=== PATIENT | male | born 1945 | race American Indian/Alaskan Native ===

== ENCOUNTER 2017-01-30 07:16 | Day surgery (SDC) | payer MEDICARE ==
[2017-01-05 12:37] VITALS: BMI 21.7
[2017-01-30] MEDS ORDERED: Propofol 10 mg/ml Inj (20 ML) ONE ×2 (10:37)
[2017-01-30] MEDS ORDERED: Midazolam 2 MG/2 ML VIAL ONE (10:50)
[2017-01-30] MEDS ORDERED: Lidocaine Hydrochloride 5 ML INJ ONE (10:51)
[2017-01-30] MEDS ORDERED: Lactated Ringer's 1,000 ML IV SCH (11:30)
[2017-01-30 11:40] VITALS: TEMP 96.9; O2SAT 100
[2017-01-30 13:02] VITALS: BP 138/68; PULSE 60; RESP 15
== END 2017-01-30 12:50 | disposition home or self-care (01) ==
LOC: C.ENDO 07:16
PROVIDERS: ATTEND Internal Medicine Gastroenterology
DX: K21.0 Gastro-esophageal reflux disease with esophagitis (principal); D50.9 Iron deficiency anemia, unspecified; K44.9 Diaphragmatic hernia without obstruction or gangrene; K29.70 Gastritis, unspecified, without bleeding; K25.9 Gastric ulcer, unspecified as acute or chronic, without hemorrhage or perforation; K29.80 Duodenitis without bleeding; K20.9 Esophagitis, unspecified; K29.50 Unspecified chronic gastritis without bleeding
CPT/HCPCS: 43239; 45378; 82948; 88305; 88312; 88313; 88342; J2250; J2704; J3010; J7120

== ENCOUNTER 2017-07-03 06:34 | Day surgery (SDC) | payer MEDICARE ==
[2017-04-03 07:24] VITALS: BMI 20.9
[2017-07-03 07:44] VITALS: O2SAT 100
[2017-07-03] MEDS ORDERED: Dextrose 50% VIAL Inj (50 ml) IV ONE (09:50)
--- NOTE | 2017-07-03 09:58 | CP.SDSHP ---
Same Day Surgery H & P - History Proposed Procedure: colonoscopy Pre-Op Diagnosis: iron deficiency anemia - Previous Medical/Surgical History Cardiac: Hx of CHF Endocrine/Metabolic: Diabetes - Allergies Allergies: Allergies No Known Allergies Allergy (Verified 07/03/17 07:21) - Physical Exam General Appearance: NAD Vital Signs: Vital Signs 07/03/17 07/03/17 07:10 07:20 Temperature 97 F L Pulse Rate 76 76 Respiratory 19 Rate Blood Pressure 148/80 O2 Sat by Pulse 100 Oximetry Mental Status: Alert & Oriented x3 Neuro: WNL Heart: WNL Lungs: WNL GI: WNL - {Optional Preform as Required} Abdomen: WNL - Impression Pt. Evaluated Today:Candidate for Anesthesia & Procedure: Yes - Date & Time Date: 07/03/17 Time: 09:58 Short Stay Discharge - Short Stay Discharge Admitting Diagnosis/Reason for Visit: ANEMIA Disposition: HOME/ ROUTINE
[2017-07-03] MEDS ORDERED: Propofol 10 mg/ml Inj (20 ML) ONE (10:03)
[2017-07-03 14:42] VITALS: TEMP 96.8
[2017-07-03 14:55] VITALS: BP 140/81; PULSE 62; RESP 13
== END 2017-07-03 12:20 | disposition home or self-care (01) ==
LOC: C.ENDO 06:34
PROVIDERS: ATTEND Internal Medicine Gastroenterology
DX: D50.9 Iron deficiency anemia, unspecified (principal); Z53.09 Procedure and treatment not carried out because of other contraindication; E11.9 Type 2 diabetes mellitus without complications
CPT/HCPCS: 45378; 82948; J2704; J7070

== ENCOUNTER 2017-09-25 00:56 | Inpatient (IN) | payer MEDICARE ==
[2017-09-25 00:56] VITALS: BMI 21.2
[2017-09-25 01:44] LABS: URINE BILIRUBIN NEGATIVE (NEGATIVE); URINE CLARITY Clear (Clear); URINE COLOR Yellow (YELLOW); URINE GLUCOSE (UA) 1+ mg/dL (Normal); URINE LEUKOCYTE ESTERASE NEG Leu/uL (Negative); URINE PROTEIN 2+ mg/dL (NEGATIVE); URINE UROBILINOGEN NORMAL mg/dL (0.2-1.0)
[2017-09-25 02:02] LABS: URINE BLOOD TRACE (NEGATIVE)
[2017-09-25 02:26] LABS: BASO % 0.3 % (0.0-2.0); EOS # 0.1 K/uL (0.0-0.7); EOS % 0.8 % (0.0-4.0); HEMOGLOBIN 11.3 g/dL (12.0-18.0); LYMPH # 0.7 K/uL (1.0-4.3); LYMPH % 5.5 % (20.0-40.0); MEAN CELL VOLUME 82.9 fL (80.0-94.0); MEAN CORPUSCULAR HEMOGLOBIN 26.9 pg (27.0-31.0); MEAN CORPUSCULAR HGB CONC 32.5 g/dL (33.0-37.0); MEAN PLATELET VOLUME 8.8 fL (7.2-11.7); MONO # 0.4 K/uL (0.0-0.8); MONO % 2.9 % (0.0-10.0); NEUT # 11.1 K/uL (1.8-7.0); NEUT % 90.5 % (50.0-75.0); NRBC % 0.1 % (0.0-2.0); PLATELET COUNT 305 K/uL (130-400); RBC 4.18 Mil/uL (4.40-5.90); WHITE BLOOD COUNT 12.2 K/uL (4.8-10.8)
[2017-09-25 02:51] LABS: ALB/GLOB RATIO 0.9 (1.0-2.1); ALBUMIN 4.3 g/dL (3.5-5.0); CALCIUM 9.6 mg/dl (8.6-10.4)
[2017-09-25 03:15] LABS: LYMPHOCYTE 7 % (20-40); MONOCYTE 5 % (0-10); NEUTROPHIL 88 % (50-75); PLATELET CLUMPS PRESENT; PLATELET ESTIMATE NORMAL (NORMAL); TOTAL CELLS COUNTED 100
[2017-09-25 03:16] LABS: ANISOCYTOSIS SLIGHT
[2017-09-25] MEDS ORDERED: Dextrose 50% SYRINGE Inj (50 ml) IV STA (03:36)
[2017-09-25] MEDS ORDERED: Dextrose 50% SYRINGE Inj (50 ml) ONE (03:39)
--- NOTE | 2017-09-25 05:03 | C.PDOC ---
History Of Present Illness 72yo male, history of diabetes, hypertension, pancreatitis, BPH, CHF and CKD, brought to ER by EMS after he was found altered at home with a glucose level of 23; patient was given dextrose by EMS en route to ER with improvement of symptoms. Prior records reviewed, and patient was seen at [facility] on 09/20 with hypolgcemia and right sided facial droop, was evaluated and had a MRI/MRA, CT Head, which were both unremarkable for a stroke. Patient was admitted overnight for observation and discharged home on 09/21/17. He currently has no other medical complaints. Time Seen by Provider: 09/25/17 01:06 Chief Complaint (Nursing): Medical Clearance History Per: EMS, Family History/Exam Limitations: no limitations Onset/Duration Of Symptoms: Hrs Current Symptoms Are (Timing): Better Past Medical History Reviewed: Historical Data, Nursing Documentation, Vital Signs Vital Signs: Last Vital Signs Temp 97.2 F L 09/25/17 01:02 Pulse 67 09/25/17 01:02 Resp 20 09/25/17 01:02 BP 175/87 H 09/25/17 01:02 Pulse Ox 97 09/25/17 05:08 - Medical History PMH: Anemia, Arthritis, CHF, Diabetes, Gastrointestinal Ulcer, HTN, Hypercholesterolemia, Pancreatitis (CHRONIC), Peripheral Edema, Chronic Kidney Disease Comment Only: Seizures (pt denies) Surgical History: Endoscopy Denies: Pacemaker - [facility] Procedures FLORESITA ING HRN REP-GRFT NOS (05/04/14) INSERTION OF INFUSION DEV INTO R FEMOR VEIN, PERC APPROACH (09/15/17) INTRODUCE OF OTH THERAP SUBST INTO RESP TRACT, VIA OPENING (08/22/17) Family History: States: No Known Family Hx - Social History Hx Tobacco Use: No Hx Alcohol Use: Yes (H/O ETOH ABUSE) Hx Substance Use: No - Immunization History Hx Tetanus Toxoid Vaccination: No Hx Influenza Vaccination: Yes Hx Pneumococcal Vaccination: No Review Of Systems Except As Marked, All Systems Reviewed And Found Negative. Constitutional: Positive for: Weakness, Malaise. Negative for: Fever, Chills Eyes: Negative for: Pain, Vision Change, Eyelid Inflammation, Redness ENT: Negative for: Ear Pain, Ear Discharge, Nose Congestion, Throat Swelling Cardiovascular: Negative for: Chest Pain, Palpitations, Orthopnea Respiratory: Negative for: Cough, Shortness of Breath, Hemoptysis, SOB with Excertion, Pleuritic Pain Gastrointestinal: Negative for: Nausea, Vomiting, Constipation, Melena Genitourinary: Negative for: Dysuria, Hematuria Musculoskeletal: Negative for: Neck Pain, Back Pain Skin: Negative for: Rash Neurological: Positive for: Weakness, Confusion. Negative for: Altered Mental Status Psych: Negative for: Anxiety Physical Exam - Physical Exam Appears: Non-toxic, Other (frail, weak appearing) Skin: Normal Color, Warm, Dry Head: Atraumatic, Normacephalic Eye(s): bilateral: Normal Inspection, PERRL Oral Mucosa: Moist Neck: Normal ROM, Supple Chest: Symmetrical Cardiovascular: Rhythm Regular Respiratory: Normal Breath Sounds, No Wheezing Gastrointestinal/Abdominal: Normal Exam, Soft, No Tenderness Back: Normal Inspection, No CVA Tenderness Extremity: Normal ROM, No Deformity Neurological/Psych: Oriented x3 Gait: Steady ED Course And Treatment - Laboratory Results Result Diagrams: 09/25/17 02:23 09/25/17 02:23 O2 Sat by Pulse Oximetry: 97 (RA) Pulse Ox Interpretation: Normal Critical Care Time - Critical Care Note Total Time (in mins): 30 Documented critical care: time excludes all time spent performing seperately billable procedures. Medical Decision Making Medical Decision Making: Impression: Hypoglycemic episode Plan: -- EKG -- Labs -- CXR -- Dextrose 50ml IVPB Provider called to bedside immediately as glucose dropped to 23, 2nd amp of dextrose given in ER and repeat sugar was 117. CXR reviewed and shows no changes from prior. Time: [address] Beard, and patient to be admitted under his service. Per Dr. beard's request, Dr. Price for endocrine consult. Disposition - Disposition Disposition Time: 06:35 Condition: GOOD - Clinical Impression Clinical Impression: Hypoglycemia, Acute on chronic renal insufficiency, Altered mental status - Scribe Statement The provider has reviewed the documentation as recorded by the Scribe (Kathy Ling) Provider Attestation: All medical record entries made by the Scribe were at my direction and personally dictated by me. I have reviewed the chart and agree that the record accurately reflects my personal performance of the history, physical exam, medical decision making, and the department course for this patient. I have also personally directed, reviewed, and agree with the discharge instructions and disposition.
[2017-09-25] MEDS ORDERED: Docusate-Senna 50 mg-8.6 mg Tab PO PRN (05:36)
--- NOTE | 2017-09-25 07:01 | CT ---
EXAM: CT Abdomen and Pelvis Without Intravenous Contrast CLINICAL HISTORY: 72 years old, male; Pain; Abdominal pain; Patient HX: 09-16-17 images sent; Additional info: Low bs TECHNIQUE: Axial computed tomography images of the abdomen and pelvis without intravenous contrast. All CT scans at this facility use one or more dose reduction techniques, viz.: automated exposure control; ma/kV adjustment per patient size (including targeted exams where dose is matched to indication; i.e. head); or iterative reconstruction technique. 633 images are submitted. Coronal and sagittal reformatted images were created and reviewed. COMPARISON: No relevant prior studies available. FINDINGS: Artifacts: Overlying clothing artifacts. Lung bases: There is moderate perihilar interstitial prominence consistent with viral bronchitis versus reactive airway disease versus chronic changes versus early failure.Bibasilar nonspecific infiltrates are present, consistent with atelectasis or pneumonia. Heart: Cardiomegaly. ABDOMEN:Limitations: Absence of IV contrast decreases sensitivity for detecting vascular and visceral injury and abnormality. Liver: Unremarkable. Gallbladder and bile ducts: Gallbladder distention with mild gallbladder wall prominence. Pancreas: Chronic calcific pancreatitis. No ductal dilation. Spleen: Unremarkable. No splenomegaly. Adrenals: Unremarkable. No mass. Kidneys and ureters: Tiny nonobstructive hyperdensity in the right kidney. Stomach and bowel: Large hiatal hernia with herniation of gastric fundus into the chest. There is delayed emptying versus stasis versus gastroesophageal reflux. There are nonspecific fluid filled stomach, small bowel loops. These findings can represent ileus versus gastroenteritis/enteritis versus slow transit versus peristalsis. Large amount of stool in the colon. Nonspecific colonic wall thickening. Correlation with patient's clinical history of constipation versus stool related colitis is recommended. PELVIS: Appendix: The appendix not identified with complete certainty due to unopacified cecum and distal small bowel. There is lack of intra-abdominal fat. If clinical concern remains, a repeat study with thin sections after an appropriate time interval may allow oral contrast to opacify the cecum. Bladder: Bladder distention. Correlation with patient's voiding status is recommended. Reproductive: Unremarkable. ABDOMEN and PELVIS: Intraperitoneal space: Unremarkable. No free air. No significant fluid collection. Bones/joints: Right hip prosthesis. No acute fracture. No dislocation. Soft tissues: There is ossific densities involving the lateral soft tissues of the right thigh. Vasculature: The aorta demonstrates calcified plaque and is mildly ectatic but normal in caliber. No abdominal aortic aneurysm. Lymph nodes: Unremarkable. No enlarged lymph nodes. IMPRESSION: 1.There is moderate perihilar interstitial prominence consistent with viral bronchitis versus reactive airway disease versus chronic changes versus early failure.Bibasilar nonspecific infiltrates are present, consistent with atelectasis or pneumonia. 2.Large amount of stool in the colon. Nonspecific colonic wall thickening. Correlation with patient's clinical history of constipation versus stool related colitis is recommended.
--- NOTE | 2017-09-25 08:15 | RAD ---
PROCEDURE: CHEST RADIOGRAPH, 1 VIEW HISTORY: abd pain COMPARISON: 03/18/2017 FINDINGS: LUNGS: Clear. PLEURA: No pneumothorax or pleural fluid seen. CARDIOVASCULAR: Normal. OSSEOUS STRUCTURES: No significant abnormalities. VISUALIZED UPPER ABDOMEN: Normal. OTHER FINDINGS: None. IMPRESSION: No active disease.
[2017-09-25 09:48] LABS: HEMOGLOBIN 9.6 g/dL (12.0-18.0); MEAN CORPUSCULAR HEMOGLOBIN 26.9 pg (27.0-31.0); MEAN CORPUSCULAR HGB CONC 33.2 g/dL (33.0-37.0); MEAN PLATELET VOLUME 7.5 fL (7.2-11.7); RBC 3.59 Mil/uL (4.40-5.90); RED CELL DISTRIBUTION WIDTH 16.4 % (11.5-14.5)
[2017-09-25 10:31] LABS: ALB/GLOB RATIO 0.9 (1.0-2.1); ALBUMIN 3.4 g/dL (3.5-5.0); ALT/SGPT 30 U/L (21-72); AST/SGOT 36 U/L (17-59); BLOOD UREA NITROGEN 24 mg/dL (9-20); CALCIUM 8.7 mg/dl (8.6-10.4); GFR AFRICAN-AMERICAN 52; GFR NON-AFRICAN AMERICAN 43; LIPASE < 10 U/L (23-300)
--- NOTE | 2017-09-25 11:42 | HP ---
HISTORY OF PRESENT ILLNESS: This is the patient's third admission to hospital, two at [facility] and now at [facility] over the past 3 weeks for a low blood sugar and confusion. He is a 72-year-old -[place] man, who has now been off diabetes medications for about a week and is now having 20s and 30s at home on blood sugars, even though he is off the diabetes medication. He has a history of diabetes, hypertension, pancreatitis, BPH, CHF, and CKD. He has altered mental status at home, glucose was 23. He was given dextrose in the field. He is doing better now in the ER. We are not sure why his hypoglycemia persists. He did have right facial droop at one time, it is improved. He was ruled out for stroke recently when he came in the last time in [facility]. He was just discharged, 09/21/2017. He has anemia, arthritis, CHF, diabetes, gastrointestinal ulcer, hypertension, high cholesterol, pancreatitis which is chronic, peripheral edema, chronic kidney disease. He had seizures in the past, and endoscopy and pacemaker, bilateral inguinal hernia repairs, insertion of infusion right femoral vein. SOCIAL HISTORY: No smoking. He does drink alcohol. No substance abuse. FAMILY HISTORY: There was diabetes and hypertension in the family. REVIEW OF SYSTEMS: He was found with altered status again. He is weak. He is now in the emergency room after getting dextrose, alert and comfortable, asking to go home again. I told him he is not going home until we try and figure this out. We ordered a CAT scan of the abdomen and pelvis to look for insulinoma, also consult endocrinology to put him on dextrose IV. PHYSICAL EXAMINATION: VITAL SIGNS: He has 97.2 temperature, 67 pulse, 20 respiratory rate, 175/87 blood pressure, and 97%O2 sat. GENERAL: He is alert and oriented x3. He is comfortable, well appearing. He is not adamant anymore. SKIN: Warm and dry. HEENT: Head atraumatic and normocephalic. Extraocular muscles are intact. Pupils equal and reactive to light. Throat is moist. NECK: Supple. HEART: Regular rate. LUNGS: Decreased breath sounds, but clear to auscultation. No wheezes. No rhonchi. No rales. ABDOMEN: Soft and nontender. Positive bowel sounds. No guarding. No rebound. No CVA tenderness. EXTREMITIES: No edema. NEUROLOGIC: He can move all four extremities equally. He is smiling. He can stick out his tongue in midline. Cranial nerves II through XII grossly intact. GCS is 15 at this time. He is oriented x3. THYROID: Midline. No palpable appreciable lymphadenopathy. LABORATORY DATA: On blood test, he has 142 sodium, potassium 4.8, BUN is 27, creatinine is 2, had been on dextrose IV. GFR is 33. Blood sugars were less than 20 after dextrose then went to 69. Calcium is 9.6, total shaq is 0.6, AST is 41, ALT is 36, alk phos 158, total protein is 8.9. White count is high at 12.2, could be stress related. It will check it tomorrow. Hemoglobin is 11.3, hematocrit is 34.7, platelets 305. Urine is clean. Chest x-ray is pending. PLAN: We will blood sugar again. We will consult endocrinology, get a CAT scan, get labs. We will continue with aggressive treatment and care. with hypoglycemia, change in mental status. Zohaib Morgan DO MTDGeoffrey
--- NOTE | 2017-09-25 14:41 | CP.PCM.CON ---
History of Present Illness - History of Present Illness History of Present Illness: Nephrology Consultation Note: Assessment: stable Acute Kidney Injury (N17.9) improved constipation Uncontrolled diabetes mellitus with hypoglycemia Diabetic chronic Kidney Disease (E11.22) Hypertensive Chronic Kidney Disease (I12.9) Chronic Kidney Disease (N18.3) Stage 3 with 580 mg proteinuria (R80.9) likely due to DM Anemia (D64.9), Vit D def with Secondary Hyperparathyroidism (E21.1), HTN (I12.9 ) BPH, diabetic neuropathy, chronic pancreatitis on opiates gastric ulcer, hx of etoh and smoking in past Plan No acute need for renal replacement therapy at this time. Hypertension control with meds as ordered. Patient not on ACEI/ARB due to KHALIDA Tendency and hyperkalemia. resume hydralazine, and norvasc. as per outpt list, pt not on coreg. considering his hypoglycemic episodes, will try to avoid Beta- blockers Monitor Input/Output, daily weights and renal function with basic metabolic panel Patient supposed to be on [place] at home every day, continue at d/c resume lyrica for diabetic neuropathy At home pt on sodium bicarbonate 650 mg 2 times a day, iron 325 mg 3 times a day , multivitamin once a day, Flomax 0.4 mg once a day, calcitriol 0.25 g once a day: resume continue with PPI as pt with hx of gastric ulcer endocrine requested Dose meds/antibiotics for reduced GFR. Avoid fleets enema/magnesium based laxatives. Avoid nephrotoxins/NSAIDs/ iodinated contrast (unless needed emergently) Glycemic control Further work up/management as per primary team Thanks for allowing me to participate in care of your patient. Will follow patient with you. Please call if any Qs. d/w team Dr Juan Diego Light Office: [phone] CC; low sugar reason for consult: KHALIDA, CKD HPI:Pt is a 71 M with hx of uncontrolled diabetes Mellitus ( 30 years) [ endocrine Dr Matson as outpt] with retinopathy, hypertension (15-20 years), CKD 3 (baseline cr 2.0 range), s/p Right total hip replacement, gout, chronic pancreatitis on chronic opiates as morphine, gastric ulcer (EGD jan 2017) with hiatal hernia Presented to the hospital With AMS and hypoglycemia. Renal consult for kidney disease management pt has uncontrolled DM with sugars ranging from 20 to 500+ he had recent hospitalizations for DKA/hyperglycemia and hypoglycemia ROS: feels better now. denies CP/SOB. reports nausea and upper abdomen pain. rest all other negative except as mentioned in HPI Physical Examination: General Appearance: in no acute respiratory distress, co-operative . better appearing Vitals reviewed and noted as below Head; Atraumatic, normocephalic ENT: no ulcers no thrush. Tongue is midline. Oropharynx: no rash or ulcers. EYES: Pupils are equal, round and reactive to light accommodation. Eye muscles and extraocular movement intact. Sclera is anicteric. Neck; supple no lymphadenopathy, no thyromegaly or bruit Lungs: Normal respiratory rate/effort. Breath sounds bilateral equal and clear Heart: Normal rate. s1s2 normal. No rub or gallop. Extremities: 2+ edema. No varicose veins Neurological: Patient is AO x 3 no focal deficit Skin: Warm and dry. Normal turgor. No rash. Palpitation: Normal elasticity for age Abdomen: Abdomen is soft. Bowel sounds +. There is no abdominal tenderness, no guarding/rigidity no organomegaly Psych: normal affect/mood and good insight MSK: no joint tenderness or swelling. Digits and nails normal, no deformity : kidney or bladder not palpable Labs/imaging reviewed. Past medical history, past surgical history, family history, social history, allergy reviewed and noted as below Family hx: no hx of CKD. Rest non-contributory Work up: jan 2017: a1c 8.5 urine proc/cr 724 Ua 30 pr no blood 04/04/2017: Na 140 K 6 Bicarb 17 BUN/Cr 35/2.2 (GFR 38%) PTH 881 Vit D <13 Hb 11.3 06/11/2017: SPEP neg [place]/lambda ratio normal although faint free lambda in JANI albumin 4.2 TSH 2.3 A1c 9.6% LDL 41 Hb 12.1 9% Ferritin 28 folate >20 B12 >1000 PTH 902 Phos 4.7 Vit D <13 Na 135 K 5.5 Bicarb 19 Ca 9.2 BUN/Cr 40/2.0 (GFR 42) UA 30 protein 500 glucose no blood pr/cr ratio 587 mg/gr creat as outpt leg art doppler/JENNYFER: WNL, renal sono 7 mm cyst and aortic sono: no aneursym Past Patient History - Infectious Disease Hx of Infectious Diseases: None - Tetanus Immunizations Tetanus Immunization: Unknown - Past Medical History & Family History Past Medical History?: Yes - Past Social History Smoking Status: Former Smoker - CARDIAC Hx Congestive Heart Failure: Yes Hx Hypercholesterolemia: Yes Hx Hypertension: Yes Hx Pacemaker: No Hx Peripheral Edema: Yes - PULMONARY Hx Respiratory Disorders: Yes (USED TO SMOKE 3 PPD X 35 YRS.QUIT 1989) - NEUROLOGICAL Hx Seizures: (pt denies) - HEENT Hx HEENT Problems: Yes Hx Cataracts: Yes (BILATERAL) - RENAL Hx Chronic Kidney Disease: Yes - ENDOCRINE/METABOLIC Hx Diabetes Mellitus Type 2: Yes - HEMATOLOGICAL/ONCOLOGICAL Hx Anemia: Yes - INTEGUMENTARY Hx Dermatological Problems: No - MUSCULOSKELETAL/RHEUMATOLOGICAL Hx Arthritis: Yes - GASTROINTESTINAL Hx Pancreatitis: Yes (CHRONIC) - GENITOURINARY/GYNECOLOGICAL Hx Genitourinary Disorders: Yes Hx Prostate Problems: Yes (R TURP for BPH) - PSYCHIATRIC Hx Substance Use: No - SURGICAL HISTORY Hx Arthroscopy: Yes (LEFT SHOULDER) Hx Cataract Extraction: Yes (LEFT EYE) Hx Joint Replacement: Yes (RIGHT HIP ) Hx Musculoskeletal Surgery: Yes Hx Orthopedic Surgery: Yes Other/Comment: hernia repair, left shoulder torn ligament - ANESTHESIA Hx Anesthesia: Yes Hx Anesthesia Reactions: No Hx Malignant Hyperthermia: No Meds Allergies/Adverse Reactions: Allergies Allergy/AdvReac Type Severity Reaction Status Date / Time No Known Allergies Allergy Verified 09/20/17 12:37 - Medications Medications: Current Medications Amlodipine Besylate (Norvasc) 10 mg PO DAILY [facility] Last Admin: 09/25/17 09:32 Dose: 10 mg Aspirin (Ecotrin) 81 mg PO DAILY [facility] Last Admin: 09/25/17 09:31 Dose: 81 mg Calcitriol (Rocaltrol) 0.25 mcg PO DAILY [facility] Furosemide (Lasix) 40 mg PO BID [facility] Hydralazine HCl (Apresoline) 100 mg PO TID [facility] Pantoprazole Sodium (Protonix Ec Tab) 40 mg PO DAILY [facility] Pregabalin (Lyrica) 75 mg PO BID [facility] Rosuvastatin Calcium (Crestor) 5 mg PO HS [facility] Senna/Docusate Sodium (Senokot S 50 Mg-8.6 Mg) 1 tab PO BID PRN PRN Reason: Constipation Last Admin: 09/25/17 09:31 Dose: 1 tab Sodium Bicarbonate (Sodium Bicarbonate Tab) 650 mg PO BID [facility] Last Admin: 09/25/17 09:32 Dose: 650 mg Tamsulosin HCl (Flomax) 0.4 mg PO DAILY [facility] Last Admin: 09/25/17 09:31 Dose: 0.4 mg Results - Vital Signs Recent Vital Signs: Last Vital Signs Temp 98 F 09/25/17 09:36 Pulse 78 09/25/17 09:36 Resp 18 09/25/17 09:36 BP 140/86 09/25/17 09:36 Pulse Ox 98 09/25/17 09:36 - Labs Result Diagrams: 09/25/17 09:38 09/25/17 09:38 Labs: Laboratory Results - last 24 hr 09/25/17 09/25/17 09/25/17 01:03 01:38 02:23 WBC 12.2 H D RBC 4.18 L Hgb 11.3 L Hct 34.7 L MCV 82.9 D MCH 26.9 L MCHC 32.5 L RDW 17.0 H Plt Count 305 MPV 8.8 Neut % (Auto) 90.5 H Lymph % (Auto) 5.5 L [place] % (Auto) 2.9 Eos % (Auto) 0.8 Baso % (Auto) 0.3 Neut # (Auto) 11.1 H Lymph # (Auto) 0.7 L [place] # (Auto) 0.4 Eos # (Auto) 0.1 Baso # (Auto) 0.0 Neutrophils % (Manual) 88 H Lymphocytes % (Manual) 7 L Monocytes % (Manual) 5 Platelet Estimate Normal Plt Clumps, EDTA Present Anisocytosis (manual) Slight Sodium Potassium Chloride Carbon Dioxide Anion Gap BUN Creatinine Est GFR ( Amer) Est GFR (Non-Af Amer) POC Glucose (mg/dL) 117 H Random Glucose Hemoglobin A1c Calcium Total Bilirubin AST ALT Alkaline Phosphatase Total Protein Albumin Globulin Albumin/Globulin Ratio Lipase Urine Color Yellow Urine Clarity Clear Urine pH 5.0 Ur Specific [place] 1.017 Urine Protein 2+ H Urine Glucose (UA) 1+ H Urine Ketones Negative Urine Blood Trace H Urine Nitrate Negative Urine Bilirubin Negative Urine Urobilinogen Normal Ur Leukocyte Esterase Neg Urine WBC (Auto) < 1 Urine RBC (Auto) 1 09/25/17 09/25/17 09/25/17 02:23 03:35 04:35 WBC RBC Hgb Hct MCV MCH MCHC RDW Plt Count MPV Neut % (Auto) Lymph % (Auto) [place] % (Auto) Eos % (Auto) Baso % (Auto) Neut # (Auto) Lymph # (Auto) [place] # (Auto) Eos # (Auto) Baso # (Auto) Neutrophils % (Manual) Lymphocytes % (Manual) Monocytes % (Manual) Platelet Estimate Plt Clumps, EDTA Anisocytosis (manual) Sodium 142 Potassium 4.8 Chloride 107 Carbon Dioxide 21 L Anion Gap 20 BUN 27 H Creatinine 2.0 H Est GFR ( Amer) 40 Est GFR (Non-Af Amer) 33 POC Glucose (mg/dL) < 20 L* 69 Random Glucose 58 L Hemoglobin A1c Calcium 9.6 Total Bilirubin 0.6 AST 41 ALT 36 Alkaline Phosphatase 158 H D Total Protein 8.9 H Albumin 4.3 Globulin 4.6 H Albumin/Globulin Ratio 0.9 L Lipase Urine Color Urine Clarity Urine pH Ur Specific [place] Urine Protein Urine Glucose (UA) Urine Ketones Urine Blood Urine Nitrate Urine Bilirubin Urine Urobilinogen Ur Leukocyte Esterase Urine WBC (Auto) Urine RBC (Auto) 09/25/17 09/25/17 09/25/17 09:38 09:38 09:38 WBC 6.0 D RBC 3.59 L Hgb 9.6 L Hct 29.1 L MCV 81.0 MCH 26.9 L MCHC 33.2 RDW 16.4 H Plt Count 392 MPV 7.5 Neut % (Auto) Lymph % (Auto) [place] % (Auto) Eos % (Auto) Baso % (Auto) Neut # (Auto) Lymph # (Auto) [place] # (Auto) Eos # (Auto) Baso # (Auto) Neutrophils % (Manual) Lymphocytes % (Manual) Monocytes % (Manual) Platelet Estimate Plt Clumps, EDTA Anisocytosis (manual) Sodium 139 Potassium 4.9 Chloride 108 H Carbon Dioxide 19 L Anion Gap 17 BUN 24 H Creatinine 1.6 H Est GFR ( Amer) 52 Est GFR (Non-Af Amer) 43 POC Glucose (mg/dL) Random Glucose 88 Hemoglobin A1c 11.8 H Calcium 8.7 Total Bilirubin 0.4 AST 36 ALT 30 Alkaline Phosphatase 115 Total Protein 7.2 Albumin 3.4 L D Globulin 3.8 Albumin/Globulin Ratio 0.9 L Lipase < 10 L Urine Color Urine Clarity Urine pH Ur Specific [place] Urine Protein Urine Glucose (UA) Urine Ketones Urine Blood Urine Nitrate Urine Bilirubin Urine Urobilinogen Ur Leukocyte Esterase Urine WBC (Auto) Urine RBC (Auto) 09/25/17 11:27 WBC RBC Hgb Hct MCV MCH MCHC RDW Plt Count MPV Neut % (Auto) Lymph % (Auto) [place] % (Auto) Eos % (Auto) Baso % (Auto) Neut # (Auto) Lymph # (Auto) [place] # (Auto) Eos # (Auto) Baso # (Auto) Neutrophils % (Manual) Lymphocytes % (Manual) Monocytes % (Manual) Platelet Estimate Plt Clumps, EDTA Anisocytosis (manual) Sodium Potassium Chloride Carbon Dioxide Anion Gap BUN Creatinine Est GFR ( Amer) Est GFR (Non-Af Amer) POC Glucose (mg/dL) 196 H Random Glucose Hemoglobin A1c Calcium Total Bilirubin AST ALT Alkaline Phosphatase Total Protein Albumin Globulin Albumin/Globulin Ratio Lipase Urine Color Urine Clarity Urine pH Ur Specific [place] Urine Protein Urine Glucose (UA) Urine Ketones Urine Blood Urine Nitrate Urine Bilirubin Urine Urobilinogen Ur Leukocyte Esterase Urine WBC (Auto) Urine RBC (Auto)
[2017-09-25 17:07] VITALS: RESP 20
[2017-09-25] MEDS: (Novolog) Insulin Aspart, Recombinant 100 u/ml 10 ml vial SC SCH (21:51)
[2017-09-26] MEDS: (Novolog) Insulin Aspart, Recombinant 100 u/ml 10 ml vial SC SCH ×4 (07:46→21:38)
[2017-09-26] MEDS: Dextrose 5%/0.9% NS 1,000 ML IV SCH (07:52)
--- NOTE | 2017-09-26 08:11 | CP.PCM.CON ---
<Janell Sandy - Last Filed: 09/26/17 12:04> History of Present Illness - History of Present Illness History of Present Illness: PGY4 GI Initial consult Ferny Davidson is a 72M w/ hx of recurrent pancreatitis, HTN, uncontrolled insulin dependent DM who presented with AMS due to hypoglycemia. He was found to have a glucose level of 26~. A CT revealed large amounts of stool in the colon. Since admission, he notes 2 large BM. He denies any blood, melena, or change in caliber of stool. He states that he has chronic constipation and often does not feel like his had a complete evacuation. Denies any diarrhea, blood, or change in stool color. Pt also denies any fever, chills, and diaphoresis. His last colonoscopy was 06/2017 and due to poor prep was told to repeat colonoscopy in 3 months. He does take chronic opiates for pain daily and states that he takes OTC stool softners intermittently. Last episode of pancreatitis was 2-3 years prior and [facility] [place]. He admits to being a former drinker and describes a considerable amount. ROS: 12 point ROS conducted, neg other than what was stated above. PMH: uncontrolled DM, HTN, recurrent episodes of pacreatitis, BPH, OA PSH: Right LEONIE, Left shoulder scope, B/L inguinal hernia repair (2013) ALL: NKDA SocialHx: Former smoker (quit in 1990) 3-4ppd x 35y, former heavy drinker (quit in the ) Endoscopy hx: Colonscopy 06/2017 poor prep, EGD 03/2017 healing gastic ulcer, EGD & colonosccopy 02/2017 poor prep, class three gastric ulcer Past Patient History - Infectious Disease Hx of Infectious Diseases: None - Tetanus Immunizations Tetanus Immunization: Unknown - Past Medical History & Family History Past Medical History?: Yes - Past Social History Smoking Status: Former Smoker - CARDIAC Hx Congestive Heart Failure: Yes Hx Hypercholesterolemia: Yes Hx Hypertension: Yes - PULMONARY Hx Respiratory Disorders: Yes (USED TO SMOKE 3 PPD X 35 YRS.QUIT 1989) - NEUROLOGICAL Hx Seizures: (pt denies) - HEENT Hx HEENT Problems: Yes Hx Cataracts: Yes (BILATERAL) - RENAL Hx Chronic Kidney Disease: Yes - ENDOCRINE/METABOLIC Hx Diabetes Mellitus Type 2: Yes - HEMATOLOGICAL/ONCOLOGICAL Hx Anemia: Yes - INTEGUMENTARY Hx Dermatological Problems: No - MUSCULOSKELETAL/RHEUMATOLOGICAL Hx Falls: No - GASTROINTESTINAL Hx Pancreatitis: Yes (CHRONIC) - GENITOURINARY/GYNECOLOGICAL Hx Genitourinary Disorders: Yes Hx Prostate Problems: Yes (R TURP for BPH) - PSYCHIATRIC Hx Substance Use: No - SURGICAL HISTORY Hx Arthroscopy: Yes (LEFT SHOULDER) Hx Cataract Extraction: Yes (LEFT EYE) Hx Joint Replacement: Yes (RIGHT HIP ) Hx Musculoskeletal Surgery: Yes Hx Orthopedic Surgery: Yes Other/Comment: hernia repair, left shoulder torn ligament - ANESTHESIA Hx Anesthesia: Yes Hx Anesthesia Reactions: No Hx Malignant Hyperthermia: No Meds Allergies/Adverse Reactions: Allergies Allergy/AdvReac Type Severity Reaction Status Date / Time No Known Allergies Allergy Verified 09/20/17 12:37 - Medications Medications: Current Medications Amlodipine Besylate (Norvasc) 10 mg PO DAILY [facility] Last Admin: 09/25/17 09:32 Dose: 10 mg Aspirin (Ecotrin) 81 mg PO DAILY [facility] Last Admin: 09/25/17 09:31 Dose: 81 mg Calcitriol (Rocaltrol) 0.25 mcg PO DAILY [facility] Furosemide (Lasix) 40 mg PO BID [facility] Last Admin: 09/25/17 18:13 Dose: 40 mg Hydralazine HCl (Apresoline) 100 mg PO TID [facility] Last Admin: 09/25/17 18:12 Dose: 100 mg Dextrose/Sodium Chloride (Dextrose 5%/0.9% Ns 1000 Ml) 1,000 mls @ 40 mls/hr IV .Q24H [facility] Last Admin: 09/26/17 07:52 Dose: 40 mls/hr Insulin Aspart (Novolog) 0 unit SC ACHS [facility] Last Admin: 09/26/17 07:46 Dose: Not Given Lactulose (Enulose) 20 gm PO BID PRN PRN Reason: Constipation Pantoprazole Sodium (Protonix Ec Tab) 40 mg PO DAILY [facility] Pregabalin (Lyrica) 75 mg PO BID [facility] Last Admin: 09/25/17 18:11 Dose: 75 mg Rosuvastatin Calcium (Crestor) 5 mg PO HS [facility] Last Admin: 09/25/17 21:50 Dose: 5 mg Senna/Docusate Sodium (Senokot S 50 Mg-8.6 Mg) 1 tab PO BID PRN PRN Reason: Constipation Last Admin: 09/25/17 09:31 Dose: 1 tab Sodium Bicarbonate (Sodium Bicarbonate Tab) 650 mg PO BID [facility] Last Admin: 09/25/17 18:11 Dose: 650 mg Tamsulosin HCl (Flomax) 0.4 mg PO DAILY [facility] Last Admin: 09/25/17 09:31 Dose: 0.4 mg Physical Exam - Constitutional Appears: Well, No Acute Distress - Head Exam Head Exam: ATRAUMATIC, NORMOCEPHALIC - Eye Exam Eye Exam: Normal appearance - ENT Exam ENT Exam: Mucous Membranes Moist, Normal Exam - Neck Exam Neck exam: Positive for: Normal Inspection - Respiratory Exam Respiratory Exam: Clear to Auscultation Bilateral, NORMAL BREATHING PATTERN. absent: Rales, Rhonchi, Wheezes, Respiratory Distress - Cardiovascular Exam Cardiovascular Exam: REGULAR RHYTHM, +S1, +S2 - GI/Abdominal Exam GI & Abdominal Exam: Normal Bowel Sounds, Soft. absent: Diminished Bowel Sounds , Distended, Firm, Guarding, Organomegaly, Rebound, Rigid, Tenderness - Extremities Exam Extremities exam: Negative for: joint swelling, pedal edema - Neurological Exam Neurological exam: Alert, Oriented x3 - Psychiatric Exam Psychiatric exam: Normal Affect, Normal Mood - Skin Skin Exam: Dry, Intact, Normal Color, Warm Results - Vital Signs Recent Vital Signs: Last Vital Signs Temp 98.4 F 09/26/17 00:00 Pulse 59 L 09/26/17 00:00 Resp 20 09/26/17 00:00 BP 123/70 09/26/17 00:00 Pulse Ox 98 09/26/17 00:00 - Labs Result Diagrams: 09/26/17 07:59 09/26/17 07:59 Labs: Laboratory Results - last 24 hr 09/25/17 09/25/17 09/25/17 09:38 09:38 09:38 WBC 6.0 D RBC 3.59 L Hgb 9.6 L Hct 29.1 L MCV 81.0 MCH 26.9 L MCHC 33.2 RDW 16.4 H Plt Count 392 MPV 7.5 Sodium 139 Potassium 4.9 Chloride 108 H Carbon Dioxide 19 L Anion Gap 17 BUN 24 H Creatinine 1.6 H Est GFR ( Amer) 52 Est GFR (Non-Af Amer) 43 POC Glucose (mg/dL) Random Glucose 88 Hemoglobin A1c 11.8 H Calcium 8.7 Total Bilirubin 0.4 AST 36 ALT 30 Alkaline Phosphatase 115 Total Protein 7.2 Albumin 3.4 L D Globulin 3.8 Albumin/Globulin Ratio 0.9 L Lipase < 10 L 09/25/17 09/25/17 09/25/17 11:27 16:55 21:04 WBC RBC Hgb Hct MCV MCH MCHC RDW Plt Count MPV Sodium Potassium Chloride Carbon Dioxide Anion Gap BUN Creatinine Est GFR ( Amer) Est GFR (Non-Af Amer) POC Glucose (mg/dL) 196 H 131 H 193 H Random Glucose Hemoglobin A1c Calcium Total Bilirubin AST ALT Alkaline Phosphatase Total Protein Albumin Globulin Albumin/Globulin Ratio Lipase 09/26/17 09/26/17 09/26/17 02:18 06:06 06:09 WBC RBC Hgb Hct MCV MCH MCHC RDW Plt Count MPV Sodium Potassium Chloride Carbon Dioxide Anion Gap BUN Creatinine Est GFR ( Amer) Est GFR (Non-Af Amer) POC Glucose (mg/dL) 90 40 L 40 L Random Glucose Hemoglobin A1c Calcium Total Bilirubin AST ALT Alkaline Phosphatase Total Protein Albumin Globulin Albumin/Globulin Ratio Lipase 09/26/17 09/26/17 06:27 07:31 WBC RBC Hgb Hct MCV MCH MCHC RDW Plt Count MPV Sodium Potassium Chloride Carbon Dioxide Anion Gap BUN Creatinine Est GFR ( Amer) Est GFR (Non-Af Amer) POC Glucose (mg/dL) 55 L 182 H Random Glucose Hemoglobin A1c Calcium Total Bilirubin AST ALT Alkaline Phosphatase Total Protein Albumin Globulin Albumin/Globulin Ratio Lipase Assessment & Plan - Assessment and Plan (Free Text) Assessment: Ferny Davidson is a 72M w/ hx of recurrent pancreatitis, HTN, uncontrolled insulin dependent DM who presented with AMS due to hypoglycemia. He was found to have a glucose level of 26~, CT revealed moderate to severe stool burden in the colon Acute on chronic constipation Hx of pancreatitis hx of opiod use hx of DM Hypoglycemia Plan: -advance diet as tolerated -continue miralax BID -lactulose daily -recommend reducing opiod use -will need a colonoscopy as an oupt with Dr. Rdz -recommend Miralax BID as an oupt as well -will sign off D/W Dr. Rodriguze <Zeeshan Rodriguez - Last Filed: 09/26/17 12:36> Meds - Medications Medications: Current Medications Amlodipine Besylate (Norvasc) 10 mg PO DAILY [facility] Last Admin: 09/26/17 10:07 Dose: 10 mg Aspirin (Ecotrin) 81 mg PO DAILY [facility] Last Admin: 09/26/17 10:07 Dose: 81 mg Calcitriol (Rocaltrol) 0.25 mcg PO DAILY [facility] Last Admin: 09/26/17 10:07 Dose: 0.25 mcg Furosemide (Lasix) 40 mg PO BID [facility] Last Admin: 09/26/17 10:07 Dose: 40 mg Heparin Sodium (Porcine) (Heparin) 5,000 units SC Q12 [facility] Last Admin: 09/26/17 10:15 Dose: 5,000 units Hydralazine HCl (Apresoline) 100 mg PO TID [facility] Last Admin: 09/26/17 10:06 Dose: 100 mg Dextrose/Sodium Chloride (Dextrose 5%/0.9% Ns 1000 Ml) 1,000 mls @ 40 mls/hr IV .Q24H [facility] Last Admin: 09/26/17 07:52 Dose: 40 mls/hr Insulin Aspart (Novolog) 0 unit SC ACHS [facility] Last Admin: 09/26/17 07:46 Dose: Not Given Lactulose (Enulose) 20 gm PO BID PRN PRN Reason: Constipation Lactulose (Enulose) 20 gm PO [facility] Pantoprazole Sodium (Protonix Ec Tab) 40 mg PO DAILY [facility] Last Admin: 09/26/17 10:07 Dose: 40 mg Polyethylene Glycol (Miralax) 17 gm PO BID [facility] Pregabalin (Lyrica) 75 mg PO BID [facility] Last Admin: 09/26/17 10:07 Dose: 75 mg Rosuvastatin Calcium (Crestor) 5 mg PO [facility] Last Admin: 09/25/17 21:50 Dose: 5 mg Senna/Docusate Sodium (Senokot S 50 Mg-8.6 Mg) 1 tab PO BID PRN PRN Reason: Constipation Last Admin: 09/25/17 09:31 Dose: 1 tab Sodium Bicarbonate (Sodium Bicarbonate Tab) 650 mg PO BID [facility] Last Admin: 09/26/17 10:07 Dose: 650 mg Tamsulosin HCl (Flomax) 0.4 mg PO DAILY [facility] Last Admin: 09/26/17 10:07 Dose: 0.4 mg Results - Vital Signs Recent Vital Signs: Last Vital Signs Temp 98.7 F 09/26/17 08:12 Pulse 71 09/26/17 08:12 Resp 20 09/26/17 08:12 BP 127/67 05/04/18 10:07 Pulse Ox 99 09/26/17 08:12 - Labs Result Diagrams: 09/26/17 07:59 09/26/17 07:59 Labs: Laboratory Results - last 24 hr 09/25/17 09/25/17 09/26/17 16:55 21:04 02:18 WBC RBC Hgb Hct MCV MCH MCHC RDW Plt Count MPV Sodium Potassium Chloride Carbon Dioxide Anion Gap BUN Creatinine Est GFR ( Amer) Est GFR (Non-Af Amer) POC Glucose (mg/dL) 131 H 193 H 90 Random Glucose Calcium Total Bilirubin AST ALT Alkaline Phosphatase Total Protein Albumin Globulin Albumin/Globulin Ratio 09/26/17 09/26/17 09/26/17 06:06 06:06 06:09 WBC RBC Hgb Hct MCV MCH MCHC RDW Plt Count MPV Sodium Potassium Chloride Carbon Dioxide Anion Gap BUN Creatinine Est GFR ( Amer) Est GFR (Non-Af Amer) POC Glucose (mg/dL) 40 L 40 L 40 L Random Glucose Calcium Total Bilirubin AST ALT Alkaline Phosphatase Total Protein Albumin Globulin Albumin/Globulin Ratio 09/26/17 09/26/17 09/26/17 06:09 06:27 06:27 WBC RBC Hgb Hct MCV MCH MCHC RDW Plt Count MPV Sodium Potassium Chloride Carbon Dioxide Anion Gap BUN Creatinine Est GFR ( Amer) Est GFR (Non-Af Amer) POC Glucose (mg/dL) 40 L 55 L 55 L Random Glucose Calcium Total Bilirubin AST ALT Alkaline Phosphatase Total Protein Albumin Globulin Albumin/Globulin Ratio 09/26/17 09/26/17 09/26/17 07:31 07:59 07:59 WBC 4.5 L RBC 3.32 L Hgb 9.1 L Hct 27.3 L MCV 82.2 MCH 27.3 MCHC 33.2 RDW 16.7 H Plt Count 368 MPV 7.7 Sodium 136 Potassium 5.7 H Chloride 105 Carbon Dioxide 21 L Anion Gap 17 BUN 25 H Creatinine 1.7 H Est GFR ( Amer) 48 Est GFR (Non-Af Amer) 40 POC Glucose (mg/dL) 182 H Random Glucose 196 H Calcium 8.2 L Total Bilirubin 0.4 AST 25 ALT 24 Alkaline Phosphatase 109 Total Protein 6.0 L Albumin 2.8 L Globulin 3.2 Albumin/Globulin Ratio 0.9 L 09/26/17 11:12 WBC RBC Hgb Hct MCV MCH MCHC RDW Plt Count MPV Sodium Potassium Chloride Carbon Dioxide Anion Gap BUN Creatinine Est GFR ( Amer) Est GFR (Non-Af Amer) POC Glucose (mg/dL) 235 H Random Glucose Calcium Total Bilirubin AST ALT Alkaline Phosphatase Total Protein Albumin Globulin Albumin/Globulin Ratio Attending/Attestation - Attestation I have personally seen and examined this patient.: Yes I have fully participated in the care of the patient.: Yes I have reviewed all pertinent clinical information: Yes Notes (Text): 09/26/17 12:35 72 year old male admitted with hypoglcemia, also with severe constipation. Improved. Bowel regimen as above. Will sign off. Outpatient follow up for colonoscopy.
[2017-09-26 08:19] LABS: HEMOGLOBIN 9.1 g/dL (12.0-18.0); MEAN CELL VOLUME 82.2 fL (80.0-94.0); MEAN CORPUSCULAR HEMOGLOBIN 27.3 pg (27.0-31.0); MEAN CORPUSCULAR HGB CONC 33.2 g/dL (33.0-37.0); MEAN PLATELET VOLUME 7.7 fL (7.2-11.7); RBC 3.32 Mil/uL (4.40-5.90); RED CELL DISTRIBUTION WIDTH 16.7 % (11.5-14.5); WHITE BLOOD COUNT 4.5 K/uL (4.8-10.8)
[2017-09-26 08:34] LABS: ALB/GLOB RATIO 0.9 (1.0-2.1); ALBUMIN 2.8 g/dL (3.5-5.0); CALCIUM 8.2 mg/dl (8.6-10.4)
--- NOTE | 2017-09-26 09:42 | PN ---
DATE: SUBJECTIVE: I saw the patient resting comfortably in bed this morning. I am not sure why the dextrose IV is off. I will put him back on that. His blood sugar is low at 55, it was 20. He is a diabetic. He is not on any diabetic medication for the past 48 hours and his blood sugars are still low. He is eating. PHYSICAL EXAMINATION VITAL SIGNS: He has a 98.4 temp, 59 pulse, 123/70 blood pressure, 20 respiratory rate, 98% O2 sat on room air. HEENT: His head is atraumatic, normocephalic. Throat is moist. NECK: Supple. HEART: Regular rate. LUNGS: Decreased breath sounds, but clear. ABDOMEN: Soft, decreased bowel sounds were present. EXTREMITIES: No edema. He is currently on Apresoline, Crestor, dextrose again, Ecotrin, Enulose, Flomax, Lasix 40 twice a day, Lyrica, Norvasc, NovoLog, Protonix, Rocaltrol, Senokot, sodium bicarb. LABORATORY DATA: He has a 6 white count, when he came in it was 12, it is down to 6. Hemoglobin 9.6, 29.1 hematocrit with 392 platelets. He has a 139 sodium, potassium of 4.9, BUN is 24, creatinine 1.6, much better than when he came in, is improving. His GFR is up to 43. His blood sugars were 20, then were 69 and 196, down to 55 this morning. Hemoglobin A1c is 11.8, but overall his blood sugars are mostly being low. Calcium is 8.7, total bili is 0.4, AST 36, ALT is 30, alk phos 115. Urine negative for ketones, trace blood, 2+ protein and 1+ glucose. He did have a CAT scan of the abdomen and pelvis. I was looking for an insulinoma or some kind of tumor. It showed possible bronchitis, reactive airway disease and large amounts of stool in the colon, possibility of ileus or colitis. ASSESSMENT AND PLAN: I called in GI, Renal, and Endocrinology to help him. He is currently on no medicines for diabetes. He is on dextrose to keep his sugar up, we will see what we can do. Continue with aggressive treatment and care on his hypoglycemia in a diabetic and renal insufficiency which improved, questionable ileus, change in mentation and hypertension. Zohaib Morgan DO [facility] # [id number] [facility] SYSTEMGeoffrey
[2017-09-26] MEDS: Pantoprazole 40 mg EC Tab PO SCH (10:07)
[2017-09-26] MEDS ORDERED: Sod Polystyrene Sulf 15 gm/60 ml Susp PO ONE (10:35)
[2017-09-26] MEDS: POLYETHYLENE GLYCOL 3350 17 GM/Dose PACKET PO SCH ×2 (12:54→17:43)
--- NOTE | 2017-09-26 15:49 | CP.PCM.PN ---
Subjective - Date & Time of Evaluation Date of Evaluation: 09/26/17 Time of Evaluation: 15:48 - Subjective Subjective: Nephrology Consultation Note: Assessment: stable Acute Kidney Injury (N17.9) improved constipation Uncontrolled diabetes mellitus with hypoglycemia Diabetic chronic Kidney Disease (E11.22) Hypertensive Chronic Kidney Disease (I12.9) Chronic Kidney Disease (N18.3) Stage 3 with 580 mg proteinuria (R80.9) likely due to DM Anemia (D64.9), Vit D def with Secondary Hyperparathyroidism (E21.1), HTN (I12.9 ) BPH, diabetic neuropathy, chronic pancreatitis on opiates gastric ulcer, hx of etoh and smoking in past Plan No acute need for renal replacement therapy at this time. Hypertension control with meds as ordered. Patient not on ACEI/ARB due to KHALIDA Tendency and hyperkalemia. resume hydralazine, and norvasc. as per outpt list, pt not on coreg. considering his hypoglycemic episodes, will try to avoid Beta- blockers dose of kayexylate today Monitor Input/Output, daily weights and renal function with basic metabolic panel Patient supposed to be on [place] at home every day, continue at d/c resume lyrica for diabetic neuropathy At home pt on sodium bicarbonate 650 mg 2 times a day, iron 325 mg 3 times a day , multivitamin once a day, Flomax 0.4 mg once a day, calcitriol 0.25 g once a day: resume continue with PPI as pt with hx of gastric ulcer endocrine eval requested Dose meds/antibiotics for reduced GFR. Avoid fleets enema/magnesium based laxatives. Avoid nephrotoxins/NSAIDs/ iodinated contrast (unless needed emergently) Glycemic control Further work up/management as per primary team Thanks for allowing me to participate in care of your patient. Will follow patient with you. Please call if any Qs. had d/w team Dr Juan Diego Light Office: [phone] CC; low sugar at night reason for consult: KHALIDA, CKD HPI:Pt is a 71 M with hx of uncontrolled diabetes Mellitus ( 30 years) [ endocrine Dr Matson as outpt] with retinopathy, hypertension (15-20 years), CKD 3 (baseline cr 2.0 range), s/p Right total hip replacement, gout, chronic pancreatitis on chronic opiates as morphine, gastric ulcer (EGD jan 2017) with hiatal hernia Presented to the hospital With AMS and hypoglycemia. Renal consult for kidney disease management pt has uncontrolled DM with sugars ranging from 20 to 500+ he had recent hospitalizations for DKA/hyperglycemia and hypoglycemia ROS: feels better now. denies CP/SOB. resolved nausea and upper abdomen pain. rest all other negative except as mentioned in HPI Physical Examination: General Appearance: in no acute respiratory distress, co-operative . better appearing Vitals reviewed and noted as below Head; Atraumatic, normocephalic ENT: no ulcers no thrush. Tongue is midline. Oropharynx: no rash or ulcers. EYES: Pupils are equal, round and reactive to light accommodation. Eye muscles and extraocular movement intact. Sclera is anicteric. Neck; supple no lymphadenopathy, no thyromegaly or bruit Lungs: Normal respiratory rate/effort. Breath sounds bilateral equal and clear Heart: Normal rate. s1s2 normal. No rub or gallop. Extremities: 1+ edema. No varicose veins Neurological: Patient is AO x 3 no focal deficit Skin: Warm and dry. Normal turgor. No rash. Palpitation: Normal elasticity for age Abdomen: Abdomen is soft. Bowel sounds +. There is no abdominal tenderness, no guarding/rigidity no organomegaly Psych: normal affect/mood and good insight MSK: no joint tenderness or swelling. Digits and nails normal, no deformity : kidney or bladder not palpable Labs/imaging reviewed. Past medical history, past surgical history, family history, social history, allergy reviewed and noted as below Family hx: no hx of CKD. Rest non-contributory Work up: jan 2017: a1c 8.5 urine proc/cr 724 Ua 30 pr no blood 04/04/2017: Na 140 K 6 Bicarb 17 BUN/Cr 35/2.2 (GFR 38%) PTH 881 Vit D <13 Hb 11.3 06/11/2017: SPEP neg Hawkins/lambda ratio normal although faint free lambda in JANI albumin 4.2 TSH 2.3 A1c 9.6% LDL 41 Hb 12.1 9% Ferritin 28 folate >20 B12 >1000 PTH 902 Phos 4.7 Vit D <13 Na 135 K 5.5 Bicarb 19 Ca 9.2 BUN/Cr 40/2.0 (GFR 42) UA 30 protein 500 glucose no blood pr/cr ratio 587 mg/gr creat as outpt leg art doppler/JENNYFER: WNL, renal sono 7 mm cyst and aortic sono: no aneursym Objective - Vital Signs/Intake and Output Vital Signs (last 24 hours): Temp Pulse Resp BP Pulse Ox 98.7 F 71 20 127/67 99 09/26/17 08:12 09/26/17 08:12 09/26/17 08:12 09/26/17 10:07 09/26/17 08:12 Intake and Output: 09/26/17 09/26/17 06:59 18:59 Intake Total 300 200 Balance 300 200 - Medications Medications: Current Medications Amlodipine Besylate (Norvasc) 10 mg PO DAILY [facility] Last Admin: 09/26/17 10:07 Dose: 10 mg Aspirin (Ecotrin) 81 mg PO DAILY [facility] Last Admin: 09/26/17 10:07 Dose: 81 mg Calcitriol (Rocaltrol) 0.25 mcg PO DAILY [facility] Last Admin: 09/26/17 10:07 Dose: 0.25 mcg Furosemide (Lasix) 40 mg PO BID [facility] Last Admin: 09/26/17 10:07 Dose: 40 mg Heparin Sodium (Porcine) (Heparin) 5,000 units SC Q12 [facility] Last Admin: 09/26/17 10:15 Dose: 5,000 units Hydralazine HCl (Apresoline) 100 mg PO TID [facility] Last Admin: 09/26/17 14:13 Dose: 100 mg Dextrose/Sodium Chloride (Dextrose 5%/0.9% Ns 1000 Ml) 1,000 mls @ 40 mls/hr IV .Q24H [facility] Last Admin: 09/26/17 07:52 Dose: 40 mls/hr Insulin Aspart (Novolog) 0 unit SC ACHS [facility] Last Admin: 09/26/17 12:55 Dose: 4 unit Lactulose (Enulose) 20 gm PO BID PRN PRN Reason: Constipation Lactulose (Enulose) 20 gm PO HS [facility] Pantoprazole Sodium (Protonix Ec Tab) 40 mg PO DAILY [facility] Last Admin: 09/26/17 10:07 Dose: 40 mg Polyethylene Glycol (Miralax) 17 gm PO BID [facility] Last Admin: 09/26/17 12:54 Dose: 17 gm Pregabalin (Lyrica) 75 mg PO BID [facility] Last Admin: 09/26/17 10:07 Dose: 75 mg Rosuvastatin Calcium (Crestor) 5 mg PO HS [facility] Last Admin: 09/25/17 21:50 Dose: 5 mg Senna/Docusate Sodium (Senokot S 50 Mg-8.6 Mg) 1 tab PO BID PRN PRN Reason: Constipation Last Admin: 09/25/17 09:31 Dose: 1 tab Sodium Bicarbonate (Sodium Bicarbonate Tab) 650 mg PO BID [facility] Last Admin: 09/26/17 10:07 Dose: 650 mg Tamsulosin HCl (Flomax) 0.4 mg PO DAILY [facility] Last Admin: 09/26/17 10:07 Dose: 0.4 mg - Labs Labs: 09/26/17 07:59 09/26/17 07:59
--- NOTE | 2017-09-26 23:06 | CARD ---
APPROVED REPORT EKG Measurement Heart [id number] <Conclusion> Normal sinus rhythm Minimal voltage criteria for LVH, may be normal variant Borderline ECG
[2017-09-27] MEDS: Dextrose 5%/0.9% NS 1,000 ML IV SCH ×2 (07:11→08:04)
[2017-09-27] MEDS: (Novolog) Insulin Aspart, Recombinant 100 u/ml 10 ml vial SC SCH ×4 (08:03→22:00)
[2017-09-27] MEDS: Sodium Chloride 0.45% 1,000 ML IV SCH (10:00)
[2017-09-27 11:28] LABS: HEMOGLOBIN 9.9 g/dL (12.0-18.0); MEAN CELL VOLUME 81.7 fL (80.0-94.0); MEAN CORPUSCULAR HEMOGLOBIN 27.1 pg (27.0-31.0); MEAN CORPUSCULAR HGB CONC 33.2 g/dL (33.0-37.0); MEAN PLATELET VOLUME 7.7 fL (7.2-11.7); RBC 3.64 Mil/uL (4.40-5.90); RED CELL DISTRIBUTION WIDTH 17.8 % (11.5-14.5); WHITE BLOOD COUNT 4.4 K/uL (4.8-10.8)
[2017-09-27] MEDS: Pantoprazole 40 mg EC Tab PO SCH (11:28)
[2017-09-27] MEDS: POLYETHYLENE GLYCOL 3350 17 GM/Dose PACKET PO SCH ×2 (11:29→17:11)
[2017-09-27 11:49] LABS: ALB/GLOB RATIO 0.8 (1.0-2.1); ALBUMIN 2.8 g/dL (3.5-5.0); CALCIUM 8.4 mg/dl (8.6-10.4)
[2017-09-27] MEDS ORDERED: Sod Polystyrene Sulf 15 gm/60 ml Susp PO ONE (12:50)
--- NOTE | 2017-09-27 13:34 | PN ---
DATE: SUBJECTIVE: I saw him comfortably in bed. He is sleeping well. He is eating a little bit. MEDICATIONS: He is on hydralazine, Crestor, Ecotrin, Enulose, Flomax, heparin, Kayexalate, Lasix, Lyrica, MiraLAX, Norvasc, NovoLog coverage, Protonix, Glucotrol, Senokot, sodium bicarb, and Tylenol. He was on dextrose IV, I stopped it. LABORATORY DATA: I saw his blood sugars over the past, I guess 10 hours of 261, 257, 206, and 235. Sodium 136, potassium 5.7. He might need some Kayexalate. I am waiting for this morning's labs to come back. BUN 25, creatinine 1.7, hopefully that will continue to improve, sugars 196, calcium is 8.2. White count is 4.5, hemoglobin is 9.1, and platelets of 368. I am checking labs today and tomorrow. I stopped dextrose and we put him on one-half normal saline to help the kidney function. Get him out of bed to chair. PLAN: I will continue with treatment and care as per Endocrinology. Here for low blood sugars, acute kidney injury, renal insufficiency, ileus, constipation, and hypertension. Zhoaib Morgan DO
--- NOTE | 2017-09-27 16:18 | CP.PCM.PN ---
Subjective - Date & Time of Evaluation Date of Evaluation: 09/27/17 Time of Evaluation: 16:17 - Subjective Subjective: Nephrology Consultation Note: Assessment: stable Acute Kidney Injury (N17.9) improved constipation Uncontrolled diabetes mellitus with hypoglycemia Diabetic chronic Kidney Disease (E11.22) Hypertensive Chronic Kidney Disease (I12.9) Chronic Kidney Disease (N18.3) Stage 3 with 580 mg proteinuria (R80.9) likely due to DM Anemia (D64.9), Vit D def with Secondary Hyperparathyroidism (E21.1), HTN (I12.9 ) BPH, diabetic neuropathy, chronic pancreatitis on opiates gastric ulcer, hx of etoh and smoking in past Plan No acute need for renal replacement therapy at this time. Hypertension control with meds as ordered. Patient not on ACEI/ARB due to KHALIDA Tendency and hyperkalemia. resume hydralazine, and norvasc. as per outpt list, pt not on coreg. considering his hypoglycemic episodes, will try to avoid Beta- blockers agree with dose of kayexylate today Monitor Input/Output, daily weights and renal function with basic metabolic panel Patient supposed to be on [place] at home every day, continue at d/c resume lyrica for diabetic neuropathy At home pt on sodium bicarbonate 650 mg 2 times a day, iron 325 mg 3 times a day , multivitamin once a day, Flomax 0.4 mg once a day, calcitriol 0.25 g once a day: resume continue with PPI as pt with hx of gastric ulcer endocrine eval requested Dose meds/antibiotics for reduced GFR. Avoid fleets enema/magnesium based laxatives. Avoid nephrotoxins/NSAIDs/ iodinated contrast (unless needed emergently) Glycemic control Further work up/management as per primary team Thanks for allowing me to participate in care of your patient. Will follow patient with you. Please call if any Qs. had d/w team Dr Juan Diego Light Office: [phone] reason for consult: KHALIDA, CKD HPI:Pt is a 71 M with hx of uncontrolled diabetes Mellitus ( 30 years) [ endocrine Dr Matson as outpt] with retinopathy, hypertension (15-20 years), CKD 3 (baseline cr 2.0 range), s/p Right total hip replacement, gout, chronic pancreatitis on chronic opiates as morphine, gastric ulcer (EGD jan 2017) with hiatal hernia Presented to the hospital With AMS and hypoglycemia. Renal consult for kidney disease management pt has uncontrolled DM with sugars ranging from 20 to 500+ he had recent hospitalizations for DKA/hyperglycemia and hypoglycemia ROS: feels better now. denies CP/SOB. resolved nausea and upper abdomen pain. rest all other negative except as mentioned in HPI Physical Examination: General Appearance: in no acute respiratory distress, co-operative . better appearing Vitals reviewed and noted as below Head; Atraumatic, normocephalic ENT: no ulcers no thrush. Tongue is midline. Oropharynx: no rash or ulcers. EYES: Pupils are equal, round and reactive to light accommodation. Eye muscles and extraocular movement intact. Sclera is anicteric. Neck; supple no lymphadenopathy, no thyromegaly or bruit Lungs: Normal respiratory rate/effort. Breath sounds bilateral equal and clear Heart: Normal rate. s1s2 normal. No rub or gallop. Extremities: 1+ edema. No varicose veins Neurological: Patient is AO x 3 no focal deficit Skin: Warm and dry. Normal turgor. No rash. Palpitation: Normal elasticity for age Abdomen: Abdomen is soft. Bowel sounds +. There is no abdominal tenderness, no guarding/rigidity no organomegaly Psych: normal affect/mood and good insight MSK: no joint tenderness or swelling. Digits and nails normal, no deformity : kidney or bladder not palpable Labs/imaging reviewed. Past medical history, past surgical history, family history, social history, allergy reviewed and noted as below Family hx: no hx of CKD. Rest non-contributory Work up: jan 2017: a1c 8.5 urine proc/cr 724 Ua 30 pr no blood 04/04/2017: Na 140 K 6 Bicarb 17 BUN/Cr 35/2.2 (GFR 38%) PTH 881 Vit D <13 Hb 11.3 06/11/2017: SPEP neg [place]/lambda ratio normal although faint free lambda in JANI albumin 4.2 TSH 2.3 A1c 9.6% LDL 41 Hb 12.1 9% Ferritin 28 folate >20 B12 >1000 PTH 902 Phos 4.7 Vit D <13 Na 135 K 5.5 Bicarb 19 Ca 9.2 BUN/Cr 40/2.0 (GFR 42) UA 30 protein 500 glucose no blood pr/cr ratio 587 mg/gr creat as outpt leg art doppler/JENNYFER: WNL, renal sono 7 mm cyst and aortic sono: no aneursym Objective - Vital Signs/Intake and Output Vital Signs (last 24 hours): Temp Pulse Resp BP Pulse Ox 98.1 F 76 20 152/81 H 100 09/27/17 09:00 09/27/17 09:00 09/27/17 09:00 09/27/17 11:28 09/27/17 09:00 Intake and Output: 09/27/17 09/27/17 06:59 18:59 Intake Total 350 Balance 350 - Medications Medications: Current Medications Amlodipine Besylate (Norvasc) 10 mg PO DAILY [facility] Last Admin: 09/27/17 11:28 Dose: 10 mg Aspirin (Ecotrin) 81 mg PO DAILY [facility] Last Admin: 09/27/17 11:27 Dose: 81 mg Calcitriol (Rocaltrol) 0.25 mcg PO DAILY [facility] Last Admin: 09/27/17 10:00 Dose: 0.25 mcg Furosemide (Lasix) 40 mg PO BID [facility] Last Admin: 09/27/17 11:28 Dose: 40 mg Glipizide (Glucotrol) 5 mg PO BIDAC [facility] Heparin Sodium (Porcine) (Heparin) 5,000 units SC Q12 [facility] Last Admin: 09/27/17 11:28 Dose: 5,000 units Hydralazine HCl (Apresoline) 100 mg PO TID [facility] Last Admin: 09/27/17 14:49 Dose: 100 mg Sodium Chloride (Sodium Chloride 0.45%) 1,000 mls @ 40 mls/hr IV .Q24H [facility] Last Admin: 09/27/17 10:00 Dose: Not Given Insulin Aspart (Novolog) 0 unit SC ACHS [facility] Last Admin: 09/27/17 12:28 Dose: 6 unit Lactulose (Enulose) 20 gm PO BID PRN PRN Reason: Constipation Lactulose (Enulose) 20 gm PO HS [facility] Last Admin: 09/26/17 21:38 Dose: 20 gm Pantoprazole Sodium (Protonix Ec Tab) 40 mg PO DAILY [facility] Last Admin: 09/27/17 11:28 Dose: 40 mg Polyethylene Glycol (Miralax) 17 gm PO BID [facility] Last Admin: 09/27/17 11:29 Dose: Not Given Pregabalin (Lyrica) 75 mg PO BID [facility] Last Admin: 09/27/17 11:28 Dose: 75 mg Rosuvastatin Calcium (Crestor) 5 mg PO HS [facility] Last Admin: 09/26/17 21:38 Dose: 5 mg Senna/Docusate Sodium (Senokot S 50 Mg-8.6 Mg) 1 tab PO BID PRN PRN Reason: Constipation Last Admin: 09/25/17 09:31 Dose: 1 tab Sodium Bicarbonate (Sodium Bicarbonate Tab) 650 mg PO BID [facility] Last Admin: 09/27/17 11:27 Dose: 650 mg Tamsulosin HCl (Flomax) 0.4 mg PO DAILY [facility] Last Admin: 09/27/17 11:28 Dose: 0.4 mg - Labs Labs: 09/27/17 11:19 09/27/17 11:19
[2017-09-27 17:29] VITALS: PULSE 83
[2017-09-28 01:55] VITALS: BP 154/79; TEMP 98.6; O2SAT 100
[2017-09-28] MEDS ORDERED: (Novolog) Insulin Aspart, Recombinant 100 u/ml 10 ml vial SC ONE (03:28)
[2017-09-28 07:58] LABS: HEMOGLOBIN 9.9 g/dL (12.0-18.0); MEAN CELL VOLUME 80.7 fL (80.0-94.0); MEAN CORPUSCULAR HEMOGLOBIN 27.1 pg (27.0-31.0); MEAN CORPUSCULAR HGB CONC 33.6 g/dL (33.0-37.0); MEAN PLATELET VOLUME 7.6 fL (7.2-11.7); RBC 3.66 Mil/uL (4.40-5.90); RED CELL DISTRIBUTION WIDTH 16.9 % (11.5-14.5); WHITE BLOOD COUNT 6.1 K/uL (4.8-10.8)
[2017-09-28 08:18] LABS: ALBUMIN 3.1 g/dL (3.5-5.0); CALCIUM 8.8 mg/dl (8.6-10.4)
[2017-09-28] MEDS: (Novolog) Insulin Aspart, Recombinant 100 u/ml 10 ml vial SC SCH ×2 (08:19→11:30)
[2017-09-28] MEDS: Sodium Chloride 0.45% 1,000 ML IV SCH (09:00)
[2017-09-28] MEDS: Pantoprazole 40 mg EC Tab PO SCH (10:47)
[2017-09-28] MEDS: POLYETHYLENE GLYCOL 3350 17 GM/Dose PACKET PO SCH (11:44)
[2017-09-28] MEDS ORDERED: Pneumococcal 23-Valent Vaccine IM ONE (13:09)
--- NOTE | 2017-09-28 13:37 | DS ---
HISTORY OF PRESENT ILLNESS: He is doing quite well. He is doing better. He is feeling well. No chest pain, no shortness of breath or lightheadedness. No abdominal pain. He is eating well. PHYSICAL EXAMINATION: VITAL SIGNS: Temperature 98.6, 83 pulse, 154/79 blood pressure, 20 respiratory rate, 100% O2 sat on room air. HEAD: Head is atraumatic, normocephalic. HEART: Regular rate. LUNGS: Clear to auscultation. ABDOMEN: Soft, nontender. Positive bowel sounds. EXTREMITIES: No edema. He is currently on Apresoline, Crestor, Ecotrin, Enulose, Flomax, Lasix, Lyrica, MiraLax, Norvasc, NovoLog, Protonix, Rocaltrol, Senokot and IV fluids. Except for the IV fluids, basic medicines for him. The search optimization analyst placed him on glyburide 5 mg twice a day. I will put him on that. He used to be on insulin and other medications. I am not giving him anything else. LABORATORY DATA: His last labs, he has a 6.1 white count, 9.9 hemoglobin, 29.6 hematocrit, with 401 platelets. He has 138 sodium, potassium 4.1. His last blood sugars were 251 and 256. The numbers are 250s or less, so he will be discharged after lunch today. glyburide. He will be followed up in the office and he should follow up with the search optimization analyst. I do not see any notes from the search optimization analyst in the chart. He should follow up with the search optimization analyst Dr. Denise and also Dr. Morgan in two weeks with this numbers. I will write a prescription for Glyburide 5 mg twice a day. No other diabetic medication, plus his other medications which he already has at home and follow up. Edenilson Morgan DO MTDD
== END 2017-09-28 14:35 | disposition home or self-care (01) | DRG 638 ==
LOC: C.ER 00:56 → C.9E 04:08 → C.3T 15:33
PROVIDERS: ADMIT Family Medicine; ATTEND Family Medicine
DX: E11.649 Type 2 diabetes mellitus with hypoglycemia without coma (principal); I13.0 Hypertensive heart and chronic kidney disease with heart failure and stage 1 through stage 4 chronic kidney disease, or unspecified chronic kidney disease; K86.1 Other chronic pancreatitis; K56.7 Ileus, unspecified; E11.22 Type 2 diabetes mellitus with diabetic chronic kidney disease; E11.40 Type 2 diabetes mellitus with diabetic neuropathy, unspecified; E78.00 Pure hypercholesterolemia, unspecified; I50.9 Heart failure, unspecified; N17.9 Acute kidney failure, unspecified; N18.3 Chronic kidney disease, stage 3 (moderate); N25.81 Secondary hyperparathyroidism of renal origin; K59.09 Other constipation; Z95.0 Presence of cardiac pacemaker; R41.82 Altered mental status, unspecified; E11.65 Type 2 diabetes mellitus with hyperglycemia; E55.9 Vitamin D deficiency, unspecified; M10.9 Gout, unspecified; Z87.891 Personal history of nicotine dependence; E87.5 Hyperkalemia

== ENCOUNTER 2017-10-05 22:55 | Inpatient (IN) | payer MEDICARE ==
[2017-10-05 22:56] VITALS: BMI 21.2
[2017-10-05 23:34] LABS: EOS # 0.1 K/uL (0.0-0.7); EOS % 3.3 % (0.0-4.0); HEMOGLOBIN 9.6 g/dL (12.0-18.0); LYMPH # 0.4 K/uL (1.0-4.3); MONO # 0.3 K/uL (0.0-0.8); NEUT # 3.5 K/uL (1.8-7.0); NEUT % 78.8 % (50.0-75.0); RBC 3.63 Mil/uL (4.40-5.90); WHITE BLOOD COUNT 4.4 K/uL (4.8-10.8)
[2017-10-05 23:38] LABS: BASO % 0.7 % (0.0-2.0); LYMPH % 9.9 % (20.0-40.0); MEAN CELL VOLUME 85.9 fL (80.0-94.0); MEAN CORPUSCULAR HEMOGLOBIN 26.4 pg (27.0-31.0); MEAN CORPUSCULAR HGB CONC 30.7 g/dL (33.0-37.0); MONO % 7.3 % (0.0-10.0); PLATELET COUNT 200 K/uL (130-400); RED CELL DISTRIBUTION WIDTH 17.8 % (11.5-14.5)
[2017-10-05 23:41] LABS: INR 1.2; PROTHROMBIN TIME 12.7 SECONDS (9.7-12.2)
--- NOTE | 2017-10-05 23:44 | C.PDOC ---
History Of Present Illness 72 y/o male with known Hx of IDDM was released 1 week ago after admission for poor controlled diabetes. Patient now presents with complaints of tremors associated with poor balance. Patient reports getting spasms in his muscles that effect his ability to walk. Patient states spasms occur randomly and effects both his arms and legs. Denies headache, focal weakness, or difficulty speaking. He states spasms interfere with his ability to walk and he fell today then decided to seek medical attention. Patient has no other significant PMHx. Chief Complaint (Nursing): Medical Clearance History Per: Patient History/Exam Limitations: no limitations Onset/Duration Of Symptoms: Hrs Current Symptoms Are (Timing): Still Present Recent travel outside of the [place]: No Past Medical History Reviewed: Historical Data, Nursing Documentation, Vital Signs Vital Signs: Last Vital Signs Temp 98.2 F 10/06/17 03:35 Pulse 105 H 10/06/17 03:35 Resp 20 10/06/17 03:35 BP 102/66 10/06/17 03:35 Pulse Ox 100 10/06/17 03:35 - Medical History PMH: Anemia, Arthritis, CHF, Diabetes, Gastrointestinal Ulcer, HTN, Hypercholesterolemia, Pancreatitis (CHRONIC), Peripheral Edema, Chronic Kidney Disease Comment Only: Seizures (pt denies) Surgical History: Endoscopy - [facility] Procedures FLORESITA ING HRN REP-GRFT NOS (05/04/14) INSERTION OF INFUSION DEV INTO R FEMOR VEIN, PERC APPROACH (09/15/17) INSERTION OF INFUSION DEVICE INTO UPPER VEIN, PERC APPROACH (09/25/17) INTRODUCE OF OTH THERAP SUBST INTO RESP TRACT, VIA OPENING (08/22/17) Family History: States: No Known Family Hx - Social History Hx Tobacco Use: No Hx Alcohol Use: Yes Hx Substance Use: No - Immunization History Hx Tetanus Toxoid Vaccination: No Hx Influenza Vaccination: Yes Hx Pneumococcal Vaccination: No Review Of Systems Constitutional: Positive for: Other (Denies Hx of alcohol use, drug use or seizure disorder). Negative for: Fever, Chills Cardiovascular: Negative for: Chest Pain Respiratory: Negative for: Cough, Shortness of Breath Gastrointestinal: Negative for: Nausea, Vomiting, Abdominal Pain, Diarrhea, Constipation Musculoskeletal: Positive for: Other (Muscle spasms ) Skin: Negative for: Rash Neurological: Negative for: Weakness, Numbness Physical Exam - Physical Exam Appears: Well, Non-toxic, No Acute Distress, Other (Comfortable ) Skin: Warm, Dry Head: Atraumatic, Normacephalic Eye(s): bilateral: Normal Inspection, PERRL, EOMI Ear(s): Bilateral: Normal Nose: Normal, No Epistaxis, No Deformity Oral Mucosa: Moist Throat: Normal, No Erythema, No Exudate, No Drooling Neck: Supple Chest: Symmetrical, No Tenderness Cardiovascular: Rhythm Regular Respiratory: Normal Breath Sounds, No Decreased Breath Sounds, No Rales, No Rhonchi, No Wheezing Gastrointestinal/Abdominal: Soft, No Tenderness, No Distention Extremity: Normal ROM, No Tenderness, No Pedal Edema, No Deformity, Other ( fasciculations of both hands; random spasms of muscles in both upper arms and legs ) Extremity: Bilateral: Normal Color And Temperature, Normal ROM Pulses: Left Dorsalis Pedis: Normal, Right Dorsalis Pedis: Normal Neurological/Psych: Oriented x3, Normal Speech, Normal Cognition, Normal Cranial Nerves, Normal Motor, Normal Sensation, Other (No focal deficits ) Gait: Steady ED Course And Treatment - Laboratory Results Result Diagrams: 10/05/17 23:28 10/05/17 23:28 O2 Sat by Pulse Oximetry: 99 (RA) Pulse Ox Interpretation: Normal - CT Scan/US CT Head Other Rad Studies (CT/US): Read By Radiologist, Radiology Report Reviewed CT/US Interpretation: EXAM: CT Head Without Intravenous Contrast. CLINICAL HISTORY: 72 years old, male; Pain; Headache and other: Tremors; Patient HX: 4-18 images sent. TECHNIQUE: Axial computed tomography images of the head/ brain without intravenous contrast. All CT scans at. this facility use one or more dose reduction techniques, viz.: automated exposure control; ma/kV. adjustment per patient size (including targeted exams where dose is matched to indication; i.e. head);. or iterative reconstruction technique. 364 images are submitted. Axial images are submitted in brain. and bone windows. Coronal and sagittal reformatted images were created and reviewed. Axial reformatted images were created and reviewed. COMPARISON: No relevant prior studies available. FINDINGS: Brain: Cerebral and cerebellar volume loss. Patchy hypodensity is seen in the periventricular and. subcortical white matter. No hemorrhage. Ventricles: Ventriculomegaly. Bones/joints: Unremarkable. No acute fracture. Soft tissues: Nonspecific facial frontal and left parietal scalp calcifications. Vasculature: Vascular calcifications. Sinuses: Near complete opacification of right frontal sinus. Mastoid air cells: Unremarkable. No mastoid effusion. IMPRESSION: No evidence of an acute intracranial hemorrhage, midline shift or mass effect is identified. Medical Decision Making Medical Decision Making: Impression: - New onset muscle spasms - Electrolyte abnormalities Ordered Head CT and blood work - Will check electrolytes - Reassess 01:07AM: - Spoke with assembler installer general chief fishery division Anita Bursn He will be down to evaluate patient. - Contacted Dr. Zohaib Morgan 3 times with no call back. - Patient admitted to [facility] Disposition - Disposition Disposition: HOSPITALIZED Disposition Time: 04:15 Condition: CRITICAL - Clinical Impression Clinical Impression: Hyperkalemia, Acute on chronic renal insufficiency, Hyperosmolar non-ketotic state in patient with type 2 diabetes mellitus - Scribe Statement The provider has reviewed the documentation as recorded by the La Nenaibmegan Polacno All medical record entries made by the Scribmegan were at my direction and personally dictated by me. I have reviewed the chart and agree that the record accurately reflects my personal performance of the history, physical exam, medical decision making, and the department course for this patient. I have also personally directed, reviewed, and agree with the discharge instructions and disposition.
--- NOTE | 2017-10-05 23:46 | C.PDOC ---
Chief Complaint (Nursing): Medical Clearance Past Medical History Vital Signs: Last Vital Signs Temp 98.2 F 10/05/17 23:08 Pulse 93 H 10/05/17 23:08 Resp 14 10/05/17 23:08 BP 167/83 H 10/05/17 23:08 Pulse Ox 99 10/05/17 23:08 - Medical History PMH: Anemia, Arthritis, CHF, Diabetes, Gastrointestinal Ulcer, HTN, Hypercholesterolemia, Pancreatitis (CHRONIC), Peripheral Edema, Chronic Kidney Disease Comment Only: Seizures (pt denies) Surgical History: Endoscopy Denies: Pacemaker - [facility] Procedures FLORESITA ING HRN REP-GRFT NOS (05/04/14) INSERTION OF INFUSION DEV INTO R FEMOR VEIN, PERC APPROACH (09/15/17) INSERTION OF INFUSION DEVICE INTO UPPER VEIN, PERC APPROACH (09/25/17) INTRODUCE OF OTH THERAP SUBST INTO RESP TRACT, VIA OPENING (08/22/17) - Social History Hx Tobacco Use: No Hx Alcohol Use: Yes Hx Substance Use: No - Immunization History Hx Tetanus Toxoid Vaccination: No Hx Influenza Vaccination: Yes Hx Pneumococcal Vaccination: No ED Course And Treatment - Laboratory Results Result Diagrams: 10/05/17 23:28 O2 Sat by Pulse Oximetry: 99 Disposition - Disposition
[2017-10-05 23:59] LABS: EOSINOPHIL 6 % (0-4); LYMPHOCYTE 14 % (20-40); MONOCYTE 4 % (0-10); NEUTROPHIL 74 % (50-75); PLATELET ESTIMATE NORMAL (NORMAL); REACTIVE LYMPHOCYTES 2 % (0-0); TOTAL CELLS COUNTED 100
[2017-10-06 00:02] LABS: ALBUMIN 3.5 g/dL (3.5-5.0); CALCIUM 8.7 mg/dl (8.6-10.4)
[2017-10-06] MEDS ORDERED: Sodium Chloride 0.9% 1,000 ML IV ONE (00:29)
[2017-10-06] MEDS ORDERED: Sodium Bicarbonate (8.4%) 50 Meq Syringe IVP ONE (00:30)
[2017-10-06] MEDS ORDERED: (Novolin R) Insulin Human Regular 100 units/ml vial IV STA (00:30)
[2017-10-06] MEDS ORDERED: Calcium Chloride 1000 mg/10 ml Syringe IV ONE (00:31)
[2017-10-06] MEDS ORDERED: (Novolin R) Insulin Human Regular 100 units/ml vial ONE ×2 (00:38→02:08)
[2017-10-06] MEDS ORDERED: Sodium Bicarbonate (8.4%) 50 Meq Syringe ONE (00:38)
[2017-10-06] MEDS ORDERED: Insulin Human Regular 100 UNIT in Sodium Chloride 0.9% 99 ML IV SCH (00:45)
[2017-10-06 00:58] LABS: ABG ALLEN TEST POS; ARTERIAL BLOOD GAS HCO3 19.4 mmol/L (21-28); ARTERIAL BLOOD GAS HEMOGLOBIN 8.9 g/dL (11.7-17.4); ARTERIAL BLOOD GAS O2 SAT 95.2 % (95-98); ARTERIAL BLOOD GAS PCO2 38 mm/Hg (35-45); ARTERIAL BLOOD GAS PO2 74 mm/Hg (80-100); ARTERIAL BLOOD GAS TCO2 19.9 mmol/L (22-28)
--- NOTE | 2017-10-06 01:34 | CT ---
EXAM: CT Head Without Intravenous Contrast CLINICAL HISTORY: 72 years old, male; Pain; Headache and other: Tremors; Patient HX: 428-18 images sent TECHNIQUE: Axial computed tomography images of the head/brain without intravenous contrast. All CT scans at this facility use one or more dose reduction techniques, viz.: automated exposure control; ma/kV adjustment per patient size (including targeted exams where dose is matched to indication; i.e. head); or iterative reconstruction technique. 364 images are submitted. Axial images are submitted in brain and bone windows. Coronal and sagittal reformatted images were created and reviewed. Axial reformatted images were created and reviewed. COMPARISON: No relevant prior studies available. FINDINGS: Brain: Cerebral and cerebellar volume loss. Patchy hypodensity is seen in the periventricular and subcortical white matter. No hemorrhage. Ventricles: Ventriculomegaly. Bones/joints: Unremarkable. No acute fracture. Soft tissues: Nonspecific facial frontal and left parietal scalp calcifications. Vasculature: Vascular calcifications. Sinuses: Near complete opacification of right frontal sinus. Mastoid air cells: Unremarkable. No mastoid effusion. IMPRESSION: No evidence of an acute intracranial hemorrhage, midline shift or mass effect is identified.
[2017-10-06] MEDS ORDERED: (Lantus) Insulin Glargine, Recombinant SC ONE (02:00)
[2017-10-06] MEDS: (Novolog) Insulin Aspart, Recombinant 100 u/ml 10 ml vial SC SCH ×4 (02:12→21:32)
--- NOTE | 2017-10-06 02:20 | CP.PCM.CON ---
<Carlita Orozco - Last Filed: 10/06/17 05:08> Meds Allergies/Adverse Reactions: Allergies Allergy/AdvReac Type Severity Reaction Status Date / Time No Known Allergies Allergy Verified 10/05/17 23:14 - Medications Medications: Current Medications Calcitriol (Rocaltrol) 0.5 mcg PO DAILY [facility] Insulin Human Regular 100 unit (/ Sodium Chloride) 100 mls @ 2 mls/hr IV .Q24H [facility] Insulin Aspart (Novolog) 0 unit SC Q4H [facility]ELINA PRN Reason: Protocol Last Admin: 10/06/17 02:12 Dose: 10 unit Sodium Bicarbonate (Sodium Bicarbonate Tab) 1,300 mg PO Q6 [facility] Results - Vital Signs Recent Vital Signs: Last Vital Signs Temp 97.2 F L 10/06/17 04:37 Pulse 74 10/06/17 04:37 Resp 20 10/06/17 04:37 BP 110/63 10/06/17 04:37 Pulse Ox 100 10/06/17 04:37 - Labs Result Diagrams: 10/05/17 23:28 10/05/17 23:28 Labs: Laboratory Results - last 24 hr 10/05/17 10/05/17 10/05/17 23:28 23:28 23:28 WBC 4.4 L RBC 3.63 L Hgb 9.6 L Hct 31.2 L MCV 85.9 D MCH 26.4 L MCHC 30.7 L RDW 17.8 H Plt Count 200 D MPV 9.0 Neut % (Auto) 78.8 H Lymph % (Auto) 9.9 L [place] % (Auto) 7.3 Eos % (Auto) 3.3 Baso % (Auto) 0.7 Neut # (Auto) 3.5 Lymph # (Auto) 0.4 L [place] # (Auto) 0.3 Eos # (Auto) 0.1 Baso # (Auto) 0.0 Neutrophils % (Manual) 74 Lymphocytes % (Manual) 14 L Reactive Lymphs % 2 H Monocytes % (Manual) 4 Eosinophils % (Manual) 6 H Platelet Estimate Normal PT 12.7 H INR 1.2 APTT 33 Puncture Site pCO2 pO2 HCO3 ABG pH ABG Total CO2 ABG O2 Saturation ABG Base Excess ABG Hemoglobin ABG Carboxyhemoglobin POC ABG HHb (Measured) ABG Methemoglobin Americo Test A-a O2 Difference Respiratory Index Hgb O2 Saturation Liter Flow FiO2 Sodium 133 Potassium 6.2 H* D Chloride 99 Carbon Dioxide 14 L Anion Gap 26 H BUN 39 H Creatinine 2.5 H Est GFR ( Amer) 31 Est GFR (Non-Af Amer) 26 POC Glucose (mg/dL) Random Glucose 884 H* D Calcium 8.7 Phosphorus Magnesium 1.6 Total Bilirubin 0.6 AST 13 L D ALT 19 L D Alkaline Phosphatase 199 H D Total Protein 6.9 Albumin 3.5 Globulin 3.5 Albumin/Globulin Ratio 1.0 Urine Color Urine Clarity Urine pH Ur Specific [place] Urine Protein Urine Glucose (UA) Urine Ketones Urine Blood Urine Nitrate Urine Bilirubin Urine Urobilinogen Ur Leukocyte Esterase Urine WBC (Auto) Urine RBC (Auto) Ur Squamous Epith Cells Urine Bacteria Urine Yeast (Budding) Urine Opiates Screen Urine Methadone Screen Ur Barbiturates Screen Ur Phencyclidine Scrn Ur Amphetamines Screen U Benzodiazepines Scrn U Oth Cocaine Metabols U Cannabinoids Screen B-Hydroxybutyrate 10/06/17 10/06/17 10/06/17 00:30 01:46 01:49 WBC RBC Hgb Hct MCV MCH MCHC RDW Plt Count MPV Neut % (Auto) Lymph % (Auto) [place] % (Auto) Eos % (Auto) Baso % (Auto) Neut # (Auto) Lymph # (Auto) [place] # (Auto) Eos # (Auto) Baso # (Auto) Neutrophils % (Manual) Lymphocytes % (Manual) Reactive Lymphs % Monocytes % (Manual) Eosinophils % (Manual) Platelet Estimate PT INR APTT Puncture Site R rad pCO2 38 pO2 74 L HCO3 19.4 L ABG pH 7.30 L ABG Total CO2 19.9 L ABG O2 Saturation 95.2 ABG Base Excess -7.1 L ABG Hemoglobin 8.9 L ABG Carboxyhemoglobin 0.4 L POC ABG HHb (Measured) 4.8 ABG Methemoglobin 0.3 Americo Test Pos A-a O2 Difference 28.0 Respiratory Index 0.4 Hgb O2 Saturation 94.6 L Liter Flow 0 FiO2 21.0 Sodium Potassium Chloride Carbon Dioxide Anion Gap BUN Creatinine Est GFR ( Amer) Est GFR (Non-Af Amer) POC Glucose (mg/dL) 461 H* Random Glucose Calcium Phosphorus Magnesium Total Bilirubin AST ALT Alkaline Phosphatase Total Protein Albumin Globulin Albumin/Globulin Ratio Urine Color Urine Clarity Urine pH Ur Specific [place] Urine Protein Urine Glucose (UA) Urine Ketones Urine Blood Urine Nitrate Urine Bilirubin Urine Urobilinogen Ur Leukocyte Esterase Urine WBC (Auto) Urine RBC (Auto) Ur Squamous Epith Cells Urine Bacteria Urine Yeast (Budding) Urine Opiates Screen Urine Methadone Screen Ur Barbiturates Screen Ur Phencyclidine Scrn Ur Amphetamines Screen U Benzodiazepines Scrn U Oth Cocaine Metabols U Cannabinoids Screen B-Hydroxybutyrate 2.83 H 10/06/17 10/06/17 10/06/17 02:18 03:08 03:09 WBC RBC Hgb Hct MCV MCH MCHC RDW Plt Count MPV Neut % (Auto) Lymph % (Auto) [place] % (Auto) Eos % (Auto) Baso % (Auto) Neut # (Auto) Lymph # (Auto) [place] # (Auto) Eos # (Auto) Baso # (Auto) Neutrophils % (Manual) Lymphocytes % (Manual) Reactive Lymphs % Monocytes % (Manual) Eosinophils % (Manual) Platelet Estimate PT INR APTT Puncture Site pCO2 pO2 HCO3 ABG pH ABG Total CO2 ABG O2 Saturation ABG Base Excess ABG Hemoglobin ABG Carboxyhemoglobin POC ABG HHb (Measured) ABG Methemoglobin Americo Test A-a O2 Difference Respiratory Index Hgb O2 Saturation Liter Flow FiO2 Sodium Potassium Chloride Carbon Dioxide Anion Gap BUN Creatinine Est GFR ( Amer) Est GFR (Non-Af Amer) POC Glucose (mg/dL) Random Glucose Calcium Phosphorus 5.7 H Magnesium Total Bilirubin AST ALT Alkaline Phosphatase Total Protein Albumin Globulin Albumin/Globulin Ratio Urine Color Yellow Urine Clarity Hazy Urine pH 5.0 Ur Specific [place] 1.017 Urine Protein 2+ H Urine Glucose (UA) 3+ H Urine Ketones Negative Urine Blood 2+ H Urine Nitrate Negative Urine Bilirubin Negative Urine Urobilinogen Normal Ur Leukocyte Esterase Neg Urine WBC (Auto) 6 H Urine RBC (Auto) 14 H Ur Squamous Epith Cells < 1 Urine Bacteria Rare Urine Yeast (Budding) Occ H Urine Opiates Screen Positive H Urine Methadone Screen Negative Ur Barbiturates Screen Negative Ur Phencyclidine Scrn Negative Ur Amphetamines Screen Negative U Benzodiazepines Scrn Negative U Oth Cocaine Metabols Negative U Cannabinoids Screen Negative B-Hydroxybutyrate - EKG Data EKG comments: - Normal sinus rhythm at 93bpm - No ectopy - No interval abnormalities - ST segment, mild peaking of P-Waves V3-V6 <Sandy,[place] M - Last Filed: 10/06/17 06:41> History of Present Illness - History of Present Illness History of Present Illness: 72 y/o male well known to [facility] with multiple previous admissions for hyperglycemia/DKA and hypoglycemia with hyperpotassemia. Patient presents today with c/o muscle twitching and weakness. Patient denies any chest pain, denies any headaches, -Admits to not taking his medication -lantus -denies any fevers, denies any abdominal pain Review of Systems - Review of Systems Review of Systems: as per HPI Past Patient History - Infectious Disease Hx of Infectious Diseases: None - Tetanus Immunizations Tetanus Immunization: Unknown - Past Medical History & Family History Past Medical History?: Yes - Past Social History Smoking Status: Former Smoker - CARDIAC Hx Congestive Heart Failure: Yes Hx Hypercholesterolemia: Yes Hx Hypertension: Yes Hx Peripheral Edema: Yes - PULMONARY Hx Respiratory Disorders: Yes (USED TO SMOKE 3 PPD X 35 YRS.QUIT 1989) - NEUROLOGICAL Hx Seizures: (pt denies) - HEENT Hx HEENT Problems: Yes Hx Cataracts: Yes (BILATERAL) - RENAL Hx Chronic Kidney Disease: Yes - ENDOCRINE/METABOLIC Hx Diabetes Mellitus Type 2: Yes - HEMATOLOGICAL/ONCOLOGICAL Hx Anemia: Yes - INTEGUMENTARY Hx Dermatological Problems: No - MUSCULOSKELETAL/RHEUMATOLOGICAL Hx Arthritis: Yes - GASTROINTESTINAL Hx Pancreatitis: Yes (CHRONIC) - GENITOURINARY/GYNECOLOGICAL Hx Genitourinary Disorders: Yes Hx Prostate Problems: Yes (R TURP for BPH) - PSYCHIATRIC Hx Substance Use: No - SURGICAL HISTORY Hx Arthroscopy: Yes (LEFT SHOULDER) Hx Cataract Extraction: Yes (LEFT EYE) Hx Joint Replacement: Yes (RIGHT HIP ) Hx Musculoskeletal Surgery: Yes Hx Orthopedic Surgery: Yes Other/Comment: hernia repair, left shoulder torn ligament - ANESTHESIA Hx Anesthesia: Yes Hx Anesthesia Reactions: No Hx Malignant Hyperthermia: No Meds - Medications Medications: Current Medications Calcitriol (Rocaltrol) 0.5 mcg PO DAILY [facility] Insulin Human Regular 100 unit (/ Sodium Chloride) 100 mls @ 2 mls/hr IV .Q24H [facility] Insulin Aspart (Novolog) 0 unit SC Q4H [facility] PRN Reason: Protocol Last Admin: 10/06/17 02:12 Dose: 10 unit Sodium Bicarbonate (Sodium Bicarbonate Tab) 1,300 mg PO Q6 [facility] Physical Exam - Head Exam Head Exam: ATRAUMATIC, NORMAL INSPECTION, NORMOCEPHALIC - Eye Exam Eye Exam: EOMI, PERRL Pupil Exam: PERRL - ENT Exam ENT Exam: Mucous Membranes Moist - Neck Exam Neck exam: Positive for: Normal Inspection - Respiratory Exam Respiratory Exam: Clear to Auscultation Bilateral, NORMAL BREATHING PATTERN - Cardiovascular Exam Cardiovascular Exam: REGULAR RHYTHM, +S1, +S2, Systolic Murmur - GI/Abdominal Exam GI & Abdominal Exam: Normal Bowel Sounds, Soft. absent: Rebound, Rigid - Extremities Exam Extremities exam: Positive for: pedal edema Results - Vital Signs Recent Vital Signs: Last Vital Signs Temp 98.8 F 10/06/17 00:05 Pulse 90 10/06/17 00:05 Resp 20 10/06/17 00:05 BP 143/68 10/06/17 00:05 Pulse Ox 99 10/06/17 02:14 - Labs Result Diagrams: 10/05/17 23:28 10/06/17 05:15 Labs: Laboratory Results - last 24 hr 10/05/17 10/05/17 10/05/17 23:28 23:28 23:28 WBC 4.4 L RBC 3.63 L Hgb 9.6 L Hct 31.2 L MCV 85.9 D MCH 26.4 L MCHC 30.7 L RDW 17.8 H Plt Count 200 D MPV 9.0 Neut % (Auto) 78.8 H Lymph % (Auto) 9.9 L [place] % (Auto) 7.3 Eos % (Auto) 3.3 Baso % (Auto) 0.7 Neut # (Auto) 3.5 Lymph # (Auto) 0.4 L [place] # (Auto) 0.3 Eos # (Auto) 0.1 Baso # (Auto) 0.0 Neutrophils % (Manual) 74 Lymphocytes % (Manual) 14 L Reactive Lymphs % 2 H Monocytes % (Manual) 4 Eosinophils % (Manual) 6 H Platelet Estimate Normal PT 12.7 H INR 1.2 APTT 33 Puncture Site pCO2 pO2 HCO3 ABG pH ABG Total CO2 ABG O2 Saturation ABG Base Excess ABG Hemoglobin ABG Carboxyhemoglobin POC ABG HHb (Measured) ABG Methemoglobin Americo Test A-a O2 Difference Respiratory Index Hgb O2 Saturation Liter Flow FiO2 Sodium 133 Potassium 6.2 H* D Chloride 99 Carbon Dioxide 14 L Anion Gap 26 H BUN 39 H Creatinine 2.5 H Est GFR ( Amer) 31 Est GFR (Non-Af Amer) 26 POC Glucose (mg/dL) Random Glucose 884 H* D Calcium 8.7 Magnesium 1.6 Total Bilirubin 0.6 AST 13 L D ALT 19 L D Alkaline Phosphatase 199 H D Total Protein 6.9 Albumin 3.5 Globulin 3.5 Albumin/Globulin Ratio 1.0 10/06/17 10/06/17 00:30 01:46 WBC RBC Hgb Hct MCV MCH MCHC RDW Plt Count MPV Neut % (Auto) Lymph % (Auto) [place] % (Auto) Eos % (Auto) Baso % (Auto) Neut # (Auto) Lymph # (Auto) [place] # (Auto) Eos # (Auto) Baso # (Auto) Neutrophils % (Manual) Lymphocytes % (Manual) Reactive Lymphs % Monocytes % (Manual) Eosinophils % (Manual) Platelet Estimate PT INR APTT Puncture Site R rad pCO2 38 pO2 74 L HCO3 19.4 L ABG pH 7.30 L ABG Total CO2 19.9 L ABG O2 Saturation 95.2 ABG Base Excess -7.1 L ABG Hemoglobin 8.9 L ABG Carboxyhemoglobin 0.4 L POC ABG HHb (Measured) 4.8 ABG Methemoglobin 0.3 [place] Test Pos A-a O2 Difference 28.0 Respiratory Index 0.4 Hgb O2 Saturation 94.6 L Liter Flow 0 FiO2 21.0 Sodium Potassium Chloride Carbon Dioxide Anion Gap BUN Creatinine Est GFR ( Amer) Est GFR (Non-Af Amer) POC Glucose (mg/dL) 461 H* Random Glucose Calcium Magnesium Total Bilirubin AST ALT Alkaline Phosphatase Total Protein Albumin Globulin Albumin/Globulin Ratio Assessment & Plan - Assessment and Plan (Free Text) Assessment: Hyperglycemia/uncontrolled DM: check UA, ketone, BHB, restart home medication of lantus and ISS sliding scale, repeat cmp/mag/phos at 6AM -diastolic heart failure: previous documentatoin reveals patient atrisk of hyperpotassemia when place don acei, restart ccb and hydralazine and AV moi janene -hyperpotassemia: EKG reveals no peaked T waves -KHALIDA/CKD: bladder Us reveals retention, placed bledsoe, chek UA/urine lytes, nephrology follow up US kidneys -NPO -anion gap metabolic acidosis: restart home medications: bicarb/calcitriol, check ionized calcium -muscle fasciculations: possible 2nd acidosis, check ionized calcium -at risk of CAD: will benefit from DAPT, AV no josh blockers (not beta janene 2nd episode of hypoglycemia) -dvt ppx heparin SQ -PUD ppx protonix Patient remains hemodynamically stable. ICU bed/nurse not available, will attempt to improve electrolye imbalance in ER. -d/w Er physicain repeat Labs at 6AM -Addendum: AM labs reveal beta hydroxybutyrate normalized, anion gap closed -restart oral diet and ISS and lantus 20 units - - Date & Time Date: 10/06/17 Time: 02:25
[2017-10-06 02:38] LABS: BARBITURATES, UR NEGATIVE (NEGATIVE); BENZODIAZEPINES, UR NEGATIVE (NEGATIVE); PHENCYCLIDINE, UR NEGATIVE (NEGATIVE)
[2017-10-06 02:43] LABS: OPIATES, UR POSITIVE (NEGATIVE)
[2017-10-06 03:15] LABS: SQUAMOUS EPITHIAL < 1 /hpf (0-5); URINE BACTERIA RARE (<OCC); URINE BILIRUBIN NEGATIVE (NEGATIVE); URINE BLOOD 2+ (NEGATIVE); URINE CLARITY Hazy (Clear); URINE COLOR Yellow (YELLOW); URINE GLUCOSE (UA) 3+ mg/dL (Normal); URINE LEUKOCYTE ESTERASE NEG Leu/uL (Negative); URINE PROTEIN 2+ mg/dL (NEGATIVE); URINE UROBILINOGEN NORMAL mg/dL (0.2-1.0)
--- NOTE | 2017-10-06 03:17 | CP.PCM.HP ---
<Jewell Olivares - Last Filed: 10/06/17 03:12> History of Present Illness - History of Present Illness History of Present Illness: H&P: 72 year old male with past medical history of uncontrolled DM, HTN, recurrent pancreatitits, BPH, OA presented to hospital for LE weakness that began earlier yesterday. Patient states that he was at home laying in bed when he felt very weak and was unable to life both of his lower legs. Patient's called EMS and pt was brought in. Pt had CT of head done in ED which was negative for acute changes. Patient was noted to be hyperglycemic at 884. He was given his home insulin dose of Lantus 20 uints and Novolin 10 units which brought his blood glucose down to 461. Pt admits to taking his home emdications as prescribed. Currently, pt is resting comfortably. Denies having any upper and lower extremity weakness, numbness or tingling. He denies having any CP, abd pain, N/V/D/C, SOB, F/C, dysuria or increased urinary frequency. PMHx: hypertension, BPH, diabetes, renal failure, chronic pancreatitis, and arthritis PSurgHx: Right LEONIE, Left shoulder scope, B/L inguinal hernia repair (2013) Family Hx: denied Social Hx: Former smoker (quit in 1990) 3-4ppd x 35y, former drinker (quit in the ) Meds: patient unsure Allergies: NKDA Present on Admission - Present on Admission Any Indicators Present on Admission: No Review of Systems - Constitutional Constitutional: absent: Chills, Fever - EENT Eyes: absent: Blurred Vision, Change in Vision, Diplopia Nose/Mouth/Throat: absent: Nasal Congestion, Nasal Discharge, Sore Throat - Cardiovascular Cardiovascular: absent: Chest Pain, Dyspnea, Edema, Leg Edema, Lightheadedness - Respiratory Respiratory: absent: Cough, Dyspnea, Wheezing - Gastrointestinal Gastrointestinal: absent: Abdominal Pain, Bloating, Constipation, Diarrhea, Nausea, Vomiting - Genitourinary Genitourinary: absent: Dysuria, Urinary Frequency - Musculoskeletal Musculoskeletal: absent: Back Pain, Numbness - Integumentary Integumentary: absent: Acne, Lesions, Wounds - Neurological Neurological: Weakness. absent: Confusion, Disequilibrium, Frequent Falls, Headaches, Loss of Vision, Sensory Deficit, Syncope, Tingling - Psychiatric Psychiatric: absent: Anxiety, Depression Past Patient History - Infectious Disease Hx of Infectious Diseases: None - Tetanus Immunizations Tetanus Immunization: Unknown - Past Medical History & Family History Past Medical History?: Yes - Past Social History Smoking Status: Former Smoker Chewing Tobacco Use: No Cigar Use: No Alcohol: None Drugs: Denies Home Situation {Lives}: With Family - CARDIAC Hx Congestive Heart Failure: Yes Hx Hypercholesterolemia: Yes Hx Hypertension: Yes Hx Peripheral Edema: Yes - PULMONARY Hx Respiratory Disorders: Yes (USED TO SMOKE 3 PPD X 35 YRS.QUIT 1989) - NEUROLOGICAL Hx Seizures: (pt denies) - HEENT Hx HEENT Problems: Yes Hx Cataracts: Yes (BILATERAL) - RENAL Hx Chronic Kidney Disease: Yes - ENDOCRINE/METABOLIC Hx Diabetes Mellitus Type 2: Yes - HEMATOLOGICAL/ONCOLOGICAL Hx Anemia: Yes - INTEGUMENTARY Hx Dermatological Problems: No - MUSCULOSKELETAL/RHEUMATOLOGICAL Hx Arthritis: Yes - GASTROINTESTINAL Hx Pancreatitis: Yes (CHRONIC) - GENITOURINARY/GYNECOLOGICAL Hx Genitourinary Disorders: Yes Hx Prostate Problems: Yes (R TURP for BPH) - PSYCHIATRIC Hx Substance Use: No - SURGICAL HISTORY Hx Arthroscopy: Yes (LEFT SHOULDER) Hx Cataract Extraction: Yes (LEFT EYE) Hx Joint Replacement: Yes (RIGHT HIP ) Hx Musculoskeletal Surgery: Yes Hx Orthopedic Surgery: Yes Other/Comment: hernia repair, left shoulder torn ligament - ANESTHESIA Hx Anesthesia: Yes Hx Anesthesia Reactions: No Hx Malignant Hyperthermia: No Meds Allergies/Adverse Reactions: Allergies Allergy/AdvReac Type Severity Reaction Status Date / Time No Known Allergies Allergy Verified 10/05/17 23:14 Physical Exam - Constitutional Appears: Non-toxic, No Acute Distress - Head Exam Head Exam: ATRAUMATIC - ENT Exam ENT Exam: Mucous Membranes Moist - Respiratory Exam Respiratory Exam: Clear to Auscultation Bilateral. absent: Accessory Muscle Use , Rales, Rhonchi, Wheezes, Respiratory Distress - Cardiovascular Exam Cardiovascular Exam: REGULAR RHYTHM, +S1, +S2, Systolic Murmur. absent: Gallop , Irregular Rhythm, Rubs - GI/Abdominal Exam GI & Abdominal Exam: Normal Bowel Sounds, Soft. absent: Distended, Firm, Guarding, Rigid, Tenderness - Extremities Exam Extremities exam: Negative for: pedal edema, tenderness - Neurological Exam Neurological exam: Alert, CN II-XII Intact, Oriented x3 - Psychiatric Exam Psychiatric exam: Normal Affect, Normal Mood - Skin Skin Exam: Dry, Intact, Normal Color, Warm Results - Vital Signs Recent Vital Signs: Last Vital Signs Temp 98.3 F 10/06/17 02:27 Pulse 97 H 10/06/17 02:27 Resp 20 10/06/17 02:27 BP 156/77 H 10/06/17 02:27 Pulse Ox 100 10/06/17 02:27 - Labs Result Diagrams: 10/05/17 23:28 10/05/17 23:28 Labs: Laboratory Results - last 24 hr 10/05/17 10/05/17 10/05/17 23:28 23:28 23:28 WBC 4.4 L RBC 3.63 L Hgb 9.6 L Hct 31.2 L MCV 85.9 D MCH 26.4 L MCHC 30.7 L RDW 17.8 H Plt Count 200 D MPV 9.0 Neut % (Auto) 78.8 H Lymph % (Auto) 9.9 L [place] % (Auto) 7.3 Eos % (Auto) 3.3 Baso % (Auto) 0.7 Neut # (Auto) 3.5 Lymph # (Auto) 0.4 L [place] # (Auto) 0.3 Eos # (Auto) 0.1 Baso # (Auto) 0.0 Neutrophils % (Manual) 74 Lymphocytes % (Manual) 14 L Reactive Lymphs % 2 H Monocytes % (Manual) 4 Eosinophils % (Manual) 6 H Platelet Estimate Normal PT 12.7 H INR 1.2 APTT 33 Puncture Site pCO2 pO2 HCO3 ABG pH ABG Total CO2 ABG O2 Saturation ABG Base Excess ABG Hemoglobin ABG Carboxyhemoglobin POC ABG HHb (Measured) ABG Methemoglobin Americo Test A-a O2 Difference Respiratory Index Hgb O2 Saturation Liter Flow FiO2 Sodium 133 Potassium 6.2 H* D Chloride 99 Carbon Dioxide 14 L Anion Gap 26 H BUN 39 H Creatinine 2.5 H Est GFR ( Amer) 31 Est GFR (Non-Af Amer) 26 POC Glucose (mg/dL) Random Glucose 884 H* D Calcium 8.7 Magnesium 1.6 Total Bilirubin 0.6 AST 13 L D ALT 19 L D Alkaline Phosphatase 199 H D Total Protein 6.9 Albumin 3.5 Globulin 3.5 Albumin/Globulin Ratio 1.0 Urine Opiates Screen Urine Methadone Screen Ur Barbiturates Screen Ur Phencyclidine Scrn Ur Amphetamines Screen U Benzodiazepines Scrn U Oth Cocaine Metabols U Cannabinoids Screen B-Hydroxybutyrate 10/06/17 10/06/17 10/06/17 00:30 01:46 01:49 WBC RBC Hgb Hct MCV MCH MCHC RDW Plt Count MPV Neut % (Auto) Lymph % (Auto) [place] % (Auto) Eos % (Auto) Baso % (Auto) Neut # (Auto) Lymph # (Auto) [place] # (Auto) Eos # (Auto) Baso # (Auto) Neutrophils % (Manual) Lymphocytes % (Manual) Reactive Lymphs % Monocytes % (Manual) Eosinophils % (Manual) Platelet Estimate PT INR APTT Puncture Site R rad pCO2 38 pO2 74 L HCO3 19.4 L ABG pH 7.30 L ABG Total CO2 19.9 L ABG O2 Saturation 95.2 ABG Base Excess -7.1 L ABG Hemoglobin 8.9 L ABG Carboxyhemoglobin 0.4 L POC ABG HHb (Measured) 4.8 ABG Methemoglobin 0.3 Americo Test Pos A-a O2 Difference 28.0 Respiratory Index 0.4 Hgb O2 Saturation 94.6 L Liter Flow 0 FiO2 21.0 Sodium Potassium Chloride Carbon Dioxide Anion Gap BUN Creatinine Est GFR ( Amer) Est GFR (Non-Af Amer) POC Glucose (mg/dL) 461 H* Random Glucose Calcium Magnesium Total Bilirubin AST ALT Alkaline Phosphatase Total Protein Albumin Globulin Albumin/Globulin Ratio Urine Opiates Screen Urine Methadone Screen Ur Barbiturates Screen Ur Phencyclidine Scrn Ur Amphetamines Screen U Benzodiazepines Scrn U Oth Cocaine Metabols U Cannabinoids Screen B-Hydroxybutyrate 2.83 H 10/06/17 02:18 WBC RBC Hgb Hct MCV MCH MCHC RDW Plt Count MPV Neut % (Auto) Lymph % (Auto) [place] % (Auto) Eos % (Auto) Baso % (Auto) Neut # (Auto) Lymph # (Auto) [place] # (Auto) Eos # (Auto) Baso # (Auto) Neutrophils % (Manual) Lymphocytes % (Manual) Reactive Lymphs % Monocytes % (Manual) Eosinophils % (Manual) Platelet Estimate PT INR APTT Puncture Site pCO2 pO2 HCO3 ABG pH ABG Total CO2 ABG O2 Saturation ABG Base Excess ABG Hemoglobin ABG Carboxyhemoglobin POC ABG HHb (Measured) ABG Methemoglobin Americo Test A-a O2 Difference Respiratory Index Hgb O2 Saturation Liter Flow FiO2 Sodium Potassium Chloride Carbon Dioxide Anion Gap BUN Creatinine Est GFR ( Amer) Est GFR (Non-Af Amer) POC Glucose (mg/dL) Random Glucose Calcium Magnesium Total Bilirubin AST ALT Alkaline Phosphatase Total Protein Albumin Globulin Albumin/Globulin Ratio Urine Opiates Screen Positive H Urine Methadone Screen Negative Ur Barbiturates Screen Negative Ur Phencyclidine Scrn Negative Ur Amphetamines Screen Negative U Benzodiazepines Scrn Negative U Oth Cocaine Metabols Negative U Cannabinoids Screen Negative B-Hydroxybutyrate Assessment & Plan - Assessment and Plan (Free Text) Assessment: 72 year ols male with past medical history of hypertension, BPH, uncontrolled diabetes, renal failure, chronic pancreatitis, and arthritis is admitted for hyperglycemia. On initial blood work, blood glucose was 884 with positive ketones in blood. Anion gap was 26 and potassium was 6.2. ABG showed metabolic acidosis with no respiratory compensation. Hyperglycemia - ICU, Dr. Chitra Sandy was consulted and accepted pt into ICU - Pt received Lantus 20 units and Novolin 10 units which brought BS to 461 - Pt also given sodium bicarb - Will recheck electrolytes in 3 hours - Accucheck ACHS - Management per ICU HTN - Currently stable. Wll continue to monitor CKD - BUND/Cr is 39/2.5. Baseline Cr is 1.7 - will continue to monitor. Consider placing on NS Case discussed with attending, Dr. Polanco - Date & Time Date: 10/06/17 Time: 03:20 <Ran Polanco - Last Filed: 10/06/17 06:25> Results - Vital Signs Recent Vital Signs: Last Vital Signs Temp 98.2 F 10/06/17 05:45 Pulse 57 L 10/06/17 05:45 Resp 20 10/06/17 05:45 BP 111/66 10/06/17 05:45 Pulse Ox 100 10/06/17 05:45 - Labs Result Diagrams: 10/05/17 23:28 10/06/17 05:15 Labs: Laboratory Results - last 24 hr 10/05/17 10/05/17 10/05/17 23:28 23:28 23:28 WBC 4.4 L RBC 3.63 L Hgb 9.6 L Hct 31.2 L MCV 85.9 D MCH 26.4 L MCHC 30.7 L RDW 17.8 H Plt Count 200 D MPV 9.0 Neut % (Auto) 78.8 H Lymph % (Auto) 9.9 L [place] % (Auto) 7.3 Eos % (Auto) 3.3 Baso % (Auto) 0.7 Neut # (Auto) 3.5 Lymph # (Auto) 0.4 L [place] # (Auto) 0.3 Eos # (Auto) 0.1 Baso # (Auto) 0.0 Neutrophils % (Manual) 74 Lymphocytes % (Manual) 14 L Reactive Lymphs % 2 H Monocytes % (Manual) 4 Eosinophils % (Manual) 6 H Platelet Estimate Normal PT 12.7 H INR 1.2 APTT 33 Puncture Site pCO2 pO2 HCO3 ABG pH ABG Total CO2 ABG O2 Saturation ABG Base Excess ABG Hemoglobin ABG Carboxyhemoglobin POC ABG HHb (Measured) ABG Methemoglobin Americo Test A-a O2 Difference Respiratory Index Hgb O2 Saturation Liter Flow FiO2 Sodium 133 Potassium 6.2 H* D Chloride 99 Carbon Dioxide 14 L Anion Gap 26 H BUN 39 H Creatinine 2.5 H Est GFR ( Amer) 31 Est GFR (Non-Af Amer) 26 POC Glucose (mg/dL) Random Glucose 884 H* D Calcium 8.7 Phosphorus Magnesium 1.6 Total Bilirubin 0.6 AST 13 L D ALT 19 L D Alkaline Phosphatase 199 H D Total Protein 6.9 Albumin 3.5 Globulin 3.5 Albumin/Globulin Ratio 1.0 Urine Color Urine Clarity Urine pH Ur Specific Gladys Urine Protein Urine Glucose (UA) Urine Ketones Urine Blood Urine Nitrate Urine Bilirubin Urine Urobilinogen Ur Leukocyte Esterase Urine WBC (Auto) Urine RBC (Auto) Ur Squamous Epith Cells Urine Bacteria Urine Yeast (Budding) Urine Opiates Screen Urine Methadone Screen Ur Barbiturates Screen Ur Phencyclidine Scrn Ur Amphetamines Screen U Benzodiazepines Scrn U Oth Cocaine Metabols U Cannabinoids Screen B-Hydroxybutyrate 10/06/17 10/06/17 10/06/17 00:30 01:46 01:49 WBC RBC Hgb Hct MCV MCH MCHC RDW Plt Count MPV Neut % (Auto) Lymph % (Auto) [place] % (Auto) Eos % (Auto) Baso % (Auto) Neut # (Auto) Lymph # (Auto) [place] # (Auto) Eos # (Auto) Baso # (Auto) Neutrophils % (Manual) Lymphocytes % (Manual) Reactive Lymphs % Monocytes % (Manual) Eosinophils % (Manual) Platelet Estimate PT INR APTT Puncture Site R rad pCO2 38 pO2 74 L HCO3 19.4 L ABG pH 7.30 L ABG Total CO2 19.9 L ABG O2 Saturation 95.2 ABG Base Excess -7.1 L ABG Hemoglobin 8.9 L ABG Carboxyhemoglobin 0.4 L POC ABG HHb (Measured) 4.8 ABG Methemoglobin 0.3 Americo Test Pos A-a O2 Difference 28.0 Respiratory Index 0.4 Hgb O2 Saturation 94.6 L Liter Flow 0 FiO2 21.0 Sodium Potassium Chloride Carbon Dioxide Anion Gap BUN Creatinine Est GFR ( Amer) Est GFR (Non-Af Amer) POC Glucose (mg/dL) 461 H* Random Glucose Calcium Phosphorus Magnesium Total Bilirubin AST ALT Alkaline Phosphatase Total Protein Albumin Globulin Albumin/Globulin Ratio Urine Color Urine Clarity Urine pH Ur Specific Gladys Urine Protein Urine Glucose (UA) Urine Ketones Urine Blood Urine Nitrate Urine Bilirubin Urine Urobilinogen Ur Leukocyte Esterase Urine WBC (Auto) Urine RBC (Auto) Ur Squamous Epith Cells Urine Bacteria Urine Yeast (Budding) Urine Opiates Screen Urine Methadone Screen Ur Barbiturates Screen Ur Phencyclidine Scrn Ur Amphetamines Screen U Benzodiazepines Scrn U Oth Cocaine Metabols U Cannabinoids Screen B-Hydroxybutyrate 2.83 H 10/06/17 10/06/17 10/06/17 02:18 03:08 03:09 WBC RBC Hgb Hct MCV MCH MCHC RDW Plt Count MPV Neut % (Auto) Lymph % (Auto) [place] % (Auto) Eos % (Auto) Baso % (Auto) Neut # (Auto) Lymph # (Auto) [place] # (Auto) Eos # (Auto) Baso # (Auto) Neutrophils % (Manual) Lymphocytes % (Manual) Reactive Lymphs % Monocytes % (Manual) Eosinophils % (Manual) Platelet Estimate PT INR APTT Puncture Site pCO2 pO2 HCO3 ABG pH ABG Total CO2 ABG O2 Saturation ABG Base Excess ABG Hemoglobin ABG Carboxyhemoglobin POC ABG HHb (Measured) ABG Methemoglobin Americo Test A-a O2 Difference Respiratory Index Hgb O2 Saturation Liter Flow FiO2 Sodium Potassium Chloride Carbon Dioxide Anion Gap BUN Creatinine Est GFR ( Amer) Est GFR (Non-Af Amer) POC Glucose (mg/dL) Random Glucose Calcium Phosphorus 5.7 H Magnesium Total Bilirubin AST ALT Alkaline Phosphatase Total Protein Albumin Globulin Albumin/Globulin Ratio Urine Color Yellow Urine Clarity Hazy Urine pH 5.0 Ur Specific Gladys 1.017 Urine Protein 2+ H Urine Glucose (UA) 3+ H Urine Ketones Negative Urine Blood 2+ H Urine Nitrate Negative Urine Bilirubin Negative Urine Urobilinogen Normal Ur Leukocyte Esterase Neg Urine WBC (Auto) 6 H Urine RBC (Auto) 14 H Ur Squamous Epith Cells < 1 Urine Bacteria Rare Urine Yeast (Budding) Occ H Urine Opiates Screen Positive H Urine Methadone Screen Negative Ur Barbiturates Screen Negative Ur Phencyclidine Scrn Negative Ur Amphetamines Screen Negative U Benzodiazepines Scrn Negative U Oth Cocaine Metabols Negative U Cannabinoids Screen Negative B-Hydroxybutyrate 10/06/17 10/06/17 10/06/17 05:15 05:57 06:00 WBC RBC Hgb Hct MCV MCH MCHC RDW Plt Count MPV Neut % (Auto) Lymph % (Auto) [place] % (Auto) Eos % (Auto) Baso % (Auto) Neut # (Auto) Lymph # (Auto) [place] # (Auto) Eos # (Auto) Baso # (Auto) Neutrophils % (Manual) Lymphocytes % (Manual) Reactive Lymphs % Monocytes % (Manual) Eosinophils % (Manual) Platelet Estimate PT INR APTT Puncture Site pCO2 pO2 HCO3 ABG pH ABG Total CO2 ABG O2 Saturation ABG Base Excess ABG Hemoglobin ABG Carboxyhemoglobin POC ABG HHb (Measured) ABG Methemoglobin Americo Test A-a O2 Difference Respiratory Index Hgb O2 Saturation Liter Flow FiO2 Sodium 147 Potassium 4.4 Chloride 111 H Carbon Dioxide 21 L Anion Gap 20 BUN 36 H Creatinine 2.3 H Est GFR ( Amer) 34 Est GFR (Non-Af Amer) 28 POC Glucose (mg/dL) 59 L 64 L Random Glucose 83 Calcium 9.8 Phosphorus 3.7 Magnesium 1.7 Total Bilirubin 0.5 AST 14 L ALT 22 Alkaline Phosphatase 179 H Total Protein 6.8 Albumin 3.3 L Globulin 3.5 Albumin/Globulin Ratio 0.9 L Urine Color Urine Clarity Urine pH Ur Specific Gladys Urine Protein Urine Glucose (UA) Urine Ketones Urine Blood Urine Nitrate Urine Bilirubin Urine Urobilinogen Ur Leukocyte Esterase Urine WBC (Auto) Urine RBC (Auto) Ur Squamous Epith Cells Urine Bacteria Urine Yeast (Budding) Urine Opiates Screen Urine Methadone Screen Ur Barbiturates Screen Ur Phencyclidine Scrn Ur Amphetamines Screen U Benzodiazepines Scrn U Oth Cocaine Metabols U Cannabinoids Screen B-Hydroxybutyrate 0.15 Assessment & Plan - Date & Time Date: 10/06/17 (I have seen and examined the patient. I agree with the findings and plan of care as documented by Dr. Olivares. Patient with uncontrolled diabetes. Hyperglycemia and hyperosmolar. Admit to ICU. Received insulin bolus in ED and IVF. Further management as per ICU. Also with ESRD on dialysis. Consult nephro to continue dialysis schedule. Monitor for acute changes.) Time: 06:24 Attending/Attestation - Attestation I have personally seen and examined this patient.: Yes I have fully participated in the care of the patient.: Yes I have reviewed all pertinent clinical information: Yes
[2017-10-06 05:58] LABS: ALB/GLOB RATIO 0.9 (1.0-2.1); ALBUMIN 3.3 g/dL (3.5-5.0); CALCIUM 9.8 mg/dl (8.6-10.4)
[2017-10-06] MEDS ORDERED: Dextrose 50% SYRINGE Inj (50 ml) ONE (06:08)
[2017-10-06] MEDS ORDERED: Dextrose 50% SYRINGE Inj (50 ml) IV STA (06:17)
[2017-10-06] MEDS ORDERED: Lactated Ringer's 1,000 ML IV SCH (06:30)
[2017-10-06] MEDS ORDERED: Sodium Chloride 0.9% 1,000 ML ONE (06:34)
[2017-10-06] MEDS ORDERED: Dextrose 50% SYRINGE Inj (50 ml) IV ONE (06:45)
[2017-10-06] MEDS ORDERED: Docusate-Senna 50 mg-8.6 mg Tab PO PRN (06:55)
[2017-10-06] MEDS ORDERED: Sodium Chloride 0.45% 1,000 ML IV SCH ×2 (07:00→16:03)
[2017-10-06] MEDS ORDERED: (Novolog) Insulin Aspart, Recombinant 100 u/ml 10 ml vial SC SCH ×2 (07:30→16:30)
[2017-10-06] MEDS: (Novolin R) Insulin Human Regular 100 units/ml vial SC SCH ×2 (08:22→11:26)
[2017-10-06 08:32] VITALS: RESP 20
--- NOTE | 2017-10-06 08:39 | RAD ---
HISTORY: Sepsis Patient COMPARISON: 09/25/2017 FINDINGS: LUNGS: No active pulmonary disease. PLEURA: No significant pleural effusion identified, no pneumothorax apparent. CARDIOVASCULAR: Normal. OSSEOUS STRUCTURES: No significant abnormalities. VISUALIZED UPPER ABDOMEN: Normal. OTHER FINDINGS: None. IMPRESSION: No active disease.
--- NOTE | 2017-10-06 09:19 | US ---
Abdominal ultrasound History: Evaluate liver and kidneys. Comparison: CT dated 09/25/2017 Technique: Real-time sonography was performed through the abdomen. Findings: Liver: 15.7 centimeters in length. Increased echogenicity of the hepatic parenchymal cortex. Gallbladder: No calculi or sludge. Normal wall thickness of 2.7 millimeters. Negative sonographic Zamorano's sign. Common bile duct is prominent measuring up to 1.1 centimeters. Pancreas not visualized. Spleen measures 9.3 centimeters in length, within normal limits. Visualized aorta and IVC are preserved. Mid and distal aorta not well visualized. Right kidney: 10.2 x 4.9 x 6.8 centimeters. No calculi or hydronephrosis. Midpole punctate hypoechoic cyst measuring 4 x 3 x 4 millimeters. Left Kidney: 10.1 x 4.8 x 5.0 centimeters. No calculi or hydronephrosis. Impression: 1. Increased echogenicity of the hepatic parenchymal cortex suggestive for fatty infiltration versus hepatic parenchymal disease. Clinical correlation. 2. Prominent common bile duct measuring up to 1.1 centimeters. Clinical correlation. 3. 4 millimeter hypoechoic midpole right renal cyst. 4. Pancreas not visualized.
[2017-10-06] MEDS ORDERED: Multiple Vitamins Tab PO SCH (10:00)
[2017-10-06 10:34] LABS: HEMOGLOBIN 9.2 g/dL (12.0-18.0); MEAN CORPUSCULAR HEMOGLOBIN 26.4 pg (27.0-31.0); MEAN CORPUSCULAR HGB CONC 32.9 g/dL (33.0-37.0); MEAN PLATELET VOLUME 9.1 fL (7.2-11.7); RBC 3.47 Mil/uL (4.40-5.90); RED CELL DISTRIBUTION WIDTH 17.4 % (11.5-14.5); WHITE BLOOD COUNT 4.5 K/uL (4.8-10.8)
[2017-10-06 10:45] LABS: MEAN CELL VOLUME 80.4 fL (80.0-94.0)
--- NOTE | 2017-10-06 10:59 | HP ---
HISTORY OF PRESENT ILLNESS: I know Ferny from multiple admissions over the past month in [facility] and [facility]. He has not shown up in the office in a while in between visits. He is a 72-year-old -[place] man who has got a very poor control of his diabetes, the last 3 times he was in the hospital all for blood sugars in the 20s and 30s. This time, he comes in with extremely high blood sugars greater than 800. He is having muscle spasms and inability to walk. He complains of arms and legs in spasm and in pain. At this present time, he is doing better, but at times like I had to give him with IV fluids and insulin. He had difficulty speaking when he first came in but now he is better. He was going to go to the unit, but the blood sugars have improved and he is not in DKA. PAST MEDICAL HISTORY: Elevated blood sugars, low blood sugars, diabetes, anemia, arthritis, gastrointestinal ulcers, hypertension, high cholesterol, pancreatitis, chronic peripheral edema, chronic kidney disease. No seizures. He has had endoscopy, he has had hernia repair, femoral vein upper vein, he had intubation. FAMILY HISTORY: Diabetes in his family, hypertension in his family. SOCIAL HISTORY: No smoking. Occasional alcohol. No substance abuse. MEDICATIONS: He is taking multiple medications. He is supposed to be on hydralazine, Coreg, Norvasc, atorvastatin, calcitriol, multivitamin, iron, tamsulosin, aspirin, vitamin B, gabapentin, ranitidine, Senokot and sodium bicarb. He was sent home on glyburide, I wrote a prescription 5 mg twice a day and is not on his list of medications nor is any other medications for diabetes like insulin is on his list, not sure why. REVIEW OF SYSTEMS: He is presently comfortable in bed in the emergency room. He was out of bed this morning, now, he is alert and taking. No chest pain or shortness of breath. No vision or hearing changes at this time. No palpitations. No cough. No abdominal pain. No nausea, vomiting, constipation or diarrhea. He did have muscle spasms already that had left him, no more, extremities. No rashes. He is weak. No skin issues that he is aware of. PHYSICAL EXAMINATION: VITAL SIGNS: He has 98.5 temp, 56 pulse, 118/70 blood pressure, 20 respiratory rate, 100% O2 saturation on room at this time. I am not going to put him on his blood pressure pill at this time due to his blood pressure being low. GENERAL: He is comfortable lying in the gurney in the ER, nontoxic, no acute distress at this time, talking comfortably. SKIN: Warm and dry. HEENT: Head is atraumatic, normocephalic. Extraocular muscles are intact. Pupils are reactive to light and accommodation. Throat is moist. NECK: Supple. HEART: Regular rate. Normal S1, S2. LUNGS: Decreased breath sounds bilaterally but clear to auscultation. ABDOMEN: Soft and nontender. Positive bowel sounds. No guarding. No rebound. No CVA tenderness. EXTREMITIES: He can move all 4 extremities with no edema. Skin for the most part is intact that I could tell. NEUROLOGIC: He is alert and oriented x3. Cranial nerves II through XII are grossly intact at this time. THYROID: Midline. No palpable lymphadenopathy appreciated. LABORATORY DATA: He has a 147 sodium, potassium 4.4, it was as high as 6.2, he was given medication to get that down, BUN is 36, creatinine 2.3, coming down, it was as high as 39 and 2.5 with acute kidney injury. Blood sugars were 884, 461, now it is down to 64 with a little bit of insulin. Calcium is 9.8, phosphorus 3.7, magnesium 1.7, total bilirubin is 0.5, AST is 14, ALT is 22, alk phos is 139, total protein 6.8. White count is 4.4, hemoglobin 9.6, hematocrit 31.2, platelet of 200. INR is 1.2. Blood gas, pCO2 of 38, pO2 is 74, pH 7.3. Urine, 3+ glucose, 2+ protein. Toxicology, positive for opiates. ASSESSMENT AND PLAN: We will have consult with Endocrinology and Renal. He will be on IV fluids. I will put him back on his regular medications but not his blood pressure pills until his blood pressure starts to go up. Also, I will put him on insulin coverage. Await for Endocrinology and Renal. We will check his labs tomorrow, order physical therapy. extremely high blood sugars possibly noncompliant at home. Zohaib Morgan DO [facility] # [id number] DAISY
--- NOTE | 2017-10-06 16:05 | CP.PCM.CON ---
History of Present Illness - History of Present Illness History of Present Illness: Nephrology Consultation Note: Assessment: stable Acute Kidney Injury (N17.9) likely hdemodynamic Uncontrolled diabetes mellitus with hypoglycemia and hyperosmolar hyperglycemic state Diabetic chronic Kidney Disease (E11.22) Hypertensive Chronic Kidney Disease (I12.9) Chronic Kidney Disease (N18.3) Stage 3 with 580 mg proteinuria (R80.9) likely due to DM Anemia (D64.9), Vit D def with Secondary Hyperparathyroidism (E21.1), HTN (I12.9 ) BPH, diabetic neuropathy, chronic pancreatitis on opiates gastric ulcer, hx of etoh and smoking in past Plan No acute need for renal replacement therapy at this time. Hypertension control with meds as ordered. Patient not on ACEI/ARB due to KHALIDA Tendency and hyperkalemia. resume hydralazine, and norvasc. considering his hypoglycemic episodes, will try to avoid Beta-blockers Monitor Input/Output, daily weights and renal function with basic metabolic panel Patient supposed to be on [place] at home every day, continue at d/c resume lyrica for diabetic neuropathy. d/c neurontin At home pt on sodium bicarbonate 650 mg 2 times a day, iron 325 mg 3 times a day , multivitamin once a day, Flomax 0.4 mg once a day, calcitriol 0.25 g once a day: resume continue with PPI as pt with hx of gastric ulcer endocrine kenny d/c ladi. also d/c IVF soon as pt with edema Dose meds/antibiotics for reduced GFR. Avoid fleets enema/magnesium based laxatives. Avoid nephrotoxins/NSAIDs/ iodinated contrast (unless needed emergently) Glycemic control Further work up/management as per primary team Thanks for allowing me to participate in care of your patient. Will follow patient with you. Please call if any Qs. had d/w team Dr Juan Diego Light Office: [phone] reason for consult: KHALIDA, CKD HPI:Pt is a 71 M with hx of uncontrolled diabetes Mellitus ( 30 years) [ endocrine Dr Matson as outpt] with retinopathy, hypertension (15-20 years), CKD 3 (baseline cr 2.0 range), s/p Right total hip replacement, gout, chronic pancreatitis on chronic opiates as morphine, gastric ulcer (EGD jan 2017) with hiatal hernia Presented to the hospital With Hyperglycemia Renal consult for kidney disease management pt has uncontrolled DM with sugars ranging from 20 to 500+ he had recent Multiple hospitalizations for DKA/hyperglycemia and hypoglycemia ROS: feels better now. denies CP/SOB. denies nausea and upper abdomen pain. rest all other negative except as mentioned in HPI Physical Examination: General Appearance: in no acute respiratory distress, co-operative Vitals reviewed and noted as below Head; Atraumatic, normocephalic ENT: no ulcers no thrush. Tongue is midline. Oropharynx: no rash or ulcers. EYES: Pupils are equal, round and reactive to light accommodation. Eye muscles and extraocular movement intact. Sclera is anicteric. Neck; supple no lymphadenopathy, no thyromegaly or bruit Lungs: Normal respiratory rate/effort. Breath sounds bilateral equal and clear Heart: Normal rate. s1s2 normal. No rub or gallop. Extremities: 1+ edema. No varicose veins Neurological: Patient is AO x 3 no focal deficit Skin: Warm and dry. Normal turgor. No rash. Palpitation: Normal elasticity for age Abdomen: Abdomen is soft. Bowel sounds +. There is no abdominal tenderness, no guarding/rigidity no organomegaly Psych: normal affect/mood and good insight MSK: no joint tenderness or swelling. Digits and nails normal, no deformity : kidney or bladder not palpable Labs/imaging reviewed. Past medical history, past surgical history, family history, social history, allergy reviewed and noted as below Family hx: no hx of CKD. Rest non-contributory Work up: jan 2017: a1c 8.5 urine proc/cr 724 Ua 30 pr no blood 04/04/2017: Na 140 K 6 Bicarb 17 BUN/Cr 35/2.2 (GFR 38%) PTH 881 Vit D <13 Hb 11.3 06/11/2017: SPEP neg [place]/lambda ratio normal although faint free lambda in JANI albumin 4.2 TSH 2.3 A1c 9.6% LDL 41 Hb 12.1 9% Ferritin 28 folate >20 B12 >1000 PTH 902 Phos 4.7 Vit D <13 Na 135 K 5.5 Bicarb 19 Ca 9.2 BUN/Cr 40/2.0 (GFR 42) UA 30 protein 500 glucose no blood pr/cr ratio 587 mg/gr creat as outpt leg art doppler/JENNYFER: WNL, renal sono 7 mm cyst and aortic sono: no aneursym Past Patient History - Infectious Disease Hx of Infectious Diseases: None - Tetanus Immunizations Tetanus Immunization: Unknown - Past Medical History & Family History Past Medical History?: Yes - Past Social History Smoking Status: Never Smoked - CARDIAC Hx Congestive Heart Failure: Yes Hx Hypercholesterolemia: Yes Hx Hypertension: Yes - PULMONARY Hx Respiratory Disorders: Yes (USED TO SMOKE 3 PPD X 35 YRS.QUIT 1989) - NEUROLOGICAL Hx Seizures: (pt denies) - HEENT Hx HEENT Problems: Yes Hx Cataracts: Yes (BILATERAL) - RENAL Hx Chronic Kidney Disease: Yes - ENDOCRINE/METABOLIC Hx Diabetes Mellitus Type 2: Yes - HEMATOLOGICAL/ONCOLOGICAL Hx Anemia: Yes - INTEGUMENTARY Hx Dermatological Problems: No - MUSCULOSKELETAL/RHEUMATOLOGICAL Hx Arthritis: Yes - GASTROINTESTINAL Hx Pancreatitis: Yes (CHRONIC) - GENITOURINARY/GYNECOLOGICAL Hx Genitourinary Disorders: Yes Hx Prostate Problems: Yes (R TURP for BPH) - PSYCHIATRIC Hx Substance Use: No - SURGICAL HISTORY Hx Arthroscopy: Yes (LEFT SHOULDER) Hx Cataract Extraction: Yes (LEFT EYE) Hx Joint Replacement: Yes (RIGHT HIP ) Hx Musculoskeletal Surgery: Yes Hx Orthopedic Surgery: Yes Other/Comment: hernia repair, left shoulder torn ligament - ANESTHESIA Hx Anesthesia: Yes Hx Anesthesia Reactions: No Hx Malignant Hyperthermia: No Meds Allergies/Adverse Reactions: Allergies Allergy/AdvReac Type Severity Reaction Status Date / Time No Known Allergies Allergy Verified 10/05/17 23:14 - Medications Medications: Current Medications Acetaminophen (Tylenol 325mg Tab) 650 mg PO Q6 PRN PRN Reason: Pain, moderate (4-7) Last Admin: 10/06/17 14:38 Dose: 650 mg Amlodipine Besylate (Norvasc) 10 mg PO DAILY [facility] Last Admin: 10/06/17 11:02 Dose: 10 mg Aspirin (Ecotrin) 81 mg PO DAILY [facility] Last Admin: 10/06/17 10:41 Dose: 81 mg Calcitriol (Rocaltrol) 0.5 mcg PO DAILY [facility] Last Admin: 10/06/17 11:01 Dose: 0.5 mcg Famotidine (Pepcid) 20 mg PO BID [facility] Last Admin: 10/06/17 10:41 Dose: 20 mg Ferrous Sulfate (Feosol) 325 mg PO BID [facility] Last Admin: 10/06/17 10:41 Dose: 325 mg Gabapentin (Neurontin) 100 mg PO TID [facility] Last Admin: 10/06/17 13:47 Dose: 100 mg Sodium Chloride (Sodium Chloride 0.45%) 1,000 mls @ 75 mls/hr IV .[id number] [facility] Last Admin: 10/06/17 07:04 Dose: 75 mls/hr Insulin Human Regular (Novolin R) 0 unit SC ACHS [facility] Last Admin: 10/06/17 11:26 Dose: Not Given Rosuvastatin Calcium (Crestor) 5 mg PO HS [facility] Senna/Docusate Sodium (Senokot S 50 Mg-8.6 Mg) 1 tab PO BID PRN PRN Reason: Constipation Sodium Bicarbonate (Sodium Bicarbonate Tab) 1,300 mg PO Q6 [facility] Last Admin: 10/06/17 12:46 Dose: 1,300 mg Tamsulosin HCl (Flomax) 0.4 mg PO DAILY [facility] Last Admin: 10/06/17 10:41 Dose: 0.4 mg Vitamin B Complex/Vit C/Folic Acid (Nephro-Lis) 1 tab PO 0800 [facility] Results - Vital Signs Recent Vital Signs: Last Vital Signs Temp 97.5 F L 10/06/17 10:19 Pulse 107 H 10/06/17 12:36 Resp 20 10/06/17 10:19 BP 165/78 H 10/06/17 10:45 Pulse Ox 92 L 10/06/17 12:36 - Labs Result Diagrams: 10/06/17 10:22 10/06/17 05:15 Labs: Laboratory Results - last 24 hr 10/05/17 10/05/17 10/05/17 23:28 23:28 23:28 WBC 4.4 L RBC 3.63 L Hgb 9.6 L Hct 31.2 L MCV 85.9 D MCH 26.4 L MCHC 30.7 L RDW 17.8 H Plt Count 200 D MPV 9.0 Neut % (Auto) 78.8 H Lymph % (Auto) 9.9 L Day % (Auto) 7.3 Eos % (Auto) 3.3 Baso % (Auto) 0.7 Neut # (Auto) 3.5 Lymph # (Auto) 0.4 L Day # (Auto) 0.3 Eos # (Auto) 0.1 Baso # (Auto) 0.0 Neutrophils % (Manual) 74 Lymphocytes % (Manual) 14 L Reactive Lymphs % 2 H Monocytes % (Manual) 4 Eosinophils % (Manual) 6 H Platelet Estimate Normal PT 12.7 H INR 1.2 APTT 33 Puncture Site pCO2 pO2 HCO3 ABG pH ABG Total CO2 ABG O2 Saturation ABG Base Excess ABG Hemoglobin ABG Carboxyhemoglobin POC ABG HHb (Measured) ABG Methemoglobin Americo Test A-a O2 Difference Respiratory Index Hgb O2 Saturation Liter Flow FiO2 Sodium 133 Potassium 6.2 H* D Chloride 99 Carbon Dioxide 14 L Anion Gap 26 H BUN 39 H Creatinine 2.5 H Est GFR ( Amer) 31 Est GFR (Non-Af Amer) 26 POC Glucose (mg/dL) Random Glucose 884 H* D Calcium 8.7 Phosphorus Magnesium 1.6 Total Bilirubin 0.6 AST 13 L D ALT 19 L D Alkaline Phosphatase 199 H D Total Protein 6.9 Albumin 3.5 Globulin 3.5 Albumin/Globulin Ratio 1.0 Urine Color Urine Clarity Urine pH Ur Specific [place] Urine Protein Urine Glucose (UA) Urine Ketones Urine Blood Urine Nitrate Urine Bilirubin Urine Urobilinogen Ur Leukocyte Esterase Urine WBC (Auto) Urine RBC (Auto) Ur Squamous Epith Cells Urine Bacteria Urine Yeast (Budding) Urine Opiates Screen Urine Methadone Screen Ur Barbiturates Screen Ur Phencyclidine Scrn Ur Amphetamines Screen U Benzodiazepines Scrn U Oth Cocaine Metabols U Cannabinoids Screen B-Hydroxybutyrate 10/06/17 10/06/17 10/06/17 00:30 01:46 01:49 WBC RBC Hgb Hct MCV MCH MCHC RDW Plt Count MPV Neut % (Auto) Lymph % (Auto) Day % (Auto) Eos % (Auto) Baso % (Auto) Neut # (Auto) Lymph # (Auto) Day # (Auto) Eos # (Auto) Baso # (Auto) Neutrophils % (Manual) Lymphocytes % (Manual) Reactive Lymphs % Monocytes % (Manual) Eosinophils % (Manual) Platelet Estimate PT INR APTT Puncture Site R rad pCO2 38 pO2 74 L HCO3 19.4 L ABG pH 7.30 L ABG Total CO2 19.9 L ABG O2 Saturation 95.2 ABG Base Excess -7.1 L ABG Hemoglobin 8.9 L ABG Carboxyhemoglobin 0.4 L POC ABG HHb (Measured) 4.8 ABG Methemoglobin 0.3 Americo Test Pos A-a O2 Difference 28.0 Respiratory Index 0.4 Hgb O2 Saturation 94.6 L Liter Flow 0 FiO2 21.0 Sodium Potassium Chloride Carbon Dioxide Anion Gap BUN Creatinine Est GFR ( Amer) Est GFR (Non-Af Amer) POC Glucose (mg/dL) 461 H* Random Glucose Calcium Phosphorus Magnesium Total Bilirubin AST ALT Alkaline Phosphatase Total Protein Albumin Globulin Albumin/Globulin Ratio Urine Color Urine Clarity Urine pH Ur Specific [place] Urine Protein Urine Glucose (UA) Urine Ketones Urine Blood Urine Nitrate Urine Bilirubin Urine Urobilinogen Ur Leukocyte Esterase Urine WBC (Auto) Urine RBC (Auto) Ur Squamous Epith Cells Urine Bacteria Urine Yeast (Budding) Urine Opiates Screen Urine Methadone Screen Ur Barbiturates Screen Ur Phencyclidine Scrn Ur Amphetamines Screen U Benzodiazepines Scrn U Oth Cocaine Metabols U Cannabinoids Screen B-Hydroxybutyrate 2.83 H 10/06/17 10/06/17 10/06/17 02:18 03:08 03:09 WBC RBC Hgb Hct MCV MCH MCHC RDW Plt Count MPV Neut % (Auto) Lymph % (Auto) Day % (Auto) Eos % (Auto) Baso % (Auto) Neut # (Auto) Lymph # (Auto) Day # (Auto) Eos # (Auto) Baso # (Auto) Neutrophils % (Manual) Lymphocytes % (Manual) Reactive Lymphs % Monocytes % (Manual) Eosinophils % (Manual) Platelet Estimate PT INR APTT Puncture Site pCO2 pO2 HCO3 ABG pH ABG Total CO2 ABG O2 Saturation ABG Base Excess ABG Hemoglobin ABG Carboxyhemoglobin POC ABG HHb (Measured) ABG Methemoglobin Americo Test A-a O2 Difference Respiratory Index Hgb O2 Saturation Liter Flow FiO2 Sodium Potassium Chloride Carbon Dioxide Anion Gap BUN Creatinine Est GFR ( Amer) Est GFR (Non-Af Amer) POC Glucose (mg/dL) Random Glucose Calcium Phosphorus 5.7 H Magnesium Total Bilirubin AST ALT Alkaline Phosphatase Total Protein Albumin Globulin Albumin/Globulin Ratio Urine Color Yellow Urine Clarity Hazy Urine pH 5.0 Ur Specific [place] 1.017 Urine Protein 2+ H Urine Glucose (UA) 3+ H Urine Ketones Negative Urine Blood 2+ H Urine Nitrate Negative Urine Bilirubin Negative Urine Urobilinogen Normal Ur Leukocyte Esterase Neg Urine WBC (Auto) 6 H Urine RBC (Auto) 14 H Ur Squamous Epith Cells < 1 Urine Bacteria Rare Urine Yeast (Budding) Occ H Urine Opiates Screen Positive H Urine Methadone Screen Negative Ur Barbiturates Screen Negative Ur Phencyclidine Scrn Negative Ur Amphetamines Screen Negative U Benzodiazepines Scrn Negative U Oth Cocaine Metabols Negative U Cannabinoids Screen Negative B-Hydroxybutyrate 10/06/17 10/06/17 10/06/17 05:15 05:57 06:00 WBC RBC Hgb Hct MCV MCH MCHC RDW Plt Count MPV Neut % (Auto) Lymph % (Auto) Day % (Auto) Eos % (Auto) Baso % (Auto) Neut # (Auto) Lymph # (Auto) Day # (Auto) Eos # (Auto) Baso # (Auto) Neutrophils % (Manual) Lymphocytes % (Manual) Reactive Lymphs % Monocytes % (Manual) Eosinophils % (Manual) Platelet Estimate PT INR APTT Puncture Site pCO2 pO2 HCO3 ABG pH ABG Total CO2 ABG O2 Saturation ABG Base Excess ABG Hemoglobin ABG Carboxyhemoglobin POC ABG HHb (Measured) ABG Methemoglobin Americo Test A-a O2 Difference Respiratory Index Hgb O2 Saturation Liter Flow FiO2 Sodium 147 Potassium 4.4 Chloride 111 H Carbon Dioxide 21 L Anion Gap 20 BUN 36 H Creatinine 2.3 H Est GFR ( Amer) 34 Est GFR (Non-Af Amer) 28 POC Glucose (mg/dL) 59 L 64 L Random Glucose 83 Calcium 9.8 Phosphorus 3.7 Magnesium 1.7 Total Bilirubin 0.5 AST 14 L ALT 22 Alkaline Phosphatase 179 H Total Protein 6.8 Albumin 3.3 L Globulin 3.5 Albumin/Globulin Ratio 0.9 L Urine Color Urine Clarity Urine pH Ur Specific [place] Urine Protein Urine Glucose (UA) Urine Ketones Urine Blood Urine Nitrate Urine Bilirubin Urine Urobilinogen Ur Leukocyte Esterase Urine WBC (Auto) Urine RBC (Auto) Ur Squamous Epith Cells Urine Bacteria Urine Yeast (Budding) Urine Opiates Screen Urine Methadone Screen Ur Barbiturates Screen Ur Phencyclidine Scrn Ur Amphetamines Screen U Benzodiazepines Scrn U Oth Cocaine Metabols U Cannabinoids Screen B-Hydroxybutyrate 0.15 10/06/17 10/06/17 10/06/17 06:32 08:01 10:22 WBC 4.5 L RBC 3.47 L Hgb 9.2 L Hct 27.9 L MCV 80.4 D MCH 26.4 L MCHC 32.9 L RDW 17.4 H Plt Count 218 MPV 9.1 Neut % (Auto) Lymph % (Auto) Day % (Auto) Eos % (Auto) Baso % (Auto) Neut # (Auto) Lymph # (Auto) Day # (Auto) Eos # (Auto) Baso # (Auto) Neutrophils % (Manual) Lymphocytes % (Manual) Reactive Lymphs % Monocytes % (Manual) Eosinophils % (Manual) Platelet Estimate PT INR APTT Puncture Site pCO2 pO2 HCO3 ABG pH ABG Total CO2 ABG O2 Saturation ABG Base Excess ABG Hemoglobin ABG Carboxyhemoglobin POC ABG HHb (Measured) ABG Methemoglobin Americo Test A-a O2 Difference Respiratory Index Hgb O2 Saturation Liter Flow FiO2 Sodium Potassium Chloride Carbon Dioxide Anion Gap BUN Creatinine Est GFR ( Amer) Est GFR (Non-Af Amer) POC Glucose (mg/dL) 178 H 108 Random Glucose Calcium Phosphorus Magnesium Total Bilirubin AST ALT Alkaline Phosphatase Total Protein Albumin Globulin Albumin/Globulin Ratio Urine Color Urine Clarity Urine pH Ur Specific [place] Urine Protein Urine Glucose (UA) Urine Ketones Urine Blood Urine Nitrate Urine Bilirubin Urine Urobilinogen Ur Leukocyte Esterase Urine WBC (Auto) Urine RBC (Auto) Ur Squamous Epith Cells Urine Bacteria Urine Yeast (Budding) Urine Opiates Screen Urine Methadone Screen Ur Barbiturates Screen Ur Phencyclidine Scrn Ur Amphetamines Screen U Benzodiazepines Scrn U Oth Cocaine Metabols U Cannabinoids Screen B-Hydroxybutyrate 10/06/17 11:10 WBC RBC Hgb Hct MCV MCH MCHC RDW Plt Count MPV Neut % (Auto) Lymph % (Auto) Day % (Auto) Eos % (Auto) Baso % (Auto) Neut # (Auto) Lymph # (Auto) Day # (Auto) Eos # (Auto) Baso # (Auto) Neutrophils % (Manual) Lymphocytes % (Manual) Reactive Lymphs % Monocytes % (Manual) Eosinophils % (Manual) Platelet Estimate PT INR APTT Puncture Site pCO2 pO2 HCO3 ABG pH ABG Total CO2 ABG O2 Saturation ABG Base Excess ABG Hemoglobin ABG Carboxyhemoglobin POC ABG HHb (Measured) ABG Methemoglobin Americo Test A-a O2 Difference Respiratory Index Hgb O2 Saturation Liter Flow FiO2 Sodium Potassium Chloride Carbon Dioxide Anion Gap BUN Creatinine Est GFR ( Amer) Est GFR (Non-Af Amer) POC Glucose (mg/dL) 104 Random Glucose Calcium Phosphorus Magnesium Total Bilirubin AST ALT Alkaline Phosphatase Total Protein Albumin Globulin Albumin/Globulin Ratio Urine Color Urine Clarity Urine pH Ur Specific [place] Urine Protein Urine Glucose (UA) Urine Ketones Urine Blood Urine Nitrate Urine Bilirubin Urine Urobilinogen Ur Leukocyte Esterase Urine WBC (Auto) Urine RBC (Auto) Ur Squamous Epith Cells Urine Bacteria Urine Yeast (Budding) Urine Opiates Screen Urine Methadone Screen Ur Barbiturates Screen Ur Phencyclidine Scrn Ur Amphetamines Screen U Benzodiazepines Scrn U Oth Cocaine Metabols U Cannabinoids Screen B-Hydroxybutyrate
--- NOTE | 2017-10-06 16:46 | CARD ---
APPROVED REPORT EKG Measurement Heart [id number] <Conclusion> Sinus bradycardia Septal infarct, age undetermined Abnormal ECG
--- NOTE | 2017-10-06 16:47 | CARD ---
APPROVED REPORT EKG Measurement Heart [id number] <Conclusion> Normal sinus rhythm Septal infarct, age undetermined Abnormal ECG
[2017-10-06] MEDS ORDERED: (Lantus) Insulin Glargine, Recombinant SC SCH (22:00)
--- NOTE | 2017-10-07 04:51 | CON ---
DATE: ENDOCRINOLOGY CONSULT LOCATION: Room 557. HISTORY OF PRESENT ILLNESS: This is a 72-year-old male with known history of type 2 insulin-requiring diabetes, presenting here with marked hyperglycemic accelerations and glucose levels over 800 mg/dL with supervening overnight development of marked hypoglycemia after being given by the medical staff long-acting and short-acting insulin therapy as noted. PAST MEDICAL HISTORY: As mentioned above, history of type 2 insulin-requiring diabetes, on a combination of Lantus and NovoLog given as ordered. History of hypertension, cardiovascular disease and dyslipidemia. History of diabetic retinopathy, polyneuropathy and nephropathy with progressive renal insufficiency. History of coronary artery disease with underlying peripheral arterial disease and vasculopathy. History of chronic recurrent pancreatitis. He also has significant osteoarthritis with a prior right hip replacement procedure and a left shoulder arthroscopy undertaken. He also has lumbar disk disease and lumbosacral osteoarthritis. He had a prior right inguinal hernia repair some years ago. History of benign prostatic hypertrophy, on medical therapy as noted. FAMILY HISTORY: Positive for hypertension and heart disease. SOCIAL HISTORY: The patient is a former smoker and quit many years ago where he actually smoked 3 to 4 packs a day for 35 years as noted. He also admits to chronic alcoholism but quit when he developed pancreatitis. He has a supportive family, otherwise. REVIEW OF SYSTEMS: As mentioned above. Admits to generalized body weakness with sudden onset of lower extremity weakness on the day of admission with increasing hypersomnolence and lethargy. Also admits to visual blurring and bifrontal headaches with increasing bouts of easy fatigability and tiredness with suboptimal energy level. No chest pain, palpitations, or PND but admits occasional bouts of shortness of breath, especially on exertion. His oral intake has been variable with nausea, dyspepsia, and vague upper abdominal pain. Also admits to habitual constipation, moreover admits to recent bouts of marked polyuria, nocturia, polydipsia, and polyphagia as noted. Also admits to lower extremity painful paresthesias, especially nocturnally. PHYSICAL EXAMINATION: GENERAL: This is an average-built male, in no apparent distress. VITAL SIGNS: Blood pressure 150/90, pulse of 100 beats per minute and regular, temperature 98, respirations 20. Height is 5 feet 11 inches. Weight is 160 pounds. HEENT: Head is normocephalic. Eyes are anicteric with pink conjunctivae. Funduscopy is not possible at this time. Ears, nose, and throat otherwise normal. NECK: Supple. Thyroid gland is normal size. No carotid bruits or cervical adenopathy. CARDIOPULMONARY: Some adynamic precordium. S1 and S2, rapid and regular. LUNGS: Clear to auscultation. ABDOMEN: Flat, soft with positive bowel sounds. EXTREMITIES: No peripheral edema. Pulses are +2 bilaterally. LABORATORY DATA: His initial chemistries showed a BUN of 39, sodium 133, potassium 6.2, chloride 99, CO2 is 14, glucose is 884, and creatinine is 2.5. His subsequent glucose levels dropped to 59 mg/dL early this morning at 5 o'clock, and the latest glucose now is 182 mg/dL. ASSESSMENT: This is a 72-year-old male with uncontrolled and decompensated type 2 insulin-requiring diabetes with extremes of glycemic fluctuations from marked hyperglycemic acceleration, presenting here with hyperosmolar hyperglycemic state and mild ketosis with supervening marked hypoglycemic episodes with associated neuroglycopenic and hyperadrenergic manifestations in the same day. He also has diabetic microvascular complications of retinopathy, polyneuropathy and nephropathy with progressive renal insufficiency and advanced azotemia. Moreover, he has diabetic macrovascular complications of coronary artery disease and peripheral arterial disease and vasculopathy. PLAN OF MANAGEMENT: As discussed with the patient and the staff, we will modify his current insulin regimen and switch him over to a much lower sliding scale coverage using NovoLog insulin with coverage only above 300 mg/dL. We will start him on a very low dose of a prandial insulin with NovoLog given as 4 units only subcu t.i.d. before meals and will titrate incrementally as indicated to optimize metabolic control. We will also add basal insulin overnight with Lantus to be given as 10 units to start tonight as ordered. We will obtain serial chemistries and supplement accordingly as needed. Hemoglobin A1c will be done to confirm his prior glycemic control, and baseline thyroid function studies will be ordered. We will also obtain a lipid panel and a lipase level as ordered. We will obtain a parathyroid hormone intact level to screen for underlying secondary hyperparathyroidism. We will follow and advise accordingly. Myrna Sheffield MD
[2017-10-07] MEDS: (Novolog) Insulin Aspart, Recombinant 100 u/ml 10 ml vial SC SCH ×6 (07:28→21:59)
[2017-10-07] MEDS: Multivitamin Vitamin B Complex (Nephro-Vite) Tab PO SCH (08:13)
--- NOTE | 2017-10-07 10:38 | PN ---
DATE: 10/07/2017 SUBJECTIVE: I saw him resting comfortably in bed this morning. He is feeling much better. No chest pain or shortness of breath. No abdominal pain. His legs are okay, he is able to walk to the bathroom. He tells me he is comfortable. No lightheadedness. PHYSICAL EXAMINATION: VITAL SIGNS: He has 98 temperature, 62 pulse, 126/71 blood pressure, 20 respiratory rate, 100% O2 sat on room air. HEAD: His head is atraumatic, normocephalic. GENERAL: He is alert and talking comfortable. HEENT: Throat is moist. NECK: Supple. HEART: Regular rate. LUNGS: Decreased breath sounds, but clear. ABDOMEN: Soft, nontender. Positive bowel sounds. EXTREMITIES: No edema. MEDICATIONS: He is currently on Apresoline, Crestor, Ecotrin, Feosol, Flomax, Nephro-Lis, Norvasc, NovoLog, Pepcid, Rocaltrol, Senokot, sodium bicarbonate, Tylenol, he is off the dextrose. LABORATORY DATA: He has a white count of 4.5, hemoglobin 9.2, hematocrit 27.9, platelets 218. He has a 147 sodium, potassium 4.4, BUN is 36, creatinine 2.3 a little bit better than when he came in. GFR is up at 28, sugar is 83, 59, 64, and down to 36. Magnesium is 1.7, total bili is 0.5, AST is 40, ALT is 22, alk phos 179, total protein is 6.8. Urine has some tox positive for opiates. PLAN: We will continue with Endocrinology and Renal eval, checking his labs, physical therapy. Continue with the present treatment and care on a very fragile diabetic. Zohaib Morgan DO MTDGeoffrey
[2017-10-07] MEDS ORDERED: Epoetin Alfa 4000 UNIT/ML Inj SC SCH (10:45)
[2017-10-07 11:42] LABS: HEMOGLOBIN 9.4 g/dL (12.0-18.0); MEAN CELL VOLUME 81.2 fL (80.0-94.0); MEAN CORPUSCULAR HEMOGLOBIN 26.4 pg (27.0-31.0); MEAN CORPUSCULAR HGB CONC 32.5 g/dL (33.0-37.0); MEAN PLATELET VOLUME 9.2 fL (7.2-11.7); RBC 3.56 Mil/uL (4.40-5.90); RED CELL DISTRIBUTION WIDTH 17.7 % (11.5-14.5); WHITE BLOOD COUNT 4.6 K/uL (4.8-10.8)
[2017-10-07 11:53] LABS: HDL CHOLESTEROL 43 mg/dL (30-70)
[2017-10-07 11:58] LABS: ALB/GLOB RATIO 0.9 (1.0-2.1); ALBUMIN 2.8 g/dL (3.5-5.0); CALCIUM 7.9 mg/dl (8.6-10.4); LIPASE < 10 U/L (23-300)
[2017-10-07 12:04] LABS: LDL CHOLESTEROL 37 mg/dL (0-129)
--- NOTE | 2017-10-07 12:38 | CP.PCM.PN ---
Subjective - Date & Time of Evaluation Date of Evaluation: 10/07/17 Time of Evaluation: 12:38 - Subjective Subjective: Nephrology Consultation Note: Assessment: stable Acute Kidney Injury (N17.9) likely hemodynamic: improved Uncontrolled diabetes mellitus with hypoglycemia and hyperosmolar hyperglycemic state Diabetic chronic Kidney Disease (E11.22) Hypertensive Chronic Kidney Disease (I12.9) Chronic Kidney Disease (N18.3) Stage 3 with 580 mg proteinuria (R80.9) likely due to DM Anemia (D64.9), Vit D def with Secondary Hyperparathyroidism (E21.1), HTN (I12.9 ) BPH, diabetic neuropathy, chronic pancreatitis on opiates gastric ulcer, hx of etoh and smoking in past Plan No acute need for renal replacement therapy at this time. Hypertension control with meds as ordered. Patient not on ACEI/ARB due to KHALIDA Tendency and hyperkalemia. resume hydralazine, and norvasc. considering his hypoglycemic episodes, will try to avoid Beta-blockers Monitor Input/Output, daily weights and renal function with basic metabolic panel Patient supposed to be on [place] at home every day, continue at d/c resume lyrica for diabetic neuropathy. d/c neurontin At home pt on sodium bicarbonate 650 mg 2 times a day, iron 325 mg 3 times a day , multivitamin once a day, Flomax 0.4 mg once a day, calcitriol 0.25 g once a day: resume consider PPI as pt with hx of gastric ulcer endocrine eval added epogen for anemia Dose meds/antibiotics for reduced GFR. Avoid fleets enema/magnesium based laxatives. Avoid nephrotoxins/NSAIDs/ iodinated contrast (unless needed emergently) Glycemic control Further work up/management as per primary team Thanks for allowing me to participate in care of your patient. Will follow patient with you. Please call if any Qs. had d/w team Dr Juan Diego Light Office: [phone] reason for consult: KHALIDA, CKD HPI:Pt is a 71 M with hx of uncontrolled diabetes Mellitus ( 30 years) [ endocrine Dr Matson as outpt] with retinopathy, hypertension (15-20 years), CKD 3 (baseline cr 2.0 range), s/p Right total hip replacement, gout, chronic pancreatitis on chronic opiates as morphine, gastric ulcer (EGD jan 2017) with hiatal hernia Presented to the hospital With Hyperglycemia Renal consult for kidney disease management pt has uncontrolled DM with sugars ranging from 20 to 500+ he had recent Multiple hospitalizations for DKA/hyperglycemia and hypoglycemia ROS: feels better now. denies CP/SOB. denies nausea and upper abdomen pain. rest all other negative except as mentioned in HPI Physical Examination: General Appearance: in no acute respiratory distress, co-operative Vitals reviewed and noted as below Head; Atraumatic, normocephalic ENT: no ulcers no thrush. Tongue is midline. Oropharynx: no rash or ulcers. EYES: Pupils are equal, round and reactive to light accommodation. Eye muscles and extraocular movement intact. Sclera is anicteric. Neck; supple no lymphadenopathy, no thyromegaly or bruit Lungs: Normal respiratory rate/effort. Breath sounds bilateral equal and clear Heart: Normal rate. s1s2 normal. No rub or gallop. Extremities: trace edema. No varicose veins Neurological: Patient is AO x 3 no focal deficit Skin: Warm and dry. Normal turgor. No rash. Palpitation: Normal elasticity for age Abdomen: Abdomen is soft. Bowel sounds +. There is no abdominal tenderness, no guarding/rigidity no organomegaly Psych: normal affect/mood and good insight MSK: no joint tenderness or swelling. Digits and nails normal, no deformity : kidney or bladder not palpable Labs/imaging reviewed. Past medical history, past surgical history, family history, social history, allergy reviewed and noted as below Family hx: no hx of CKD. Rest non-contributory Work up: jan 2017: a1c 8.5 urine proc/cr 724 Ua 30 pr no blood 04/04/2017: Na 140 K 6 Bicarb 17 BUN/Cr 35/2.2 (GFR 38%) PTH 881 Vit D <13 Hb 11.3 06/11/2017: SPEP neg [place]/lambda ratio normal although faint free lambda in JANI albumin 4.2 TSH 2.3 A1c 9.6% LDL 41 Hb 12.1 9% Ferritin 28 folate >20 B12 >1000 PTH 902 Phos 4.7 Vit D <13 Na 135 K 5.5 Bicarb 19 Ca 9.2 BUN/Cr 40/2.0 (GFR 42) UA 30 protein 500 glucose no blood pr/cr ratio 587 mg/gr creat as outpt leg art doppler/JENNYFER: WNL, renal sono 7 mm cyst and aortic sono: no aneursym Objective - Vital Signs/Intake and Output Vital Signs (last 24 hours): Temp Pulse Resp BP Pulse Ox 98.4 F 63 20 136/71 100 10/07/17 07:50 10/07/17 07:50 10/07/17 07:50 10/07/17 07:50 10/07/17 07:50 Intake and Output: 10/07/17 10/07/17 06:59 18:59 Intake Total 360 Output Total 1920 Balance -1560 - Medications Medications: Current Medications Acetaminophen (Tylenol 325mg Tab) 650 mg PO Q6 PRN PRN Reason: Pain, moderate (4-7) Last Admin: 10/07/17 11:48 Dose: 650 mg Amlodipine Besylate (Norvasc) 10 mg PO DAILY [facility] Last Admin: 10/07/17 09:14 Dose: 10 mg Aspirin (Ecotrin) 81 mg PO DAILY [facility] Last Admin: 10/07/17 09:14 Dose: 81 mg Calcitriol (Rocaltrol) 0.25 mcg PO DAILY [facility] Last Admin: 10/07/17 09:14 Dose: 0.25 mcg Epoetin Killian (Procrit) 8,000 unit SC TTS [facility] Last Admin: 10/07/17 11:48 Dose: 8,000 unit Famotidine (Pepcid) 20 mg PO DAILY [facility] Ferrous Sulfate (Feosol) 325 mg PO BID [facility] Last Admin: 10/07/17 09:13 Dose: 325 mg Heparin Sodium (Porcine) (Heparin) 5,000 units SC Q12 [facility] Last Admin: 10/07/17 09:14 Dose: 5,000 units Hydralazine HCl (Apresoline) 100 mg PO Q8 [facility] Last Admin: 10/07/17 05:10 Dose: 100 mg Insulin Aspart (Novolog) 0 unit SC ACHS [facility] Last Admin: 10/07/17 11:48 Dose: 5 unit Insulin Aspart (Novolog) 8 unit SC AC [facility] Last Admin: 10/07/17 12:11 Dose: 8 unit Insulin Glargine (Lantus) 12 unit SC HS [facility] Pregabalin (Lyrica) 75 mg PO BID [facility] Last Admin: 10/07/17 09:13 Dose: 75 mg Rosuvastatin Calcium (Crestor) 5 mg PO HS [facility] Last Admin: 10/06/17 21:34 Dose: 5 mg Senna/Docusate Sodium (Senokot S 50 Mg-8.6 Mg) 1 tab PO BID PRN PRN Reason: Constipation Sodium Bicarbonate (Sodium Bicarbonate Tab) 650 mg PO BID [facility] Last Admin: 10/07/17 09:13 Dose: 650 mg Tamsulosin HCl (Flomax) 0.4 mg PO DAILY [facility] Last Admin: 10/07/17 09:14 Dose: 0.4 mg Vitamin B Complex/Vit C/Folic Acid (Nephro-Lis) 1 tab PO 0800 [facility] Last Admin: 10/07/17 08:13 Dose: 1 tab - Labs Labs: 10/07/17 11:28 10/07/17 11:28 PT 12.7 SECONDS (9.7-12.2) H 10/05/17 23:28 INR 1.2 10/05/17 23:28 APTT 33 SECONDS (21-34) 10/05/17 23:28
[2017-10-07] MEDS ORDERED: (Lantus) Insulin Glargine, Recombinant SC SCH (22:00)
[2017-10-08 07:51] LABS: HEMOGLOBIN 10.8 g/dL (12.0-18.0); MEAN CELL VOLUME 80.8 fL (80.0-94.0); MEAN CORPUSCULAR HEMOGLOBIN 26.3 pg (27.0-31.0); MEAN CORPUSCULAR HGB CONC 32.6 g/dL (33.0-37.0); RBC 4.12 Mil/uL (4.40-5.90); RED CELL DISTRIBUTION WIDTH 17.8 % (11.5-14.5)
[2017-10-08 08:04] LABS: ALB/GLOB RATIO 0.9 (1.0-2.1); CALCIUM 8.9 mg/dl (8.6-10.4)
--- NOTE | 2017-10-08 08:12 | PN ---
DATE: 10/07/2017 LOCATION: Room 557. SUBJECTIVE: This is 72-year-old male with recent uncontrolled type 2 insulin requiring diabetes, presenting here with extremes of glycemic fluctuations and initially with hyperosmolar hyperglycemic state and dehydration and is now being followed closely for metabolic management. With the variability of his oral intake, he has developed episodic bouts of symptomatic hypoglycemia as noted there of. However, today hyperglycemic accelerations have supervened and the glucose values have ranged from 418 to 447 mg/dL. His latest bedtime glucose now is 281 mg/dL. His hemoglobin A1c is 12.7% as noted. This is indicative of extremely suboptimal outpatient metabolic control of his diabetic condition despite these insulin therapy as given. LABORATORY DATA: His latest chemistries showed BUN of 25, sodium 135, potassium 4.7, chloride 105, CO2 of 20, glucose 360 and creatinine 1.8. TSH is 2.75. ASSESSMENT: This is 72-year-old male with uncontrolled and decompensated type 2 insulin requiring diabetes with extremes of glycemic fluctuations presenting here with hyperosmolar hyperglycemic state with dehydration and supervening symptomatic hypoglycemia with associated neuroglycopenic and hyperadrenergic manifestations related to a suboptimal oral intake with variable meal portions as noted. Moreover, he also is very poor insulin regimen, given on outpatient with supervening hyperglycemic accelerations as noted there of and a concomitant markedly elevated A1c levels as mentioned. Also diabetic microvascular complications of retinopathy, polyneuropathy and nephropathy with diabetic macrovascular complications of coronary artery disease and peripheral atrial disease and vasculopathy. PLAN: Plan of management as discussed with the patient and the staff, will modify once again his basal and bolus insulin regimen and restart and increase the NovoLog to 12 units subcu t.i.d. before meals as ordered. We will also increase the Lantus to 20 units subcu at bedtime daily to start tomorrow night as given. He will be given only Lantus 12 units at bedtime tonight as noted. We will obtain serial chemistries and supplement according as needed. We also continue the low dose correction scale using Novolin insulin as ordered. We will obtain serial chemistries and continue the IV hydration as given. We will follow. Myrna Sheffield MD [facility] # [id number]
[2017-10-08] MEDS: (Novolog) Insulin Aspart, Recombinant 100 u/ml 10 ml vial SC SCH ×7 (08:25→21:33)
[2017-10-08] MEDS: Multivitamin Vitamin B Complex (Nephro-Vite) Tab PO SCH (08:51)
--- NOTE | 2017-10-08 11:24 | PN ---
DATE: 10/08/2017 SUBJECTIVE: I saw him resting comfortably in bed this morning. He slept well last night. It is one of the better days I have seen him. He is doing better. His blood sugars are down to 281, 319, and 353; much better than the 800 and the 400s he has been with. Endocrinology has been addressing his insulin. PHYSICAL EXAMINATION: VITAL SIGNS: He has 98.3 temperature, 83 pulse, 157/75 blood pressure, 20 respiratory rate, 97% up to 100% O2 sat on room air. HEAD: His head is atraumatic, normocephalic. HEART: Regular rate. LUNGS: Decreased breath sounds, but clear. ABDOMEN: Soft. EXTREMITIES: No edema. GENERAL: He is alert, comfortable, walks to the bathroom, in good spirits. MEDICATIONS: He is currently on Apresoline, Crestor, Ecotrin, Feosol, Flomax, heparin, Lantus 20 units subcutaneous at night, Lyrica, Nephro-Lis, Norvasc, Novolin 8 units subcutaneous before meals scheduled, Pepcid, Procrit, Rocaltrol, Senokot, sodium bicarbonate, Tylenol. LABORATORY DATA: He has a 135 sodium, potassium 4.7, BUN is down to 25, creatinine is down to 1.8, GFR is 37. His blood sugar was 353. Alk phos 143. He has got a white count of 4.6, hemoglobin 9.4, hematocrit 29, platelets 202. ASSESSMENT AND PLAN: There is a very possibility he might be able to be discharged even later today or tomorrow. His hemoglobin A1c is 12.7. He is definitely noncompliant diabetic when he is home. He always comes into the hospital saying he has no medication for diabetes and now he is on medications with the right prescriptions. I just do not think he takes them. I will discuss with Dr. Sheffield, desizing machine operator head end. His blood tests are good this morning, his blood sugars are improving. We will try and get him up today versus tomorrow unless there is more adjustment of the insulin. He has had 4 admissions in about 3 weeks with the blood sugars out of control. Zohaib Morgan DO
[2017-10-08] MEDS ORDERED: Sodium Chloride 0.45% 1,000 ML IV SCH (14:30)
--- NOTE | 2017-10-08 16:46 | CP.PCM.PN ---
Subjective - Date & Time of Evaluation Date of Evaluation: 10/08/17 Time of Evaluation: 16:45 - Subjective Subjective: Nephrology Consultation Note: Assessment: stable Acute Kidney Injury (N17.9) likely hemodynamic: improved Uncontrolled diabetes mellitus with hypoglycemia and hyperosmolar hyperglycemic state Diabetic chronic Kidney Disease (E11.22) Hypertensive Chronic Kidney Disease (I12.9) Chronic Kidney Disease (N18.3) Stage 3 with 580 mg proteinuria (R80.9) likely due to DM Anemia (D64.9), Vit D def with Secondary Hyperparathyroidism (E21.1), HTN (I12.9 ) BPH, diabetic neuropathy, chronic pancreatitis on opiates gastric ulcer, hx of etoh and smoking in past Plan No acute need for renal replacement therapy at this time. Hypertension control with meds as ordered. Patient not on ACEI/ARB due to KHALIDA Tendency and hyperkalemia. resume hydralazine, and norvasc. considering his hypoglycemic episodes, will try to avoid Beta-blockers Monitor Input/Output, daily weights and renal function with basic metabolic panel Patient supposed to be on [place] at home every day, continue at d/c resume lyrica for diabetic neuropathy. d/c neurontin At home pt on sodium bicarbonate 650 mg 2 times a day, iron 325 mg 3 times a day , multivitamin once a day, Flomax 0.4 mg once a day, calcitriol 0.25 g once a day: resume consider PPI as pt with hx of gastric ulcer endocrine eval added epogen for anemia Dose meds/antibiotics for reduced GFR. Avoid fleets enema/magnesium based laxatives. Avoid nephrotoxins/NSAIDs/ iodinated contrast (unless needed emergently) Glycemic control Further work up/management as per primary team pt stable for d/c from renal perspective Thanks for allowing me to participate in care of your patient. Will follow patient with you. Please call if any Qs. had d/w team Dr Juan Diego Light Office: [phone] reason for consult: KHALIDA, CKD HPI:Pt is a 71 M with hx of uncontrolled diabetes Mellitus ( 30 years) [ endocrine Dr Matson as outpt] with retinopathy, hypertension (15-20 years), CKD 3 (baseline cr 2.0 range), s/p Right total hip replacement, gout, chronic pancreatitis on chronic opiates as morphine, gastric ulcer (EGD jan 2017) with hiatal hernia Presented to the hospital With Hyperglycemia Renal consult for kidney disease management pt has uncontrolled DM with sugars ranging from 20 to 500+ he had recent Multiple hospitalizations for DKA/hyperglycemia and hypoglycemia ROS: feels better now. denies CP/SOB. denies nausea and upper abdomen pain. rest all other negative except as mentioned in HPI he says I need to leave tomorrow Physical Examination: General Appearance: in no acute respiratory distress, co-operative Vitals reviewed and noted as below Head; Atraumatic, normocephalic ENT: no ulcers no thrush. Tongue is midline. Oropharynx: no rash or ulcers. EYES: Pupils are equal, round and reactive to light accommodation. Eye muscles and extraocular movement intact. Sclera is anicteric. Neck; supple no lymphadenopathy, no thyromegaly or bruit Lungs: Normal respiratory rate/effort. Breath sounds bilateral equal and clear Heart: Normal rate. s1s2 normal. No rub or gallop. Extremities: trace edema. No varicose veins Neurological: Patient is AO x 3 no focal deficit Skin: Warm and dry. Normal turgor. No rash. Palpitation: Normal elasticity for age Abdomen: Abdomen is soft. Bowel sounds +. There is no abdominal tenderness, no guarding/rigidity no organomegaly Psych: normal affect/mood and good insight MSK: no joint tenderness or swelling. Digits and nails normal, no deformity : kidney or bladder not palpable Labs/imaging reviewed. Past medical history, past surgical history, family history, social history, allergy reviewed and noted as below Family hx: no hx of CKD. Rest non-contributory Work up: jan 2017: a1c 8.5 urine proc/cr 724 Ua 30 pr no blood 04/04/2017: Na 140 K 6 Bicarb 17 BUN/Cr 35/2.2 (GFR 38%) PTH 881 Vit D <13 Hb 11.3 06/11/2017: SPEP neg [place]/lambda ratio normal although faint free lambda in JANI albumin 4.2 TSH 2.3 A1c 9.6% LDL 41 Hb 12.1 9% Ferritin 28 folate >20 B12 >1000 PTH 902 Phos 4.7 Vit D <13 Na 135 K 5.5 Bicarb 19 Ca 9.2 BUN/Cr 40/2.0 (GFR 42) UA 30 protein 500 glucose no blood pr/cr ratio 587 mg/gr creat as outpt leg art doppler/JENNYFER: WNL, renal sono 7 mm cyst and aortic sono: no aneursym Objective Objective - Vital Signs/Intake and Output Vital Signs (last 24 hours): Temp Pulse Resp BP Pulse Ox 98.6 F 101 H 20 132/72 98 10/08/17 15:40 10/08/17 15:40 10/08/17 15:40 10/08/17 15:40 10/08/17 15:40 Intake and Output: 10/08/17 10/08/17 06:59 18:59 Intake Total 340 Output Total 250 Balance 90 - Medications Medications: Current Medications Acetaminophen (Tylenol 325mg Tab) 650 mg PO Q6 PRN PRN Reason: Pain, moderate (4-7) Last Admin: 10/08/17 00:11 Dose: 650 mg Amlodipine Besylate (Norvasc) 10 mg PO DAILY [facility] Last Admin: 10/08/17 09:52 Dose: 10 mg Aspirin (Ecotrin) 81 mg PO DAILY [facility] Last Admin: 10/08/17 12:07 Dose: 81 mg Calcitriol (Rocaltrol) 0.25 mcg PO DAILY [facility] Last Admin: 10/08/17 09:52 Dose: 0.25 mcg Epoetin Killian (Procrit) 8,000 unit SC TTS [facility] Last Admin: 10/07/17 11:48 Dose: 8,000 unit Famotidine (Pepcid) 20 mg PO DAILY [facility] Last Admin: 10/08/17 09:52 Dose: 20 mg Ferrous Sulfate (Feosol) 325 mg PO BID [facility] Last Admin: 10/08/17 09:52 Dose: 325 mg Heparin Sodium (Porcine) (Heparin) 5,000 units SC Q12 [facility] Last Admin: 10/08/17 09:54 Dose: 5,000 units Hydralazine HCl (Apresoline) 100 mg PO Q8 [facility] Last Admin: 10/08/17 13:24 Dose: 100 mg Sodium Chloride (Sodium Chloride 0.45%) 1,000 mls @ 100 mls/hr IV .Q10H [facility] Insulin Aspart (Novolog) 0 unit SC ACHS [facility] Last Admin: 10/08/17 12:20 Dose: 3 unit Insulin Aspart (Novolog) 14 unit SC AC [facility] Insulin Glargine (Lantus) 24 unit SC [facility] Pregabalin (Lyrica) 75 mg PO BID [facility] Last Admin: 10/08/17 09:52 Dose: 75 mg Rosuvastatin Calcium (Crestor) 5 mg PO HS [facility] Last Admin: 10/07/17 21:33 Dose: 5 mg Senna/Docusate Sodium (Senokot S 50 Mg-8.6 Mg) 1 tab PO BID PRN PRN Reason: Constipation Sodium Bicarbonate (Sodium Bicarbonate Tab) 650 mg PO BID [facility] Last Admin: 10/08/17 09:55 Dose: 650 mg Tamsulosin HCl (Flomax) 0.4 mg PO DAILY [facility] Last Admin: 10/08/17 09:55 Dose: 0.4 mg Vitamin B Complex/Vit C/Folic Acid (Nephro-Lis) 1 tab PO 0800 [facility] Last Admin: 10/08/17 08:51 Dose: 1 tab - Labs Labs: 10/08/17 07:41 10/08/17 07:41 PT 12.7 SECONDS (9.7-12.2) H 10/05/17 23:28 INR 1.2 10/05/17 23:28 APTT 33 SECONDS (21-34) 10/05/17 23:28
[2017-10-08] MEDS ORDERED: (Novolog) Insulin Aspart, Recombinant 100 u/ml 10 ml vial SC ONE (18:00)
[2017-10-08] MEDS ORDERED: (Lantus) Insulin Glargine, Recombinant SC SCH ×2 (22:00)
--- NOTE | 2017-10-08 22:23 | PN ---
DATE: 10/08/2017 LOCATION: Room 557. SUBJECTIVE: This is a 72-year-old male with recent uncontrolled type 2 insulin requiring diabetes with extreme subglycemic fluctuation with variability of his oral intake as noted there of. His glucose levels today were extremely elevated this morning ranging from 319 to 353 and 331 mg/dL; however, the glucose at dinner time was 77 mg/dL. LABORATORY DATA: The latest chemistry showed a BUN of 25, sodium 135, potassium 4.6, chloride 106, CO2 18, glucose 323 and creatinine 1.7. ASSESSMENT AND PLAN: So at that time, we will modify once again his basal and bolus insulin regimen and increase the Novolog to 14 units subcu t.i.d. before meals to start today as ordered. We will also titrate his Lantus to 24 units subcu at bedtime daily to start tonight. We would obtain serial chemistries and supplement accordingly as needed. We will also continue the low dose correction scale using NovoLog insulin as given to obviate hypoglycemia. We will obtain serial chemistries and supplement accordingly as needed. We will follow with you. Myrna Sheffield MD
[2017-10-09 07:58] VITALS: BP 139/75; PULSE 79; TEMP 98.4; O2SAT 100
[2017-10-09] MEDS: Multivitamin Vitamin B Complex (Nephro-Vite) Tab PO SCH (08:10)
[2017-10-09] MEDS: (Novolog) Insulin Aspart, Recombinant 100 u/ml 10 ml vial SC SCH ×3 (08:28→11:30)
[2017-10-09 08:53] LABS: HEMOGLOBIN 10.6 g/dL (12.0-18.0); MEAN CELL VOLUME 80.3 fL (80.0-94.0); MEAN CORPUSCULAR HEMOGLOBIN 26.5 pg (27.0-31.0); MEAN PLATELET VOLUME 8.3 fL (7.2-11.7); RBC 4.01 Mil/uL (4.40-5.90); RED CELL DISTRIBUTION WIDTH 17.4 % (11.5-14.5); WHITE BLOOD COUNT 4.6 K/uL (4.8-10.8)
[2017-10-09 09:09] LABS: ALB/GLOB RATIO 0.9 (1.0-2.1); ALBUMIN 3.1 g/dL (3.5-5.0); ALT/SGPT 22 U/L (21-72); AST/SGOT 34 U/L (17-59); BLOOD UREA NITROGEN 16 mg/dL (9-20); CALCIUM 8.9 mg/dl (8.6-10.4); GFR AFRICAN-AMERICAN > 60; GFR NON-AFRICAN AMERICAN 50
[2017-10-09] MEDS ORDERED: (Novolog) Insulin Aspart, Recombinant 100 u/ml 10 ml vial SC SCH (11:26)
[2017-10-09] MEDS ORDERED: (Novolog) Insulin Aspart, Recombinant 100 u/ml 10 ml vial SC ONE (12:15)
--- NOTE | 2017-10-09 12:44 | CP.PCM.PN ---
Subjective - Date & Time of Evaluation Date of Evaluation: 10/09/17 Time of Evaluation: 12:43 - Subjective Subjective: Nephrology Consultation Note: Assessment: stable Acute Kidney Injury (N17.9) likely hemodynamic: improved Uncontrolled diabetes mellitus with hypoglycemia and hyperosmolar hyperglycemic state Diabetic chronic Kidney Disease (E11.22) Hypertensive Chronic Kidney Disease (I12.9) Chronic Kidney Disease (N18.3) Stage 3 with 580 mg proteinuria (R80.9) likely due to DM Anemia (D64.9), Vit D def with Secondary Hyperparathyroidism (E21.1), HTN (I12.9 ) BPH, diabetic neuropathy, chronic pancreatitis on opiates gastric ulcer, hx of etoh and smoking in past Plan No acute need for renal replacement therapy at this time. Hypertension control with meds as ordered. Patient not on ACEI/ARB due to KHALIDA Tendency and hyperkalemia. resume hydralazine, and norvasc. considering his hypoglycemic episodes, will try to avoid Beta-blockers Monitor Input/Output, daily weights and renal function with basic metabolic panel Patient supposed to be on [place] at home every day, continue at d/c resume lyrica for diabetic neuropathy. d/c neurontin At home pt on sodium bicarbonate 650 mg 2 times a day, iron 325 mg 3 times a day , multivitamin once a day, Flomax 0.4 mg once a day, calcitriol 0.25 g once a day: resume consider PPI as pt with hx of gastric ulcer endocrine eval appreciated d/c epogen as Hb 10.6 Dose meds/antibiotics for reduced GFR. Avoid fleets enema/magnesium based laxatives. Avoid nephrotoxins/NSAIDs/ iodinated contrast (unless needed emergently) Glycemic control Further work up/management as per primary team pt stable for d/c from renal perspective Thanks for allowing me to participate in care of your patient. Will follow patient with you. Please call if any Qs. had d/w team Dr Juan Diego Light Office: [phone] reason for consult: KHALIDA, CKD HPI:Pt is a 71 M with hx of uncontrolled diabetes Mellitus ( 30 years) [ endocrine Dr Matson as outpt] with retinopathy, hypertension (15-20 years), CKD 3 (baseline cr 2.0 range), s/p Right total hip replacement, gout, chronic pancreatitis on chronic opiates as morphine, gastric ulcer (EGD jan 2017) with hiatal hernia Presented to the hospital With Hyperglycemia Renal consult for kidney disease management pt has uncontrolled DM with sugars ranging from 20 to 500+ he had recent Multiple hospitalizations for DKA/hyperglycemia and hypoglycemia ROS: feels better now. denies CP/SOB. denies nausea and upper abdomen pain. rest all other negative except as mentioned in HPI Physical Examination: General Appearance: in no acute respiratory distress, co-operative Vitals reviewed and noted as below Head; Atraumatic, normocephalic ENT: no ulcers no thrush. Tongue is midline. Oropharynx: no rash or ulcers. EYES: Pupils are equal, round and reactive to light accommodation. Eye muscles and extraocular movement intact. Sclera is anicteric. Neck; supple no lymphadenopathy, no thyromegaly or bruit Lungs: Normal respiratory rate/effort. Breath sounds bilateral equal and clear Heart: Normal rate. s1s2 normal. No rub or gallop. Extremities: no edema. No varicose veins Neurological: Patient is AO x 3 no focal deficit Skin: Warm and dry. Normal turgor. No rash. Palpitation: Normal elasticity for age Abdomen: Abdomen is soft. Bowel sounds +. There is no abdominal tenderness, no guarding/rigidity no organomegaly Psych: normal affect/mood and good insight MSK: no joint tenderness or swelling. Digits and nails normal, no deformity : kidney or bladder not palpable Labs/imaging reviewed. Past medical history, past surgical history, family history, social history, allergy reviewed and noted as below Family hx: no hx of CKD. Rest non-contributory Work up: jan 2017: a1c 8.5 urine proc/cr 724 Ua 30 pr no blood 04/04/2017: Na 140 K 6 Bicarb 17 BUN/Cr 35/2.2 (GFR 38%) PTH 881 Vit D <13 Hb 11.3 06/11/2017: SPEP neg [place]/lambda ratio normal although faint free lambda in JANI albumin 4.2 TSH 2.3 A1c 9.6% LDL 41 Hb 12.1 9% Ferritin 28 folate >20 B12 >1000 PTH 902 Phos 4.7 Vit D <13 Na 135 K 5.5 Bicarb 19 Ca 9.2 BUN/Cr 40/2.0 (GFR 42) UA 30 protein 500 glucose no blood pr/cr ratio 587 mg/gr creat as outpt leg art doppler/JENNYFER: WNL, renal sono 7 mm cyst and aortic sono: no aneursym Objective - Vital Signs/Intake and Output Vital Signs (last 24 hours): Temp Pulse Resp BP Pulse Ox 98.4 F 79 20 139/75 100 10/09/17 07:56 10/09/17 07:56 10/09/17 07:56 10/09/17 07:56 10/09/17 07:56 Intake and Output: 10/09/17 10/09/17 06:59 18:59 Intake Total 1880 Balance 1880 - Medications Medications: Current Medications Acetaminophen (Tylenol 325mg Tab) 650 mg PO Q6 PRN PRN Reason: Pain, moderate (4-7) Last Admin: 10/08/17 00:11 Dose: 650 mg Amlodipine Besylate (Norvasc) 10 mg PO DAILY [facility] Last Admin: 10/09/17 10:11 Dose: 10 mg Aspirin (Ecotrin) 81 mg PO DAILY [facility] Last Admin: 10/09/17 10:11 Dose: 81 mg Calcitriol (Rocaltrol) 0.25 mcg PO DAILY [facility] Last Admin: 10/09/17 10:11 Dose: 0.25 mcg Famotidine (Pepcid) 20 mg PO DAILY [facility] Last Admin: 10/09/17 10:12 Dose: 20 mg Ferrous Sulfate (Feosol) 325 mg PO BID [facility] Last Admin: 10/09/17 10:11 Dose: 325 mg Heparin Sodium (Porcine) (Heparin) 5,000 units SC Q12 [facility] Last Admin: 10/09/17 10:12 Dose: 5,000 units Hydralazine HCl (Apresoline) 100 mg PO Q8 [facility] Last Admin: 10/09/17 05:19 Dose: 100 mg Insulin Aspart (Novolog) 0 unit SC ACHS [facility] Last Admin: 10/09/17 08:28 Dose: Not Given Insulin Aspart (Novolog) 6 unit SC AC [facility] Insulin Glargine (Lantus) 12 unit SC HS [facility] Pregabalin (Lyrica) 75 mg PO BID [facility] Last Admin: 10/09/17 10:11 Dose: 75 mg Rosuvastatin Calcium (Crestor) 5 mg PO HS [facility] Last Admin: 10/08/17 21:32 Dose: 5 mg Senna/Docusate Sodium (Senokot S 50 Mg-8.6 Mg) 1 tab PO BID PRN PRN Reason: Constipation Sodium Bicarbonate (Sodium Bicarbonate Tab) 650 mg PO BID [facility] Last Admin: 10/09/17 10:11 Dose: 650 mg Tamsulosin HCl (Flomax) 0.4 mg PO DAILY [facility] Last Admin: 10/09/17 10:11 Dose: 0.4 mg Vitamin B Complex/Vit C/Folic Acid (Nephro-Lis) 1 tab PO 0800 [facility] Last Admin: 10/09/17 08:10 Dose: 1 tab - Labs Labs: 10/09/17 08:43 10/09/17 08:43 PT 12.7 SECONDS (9.7-12.2) H 10/05/17 23:28 INR 1.2 10/05/17 23:28 APTT 33 SECONDS (21-34) 10/05/17 23:28
--- NOTE | 2017-10-09 20:19 | PN ---
DATE: 10/09/2017 LOCATION: Room 557. SUBJECTIVE: This is a 72-year-old male with extremes of glycemic fluctuation and clearly has uncontrolled type 2 insulin requiring diabetes as noted thereof. He also has marked variability with his oral intake as per the nursing staff with supervening hypoglycemic episodes last night as noted. His glucose levels went down to 67 mg at 2 a.m. and it was 99 at bedtime and 81 at 6 o' clock this morning. LABORATORY DATA: Latest chemistry shows a BUN of 16, sodium 134, potassium 3.8, chloride 111, CO2 19, glucose 63 and creatinine 1.4. ASSESSMENT AND PLAN: So, at this time we will recommend once again a modified and much lower insulin dose regimen for eventual discharge today as noted and given. We recommend NovoLog given as 8 units t.i.d. before meals to start today. His glucose actually went as high as 300 by lunch time today as noted. We will also lower the basal insulin with Lantus to be given as 14 units subcu at bedtime daily . Call my office next week for insulin dosage regimen and be the same otherwise. Myrna Sheffield MD
[2017-10-09] MEDS ORDERED: (Lantus) Insulin Glargine, Recombinant SC SCH (22:00)
--- NOTE | 2017-10-10 03:20 | DS ---
I saw him resting comfortably in bed. He slept well. No complaints. He is comfortable, no chest pain or shortness o breath. No abdominal pain. MEDICATIONS: He is on Apresoline, Benadryl, Crestor, Ecotrin, Feosol, Flomax, Lantus, Lyrica, Nephro-Lis, Norvasc, Novolin insulin, Pepcid, Procrit, Rocaltrol, Senokot, sodium bicarbonate, Tylenol. PHYSICAL EXAMINATION: VITAL SIGNS: He has 98.3 temp, 74 pulse, 151/70 blood pressure, 20 respiratory rate, 99% O2 sat in room air. HEENT: Head is atraumatic, normocephalic. HEART: Regular rate. LUNGS: Clear to auscultation. ABDOMEN: Soft, nontender. Positive bowel sounds. EXTREMITIES: No edema. LABORATORY DATA: He has a 4 white count, 10.8 hemoglobin, 32.3 hematocrit with 206 platelets. He has 135 sodium, potassium 4.6, BUN 25, creatinine 1.7, GFR is 40, sugar is 323, then it was 73, 8.9 calcium, total bili is 0.8, AST is 27, ALT is 32, alk phos is 151. He is being seen by Endocrinology and Renal. He has definitely improved. Hopefully, he will follow the directions when he is at home, take the medications and order medicines there is a direct pharmacy for him. I will see him in the office in a week, too high or too low blood pressure. He will call me if anything changes. Noncompliant and blood sugar out of control. chronic heart failure Zohaib Morgan DO MTDGeoffrey
== END 2017-10-09 13:19 | disposition home or self-care (01) | DRG 638 ==
LOC: C.ER 22:55 → C.9E 10-06 02:09 → C.9I 10-06 07:07 → C.9E 10-06 07:14 → C.5S 10-06 08:22
PROVIDERS: ADMIT Family Medicine; ATTEND Family Medicine
DX: E11.00 Type 2 diabetes mellitus with hyperosmolarity without nonketotic hyperglycemic-hyperosmolar coma (NKHHC) (principal); E87.2 Acidosis; I50.30 Unspecified diastolic (congestive) heart failure; K86.1 Other chronic pancreatitis; N17.9 Acute kidney failure, unspecified; N25.81 Secondary hyperparathyroidism of renal origin; I13.0 Hypertensive heart and chronic kidney disease with heart failure and stage 1 through stage 4 chronic kidney disease, or unspecified chronic kidney disease; E11.21 Type 2 diabetes mellitus with diabetic nephropathy; E11.22 Type 2 diabetes mellitus with diabetic chronic kidney disease; E11.319 Type 2 diabetes mellitus with unspecified diabetic retinopathy without macular edema; E11.42 Type 2 diabetes mellitus with diabetic polyneuropathy; E11.51 Type 2 diabetes mellitus with diabetic peripheral angiopathy without gangrene; E11.649 Type 2 diabetes mellitus with hypoglycemia without coma; E78.00 Pure hypercholesterolemia, unspecified; E86.0 Dehydration; E87.5 Hyperkalemia; F10.21 Alcohol dependence, in remission; I25.10 Atherosclerotic heart disease of native coronary artery without angina pectoris; N18.3 Chronic kidney disease, stage 3 (moderate); N40.0 Benign prostatic hyperplasia without lower urinary tract symptoms; W19.XXXA Unspecified fall, initial encounter; Z79.4 Long term (current) use of insulin; Z79.891 Long term (current) use of opiate analgesic; Z87.891 Personal history of nicotine dependence; Z99.2 Dependence on renal dialysis

== ENCOUNTER 2017-10-25 13:56 | Emergency (ER) | payer MEDICARE ==
[2017-10-25 13:56] VITALS: BMI 21.2
[2017-10-25 14:02] VITALS: TEMP 98.6
[2017-10-25 14:36] LABS: SQUAMOUS EPITHIAL 1 /hpf (0-5); URINE BILIRUBIN NEGATIVE (NEGATIVE); URINE BLOOD NEGATIVE (NEGATIVE); URINE CLARITY Clear (Clear); URINE COLOR Yellow (YELLOW); URINE GLUCOSE (UA) 1+ mg/dL (Normal); URINE LEUKOCYTE ESTERASE NEG Leu/uL (Negative); URINE PROTEIN 2+ mg/dL (NEGATIVE); URINE UROBILINOGEN NORMAL mg/dL (0.2-1.0)
--- NOTE | 2017-10-25 15:23 | US ---
Testicular ultrasound History: Scrotal swelling. Comparison: None available. Technique: Real-time sonography was performed through the scrotum. Findings: Prominent diffuse bilateral scrotal skin thickening and edema. Bilateral small scrotal hydroceles. Right testes: 4.0 x 2.4 x 3.2 centimeters. Normal echotexture and flow. Enlarged right epididymis measuring 2.5 x 1.4 x 3.1 centimeters containing a mixed heterogeneous echotexture. Normal flow. Left testes: 4.3 x 2.2 x 3.0 centimeters. Normal flow. Enlarged left epididymis measuring 2.2 x 2.1 x 4.7 centimeters containing a mixed heterogeneous it echotexture. Normal flow. Impression: Prominently enlarged bilateral epididymi as described above with a mixed heterogeneous echotexture. This is of uncertain clinical etiology. Developing epididymitis cannot be excluded. Additionalally epididymal lesions cannot be excluded. Additional etiologies not excluded. Clinical correlation. Small bilateral scrotal hydroceles. Prominent thickening bilaterally of the scrotal skin with associated edema.
[2017-10-25] MEDS ORDERED: cefTRIAXone (Rocephin) 250 mg Inj IM STA (15:35)
--- NOTE | 2017-10-25 16:22 | C.PDOC ---
History Of Present Illness Pt c/o scrotal swelling. He was started on antibiotics by he PMD (Doxycycline and Amoxicillin). Time Seen by Provider: 10/25/17 14:02 Chief Complaint (Nursing): Male Genitourinary History Per: Patient Onset/Duration Of Symptoms: Days (6) Current Symptoms Are (Timing): Still Present Severity: Moderate Quality Of Discomfort: Other (Swelling) Alleviating Factors: None Additional History Per: Prior Records Past Medical History Reviewed: Historical Data, Nursing Documentation, Vital Signs Vital Signs: Last Vital Signs Temp 98.6 F 10/25/17 14:00 Pulse 93 H 10/25/17 14:00 Resp 20 10/25/17 14:00 BP 161/82 H 10/25/17 14:00 Pulse Ox 96 10/25/17 14:00 - Medical History PMH: Anemia, Arthritis, CHF, Diabetes, Gastrointestinal Ulcer, HTN, Hypercholesterolemia, Pancreatitis (CHRONIC), Peripheral Edema, Chronic Kidney Disease Comment Only: Seizures (pt denies) Surgical History: Endoscopy - [facility] Procedures FLORESITA ING HRN REP-GRFT NOS (05/04/14) INSERTION OF INFUSION DEV INTO R FEMOR VEIN, PERC APPROACH (09/15/17) INSERTION OF INFUSION DEVICE INTO UPPER VEIN, PERC APPROACH (09/25/17) INTRODUCE OF OTH THERAP SUBST INTO RESP TRACT, VIA OPENING (08/22/17) Family History: States: Unknown Family Hx - Social History Hx Tobacco Use: No Hx Alcohol Use: No Hx Substance Use: No - Immunization History Hx Tetanus Toxoid Vaccination: No Hx Influenza Vaccination: Yes Hx Pneumococcal Vaccination: No Review Of Systems Except As Marked, All Systems Reviewed And Found Negative. Constitutional: Negative for: Fever, Weakness Cardiovascular: Negative for: Chest Pain Respiratory: Negative for: Shortness of Breath, SOB with Excertion Gastrointestinal: Negative for: Vomiting, Abdominal Pain Genitourinary: Negative for: Dysuria, Penile Discharge Musculoskeletal: Negative for: Neck Pain, Back Pain Skin: Negative for: Rash Neurological: Negative for: Weakness, Numbness Physical Exam - Physical Exam Appears: Non-toxic, No Acute Distress Skin: Normal Color, Warm, Dry Head: Atraumatic, Normacephalic Eye(s): bilateral: Normal Inspection, PERRL, EOMI Neck: Normal ROM, Supple Cardiovascular: Rhythm Regular Respiratory: Normal Breath Sounds, No Accessory Muscle Use Gastrointestinal/Abdominal: Soft, No Tenderness Back: No CVA Tenderness Male Genital: No Testicular Tenderness, Scrotal Swelling Extremity: Normal ROM, Pedal Edema Neurological/Psych: Oriented x3, Normal Motor, Normal Sensation ED Course And Treatment O2 Sat by Pulse Oximetry: 96 Pulse Ox Interpretation: Normal - CT Scan/US Scrotal US Other Rad Studies (CT/US): Read By Radiologist, Radiology Report Reviewed CT/US Interpretation: Impression: Prominently enlarged bilateral epididymi as described above with a mixed heterogeneous echotexture. This is of uncertain clinical etiology. Developing epididymitis cannot be excluded. Additionalally epididymal lesions cannot be excluded. Additional etiologies not excluded. Clinical correlation. Small bilateral scrotal hydroceles. Prominent thickening bilaterally of the scrotal skin with associated edema. Progress Note: Pt was given Rocephin 250mg IM. Disposition Counseled Patient/Family Regarding: Diagnosis, Need For Followup - Disposition Referrals: Jossie Wu MD [Staff Provider] - Disposition: HOME/ ROUTINE Disposition Time: 16:24 Condition: STABLE Additional Instructions: Continue the Doxycycline. Stop taking the Amoxicillin. Follow up with your doctor and with a Urologist for further evaluation and treatment. Return to the ER if you develop fever, abdominal pain, shortness of breath, trouble urinating , worsening of symptoms or if you have any other concerns. Instructions: Epididymitis (DC) Forms: [facility] (Ukrainian), General Discharge Instructions - Clinical Impression Clinical Impression: Edema of scrotum, Epididymal thickening
[2017-10-25 16:32] VITALS: BP 151/85; PULSE 84; RESP 16; O2SAT 98
== END 2017-10-25 16:31 | disposition home or self-care (01) ==
LOC: C.ER 13:56
DX: N50.89 Other specified disorders of the male genital organs (principal)
CPT/HCPCS: 76870; 81001; 87086; 87491; 87591; 96372; 99284; J0696

== ENCOUNTER 2018-01-29 00:43 | Inpatient (IN) | payer MEDICARE ==
[2018-01-29 00:43] VITALS: BMI 18.8
[2018-01-29 01:19] LABS: VENOUS BLOOD GAS BASE EXCESS -21.7 mmol/L (0.0-2.0); VENOUS BLOOD GAS PCO2 49 mmHg (40-60); VENOUS BLOOD GAS PO2 41 mm/Hg (30-55); VENOUS BLOOD PH 6.94 (7.32-7.43)
--- NOTE | 2018-01-29 01:28 | C.PDOC ---
History Of Present Illness 72 year old male with PMHx of diabetes is brought in to the ED by his for evaluation. Patient's states he ran out of his insulin medications and his blood sugar is elevated. On arrival to the ED patient's blood sugar level was greater than 500. Patient denies fever, chills, dizziness, headache, CP, SOB, palpitations. Time Seen by Provider: 01/29/18 00:52 Chief Complaint (Nursing): Abdominal Pain History Per: Patient, Family History/Exam Limitations: no limitations Onset/Duration Of Symptoms: Hrs Current Symptoms Are (Timing): Still Present Context: Other Severity: Severe Pain Scale Rating Of: 7 Radiation Of Pain To:: None Quality Of Discomfort: Aching Associated Symptoms: denies: Fever, Chills, Nausea, Vomiting Exacerbating Factors: None Alleviating Factors: None Recent travel outside of the [place]: No Additional History Per: Patient, Family Past Medical History Reviewed: Historical Data, Nursing Documentation, Vital Signs Vital Signs: Last Vital Signs Temp 98 F 01/29/18 00:44 Pulse 95 H 01/29/18 00:44 Resp 20 01/29/18 00:44 BP 173/97 H 01/29/18 00:44 Pulse Ox 97 01/29/18 02:20 - Medical History PMH: Anemia, Arthritis, CHF, Diabetes, Gastrointestinal Ulcer, HTN, Hypercholesterolemia, Pancreatitis, Peripheral Edema, Chronic Kidney Disease Denies: Deep Vein Thrombosis Comment Only: Seizures (pt denies) Surgical History: Endoscopy Denies: Pacemaker - [facility] Procedures FLORESITA ING HRN REP-GRFT NOS (05/04/14) INSERTION OF INFUSION DEV INTO R FEMOR VEIN, PERC APPROACH (09/15/17) INSERTION OF INFUSION DEV INTO SUP VENA CAVA, PERC APPROACH (12/16/17) INSERTION OF INFUSION DEVICE INTO UPPER VEIN, PERC APPROACH (09/25/17) INTRODUCE OF OTH THERAP SUBST INTO RESP TRACT, VIA OPENING (08/22/17) ULTRASONOGRAPHY OF SUPERIOR VENA CAVA, GUIDANCE (12/16/17) Family History: States: Unknown Family Hx - Social History Hx Tobacco Use: No Hx Alcohol Use: No Hx Substance Use: No - Immunization History Hx Tetanus Toxoid Vaccination: Yes Hx Influenza Vaccination: Yes Hx Pneumococcal Vaccination: Yes Review Of Systems Constitutional: Negative for: Fever, Chills Eyes: Negative for: Vision Change ENT: Negative for: Throat Pain Cardiovascular: Negative for: Chest Pain Respiratory: Negative for: Shortness of Breath Gastrointestinal: Negative for: Nausea, Vomiting Genitourinary: Negative for: Dysuria Musculoskeletal: Negative for: Back Pain Skin: Negative for: Rash Neurological: Negative for: Weakness, Numbness, Headache, Dizziness Psych: Negative for: Anxiety Physical Exam - Physical Exam Appears: Non-toxic Skin: Warm, Dry Head: Normacephalic Eye(s): bilateral: Normal Inspection Oral Mucosa: Dry Throat: No Erythema Neck: Trachea Midline, Supple Chest: Symmetrical Cardiovascular: Rhythm Regular Respiratory: No Rales, No Rhonchi, No Wheezing Gastrointestinal/Abdominal: Soft, No Tenderness, No Guarding, No Rebound Back: Normal Inspection Extremity: No Tenderness, No Swelling Extremity: Bilateral: Atraumatic, Normal Color And Temperature, Normal ROM Pulses: Left Dorsalis Pedis: Normal, Right Dorsalis Pedis: Normal Neurological/Psych: Oriented x3, Normal Speech Gait: Unable To Assess ED Course And Treatment - Laboratory Results Result Diagrams: 01/29/18 01:10 01/29/18 01:10 ECG: Interpreted By Me, Viewed By Me ECG Rhythm: Sinus Rhythm (92), Nonspecific Changes O2 Sat by Pulse Oximetry: 97 (ON RA) Pulse Ox Interpretation: Normal - Radiology CXR: Interpreted by Me, Viewed By Me CXR Interpretation: Yes: Other (unchanged from 10/10). No: Infiltrates, Fracture , Pnemothorax Progress Note: Plan: - VBG. - EKG. - Labs. - Insulin 20 units IVP. - IV fluids. - UA. 2:13AM spoke with dr martinez-burr bench hand - will come and see the pt in the ed Critical Care Time - Critical Care Note Total Time (in mins): 50 Documented critical care: time excludes all time spent performing seperately billable procedures. Disposition Discussed With : Zohaib Morgan Comment: accepted the pt onhis service and took over the care at 2:26AM Doctor Will See Patient In The: ED Counseled Patient/Family Regarding: Studies Performed, Diagnosis - Disposition Disposition: HOSPITALIZED Disposition Time: 00:45 Condition: CRITICAL Forms: [facility] (Persian) - POA Present On Arrival: Poor Glycemic Control - Clinical Impression Clinical Impression: DKA (diabetic ketoacidoses) - Scribe Statement The provider has reviewed the documentation as recorded by the Scribe Provider Attestation: Declan Macario All medical record entries made by the Vivek were at my direction and personally dictated by me. I have reviewed the chart and agree that the record accurately reflects my personal performance of the history, physical exam, medical decision making, and the department course for this patient. I have also personally directed, reviewed, and agree with the discharge instructions and disposition. Decision To Admit - Pt Status Changed To: Hospital Disposition Of: Inpatient - Admit Certification Admit to Inpatient:: After my assessment, the patient will require hospitalization for at least two midnights. This is because of the severity of symptoms shown, intensity of services needed, and/or the medical risk in this patient being treated as an outpatient. - InPatient: Physician Admission Certification:: After my assessment, the patient will require hospitalization for at least two midnights. This is because of the severity of symptoms shown, intensity of services needed, and/or the medical risk in this patient being treated as an outpatient. - . Bed Request Type: ICU Patient Diagnosis: DKA (diabetic ketoacidoses)
[2018-01-29] MEDS ORDERED: Sodium Chloride 0.9% 1,000 ML IV ONE (01:34)
[2018-01-29] MEDS ORDERED: (Novolin R) Insulin Human Regular 100 units/ml vial IV ONE (01:35)
[2018-01-29] MEDS ORDERED: (Novolin R) Insulin Human Regular 100 units/ml vial ONE ×2 (01:50→05:31)
[2018-01-29] MEDS ORDERED: Sodium Chloride 0.9% 1,000 ML ONE (01:50)
[2018-01-29 01:59] LABS: BASO % 0.5 % (0.0-2.0); EOS % 0.2 % (0.0-4.0); HEMOGLOBIN 12.9 g/dL (12.0-18.0); LYMPH # 0.6 K/uL (1.0-4.3); LYMPH % 11.6 % (20.0-40.0); MEAN CELL VOLUME 86.6 fL (80.0-94.0); MEAN CORPUSCULAR HEMOGLOBIN 25.4 pg (27.0-31.0); MEAN CORPUSCULAR HGB CONC 29.4 g/dL (33.0-37.0); MEAN PLATELET VOLUME 9.2 fL (7.2-11.7); MONO # 0.3 K/uL (0.0-0.8); MONO % 5.6 % (0.0-10.0); NEUT # 4.1 K/uL (1.8-7.0); NEUT % 82.1 % (50.0-75.0); NRBC % 0.2 % (0.0-2.0); RBC 5.08 Mil/uL (4.40-5.90)
[2018-01-29 02:12] LABS: ALB/GLOB RATIO 1.2 (1.0-2.1); ALBUMIN 3.8 g/dL (3.5-5.0); CALCIUM 8.9 mg/dl (8.6-10.4)
[2018-01-29 02:14] LABS: SQUAMOUS EPITHIAL < 1 /hpf (0-5); URINE BILIRUBIN NEGATIVE (NEGATIVE); URINE BLOOD NEGATIVE (NEGATIVE); URINE CLARITY Clear (Clear); URINE COLOR Straw (YELLOW); URINE GLUCOSE (UA) 3+ mg/dL (Normal); URINE LEUKOCYTE ESTERASE NEG Leu/uL (Negative); URINE PROTEIN NEGATIVE (NEGATIVE); URINE UROBILINOGEN NORMAL mg/dL (0.2-1.0)
[2018-01-29] MEDS ORDERED: Insulin Human Regular 100 UNIT in Sodium Chloride 0.9% 99 ML IV SCH ×2 (02:30→03:03)
[2018-01-29] MEDS: Sodium Chloride 0.9% 1,000 ML IV ONE ×2 (02:55→04:20)
--- NOTE | 2018-01-29 02:58 | CP.PCM.CON ---
History of Present Illness - History of Present Illness History of Present Illness: Attending: Dr Morgan Reason for Consult: Critical care management Chief complaint: Abdominal pain The Patient was seen and examined in the ED with his present HPI: The hx was obtained from the patient, his and after review of the medical records. This is a 72 years old male came to the ED with 3 days of non- radiating right lower abdominal, associated with diarrhea and nausea both of which have ceased. He refers headache, dizziness but no fever, chills SOB nor dysuria. He has a chronic sacral Ulcer. PMH: Anemia, Arthritis, CHF, DM II; Gastrointestinal Ulcer, HTN, HLD Pancreatitis, Peripheral Edema, Chronic Kidney Disease. Sacral confed[place]; PSH: Right eye cataract surgery; Right Hip Replacement; Hemorrhoidectomy; SH: Former smoker and drinker of Alcohol; No illegal drug use , Live with family FH: Significant for HTN and DM Allergies: NKDA Medication: Reviewed Review of Systems - Constitutional Constitutional: Headache, Weight Loss, Weakness. absent: Anorexia, Chills, Fever - EENT Eyes: Requires Corrective Lenses. absent: Itchy Eyes, Loss of Peripheral Vision , Photophobia Ears: Dizziness. absent: Decreased Hearing, Tinnitus, Abnormal Hearing Nose/Mouth/Throat: absent: Epistaxis, Nasal Congestion, Nasal Discharge, Sinus Pain, Sinus Pressure - Cardiovascular Cardiovascular: absent: Chest Pain, Claudication, Dyspnea - Respiratory Respiratory: Dyspnea. absent: Wheezing, Stridor - Gastrointestinal Gastrointestinal: Abdominal Pain, Nausea - Genitourinary Genitourinary: Dysuria, Flank Pain, Urinary Frequency - Musculoskeletal Musculoskeletal: Arthralgias. absent: Limited Range of Motion, Myalgias - Integumentary Integumentary: Rash. absent: Skin Ulcer, Sores, Striae, Swelling, Wounds - Neurological Neurological: Dizziness, Tingling, Weakness. absent: Sensory Deficit, Syncope - Psychiatric Psychiatric: absent: Anxiety, Depression, Panic Attacks - Endocrine Endocrine: absent: Palpitations, Polydipsia, Polyphagia, Polyuria - Hematologic/Lymphatic Hematologic: absent: Easy Bleeding, Easy Bruising Past Patient History - Infectious Disease Hx of Infectious Diseases: None - Tetanus Immunizations Tetanus Immunization: Unknown - Past Medical History & Family History Past Medical History?: Yes - Past Social History Smoking Status: Former Smoker Chewing Tobacco Use: No Cigar Use: No Alcohol: Other Drugs: Denies Home Situation {Lives}: With Family - CARDIAC Hx Congestive Heart Failure: Yes Hx Hypercholesterolemia: Yes Hx Hypertension: Yes Hx Pacemaker: No Hx Peripheral Edema: Yes - PULMONARY Hx Respiratory Disorders: Yes - NEUROLOGICAL Hx Dizziness: No Hx Seizures: (pt denies) - HEENT Hx HEENT Problems: Yes Hx Cataracts: Yes (BILATERAL) - RENAL Hx Chronic Kidney Disease: Yes - ENDOCRINE/METABOLIC Hx Diabetes Mellitus Type 2: Yes - HEMATOLOGICAL/ONCOLOGICAL Hx Anemia: Yes - INTEGUMENTARY Hx Dermatological Problems: Yes - MUSCULOSKELETAL/RHEUMATOLOGICAL Hx Arthritis: Yes - GASTROINTESTINAL Hx Pancreatitis: Yes - GENITOURINARY/GYNECOLOGICAL Hx Genitourinary Disorders: Yes Hx Prostate Problems: Yes (R TURP for BPH) - PSYCHIATRIC Hx Substance Use: No - SURGICAL HISTORY Hx Mastectomy: No Other/Comment: right hip replacement - ANESTHESIA Hx Anesthesia: Yes Hx Anesthesia Reactions: No Hx Malignant Hyperthermia: No Meds Allergies/Adverse Reactions: Allergies Allergy/AdvReac Type Severity Reaction Status Date / Time No Known Allergies Allergy Verified 01/29/18 00:55 - Medications Medications: Current Medications Insulin Human Regular 100 unit (/ Sodium Chloride) 100 mls @ 4 mls/hr IV .Q24H AVELINA Sodium Chloride (Sodium Chloride 0.9%) 1,000 mls @ 1,000 mls/hr IV .Q1H ONE Stop: 01/29/18 03:24 Physical Exam - Constitutional Appears: No Acute Distress - Head Exam Head Exam: ATRAUMATIC, NORMAL INSPECTION, NORMOCEPHALIC - Eye Exam Eye Exam: EOMI, Normal appearance Pupil Exam: NORMAL ACCOMODATION, PERRL - ENT Exam ENT Exam: Mucous Membranes Moist, Normal Exam - Respiratory Exam Respiratory Exam: Clear to Auscultation Bilateral. absent: Rales, Rhonchi, Wheezes - Cardiovascular Exam Cardiovascular Exam: REGULAR RHYTHM, RRR, +S1, +S2 - GI/Abdominal Exam Additional comments: Flat, Soft mild tenderness at the RLLQ radiatingto the yesy umbilical region, no guarding, no rebound tenderness - Rectal Exam Rectal Exam: Deferred - Extremities Exam Extremities exam: Positive for: calf tenderness - Back Exam Back exam: NORMAL INSPECTION. absent: CVA tenderness (L), CVA tenderness (R) - Neurological Exam Neurological exam: Alert, CN II-XII Intact, Oriented x3, Reflexes Normal - Psychiatric Exam Psychiatric exam: Normal Affect, Normal Mood - Skin Skin Exam: Dry, Intact, Normal Color, Warm Results - Vital Signs Recent Vital Signs: Last Vital Signs Temp 98 F 01/29/18 00:44 Pulse 95 H 01/29/18 00:44 Resp 20 01/29/18 00:44 BP 173/97 H 01/29/18 00:44 Pulse Ox 97 01/29/18 02:27 - Labs Result Diagrams: 01/29/18 01:10 01/29/18 01:10 Labs: Laboratory Results - last 24 hr 01/29/18 01/29/18 01/29/18 00:51 01:10 01:10 WBC 5.0 RBC 5.08 Hgb 12.9 D Hct 44.0 MCV 86.6 D MCH 25.4 L MCHC 29.4 L RDW 20.0 H Plt Count 291 MPV 9.2 Neut % (Auto) 82.1 H Lymph % (Auto) 11.6 L [place] % (Auto) 5.6 Eos % (Auto) 0.2 Baso % (Auto) 0.5 Neut # (Auto) 4.1 Lymph # (Auto) 0.6 L [place] # (Auto) 0.3 Eos # (Auto) 0.0 Baso # (Auto) 0.0 pO2 VBG pH VBG pCO2 VBG HCO3 VBG Total CO2 VBG O2 Sat (Calc) VBG Base Excess Sodium 129 L Chloride 92 L Glucose Lactate Crit Value Called To Crit Value Called By Crit Value Read Back Blood Gas Notified Time Potassium 5.8 H Carbon Dioxide 13 L Anion Gap 30 H BUN 34 H Creatinine 1.9 H Est GFR ( Amer) 43 Est GFR (Non-Af Amer) 35 POC Glucose (mg/dL) > 500 H* Random Glucose 834 H* D Calcium 8.9 Total Bilirubin 0.6 AST 50 ALT 57 Alkaline Phosphatase 424 H D Total Protein 7.1 Albumin 3.8 Globulin 3.2 Albumin/Globulin Ratio 1.2 Urine Color Urine Clarity Urine pH Ur Specific Johnson Urine Protein Urine Glucose (UA) Urine Ketones Urine Blood Urine Nitrate Urine Bilirubin Urine Urobilinogen Ur Leukocyte Esterase Urine WBC (Auto) Urine RBC (Auto) Ur Squamous Epith Cells B-Hydroxybutyrate > 6.00 H 01/29/18 01/29/18 01:10 02:09 WBC RBC Hgb Hct MCV MCH MCHC RDW Plt Count MPV Neut % (Auto) Lymph % (Auto) [place] % (Auto) Eos % (Auto) Baso % (Auto) Neut # (Auto) Lymph # (Auto) [place] # (Auto) Eos # (Auto) Baso # (Auto) pO2 41 VBG pH 6.94 L* VBG pCO2 49 VBG HCO3 6.5 VBG Total CO2 12.0 L VBG O2 Sat (Calc) 58.8 VBG Base Excess -21.7 L Sodium 112.0 L* Chloride 87.0 L Glucose > 750 H* D Lactate 2.0 Crit Value Called To Rena lozano/rn Crit Value Called By Ajay galvan/rt Crit Value Read Back Y Blood Gas Notified Time 120 Potassium Carbon Dioxide Anion Gap BUN Creatinine Est GFR ( Amer) Est GFR (Non-Af Amer) POC Glucose (mg/dL) Random Glucose Calcium Total Bilirubin AST ALT Alkaline Phosphatase Total Protein Albumin Globulin Albumin/Globulin Ratio Urine Color Straw Urine Clarity Clear Urine pH 5.0 Ur Specific Johnson 1.018 Urine Protein Negative Urine Glucose (UA) 3+ H Urine Ketones 1+ H Urine Blood Negative Urine Nitrate Negative Urine Bilirubin Negative Urine Urobilinogen Normal Ur Leukocyte Esterase Neg Urine WBC (Auto) < 1 Urine RBC (Auto) < 1 Ur Squamous Epith Cells < 1 B-Hydroxybutyrate - Imaging and Cardiology Chest x-ray Status: Image reviewed by me Additional comment: No infiltrate Assessment & Plan - Assessment and Plan (Free Text) Assessment: #. DM II with DKA #. Hyperkalemia #. HTN #. Diabetic neuropathy #. Sacral Ulcer Plan: 72 years old male came to the ED with 3 days of non-radiating right lower abdominal, associated with diarrhea and nausea both of which have ceased. He refers headache, dizziness but no fever, chills SOB nor dysuria. He has a chronic sacral Ulcer. #. DM II with DKA - Consult Dr Sheffield Endocrinology - 2 liters of NS Given in the ED - Continue IV fluids, NS at 250/hr. Change to D5/NS when Blood Glucose falls below 250mg/d/ - Regular Insulin IV as per DKA protocol - Accucheck Q1H and BMP Q 4H #. Hyperkalemia because of the hyperglycemia. - Treat Hyperglycemia - Follow Electrolytes #. HTN - Apresoline - Amlodipine #. Diabetic neuropathy - Neurontin #. Sacral Ulcer - Consult Wound Care Nurse #. DVT Prophylaxis with Lovenox #. Code Status: Ful - Date & Time Date: 01/29/18 Time: 02:58
[2018-01-29 05:07] LABS: ABG ALLEN TEST POS; ARTERIAL BLOOD GAS HCO3 18.7 mmol/L (21-28); ARTERIAL BLOOD GAS HEMOGLOBIN 11.2 g/dL (11.7-17.4); ARTERIAL BLOOD GAS O2 SAT 98.1 % (95-98); ARTERIAL BLOOD GAS PCO2 29 mm/Hg (35-45); ARTERIAL BLOOD GAS PH 7.36 (7.35-7.45); ARTERIAL BLOOD GAS PO2 103 mm/Hg (80-100); ARTERIAL BLOOD GAS TCO2 17.3 mmol/L (22-28)
[2018-01-29 06:13] LABS: CALCIUM 8.7 mg/dl (8.6-10.4)
[2018-01-29] MEDS: (Novolin R) Insulin Human Regular 100 units/ml vial SC SCH ×8 (08:06→16:10)
[2018-01-29] MEDS: Multiple Vitamins Tab PO SCH (09:21)
[2018-01-29] MEDS: Pantoprazole 40 mg EC Tab PO SCH (09:21)
[2018-01-29] MEDS: Enoxaparin 30 mg Syringe SC SCH (09:22)
--- NOTE | 2018-01-29 10:20 | RAD ---
Chest x-ray single frontal view History: Diabetic. Comparison: 10/06/2017 Findings: Mild venous congestion. Tortuous ectatic aorta. Top normal heart size. Degenerative changes in the spine and shoulders. Deformity of the left proximal humerus with associated loose osteochondral bodies. Impression: Mild venous congestion. Tortuous ectatic aorta. Top normal heart size. Degenerative changes in the spine and shoulders. Deformity of the left proximal humerus with associated loose osteochondral bodies.
--- NOTE | 2018-01-29 11:49 | RAD ---
Date of service: 01/29/2018 HISTORY: PICC Insertion COMPARISON: January 29, 2018. Time of the most recent examination: 01:12. FINDINGS: LUNGS: No active pulmonary disease. PLEURA: No significant pleural effusion identified, no pneumothorax apparent. CARDIOVASCULAR: No radiographic findings to suggest acute or significant cardiovascular disease. OSSEOUS STRUCTURES: No significant abnormalities. VISUALIZED UPPER ABDOMEN: Normal. OTHER FINDINGS: PICC line in satisfactory position the tip is 5.3 cm from the cavoatrial junction. IMPRESSION: Satisfactory position of recently placed PICC line. No pneumothorax or other adverse findings identified.
[2018-01-29] MEDS ORDERED: Insulin Detemir 100 units/ml Vial (Levemir) SC ONE (12:30)
[2018-01-29] MEDS: Sodium Chloride 0.45% 1,000 ML IV SCH ×2 (13:16→20:51)
--- NOTE | 2018-01-29 13:48 | CP.CCUPN ---
<Pj Guardado - Last Filed: 01/29/18 14:21> CCU Subjective - Physician Review Subjective (Free Text): Critical care progress note: Patient seen and examined at bedside. No acute events overnight. Patient still complains of mild abdominal pain but no n/v. No other complaints. 12 Point ROS performed and neg other than stated above. CCU Objective - Vital Signs / Intake & Output Intake and Output (Last 8hrs): Intake & Output 01/28/18 01/29/18 01/29/18 22:59 06:59 14:59 Weight 1125 lb 115 lb 1.301 oz Other: Voiding Method Urinal - Physical Exam Head: Positive for: Atraumatic, Normocephalic Pupils: Positive for: PERRL Extroacular Muscles: Positive for: EOMI Mouth: Positive for: Moist Mucous Membranes Neck: Positive for: Normal Range of Motion Respiratory/Chest: Positive for: Clear to Auscultation, Good Air Exchange. Negative for: Respiratory Distress, Accessory Muscle Use, Wheezes, Rales Cardiovascular: Positive for: Regular Rate and Rhythm, Normal S1, S2. Negative for: Murmurs Abdomen: Positive for: Normal Bowel Sounds. Negative for: Tenderness, Distention Upper Extremity: Positive for: Normal Inspection. Negative for: Cyanosis, Edema Lower Extremity: Negative for: Edema, CALF TENDERNESS Neurological: Positive for: GCS=15, CN II-XII Intact, Speech Normal Skin: Positive for: Warm, Dry Psychiatric: Positive for: Alert, Oriented x 3 - Medications Active Medications: Active Medications Generic Name Dose Route Start Last Admin Trade Name Freq PRN Reason Stop Dose Admin Amlodipine Besylate 10 mg 01/29/18 10:00 01/29/18 09:24 Norvasc PO 10 mg DAILY AVELINA Administration Aspirin 81 mg 01/29/18 10:01/29/18 09:21 Ecotrin PO 81 mg DAILY AVELINA Administration Enoxaparin Sodium 30 mg 01/29/18 10:00 01/29/18 09:22 Lovenox SC 30 mg DAILY AVELINA Administration Ferrous Sulfate 325 mg 01/29/18 10:00 01/29/18 09:21 Feosol PO 325 mg BID AVELINA Administration Gabapentin 100 mg 01/29/18 10:00 01/29/18 09:21 Neurontin PO 100 mg TID AVELINA Administration Hydralazine HCl 50 mg 01/29/18 10:00 01/29/18 09:21 Apresoline PO 50 mg BID AVELINA Administration Insulin Human Regular 100 unit 100 mls @ 4 mls/hr 01/29/18 03:03 / Sodium Chloride IV .Q24H AVELINA Protocol Sodium Chloride 1,000 mls @ 125 mls/hr 01/29/18 12:30 01/29/18 13:16 Sodium Chloride 0.45% IV 125 mls/hr .Q8H AVELINA Administration Insulin Aspart 6 unit 01/29/18 16:30 Novolog SC AC AVELINA Insulin Human Regular 0 unit 01/29/18 08:00 01/29/18 13:14 Novolin R SC 4 units Q1 AVELINA Administration Protocol Multivitamins 1 tab 01/29/18 10:00 01/29/18 09:21 Hexavitamin PO 1 tab DAILY AVELINA Administration Pantoprazole Sodium 40 mg 01/29/18 10:00 01/29/18 09:21 Protonix Ec Tab PO 40 mg DAILY AVELINA Administration Pregabalin 75 mg 01/29/18 10:00 01/29/18 09:22 Lyrica PO 75 mg BID AVELINA Administration Rosuvastatin Calcium 5 mg 01/29/18 22:00 Crestor PO HS AVELINA Tamsulosin HCl 0.4 mg 01/29/18 10:00 01/29/18 09:21 Flomax PO 0.4 mg DAILY AVELINA Administration - Patient Studies Lab Studies: Lab Studies 01/29/18 01/29/18 01/29/18 Range/Units 13:06 11:59 11:15 WBC (4.8-10.8) K/uL RBC (4.40-5.90) Mil/uL Hgb (12.0-18.0) g/dL Hct (35.0-51.0) % MCV (80.0-94.0) fL MCH (27.0-31.0) pg MCHC (33.0-37.0) g/dL RDW (11.5-14.5) % Plt Count (130-400) K/uL MPV (7.2-11.7) fL Neut % (Auto) (50.0-75.0) % Lymph % (Auto) (20.0-40.0) % [place] % (Auto) (0.0-10.0) % Eos % (Auto) (0.0-4.0) % Baso % (Auto) (0.0-2.0) % Neut # (Auto) (1.8-7.0) K/uL Lymph # (Auto) (1.0-4.3) K/uL [place] # (Auto) (0.0-0.8) K/uL Eos # (Auto) (0.0-0.7) K/uL Baso # (Auto) (0.0-0.2) K/uL Puncture Site pCO2 (35-45) mm/Hg pO2 (30-55) mm/Hg HCO3 (21-28) mmol/L ABG pH (7.35-7.45) ABG Total CO2 (22-28) mmol/L ABG O2 Saturation (95-98) % ABG Base Excess (-2.0-3.0) mmol/L ABG Hemoglobin (11.7-17.4) g/dL ABG Carboxyhemoglobin (0.5-1.5) % POC ABG HHb (Measured) (0.0-5.0) % ABG Methemoglobin (0.0-3.0) % [place] Test VBG pH (7.32-7.43) VBG pCO2 (40-60) mmHg VBG HCO3 mmol/L VBG Total CO2 (22-28) mmol/L VBG O2 Sat (Calc) (40-65) % VBG Base Excess (0.0-2.0) mmol/L A-a O2 Difference mm/Hg Respiratory Index Hgb O2 Saturation (95.0-98.0) % Sodium (132-148) mmol/l Chloride (98-107) mmol/L Glucose (75-110) mg/dl Lactate (0.7-2.1) mmol/L Vent Mode FiO2 % Crit Value Called To Crit Value Called By Crit Value Read Back Blood Gas Notified Time Potassium (3.6-5.2) mmol/L Carbon Dioxide (22-30) mmol/L Anion Gap (10-20) BUN (9-20) mg/dL Creatinine (0.8-1.5) mg/dL Est GFR ( Amer) Est GFR (Non-Af Amer) POC Glucose (mg/dL) 301 H 233 H 223 H (65-110) mg/dL Random Glucose (75-110) mg/dL Calcium (8.6-10.4) mg/dl Phosphorus (2.5-4.5) mg/dL Magnesium (1.6-2.3) mg/dL Total Bilirubin (0.2-1.3) mg/dL AST (17-59) U/L ALT (21-72) U/L Alkaline Phosphatase (38-126) U/L Total Protein (6.3-8.3) g/dL Albumin (3.5-5.0) g/dL Globulin (2.2-3.9) gm/dL Albumin/Globulin Ratio (1.0-2.1) Urine Color (YELLOW) Urine Clarity (Clear) Urine pH (5.0-8.0) Ur Specific [place] (1.003-1.030) Urine Protein (NEGATIVE) mg/dL Urine Glucose (UA) (Normal) mg/dL Urine Ketones (NEGATIVE) mg/dL Urine Blood (NEGATIVE) Urine Nitrate (NEGATIVE) Urine Bilirubin (NEGATIVE) Urine Urobilinogen (0.2-1.0) mg/dL Ur Leukocyte Esterase (Negative) Anant/uL Urine WBC (Auto) (0-5) /hpf Urine RBC (Auto) (0-3) /hpf Ur Squamous Epith Cells (0-5) /hpf B-Hydroxybutyrate (0.02-0.27) mM 01/29/18 01/29/18 01/29/18 Range/Units 10:06 09:05 08:01 WBC (4.8-10.8) K/uL RBC (4.40-5.90) Mil/uL Hgb (12.0-18.0) g/dL Hct (35.0-51.0) % MCV (80.0-94.0) fL MCH (27.0-31.0) pg MCHC (33.0-37.0) g/dL RDW (11.5-14.5) % Plt Count (130-400) K/uL MPV (7.2-11.7) fL Neut % (Auto) (50.0-75.0) % Lymph % (Auto) (20.0-40.0) % [place] % (Auto) (0.0-10.0) % Eos % (Auto) (0.0-4.0) % Baso % (Auto) (0.0-2.0) % Neut # (Auto) (1.8-7.0) K/uL Lymph # (Auto) (1.0-4.3) K/uL [place] # (Auto) (0.0-0.8) K/uL Eos # (Auto) (0.0-0.7) K/uL Baso # (Auto) (0.0-0.2) K/uL Puncture Site pCO2 (35-45) mm/Hg pO2 (30-55) mm/Hg HCO3 (21-28) mmol/L ABG pH (7.35-7.45) ABG Total CO2 (22-28) mmol/L ABG O2 Saturation (95-98) % ABG Base Excess (-2.0-3.0) mmol/L ABG Hemoglobin (11.7-17.4) g/dL ABG Carboxyhemoglobin (0.5-1.5) % POC ABG HHb (Measured) (0.0-5.0) % ABG Methemoglobin (0.0-3.0) % [place] Test VBG pH (7.32-7.43) VBG pCO2 (40-60) mmHg VBG HCO3 mmol/L VBG Total CO2 (22-28) mmol/L VBG O2 Sat (Calc) (40-65) % VBG Base Excess (0.0-2.0) mmol/L A-a O2 Difference mm/Hg Respiratory Index Hgb O2 Saturation (95.0-98.0) % Sodium (132-148) mmol/l Chloride (98-107) mmol/L Glucose (75-110) mg/dl Lactate (0.7-2.1) mmol/L Vent Mode FiO2 % Crit Value Called To Crit Value Called By Crit Value Read Back Blood Gas Notified Time Potassium (3.6-5.2) mmol/L Carbon Dioxide (22-30) mmol/L Anion Gap (10-20) BUN (9-20) mg/dL Creatinine (0.8-1.5) mg/dL Est GFR ( Amer) Est GFR (Non-Af Amer) POC Glucose (mg/dL) 188 H 235 H 285 H (65-110) mg/dL Random Glucose (75-110) mg/dL Calcium (8.6-10.4) mg/dl Phosphorus (2.5-4.5) mg/dL Magnesium (1.6-2.3) mg/dL Total Bilirubin (0.2-1.3) mg/dL AST (17-59) U/L ALT (21-72) U/L Alkaline Phosphatase (38-126) U/L Total Protein (6.3-8.3) g/dL Albumin (3.5-5.0) g/dL Globulin (2.2-3.9) gm/dL Albumin/Globulin Ratio (1.0-2.1) Urine Color (YELLOW) Urine Clarity (Clear) Urine pH (5.0-8.0) Ur Specific [place] (1.003-1.030) Urine Protein (NEGATIVE) mg/dL Urine Glucose (UA) (Normal) mg/dL Urine Ketones (NEGATIVE) mg/dL Urine Blood (NEGATIVE) Urine Nitrate (NEGATIVE) Urine Bilirubin (NEGATIVE) Urine Urobilinogen (0.2-1.0) mg/dL Ur Leukocyte Esterase (Negative) Anant/uL Urine WBC (Auto) (0-5) /hpf Urine RBC (Auto) (0-3) /hpf Ur Squamous Epith Cells (0-5) /hpf B-Hydroxybutyrate (0.02-0.27) mM 01/29/18 01/29/18 01/29/18 Range/Units 07:38 06:20 05:18 WBC (4.8-10.8) K/uL RBC (4.40-5.90) Mil/uL Hgb (12.0-18.0) g/dL Hct (35.0-51.0) % MCV (80.0-94.0) fL MCH (27.0-31.0) pg MCHC (33.0-37.0) g/dL RDW (11.5-14.5) % Plt Count (130-400) K/uL MPV (7.2-11.7) fL Neut % (Auto) (50.0-75.0) % Lymph % (Auto) (20.0-40.0) % [place] % (Auto) (0.0-10.0) % Eos % (Auto) (0.0-4.0) % Baso % (Auto) (0.0-2.0) % Neut # (Auto) (1.8-7.0) K/uL Lymph # (Auto) (1.0-4.3) K/uL [place] # (Auto) (0.0-0.8) K/uL Eos # (Auto) (0.0-0.7) K/uL Baso # (Auto) (0.0-0.2) K/uL Puncture Site pCO2 (35-45) mm/Hg pO2 (30-55) mm/Hg HCO3 (21-28) mmol/L ABG pH (7.35-7.45) ABG Total CO2 (22-28) mmol/L ABG O2 Saturation (95-98) % ABG Base Excess (-2.0-3.0) mmol/L ABG Hemoglobin (11.7-17.4) g/dL ABG Carboxyhemoglobin (0.5-1.5) % POC ABG HHb (Measured) (0.0-5.0) % ABG Methemoglobin (0.0-3.0) % [place] Test VBG pH (7.32-7.43) VBG pCO2 (40-60) mmHg VBG HCO3 mmol/L VBG Total CO2 (22-28) mmol/L VBG O2 Sat (Calc) (40-65) % VBG Base Excess (0.0-2.0) mmol/L A-a O2 Difference mm/Hg Respiratory Index Hgb O2 Saturation (95.0-98.0) % Sodium 132 (132-148) mmol/l Chloride 98 (98-107) mmol/L Glucose (75-110) mg/dl Lactate (0.7-2.1) mmol/L Vent Mode FiO2 % Crit Value Called To Crit Value Called By Crit Value Read Back Blood Gas Notified Time Potassium 4.7 (3.6-5.2) mmol/L Carbon Dioxide 18 L (22-30) mmol/L Anion Gap 21 H (10-20) BUN 34 H (9-20) mg/dL Creatinine 1.7 H (0.8-1.5) mg/dL Est GFR ( Amer) 48 Est GFR (Non-Af Amer) 40 POC Glucose (mg/dL) 364 H 432 H* (65-110) mg/dL Random Glucose 537 H* D (75-110) mg/dL Calcium 8.7 (8.6-10.4) mg/dl Phosphorus 3.6 (2.5-4.5) mg/dL Magnesium 1.4 L (1.6-2.3) mg/dL Total Bilirubin (0.2-1.3) mg/dL AST (17-59) U/L ALT (21-72) U/L Alkaline Phosphatase (38-126) U/L Total Protein (6.3-8.3) g/dL Albumin (3.5-5.0) g/dL Globulin (2.2-3.9) gm/dL Albumin/Globulin Ratio (1.0-2.1) Urine Color (YELLOW) Urine Clarity (Clear) Urine pH (5.0-8.0) Ur Specific [place] (1.003-1.030) Urine Protein (NEGATIVE) mg/dL Urine Glucose (UA) (Normal) mg/dL Urine Ketones (NEGATIVE) mg/dL Urine Blood (NEGATIVE) Urine Nitrate (NEGATIVE) Urine Bilirubin (NEGATIVE) Urine Urobilinogen (0.2-1.0) mg/dL Ur Leukocyte Esterase (Negative) Anant/uL Urine WBC (Auto) (0-5) /hpf Urine RBC (Auto) (0-3) /hpf Ur Squamous Epith Cells (0-5) /hpf B-Hydroxybutyrate (0.02-0.27) mM 01/29/18 01/29/18 01/29/18 Range/Units 05:00 03:58 02:09 WBC (4.8-10.8) K/uL RBC (4.40-5.90) Mil/uL Hgb (12.0-18.0) g/dL Hct (35.0-51.0) % MCV (80.0-94.0) fL MCH (27.0-31.0) pg MCHC (33.0-37.0) g/dL RDW (11.5-14.5) % Plt Count (130-400) K/uL MPV (7.2-11.7) fL Neut % (Auto) (50.0-75.0) % Lymph % (Auto) (20.0-40.0) % [place] % (Auto) (0.0-10.0) % Eos % (Auto) (0.0-4.0) % Baso % (Auto) (0.0-2.0) % Neut # (Auto) (1.8-7.0) K/uL Lymph # (Auto) (1.0-4.3) K/uL [place] # (Auto) (0.0-0.8) K/uL Eos # (Auto) (0.0-0.7) K/uL Baso # (Auto) (0.0-0.2) K/uL Puncture Site Rr pCO2 29 L (35-45) mm/Hg pO2 103 H (30-55) mm/Hg HCO3 18.7 L (21-28) mmol/L ABG pH 7.36 (7.35-7.45) ABG Total CO2 17.3 L (22-28) mmol/L ABG O2 Saturation 98.1 H (95-98) % ABG Base Excess -7.9 L (-2.0-3.0) mmol/L ABG Hemoglobin 11.2 L (11.7-17.4) g/dL ABG Carboxyhemoglobin 2.4 H (0.5-1.5) % POC ABG HHb (Measured) 1.8 (0.0-5.0) % ABG Methemoglobin 0.9 (0.0-3.0) % [place] Test Pos VBG pH (7.32-7.43) VBG pCO2 (40-60) mmHg VBG HCO3 mmol/L VBG Total CO2 (22-28) mmol/L VBG O2 Sat (Calc) (40-65) % VBG Base Excess (0.0-2.0) mmol/L A-a O2 Difference 10.0 mm/Hg Respiratory Index 0.1 Hgb O2 Saturation 94.9 L (95.0-98.0) % Sodium (132-148) mmol/l Chloride (98-107) mmol/L Glucose (75-110) mg/dl Lactate (0.7-2.1) mmol/L Vent Mode Room air FiO2 21.0 % Crit Value Called To Crit Value Called By Crit Value Read Back Blood Gas Notified Time Potassium (3.6-5.2) mmol/L Carbon Dioxide (22-30) mmol/L Anion Gap (10-20) BUN (9-20) mg/dL Creatinine (0.8-1.5) mg/dL Est GFR ( Amer) Est GFR (Non-Af Amer) POC Glucose (mg/dL) > 500 H* (65-110) mg/dL Random Glucose (75-110) mg/dL Calcium (8.6-10.4) mg/dl Phosphorus (2.5-4.5) mg/dL Magnesium (1.6-2.3) mg/dL Total Bilirubin (0.2-1.3) mg/dL AST (17-59) U/L ALT (21-72) U/L Alkaline Phosphatase (38-126) U/L Total Protein (6.3-8.3) g/dL Albumin (3.5-5.0) g/dL Globulin (2.2-3.9) gm/dL Albumin/Globulin Ratio (1.0-2.1) Urine Color Straw (YELLOW) Urine Clarity Clear (Clear) Urine pH 5.0 (5.0-8.0) Ur Specific [place] 1.018 (1.003-1.030) Urine Protein Negative (NEGATIVE) mg/dL Urine Glucose (UA) 3+ H (Normal) mg/dL Urine Ketones 1+ H (NEGATIVE) mg/dL Urine Blood Negative (NEGATIVE) Urine Nitrate Negative (NEGATIVE) Urine Bilirubin Negative (NEGATIVE) Urine Urobilinogen Normal (0.2-1.0) mg/dL Ur Leukocyte Esterase Neg (Negative) Anant/uL Urine WBC (Auto) < 1 (0-5) /hpf Urine RBC (Auto) < 1 (0-3) /hpf Ur Squamous Epith Cells < 1 (0-5) /hpf B-Hydroxybutyrate (0.02-0.27) mM 01/29/18 01/29/18 01/29/18 Range/Units 01:10 01:10 01:10 WBC 5.0 (4.8-10.8) K/uL RBC 5.08 (4.40-5.90) Mil/uL Hgb 12.9 D (12.0-18.0) g/dL Hct 44.0 (35.0-51.0) % MCV 86.6 D (80.0-94.0) fL MCH 25.4 L (27.0-31.0) pg MCHC 29.4 L (33.0-37.0) g/dL RDW 20.0 H (11.5-14.5) % Plt Count 291 (130-400) K/uL MPV 9.2 (7.2-11.7) fL Neut % (Auto) 82.1 H (50.0-75.0) % Lymph % (Auto) 11.6 L (20.0-40.0) % [place] % (Auto) 5.6 (0.0-10.0) % Eos % (Auto) 0.2 (0.0-4.0) % Baso % (Auto) 0.5 (0.0-2.0) % Neut # (Auto) 4.1 (1.8-7.0) K/uL Lymph # (Auto) 0.6 L (1.0-4.3) K/uL [place] # (Auto) 0.3 (0.0-0.8) K/uL Eos # (Auto) 0.0 (0.0-0.7) K/uL Baso # (Auto) 0.0 (0.0-0.2) K/uL Puncture Site pCO2 (35-45) mm/Hg pO2 41 (30-55) mm/Hg HCO3 (21-28) mmol/L ABG pH (7.35-7.45) ABG Total CO2 (22-28) mmol/L ABG O2 Saturation (95-98) % ABG Base Excess (-2.0-3.0) mmol/L ABG Hemoglobin (11.7-17.4) g/dL ABG Carboxyhemoglobin (0.5-1.5) % POC ABG HHb (Measured) (0.0-5.0) % ABG Methemoglobin (0.0-3.0) % [place] Test VBG pH 6.94 L* (7.32-7.43) VBG pCO2 49 (40-60) mmHg VBG HCO3 6.5 mmol/L VBG Total CO2 12.0 L (22-28) mmol/L VBG O2 Sat (Calc) 58.8 (40-65) % VBG Base Excess -21.7 L (0.0-2.0) mmol/L A-a O2 Difference mm/Hg Respiratory Index Hgb O2 Saturation (95.0-98.0) % Sodium 112.0 L* 129 L (132-148) mmol/l Chloride 87.0 L 92 L (98-107) mmol/L Glucose > 750 H* D (75-110) mg/dl Lactate 2.0 (0.7-2.1) mmol/L Vent Mode FiO2 % Crit Value Called To Rena lozano/rn Crit Value Called By Ajay galvan/rt Crit Value Read Back Y Blood Gas Notified Time 120 Potassium 5.8 H (3.6-5.2) mmol/L Carbon Dioxide 13 L (22-30) mmol/L Anion Gap 30 H (10-20) BUN 34 H (9-20) mg/dL Creatinine 1.9 H (0.8-1.5) mg/dL Est GFR ( Amer) 43 Est GFR (Non-Af Amer) 35 POC Glucose (mg/dL) (65-110) mg/dL Random Glucose 834 H* D (75-110) mg/dL Calcium 8.9 (8.6-10.4) mg/dl Phosphorus (2.5-4.5) mg/dL Magnesium (1.6-2.3) mg/dL Total Bilirubin 0.6 (0.2-1.3) mg/dL AST 50 (17-59) U/L ALT 57 (21-72) U/L Alkaline Phosphatase 424 H D (38-126) U/L Total Protein 7.1 (6.3-8.3) g/dL Albumin 3.8 (3.5-5.0) g/dL Globulin 3.2 (2.2-3.9) gm/dL Albumin/Globulin Ratio 1.2 (1.0-2.1) Urine Color (YELLOW) Urine Clarity (Clear) Urine pH (5.0-8.0) Ur Specific [place] (1.003-1.030) Urine Protein (NEGATIVE) mg/dL Urine Glucose (UA) (Normal) mg/dL Urine Ketones (NEGATIVE) mg/dL Urine Blood (NEGATIVE) Urine Nitrate (NEGATIVE) Urine Bilirubin (NEGATIVE) Urine Urobilinogen (0.2-1.0) mg/dL Ur Leukocyte Esterase (Negative) Anant/uL Urine WBC (Auto) (0-5) /hpf Urine RBC (Auto) (0-3) /hpf Ur Squamous Epith Cells (0-5) /hpf B-Hydroxybutyrate 6.96 H (0.02-0.27) mM 01/29/18 Range/Units 00:51 WBC (4.8-10.8) K/uL RBC (4.40-5.90) Mil/uL Hgb (12.0-18.0) g/dL Hct (35.0-51.0) % MCV (80.0-94.0) fL MCH (27.0-31.0) pg MCHC (33.0-37.0) g/dL RDW (11.5-14.5) % Plt Count (130-400) K/uL MPV (7.2-11.7) fL Neut % (Auto) (50.0-75.0) % Lymph % (Auto) (20.0-40.0) % [place] % (Auto) (0.0-10.0) % Eos % (Auto) (0.0-4.0) % Baso % (Auto) (0.0-2.0) % Neut # (Auto) (1.8-7.0) K/uL Lymph # (Auto) (1.0-4.3) K/uL [place] # (Auto) (0.0-0.8) K/uL Eos # (Auto) (0.0-0.7) K/uL Baso # (Auto) (0.0-0.2) K/uL Puncture Site pCO2 (35-45) mm/Hg pO2 (30-55) mm/Hg HCO3 (21-28) mmol/L ABG pH (7.35-7.45) ABG Total CO2 (22-28) mmol/L ABG O2 Saturation (95-98) % ABG Base Excess (-2.0-3.0) mmol/L ABG Hemoglobin (11.7-17.4) g/dL ABG Carboxyhemoglobin (0.5-1.5) % POC ABG HHb (Measured) (0.0-5.0) % ABG Methemoglobin (0.0-3.0) % [place] Test VBG pH (7.32-7.43) VBG pCO2 (40-60) mmHg VBG HCO3 mmol/L VBG Total CO2 (22-28) mmol/L VBG O2 Sat (Calc) (40-65) % VBG Base Excess (0.0-2.0) mmol/L A-a O2 Difference mm/Hg Respiratory Index Hgb O2 Saturation (95.0-98.0) % Sodium (132-148) mmol/l Chloride (98-107) mmol/L Glucose (75-110) mg/dl Lactate (0.7-2.1) mmol/L Vent Mode FiO2 % Crit Value Called To Crit Value Called By Crit Value Read Back Blood Gas Notified Time Potassium (3.6-5.2) mmol/L Carbon Dioxide (22-30) mmol/L Anion Gap (10-20) BUN (9-20) mg/dL Creatinine (0.8-1.5) mg/dL Est GFR ( Amer) Est GFR (Non-Af Amer) POC Glucose (mg/dL) > 500 H* (65-110) mg/dL Random Glucose (75-110) mg/dL Calcium (8.6-10.4) mg/dl Phosphorus (2.5-4.5) mg/dL Magnesium (1.6-2.3) mg/dL Total Bilirubin (0.2-1.3) mg/dL AST (17-59) U/L ALT (21-72) U/L Alkaline Phosphatase (38-126) U/L Total Protein (6.3-8.3) g/dL Albumin (3.5-5.0) g/dL Globulin (2.2-3.9) gm/dL Albumin/Globulin Ratio (1.0-2.1) Urine Color (YELLOW) Urine Clarity (Clear) Urine pH (5.0-8.0) Ur Specific [place] (1.003-1.030) Urine Protein (NEGATIVE) mg/dL Urine Glucose (UA) (Normal) mg/dL Urine Ketones (NEGATIVE) mg/dL Urine Blood (NEGATIVE) Urine Nitrate (NEGATIVE) Urine Bilirubin (NEGATIVE) Urine Urobilinogen (0.2-1.0) mg/dL Ur Leukocyte Esterase (Negative) Anant/uL Urine WBC (Auto) (0-5) /hpf Urine RBC (Auto) (0-3) /hpf Ur Squamous Epith Cells (0-5) /hpf B-Hydroxybutyrate (0.02-0.27) mM Laboratory Results - last 24 hr 01/29/18 01/29/18 01/29/18 00:51 01:10 01:10 WBC 5.0 RBC 5.08 Hgb 12.9 D Hct 44.0 MCV 86.6 D MCH 25.4 L MCHC 29.4 L RDW 20.0 H Plt Count 291 MPV 9.2 Neut % (Auto) 82.1 H Lymph % (Auto) 11.6 L [place] % (Auto) 5.6 Eos % (Auto) 0.2 Baso % (Auto) 0.5 Neut # (Auto) 4.1 Lymph # (Auto) 0.6 L [place] # (Auto) 0.3 Eos # (Auto) 0.0 Baso # (Auto) 0.0 Puncture Site pCO2 pO2 HCO3 ABG pH ABG Total CO2 ABG O2 Saturation ABG Base Excess ABG Hemoglobin ABG Carboxyhemoglobin POC ABG HHb (Measured) ABG Methemoglobin [place] Test VBG pH VBG pCO2 VBG HCO3 VBG Total CO2 VBG O2 Sat (Calc) VBG Base Excess A-a O2 Difference Respiratory Index Hgb O2 Saturation Sodium 129 L Chloride 92 L Glucose Lactate Vent Mode FiO2 Crit Value Called To Crit Value Called By Crit Value Read Back Blood Gas Notified Time Potassium 5.8 H Carbon Dioxide 13 L Anion Gap 30 H BUN 34 H Creatinine 1.9 H Est GFR ( Amer) 43 Est GFR (Non-Af Amer) 35 POC Glucose (mg/dL) > 500 H* Random Glucose 834 H* D Calcium 8.9 Phosphorus Magnesium Total Bilirubin 0.6 AST 50 ALT 57 Alkaline Phosphatase 424 H D Total Protein 7.1 Albumin 3.8 Globulin 3.2 Albumin/Globulin Ratio 1.2 Urine Color Urine Clarity Urine pH Ur Specific [place] Urine Protein Urine Glucose (UA) Urine Ketones Urine Blood Urine Nitrate Urine Bilirubin Urine Urobilinogen Ur Leukocyte Esterase Urine WBC (Auto) Urine RBC (Auto) Ur Squamous Epith Cells B-Hydroxybutyrate 6.96 H 01/29/18 01/29/18 01/29/18 01:10 02:09 03:58 WBC RBC Hgb Hct MCV MCH MCHC RDW Plt Count MPV Neut % (Auto) Lymph % (Auto) [place] % (Auto) Eos % (Auto) Baso % (Auto) Neut # (Auto) Lymph # (Auto) [place] # (Auto) Eos # (Auto) Baso # (Auto) Puncture Site pCO2 pO2 41 HCO3 ABG pH ABG Total CO2 ABG O2 Saturation ABG Base Excess ABG Hemoglobin ABG Carboxyhemoglobin POC ABG HHb (Measured) ABG Methemoglobin [place] Test VBG pH 6.94 L* VBG pCO2 49 VBG HCO3 6.5 VBG Total CO2 12.0 L VBG O2 Sat (Calc) 58.8 VBG Base Excess -21.7 L A-a O2 Difference Respiratory Index Hgb O2 Saturation Sodium 112.0 L* Chloride 87.0 L Glucose > 750 H* D Lactate 2.0 Vent Mode FiO2 Crit Value Called To Rena lozano/rn Crit Value Called By Ajay galvan/rt Crit Value Read Back Y Blood Gas Notified Time 120 Potassium Carbon Dioxide Anion Gap BUN Creatinine Est GFR ( Amer) Est GFR (Non-Af Amer) POC Glucose (mg/dL) > 500 H* Random Glucose Calcium Phosphorus Magnesium Total Bilirubin AST ALT Alkaline Phosphatase Total Protein Albumin Globulin Albumin/Globulin Ratio Urine Color Straw Urine Clarity Clear Urine pH 5.0 Ur Specific [place] 1.018 Urine Protein Negative Urine Glucose (UA) 3+ H Urine Ketones 1+ H Urine Blood Negative Urine Nitrate Negative Urine Bilirubin Negative Urine Urobilinogen Normal Ur Leukocyte Esterase Neg Urine WBC (Auto) < 1 Urine RBC (Auto) < 1 Ur Squamous Epith Cells < 1 B-Hydroxybutyrate 01/29/18 01/29/18 01/29/18 05:00 05:18 06:20 WBC RBC Hgb Hct MCV MCH MCHC RDW Plt Count MPV Neut % (Auto) Lymph % (Auto) [place] % (Auto) Eos % (Auto) Baso % (Auto) Neut # (Auto) Lymph # (Auto) [place] # (Auto) Eos # (Auto) Baso # (Auto) Puncture Site Rr pCO2 29 L pO2 103 H HCO3 18.7 L ABG pH 7.36 ABG Total CO2 17.3 L ABG O2 Saturation 98.1 H ABG Base Excess -7.9 L ABG Hemoglobin 11.2 L ABG Carboxyhemoglobin 2.4 H POC ABG HHb (Measured) 1.8 ABG Methemoglobin 0.9 [place] Test Pos VBG pH VBG pCO2 VBG HCO3 VBG Total CO2 VBG O2 Sat (Calc) VBG Base Excess A-a O2 Difference 10.0 Respiratory Index 0.1 Hgb O2 Saturation 94.9 L Sodium 132 Chloride 98 Glucose Lactate Vent Mode Room air FiO2 21.0 Crit Value Called To Crit Value Called By Crit Value Read Back Blood Gas Notified Time Potassium 4.7 Carbon Dioxide 18 L Anion Gap 21 H BUN 34 H Creatinine 1.7 H Est GFR ( Amer) 48 Est GFR (Non-Af Amer) 40 POC Glucose (mg/dL) 432 H* Random Glucose 537 H* D Calcium 8.7 Phosphorus 3.6 Magnesium 1.4 L Total Bilirubin AST ALT Alkaline Phosphatase Total Protein Albumin Globulin Albumin/Globulin Ratio Urine Color Urine Clarity Urine pH Ur Specific [place] Urine Protein Urine Glucose (UA) Urine Ketones Urine Blood Urine Nitrate Urine Bilirubin Urine Urobilinogen Ur Leukocyte Esterase Urine WBC (Auto) Urine RBC (Auto) Ur Squamous Epith Cells B-Hydroxybutyrate 01/29/18 01/29/18 01/29/18 07:38 08:01 09:05 WBC RBC Hgb Hct MCV MCH MCHC RDW Plt Count MPV Neut % (Auto) Lymph % (Auto) [place] % (Auto) Eos % (Auto) Baso % (Auto) Neut # (Auto) Lymph # (Auto) [place] # (Auto) Eos # (Auto) Baso # (Auto) Puncture Site pCO2 pO2 HCO3 ABG pH ABG Total CO2 ABG O2 Saturation ABG Base Excess ABG Hemoglobin ABG Carboxyhemoglobin POC ABG HHb (Measured) ABG Methemoglobin [place] Test VBG pH VBG pCO2 VBG HCO3 VBG Total CO2 VBG O2 Sat (Calc) VBG Base Excess A-a O2 Difference Respiratory Index Hgb O2 Saturation Sodium Chloride Glucose Lactate Vent Mode FiO2 Crit Value Called To Crit Value Called By Crit Value Read Back Blood Gas Notified Time Potassium Carbon Dioxide Anion Gap BUN Creatinine Est GFR ( Amer) Est GFR (Non-Af Amer) POC Glucose (mg/dL) 364 H 285 H 235 H Random Glucose Calcium Phosphorus Magnesium Total Bilirubin AST ALT Alkaline Phosphatase Total Protein Albumin Globulin Albumin/Globulin Ratio Urine Color Urine Clarity Urine pH Ur Specific [place] Urine Protein Urine Glucose (UA) Urine Ketones Urine Blood Urine Nitrate Urine Bilirubin Urine Urobilinogen Ur Leukocyte Esterase Urine WBC (Auto) Urine RBC (Auto) Ur Squamous Epith Cells B-Hydroxybutyrate 01/29/18 01/29/18 01/29/18 10:06 11:15 11:59 WBC RBC Hgb Hct MCV MCH MCHC RDW Plt Count MPV Neut % (Auto) Lymph % (Auto) [place] % (Auto) Eos % (Auto) Baso % (Auto) Neut # (Auto) Lymph # (Auto) [place] # (Auto) Eos # (Auto) Baso # (Auto) Puncture Site pCO2 pO2 HCO3 ABG pH ABG Total CO2 ABG O2 Saturation ABG Base Excess ABG Hemoglobin ABG Carboxyhemoglobin POC ABG HHb (Measured) ABG Methemoglobin [place] Test VBG pH VBG pCO2 VBG HCO3 VBG Total CO2 VBG O2 Sat (Calc) VBG Base Excess A-a O2 Difference Respiratory Index Hgb O2 Saturation Sodium Chloride Glucose Lactate Vent Mode FiO2 Crit Value Called To Crit Value Called By Crit Value Read Back Blood Gas Notified Time Potassium Carbon Dioxide Anion Gap BUN Creatinine Est GFR ( Amer) Est GFR (Non-Af Amer) POC Glucose (mg/dL) 188 H 223 H 233 H Random Glucose Calcium Phosphorus Magnesium Total Bilirubin AST ALT Alkaline Phosphatase Total Protein Albumin Globulin Albumin/Globulin Ratio Urine Color Urine Clarity Urine pH Ur Specific [place] Urine Protein Urine Glucose (UA) Urine Ketones Urine Blood Urine Nitrate Urine Bilirubin Urine Urobilinogen Ur Leukocyte Esterase Urine WBC (Auto) Urine RBC (Auto) Ur Squamous Epith Cells B-Hydroxybutyrate 01/29/18 13:06 WBC RBC Hgb Hct MCV MCH MCHC RDW Plt Count MPV Neut % (Auto) Lymph % (Auto) [place] % (Auto) Eos % (Auto) Baso % (Auto) Neut # (Auto) Lymph # (Auto) [place] # (Auto) Eos # (Auto) Baso # (Auto) Puncture Site pCO2 pO2 HCO3 ABG pH ABG Total CO2 ABG O2 Saturation ABG Base Excess ABG Hemoglobin ABG Carboxyhemoglobin POC ABG HHb (Measured) ABG Methemoglobin [place] Test VBG pH VBG pCO2 VBG HCO3 VBG Total CO2 VBG O2 Sat (Calc) VBG Base Excess A-a O2 Difference Respiratory Index Hgb O2 Saturation Sodium Chloride Glucose Lactate Vent Mode FiO2 Crit Value Called To Crit Value Called By Crit Value Read Back Blood Gas Notified Time Potassium Carbon Dioxide Anion Gap BUN Creatinine Est GFR ( Amer) Est GFR (Non-Af Amer) POC Glucose (mg/dL) 301 H Random Glucose Calcium Phosphorus Magnesium Total Bilirubin AST ALT Alkaline Phosphatase Total Protein Albumin Globulin Albumin/Globulin Ratio Urine Color Urine Clarity Urine pH Ur Specific [place] Urine Protein Urine Glucose (UA) Urine Ketones Urine Blood Urine Nitrate Urine Bilirubin Urine Urobilinogen Ur Leukocyte Esterase Urine WBC (Auto) Urine RBC (Auto) Ur Squamous Epith Cells B-Hydroxybutyrate EKG/Cardiology Studies: Cardiology / EKG Studies 01/29/18 00:53 ELECTROCARDIOGRAM Stat Comment: Mode Of Transportation: BED Reason For Exam: Diabetic Fingerstick Blood Sugar Results: 301 Review of Systems - Review of Systems All systems: reviewed and no additional remarkable complaints except (HPI) Critical Care Progress Note - Nutrition Nutrition: Nutrition Category Date Time Status Heart Healthy Diet [DIET] Diets 01/29/18 Breakfast Active Assessment/Plan - Assessment and Plan (Free Text) Assessment: 72 M with pmh of Anemia, Arthritis, CHF, DM II; Gastrointestinal Ulcer, HTN, HLD Pancreatitis, Peripheral Edema, Chronic Kidney Disease presents with abdominal pain found to have DKA. Gap currently closed. Neuro: - Currently stable - AAO 3 - Cont Neurontin and lyrica Pulm: - Stable - Maintain SPO2 greater than 92% - Nasal cannula as needed CV: - Currently hemodynamically stable - Maintain MAP > 65 - Cont Aspirin, Hydralazine, Crestor GI: - Heart healthy diet - Cont GI ppx Renal: -Monitor I and O -replete electrolytes as needed - Cont Flomax Heme: - Monitor H/H - Currently stable - Cont home Feosol Endo: - Currently off of the insulin ggt as anion gap closed currently - Started on levemir 12 BID and novolog 6 before meals - Accuchecks Q4H - Dr Sehffield consulted for recs - Cont 1/2 NS @ 125 - Cont to monitor GI/DVT ppx Case and plan was reviewed and discussed with Dr Santizo. <Joaquin Santizo - Last Filed: 01/29/18 17:57> CCU Objective - Vital Signs / Intake & Output Vital Signs (Last 4 hours): Vital Signs Temp Pulse Resp BP Pulse Ox 01/29/18 17:00 89 22 01/29/18 16:59 89 24 124/83 01/29/18 16:00 98.2 F 94 H 22 98 01/29/18 15:59 92 H 25 H 118/77 01/29/18 15:00 94 H 22 01/29/18 14:59 93 H 21 126/83 01/29/18 14:00 94 H 23 01/29/18 13:59 96 H 22 119/75 Intake and Output (Last 8hrs): Intake & Output 01/29/18 01/29/18 01/29/18 06:59 14:59 22:59 Intake Total 790 615 Output Total 625 200 Balance 165 415 Weight 1125 lb 115 lb 1.301 oz Intake: Intake, IV Amount 250 375 Right PICC 250 375 Oral 540 240 Output: Urine 625 200 Urine, Voided 625 200 Other: Voiding Method Urinal # Voids Urine, Voided 1 1 # Bowel Movements 1 - Medications Active Medications: Active Medications Generic Name Dose Route Start Last Admin Trade Name Freq PRN Reason Stop Dose Admin Amlodipine Besylate 10 mg 01/29/18 10:00 01/29/18 09:24 Norvasc PO 10 mg DAILY AVELINA Administration Aspirin 81 mg 01/29/18 10:00 01/29/18 09:21 Ecotrin PO 81 mg DAILY AVELINA Administration Enoxaparin Sodium 30 mg 01/29/18 10:00 01/29/18 09:22 Lovenox SC 30 mg DAILY AVELINA Administration Ferrous Sulfate 325 mg 01/29/18 10:00 01/29/18 09:21 Feosol PO 325 mg BID AVELINA Administration Gabapentin 100 mg 01/29/18 10:00 01/29/18 14:20 Neurontin PO 100 mg TID AVELINA Administration Hydralazine HCl 50 mg 01/29/18 10:00 01/29/18 09:21 Apresoline PO 50 mg BID AVELINA Administration Sodium Chloride 1,000 mls @ 125 mls/hr 01/29/18 12:30 01/29/18 13:16 Sodium Chloride 0.45% IV 125 mls/hr .Q8H AVELINA Administration Insulin Aspart 6 unit 01/29/18 16:30 01/29/18 16:47 Novolog SC 6 units AC AVELINA Administration Insulin Aspart 0 unit 01/29/18 16:30 01/29/18 16:09 Novolog SC Not Given ACHS AVELINA Insulin Detemir 16 unit 01/29/18 22:00 Levemir SC HS AVELINA Multivitamins 1 tab 01/29/18 10:00 01/29/18 09:21 Hexavitamin PO 1 tab DAILY AVELINA Administration Pantoprazole Sodium 40 mg 01/29/18 10:00 01/29/18 09:21 Protonix Ec Tab PO 40 mg DAILY AVELINA Administration Pregabalin 75 mg 01/29/18 10:00 01/29/18 09:22 Lyrica PO 75 mg BID AVELINA Administration Rosuvastatin Calcium 5 mg 01/29/18 22:00 Crestor PO HS AVELINA Tamsulosin HCl 0.4 mg 01/29/18 10:00 01/29/18 09:21 Flomax PO 0.4 mg DAILY AVELINA Administration - Patient Studies Lab Studies: Lab Studies 01/29/18 01/29/18 01/29/18 Range/Units 17:01 14:03 13:06 WBC (4.8-10.8) K/uL RBC (4.40-5.90) Mil/uL Hgb (12.0-18.0) g/dL Hct (35.0-51.0) % MCV (80.0-94.0) fL MCH (27.0-31.0) pg MCHC (33.0-37.0) g/dL RDW (11.5-14.5) % Plt Count (130-400) K/uL MPV (7.2-11.7) fL Neut % (Auto) (50.0-75.0) % Lymph % (Auto) (20.0-40.0) % [place] % (Auto) (0.0-10.0) % Eos % (Auto) (0.0-4.0) % Baso % (Auto) (0.0-2.0) % Neut # (Auto) (1.8-7.0) K/uL Lymph # (Auto) (1.0-4.3) K/uL [place] # (Auto) (0.0-0.8) K/uL Eos # (Auto) (0.0-0.7) K/uL Baso # (Auto) (0.0-0.2) K/uL Puncture Site pCO2 (35-45) mm/Hg pO2 (30-55) mm/Hg HCO3 (21-28) mmol/L ABG pH (7.35-7.45) ABG Total CO2 (22-28) mmol/L ABG O2 Saturation (95-98) % ABG Base Excess (-2.0-3.0) mmol/L ABG Hemoglobin (11.7-17.4) g/dL ABG Carboxyhemoglobin (0.5-1.5) % POC ABG HHb (Measured) (0.0-5.0) % ABG Methemoglobin (0.0-3.0) % [place] Test VBG pH (7.32-7.43) VBG pCO2 (40-60) mmHg VBG HCO3 mmol/L VBG Total CO2 (22-28) mmol/L VBG O2 Sat (Calc) (40-65) % VBG Base Excess (0.0-2.0) mmol/L A-a O2 Difference mm/Hg Respiratory Index Hgb O2 Saturation (95.0-98.0) % Sodium 132 (132-148) mmol/l Chloride 102 (98-107) mmol/L Glucose (75-110) mg/dl Lactate (0.7-2.1) mmol/L Vent Mode FiO2 % Crit Value Called To Crit Value Called By Crit Value Read Back Blood Gas Notified Time Potassium 4.5 (3.6-5.2) mmol/L Carbon Dioxide 19 L (22-30) mmol/L Anion Gap 16 (10-20) BUN 32 H (9-20) mg/dL Creatinine 1.4 (0.8-1.5) mg/dL Est GFR ( Amer) > 60 Est GFR (Non-Af Amer) 50 POC Glucose (mg/dL) 297 H 301 H (65-110) mg/dL Random Glucose 159 H (75-110) mg/dL Calcium 8.1 L (8.6-10.4) mg/dl Phosphorus (2.5-4.5) mg/dL Magnesium (1.6-2.3) mg/dL Total Bilirubin (0.2-1.3) mg/dL AST (17-59) U/L ALT (21-72) U/L Alkaline Phosphatase (38-126) U/L Total Protein (6.3-8.3) g/dL Albumin (3.5-5.0) g/dL Globulin (2.2-3.9) gm/dL Albumin/Globulin Ratio (1.0-2.1) Urine Color (YELLOW) Urine Clarity (Clear) Urine pH (5.0-8.0) Ur Specific [place] (1.003-1.030) Urine Protein (NEGATIVE) mg/dL Urine Glucose (UA) (Normal) mg/dL Urine Ketones (NEGATIVE) mg/dL Urine Blood (NEGATIVE) Urine Nitrate (NEGATIVE) Urine Bilirubin (NEGATIVE) Urine Urobilinogen (0.2-1.0) mg/dL Ur Leukocyte Esterase (Negative) Anant/uL Urine WBC (Auto) (0-5) /hpf Urine RBC (Auto) (0-3) /hpf Ur Squamous Epith Cells (0-5) /hpf B-Hydroxybutyrate (0.02-0.27) mM 01/29/18 01/29/18 01/29/18 Range/Units 11:59 11:15 10:06 WBC (4.8-10.8) K/uL RBC (4.40-5.90) Mil/uL Hgb (12.0-18.0) g/dL Hct (35.0-51.0) % MCV (80.0-94.0) fL MCH (27.0-31.0) pg MCHC (33.0-37.0) g/dL RDW (11.5-14.5) % Plt Count (130-400) K/uL MPV (7.2-11.7) fL Neut % (Auto) (50.0-75.0) % Lymph % (Auto) (20.0-40.0) % [place] % (Auto) (0.0-10.0) % Eos % (Auto) (0.0-4.0) % Baso % (Auto) (0.0-2.0) % Neut # (Auto) (1.8-7.0) K/uL Lymph # (Auto) (1.0-4.3) K/uL [place] # (Auto) (0.0-0.8) K/uL Eos # (Auto) (0.0-0.7) K/uL Baso # (Auto) (0.0-0.2) K/uL Puncture Site pCO2 (35-45) mm/Hg pO2 (30-55) mm/Hg HCO3 (21-28) mmol/L ABG pH (7.35-7.45) ABG Total CO2 (22-28) mmol/L ABG O2 Saturation (95-98) % ABG Base Excess (-2.0-3.0) mmol/L ABG Hemoglobin (11.7-17.4) g/dL ABG Carboxyhemoglobin (0.5-1.5) % POC ABG HHb (Measured) (0.0-5.0) % ABG Methemoglobin (0.0-3.0) % [place] Test VBG pH (7.32-7.43) VBG pCO2 (40-60) mmHg VBG HCO3 mmol/L VBG Total CO2 (22-28) mmol/L VBG O2 Sat (Calc) (40-65) % VBG Base Excess (0.0-2.0) mmol/L A-a O2 Difference mm/Hg Respiratory Index Hgb O2 Saturation (95.0-98.0) % Sodium (132-148) mmol/l Chloride (98-107) mmol/L Glucose (75-110) mg/dl Lactate (0.7-2.1) mmol/L Vent Mode FiO2 % Crit Value Called To Crit Value Called By Crit Value Read Back Blood Gas Notified Time Potassium (3.6-5.2) mmol/L Carbon Dioxide (22-30) mmol/L Anion Gap (10-20) BUN (9-20) mg/dL Creatinine (0.8-1.5) mg/dL Est GFR ( Amer) Est GFR (Non-Af Amer) POC Glucose (mg/dL) 233 H 223 H 188 H (65-110) mg/dL Random Glucose (75-110) mg/dL Calcium (8.6-10.4) mg/dl Phosphorus (2.5-4.5) mg/dL Magnesium (1.6-2.3) mg/dL Total Bilirubin (0.2-1.3) mg/dL AST (17-59) U/L ALT (21-72) U/L Alkaline Phosphatase (38-126) U/L Total Protein (6.3-8.3) g/dL Albumin (3.5-5.0) g/dL Globulin (2.2-3.9) gm/dL Albumin/Globulin Ratio (1.0-2.1) Urine Color (YELLOW) Urine Clarity (Clear) Urine pH (5.0-8.0) Ur Specific [place] (1.003-1.030) Urine Protein (NEGATIVE) mg/dL Urine Glucose (UA) (Normal) mg/dL Urine Ketones (NEGATIVE) mg/dL Urine Blood (NEGATIVE) Urine Nitrate (NEGATIVE) Urine Bilirubin (NEGATIVE) Urine Urobilinogen (0.2-1.0) mg/dL Ur Leukocyte Esterase (Negative) Anant/uL Urine WBC (Auto) (0-5) /hpf Urine RBC (Auto) (0-3) /hpf Ur Squamous Epith Cells (0-5) /hpf B-Hydroxybutyrate (0.02-0.27) mM 01/29/18 01/29/18 01/29/18 Range/Units 09:05 08:01 07:38 WBC (4.8-10.8) K/uL RBC (4.40-5.90) Mil/uL Hgb (12.0-18.0) g/dL Hct (35.0-51.0) % MCV (80.0-94.0) fL MCH (27.0-31.0) pg MCHC (33.0-37.0) g/dL RDW (11.5-14.5) % Plt Count (130-400) K/uL MPV (7.2-11.7) fL Neut % (Auto) (50.0-75.0) % Lymph % (Auto) (20.0-40.0) % [place] % (Auto) (0.0-10.0) % Eos % (Auto) (0.0-4.0) % Baso % (Auto) (0.0-2.0) % Neut # (Auto) (1.8-7.0) K/uL Lymph # (Auto) (1.0-4.3) K/uL [place] # (Auto) (0.0-0.8) K/uL Eos # (Auto) (0.0-0.7) K/uL Baso # (Auto) (0.0-0.2) K/uL Puncture Site pCO2 (35-45) mm/Hg pO2 (30-55) mm/Hg HCO3 (21-28) mmol/L ABG pH (7.35-7.45) ABG Total CO2 (22-28) mmol/L ABG O2 Saturation (95-98) % ABG Base Excess (-2.0-3.0) mmol/L ABG Hemoglobin (11.7-17.4) g/dL ABG Carboxyhemoglobin (0.5-1.5) % POC ABG HHb (Measured) (0.0-5.0) % ABG Methemoglobin (0.0-3.0) % [place] Test VBG pH (7.32-7.43) VBG pCO2 (40-60) mmHg VBG HCO3 mmol/L VBG Total CO2 (22-28) mmol/L VBG O2 Sat (Calc) (40-65) % VBG Base Excess (0.0-2.0) mmol/L A-a O2 Difference mm/Hg Respiratory Index Hgb O2 Saturation (95.0-98.0) % Sodium (132-148) mmol/l Chloride (98-107) mmol/L Glucose (75-110) mg/dl Lactate (0.7-2.1) mmol/L Vent Mode FiO2 % Crit Value Called To Crit Value Called By Crit Value Read Back Blood Gas Notified Time Potassium (3.6-5.2) mmol/L Carbon Dioxide (22-30) mmol/L Anion Gap (10-20) BUN (9-20) mg/dL Creatinine (0.8-1.5) mg/dL Est GFR ( Amer) Est GFR (Non-Af Amer) POC Glucose (mg/dL) 235 H 285 H 364 H (65-110) mg/dL Random Glucose (75-110) mg/dL Calcium (8.6-10.4) mg/dl Phosphorus (2.5-4.5) mg/dL Magnesium (1.6-2.3) mg/dL Total Bilirubin (0.2-1.3) mg/dL AST (17-59) U/L ALT (21-72) U/L Alkaline Phosphatase (38-126) U/L Total Protein (6.3-8.3) g/dL Albumin (3.5-5.0) g/dL Globulin (2.2-3.9) gm/dL Albumin/Globulin Ratio (1.0-2.1) Urine Color (YELLOW) Urine Clarity (Clear) Urine pH (5.0-8.0) Ur Specific [place] (1.003-1.030) Urine Protein (NEGATIVE) mg/dL Urine Glucose (UA) (Normal) mg/dL Urine Ketones (NEGATIVE) mg/dL Urine Blood (NEGATIVE) Urine Nitrate (NEGATIVE) Urine Bilirubin (NEGATIVE) Urine Urobilinogen (0.2-1.0) mg/dL Ur Leukocyte Esterase (Negative) Anant/uL Urine WBC (Auto) (0-5) /hpf Urine RBC (Auto) (0-3) /hpf Ur Squamous Epith Cells (0-5) /hpf B-Hydroxybutyrate (0.02-0.27) mM 01/29/18 01/29/18 01/29/18 Range/Units 06:20 05:18 05:00 WBC (4.8-10.8) K/uL RBC (4.40-5.90) Mil/uL Hgb (12.0-18.0) g/dL Hct (35.0-51.0) % MCV (80.0-94.0) fL MCH (27.0-31.0) pg MCHC (33.0-37.0) g/dL RDW (11.5-14.5) % Plt Count (130-400) K/uL MPV (7.2-11.7) fL Neut % (Auto) (50.0-75.0) % Lymph % (Auto) (20.0-40.0) % [place] % (Auto) (0.0-10.0) % Eos % (Auto) (0.0-4.0) % Baso % (Auto) (0.0-2.0) % Neut # (Auto) (1.8-7.0) K/uL Lymph # (Auto) (1.0-4.3) K/uL [place] # (Auto) (0.0-0.8) K/uL Eos # (Auto) (0.0-0.7) K/uL Baso # (Auto) (0.0-0.2) K/uL Puncture Site Rr pCO2 29 L (35-45) mm/Hg pO2 103 H (30-55) mm/Hg HCO3 18.7 L (21-28) mmol/L ABG pH 7.36 (7.35-7.45) ABG Total CO2 17.3 L (22-28) mmol/L ABG O2 Saturation 98.1 H (95-98) % ABG Base Excess -7.9 L (-2.0-3.0) mmol/L ABG Hemoglobin 11.2 L (11.7-17.4) g/dL ABG Carboxyhemoglobin 2.4 H (0.5-1.5) % POC ABG HHb (Measured) 1.8 (0.0-5.0) % ABG Methemoglobin 0.9 (0.0-3.0) % [place] Test Pos VBG pH (7.32-7.43) VBG pCO2 (40-60) mmHg VBG HCO3 mmol/L VBG Total CO2 (22-28) mmol/L VBG O2 Sat (Calc) (40-65) % VBG Base Excess (0.0-2.0) mmol/L A-a O2 Difference 10.0 mm/Hg Respiratory Index 0.1 Hgb O2 Saturation 94.9 L (95.0-98.0) % Sodium 132 (132-148) mmol/l Chloride 98 (98-107) mmol/L Glucose (75-110) mg/dl Lactate (0.7-2.1) mmol/L Vent Mode Room air FiO2 21.0 % Crit Value Called To Crit Value Called By Crit Value Read Back Blood Gas Notified Time Potassium 4.7 (3.6-5.2) mmol/L Carbon Dioxide 18 L (22-30) mmol/L Anion Gap 21 H (10-20) BUN 34 H (9-20) mg/dL Creatinine 1.7 H (0.8-1.5) mg/dL Est GFR ( Amer) 48 Est GFR (Non-Af Amer) 40 POC Glucose (mg/dL) 432 H* (65-110) mg/dL Random Glucose 537 H* D (75-110) mg/dL Calcium 8.7 (8.6-10.4) mg/dl Phosphorus 3.6 (2.5-4.5) mg/dL Magnesium 1.4 L (1.6-2.3) mg/dL Total Bilirubin (0.2-1.3) mg/dL AST (17-59) U/L ALT (21-72) U/L Alkaline Phosphatase (38-126) U/L Total Protein (6.3-8.3) g/dL Albumin (3.5-5.0) g/dL Globulin (2.2-3.9) gm/dL Albumin/Globulin Ratio (1.0-2.1) Urine Color (YELLOW) Urine Clarity (Clear) Urine pH (5.0-8.0) Ur Specific [place] (1.003-1.030) Urine Protein (NEGATIVE) mg/dL Urine Glucose (UA) (Normal) mg/dL Urine Ketones (NEGATIVE) mg/dL Urine Blood (NEGATIVE) Urine Nitrate (NEGATIVE) Urine Bilirubin (NEGATIVE) Urine Urobilinogen (0.2-1.0) mg/dL Ur Leukocyte Esterase (Negative) Anant/uL Urine WBC (Auto) (0-5) /hpf Urine RBC (Auto) (0-3) /hpf Ur Squamous Epith Cells (0-5) /hpf B-Hydroxybutyrate (0.02-0.27) mM 01/29/18 01/29/18 01/29/18 Range/Units 03:58 02:09 01:10 WBC (4.8-10.8) K/uL RBC (4.40-5.90) Mil/uL Hgb (12.0-18.0) g/dL Hct (35.0-51.0) % MCV (80.0-94.0) fL MCH (27.0-31.0) pg MCHC (33.0-37.0) g/dL RDW (11.5-14.5) % Plt Count (130-400) K/uL MPV (7.2-11.7) fL Neut % (Auto) (50.0-75.0) % Lymph % (Auto) (20.0-40.0) % [place] % (Auto) (0.0-10.0) % Eos % (Auto) (0.0-4.0) % Baso % (Auto) (0.0-2.0) % Neut # (Auto) (1.8-7.0) K/uL Lymph # (Auto) (1.0-4.3) K/uL [place] # (Auto) (0.0-0.8) K/uL Eos # (Auto) (0.0-0.7) K/uL Baso # (Auto) (0.0-0.2) K/uL Puncture Site pCO2 (35-45) mm/Hg pO2 41 (30-55) mm/Hg HCO3 (21-28) mmol/L ABG pH (7.35-7.45) ABG Total CO2 (22-28) mmol/L ABG O2 Saturation (95-98) % ABG Base Excess (-2.0-3.0) mmol/L ABG Hemoglobin (11.7-17.4) g/dL ABG Carboxyhemoglobin (0.5-1.5) % POC ABG HHb (Measured) (0.0-5.0) % ABG Methemoglobin (0.0-3.0) % [place] Test VBG pH 6.94 L* (7.32-7.43) VBG pCO2 49 (40-60) mmHg VBG HCO3 6.5 mmol/L VBG Total CO2 12.0 L (22-28) mmol/L VBG O2 Sat (Calc) 58.8 (40-65) % VBG Base Excess -21.7 L (0.0-2.0) mmol/L A-a O2 Difference mm/Hg Respiratory Index Hgb O2 Saturation (95.0-98.0) % Sodium 112.0 L* (132-148) mmol/l Chloride 87.0 L (98-107) mmol/L Glucose > 750 H* D (75-110) mg/dl Lactate 2.0 (0.7-2.1) mmol/L Vent Mode FiO2 % Crit Value Called To Rena lozano/rn Crit Value Called By Ajay galvan/rt Crit Value Read Back Y Blood Gas Notified Time 120 Potassium (3.6-5.2) mmol/L Carbon Dioxide (22-30) mmol/L Anion Gap (10-20) BUN (9-20) mg/dL Creatinine (0.8-1.5) mg/dL Est GFR ( Amer) Est GFR (Non-Af Amer) POC Glucose (mg/dL) > 500 H* (65-110) mg/dL Random Glucose (75-110) mg/dL Calcium (8.6-10.4) mg/dl Phosphorus (2.5-4.5) mg/dL Magnesium (1.6-2.3) mg/dL Total Bilirubin (0.2-1.3) mg/dL AST (17-59) U/L ALT (21-72) U/L Alkaline Phosphatase (38-126) U/L Total Protein (6.3-8.3) g/dL Albumin (3.5-5.0) g/dL Globulin (2.2-3.9) gm/dL Albumin/Globulin Ratio (1.0-2.1) Urine Color Straw (YELLOW) Urine Clarity Clear (Clear) Urine pH 5.0 (5.0-8.0) Ur Specific [place] 1.018 (1.003-1.030) Urine Protein Negative (NEGATIVE) mg/dL Urine Glucose (UA) 3+ H (Normal) mg/dL Urine Ketones 1+ H (NEGATIVE) mg/dL Urine Blood Negative (NEGATIVE) Urine Nitrate Negative (NEGATIVE) Urine Bilirubin Negative (NEGATIVE) Urine Urobilinogen Normal (0.2-1.0) mg/dL Ur Leukocyte Esterase Neg (Negative) Anant/uL Urine WBC (Auto) < 1 (0-5) /hpf Urine RBC (Auto) < 1 (0-3) /hpf Ur Squamous Epith Cells < 1 (0-5) /hpf B-Hydroxybutyrate (0.02-0.27) mM 01/29/18 01/29/18 01/29/18 Range/Units 01:10 01:10 00:51 WBC 5.0 (4.8-10.8) K/uL RBC 5.08 (4.40-5.90) Mil/uL Hgb 12.9 D (12.0-18.0) g/dL Hct 44.0 (35.0-51.0) % MCV 86.6 D (80.0-94.0) fL MCH 25.4 L (27.0-31.0) pg MCHC 29.4 L (33.0-37.0) g/dL RDW 20.0 H (11.5-14.5) % Plt Count 291 (130-400) K/uL MPV 9.2 (7.2-11.7) fL Neut % (Auto) 82.1 H (50.0-75.0) % Lymph % (Auto) 11.6 L (20.0-40.0) % [place] % (Auto) 5.6 (0.0-10.0) % Eos % (Auto) 0.2 (0.0-4.0) % Baso % (Auto) 0.5 (0.0-2.0) % Neut # (Auto) 4.1 (1.8-7.0) K/uL Lymph # (Auto) 0.6 L (1.0-4.3) K/uL [place] # (Auto) 0.3 (0.0-0.8) K/uL Eos # (Auto) 0.0 (0.0-0.7) K/uL Baso # (Auto) 0.0 (0.0-0.2) K/uL Puncture Site pCO2 (35-45) mm/Hg pO2 (30-55) mm/Hg HCO3 (21-28) mmol/L ABG pH (7.35-7.45) ABG Total CO2 (22-28) mmol/L ABG O2 Saturation (95-98) % ABG Base Excess (-2.0-3.0) mmol/L ABG Hemoglobin (11.7-17.4) g/dL ABG Carboxyhemoglobin (0.5-1.5) % POC ABG HHb (Measured) (0.0-5.0) % ABG Methemoglobin (0.0-3.0) % [place] Test VBG pH (7.32-7.43) VBG pCO2 (40-60) mmHg VBG HCO3 mmol/L VBG Total CO2 (22-28) mmol/L VBG O2 Sat (Calc) (40-65) % VBG Base Excess (0.0-2.0) mmol/L A-a O2 Difference mm/Hg Respiratory Index Hgb O2 Saturation (95.0-98.0) % Sodium 129 L (132-148) mmol/l Chloride 92 L (98-107) mmol/L Glucose (75-110) mg/dl Lactate (0.7-2.1) mmol/L Vent Mode FiO2 % Crit Value Called To Crit Value Called By Crit Value Read Back Blood Gas Notified Time Potassium 5.8 H (3.6-5.2) mmol/L Carbon Dioxide 13 L (22-30) mmol/L Anion Gap 30 H (10-20) BUN 34 H (9-20) mg/dL Creatinine 1.9 H (0.8-1.5) mg/dL Est GFR ( Amer) 43 Est GFR (Non-Af Amer) 35 POC Glucose (mg/dL) > 500 H* (65-110) mg/dL Random Glucose 834 H* D (75-110) mg/dL Calcium 8.9 (8.6-10.4) mg/dl Phosphorus (2.5-4.5) mg/dL Magnesium (1.6-2.3) mg/dL Total Bilirubin 0.6 (0.2-1.3) mg/dL AST 50 (17-59) U/L ALT 57 (21-72) U/L Alkaline Phosphatase 424 H D (38-126) U/L Total Protein 7.1 (6.3-8.3) g/dL Albumin 3.8 (3.5-5.0) g/dL Globulin 3.2 (2.2-3.9) gm/dL Albumin/Globulin Ratio 1.2 (1.0-2.1) Urine Color (YELLOW) Urine Clarity (Clear) Urine pH (5.0-8.0) Ur Specific [place] (1.003-1.030) Urine Protein (NEGATIVE) mg/dL Urine Glucose (UA) (Normal) mg/dL Urine Ketones (NEGATIVE) mg/dL Urine Blood (NEGATIVE) Urine Nitrate (NEGATIVE) Urine Bilirubin (NEGATIVE) Urine Urobilinogen (0.2-1.0) mg/dL Ur Leukocyte Esterase (Negative) Anant/uL Urine WBC (Auto) (0-5) /hpf Urine RBC (Auto) (0-3) /hpf Ur Squamous Epith Cells (0-5) /hpf B-Hydroxybutyrate 6.96 H (0.02-0.27) mM Laboratory Results - last 24 hr 01/29/18 01/29/18 01/29/18 00:51 01:10 01:10 WBC 5.0 RBC 5.08 Hgb 12.9 D Hct 44.0 MCV 86.6 D MCH 25.4 L MCHC 29.4 L RDW 20.0 H Plt Count 291 MPV 9.2 Neut % (Auto) 82.1 H Lymph % (Auto) 11.6 L [place] % (Auto) 5.6 Eos % (Auto) 0.2 Baso % (Auto) 0.5 Neut # (Auto) 4.1 Lymph # (Auto) 0.6 L [place] # (Auto) 0.3 Eos # (Auto) 0.0 Baso # (Auto) 0.0 Puncture Site pCO2 pO2 HCO3 ABG pH ABG Total CO2 ABG O2 Saturation ABG Base Excess ABG Hemoglobin ABG Carboxyhemoglobin POC ABG HHb (Measured) ABG Methemoglobin [place] Test VBG pH VBG pCO2 VBG HCO3 VBG Total CO2 VBG O2 Sat (Calc) VBG Base Excess A-a O2 Difference Respiratory Index Hgb O2 Saturation Sodium 129 L Chloride 92 L Glucose Lactate Vent Mode FiO2 Crit Value Called To Crit Value Called By Crit Value Read Back Blood Gas Notified Time Potassium 5.8 H Carbon Dioxide 13 L Anion Gap 30 H BUN 34 H Creatinine 1.9 H Est GFR ( Amer) 43 Est GFR (Non-Af Amer) 35 POC Glucose (mg/dL) > 500 H* Random Glucose 834 H* D Calcium 8.9 Phosphorus Magnesium Total Bilirubin 0.6 AST 50 ALT 57 Alkaline Phosphatase 424 H D Total Protein 7.1 Albumin 3.8 Globulin 3.2 Albumin/Globulin Ratio 1.2 Urine Color Urine Clarity Urine pH Ur Specific [place] Urine Protein Urine Glucose (UA) Urine Ketones Urine Blood Urine Nitrate Urine Bilirubin Urine Urobilinogen Ur Leukocyte Esterase Urine WBC (Auto) Urine RBC (Auto) Ur Squamous Epith Cells B-Hydroxybutyrate 6.96 H 01/29/18 01/29/18 01/29/18 01:10 02:09 03:58 WBC RBC Hgb Hct MCV MCH MCHC RDW Plt Count MPV Neut % (Auto) Lymph % (Auto) [place] % (Auto) Eos % (Auto) Baso % (Auto) Neut # (Auto) Lymph # (Auto) [place] # (Auto) Eos # (Auto) Baso # (Auto) Puncture Site pCO2 pO2 41 HCO3 ABG pH ABG Total CO2 ABG O2 Saturation ABG Base Excess ABG Hemoglobin ABG Carboxyhemoglobin POC ABG HHb (Measured) ABG Methemoglobin [place] Test VBG pH 6.94 L* VBG pCO2 49 VBG HCO3 6.5 VBG Total CO2 12.0 L VBG O2 Sat (Calc) 58.8 VBG Base Excess -21.7 L A-a O2 Difference Respiratory Index Hgb O2 Saturation Sodium 112.0 L* Chloride 87.0 L Glucose > 750 H* D Lactate 2.0 Vent Mode FiO2 Crit Value Called To Rena lozano/rn Crit Value Called By Ajay galvan/rt Crit Value Read Back Y Blood Gas Notified Time 120 Potassium Carbon Dioxide Anion Gap BUN Creatinine Est GFR ( Amer) Est GFR (Non-Af Amer) POC Glucose (mg/dL) > 500 H* Random Glucose Calcium Phosphorus Magnesium Total Bilirubin AST ALT Alkaline Phosphatase Total Protein Albumin Globulin Albumin/Globulin Ratio Urine Color Straw Urine Clarity Clear Urine pH 5.0 Ur Specific [place] 1.018 Urine Protein Negative Urine Glucose (UA) 3+ H Urine Ketones 1+ H Urine Blood Negative Urine Nitrate Negative Urine Bilirubin Negative Urine Urobilinogen Normal Ur Leukocyte Esterase Neg Urine WBC (Auto) < 1 Urine RBC (Auto) < 1 Ur Squamous Epith Cells < 1 B-Hydroxybutyrate 01/29/18 01/29/18 01/29/18 05:00 05:18 06:20 WBC RBC Hgb Hct MCV MCH MCHC RDW Plt Count MPV Neut % (Auto) Lymph % (Auto) [place] % (Auto) Eos % (Auto) Baso % (Auto) Neut # (Auto) Lymph # (Auto) [place] # (Auto) Eos # (Auto) Baso # (Auto) Puncture Site Rr pCO2 29 L pO2 103 H HCO3 18.7 L ABG pH 7.36 ABG Total CO2 17.3 L ABG O2 Saturation 98.1 H ABG Base Excess -7.9 L ABG Hemoglobin 11.2 L ABG Carboxyhemoglobin 2.4 H POC ABG HHb (Measured) 1.8 ABG Methemoglobin 0.9 [place] Test Pos VBG pH VBG pCO2 VBG HCO3 VBG Total CO2 VBG O2 Sat (Calc) VBG Base Excess A-a O2 Difference 10.0 Respiratory Index 0.1 Hgb O2 Saturation 94.9 L Sodium 132 Chloride 98 Glucose Lactate Vent Mode Room air FiO2 21.0 Crit Value Called To Crit Value Called By Crit Value Read Back Blood Gas Notified Time Potassium 4.7 Carbon Dioxide 18 L Anion Gap 21 H BUN 34 H Creatinine 1.7 H Est GFR ( Amer) 48 Est GFR (Non-Af Amer) 40 POC Glucose (mg/dL) 432 H* Random Glucose 537 H* D Calcium 8.7 Phosphorus 3.6 Magnesium 1.4 L Total Bilirubin AST ALT Alkaline Phosphatase Total Protein Albumin Globulin Albumin/Globulin Ratio Urine Color Urine Clarity Urine pH Ur Specific [place] Urine Protein Urine Glucose (UA) Urine Ketones Urine Blood Urine Nitrate Urine Bilirubin Urine Urobilinogen Ur Leukocyte Esterase Urine WBC (Auto) Urine RBC (Auto) Ur Squamous Epith Cells B-Hydroxybutyrate 01/29/18 01/29/18 01/29/18 07:38 08:01 09:05 WBC RBC Hgb Hct MCV MCH MCHC RDW Plt Count MPV Neut % (Auto) Lymph % (Auto) [place] % (Auto) Eos % (Auto) Baso % (Auto) Neut # (Auto) Lymph # (Auto) [place] # (Auto) Eos # (Auto) Baso # (Auto) Puncture Site pCO2 pO2 HCO3 ABG pH ABG Total CO2 ABG O2 Saturation ABG Base Excess ABG Hemoglobin ABG Carboxyhemoglobin POC ABG HHb (Measured) ABG Methemoglobin [place] Test VBG pH VBG pCO2 VBG HCO3 VBG Total CO2 VBG O2 Sat (Calc) VBG Base Excess A-a O2 Difference Respiratory Index Hgb O2 Saturation Sodium Chloride Glucose Lactate Vent Mode FiO2 Crit Value Called To Crit Value Called By Crit Value Read Back Blood Gas Notified Time Potassium Carbon Dioxide Anion Gap BUN Creatinine Est GFR ( Amer) Est GFR (Non-Af Amer) POC Glucose (mg/dL) 364 H 285 H 235 H Random Glucose Calcium Phosphorus Magnesium Total Bilirubin AST ALT Alkaline Phosphatase Total Protein Albumin Globulin Albumin/Globulin Ratio Urine Color Urine Clarity Urine pH Ur Specific [place] Urine Protein Urine Glucose (UA) Urine Ketones Urine Blood Urine Nitrate Urine Bilirubin Urine Urobilinogen Ur Leukocyte Esterase Urine WBC (Auto) Urine RBC (Auto) Ur Squamous Epith Cells B-Hydroxybutyrate 01/29/18 01/29/18 01/29/18 10:06 11:15 11:59 WBC RBC Hgb Hct MCV MCH MCHC RDW Plt Count MPV Neut % (Auto) Lymph % (Auto) [place] % (Auto) Eos % (Auto) Baso % (Auto) Neut # (Auto) Lymph # (Auto) [place] # (Auto) Eos # (Auto) Baso # (Auto) Puncture Site pCO2 pO2 HCO3 ABG pH ABG Total CO2 ABG O2 Saturation ABG Base Excess ABG Hemoglobin ABG Carboxyhemoglobin POC ABG HHb (Measured) ABG Methemoglobin [place] Test VBG pH VBG pCO2 VBG HCO3 VBG Total CO2 VBG O2 Sat (Calc) VBG Base Excess A-a O2 Difference Respiratory Index Hgb O2 Saturation Sodium Chloride Glucose Lactate Vent Mode FiO2 Crit Value Called To Crit Value Called By Crit Value Read Back Blood Gas Notified Time Potassium Carbon Dioxide Anion Gap BUN Creatinine Est GFR ( Amer) Est GFR (Non-Af Amer) POC Glucose (mg/dL) 188 H 223 H 233 H Random Glucose Calcium Phosphorus Magnesium Total Bilirubin AST ALT Alkaline Phosphatase Total Protein Albumin Globulin Albumin/Globulin Ratio Urine Color Urine Clarity Urine pH Ur Specific [place] Urine Protein Urine Glucose (UA) Urine Ketones Urine Blood Urine Nitrate Urine Bilirubin Urine Urobilinogen Ur Leukocyte Esterase Urine WBC (Auto) Urine RBC (Auto) Ur Squamous Epith Cells B-Hydroxybutyrate 01/29/18 01/29/18 01/29/18 13:06 14:03 17:01 WBC RBC Hgb Hct MCV MCH MCHC RDW Plt Count MPV Neut % (Auto) Lymph % (Auto) [place] % (Auto) Eos % (Auto) Baso % (Auto) Neut # (Auto) Lymph # (Auto) [place] # (Auto) Eos # (Auto) Baso # (Auto) Puncture Site pCO2 pO2 HCO3 ABG pH ABG Total CO2 ABG O2 Saturation ABG Base Excess ABG Hemoglobin ABG Carboxyhemoglobin POC ABG HHb (Measured) ABG Methemoglobin [place] Test VBG pH VBG pCO2 VBG HCO3 VBG Total CO2 VBG O2 Sat (Calc) VBG Base Excess A-a O2 Difference Respiratory Index Hgb O2 Saturation Sodium 132 Chloride 102 Glucose Lactate Vent Mode FiO2 Crit Value Called To Crit Value Called By Crit Value Read Back Blood Gas Notified Time Potassium 4.5 Carbon Dioxide 19 L Anion Gap 16 BUN 32 H Creatinine 1.4 Est GFR ( Amer) > 60 Est GFR (Non-Af Amer) 50 POC Glucose (mg/dL) 301 H 297 H Random Glucose 159 H Calcium 8.1 L Phosphorus Magnesium Total Bilirubin AST ALT Alkaline Phosphatase Total Protein Albumin Globulin Albumin/Globulin Ratio Urine Color Urine Clarity Urine pH Ur Specific [place] Urine Protein Urine Glucose (UA) Urine Ketones Urine Blood Urine Nitrate Urine Bilirubin Urine Urobilinogen Ur Leukocyte Esterase Urine WBC (Auto) Urine RBC (Auto) Ur Squamous Epith Cells B-Hydroxybutyrate EKG/Cardiology Studies: Cardiology / EKG Studies 01/29/18 00:53 ELECTROCARDIOGRAM Stat Comment: Mode Of Transportation: BED Reason For Exam: Diabetic Critical Care Progress Note - Nutrition Nutrition: Nutrition Category Date Time Status Heart Healthy Diet [DIET] Diets 01/29/18 Breakfast Active Attending/Attestation - Attestation I have personally seen and examined this patient.: Yes I have fully participated in the care of the patient.: Yes I have reviewed all pertinent clinical information: Yes Notes (Text): 01/29/18 17:56 Today: January The Patient was seen and examined at the bedside, Medical records reviewed, and management issues were discussed and formulated with the house staff. I have reviewed all the relevant clinical, laboratory, hemodynamic, radiographic data and medications Events reviewed Pain issues, skin care, head of the bed elevation, glycemic control were addressed. Agree with above resident's assessment and treatment plans of care as transcribed in Dr. Guardado's note.
[2018-01-29] MEDS: (Novolog) Insulin Aspart, Recombinant 100 u/ml 10 ml vial SC SCH ×2 (16:09→21:09)
[2018-01-29] MEDS ORDERED: (Novolog) Insulin Aspart, Recombinant 100 u/ml 10 ml vial SC SCH (16:30)
[2018-01-29 17:28] LABS: BLOOD UREA NITROGEN 32 mg/dL (9-20); CALCIUM 8.1 mg/dl (8.6-10.4); GFR NON-AFRICAN AMERICAN 50
[2018-01-29] MEDS: Sodium Chloride 0.9% 1,000 ML IV SCH (19:17)
--- NOTE | 2018-01-29 19:20 | CARD ---
APPROVED REPORT Date of service: 01/29/2018 EKG Measurement Heart [id number] <Conclusion> Normal sinus rhythm Septal infarct, age undetermined Abnormal ECG
[2018-01-29] MEDS ORDERED: Dextrose 50% SYRINGE Inj (50 ml) IV STA (20:47)
[2018-01-29] MEDS ORDERED: Insulin Detemir 100 units/ml Vial (Levemir) SC SCH (22:00)
--- NOTE | 2018-01-29 23:48 | HP ---
HISTORY OF PRESENT ILLNESS: I saw him in the Emergency Room at [facility] (Former[facility] He ran out of his medications again. He is on insulin for his blood sugars. He came in and not feeling well with elevated blood pressures at home, greater than 500. He has done this numerous times in the past when he ran out of medication, I had told them numerous times. I gave him multiple refills. If they run out, they should possibly get it a week beforehand, but always will call my office and I will always renew it for him. They have yet to have done that. Now, he is not feeling well and is in the emergency room, blood sugars are over 500. He has severe illness right now. He is aching all over. His is with him. PAST MEDICAL HISTORY: He has had a past medical history of anemia, arthritis, CHF, diabetes, DKA with multiple times, gastrointestinal ulcer, hypertension, high cholesterol, pancreatitis, peripheral edema, chronic kidney disease, deep vein thrombosis. He had seizures in the past. He has had bilateral inguinal hernia repairs, insertion of femoral veins for vena cava, PICC line, midline. He has had a lot of things done. He has had endoscopies. REVIEW OF SYSTEMS: No acute vision or hearing changes. No fever or chills. No chest pain or shortness of breath. No nausea or vomiting. No problems urinating. No back pain. No rashes. Little bit weak. No numbness or headache. Anxious. Very uncomfortable. Gross body pain overall. PHYSICAL EXAMINATION: VITAL SIGNS: Temperature 98, pulse 95, respiratory rate 20, blood pressure 173/97, and 97% O2 sat. GENERAL: He is comfortable in bed at this time. He wants a PICC line, let us get him a PICC line. HEENT: Extraocular muscles intact. Pupils are equal, reactive to light. Throat is moist. NECK: Supple. HEART: Regular rate. LUNGS: Decrease breath sounds with clear to auscultation. ABDOMEN: Soft, nontender. Positive bowel sounds. No guarding or rebound. No CVA tenderness. EXTREMITIES: With no edema. Fair range of motion. SKIN: For the most part is intact that we can tell. NEUROLOGIC: Alert and oriented x3, very uncomfortable. LABORATORY DATA: midline. He had multiple tests. His beta hydroxybutyrate is 6.96, high. He has 3+ glucose in his urine. He has 132 sodium. Potassium was 5.8, now down to 4.7. BUN 30 and creatinine 1.9 and now 34 and 1.7 with better GFR was up to 40. Blood sugars, he had 834 and 537 and is now down to 364. Calcium is 8.7. Phosphorus 3.6, magnesium 1.4. Total bili is 0.6, AST is 50, ALT 57, alk phos 424, total protein 7.1. His lactate was 2. Sodium is 112. White count 5, hemoglobin 12.9, hematocrit 44, and platelets 291. ASSESSMENT AND PLAN: He has a consultation with the office rep and also is going to the intensive care unit. He is going to have Apresoline, Crestor, Ecotrin, Feosol, Flomax, insulin drip, Lovenox, Lyrica, Neurontin, Norvasc, Novolin, Protonix, and intravenous fluids. We are going to check his labs tomorrow and hopefully will improve. It is very possible that we might need to have . If it does not improve with physical therapy, we will see what physical therapy suggests. Discussed with the and him at length. He is being admitted with very high blood sugars greater than 800 with diabetic ketoacidosis. Zohaib Morgan DO MTDD
--- NOTE | 2018-01-30 01:03 | CON ---
DATE: 01/29/2018 ENDOCRINOLOGY CONSULTATION LOCATION: ICU Room 16. HISTORY OF PRESENT ILLNESS: This is a 72-year-old male with known history of type 2 insulin-requiring diabetes who apparently ran out of his insulin for the last three to four days and presented here with generalized body weakness and marked hyperglycemic accelerations and is now being referred for diabetic evaluation and management. PAST MEDICAL HISTORY: As mentioned above, the patient has had multiple hospital admissions for extremes of glycemic fluctuations from symptomatic hypoglycemia to diabetic ketoacidosis and hyperosmolar state. His last insulin regimen was a combination of Levemir given as 10 unit subcu at bedtime daily with Humalog given as 6 units t.i.d. before meals with glipizide at 5 mg b.i.d. History of hypertensive cardiovascular disease and dyslipidemia. FAMILY HISTORY: Positive for diabetes and hypertension. SOCIAL HISTORY: The patient has a supportive family and his is extremely attentive and supportive of his needs. He is a former smoker, but quit a few years ago. REVIEW OF SYSTEMS: As per the , he was noted to have increasing lethargy and hypersomnolence over the last day or so prior to admission with generalized body weakness and progressive bouts of dizziness and lightheadedness, worse on the day of admission. No chest pain, palpitations, or PNDs. His oral intake has been variable with nausea, dyspepsia, and episodic vomiting episodes with vague upper abdominal pain. LABORATORY DATA: His initial chemistries show a BUN of 34, sodium 129, potassium 5.8, chloride is 92, CO2 is 13, glucose is 834, and creatinine is 1.9. His anion gap is 30. ASSESSMENT: This is a 72-year-old male with uncontrolled and decompensated type 2 insulin-requiring diabetes, presenting here with diabetic ketoacidosis and dehydration related to recent drug omission of his insulin regimen. He also has diabetic microvascular complications of retinopathy, polyneuropathy, and nephropathy with diabetic macrovascular complications of coronary artery disease and peripheral arterial disease and vasculopathy. PLAN OF MANAGEMENT: As discussed with patient and staff, we will continue the insulin drip infusion and once the CO2 is at least above 18 with the near closure of the anion gap, then we can switch him over to a more physiologic basal and bolus insulin drug combination as indicated. We will obtain serial chemistries and supplement accordingly as needed. We will continue the vigorous IV hydration with half normal saline running at 125 mL per hour to at least resolve his metabolic acidosis and optimize and replenish his fluids and electrolytes from the increased osmotic diuresis thereof. We will obtain serial chemistries and supplement accordingly as needed. We will follow. Myrna Sheffield MD
[2018-01-30] MEDS: Sodium Chloride 0.45% 1,000 ML IV SCH ×3 (04:45→22:05)
[2018-01-30 06:38] LABS: BASO % 0.4 % (0.0-2.0); EOS # 0.1 K/uL (0.0-0.7); EOS % 1.6 % (0.0-4.0); HEMOGLOBIN 10.9 g/dL (12.0-18.0); LYMPH # 1.1 K/uL (1.0-4.3); LYMPH % 24.2 % (20.0-40.0); MEAN CELL VOLUME 79.4 fL (80.0-94.0); MEAN CORPUSCULAR HEMOGLOBIN 25.9 pg (27.0-31.0); MEAN CORPUSCULAR HGB CONC 32.6 g/dL (33.0-37.0); MEAN PLATELET VOLUME 8.3 fL (7.2-11.7); MONO # 0.6 K/uL (0.0-0.8); MONO % 12.1 % (0.0-10.0); NEUT # 2.9 K/uL (1.8-7.0); NEUT % 61.7 % (50.0-75.0); RBC 4.2 Mil/uL (4.40-5.90); WHITE BLOOD COUNT 4.7 K/uL (4.8-10.8)
[2018-01-30 07:16] LABS: ALB/GLOB RATIO 0.8 (1.0-2.1); ALBUMIN 2.4 g/dL (3.5-5.0); ALT/SGPT 41 U/L (21-72); AST/SGOT 20 U/L (17-59); BLOOD UREA NITROGEN 28 mg/dL (9-20); CALCIUM 8.1 mg/dl (8.6-10.4); GFR NON-AFRICAN AMERICAN 55; HDL CHOLESTEROL 35 mg/dL (30-70); LDL CHOLESTEROL < 30 mg/dL (0-129)
[2018-01-30] MEDS: (Novolog) Insulin Aspart, Recombinant 100 u/ml 10 ml vial SC SCH ×7 (07:29→22:02)
[2018-01-30] MEDS ORDERED: Dextrose 50% SYRINGE Inj (50 ml) IV ONE (07:45)
[2018-01-30] MEDS: Pantoprazole 40 mg EC Tab PO SCH (09:21)
[2018-01-30] MEDS: Enoxaparin 30 mg Syringe SC SCH (09:21)
[2018-01-30] MEDS: Multiple Vitamins Tab PO SCH (09:21)
--- NOTE | 2018-01-30 18:40 | PN ---
DATE: 01/30/2018 ENDO FOLLOWUP NOTE LOCATION: In ICU, room 16. SUBJECTIVE: This is a 72-year-old male with recent uncontrolled type 2 insulin-requiring diabetes, presenting here with diabetic ketoacidosis and dehydration and has since then improved clinically and metabolically as noted overnight. However, early this morning he developed fasting hypoglycemia with glucose levels down to 54 mg/dL. The chemistry glucose was reported as 38 mg/dL. His hemoglobin A1c; however, is extremely elevated at 13.9 indicative of the poor metabolic control of his diabetic condition even prior to this admission. LABORATORY DATA: His chemistries today showed a BUN of 28, sodium 133, potassium 4.2, chloride 107, CO2 of 20, glucose 38, and creatinine 1.3. His latest glucose by midday this morning have ranged from 223 to over 400 mg/dL. ASSESSMENT: This is a 72-year-old male with extremes of glycemic fluctuation, related to the variability of his oral intake with underlying autonomic neuropathy contributing to the aforementioned and clearly is uncontrolled type 2 insulin-requiring diabetes as noted. He has some previous multiple hospital readmissions to [facility] for extremes of symptomatic hypoglycemia and glucose levels below 20 to marked hyper or smaller hyperglycemic state to his diabetic ketoacidosis almost on a [id number] basis in the last year or so as noted. There is a very strong factor of poor adherence to his insulin regimen at home as per the as noted. He also has diabetic microvascular complications of retinopathy, polyneuropathy and nephropathy with diabetic macrovascular complications of coronary artery disease and peripheral arterial disease and vasculopathy. PLAN OF MANAGEMENT: We will modify once again his basal and bolus insulin regimen and lower the NovoLog to 4 units subcu t.i.d. before meals to start today. We will also increase his Levemir to 10 units subcu at bedtime daily to start tonight. We will titrate incrementally as indicated to optimize metabolic control. We will continue the modified low dose correction scale using NovoLog insulin as given. We will obtain serial chemistries and supplement accordingly as needed. We will also continue the IV hydration as given and obtain serial chemistries accordingly. We will follow. Myrna Sheffield MD
[2018-01-30] MEDS ORDERED: Insulin Detemir 100 units/ml Vial (Levemir) SC SCH ×2 (22:00)
[2018-01-31] MEDS: Sodium Chloride 0.45% 1,000 ML IV SCH ×2 (04:30→06:30)
[2018-01-31 04:57] VITALS: BP 119/74; PULSE 62; RESP 16; O2SAT 100
[2018-01-31 06:39] LABS: MEAN CELL VOLUME 79.5 fL (80.0-94.0); MEAN CORPUSCULAR HEMOGLOBIN 25.9 pg (27.0-31.0); MEAN CORPUSCULAR HGB CONC 32.5 g/dL (33.0-37.0); MEAN PLATELET VOLUME 8.3 fL (7.2-11.7); RBC 3.85 Mil/uL (4.40-5.90); RED CELL DISTRIBUTION WIDTH 19.2 % (11.5-14.5); WHITE BLOOD COUNT 4.2 K/uL (4.8-10.8)
[2018-01-31 06:44] LABS: ALB/GLOB RATIO 0.8 (1.0-2.1); ALBUMIN 2.3 g/dL (3.5-5.0); ALT/SGPT 47 U/L (21-72); AST/SGOT 47 U/L (17-59); BLOOD UREA NITROGEN 24 mg/dL (9-20); CALCIUM 7.9 mg/dl (8.6-10.4); GFR NON-AFRICAN AMERICAN > 60
--- NOTE | 2018-01-31 06:51 | DS ---
HISTORY OF PRESENT ILLNESS: I saw him in the intensive care unit. He came into the hospital with DKA with a very elevated blood sugar of over 800. Once again, he ran out of medication, did not call me before that happened. This has been explained to him over and over and over again to him and his to please call me before he runs out of medications, again. He came to the emergency room with DKA. He is very noncompliant. He has been on IV fluids, Apresoline, Crestor, dextrose as needed, Ecotrin, Feosol, Flomax, hexavitamin, Levemir, Lovenox, Lyrica, Motrin, Neurontin, Norvasc, Novolin, NovoLog, and Protonix. He is resting in bed. He is comfortable. No chest pain. No shortness of breath. No abdominal pain. He goes back to normal right now. He is eating. He is walking in the room. PHYSICAL EXAMINATION: VITAL SIGNS: He has 97.6 temp, 64 pulse, 113/77 blood pressure, 17 respiratory rate, and 100% O2 sat on room air. HEENT: Head is atraumatic and normocephalic. GENERAL: Alert and oriented x3. HEART: Regular rate. LUNGS: Clear to auscultation. ABDOMEN: Soft. EXTREMITIES: No edema. He does have a small dime-sized sacral ulcer. He sits too much. He is trying to get up and move. He has no reason for him to have an ulcer. He understands that. He is going to work on that staying bottom. LABORATORY DATA: He has 4.7 white count, 10.9 hemoglobin, 33.4 hematocrit with a 250 platelets. He has 132 sodium, potassium 4.5, BUN 32, creatinine 1.4, last blood sugar was 136. He is going to be seen by Dr. Sheffield, the manager quality systems. I would like him to do have a sit-down with him and his with Dr. Sheffield, and go over the insulin and the treatment plan, because he is very noncompliant and he has been back and forth to the hospital numerous times this year alone, and I would like to make sure she goes over with him one more time to see if we can keep him out of the hospital or the emergency room. I am hoping to discharge Ferny later today if it is okay with Dr. Sheffield. He is here for DKA, but improved very quickly. I will see him in the office in a week. i am hoping for a discharge if ok w/ endo Zohaib Morgan DO MTDGeoffrey
[2018-01-31] MEDS: (Novolog) Insulin Aspart, Recombinant 100 u/ml 10 ml vial SC SCH ×4 (08:35→12:10)
[2018-01-31] MEDS: Pantoprazole 40 mg EC Tab PO SCH (09:35)
[2018-01-31] MEDS: Enoxaparin 30 mg Syringe SC SCH (09:35)
[2018-01-31] MEDS: Multiple Vitamins Tab PO SCH (09:35)
--- NOTE | 2018-01-31 10:50 | PN ---
DATE: 01/31/2018 SUBJECTIVE: , resting comfortably, in no acute distress. His blood sugars have been up and down. Getting adjustments of his insulin by the insecticide mixer. He is currently on Apresoline, Crestor, Ecotrin, Feosol, Flomax, hexavitamin, Levemir, Lovenox, Lyrica, Neurontin, Norvasc, insulin, Novolog, Protonix. PHYSICAL EXAMINATION: VITAL SIGNS: 97.9 temperature, 62 pulse, 119/74 blood pressure, 16 respiratory rate, 100% O2 saturation on room air. GENERAL: He is alert and oriented x3, resting comfortably. He is eating. No complaints. No chest pain, shortness of breath, or abdominal pain. HEENT: Head is atraumatic, normocephalic. HEART: Regular rate. LUNGS: Clear to auscultation. ABDOMEN: Soft. EXTREMITIES: No edema. LABORATORY DATA: He has a 4.7 white count, 10.9 hemoglobin, 250 platelets. He has chemistries of 133 sodium, potassium 4.2, BUN 20, creatinine 1.3, GFR is 55. Sugars have been 53, then 39, then 136, then 38. Hemoglobin A1c is 13.9. He is definitely a noncompliant patient. Calcium is 8.1, phosphorus 1.9, magnesium 1.6, total bili is 0.4, AST is 20, ALT is 41, alk phos 238, total protein 5.1. ASSESSMENT AND PLAN: As per Endocrinology and economics teacher, we will continue rest of the treatment and care and when we can discharge him, he will let me know. I will check his labs. Thank you very much. Zohaib Morgan DO MTDD
[2018-01-31 12:30] VITALS: TEMP 97.8
--- NOTE | 2018-01-31 19:27 | PN ---
DATE: 01/31/2018 ENDO FOLLOW-UP NOTE LOCATION: ICU, room 16. SUBJECTIVE: This is a 72-year-old male with recent uncontrolled type 2 insulin-requiring diabetes, presenting here with marked hyperglycemic accelerations and concomitant diabetic ketoacidosis and dehydration and has since then improved clinically and metabolically as noted overnight. However, he has had extremes of glycemic fluctuations even here in the ICU as noted. His oral intake has been quite variable but improved as per the nursing staff. His glucose levels have ranged from 91 this morning to 396 at bedtime last night. It was 400 at lunchtime and in the diabetes clinical manager yesterday had marked hypoglycemic episodes as noted and mentioned in the previous note. LABORATORY DATA: His current chemistry done today showed a BUN of 24, sodium 129, potassium 4.4, chloride 104, CO2 of 19, glucose 194, and creatinine 1.1. ASSESSMENT AND PLAN: At this time, we will modify once again his basal and bolus insulin regimen and lower the Levemir to 12 units subcutaneously at bedtime daily to start tonight. We will also continue the NovoLog given as 8 units t.i.d before meals as ordered. The patient again has quite variable oral intake and so he has been advised to go up and down on his insulin dosing by 2 units as his oral intake changes day to day. The imperative need for adherence to his insulin regimen was reinforced once again to the patient at bedside. We will discontinue the IV hydration at this time, and the patient can be cleared for eventual discharge. Prescriptions for the insulin regimen has been given at this time for the patient's use. Myrna Sheffield MD
[2018-01-31] MEDS ORDERED: Insulin Detemir 100 units/ml Vial (Levemir) SC SCH ×2 (22:00)
== END 2018-01-31 12:50 | disposition home or self-care (01) | DRG 638 ==
LOC: C.ER 00:43 → C.9E 02:20 → C.9I 06:11
PROVIDERS: ADMIT Family Medicine; ATTEND Family Medicine
DX: E11.10 Type 2 diabetes mellitus with ketoacidosis without coma (principal); I13.0 Hypertensive heart and chronic kidney disease with heart failure and stage 1 through stage 4 chronic kidney disease, or unspecified chronic kidney disease; E11.22 Type 2 diabetes mellitus with diabetic chronic kidney disease; E11.21 Type 2 diabetes mellitus with diabetic nephropathy; E11.42 Type 2 diabetes mellitus with diabetic polyneuropathy; E87.5 Hyperkalemia; E11.319 Type 2 diabetes mellitus with unspecified diabetic retinopathy without macular edema; I25.10 Atherosclerotic heart disease of native coronary artery without angina pectoris; E11.51 Type 2 diabetes mellitus with diabetic peripheral angiopathy without gangrene; E86.0 Dehydration; E78.00 Pure hypercholesterolemia, unspecified; N18.9 Chronic kidney disease, unspecified; I50.9 Heart failure, unspecified; Z96.641 Presence of right artificial hip joint; L89.159 Pressure ulcer of sacral region, unspecified stage; Z79.4 Long term (current) use of insulin; Z87.891 Personal history of nicotine dependence; Z91.19 Patient's noncompliance with other medical treatment and regimen

== ENCOUNTER 2018-03-08 17:04 | Inpatient (IN) | payer MEDICARE ==
[2018-03-08 17:05] VITALS: BMI 21.6
--- NOTE | 2018-03-08 18:45 | C.PDOC ---
History Of Present Illness 72 year old male presents to ED for hypoglycemia. Patient states he last took insulin this morning and ate right after. Patient visited [facility] for similar complaint and was diagnosed with pneumonia but left AMA. He denies any fever, coughing, nausea, or vomiting. Time Seen by Provider: 03/08/18 18:12 Chief Complaint (Nursing): Altered Mental Status History Per: Patient History/Exam Limitations: None Onset/Duration Of Symptoms: Hrs Current Symptoms Are (Timing): Still Present Past Medical History Reviewed: Historical Data, Nursing Documentation, Vital Signs Vital Signs: Last Vital Signs Temp 92.7 F L 03/08/18 18:03 Pulse 61 03/08/18 18:03 Resp 19 03/08/18 18:03 BP 133/75 03/08/18 18:03 Pulse Ox 95 03/08/18 18:03 - Medical History PMH: Anemia, Arthritis, CHF, Diabetes, Gastrointestinal Ulcer, HTN, Hypercholesterolemia, Pancreatitis, Peripheral Edema, Pneumonia, Chronic Kidney Disease Denies: Deep Vein Thrombosis Comment Only: Seizures (pt denies) Surgical History: Endoscopy Denies: Pacemaker - [facility] Procedures FLORESITA ING HRN REP-GRFT NOS (05/04/14) INSERTION OF INFUSION DEV INTO R FEMOR VEIN, PERC APPROACH (09/15/17) INSERTION OF INFUSION DEV INTO SUP VENA CAVA, PERC APPROACH (01/29/18) INSERTION OF INFUSION DEVICE INTO UPPER VEIN, PERC APPROACH (09/25/17) INTRODUCE OF OTH THERAP SUBST INTO RESP TRACT, VIA OPENING (08/22/17) ULTRASONOGRAPHY OF SUPERIOR VENA CAVA, GUIDANCE (12/16/17) Family History: States: No Known Family Hx - Social History Hx Tobacco Use: No Hx Alcohol Use: No Hx Substance Use: No - Immunization History Hx Tetanus Toxoid Vaccination: Yes Hx Influenza Vaccination: Yes Hx Pneumococcal Vaccination: Yes Review Of Systems Except As Marked, All Systems Reviewed And Found Negative. Constitutional: Negative for: Fever, Chills Respiratory: Negative for: Cough Gastrointestinal: Negative for: Nausea, Vomiting Physical Exam - Physical Exam Additional Physical Exam Comments: Constitutional: No acute distress. Head: Normocephalic. Atraumatic. Eyes: PERRL. ENT: Moist mucous membranes. Neck: Supple. Cardiovascular: Regular rate. Radial pulse 2+ bilaterally. Chest: No tenderness. Respiratory: Clear to auscultation bilaterally. GI: Soft. Nontender. Nondistended. Back: No CVA tenderness. Musculoskeletal: No tenderness or swelling of extremities. Skin: No rash. Neurologic: Alert, no focal deficit. ED Course And Treatment - Laboratory Results Result Diagrams: 03/08/18 18:50 03/08/18 18:50 O2 Sat by Pulse Oximetry: 95 (RA) Pulse Ox Interpretation: Normal Medical Decision Making Medical Decision Making: Impression: Hypoglycemia Plan: --EKG --Labs --Chest X-Ray --Urinaylsis CXR shows bilateral infiltrates. Dr. Morgan accepts patient to his service for continued treatment. Dr. Sheffield and Dr. García consults placed. Disposition - Disposition Disposition: HOSPITALIZED Disposition Time: 19:52 Condition: GUARDED Forms: [employer] (Upper Sor[place]) - POA Core Measure Indicators: Pneumonia - Clinical Impression Clinical Impression: Pneumonia, Hypoglycemia - Scribe Statement The provider has reviewed the documentation as recorded by the La Nenaibmegan King Provider Attestation: All medical record entries made by the La Nenaibe were at my direction and personally dictated by me. I have reviewed the chart and agree that the record accurately reflects my personal performance of the history, physical exam, medical decision making, and the department course for this patient. I have also personally directed, reviewed, and agree with the discharge instructions and di sposition.
[2018-03-08 18:56] LABS: BASO % 0.6 % (0.0-2.0); HEMOGLOBIN 12.8 g/dL (12.0-18.0); LYMPH # 0.8 K/uL (1.0-4.3); LYMPH % 18.8 % (20.0-40.0); MEAN CELL VOLUME 83.6 fL (80.0-94.0); MEAN CORPUSCULAR HEMOGLOBIN 26.2 pg (27.0-31.0); MEAN CORPUSCULAR HGB CONC 31.3 g/dL (33.0-37.0); MEAN PLATELET VOLUME 8.3 fL (7.2-11.7); MONO # 0.1 K/uL (0.0-0.8); MONO % 3.1 % (0.0-10.0); NEUT # 3.1 K/uL (1.8-7.0); NEUT % 76.5 % (50.0-75.0); NRBC % 0.1 % (0.0-2.0); RBC 4.89 Mil/uL (4.40-5.90); RED CELL DISTRIBUTION WIDTH 19.7 % (11.5-14.5)
[2018-03-08 19:06] LABS: ALB/GLOB RATIO 0.9 (1.0-2.1); ALBUMIN 3.4 g/dL (3.5-5.0); ALT/SGPT 14 U/L (21-72); AST/SGOT 28 U/L (17-59); BLOOD UREA NITROGEN 35 mg/dL (9-20); CALCIUM 8.7 mg/dl (8.6-10.4); GFR NON-AFRICAN AMERICAN 43; LIPASE < 10 U/L (23-300)
[2018-03-08 19:18] LABS: CK-MB 1.88 ng/mL (0.0-3.38)
[2018-03-08] MEDS ORDERED: Cefepime 2 GM in Sodium Chloride 0.9% 50 ML IVPB ONE (20:47)
[2018-03-08] MEDS ORDERED: (Novolin R) Insulin Human Regular 100 units/ml vial SC SCH (22:00)
[2018-03-08] MEDS ORDERED: Insulin Detemir 100 units/ml Vial (Levemir) SC SCH (22:00)
[2018-03-08] MEDS: Cefepime IV 2 gm in Dextrose 2 GM/100 ML BAG IVPB SCH (22:09)
[2018-03-08 22:34] LABS: GRANULAR CAST 59 /lpf (0-1); SQUAMOUS EPITHIAL 1 /hpf (0-5); URINE BILIRUBIN NEGATIVE (NEGATIVE); URINE BLOOD 1+ (NEGATIVE); URINE CLARITY Clear (Clear); URINE COLOR Yellow (YELLOW); URINE GLUCOSE (UA) 1+ mg/dL (Normal); URINE LEUKOCYTE ESTERASE NEG Leu/uL (Negative); URINE PROTEIN 2+ mg/dL (NEGATIVE); URINE UROBILINOGEN NORMAL mg/dL (0.2-1.0)
--- NOTE | 2018-03-09 04:14 | HP ---
CHIEF COMPLAINT: He left AMA from [facility] about two days ago. He was there for sepsis and labile blood sugars and now is back in [facility] and shows low temperature of 92, most probably septic and with blood sugar issues. HISTORY OF PRESENT ILLNESS: This is a 72-year-old man with his who is very upset with him. She has no control over him, he does what ever he wants, takes his medicines, does not take his medications and now AMA from [facility] when he was septic. He has had pneumonia, questionable altered mental status, but presently he is comfortable. PAST MEDICAL HISTORY: Anemia, arthritis, CHF, diabetes, up and down gastrointestinal ulcers, hypertension, high cholesterol, pancreatitis, peripheral edema, pneumonia, chronic kidney disease, deep vein thrombosis, seizures, he has had endoscopies, no pacemaker, bilateral inguinal hernia repair. PAST SURGICAL HISTORY: He has had multiple procedures. SOCIAL HISTORY: He does not smoke, does not drink. Does not do drugs. FAMILY HISTORY: Unknown family history, but believe is diabetes. REVIEW OF SYSTEMS: He is having chills. He is little bit off. Temperature in the ER was 92. No chest pain or palpitations. No vision or hearing changes. No sore throat. No neck pain. No coughing. No mucus or congestion. He has just had pneumonia a week ago. No nausea, vomiting, constipation, or diarrhea. He is pleasant, eating dinner right now. PHYSICAL EXAMINATION: VITAL SIGNS: Has 92.7 temperature, 61 pulse, 19 respiratory rate, and 133/75 blood pressure, and 95% O2 sat. GENERAL: The patient is looking at me. He is comfortable. No acute distress. HEENT: Head is atraumatic and normocephalic. Extraocular muscles are intact. Pupils are reactive to light. Throat is moist. NECK: Supple. HEART: Regular rate. Normal S1 and S2. LUNGS: Decreased breath sounds bilaterally. Poor inspiration but clear to auscultation. ABDOMEN: Soft, nontender. Positive bowel sounds. No guarding. No rebound. No CVA tenderness. EXTREMITIES: No edema. SKIN: For the most part, I can tell no rashes or ulcers. NEUROLOGIC: He is alert and comfortable, making demands right now. Thyroid midline. No palpable appreciable lymphadenopathy. LABORATORY DATA: Multiple tests in the ER. Chest x-ray is pending. He has 4 white counts, 12.8 hemoglobin, 40.9 hematocrit with 340 platelets. Has 137 sodium, potassium 3.9, BUN 35, creatinine 1.6, GFR is 43, last blood sugar is 179. AST is 20, ALT is 14, alkaline phosphatase 161, total creatinine kinase is 34. Troponin I is less than 0.012. Total protein is 7, albumin is 3.4, and lipase is less than 10. ASSESSMENT AND PLAN: We will have a consult with Infectious Disease and Endocrinology. He had a dose of cefepime 2 g in the emergency room. He will be on his regular medications. Insulin coverage. We will watch him closely, hopefully his temperature will come up. He is on a Jonh hugger blanket. Most probably septic. Zohaib Morgan DO
[2018-03-09 04:26] LABS: MEAN CORPUSCULAR HEMOGLOBIN 25.8 pg (27.0-31.0); MEAN CORPUSCULAR HGB CONC 30.6 g/dL (33.0-37.0); MEAN PLATELET VOLUME 8.3 fL (7.2-11.7); RBC 3.92 Mil/uL (4.40-5.90); WHITE BLOOD COUNT 9.2 K/uL (4.8-10.8)
[2018-03-09 04:29] LABS: HEMOGLOBIN 10.1 g/dL (12.0-18.0)
[2018-03-09 04:33] LABS: INR 1.1; PROTHROMBIN TIME 11.7 SECONDS (9.7-12.2)
[2018-03-09 04:38] LABS: HDL CHOLESTEROL 67 mg/dL (30-70)
[2018-03-09] MEDS: Cefepime IV 2 gm in Dextrose 2 GM/100 ML BAG IVPB SCH ×3 (04:40→20:27)
[2018-03-09 04:47] LABS: ALB/GLOB RATIO 0.9 (1.0-2.1); ALBUMIN 3.1 g/dL (3.5-5.0); CALCIUM 8.4 mg/dl (8.6-10.4)
[2018-03-09 04:51] LABS: LDL CHOLESTEROL < 30 mg/dL (0-129)
[2018-03-09] MEDS ORDERED: Sod Polystyrene Sulf 15 gm/60 ml Susp PO ONE (05:56)
--- NOTE | 2018-03-09 06:15 | CON ---
DATE: 03/08/2018 ENDOCRINOLOGY CONSULTATION LOCATION: In ER Holding and will be going to ICU. HISTORY OF PRESENT ILLNESS: This is a 72-year-old male, with known history of type 2 insulin requiring diabetes with extremes of glycemic fluctuations and now was found to have altered mental status at home with supervening hypoglycemia and is now being admitted for further workup and management. He also has concomitant pneumonia as noted thereof. PAST MEDICAL HISTORY: As mentioned above, history of type 2 insulin-requiring diabetes and was just discharged from [facility] on a combination of Levemir given as 12 units at bedtime with Humalog given as 6 units 3 times daily before meals. History of hypertension and dyslipidemia. History of coronary artery disease, peripheral arterial disease, and vasculopathy. History of diabetic retinopathy, polyneuropathy, and nephropathy with underlying chronic kidney disease. FAMILY HISTORY: Positive for diabetes and hypertension. SOCIAL HISTORY: The patient is a former smoker and has a very supportive and family. REVIEW OF SYSTEMS: As mentioned above, was found by his to be extremely lethargic and hypersomnolence with altered mental status just before admission and was also found to have generalized body weakness with progressive bouts of dizziness and lightheadedness. No chest pains or palpitations, but admits to pleuritic chest pain with episodic shortness of breath, especially on exertion. His oral intake is variable with extremely suboptimal meal portions. As per the , has occasional dyspepsia and habitual constipation. No alterations of bowel and/or urinary pattern. Also admits to lower extremity paresthesias. PHYSICAL EXAMINATION: GENERAL: This is an average built male, in no apparent distress. VITAL SIGNS: Blood pressure of 140/80, regular, temperature 98, respirations 20. Height is 6 feet 1 inch. Weight is 130 pounds. HEENT: Head normocephalic. Eyes anicteric with pink conjunctivae. Funduscopy is not possible at this time. Ears, nose, and throat, otherwise, normal. NECK: Supple. Thyroid gland is normal in size. No carotid bruits or cervical adenopathy. CARDIOPULMONARY: Some adynamic precordium. S1 and S2 rapid and regular. LUNGS: Clear to auscultation. ABDOMEN: Flat, soft with positive bowel sounds. EXTREMITIES: No peripheral edema. Pulses are +2 bilaterally. LABORATORY DATA: Chemistry showed a BUN of 35, sodium 137, potassium 3.9, chloride 93, CO2 of 30, glucose 108, and creatinine 1.6. His chest x-ray shows bilateral pulmonary infiltrates as noted. ASSESSMENT: This is a 72-year-old male with acute pneumonitis, presenting here also with symptomatic hypoglycemia and associated neuroglycopenic and hyperadrenergic manifestations of the same. He has extreme metabolic lability with glucose fluctuations ranging from hypoglycemia to marked hyperglycemic accelerations as noted from the previous multiple hospital readmission. He has diabetic microvascular complications of retinopathy, polyneuropathy, and nephropathy with underlying chronic kidney disease. He also has diabetic macrovascular complications of coronary artery disease, peripheral arterial disease, and vasculopathy. PLAN OF MANAGEMENT: We will modify his current insulin coverage to a very low-dose algorithm and observe his glycemic fluctuations overnight as noted. If his oral intake improves, then we will advance him to a more physiologic basal and bolus insulin drug combination of very small doses accordingly. We will obtain a hemoglobin A1c to confirm his prior glycemic control and baseline thyroid function studies will be ordered. We will obtain serial chemistries and supplement accordingly as needed. We will also continue the IV hydration as given. We will follow. Myrna Sheffield MD
[2018-03-09] MEDS ORDERED: (Novolog) Insulin Aspart, Recombinant 100 u/ml 10 ml vial SC SCH (07:30)
[2018-03-09] MEDS: (Novolog) Insulin Aspart, Recombinant 100 u/ml 10 ml vial SC SCH ×6 (07:59→21:38)
--- NOTE | 2018-03-09 08:52 | RAD ---
Date of service: 03/08/2018 HISTORY: hypoglycemia COMPARISON: 01/29/2018. FINDINGS: LUNGS: There are low lung volumes there is multifocal airspace disease in right upper lobe right lower lobe and lower lobe. PLEURA: No significant pleural effusion identified, no pneumothorax apparent. CARDIOVASCULAR: Normal. OSSEOUS STRUCTURES: No significant abnormalities. VISUALIZED UPPER ABDOMEN: Normal. OTHER FINDINGS: None. IMPRESSION: Suspect multifocal pneumonia. Follow-up is advised.
--- NOTE | 2018-03-09 08:58 | PN ---
DATE: 03/09/2018 SUBJECTIVE: He is in the intensive care unit, bed 11. I believe they are looking for telemetry beds. He is lying in bed. He is in pain. He has been on , Cefepime, Crestor, Ecotrin, Feosol, Flomax, vitamins, Levemir, Maxipime, morphine now, Neurontin, Norvasc, Novolin, Pepcid, and Protonix. PHYSICAL EXAMINATION: VITAL SIGNS: Temperature 97.9, better than 92 when he came in; 95 pulse rate; 147/85 blood pressure; 19 respiratory rate; and 95% O2 sat. GENERAL: He is alert. He is comfortable. He is in pain. HEENT: Head is atraumatic and normocephalic. HEART: Regular rate. LUNGS: Decreased breath sounds, but clear. ABDOMEN: Soft and nontender. Positive bowel sounds. EXTREMITIES: No edema. Interosseous IV was taken out. He has been needing to have a midline or PICC line put in today for IV access. He has a 9.2 white count, 10.1 hemoglobin, 32 hematocrit with 282 platelets. Sodium 133; potassium is 5.7, we will give him some Kayexalate; BUN 35; creatinine 1.8, supposed to be on IV fluids; 37 GFR; blood sugar was 276; calcium 8.4. Total bilirubin is 0.8, AST is 44, ALT is 59, alk phos 178, total protein 6.6. TSH is 3. Urine is normal. ASSESSMENT AND PLAN: He came in with 92 temperature with chills. He has a consult with Infectious Disease and Endocrinology. He needs intravenous access. He needs Kayexalate. We are checking his laboratories. He is against medical advice from [facility] few days ago when he was septic. Zohaib Morgan DO MTDD
[2018-03-09] MEDS: Multiple Vitamins Tab PO SCH (09:49)
--- NOTE | 2018-03-09 12:26 | CP.PCM.CON ---
History of Present Illness - History of Present Illness History of Present Illness: 72M with PMH of uncontrolled diabetes with multiple admissions for DKA was recently admitted for gastritis/ esophagitis and pneumonia but signed out AMA Admitted to ICU for pneumonia right lung ID consulted for antibiotic management PMH: HTN, DM, HLD, CHF, CVA, anemia, chronic pancreatitis PSH: Turp, right hip replacement ALL: NKDA Social: former smoker quit in 1989, no ETOH or drugs - Medical History PMH: Anemia, Arthritis, CHF, Diabetes, Gastrointestinal Ulcer, HTN, Hypercholesterolemia, Pancreatitis, Peripheral Edema, Pneumonia, Chronic Kidney Disease Denies: Deep Vein Thrombosis Comment Only: Seizures (pt denies) Surgical History: Endoscopy Denies: Pacemaker - [facility] Procedures FLORESITA ING HRN REP-GRFT NOS (05/04/14) INSERTION OF INFUSION DEV INTO R FEMOR VEIN, PERC APPROACH (09/15/17) INSERTION OF INFUSION DEV INTO SUP VENA CAVA, PERC APPROACH (01/29/18) INSERTION OF INFUSION DEVICE INTO UPPER VEIN, PERC APPROACH (09/25/17) INTRODUCE OF OTH THERAP SUBST INTO RESP TRACT, VIA OPENING (08/22/17) ULTRASONOGRAPHY OF SUPERIOR VENA CAVA, GUIDANCE (12/16/17) Review of Systems - Constitutional Constitutional: Anorexia, Malaise. absent: Chills, Fever - EENT Eyes: absent: As Per HPI, Blind Spots, Blurred Vision, Change in Vision, Decreased Night Vision, Diplopia, Discharge, Dry Eye, Exophthalmos, Floaters, I rritation, Itchy Eyes, Loss of Peripheral Vision, Pain, Photophobia, Requires Corrective Lenses, Sees Flashes, Spots in Vision, Tunnel Vision, Other Visual Disturbances, Loss of Vision, Other Ears: absent: As Per HPI, Decreased Hearing, Ear Discharge, Ear Pain, Tinnitus, Abnormal Hearing, Disequilibrium, Dizziness, Other Nose/Mouth/Throat: absent: As Per HPI, Epistaxis, Nasal Congestion, Nasal Discharge, Nasal Obstruction, Nasal Trauma, Nose Pain, Post Nasal Drip, Sinus Pain, Sinus Pressure, Bleeding Gums, Change in Voice, Dental Pain, Dry Mouth, Dysphagia, Halitosis, Hoarsness, Lip Swelling, Mouth Lesions, Mouth Pain, Odynophagia, Sore Throat, Throat Swelling, Tongue Swelling, Facial Pain, Neck Pain, Neck Mass, Other - Cardiovascular Cardiovascular: absent: As Per HPI, Acrocyanosis, Chest Pain, Chest Pain at Rest, Chest Pain with Activity, Claudication, Diaphoresis, Dyspnea, Dyspnea on Exertion, Edema, Irregular Heart Rhythm, Pain Radiating to Arm/Neck/Jaw, Leg Edema, Leg Ulcers, Lightheadedness, Orthopnea, Palpitations, Paroxysmal Nocturnal Dyspnea, Pedal Edema, Radiating Pain, Rapid Heart Rate, Slow Heart Rate, Syncope, Other - Respiratory Respiratory: As Per HPI. absent: Hemoptysis - Gastrointestinal Gastrointestinal: As Per HPI - Genitourinary Genitourinary: absent: As Per HPI, Change in Urinary Stream, Difficulty Urinating, Dysuria, Flank Pain, Hematuria, Pyuria, Nocturia, Urinary Incontinence, Urinary Frequency, Urinary Hesitance, Urinary Urgency, Voiding Freq/Small Amts, Freq UTI, Hx Renal/Bladder Calculi, Hx /Renal Surgery, Bladder Distension, Other - Musculoskeletal Musculoskeletal: absent: As Per HPI, Abnormal Gait, Arthralgias, Atrophy, Back Pain, Deformity, Joint Swelling, Limited Range of Motion, Loss of Height, Muscle Cramps, Muscle Weakness, Myalgias, Neck Pain, Numbness, Radiating Pain into Limb, Stiffness, Tingling, Other - Integumentary Integumentary: absent: As Per HPI, Acne, Alopecia, Bleeding Lesions, Change in Hair, Change in Nails, Change in Pigmentation, Changing Lesions, Dry Skin, Erythema, Furuncle, Hirsutism, Lesions, New Lesions, Non-Healing Lesions, Photosensitivity, Pruritus, Rash, Skin Pain, Skin Ulcer, Sores, Striae, Swelling, Unusual Bruising, Wounds, Jaundice, Other - Neurological Neurological: absent: As Per HPI, Abnormal Gait, Abnormal Hearing, Abnormal Movements, Abnormal Speech, Behavioral Changes, Burning Sensations, Confusion, Convulsions, Disequilibrium, Dizziness, Numbness, Focal Weakness, Frequent Falls, Headaches, Lack of Coordination, Loss of Vision, Memory Loss, Paresthesias, Radicular Pain, Restless Legs, Sensory Deficit, Syncope, Tingling, Tremor, Vertigo, Weakness, Other Visual Disturbances, Other - Psychiatric Psychiatric: absent: As Per HPI, Abnormal Sleep Pattern, Anhedonia, Anxiety, Auditory Hallucinations, Behavioral Changes, Change in Appetite, Change in Libido, Confusion, Depression, Difficulty Concentrating, Hallucinations, H omicidal Ideation, Hopelessness, Irritability, Memory Loss, Mood Swings, Panic Attacks, Paranoia, Suicidal Ideation, Visual Hallucinations, Tactile Hallucinations, Other - Endocrine Endocrine: absent: As Per HPI, Change in Body Appearance, Change in Libido, Cold Intolorance, Deepening of Voice, Excessive Sweating, Fatigue, Flushing, Heat Intolorance, Increase in Ring/Shoe/Hat Size, Palpitations, Polydipsia, Polyphagia, Polyuria, Other - Hematologic/Lymphatic Hematologic: absent: As Per HPI, Easy Bleeding, Easy Bruising, Lymphadenopathy, Other Past Patient History - Infectious Disease Hx of Infectious Diseases: None - Tetanus Immunizations Tetanus Immunization: Unknown - Past Medical History & Family History Past Medical History?: Yes - Past Social History Smoking Status: Former Smoker - CARDIAC Hx Congestive Heart Failure: Yes Hx Hypercholesterolemia: Yes Hx Hypertension: Yes Hx Pacemaker: No Hx Peripheral Edema: Yes - PULMONARY Hx Pneumonia: Yes - NEUROLOGICAL Hx Seizures: Yes (pt denies) - HEENT Hx HEENT Problems: Yes (LEFT EYE BLIND) Hx Cataracts: Yes (BILATERAL) Other/Comment: rt eye cataract sx - RENAL Hx Chronic Kidney Disease: Yes - ENDOCRINE/METABOLIC Hx Endocrine Disorders: Yes Hx Diabetes Mellitus Type 2: Yes - HEMATOLOGICAL/ONCOLOGICAL Hx Anemia: Yes - INTEGUMENTARY Hx Dermatological Problems: Yes Other/Comment: 03-03-18 HEALING SACRAL PRESSURE ULCER.SCARRED AREA MORE TO LEFT. - MUSCULOSKELETAL/RHEUMATOLOGICAL Hx Arthritis: Yes Hx Falls: Yes Other/Comment: right hip replacement - GASTROINTESTINAL Hx Hemorrhoids: Yes Hx Pancreatitis: Yes - GENITOURINARY/GYNECOLOGICAL Hx Genitourinary Disorders: Yes Hx Prostate Problems: Yes (R TURP for BPH) - PSYCHIATRIC Hx Substance Use: No - SURGICAL HISTORY Hx Surgeries: Yes Hx Cataract Extraction: Yes Hx Vascular Access Device: Yes Other/Comment: hemorrhoidectomy - ANESTHESIA Hx Anesthesia: Yes Hx Anesthesia Reactions: No Hx Malignant Hyperthermia: No Meds Allergies/Adverse Reactions: Allergies Allergy/AdvReac Type Severity Reaction Status Date / Time No Known Allergies Allergy Verified 03/08/18 17:18 - Medications Medications: Current Medications Amlodipine Besylate (Norvasc) 10 mg PO DAILY [facility] Last Admin: 03/09/18 09:49 Dose: 10 mg Aspirin (Ecotrin) 81 mg PO DAILY [facility] Last Admin: 03/09/18 09:49 Dose: 81 mg Famotidine (Pepcid) 20 mg PO BID [facility] Ferrous Sulfate (Feosol) 325 mg PO BID [facility] Last Admin: 03/09/18 09:48 Dose: 325 mg Gabapentin (Neurontin) 100 mg PO TID [facility] Last Admin: 03/09/18 09:49 Dose: 100 mg Heparin Sodium (Porcine) (Heparin) 5,000 units SC Q12 [facility] Cefepime HCl (Maxipime Iv 2 Gm Premix) 2 gm in 100 mls @ 200 mls/hr IVPB Q8H [facility]; Protocol Stop: 03/13/18 21:01 Last Admin: 03/09/18 04:40 Dose: 200 mls/hr Influenza Virus Vaccine (Fluzone Quad [id number]) 60 mcg IM .ONCE ONE Stop: 03/11/18 10:01 Insulin Aspart (Novolog) 0 unit SC ACHS [facility] Last Admin: 03/09/18 07:59 Dose: 3 units Insulin Aspart (Novolog) 3 unit SC AC [facility] Insulin Detemir (Levemir) 6 unit SC HS [facility] Morphine Sulfate (Morphine) 2 mg IVP Q3H PRN PRN Reason: Pain, moderate (4-7) Last Admin: 03/09/18 09:28 Dose: 2 mg Multivitamins (Hexavitamin) 1 tab PO DAILY [facility] Last Admin: 03/09/18 09:49 Dose: 1 tab Pantoprazole Sodium (Protonix Inj) 40 mg IVP DAILY [facility] Last Admin: 03/09/18 09:49 Dose: 40 mg Rosuvastatin Calcium (Crestor) 5 mg PO HS [facility] Tamsulosin HCl (Flomax) 0.4 mg PO DAILY [facility] Last Admin: 03/09/18 09:49 Dose: 0.4 mg Physical Exam - Constitutional Appears: Non-toxic, No Acute Distress, Cachectic, Chronically Ill - Head Exam Head Exam: ATRAUMATIC, NORMOCEPHALIC - Eye Exam Eye Exam: PERRL. absent: Scleral icterus - ENT Exam ENT Exam: Mucous Membranes Dry, Normal External Ear Exam - Neck Exam Neck exam: Negative for: Lymphadenopathy - Respiratory Exam Respiratory Exam: Decreased Breath Sounds, Rhonchi - Cardiovascular Exam Cardiovascular Exam: REGULAR RHYTHM, +S1, +S2 - GI/Abdominal Exam GI & Abdominal Exam: Diminished Bowel Sounds, Distended, Guarding, Soft, Tenderness. absent: Rebound Additional comments: firm abd exam - Rectal Exam Rectal Exam: Deferred - Exam Exam: NORMAL INSPECTION - Extremities Exam Extremities exam: Negative for: pedal edema - Back Exam Back exam: absent: CVA tenderness (L), CVA tenderness (R) - Neurological Exam Neurological exam: Alert, CN II-XII Intact, Oriented x3, Reflexes Normal - Psychiatric Exam Psychiatric exam: Depressed - Skin Skin Exam: Dry Results - Vital Signs Recent Vital Signs: Last Vital Signs Temp 98.0 F 03/09/18 08:00 Pulse 81 03/09/18 10:15 Resp 15 03/09/18 10:15 BP 119/74 03/09/18 10:15 Pulse Ox 99 03/09/18 08:00 - Labs Result Diagrams: 03/09/18 04:21 03/09/18 04:21 Labs: Laboratory Results - last 24 hr 03/08/18 03/08/18 03/08/18 17:12 18:03 18:50 WBC 4.0 L RBC 4.89 Hgb 12.8 D Hct 40.9 MCV 83.6 D MCH 26.2 L MCHC 31.3 L RDW 19.7 H Plt Count 340 D MPV 8.3 Neut % (Auto) 76.5 H Lymph % (Auto) 18.8 L [place] % (Auto) 3.1 Eos % (Auto) 1.0 Baso % (Auto) 0.6 Neut # (Auto) 3.1 Lymph # (Auto) 0.8 L [place] # (Auto) 0.1 Eos # (Auto) 0.0 Baso # (Auto) 0.0 PT INR APTT Sodium Potassium Chloride Carbon Dioxide Anion Gap BUN Creatinine Est GFR ( Amer) Est GFR (Non-Af Amer) POC Glucose (mg/dL) 130 H 179 H Random Glucose Hemoglobin A1c Calcium Total Bilirubin AST ALT Alkaline Phosphatase Total Creatine Kinase CK-MB (Mass) Troponin I Total Protein Albumin Globulin Albumin/Globulin Ratio Triglycerides Cholesterol LDL Cholesterol Direct HDL Cholesterol Lipase TSH 3rd Generation Urine Color Urine Clarity Urine pH Ur Specific Coila Urine Protein Urine Glucose (UA) Urine Ketones Urine Blood Urine Nitrate Urine Bilirubin Urine Urobilinogen Ur Leukocyte Esterase Urine WBC (Auto) Urine RBC (Auto) Ur Squamous Epith Cells Granular Casts (Auto) 03/08/18 03/08/18 03/08/18 18:50 22:26 22:28 WBC RBC Hgb Hct MCV MCH MCHC RDW Plt Count MPV Neut % (Auto) Lymph % (Auto) [place] % (Auto) Eos % (Auto) Baso % (Auto) Neut # (Auto) Lymph # (Auto) [place] # (Auto) Eos # (Auto) Baso # (Auto) PT INR APTT Sodium 137 Potassium 3.9 Chloride 93 L Carbon Dioxide 30 Anion Gap 18 BUN 35 H Creatinine 1.6 H Est GFR ( Amer) 52 Est GFR (Non-Af Amer) 43 POC Glucose (mg/dL) 282 H Random Glucose 108 Hemoglobin A1c Calcium 8.7 Total Bilirubin 0.7 AST 28 ALT 14 L D Alkaline Phosphatase 161 H Total Creatine Kinase 34 L CK-MB (Mass) 1.88 Troponin I < 0.0120 Total Protein 7.0 Albumin 3.4 L D Globulin 3.6 Albumin/Globulin Ratio 0.9 L Triglycerides Cholesterol LDL Cholesterol Direct HDL Cholesterol Lipase < 10 L TSH 3rd Generation Urine Color Yellow Urine Clarity Clear Urine pH 5.0 Ur Specific [place] 1.020 Urine Protein 2+ H Urine Glucose (UA) 1+ H Urine Ketones Negative Urine Blood 1+ H Urine Nitrate Negative Urine Bilirubin Negative Urine Urobilinogen Normal Ur Leukocyte Esterase Neg Urine WBC (Auto) 3 Urine RBC (Auto) < 1 Ur Squamous Epith Cells 1 Granular Casts (Auto) 59 03/09/18 03/09/18 03/09/18 04:21 04:21 04:21 WBC 9.2 D RBC 3.92 L Hgb 10.1 L D Hct 33.0 L MCV 84.0 MCH 25.8 L MCHC 30.6 L RDW 20.0 H Plt Count 282 MPV 8.3 Neut % (Auto) Lymph % (Auto) [place] % (Auto) Eos % (Auto) Baso % (Auto) Neut # (Auto) Lymph # (Auto) [place] # (Auto) Eos # (Auto) Baso # (Auto) PT 11.7 INR 1.1 APTT 28 Sodium 133 Potassium 5.7 H Chloride 92 L Carbon Dioxide 26 Anion Gap 19 BUN 35 H Creatinine 1.8 H Est GFR ( Amer) 45 Est GFR (Non-Af Amer) 37 POC Glucose (mg/dL) Random Glucose 276 H Hemoglobin A1c Calcium 8.4 L Total Bilirubin 0.8 AST 44 ALT 15 L Alkaline Phosphatase 178 H Total Creatine Kinase CK-MB (Mass) Troponin I Total Protein 6.6 Albumin 3.1 L Globulin 3.5 Albumin/Globulin Ratio 0.9 L Triglycerides Cholesterol LDL Cholesterol Direct HDL Cholesterol Lipase TSH 3rd Generation Urine Color Urine Clarity Urine pH Ur Specific [place] Urine Protein Urine Glucose (UA) Urine Ketones Urine Blood Urine Nitrate Urine Bilirubin Urine Urobilinogen Ur Leukocyte Esterase Urine WBC (Auto) Urine RBC (Auto) Ur Squamous Epith Cells Granular Casts (Auto) 03/09/18 03/09/18 03/09/18 04:21 04:21 07:21 WBC RBC Hgb Hct MCV MCH MCHC RDW Plt Count MPV Neut % (Auto) Lymph % (Auto) [place] % (Auto) Eos % (Auto) Baso % (Auto) Neut # (Auto) Lymph # (Auto) [place] # (Auto) Eos # (Auto) Baso # (Auto) PT INR APTT Sodium Potassium Chloride Carbon Dioxide Anion Gap BUN Creatinine Est GFR ( Amer) Est GFR (Non-Af Amer) POC Glucose (mg/dL) 327 H Random Glucose Hemoglobin A1c 10.0 H Calcium Total Bilirubin AST ALT Alkaline Phosphatase Total Creatine Kinase CK-MB (Mass) Troponin I Total Protein Albumin Globulin Albumin/Globulin Ratio Triglycerides 75 D Cholesterol 106 LDL Cholesterol Direct < 30 HDL Cholesterol 67 Lipase TSH 3rd Generation 3.00 Urine Color Urine Clarity Urine pH Ur Specific [place] Urine Protein Urine Glucose (UA) Urine Ketones Urine Blood Urine Nitrate Urine Bilirubin Urine Urobilinogen Ur Leukocyte Esterase Urine WBC (Auto) Urine RBC (Auto) Ur Squamous Epith Cells Granular Casts (Auto) 03/09/18 11:13 WBC RBC Hgb Hct MCV MCH MCHC RDW Plt Count MPV Neut % (Auto) Lymph % (Auto) [place] % (Auto) Eos % (Auto) Baso % (Auto) Neut # (Auto) Lymph # (Auto) [place] # (Auto) Eos # (Auto) Baso # (Auto) PT INR APTT Sodium Potassium Chloride Carbon Dioxide Anion Gap BUN Creatinine Est GFR ( Amer) Est GFR (Non-Af Amer) POC Glucose (mg/dL) 205 H Random Glucose Hemoglobin A1c Calcium Total Bilirubin AST ALT Alkaline Phosphatase Total Creatine Kinase CK-MB (Mass) Troponin I Total Protein Albumin Globulin Albumin/Globulin Ratio Triglycerides Cholesterol LDL Cholesterol Direct HDL Cholesterol Lipase TSH 3rd Generation Urine Color Urine Clarity Urine pH Ur Specific [place] Urine Protein Urine Glucose (UA) Urine Ketones Urine Blood Urine Nitrate Urine Bilirubin Urine Urobilinogen Ur Leukocyte Esterase Urine WBC (Auto) Urine RBC (Auto) Ur Squamous Epith Cells Granular Casts (Auto) Assessment & Plan (1) Hypoglycemia Status: Acute (2) Pneumonia Status: Acute (3) Abdominal pain Status: Acute (4) Acidosis Status: Acute (5) Acute on chronic renal insufficiency Status: Acute - Assessment and Plan (Free Text) Assessment: cont iv antibiotics check cultures blood urine sputum , consider CT chest abd pelvis, hydration GI re-eval
--- NOTE | 2018-03-09 14:32 | PN ---
DATE: 03/09/2018 ENDOCRINOLOGY FOLLOWUP NOTE LOCATION: In ICU room 11. SUBJECTIVE: This is a 72-year-old male with recent uncontrolled type 2 insulin-requiring diabetes, presenting here with an acute pneumonitis, currently receiving IV antibiotics and is also being followed closely for metabolic management because of extreme glycemic fluctuations of very well known from the prior multiple hospital readmission in both [facility] and [facility]. His latest glucose levels overnight are fluctuating with hyperglycemic accelerations as noted once again. His glucose values have ranged from 282 to 327 mg/dL. His A1c is 10%, which is quite elevated and indicative of suboptimal metabolic control with diabetic condition as noted from the extremes of metabolic liability. LABORATORY DATA: His chemistry showed a BUN of 35, sodium 133, potassium 5.7, chloride 92, CO2 of 26, glucose 276, and creatinine 1.8. ASSESSMENT: This is a 72-year-old male with uncontrolled and decompensated type 2 insulin-requiring diabetes, presenting here with an acute pneumonitis and currently also being followed closely for metabolic management because of extremes of glycemic fluctuations as noted. He also has diabetic microvascular complications of retinopathy, polyneuropathy and nephropathy with underlying chronic kidney disease. Moreover he also has known history of diabetic macrovascular complications with coronary artery disease and peripheral arterial disease and vasculopathy. PLAN OF MANAGEMENT: We will once again prudently start him on a very low dose of basal and bolus insulin regimen as ordered starting today. We will add NovoLog given as 3 units subcu t.i.d. before meals to start today. We will continue the very low dose correction scale using NovoLog insulin for glucose levels only above 300 and detailed orders have been given. We will add basal insulin with Levemir to be given as 6 units subcu at bedtime daily to start tonight. We will titrate incrementally as indicated to optimize metabolic control. We will obtain serial chemistries and supplement accordingly as needed. We will follow. Myrna Sheffield MD
[2018-03-09] MEDS: Moxifloxacin IV 400mg/250ml NS 400 MG/250 ML BAG IVPB SCH (14:54)
[2018-03-09 19:04] LABS: SQUAMOUS EPITHIAL < 1 /hpf (0-5); URINE BACTERIA RARE (<OCC); URINE BILIRUBIN NEGATIVE (NEGATIVE); URINE CLARITY Clear (Clear); URINE COLOR Yellow (YELLOW); URINE GLUCOSE (UA) 1+ mg/dL (Normal); URINE LEUKOCYTE ESTERASE NEG Leu/uL (Negative); URINE PROTEIN 2+ mg/dL (NEGATIVE); URINE UROBILINOGEN NORMAL mg/dL (0.2-1.0)
[2018-03-09 19:05] LABS: URINE BLOOD TRACE (NEGATIVE)
[2018-03-09] MEDS: Insulin Detemir 100 units/ml Vial (Levemir) SC SCH (21:37)
--- NOTE | 2018-03-09 22:53 | CARD ---
APPROVED REPORT Date of service: 03/08/2018 EKG Measurement Heart [id number] <Conclusion> Normal sinus rhythm Normal ECG
[2018-03-10] MEDS: Cefepime IV 2 gm in Dextrose 2 GM/100 ML BAG IVPB SCH ×2 (04:49→13:42)
[2018-03-10 06:14] LABS: HEMOGLOBIN 9.6 g/dL (12.0-18.0); MEAN CELL VOLUME 83.8 fL (80.0-94.0); MEAN CORPUSCULAR HEMOGLOBIN 26.6 pg (27.0-31.0); MEAN CORPUSCULAR HGB CONC 31.7 g/dL (33.0-37.0); MEAN PLATELET VOLUME 7.8 fL (7.2-11.7); RBC 3.62 Mil/uL (4.40-5.90); RED CELL DISTRIBUTION WIDTH 18.8 % (11.5-14.5); WHITE BLOOD COUNT 6.3 K/uL (4.8-10.8)
[2018-03-10 07:03] LABS: HEPATITIS B SURFACE AG Negative (NEGATIVE)
[2018-03-10 07:09] LABS: HEPATITIS A IGM NEGATIVE (NEGATIVE); HEPATITIS B CORE AB NEGATIVE (NEGATIVE)
[2018-03-10 07:10] LABS: ALB/GLOB RATIO 0.9 (1.0-2.1); ALBUMIN 2.8 g/dL (3.5-5.0)
[2018-03-10] MEDS: (Novolog) Insulin Aspart, Recombinant 100 u/ml 10 ml vial SC SCH ×7 (07:58→21:53)
[2018-03-10 08:45] LABS: HEPATITIS C ANTIBODY REACTIVE (NEGATIVE)
[2018-03-10] MEDS: Multiple Vitamins Tab PO SCH (10:26)
--- NOTE | 2018-03-10 11:31 | PN ---
DATE: 03/10/2018 SUBJECTIVE: I saw him in the intensive care unit this morning. He is resting comfortably. He is ICU team for the PICC line and the peripheral line, so far it is working. He is also telling me he wants to leave the hospice and going to sign out again, I asked him not to. PHYSICAL EXAMINATION: GENERAL: He is atraumatic, normocephalic. VITAL SIGNS: He has 98.4 temperature, 66 pulse, 16 respiratory rate. He is on 2 liters nasal cannula. HEART: Regular rate. LUNGS: Decreased breath sounds, but clear bilaterally. ABDOMEN: Soft. EXTREMITIES: No edema. MEDICATIONS: He is currently on Avelox IV, Crestor, Ecotrin, Feosol, Flomax, heparin, multivitamins, Levemir, cefepime IV, morphine for pain, Neurontin, Norvasc, NovoLog, Protonix. LABORATORY DATA: He has a white count of 9.2, hemoglobin 10.1, hematocrit 32, platelets 282. Sodium 133, potassium 5.7, Kayexalate was given. BUN 35, creatinine 1.8. GFR is 37. Sugar was 276, hemoglobin A1c was 10. Total bili is 0.8, AST is 44, ALT is 50, alkaline phosphatase 178, total protein 6.6, triglyceride 75, total cholesterol is 106. TSH was 3. ASSESSMENT AND PLAN: He is being seen by Endocrinology and Infectious Disease, on intravenous antibiotics. We will check his labs tomorrow, out of bed to chair. Physical therapy is ordered. I am hoping he will not against medical advice and we can finish his treatment for his multifocal pneumonia. Zohaib Morgan DO MTDGeoffrey
--- NOTE | 2018-03-10 12:24 | CP.PCM.PN ---
Subjective - Date & Time of Evaluation Date of Evaluation: 03/10/18 Time of Evaluation: 08:00 - Subjective Subjective: Admitted to ICU for pneumonia right lung ID consulted for antibiotic management Hep C reactive Objective - Vital Signs/Intake and Output Vital Signs (last 24 hours): Temp Pulse Resp BP Pulse Ox 98.2 F 98 H 19 133/91 H 100 03/10/18 08:00 03/10/18 08:00 03/10/18 08:00 03/10/18 08:00 03/10/18 08:00 Intake and Output: 03/10/18 03/10/18 06:59 18:59 Intake Total 650 Output Total 600 Balance 50 - Medications Medications: Current Medications Amlodipine Besylate (Norvasc) 10 mg PO DAILY [facility] Last Admin: 03/10/18 10:27 Dose: 10 mg Aspirin (Ecotrin) 81 mg PO DAILY [facility] Last Admin: 03/10/18 10:25 Dose: 81 mg Ferrous Sulfate (Feosol) 325 mg PO BID [facility] Last Admin: 03/10/18 10:25 Dose: 325 mg Gabapentin (Neurontin) 100 mg PO TID [facility] Last Admin: 03/10/18 10:26 Dose: 100 mg Heparin Sodium (Porcine) (Heparin) 5,000 units SC Q12 [facility] Last Admin: 03/10/18 10:26 Dose: 5,000 units Cefepime HCl (Maxipime Iv 2 Gm Premix) 2 gm in 100 mls @ 200 mls/hr IVPB Q8H [facility]; Protocol Stop: 03/13/18 21:01 Last Admin: 03/10/18 04:49 Dose: 200 mls/hr Moxifloxacin HCl (Avelox Iv 400mg/250ml Ns) 400 mg in 250 mls @ 167 mls/hr IVPB Q24H [facility]; Protocol Last Admin: 03/09/18 14:54 Dose: 167 mls/hr Influenza Virus Vaccine (Fluzone Quad [id number]) 60 mcg IM .ONCE ONE Stop: 03/11/18 10:01 Insulin Aspart (Novolog) 0 unit SC ACHS [facility] Last Admin: 03/10/18 07:58 Dose: Not Given Insulin Aspart (Novolog) 3 unit SC AC [facility] Last Admin: 03/10/18 08:05 Dose: 3 units Insulin Detemir (Levemir) 6 unit SC HS [facility] Last Admin: 03/09/18 21:37 Dose: Not Given Morphine Sulfate (Morphine) 2 mg IVP Q3H PRN PRN Reason: Pain, moderate (4-7) Last Admin: 03/10/18 08:05 Dose: 2 mg Multivitamins (Hexavitamin) 1 tab PO DAILY [facility] Last Admin: 03/10/18 10:26 Dose: 1 tab Pantoprazole Sodium (Protonix Inj) 40 mg IVP DAILY [facility] Last Admin: 03/10/18 10:26 Dose: 40 mg Rosuvastatin Calcium (Crestor) 5 mg PO [facility] Last Admin: 03/09/18 21:36 Dose: 5 mg Tamsulosin HCl (Flomax) 0.4 mg PO DAILY [facility] Last Admin: 03/10/18 10:25 Dose: 0.4 mg - Labs Labs: 03/10/18 06:02 03/10/18 06:02 PT 11.7 SECONDS (9.7-12.2) 03/09/18 04:21 INR 1.1 03/09/18 04:21 APTT 28 SECONDS (21-34) 03/09/18 04:21 - Constitutional Appears: Cachectic, Chronically Ill - Head Exam Head Exam: NORMOCEPHALIC - Eye Exam Eye Exam: absent: Scleral icterus - ENT Exam ENT Exam: Mucous Membranes Dry - Neck Exam Neck Exam: absent: Lymphadenopathy - Respiratory Exam Respiratory Exam: Decreased Breath Sounds - Cardiovascular Exam Cardiovascular Exam: REGULAR RHYTHM - GI/Abdominal Exam GI & Abdominal Exam: Distended - Rectal Exam Rectal Exam: Deferred Assessment and Plan (1) Hypoglycemia Status: Acute (2) Pneumonia Status: Acute (3) Abdominal pain Status: Acute (4) Acidosis Status: Acute (5) Acute on chronic renal insufficiency Status: Acute
[2018-03-10] MEDS: Moxifloxacin IV 400mg/250ml NS 400 MG/250 ML BAG IVPB SCH (16:05)
--- NOTE | 2018-03-10 20:09 | PN ---
DATE: 03/10/2018 ENDOCRINOLOGY FOLLOWUP NOTE LOCATION: In ICU room 11. SUBJECTIVE: This is a 72-year-old male with recent uncontrolled type 2 insulin-requiring diabetes, now being followed closely for metabolic management. He is also receiving IV antibiotic management for bilateral pneumonitis as noted. His oral intake remains quite variable as per the nursing staff and glycemic fluctuations have been noted overnight with glucose values ranging from 106 to 276 and 322 mg/dL today. LABORATORY DATA: His chemistries showed a BUN of 34, sodium 129, potassium 5.4, chloride 93, CO2 of 24, glucose 237, and creatinine 1.6. ASSESSMENT AND PLAN: So at this time, we will continue the same basal and bolus insulin regimen to allow for dose equilibration and also because of the variability of his oral intake as noted. We will keep the Levemir at 6 units subcutaneously at bedtime daily as given with Novolog given as 3 units subcutaneously thrice a day before meals as ordered. We will obtain serial chemistries and supplement accordingly as needed. We will follow up. Myrna Sheffield MD
[2018-03-10] MEDS: Insulin Detemir 100 units/ml Vial (Levemir) SC SCH (21:53)
[2018-03-11] MEDS: Cefepime IV 2 gm in Dextrose 2 GM/100 ML BAG IVPB SCH ×2 (01:11→14:39)
[2018-03-11] MEDS ORDERED: Insulin Detemir 100 units/ml Vial (Levemir) SC SCH (05:37)
[2018-03-11 06:02] LABS: HEMOGLOBIN 8.4 g/dL (12.0-18.0); MEAN CELL VOLUME 82.9 fL (80.0-94.0); MEAN CORPUSCULAR HEMOGLOBIN 26.1 pg (27.0-31.0); MEAN CORPUSCULAR HGB CONC 31.5 g/dL (33.0-37.0); RBC 3.22 Mil/uL (4.40-5.90); RED CELL DISTRIBUTION WIDTH 19.1 % (11.5-14.5)
[2018-03-11 06:25] LABS: ALB/GLOB RATIO 0.9 (1.0-2.1); ALBUMIN 2.5 g/dL (3.5-5.0); CALCIUM 8.1 mg/dl (8.6-10.4)
[2018-03-11] MEDS: (Novolog) Insulin Aspart, Recombinant 100 u/ml 10 ml vial SC SCH ×7 (08:13→22:32)
--- NOTE | 2018-03-11 09:09 | CP.PCM.CON ---
<Alex Cooper - Last Filed: 03/11/18 11:46> History of Present Illness - History of Present Illness History of Present Illness: PGY6 GI Fellow Consult Note Patient is a 72yo male with PMHx significant for uncontroleld DM with multiple episodes of DKA, recently [place] [facility] [place], CAD, CHF, HTN, HLD, PUD who was admitted for altered mental status related to hypoglycemia. He was recently admitted but [place] [facility] [place] Our service has been consulted for evaluation of HCV Ab positive on screening. The patient does have a history of heavy EtOH abuse but has been sober 30 years. He denies any illicit drug use currently or previously and denies any sexual promiscuity. Admits to being told he was HCV+ in the 1970s but never received any formal treatment and never followed up for this issue. 12 point ROS negative other than stated above PMHx: See HPI PSHx: left shoulder torn ligament, right hip replacement, TURP, B/L inguinal hernia repair 04/2014 FHx: denies colon cancer Social: prior [id number] years(quit 30 years), heavy alcohol abuse for 20 years, endorsed sobriety for 30 years, denies illicit drug use Endo: Colon 07/13 - poor prep EGD 04/11 - fundic ulcer, LA B esophagitis Past Patient History - Infectious Disease Hx of Infectious Diseases: None - Tetanus Immunizations Tetanus Immunization: Unknown - Past Medical History & Family History Past Medical History?: Yes - Past Social History Smoking Status: Former Smoker - CARDIAC Hx Congestive Heart Failure: Yes Hx Hypercholesterolemia: Yes Hx Hypertension: Yes - PULMONARY Hx Pneumonia: Yes - NEUROLOGICAL Hx Seizures: Yes (pt denies) - HEENT Hx HEENT Problems: Yes (LEFT EYE BLIND) Hx Cataracts: Yes (BILATERAL) Other/Comment: rt eye cataract sx - RENAL Hx Chronic Kidney Disease: Yes - ENDOCRINE/METABOLIC Hx Diabetes Mellitus Type 2: Yes - HEMATOLOGICAL/ONCOLOGICAL Hx Anemia: Yes - INTEGUMENTARY Hx Dermatological Problems: Yes Other/Comment: 03-03-18 HEALING SACRAL PRESSURE ULCER.SCARRED AREA MORE TO LEFT. - MUSCULOSKELETAL/RHEUMATOLOGICAL Hx Arthritis: Yes - GASTROINTESTINAL Hx Hemorrhoids: Yes Hx Pancreatitis: Yes - GENITOURINARY/GYNECOLOGICAL Hx Genitourinary Disorders: Yes Hx Prostate Problems: Yes (R TURP for BPH) - PSYCHIATRIC Hx Substance Use: No - SURGICAL HISTORY Hx Surgeries: Yes Hx Cataract Extraction: Yes Hx Vascular Access Device: Yes Other/Comment: hemorrhoidectomy - ANESTHESIA Hx Anesthesia: Yes Hx Anesthesia Reactions: No Hx Malignant Hyperthermia: No Meds Allergies/Adverse Reactions: Allergies Allergy/AdvReac Type Severity Reaction Status Date / Time No Known Allergies Allergy Verified 03/08/18 17:18 - Medications Medications: Current Medications Amlodipine Besylate (Norvasc) 10 mg PO DAILY [facility] Last Admin: 03/10/18 10:27 Dose: 10 mg Aspirin (Ecotrin) 81 mg PO DAILY [facility] Last Admin: 03/10/18 10:25 Dose: 81 mg Ferrous Sulfate (Feosol) 325 mg PO BID [facility] Last Admin: 03/10/18 18:17 Dose: 325 mg Gabapentin (Neurontin) 100 mg PO TID [facility] Last Admin: 03/10/18 18:17 Dose: 100 mg Heparin Sodium (Porcine) (Heparin) 5,000 units SC Q12 [facility] Last Admin: 03/10/18 21:54 Dose: 5,000 units Moxifloxacin HCl (Avelox Iv 400mg/250ml Ns) 400 mg in 250 mls @ 167 mls/hr IVPB Q24H [facility]; Protocol Last Admin: 03/10/18 16:05 Dose: 167 mls/hr Cefepime HCl (Maxipime Iv 2 Gm Premix) 2 gm in 100 mls @ 200 mls/hr IVPB Q12H [facility]; Protocol Stop: 03/13/18 01:44 Last Admin: 03/11/18 01:11 Dose: 200 mls/hr Influenza Virus Vaccine (Fluzone Quad [id number]) 60 mcg IM .ONCE ONE Stop: 03/11/18 10:01 Insulin Aspart (Novolog) 0 unit SC ACHS [facility] Last Admin: 03/11/18 08:13 Dose: Not Given Insulin Aspart (Novolog) 3 unit SC AC [facility] Last Admin: 03/11/18 08:22 Dose: 3 units Insulin Detemir (Levemir) 8 unit SC HS [facility] Morphine Sulfate (Morphine) 2 mg IVP Q3H PRN PRN Reason: Pain, moderate (4-7) Last Admin: 03/11/18 08:22 Dose: 2 mg Multivitamins (Hexavitamin) 1 tab PO DAILY [facility] Last Admin: 03/10/18 10:26 Dose: 1 tab Pantoprazole Sodium (Protonix Inj) 40 mg IVP DAILY [facility] Last Admin: 03/10/18 10:26 Dose: 40 mg Rosuvastatin Calcium (Crestor) 5 mg PO HS [facility] Last Admin: 03/10/18 21:54 Dose: 5 mg Tamsulosin HCl (Flomax) 0.4 mg PO DAILY [facility] Last Admin: 03/10/18 10:25 Dose: 0.4 mg Physical Exam - Constitutional Appears: Non-toxic, No Acute Distress - Eye Exam Eye Exam: EOMI, PERRL - ENT Exam ENT Exam: Mucous Membranes Moist - Respiratory Exam Respiratory Exam: Rales, Rhonchi. absent: Clear to Auscultation Bilateral, Wheezes - Cardiovascular Exam Cardiovascular Exam: RRR, +S1, +S2 - GI/Abdominal Exam GI & Abdominal Exam: Normal Bowel Sounds, Soft. absent: Distended, Firm, Guarding, Rigid, Tenderness - Extremities Exam Extremities exam: Positive for: normal inspection. Negative for: pedal edema - Neurological Exam Neurological exam: Alert, Oriented x3 - Psychiatric Exam Psychiatric exam: Normal Affect, Normal Mood - Skin Skin Exam: Dry, Warm Results - Vital Signs Recent Vital Signs: Last Vital Signs Temp 97.7 F 03/11/18 08:00 Pulse 106 H 03/11/18 08:00 Resp 18 03/11/18 08:00 BP 130/88 03/11/18 08:00 Pulse Ox 95 03/11/18 08:00 - Labs Result Diagrams: 03/11/18 05:54 03/11/18 05:54 Labs: Laboratory Results - last 24 hr 03/10/18 03/10/18 03/10/18 07:26 11:18 16:27 WBC RBC Hgb Hct MCV MCH MCHC RDW Plt Count MPV Sodium Potassium Chloride Carbon Dioxide Anion Gap BUN Creatinine Est GFR ( Amer) Est GFR (Non-Af Amer) POC Glucose (mg/dL) 276 H 322 H 245 H Random Glucose Calcium Total Bilirubin AST ALT Alkaline Phosphatase Ammonia Total Protein Albumin Globulin Albumin/Globulin Ratio Alpha Fetoprotein Cortisol AM Sample 03/10/18 03/11/18 03/11/18 21:23 05:54 05:54 WBC 6.0 RBC 3.22 L Hgb 8.4 L Hct 26.7 L MCV 82.9 MCH 26.1 L MCHC 31.5 L RDW 19.1 H Plt Count 199 MPV 8.0 Sodium 130 L Potassium 4.6 Chloride 96 L Carbon Dioxide 27 Anion Gap 12 BUN 36 H Creatinine 1.7 H Est GFR ( Amer) 48 Est GFR (Non-Af Amer) 40 POC Glucose (mg/dL) 75 Random Glucose 158 H Calcium 8.1 L Total Bilirubin 0.7 AST 21 ALT 22 Alkaline Phosphatase 135 H Ammonia Total Protein 5.3 L Albumin 2.5 L Globulin 2.9 Albumin/Globulin Ratio 0.9 L Alpha Fetoprotein Cortisol AM Sample 03/11/18 03/11/18 03/11/18 05:54 05:54 05:54 WBC RBC Hgb Hct MCV MCH MCHC RDW Plt Count MPV Sodium Potassium Chloride Carbon Dioxide Anion Gap BUN Creatinine Est GFR ( Amer) Est GFR (Non-Af Amer) POC Glucose (mg/dL) Random Glucose Calcium Total Bilirubin AST ALT Alkaline Phosphatase Ammonia < 9 L Total Protein Albumin Globulin Albumin/Globulin Ratio Alpha Fetoprotein 1.8 Cortisol AM Sample 21.5 Assessment & Plan - Assessment and Plan (Free Text) Assessment: Patient is a 72yo male with PMHx significant for uncontroleld DM with multiple episodes of DKA, recently [place] [facility] [place], CAD, CHF, HTN, HLD, PUD who was admitted for altered mental status related to hypoglycemia. He was recently admitted but [place] [facility] [place]. -Multifocal pneumonia -Altered mental status, resolved -HCV Ab positive Plan: -Regarding the patient's finding of HCV Ab+, a confirmatory test was sent by ID (HCV RNA Qualitative) -CT from 03/04/18 and prior U/S from November reviewed - no evidence for mass lesions or liver abnormalities -LFTs WNL -No evidence of cirrhosis -Recommend outpatient follow up for evaluation and treatment of HCV - will ultimately require HCV RNA VL and Genotype if confirmed positive -Diet as tolerated - Date & Time Date: 03/11/18 Time: 06:30 <Rubén Rdz - Last Filed: 03/11/18 19:10> Meds - Medications Medications: Current Medications Amlodipine Besylate (Norvasc) 10 mg PO DAILY [facility] Last Admin: 03/11/18 09:57 Dose: 10 mg Aspirin (Ecotrin) 81 mg PO DAILY [facility] Last Admin: 03/11/18 09:53 Dose: 81 mg Ferrous Sulfate (Feosol) 325 mg PO BID [facility] Last Admin: 03/11/18 17:43 Dose: 325 mg Gabapentin (Neurontin) 100 mg PO TID [facility] Last Admin: 03/11/18 17:43 Dose: 100 mg Heparin Sodium (Porcine) (Heparin) 5,000 units SC Q12 [facility] Last Admin: 03/11/18 09:53 Dose: 5,000 units Hydroxyzine HCl (Atarax) 25 mg PO Q6 PRN PRN Reason: Agitation Moxifloxacin HCl (Avelox Iv 400mg/250ml Ns) 400 mg in 250 mls @ 167 mls/hr IVPB Q24H [facility]; Protocol Last Admin: 03/11/18 14:39 Dose: 167 mls/hr Cefepime HCl (Maxipime Iv 2 Gm Premix) 2 gm in 100 mls @ 200 mls/hr IVPB Q12H [facility]; Protocol Stop: 03/13/18 01:44 Last Admin: 03/11/18 14:39 Dose: 200 mls/hr Insulin Aspart (Novolog) 0 unit SC ACHS [facility] Last Admin: 03/11/18 17:46 Dose: 3 units Insulin Aspart (Novolog) 3 unit SC AC [facility] Last Admin: 03/11/18 17:46 Dose: 3 units Insulin Detemir (Levemir) 6 unit SC HS [facility] Lorazepam (Ativan) 1 mg PO Q6 PRN PRN Reason: Agitation Mirtazapine (Remeron) 15 mg PO HS [facility] Morphine Sulfate (Morphine) 2 mg IVP Q3H PRN PRN Reason: Pain, moderate (4-7) Last Admin: 03/11/18 08:22 Dose: 2 mg Multivitamins (Hexavitamin) 1 tab PO DAILY [facility] Last Admin: 03/11/18 09:53 Dose: 1 tab Pantoprazole Sodium (Protonix Inj) 40 mg IVP DAILY [facility] Last Admin: 03/11/18 09:53 Dose: 40 mg Rosuvastatin Calcium (Crestor) 5 mg PO HS [facility] Last Admin: 03/10/18 21:54 Dose: 5 mg Tamsulosin HCl (Flomax) 0.4 mg PO DAILY [facility] Last Admin: 03/11/18 09:53 Dose: 0.4 mg Trazodone HCl (Desyrel) 50 mg PO HS [facility] Results - Vital Signs Recent Vital Signs: Last Vital Signs Temp 98.0 F 03/11/18 16:00 Pulse 80 03/11/18 18:00 Resp 16 03/11/18 16:00 BP 122/67 03/11/18 12:00 Pulse Ox 98 03/11/18 16:00 - Labs Result Diagrams: 03/11/18 05:54 03/11/18 05:54 Labs: Laboratory Results - last 24 hr 03/10/18 03/11/18 03/11/18 21:23 05:54 05:54 WBC 6.0 RBC 3.22 L Hgb 8.4 L Hct 26.7 L MCV 82.9 MCH 26.1 L MCHC 31.5 L RDW 19.1 H Plt Count 199 MPV 8.0 Sodium 130 L Potassium 4.6 Chloride 96 L Carbon Dioxide 27 Anion Gap 12 BUN 36 H Creatinine 1.7 H Est GFR ( Amer) 48 Est GFR (Non-Af Amer) 40 POC Glucose (mg/dL) 75 Random Glucose 158 H Calcium 8.1 L Total Bilirubin 0.7 AST 21 ALT 22 Alkaline Phosphatase 135 H Ammonia Total Protein 5.3 L Albumin 2.5 L Globulin 2.9 Albumin/Globulin Ratio 0.9 L Alpha Fetoprotein Cortisol AM Sample 03/11/18 03/11/18 03/11/18 05:54 05:54 05:54 WBC RBC Hgb Hct MCV MCH MCHC RDW Plt Count MPV Sodium Potassium Chloride Carbon Dioxide Anion Gap BUN Creatinine Est GFR ( Amer) Est GFR (Non-Af Amer) POC Glucose (mg/dL) Random Glucose Calcium Total Bilirubin AST ALT Alkaline Phosphatase Ammonia < 9 L Total Protein Albumin Globulin Albumin/Globulin Ratio Alpha Fetoprotein 1.8 Cortisol AM Sample 21.5 Attending/Attestation - Attestation I have personally seen and examined this patient.: Yes I have fully participated in the care of the patient.: Yes I have reviewed all pertinent clinical information: Yes Notes (Text): 03/11/18 19:05 I have seen and examined patient with GI fellow. Agree with above documentation with the following additions. In brief, this is a 72 year old male with history of DM (uncontrolled, labile), CKD, CAD, CHF, who was admitted to hospital for altered mental status related to hypoglycemia. During hospital course was also found to have pneumonia and currently undergoing treatment. GI called for evaluation of positive HCV antibody noted on examination. He admits to being diagnosed in 1970s, treatment naive. He denies abdominal pain, nausea, vomiting, weight loss, rectal bleeding, or change in bowel habits. He denies illicit drug use or sexual promiscuity, mode of transmission unclear. Additional physical examination: Abdomen: no palpable hepato/splenomegaly DM - uncontrolled Pneumonia CKD CAD CHF HCV Abdominal US and recent CT imaging reviewed by me showing non-cirrhotic liver without presence of mass lesions - Diet as tolerated - Continue with antibiotic therapy as per medical team - Follow up endocrinology recommendations regarding uncontrolled DM - Obtain HCV viral load - Patient will require additional outpatient follow up with consideration of potential treatment with all oral therapy if willing to establish outpatient care. No further planned GI intervention, will sign off case. Please reconsult as necessary, thank you.
[2018-03-11] MEDS: Multiple Vitamins Tab PO SCH (09:53)
[2018-03-11] MEDS ORDERED: Influenza Vaccine 60 MCG/0.5 ML SYR (3 yr & up) IM ONE (10:00)
--- NOTE | 2018-03-11 10:14 | PCM.PSYCH ---
Initial Psychiatric Evaluation - Initial Psychiatric Evaluation Type of Admission: Voluntary Legal Status: Capacity Chief Complaint (in patient's own words): "I am alright" History of Present Illness and Precipitating Events: Patient is a 72-year-old male, with 4 adult children. 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 Patient is currently in ICU due to DKA and diabetes complications. He left [facility] on 03/06/19 where he went for sepsis and labile blood glucose level. He came to the [facility] two days later with low temperature (92 F) and DM problems. He again wants to leave the hospital AM. Psych is consulted to evaluate patient for altered mental status and capacity to make medical decisions. Patient is calm and cooperative at the time of the interview. He understands and answers the questions appropriately. He has a good eye contact and normal speech. He is orientated to the person, time, and place. He is able to provide his personal information correctly. He is alert and focused. His attention is within normal limits. He denies having any visual or auditory hallucinations. He also denies any suicidal or homicidal thoughts. Patient states that he wants to leave the hospital as he has been here for a long time. He is slightly agitated with the questioning but easy to communicate. He states that he understands why he is in the hospital and understands the risks if he leaves [facility]. He does not complain about pain or any other physical symptom at the time of the interview. Current Medications: Active Medications Generic Name Dose Route Start Last Admin Trade Name Edgardo PRN Reason Stop Dose Admin Amlodipine Besylate 10 mg 03/09/18 10:00 03/11/18 09:57 Norvasc PO 10 mg DAILY [facility] Administration Aspirin 81 mg 03/09/18 10:00 03/11/18 09:53 Ecotrin PO 81 mg DAILY [facility] Administration Ferrous Sulfate 325 mg 03/09/18 10:00 03/11/18 09:53 Feosol PO 325 mg BID [facility] Administration Gabapentin 100 mg 03/09/18 10:00 03/11/18 09:53 Neurontin PO 100 mg TID [facility] Administration Heparin Sodium (Porcine) 5,000 units 03/09/18 10:30 03/11/18 09:53 Heparin SC 5,000 units Q12 [facility] Administration Moxifloxacin HCl 400 mg in 250 mls @ 167 mls/hr 03/09/18 14:00 03/10/18 16:05 Avelox Iv 400mg/250ml Ns IVPB 167 mls/hr Q24H [facility] Administration Protocol Cefepime HCl 2 gm in 100 mls @ 200 mls/hr 03/11/18 01:43 03/11/18 01:11 Maxipime Iv 2 Gm Premix IVPB 03/13/18 01:44 200 mls/hr Q12H [facility] Administration Protocol Insulin Aspart 0 unit 03/09/18 07:30 03/11/18 08:13 Novolog SC Not Given ACHS [facility] Insulin Aspart 3 unit 03/09/18 11:30 03/11/18 08:22 Novolog SC 3 units AC [facility] Administration Insulin Detemir 8 unit 03/11/18 05:37 Levemir SC HS [facility] Morphine Sulfate 2 mg 03/09/18 05:52 03/11/18 08:22 Morphine IVP 2 mg Q3H PRN Administration Pain, moderate (4-7) Multivitamins 1 tab 03/09/18 10:00 03/11/18 09:53 Hexavitamin PO 1 tab DAILY [facility] Administration Pantoprazole Sodium 40 mg 03/09/18 10:00 03/11/18 09:53 Protonix Inj IVP 40 mg DAILY [facility] Administration Rosuvastatin Calcium 5 mg 03/09/18 22:00 03/10/18 21:54 Crestor PO 5 mg HS [facility] Administration Tamsulosin HCl 0.4 mg 03/09/18 10:00 03/11/18 09:53 Flomax PO 0.4 mg DAILY [facility] Administration Past Psychiatric History - Past Psychiatric History Previous Treatment History: None Pertinent Medical Hx (Current Medical&Sleep Prob, Allergies): Allergies Allergy/AdvReac Type Severity Reaction Status Date / Time No Known Allergies Allergy Verified 03/08/18 17:18 Tamsulosin [Flomax] 0.4 mg PO DAILY 03/09/14 Ranitidine HCl 150 mg PO BID 04/03/17 Aspirin [Lo-Dose Aspirin EC] 81 mg PO DAILY 07/03/17 Atorvastatin Calcium 10 mg PO DAILY 07/03/17 Ferrous Sulfate [Feosol] 325 mg PO BID 07/03/17 Gabapentin [Neurontin] 100 mg PO TID 07/03/17 Multivitamin [Daily Lis] 1 tab DAILY 07/03/17 amLODIPine [Norvasc] 10 mg PO DAILY 07/03/17 Vitamin B Complex/Vit C/Folic [Nephro-Lis] 1 tab PO 0800 tab 09/18/17 Insulin Detemir [Levemir] 14 unit SC HS #0 unit 02/14/18 Insulin Lispro [humALOG] 8 units SC AC #0 02/14/18 Review of Systems - Review of Systems All systems: reviewed and no additional remarkable complaints except - Psychiatric Psychiatric: Anxiety, Irritability, Mood Swings, Paranoia. absent: Suicidal Ideation Mental Status Examination - Personal Presentation Personal Presentation: Looks stated age - Affect Affect: Constricted - Motor Activity Motor Activity: Psychomotor Agitation - Reliability in Providing Information Reliability in Providing Information: Poor, due to altered mood - Speech Speech: Organized - Mood Mood: Anxious - Formal Thought Process Formal Thought Process: Paranoia - Obsessions/Compulsions Obsessions: No Compulsions: No - Cognitive Functions Orientation: Person, Place Sensorium: Lethargic Attention/Concentration: Easily distracted Estimate of Intelligence: Below average Judgement: Imparied, as evidence by: Poor judgement, Imparied, as evidence by: Lack of insight into illness - Risk Risk: Diminished functioning - Strength & Assets Inventory Strength & Assets Inventory: Family support DSM 5 DX - DSM 5 DSM 5 Diagnosis: Delirium R/o Alzheimer's disease with behavioral disturbance - Recommended/Plan of Treatment Treatment Recommendations and Plan of Treatment: Pt doesn't ave any capacity to make any decision.
[2018-03-11] MEDS: Moxifloxacin IV 400mg/250ml NS 400 MG/250 ML BAG IVPB SCH (14:39)
--- NOTE | 2018-03-11 16:52 | PN ---
DATE: 03/11/2018 ENDO FOLLOWUP NOTE. LOCATION: ICU room #11. SUBJECTIVE: This is a 72-year-old male with recent uncontrolled type 2 insulin-requiring diabetes, now being followed for metabolic management. He is also undergoing IV antibiotic management for a recent acute pneumonitis as noted. His glucose values again have been fluctuating and ranging from 75 to 245 mg/dL overnight as noted. LABORATORY DATA: His chemistries showed a BUN of 36, sodium 130, potassium 4.6, chloride 96, CO2 of 27, glucose 158, and creatinine 1.7. ASSESSMENT AND PLAN: So, at this time, because of the extremes of metabolic fluctuations that the patient typically always have, then we will once again lower basal insulin to be given as 6 units subcu at bedtime daily as ordered. We will continue the Humalog given as 3 units three times a day before meals as ordered. We will obtain serial chemistries and supplement accordingly as needed. We will follow with you. Myrna Sheffield MD
--- NOTE | 2018-03-11 17:12 | CP.PCM.PN ---
Subjective - Date & Time of Evaluation Date of Evaluation: 03/11/18 Time of Evaluation: 07:00 - Subjective Subjective: awake alert OOB to chair still somewhat confused Objective - Vital Signs/Intake and Output Vital Signs (last 24 hours): Temp Pulse Resp BP Pulse Ox 97.8 F 77 16 122/67 98 03/11/18 12:00 03/11/18 12:00 03/11/18 12:00 03/11/18 12:00 03/11/18 12:00 Intake and Output: 03/11/18 03/11/18 06:59 18:59 Intake Total 400 400 Output Total 1100 200 Balance -700 200 - Medications Medications: Current Medications Amlodipine Besylate (Norvasc) 10 mg PO DAILY [facility] Last Admin: 03/11/18 09:57 Dose: 10 mg Aspirin (Ecotrin) 81 mg PO DAILY [facility] Last Admin: 03/11/18 09:53 Dose: 81 mg Ferrous Sulfate (Feosol) 325 mg PO BID [facility] Last Admin: 03/11/18 09:53 Dose: 325 mg Gabapentin (Neurontin) 100 mg PO TID [facility] Last Admin: 03/11/18 14:39 Dose: 100 mg Heparin Sodium (Porcine) (Heparin) 5,000 units SC Q12 [facility] Last Admin: 03/11/18 09:53 Dose: 5,000 units Hydroxyzine HCl (Atarax) 25 mg PO Q6 PRN PRN Reason: Agitation Moxifloxacin HCl (Avelox Iv 400mg/250ml Ns) 400 mg in 250 mls @ 167 mls/hr IVPB Q24H [facility]; Protocol Last Admin: 03/11/18 14:39 Dose: 167 mls/hr Cefepime HCl (Maxipime Iv 2 Gm Premix) 2 gm in 100 mls @ 200 mls/hr IVPB Q12H [facility]; Protocol Stop: 03/13/18 01:44 Last Admin: 03/11/18 14:39 Dose: 200 mls/hr Insulin Aspart (Novolog) 0 unit SC ACHS [facility] Last Admin: 03/11/18 12:42 Dose: 3 units Insulin Aspart (Novolog) 3 unit SC AC [facility] Last Admin: 03/11/18 12:42 Dose: 3 units Insulin Detemir (Levemir) 6 unit SC HS [facility] Lorazepam (Ativan) 1 mg PO Q6 PRN PRN Reason: Agitation Mirtazapine (Remeron) 15 mg PO HS [facility] Morphine Sulfate (Morphine) 2 mg IVP Q3H PRN PRN Reason: Pain, moderate (4-7) Last Admin: 03/11/18 08:22 Dose: 2 mg Multivitamins (Hexavitamin) 1 tab PO DAILY [facility] Last Admin: 03/11/18 09:53 Dose: 1 tab Pantoprazole Sodium (Protonix Inj) 40 mg IVP DAILY [facility] Last Admin: 03/11/18 09:53 Dose: 40 mg Rosuvastatin Calcium (Crestor) 5 mg PO HS [facility] Last Admin: 03/10/18 21:54 Dose: 5 mg Tamsulosin HCl (Flomax) 0.4 mg PO DAILY [facility] Last Admin: 03/11/18 09:53 Dose: 0.4 mg Trazodone HCl (Desyrel) 50 mg PO HS [facility] - Labs Labs: 03/11/18 05:54 03/11/18 05:54 PT 11.7 SECONDS (9.7-12.2) 03/09/18 04:21 INR 1.1 03/09/18 04:21 APTT 28 SECONDS (21-34) 03/09/18 04:21 - Constitutional Appears: Non-toxic, Chronically Ill - Head Exam Head Exam: NORMOCEPHALIC - Eye Exam Eye Exam: PERRL - ENT Exam ENT Exam: Mucous Membranes Dry - Neck Exam Neck Exam: absent: Lymphadenopathy - Respiratory Exam Respiratory Exam: Decreased Breath Sounds - Cardiovascular Exam Cardiovascular Exam: REGULAR RHYTHM - GI/Abdominal Exam GI & Abdominal Exam: Distended, Soft - Rectal Exam Rectal Exam: Deferred - Exam Exam: NORMAL INSPECTION - Extremities Exam Extremities Exam: absent: Pedal Edema - Back Exam Back Exam: absent: CVA tenderness (L), CVA tenderness (R) Assessment and Plan (1) Hypoglycemia Status: Acute (2) Pneumonia Status: Acute (3) Abdominal pain Status: Acute (4) Acidosis Status: Acute (5) Acute on chronic renal insufficiency Status: Acute - Assessment and Plan (Free Text) Assessment: iv rx reordered cont rx min 7 days followup CXR
[2018-03-11] MEDS: Insulin Detemir 100 units/ml Vial (Levemir) SC SCH (22:37)
[2018-03-12] MEDS: Cefpodoxime (Vantin) 200 mg Tab PO SCH ×2 (01:21→14:00)
[2018-03-12 06:15] LABS: HEMOGLOBIN 9.1 g/dL (12.0-18.0); MEAN CELL VOLUME 83.1 fL (80.0-94.0); MEAN CORPUSCULAR HEMOGLOBIN 26.5 pg (27.0-31.0); MEAN CORPUSCULAR HGB CONC 31.9 g/dL (33.0-37.0); MEAN PLATELET VOLUME 8.3 fL (7.2-11.7); RBC 3.44 Mil/uL (4.40-5.90); WHITE BLOOD COUNT 6.7 K/uL (4.8-10.8)
--- NOTE | 2018-03-12 06:30 | PN ---
DATE: 03/11/2018 SUBJECTIVE: I saw Ferny in the intensive care unit. He is resting comfortably in bed. He has actually had a good night. He has no chest pain or shortness of breath. AMA. PHYSICAL EXAMINATION: VITAL SIGNS: Temperature 98, respiratory rate, 100% O2 sat on room air, 127/70 blood pressure. HEENT: Head is atraumatic and normocephalic. GENERAL: He is alert and comfortable, and calm. HEART: Regular rate. LUNGS: Decreased breath sounds, but clear. ABDOMEN: Soft. Nontender. Positive bowel sounds. EXTREMITIES: No edema. MEDICATIONS: He is currently on Avelox IV, Crestor, Ecotrin, Feosol, Flomax, heparin, vitamins, Levemir, Maxipime, morphine, Neurontin, Norvasc, NovoLog, and Protonix. Hepatitis B antibody reactive. He has 129 sodium, potassium 5.4. We will give him some Kayexalate. BUN 34, creatinine 1.6, which is getting better. Last blood sugar was 245, we will increase the insulin. Calcium is . AST is 40, ALT is 24, alk phos 153, total protein is 5.9. TSH 1.34, normal. White count 6.3, hemoglobin 9.6, hematocrit 32.3, platelet count He is in the intensive care unit for longstanding right-sided pneumonia, and now is hepatitis B reactive. He is also diabetic, noncompliant. We will check his labs, BUN, creatinine, and antibiotics. Adjust his insulin. Await Gastroenterology and Psychiatry. Zohaib [facility] DO MTDD
[2018-03-12 06:52] LABS: ALB/GLOB RATIO 0.9 (1.0-2.1); ALBUMIN 2.9 g/dL (3.5-5.0); CALCIUM 8.7 mg/dl (8.6-10.4)
[2018-03-12] MEDS ORDERED: Glucagon Recombinant 1 mg Inj IM PRN (07:01)
[2018-03-12] MEDS ORDERED: Dextrose 50% SYRINGE Inj (50 ml) IV PRN (07:01)
[2018-03-12] MEDS: (Novolog) Insulin Aspart, Recombinant 100 u/ml 10 ml vial SC SCH ×6 (07:30→16:51)
--- NOTE | 2018-03-12 07:47 | RAD ---
Date of service: 03/11/2018 HISTORY: pneumonia COMPARISON: Portable chest 03/08/2018. FINDINGS: LUNGS: Diminished airspace disease seen at the bilateral bases as well as medial right upper lobe. PLEURA: No significant pleural effusion identified, no pneumothorax apparent. CARDIOVASCULAR: No atherosclerotic calcification present Stable cardiac silhouette. No pulmonary vascular congestion. OSSEOUS STRUCTURES: No significant abnormalities. VISUALIZED UPPER ABDOMEN: Normal. OTHER FINDINGS: None. IMPRESSION: Diminishing bilateral basilar and medial right upper lobe airspace disease.
[2018-03-12] MEDS: Multiple Vitamins Tab PO SCH (09:22)
[2018-03-12 10:04] LABS: SQUAMOUS EPITHIAL < 1 /hpf (0-5); URINE BILIRUBIN NEGATIVE (NEGATIVE); URINE BLOOD 1+ (NEGATIVE); URINE CLARITY Clear (Clear); URINE COLOR Straw (YELLOW); URINE GLUCOSE (UA) 2+ mg/dL (Normal); URINE LEUKOCYTE ESTERASE NEG Leu/uL (Negative); URINE PROTEIN 1+ mg/dL (NEGATIVE); URINE UROBILINOGEN NORMAL mg/dL (0.2-1.0)
[2018-03-12] MEDS: oxyCODONE 5 mg Immediate Release Tab PO PRN (10:41)
[2018-03-12 10:58] LABS: INR 1.1; PROTHROMBIN TIME 11.5 SECONDS (9.7-12.2)
[2018-03-12] MEDS: Moxifloxacin IV 400mg/250ml NS 400 MG/250 ML BAG IVPB SCH (14:40)
--- NOTE | 2018-03-12 16:00 | CP.PCM.PN ---
<Vijaya Waite - Last Filed: 03/12/18 17:04> Subjective - Date & Time of Evaluation Date of Evaluation: 03/12/18 Time of Evaluation: 07:35 - Subjective Subjective: Patient examined at bedside. No acute events overnight. During morning, patient's sugar dropped to 25 on CMP and finger stick read 43. Patient reports he was asymptomatic preceding event. He was then given juice with sugar and get and had several episodes of emesis. Patient's sugars finally normalized, however then climbed to >500. Pt denies headache, chest pain, dizziness, abd pain, nausea, diarrhea. Pt keeps threatening to sign out AMA. Objective - Vital Signs/Intake and Output Vital Signs (last 24 hours): Temp Pulse Resp BP Pulse Ox 98.1 F 90 20 109/83 98 03/12/18 12:00 03/12/18 12:00 03/12/18 12:00 03/12/18 08:00 03/12/18 12:00 Intake and Output: 03/12/18 03/12/18 06:59 18:59 Intake Total 240 250 Output Total 500 500 Balance -260 -250 - Medications Medications: Current Medications Amlodipine Besylate (Norvasc) 10 mg PO DAILY [facility] Last Admin: 03/12/18 09:22 Dose: 10 mg Aspirin (Ecotrin) 81 mg PO DAILY [facility] Last Admin: 03/12/18 09:22 Dose: 81 mg Cefpodoxime Proxetil (Vantin) 200 mg PO Q12H [facility]; Protocol Last Admin: 03/12/18 14:00 Dose: 200 mg Dextrose (Dextrose 50% Inj) 0 ml IV STAT PRN; Protocol PRN Reason: Hypoglycemia Protocol Dextrose (Glutose 15) 0 gm PO ONCE PRN; Protocol PRN Reason: Hypoglycemia Protocol Last Admin: 03/12/18 07:26 Dose: 15 gm Ferrous Sulfate (Feosol) 325 mg PO BID [facility] Last Admin: 03/12/18 09:22 Dose: 325 mg Gabapentin (Neurontin) 100 mg PO TID [facility] Last Admin: 03/12/18 14:52 Dose: 100 mg Glucagon (Glucagen Diagnostic Kit) 0 mg IM STAT PRN; Protocol PRN Reason: Hypoglycemia Protocol Heparin Sodium (Porcine) (Heparin) 5,000 units SC Q12 [facility] Last Admin: 03/12/18 09:22 Dose: 5,000 units Hydroxyzine HCl (Atarax) 25 mg PO Q6 PRN PRN Reason: Agitation Last Admin: 03/11/18 18:20 Dose: 25 mg Moxifloxacin HCl (Avelox Iv 400mg/250ml Ns) 400 mg in 250 mls @ 167 mls/hr IVPB Q24H [facility]; Protocol Last Admin: 03/11/18 14:39 Dose: 167 mls/hr Dextrose (Dextrose 5% In Water 1000 Ml) 1,000 mls @ 0 mls/hr IV .Q0M PRN; Protocol PRN Reason: Hypoglycemia Protocol Insulin Aspart (Novolog) 0 unit SC ACHS [facility] Last Admin: 03/12/18 11:52 Dose: 5 units Insulin Aspart (Novolog) 3 unit SC AC [facility] Last Admin: 03/12/18 11:53 Dose: 3 units Insulin Detemir (Levemir) 6 unit SC HS [facility] Last Admin: 03/11/18 22:37 Dose: 6 u Lorazepam (Ativan) 1 mg PO Q6 PRN PRN Reason: Agitation Last Admin: 03/12/18 14:52 Dose: 1 mg Mirtazapine (Remeron) 15 mg PO HS [facility] Last Admin: 03/11/18 22:37 Dose: 15 mg Multivitamins (Hexavitamin) 1 tab PO DAILY [facility] Last Admin: 03/12/18 09:22 Dose: 1 tab Oxycodone HCl (Oxycodone Immediate Release Tab) 5 mg PO Q8H PRN PRN Reason: Pain, moderate (4-7) Last Admin: 03/12/18 10:41 Dose: 5 mg Pantoprazole Sodium (Protonix Ec Tab) 40 mg PO DAILY [facility] Rosuvastatin Calcium (Crestor) 5 mg PO HS [facility] Last Admin: 03/11/18 22:37 Dose: 5 mg Tamsulosin HCl (Flomax) 0.4 mg PO DAILY [facility] Last Admin: 03/12/18 09:22 Dose: 0.4 mg Trazodone HCl (Desyrel) 50 mg PO HS [facility] Last Admin: 03/11/18 23:04 Dose: 50 mg - Labs Labs: 03/12/18 06:11 03/12/18 06:11 PT 11.5 SECONDS (9.7-12.2) 03/12/18 10:38 INR 1.1 03/12/18 10:38 APTT 35 SECONDS (21-34) H 03/12/18 10:38 - Constitutional Appears: No Acute Distress - Head Exam Head Exam: ATRAUMATIC, NORMAL INSPECTION, NORMOCEPHALIC - Eye Exam Eye Exam: EOMI, Normal appearance - ENT Exam ENT Exam: Mucous Membranes Moist, Normal Exam - Neck Exam Neck Exam: Normal Inspection - Respiratory Exam Respiratory Exam: Clear to Ausculation Bilateral, NORMAL BREATHING PATTERN - Cardiovascular Exam Cardiovascular Exam: Tachycardia, REGULAR RHYTHM, +S1, +S2 - GI/Abdominal Exam GI & Abdominal Exam: Soft, Normal Bowel Sounds. absent: Distended, Tenderness - Extremities Exam Extremities Exam: Normal Inspection. absent: Calf Tenderness, Pedal Edema - Neurological Exam Neurological Exam: Alert, Awake - Psychiatric Exam Psychiatric exam: Anxious - Skin Skin Exam: Dry, Intact, Normal Color, Warm Assessment and Plan - Assessment and Plan (Free Text) Assessment: Pt is a 72 year old male w/ PMHx of uncontrolled DM2, admitted in DKA and PNA DM2, uncontrolled, labile -hgb a1c: 10.0 -recs per Dr. Sheffield are to give 3U Humalog ACHS and 6U Levemir HS -Endo, Dr. Sheffield PNA -CXR: multifocal PNA on admission(03/08) -CXR: diminished airspace disease -blood/nares/urine cxs all negative to date -WBC 6.7, afebrile, tachy @ 90-110 overnight -Vantin 200mg q12 -Dr. García, ID Anemia -hgb 9.1, down from 12.8 on admission -UA negative for hematuria -f/u fecal occult -type and screen HTN -norvasc 10mg po Psych -deemed competent -Dr. Salguero, Psych Hep C+ -f/u viral load <Daniel Vazquez H - Last Filed: 03/12/18 17:21> Objective - Vital Signs/Intake and Output Vital Signs (last 24 hours): Temp Pulse Resp BP Pulse Ox 98.1 F 90 20 109/83 98 03/12/18 12:00 03/12/18 12:00 03/12/18 12:00 03/12/18 08:00 03/12/18 12:00 Intake and Output: 03/12/18 03/12/18 06:59 18:59 Intake Total 240 250 Output Total 500 500 Balance -260 -250 - Medications Medications: Current Medications Amlodipine Besylate (Norvasc) 10 mg PO DAILY [facility] Last Admin: 03/12/18 09:22 Dose: 10 mg Aspirin (Ecotrin) 81 mg PO DAILY [facility] Last Admin: 03/12/18 09:22 Dose: 81 mg Cefpodoxime Proxetil (Vantin) 200 mg PO Q12H [facility]; Protocol Last Admin: 03/12/18 14:00 Dose: 200 mg Dextrose (Dextrose 50% Inj) 0 ml IV STAT PRN; Protocol PRN Reason: Hypoglycemia Protocol Dextrose (Glutose 15) 0 gm PO ONCE PRN; Protocol PRN Reason: Hypoglycemia Protocol Last Admin: 03/12/18 07:26 Dose: 15 gm Ferrous Sulfate (Feosol) 325 mg PO BID [facility] Last Admin: 03/12/18 17:00 Dose: 325 mg Gabapentin (Neurontin) 100 mg PO TID [facility] Last Admin: 03/12/18 17:00 Dose: 100 mg Glucagon (Glucagen Diagnostic Kit) 0 mg IM STAT PRN; Protocol PRN Reason: Hypoglycemia Protocol Heparin Sodium (Porcine) (Heparin) 5,000 units SC Q12 [facility] Last Admin: 03/12/18 09:22 Dose: 5,000 units Hydroxyzine HCl (Atarax) 25 mg PO Q6 PRN PRN Reason: Agitation Last Admin: 03/11/18 18:20 Dose: 25 mg Moxifloxacin HCl (Avelox Iv 400mg/250ml Ns) 400 mg in 250 mls @ 167 mls/hr IVPB Q24H [facility]; Protocol Last Admin: 03/11/18 14:39 Dose: 167 mls/hr Dextrose (Dextrose 5% In Water 1000 Ml) 1,000 mls @ 0 mls/hr IV .Q0M PRN; Protocol PRN Reason: Hypoglycemia Protocol Insulin Aspart (Novolog) 0 unit SC ACHS [facility] Last Admin: 03/12/18 16:30 Dose: Not Given Insulin Aspart (Novolog) 3 unit SC AC [facility] Last Admin: 03/12/18 16:51 Dose: 3 units Insulin Detemir (Levemir) 6 unit SC HS [facility] Last Admin: 03/11/18 22:37 Dose: 6 u Lorazepam (Ativan) 1 mg PO Q6 PRN PRN Reason: Agitation Last Admin: 03/12/18 14:52 Dose: 1 mg Mirtazapine (Remeron) 15 mg PO HS [facility] Last Admin: 03/11/18 22:37 Dose: 15 mg Multivitamins (Hexavitamin) 1 tab PO DAILY [facility] Last Admin: 03/12/18 09:22 Dose: 1 tab Oxycodone HCl (Oxycodone Immediate Release Tab) 5 mg PO Q8H PRN PRN Reason: Pain, moderate (4-7) Last Admin: 03/12/18 10:41 Dose: 5 mg Pantoprazole Sodium (Protonix Ec Tab) 40 mg PO DAILY [facility] Rosuvastatin Calcium (Crestor) 5 mg PO HS [facility] Last Admin: 03/11/18 22:37 Dose: 5 mg Tamsulosin HCl (Flomax) 0.4 mg PO DAILY [facility] Last Admin: 03/12/18 09:22 Dose: 0.4 mg Trazodone HCl (Desyrel) 50 mg PO HS [facility] Last Admin: 03/11/18 23:04 Dose: 50 mg - Labs Labs: 03/12/18 06:11 03/12/18 06:11 PT 11.5 SECONDS (9.7-12.2) 03/12/18 10:38 INR 1.1 03/12/18 10:38 APTT 35 SECONDS (21-34) H 03/12/18 10:38 Attending/Attestation - Attestation I have personally seen and examined this patient.: Yes I have fully participated in the care of the patient.: Yes I have reviewed all pertinent clinical information, including history, physical exam and plan: Yes Notes (Text): 03/12/18 17:17 Medical attending: Today we are covering the patient's primary physician. I saw and examined the patient with the medical records library professor The patient was not entirely interested in discussing his situation with us and was wanting to sign out AMA however later in the day I understand he decided to stay. Very concerning this morning were the extremely low blood sugars. After discussing with the staff and nursing we would rather he have high elevated numbers for the time being as oppose to such low numbers we saw. Review of previous hospitalizations shows many admissions for DKA, and recently was hospitalized with pneumonia and then signed out AMA. He currently is on abx at this time. He may try to sign out again later today. However when we met and spoke with the patient we explained to him that such low blood sugars seen earlier in the morning were dangerous. Daniel Vazquez
--- NOTE | 2018-03-12 17:16 | CP.PCM.PN ---
Subjective - Date & Time of Evaluation Date of Evaluation: 03/12/18 Time of Evaluation: 09:00 - Subjective Subjective: no fever events noted Objective - Vital Signs/Intake and Output Vital Signs (last 24 hours): Temp Pulse Resp BP Pulse Ox 98.1 F 90 20 109/83 98 03/12/18 12:00 03/12/18 12:00 03/12/18 12:00 03/12/18 08:00 03/12/18 12:00 Intake and Output: 03/12/18 03/12/18 06:59 18:59 Intake Total 240 250 Output Total 500 500 Balance -260 -250 - Medications Medications: Current Medications Amlodipine Besylate (Norvasc) 10 mg PO DAILY [facility] Last Admin: 03/12/18 09:22 Dose: 10 mg Aspirin (Ecotrin) 81 mg PO DAILY [facility] Last Admin: 03/12/18 09:22 Dose: 81 mg Cefpodoxime Proxetil (Vantin) 200 mg PO Q12H [facility]; Protocol Last Admin: 03/12/18 14:00 Dose: 200 mg Dextrose (Dextrose 50% Inj) 0 ml IV STAT PRN; Protocol PRN Reason: Hypoglycemia Protocol Dextrose (Glutose 15) 0 gm PO ONCE PRN; Protocol PRN Reason: Hypoglycemia Protocol Last Admin: 03/12/18 07:26 Dose: 15 gm Ferrous Sulfate (Feosol) 325 mg PO BID [facility] Last Admin: 03/12/18 17:00 Dose: 325 mg Gabapentin (Neurontin) 100 mg PO TID [facility] Last Admin: 03/12/18 17:00 Dose: 100 mg Glucagon (Glucagen Diagnostic Kit) 0 mg IM STAT PRN; Protocol PRN Reason: Hypoglycemia Protocol Heparin Sodium (Porcine) (Heparin) 5,000 units SC Q12 [facility] Last Admin: 03/12/18 09:22 Dose: 5,000 units Hydroxyzine HCl (Atarax) 25 mg PO Q6 PRN PRN Reason: Agitation Last Admin: 03/11/18 18:20 Dose: 25 mg Moxifloxacin HCl (Avelox Iv 400mg/250ml Ns) 400 mg in 250 mls @ 167 mls/hr IVPB Q24H [facility]; Protocol Last Admin: 03/11/18 14:39 Dose: 167 mls/hr Dextrose (Dextrose 5% In Water 1000 Ml) 1,000 mls @ 0 mls/hr IV .Q0M PRN; Protocol PRN Reason: Hypoglycemia Protocol Insulin Aspart (Novolog) 0 unit SC ACHS [facility] Last Admin: 03/12/18 16:30 Dose: Not Given Insulin Aspart (Novolog) 3 unit SC AC [facility] Last Admin: 03/12/18 16:51 Dose: 3 units Insulin Detemir (Levemir) 6 unit SC HS [facility] Last Admin: 03/11/18 22:37 Dose: 6 u Lorazepam (Ativan) 1 mg PO Q6 PRN PRN Reason: Agitation Last Admin: 03/12/18 14:52 Dose: 1 mg Mirtazapine (Remeron) 15 mg PO HS [facility] Last Admin: 03/11/18 22:37 Dose: 15 mg Multivitamins (Hexavitamin) 1 tab PO DAILY [facility] Last Admin: 03/12/18 09:22 Dose: 1 tab Oxycodone HCl (Oxycodone Immediate Release Tab) 5 mg PO Q8H PRN PRN Reason: Pain, moderate (4-7) Last Admin: 03/12/18 10:41 Dose: 5 mg Pantoprazole Sodium (Protonix Ec Tab) 40 mg PO DAILY [facility] Rosuvastatin Calcium (Crestor) 5 mg PO HS [facility] Last Admin: 03/11/18 22:37 Dose: 5 mg Tamsulosin HCl (Flomax) 0.4 mg PO DAILY [facility] Last Admin: 03/12/18 09:22 Dose: 0.4 mg Trazodone HCl (Desyrel) 50 mg PO HS [facility] Last Admin: 03/11/18 23:04 Dose: 50 mg - Labs Labs: 03/12/18 06:11 03/12/18 06:11 PT 11.5 SECONDS (9.7-12.2) 03/12/18 10:38 INR 1.1 03/12/18 10:38 APTT 35 SECONDS (21-34) H 03/12/18 10:38 - Constitutional Appears: Non-toxic, Cachectic, Chronically Ill - Head Exam Head Exam: NORMOCEPHALIC - Eye Exam Eye Exam: PERRL - ENT Exam ENT Exam: Mucous Membranes Dry - Neck Exam Neck Exam: absent: Lymphadenopathy - Respiratory Exam Respiratory Exam: Decreased Breath Sounds - Cardiovascular Exam Cardiovascular Exam: REGULAR RHYTHM - GI/Abdominal Exam GI & Abdominal Exam: Distended Assessment and Plan (1) Hypoglycemia Status: Acute (2) Pneumonia Status: Acute (3) Abdominal pain Status: Acute (4) Acidosis Status: Acute (5) Acute on chronic renal insufficiency Status: Acute - Assessment and Plan (Free Text) Assessment: follow up CXR consider endoctrine eval, cortisol level r/o adrenal insuff
--- NOTE | 2018-03-12 19:16 | PN ---
DATE: 03/12/2018 LOCATION: ICU room #11. SUBJECTIVE: This is a 72-year-old male with known history of uncontrolled type 2 insulin-requiring diabetes with extremes of glycemic fluctuations ranging from symptomatic hypoglycemia to marked hyperglycemic accelerations as noted thereof. His glycemic levels are fluctuating, but improved and his oral intake also remains quite variable as per the nursing staff. LABORATORY DATA: His chemistries showed the BUN of 36, sodium 130, potassium 4.6, chloride 96, CO2 of 27, glucose 158 and creatinine 1.7. ASSESSMENT AND PLAN: So, at this time, we will continue the same basal and bolus insulin regimen as modified last night with Levemir given as 6 units subcutaneously at bedtime daily to start tonight. We will also continue the NovoLog given as 3 units t.i.d before meals to allow for full dose equilibration as his oral intake is quite variable at this time. We will obtain serial chemistries and supplement accordingly as needed. We will follow. Myrna Sheffield MD
[2018-03-12] MEDS: Insulin Detemir 100 units/ml Vial (Levemir) SC SCH (21:18)
[2018-03-13] MEDS: oxyCODONE 5 mg Immediate Release Tab PO PRN ×2 (00:48→10:08)
[2018-03-13] MEDS: Cefpodoxime (Vantin) 200 mg Tab PO SCH ×4 (02:35→21:51)
[2018-03-13] MEDS: (Novolog) Insulin Aspart, Recombinant 100 u/ml 10 ml vial SC SCH ×8 (08:31→22:06)
--- NOTE | 2018-03-13 09:25 | CP.PCM.PN ---
<Vijaya Waite - Last Filed: 03/13/18 13:14> Subjective - Date & Time of Evaluation Date of Evaluation: 03/13/18 Time of Evaluation: 07:00 - Subjective Subjective: Patient examined at bedside with aid in room. Per reports, patient was altered overnight, wandering hallways and appeared confused; conflicting report of pt drinking his own urine. Pt reports he just had difficulty sleeping and felt nauseous, which is normal for him, even at home. Pt's symptoms resolved following haldol, however pt was placed on 1:1, and did not sleep at all. Pt reports he feels well but has some urinary complaints, stating "I feel like my prostate is acting up". When questioned further he reports he feels as though he has to urinate, but is both voluntarily and involuntarily withholding. Denies chest pain, SOB, nausea, vomiting. Pt reports decreased appetite. Objective - Vital Signs/Intake and Output Vital Signs (last 24 hours): Temp Pulse Resp BP Pulse Ox 97.4 F L 110 H 20 102/70 99 03/13/18 07:00 03/13/18 07:00 03/13/18 07:00 03/13/18 07:00 03/13/18 07:00 - Medications Medications: Current Medications Amlodipine Besylate (Norvasc) 10 mg PO DAILY [facility] Last Admin: 03/12/18 09:22 Dose: 10 mg Aspirin (Ecotrin) 81 mg PO DAILY [facility] Last Admin: 03/12/18 09:22 Dose: 81 mg Cefpodoxime Proxetil (Vantin) 200 mg PO Q12 [facility]; Protocol Dextrose (Dextrose 50% Inj) 0 ml IV STAT PRN; Protocol PRN Reason: Hypoglycemia Protocol Dextrose (Glutose 15) 0 gm PO ONCE PRN; Protocol PRN Reason: Hypoglycemia Protocol Last Admin: 03/12/18 07:26 Dose: 15 gm Ferrous Sulfate (Feosol) 325 mg PO BID [facility] Last Admin: 03/12/18 17:00 Dose: 325 mg Gabapentin (Neurontin) 100 mg PO TID [facility] Last Admin: 03/12/18 17:00 Dose: 100 mg Glucagon (Glucagen Diagnostic Kit) 0 mg IM STAT PRN; Protocol PRN Reason: Hypoglycemia Protocol Heparin Sodium (Porcine) (Heparin) 5,000 units SC Q12 [facility] Last Admin: 03/12/18 21:17 Dose: 5,000 units Hydroxyzine HCl (Atarax) 25 mg PO Q6 PRN PRN Reason: Agitation Last Admin: 03/11/18 18:20 Dose: 25 mg Moxifloxacin HCl (Avelox Iv 400mg/250ml Ns) 400 mg in 250 mls @ 167 mls/hr IVPB Q24H [facility]; Protocol Last Admin: 03/12/18 14:40 Dose: 167 mls/hr Dextrose (Dextrose 5% In Water 1000 Ml) 1,000 mls @ 0 mls/hr IV .Q0M PRN; Protocol PRN Reason: Hypoglycemia Protocol Insulin Aspart (Novolog) 0 unit SC ACHS [facility] Last Admin: 03/12/18 16:30 Dose: Not Given Insulin Aspart (Novolog) 3 unit SC AC [facility] Last Admin: 03/13/18 08:31 Dose: 3 units Insulin Detemir (Levemir) 6 unit SC HS [facility] Last Admin: 03/12/18 21:18 Dose: 6 u Lorazepam (Ativan) 1 mg PO Q6 PRN PRN Reason: Agitation Last Admin: 03/13/18 00:02 Dose: 1 mg Mirtazapine (Remeron) 15 mg PO HS [facility] Last Admin: 03/12/18 21:17 Dose: 15 mg Multivitamins (Hexavitamin) 1 tab PO DAILY [facility] Last Admin: 03/12/18 09:22 Dose: 1 tab Oxycodone HCl (Oxycodone Immediate Release Tab) 5 mg PO Q8H PRN PRN Reason: Pain, moderate (4-7) Last Admin: 03/13/18 00:48 Dose: 5 mg Pantoprazole Sodium (Protonix Ec Tab) 40 mg PO DAILY [facility] Rosuvastatin Calcium (Crestor) 5 mg PO HS [facility] Last Admin: 03/12/18 21:17 Dose: 5 mg Tamsulosin HCl (Flomax) 0.4 mg PO DAILY [facility] Last Admin: 03/12/18 09:22 Dose: 0.4 mg Trazodone HCl (Desyrel) 50 mg PO HS [facility] Last Admin: 03/12/18 21:18 Dose: 50 mg - Labs Labs: 03/12/18 06:11 03/12/18 06:11 PT 11.5 SECONDS (9.7-12.2) 03/12/18 10:38 INR 1.1 03/12/18 10:38 APTT 35 SECONDS (21-34) H 03/12/18 10:38 - Constitutional Appears: No Acute Distress - Head Exam Head Exam: ATRAUMATIC, NORMAL INSPECTION, NORMOCEPHALIC - Eye Exam Eye Exam: EOMI, Normal appearance - ENT Exam ENT Exam: Mucous Membranes Dry, Normal Exam - Neck Exam Neck Exam: Normal Inspection - Respiratory Exam Respiratory Exam: Clear to Ausculation Bilateral, NORMAL BREATHING PATTERN - Cardiovascular Exam Cardiovascular Exam: Tachycardia, REGULAR RHYTHM, +S1, +S2 - GI/Abdominal Exam GI & Abdominal Exam: Soft, Normal Bowel Sounds. absent: Tenderness - Neurological Exam Neurological Exam: Alert, Awake - Psychiatric Exam Psychiatric exam: Normal Affect, Normal Mood - Skin Skin Exam: Dry, Intact, Normal Color, Warm Assessment and Plan - Assessment and Plan (Free Text) Assessment: Assessment: Pt is a 72 year old male w/ PMHx of uncontrolled DM2, admitted in DKA and PNA Pt refusing labs and meds this morning DM2, uncontrolled, labile -hgb a1c: 10.0 -stable overnight, 171-390 -recs per Dr. Sheffield are to give 3U Humalog ACHS and 6U Levemir HS -accuchecks q4h -Dr. Yohannes Saunders PNA -CXR: multifocal PNA on admission(03/08) -CXR: diminished airspace disease -blood/nares/urine cxs all negative to date -WBC 6.7, afebrile, tachy @ 90-110 overnight -Vantin 200mg q12 -Dr. García, ID Anemia -hgb 9.1, down from 12.8 on admission -UA negative for hematuria -f/u fecal occult -type and screen HTN -norvasc 10mg po Psych -deemed w/out capacity by Dr. Salguero after re-evaluation(03/13) based on last night's events and continued alteration of mental status -Dr. Salguero, Psych Hep C+ -f/u viral load <Vazquez,Peter H - Last Filed: 03/13/18 14:28> Objective - Vital Signs/Intake and Output Vital Signs (last 24 hours): Temp Pulse Resp BP Pulse Ox 97.4 F L 110 H 20 102/70 99 03/13/18 07:00 03/13/18 07:00 03/13/18 07:00 03/13/18 07:00 03/13/18 07:00 - Medications Medications: Current Medications Amlodipine Besylate (Norvasc) 10 mg PO DAILY [facility] Last Admin: 03/13/18 10:06 Dose: 10 mg Aspirin (Ecotrin) 81 mg PO DAILY [facility] Last Admin: 03/13/18 09:37 Dose: Not Given Cefpodoxime Proxetil (Vantin) 200 mg PO Q12 [facility]; Protocol Last Admin: 03/13/18 10:07 Dose: 200 mg Dextrose (Dextrose 50% Inj) 0 ml IV STAT PRN; Protocol PRN Reason: Hypoglycemia Protocol Dextrose (Glutose 15) 0 gm PO ONCE PRN; Protocol PRN Reason: Hypoglycemia Protocol Last Admin: 03/12/18 07:26 Dose: 15 gm Ferrous Sulfate (Feosol) 325 mg PO BID [facility] Last Admin: 03/13/18 10:06 Dose: 325 mg Gabapentin (Neurontin) 100 mg PO TID [facility] Last Admin: 03/13/18 10:07 Dose: 100 mg Glucagon (Glucagen Diagnostic Kit) 0 mg IM STAT PRN; Protocol PRN Reason: Hypoglycemia Protocol Haloperidol (Haldol) 1 mg PO BID [facility] Haloperidol (Haldol) 2 mg PO Q6 PRN PRN Reason: Agitation Heparin Sodium (Porcine) (Heparin) 5,000 units SC Q12 [facility] Last Admin: 03/13/18 09:37 Dose: Not Given Hydroxyzine HCl (Atarax) 25 mg PO Q6 PRN PRN Reason: Agitation Last Admin: 03/11/18 18:20 Dose: 25 mg Moxifloxacin HCl (Avelox Iv 400mg/250ml Ns) 400 mg in 250 mls @ 167 mls/hr IVPB Q24H [facility]; Protocol Last Admin: 03/12/18 14:40 Dose: 167 mls/hr Dextrose (Dextrose 5% In Water 1000 Ml) 1,000 mls @ 0 mls/hr IV .Q0M PRN; Protocol PRN Reason: Hypoglycemia Protocol Insulin Aspart (Novolog) 0 unit SC ACHS [facility] Last Admin: 03/13/18 09:38 Dose: Not Given Insulin Aspart (Novolog) 4 unit SC AC [facility] Insulin Detemir (Levemir) 8 unit SC HS [facility] Mirtazapine (Remeron) 15 mg PO HS [facility] Last Admin: 03/12/18 21:17 Dose: 15 mg Multivitamins (Hexavitamin) 1 tab PO DAILY [facility] Last Admin: 03/13/18 10:07 Dose: 1 tab Oxycodone HCl (Oxycodone Immediate Release Tab) 5 mg PO Q8H PRN PRN Reason: Pain, moderate (4-7) Last Admin: 03/13/18 10:08 Dose: 5 mg Pantoprazole Sodium (Protonix Ec Tab) 40 mg PO DAILY [facility] Last Admin: 03/13/18 10:06 Dose: 40 mg Rosuvastatin Calcium (Crestor) 5 mg PO HS [facility] Last Admin: 03/12/18 21:17 Dose: 5 mg Tamsulosin HCl (Flomax) 0.4 mg PO DAILY [facility] Last Admin: 03/13/18 10:07 Dose: 0.4 mg Trazodone HCl (Desyrel) 50 mg PO [facility] Last Admin: 03/12/18 21:18 Dose: 50 mg - Labs Labs: 03/12/18 06:11 03/12/18 06:11 PT 11.5 SECONDS (9.7-12.2) 03/12/18 10:38 INR 1.1 03/12/18 10:38 APTT 35 SECONDS (21-34) H 03/12/18 10:38 Attending/Attestation - Attestation I have personally seen and examined this patient.: Yes I have fully participated in the care of the patient.: Yes I have reviewed all pertinent clinical information, including history, physical exam and plan: Yes Notes (Text): 03/13/18 14:24 Medical attending: Patient was seen and examined by me, agrees the above note by the medical observer. The patient was actively walking with a rolling walker in the hallway. I was informed by the medical staff as well as nursing that is very agitated last night would not sleep whatsoever. He was hard to redirect last night was up and down the hallways. When I came and spoke with him he appeared to be pleasant demented. He knew that he was at [facility], he got the date wrong. He is currently on one-to-one observation. He initially refused all lab work this morning and he also refused his me dication when we spoke to him about it he then slowly agree to have lab work as well as take his medication. He does not seem to remember the events from the previous night. Furthermore he no longer want to leave AMA. He has not had any episodes of hypoglycemia overnight and into this morning Thank you very much Daniel Vazquez
[2018-03-13] MEDS: Multiple Vitamins Tab PO SCH ×2 (09:37→10:07)
[2018-03-13] MEDS: Pantoprazole 40 mg EC Tab PO SCH ×2 (09:38→10:06)
--- NOTE | 2018-03-13 11:37 | PCM.PYCHPN ---
Psychiatric Progress Note - Psychiatric Progress Note Patient seen today, length of contact: 17 min Patient Chief Complaint: "I am alright" Medication Change: Yes Medical Record Reviewed: Yes Mental Status Examination - Cognitive Function Orientation: Person Memory: Impaired Attention: Poor Concentration: Poor Association: Loose Fund of Knowledge: Poor - Mood Mood: Anxious - Affect Affect: Constricted - Speech Speech: Appropriate - Formal Thought Process Formal Thought Process: Delusions, Paranoia, Loosening of associations - Suicidal Ideation Suicidal Ideation: No - Homicidal Ideation Homicidal Ideation: No Goal/Treatment Plan - Goal/Treatment Plan Need for Continued Stay: Discharge may exacerbated symptoms, Severe functional impairment Progress Toward Problem(s) and Goals/Treatment Plan: Delirium R/o Alzheimer's disease with behavioral disturbance Pt doesnt has any capacity to make any decision.
[2018-03-13] MEDS: Moxifloxacin IV 400mg/250ml NS 400 MG/250 ML BAG IVPB SCH (14:35)
--- NOTE | 2018-03-13 17:24 | CP.PCM.PN ---
Subjective - Date & Time of Evaluation Date of Evaluation: 03/13/18 Time of Evaluation: 09:00 - Subjective Subjective: confused at times in NAD rx for pneumonia in progress Objective - Vital Signs/Intake and Output Vital Signs (last 24 hours): Temp Pulse Resp BP Pulse Ox 97.4 F L 110 H 20 102/70 99 03/13/18 07:00 03/13/18 07:00 03/13/18 07:00 03/13/18 07:00 03/13/18 07:00 - Medications Medications: Current Medications Amlodipine Besylate (Norvasc) 10 mg PO DAILY [facility] Last Admin: 03/13/18 10:06 Dose: 10 mg Aspirin (Ecotrin) 81 mg PO DAILY [facility] Last Admin: 03/13/18 09:37 Dose: Not Given Cefpodoxime Proxetil (Vantin) 200 mg PO Q12 [facility]; Protocol Last Admin: 03/13/18 10:07 Dose: 200 mg Dextrose (Dextrose 50% Inj) 0 ml IV STAT PRN; Protocol PRN Reason: Hypoglycemia Protocol Dextrose (Glutose 15) 0 gm PO ONCE PRN; Protocol PRN Reason: Hypoglycemia Protocol Last Admin: 03/12/18 07:26 Dose: 15 gm Ferrous Sulfate (Feosol) 325 mg PO BID [facility] Last Admin: 03/13/18 10:06 Dose: 325 mg Gabapentin (Neurontin) 100 mg PO TID [facility] Last Admin: 03/13/18 14:36 Dose: 100 mg Glucagon (Glucagen Diagnostic Kit) 0 mg IM STAT PRN; Protocol PRN Reason: Hypoglycemia Protocol Haloperidol (Haldol) 1 mg PO BID [facility] Haloperidol (Haldol) 2 mg PO Q6 PRN PRN Reason: Agitation Last Admin: 03/13/18 15:25 Dose: 2 mg Heparin Sodium (Porcine) (Heparin) 5,000 units SC Q12 [facility] Last Admin: 03/13/18 09:37 Dose: Not Given Hydroxyzine HCl (Atarax) 25 mg PO Q6 PRN PRN Reason: Agitation Last Admin: 03/11/18 18:20 Dose: 25 mg Moxifloxacin HCl (Avelox Iv 400mg/250ml Ns) 400 mg in 250 mls @ 167 mls/hr IVPB Q24H [facility]; Protocol Last Admin: 03/13/18 14:35 Dose: 167 mls/hr Dextrose (Dextrose 5% In Water 1000 Ml) 1,000 mls @ 0 mls/hr IV .Q0M PRN; Protocol PRN Reason: Hypoglycemia Protocol Insulin Aspart (Novolog) 0 unit SC ACHS [facility] Last Admin: 03/13/18 14:36 Dose: Not Given Insulin Aspart (Novolog) 4 unit SC AC [facility] Last Admin: 03/13/18 14:38 Dose: 4 u Insulin Detemir (Levemir) 8 unit SC HS [facility] Mirtazapine (Remeron) 15 mg PO HS [facility] Last Admin: 03/12/18 21:17 Dose: 15 mg Multivitamins (Hexavitamin) 1 tab PO DAILY [facility] Last Admin: 03/13/18 10:07 Dose: 1 tab Oxycodone HCl (Oxycodone Immediate Release Tab) 5 mg PO Q8H PRN PRN Reason: Pain, moderate (4-7) Last Admin: 03/13/18 10:08 Dose: 5 mg Pantoprazole Sodium (Protonix Ec Tab) 40 mg PO DAILY [facility] Last Admin: 03/13/18 10:06 Dose: 40 mg Rosuvastatin Calcium (Crestor) 5 mg PO [facility] Last Admin: 03/12/18 21:17 Dose: 5 mg Tamsulosin HCl (Flomax) 0.4 mg PO DAILY [facility] Last Admin: 03/13/18 10:07 Dose: 0.4 mg Trazodone HCl (Desyrel) 50 mg PO [facility] Last Admin: 03/12/18 21:18 Dose: 50 mg - Labs Labs: 03/12/18 06:11 03/12/18 06:11 PT 11.5 SECONDS (9.7-12.2) 03/12/18 10:38 INR 1.1 03/12/18 10:38 APTT 35 SECONDS (21-34) H 03/12/18 10:38 - Constitutional Appears: Non-toxic, Chronically Ill - Head Exam Head Exam: NORMOCEPHALIC - Eye Exam Eye Exam: absent: Scleral icterus - ENT Exam ENT Exam: Mucous Membranes Dry - Neck Exam Neck Exam: absent: Lymphadenopathy - Respiratory Exam Respiratory Exam: Decreased Breath Sounds - Cardiovascular Exam Cardiovascular Exam: REGULAR RHYTHM - GI/Abdominal Exam GI & Abdominal Exam: Distended - Rectal Exam Rectal Exam: Deferred - Exam Exam: NORMAL INSPECTION Assessment and Plan (1) Hypoglycemia Status: Acute (2) Pneumonia Status: Acute (3) Abdominal pain Status: Acute (4) Acidosis Status: Acute (5) Acute on chronic renal insufficiency Status: Acute - Assessment and Plan (Free Text) Assessment: IV rx renewed
[2018-03-13] MEDS: Insulin Detemir 100 units/ml Vial (Levemir) SC SCH (21:49)
--- NOTE | 2018-03-14 05:05 | PN ---
DATE: 03/13/2018 ENDOCRINOLOGY FOLLOWUP NOTE LOCATION: Room 564. SUBJECTIVE: This is a 72-year-old male with extremes of glycemic fluctuations, currently being followed closely for metabolic management. He is undergoing IV antibiotic management for recent acute bilateral pneumonitis as noted. His oral intake remains variable as per the nursing staff, and so his glycemic fluctuations persist accordingly. LABORATORY DATA: His glucose values today have ranged from 171 to 203 and 393 mg/dL. His chemistry showed a BUN of 36, sodium 130, potassium 4.6, chloride 96, CO2 of 27, glucose 158, and creatinine 1.7. ASSESSMENT AND PLAN: So at this time, we will modify once again his basal and bolus insulin regimens and increase the Levemir to 10 units subcutaneously at bedtime daily to start tonight. We will also increase the NovoLog to 5 units three times a day before meals as ordered. We will obtain serial chemistries and supplement accordingly as needed. We will follow. Myrna Sheffield MD
[2018-03-14] MEDS ORDERED: Dextrose 50% VIAL Inj (50 ml) IV ONE (06:40)
[2018-03-14 07:52] LABS: BASO # 0.1 K/uL (0.0-0.2); LYMPH # 0.7 K/uL (1.0-4.3); MONO # 0.4 K/uL (0.0-0.8); WHITE BLOOD COUNT 6.6 K/uL (4.8-10.8)
[2018-03-14] MEDS: (Novolog) Insulin Aspart, Recombinant 100 u/ml 10 ml vial SC SCH ×7 (07:57→21:22)
[2018-03-14 08:12] LABS: BASO % 0.9 % (0.0-2.0); EOS % 0.5 % (0.0-4.0); LYMPH % 11.3 % (20.0-40.0); MEAN CELL VOLUME 83.3 fL (80.0-94.0); MEAN CORPUSCULAR HEMOGLOBIN 26.1 pg (27.0-31.0); MEAN CORPUSCULAR HGB CONC 31.3 g/dL (33.0-37.0); MEAN PLATELET VOLUME 8.6 fL (7.2-11.7); MONO % 6.4 % (0.0-10.0); NEUT # 5.3 K/uL (1.8-7.0); NEUT % 80.9 % (50.0-75.0); RBC 2.28 Mil/uL (4.40-5.90); RED CELL DISTRIBUTION WIDTH 19.3 % (11.5-14.5)
[2018-03-14 08:22] LABS: ALB/GLOB RATIO 0.9 (1.0-2.1); ALBUMIN 2.3 g/dL (3.5-5.0); CALCIUM 8.3 mg/dl (8.6-10.4)
[2018-03-14] MEDS: Pantoprazole 40 mg EC Tab PO SCH (09:44)
[2018-03-14] MEDS: Multiple Vitamins Tab PO SCH (09:44)
[2018-03-14] MEDS: Cefpodoxime (Vantin) 200 mg Tab PO SCH ×2 (09:45→21:34)
--- NOTE | 2018-03-14 11:03 | CP.PCM.PN ---
Subjective - Date & Time of Evaluation Date of Evaluation: 03/14/18 Time of Evaluation: 10:30 - Subjective Subjective: PER ERON SAHU, DR BARTHOLOMEW ORDERED 2 UNITS OF PRBC THIS MORNING FOR HGB DROP OF 6.0. (SEE OFFICIAL LAB RESULTS). CONSENT FOR BLOOD TRANSFUSION DISCUSSED AT LENGTH WITH THE PT. HE VERBALIZES UNDERSTANDING OF THE BENEFITS FOR THE TRANSFUSION. HE ALSO VERBALIZES UNDERSTANDING OF REACTION S/S. CONSENT SIGNED WITH PT AND ADELINA LITTLEJOHN. ALSO PER ADELINA LITTLEJOHN, PT'S PENDING STOOL OB TO R/O GI BLEED. PT STILL HAS ASA AND HEPARIN ON MED REC/LIST. I HAVE HELD THESE FOR NOW UNTIL GI BLEED IS R/O. ASA AND HEPARIN MAY BE RESUMED BY PRIMARY TEAM AT THE APPROPRIATE TIME. NO FURTHER ORDERS. Objective - Vital Signs/Intake and Output Vital Signs (last 24 hours): Temp Pulse Resp BP Pulse Ox 98.0 F 105 H 20 127/66 95 03/14/18 07:00 03/14/18 07:41 03/14/18 07:00 03/14/18 07:00 03/14/18 07:00 - Medications Medications: Current Medications Amlodipine Besylate (Norvasc) 10 mg PO DAILY [facility] Last Admin: 03/14/18 09:44 Dose: 10 mg Aspirin (Ecotrin) 81 mg PO DAILY [facility] Last Admin: 03/13/18 09:37 Dose: Not Given Cefpodoxime Proxetil (Vantin) 200 mg PO Q12 [facility]; Protocol Last Admin: 03/14/18 09:45 Dose: 200 mg Dextrose (Dextrose 50% Inj) 0 ml IV STAT PRN; Protocol PRN Reason: Hypoglycemia Protocol Last Admin: 03/14/18 06:37 Dose: 50 ml Dextrose (Glutose 15) 0 gm PO ONCE PRN; Protocol PRN Reason: Hypoglycemia Protocol Last Admin: 03/12/18 07:26 Dose: 15 gm Ferrous Sulfate (Feosol) 325 mg PO BID [facility] Last Admin: 03/14/18 09:45 Dose: 325 mg Gabapentin (Neurontin) 100 mg PO TID [facility] Last Admin: 03/14/18 09:45 Dose: 100 mg Glucagon (Glucagen Diagnostic Kit) 0 mg IM STAT PRN; Protocol PRN Reason: Hypoglycemia Protocol Haloperidol (Haldol) 1 mg PO BID [facility] Last Admin: 03/14/18 09:45 Dose: 1 mg Haloperidol (Haldol) 2 mg PO Q6 PRN PRN Reason: Agitation Last Admin: 03/13/18 15:25 Dose: 2 mg Heparin Sodium (Porcine) (Heparin) 5,000 units SC Q12 [facility] Last Admin: 03/13/18 21:50 Dose: 5,000 units Hydroxyzine HCl (Atarax) 25 mg PO Q6 PRN PRN Reason: Agitation Last Admin: 03/11/18 18:20 Dose: 25 mg Moxifloxacin HCl (Avelox Iv 400mg/250ml Ns) 400 mg in 250 mls @ 167 mls/hr IVPB Q24H [facility]; Protocol Last Admin: 03/13/18 14:35 Dose: 167 mls/hr Dextrose (Dextrose 5% In Water 1000 Ml) 1,000 mls @ 0 mls/hr IV .Q0M PRN; Protocol PRN Reason: Hypoglycemia Protocol Insulin Aspart (Novolog) 0 unit SC ACHS [facility] Last Admin: 03/14/18 07:57 Dose: Not Given Insulin Aspart (Novolog) 4 unit SC AC [facility] Last Admin: 03/14/18 07:57 Dose: Not Given Insulin Detemir (Levemir) 8 unit SC HS [facility] Last Admin: 03/13/18 21:49 Dose: 8 unit Mirtazapine (Remeron) 15 mg PO HS [facility] Last Admin: 03/13/18 21:51 Dose: 15 mg Multivitamins (Hexavitamin) 1 tab PO DAILY [facility] Last Admin: 03/14/18 09:44 Dose: 1 tab Oxycodone HCl (Oxycodone Immediate Release Tab) 5 mg PO Q8H PRN PRN Reason: Pain, moderate (4-7) Last Admin: 03/13/18 10:08 Dose: 5 mg Pantoprazole Sodium (Protonix Ec Tab) 40 mg PO DAILY [facility] Last Admin: 03/14/18 09:44 Dose: 40 mg Rosuvastatin Calcium (Crestor) 5 mg PO [facility] Last Admin: 03/13/18 21:51 Dose: 5 mg Tamsulosin HCl (Flomax) 0.4 mg PO DAILY [facility] Last Admin: 03/14/18 09:45 Dose: 0.4 mg Trazodone HCl (Desyrel) 50 mg PO [facility] Last Admin: 03/13/18 21:51 Dose: 50 mg - Labs Labs: 10/20/18 07:42 03/14/18 07:42 PT 11.5 SECONDS (9.7-12.2) 03/12/18 10:38 INR 1.1 03/12/18 10:38 APTT 35 SECONDS (21-34) H 03/12/18 10:38
[2018-03-14] MEDS: oxyCODONE 5 mg Immediate Release Tab PO PRN ×2 (12:03→22:29)
--- NOTE | 2018-03-14 12:38 | PN ---
DATE: 03/14/2018 SUBJECTIVE: I saw him in bed on the fifth floor. He is alert, little bit confused, but he knows he is in the hospital. He is on one-to-one. Psych saw him and feels he has loosening of associations, paranoia and delusions besides his medical issues of pneumonia, renal insufficiency, high and low blood sugars. Insulins are being adjusted. He is eating better. Last chest x-ray on 03/11/2018 showed diminishing bilateral basilar medial right upper lobe airspace disease, is improving. MEDICATIONS: He is currently on Atarax, Avelox, Crestor, Desyrel, dextrose, Ecotrin, Feosol, Flomax, glucagon, , Haldol, heparin, Levemir, Neurontin, Norvasc, NovoLog, oxycodone, Protonix, Remeron, and Vantin. LABORATORY DATA: He has 6.7 white count, 9.1 hemoglobin, 28.6 hematocrit with 228 platelets. Last blood sugar was 180. Last chemistry was on 03/12/2018; 137 sodium, potassium 3.8, BUN 35, creatinine 1.5. PLAN: When I get the okay from Psychiatry, we will get him off the one-to-one and if possible, he might need to have subacute rehab. Physical Therapy states home with services. For now subacute rehab, we just have to get him mentally better. Avelox for the pneumonia. Adjust the insulin for his blood sugars. I will ask to get him off the one-to-one if the psychiatry service is okay. Zohaib Morgan DO MTDD
--- NOTE | 2018-03-14 14:05 | PN ---
DATE: 03/14/2018 LOCATION: Room 564. SUBJECTIVE: This is a 72-year-old male with recent uncontrolled type 2 insulin-requiring diabetes, now being followed closely for metabolic management. Once again, his glucose values are extremely fluctuating with hypoglycemic episodes and hyperglycemic accelerations at bedtime as noted. His glucose level was 393 at bedtime and 28 early childhood assistant today as noted. LABORATORY DATA: The latest chemistries showed the BUN of 56, sodium 139, potassium 3.9, chloride 107, CO2 of 24, glucose 151 and creatinine 1.5. PLAN: So at this time we will continue the modified basal and bolus insulin regimen as given with Levemir given as 8 units subcu at bedtime daily and NovoLog given as 4 units t.i.d. before meals as ordered. We will obtain serial chemistries and supplement accordingly as needed. We will follow with you. Myrna Sheffield MD
[2018-03-14] MEDS: Insulin Detemir 100 units/ml Vial (Levemir) SC SCH (21:36)
[2018-03-15] MEDS: (Novolog) Insulin Aspart, Recombinant 100 u/ml 10 ml vial SC SCH ×9 (06:17→21:24)
--- NOTE | 2018-03-15 07:17 | CP.PCM.PN ---
<Humble Franks - Last Filed: 03/15/18 08:30> Subjective - Date & Time of Evaluation Date of Evaluation: 03/15/18 Time of Evaluation: 07:12 - Subjective Subjective: 72M here for pneumonia treatment, and we were previously seeing this admission for HCV management now with Hb of 6.0. We were asked to see for possible GI chelsi rce. He has history of gastric ulcer, esophagitis, HCV, chronic pancreatitis, T2DM. Regarding his Hb, it was ~12 one week ago and 9 a few days ago and repeat testing yesterday was 6.0. Etiology is unclear as he is completely asymptomatic, and no signs of obvious bleeding anywhere. A FOBT was done yesterday and NEGATIVE. Patient was seen this AM walking around nurses station with PT, completely comfortable requesting to go home. He stated he had a BM this AM that was brown, denies vomiting or blood in urine. He is tolerating a diet, requesting food. Denies abdominal pain. Objective - Vital Signs/Intake and Output Vital Signs (last 24 hours): Temp Pulse Resp BP Pulse Ox 97.7 F 91 H 18 112/67 100 03/14/18 19:30 03/14/18 23:15 03/14/18 19:30 03/14/18 19:30 03/14/18 15:00 Intake and Output: 03/15/18 03/15/18 06:59 18:59 Intake Total 650 Balance 650 - Medications Medications: Current Medications Amlodipine Besylate (Norvasc) 10 mg PO DAILY [facility] Last Admin: 03/14/18 09:44 Dose: 10 mg Aspirin (Ecotrin) 81 mg PO DAILY [facility] Last Admin: 03/14/18 11:06 Dose: Not Given Cefpodoxime Proxetil (Vantin) 200 mg PO Q12 [facility]; Protocol Last Admin: 03/14/18 21:34 Dose: 200 mg Dextrose (Dextrose 50% Inj) 0 ml IV STAT PRN; Protocol PRN Reason: Hypoglycemia Protocol Last Admin: 03/14/18 06:37 Dose: 50 ml Dextrose (Glutose 15) 0 gm PO ONCE PRN; Protocol PRN Reason: Hypoglycemia Protocol Last Admin: 03/12/18 07:26 Dose: 15 gm Ferrous Sulfate (Feosol) 325 mg PO BID [facility] Last Admin: 10/20/18 17:29 Dose: 325 mg Gabapentin (Neurontin) 100 mg PO TID [facility] Last Admin: 03/14/18 17:29 Dose: 100 mg Glucagon (Glucagen Diagnostic Kit) 0 mg IM STAT PRN; Protocol PRN Reason: Hypoglycemia Protocol Haloperidol (Haldol) 1 mg PO BID [facility] Last Admin: 03/14/18 17:29 Dose: 1 mg Haloperidol (Haldol) 2 mg PO Q6 PRN PRN Reason: Agitation Last Admin: 03/13/18 15:25 Dose: 2 mg Heparin Sodium (Porcine) (Heparin) 5,000 units SC Q12 [facility] Last Admin: 03/14/18 11:07 Dose: Not Given Hydroxyzine HCl (Atarax) 25 mg PO Q6 PRN PRN Reason: Agitation Last Admin: 03/11/18 18:20 Dose: 25 mg Dextrose (Dextrose 5% In Water 1000 Ml) 1,000 mls @ 0 mls/hr IV .Q0M PRN; Protocol PRN Reason: Hypoglycemia Protocol Moxifloxacin HCl (Avelox Iv 400mg/250ml Ns) 400 mg in 250 mls @ 167 mls/hr IVPB Q24H [facility]; Protocol Insulin Aspart (Novolog) 4 unit SC AC [facility] Last Admin: 03/15/18 06:17 Dose: 4 units Insulin Aspart (Novolog) 0 unit SC ACHS [facility] Last Admin: 03/15/18 06:19 Dose: 4 units Insulin Detemir (Levemir) 8 unit SC HS [facility] Last Admin: 03/14/18 21:36 Dose: Not Given Mirtazapine (Remeron) 15 mg PO HS [facility] Last Admin: 03/14/18 21:34 Dose: 15 mg Multivitamins (Hexavitamin) 1 tab PO DAILY [facility] Last Admin: 03/14/18 09:44 Dose: 1 tab Oxycodone HCl (Oxycodone Immediate Release Tab) 5 mg PO Q8H PRN PRN Reason: Pain, moderate (4-7) Last Admin: 03/14/18 22:29 Dose: 5 mg Pantoprazole Sodium (Protonix Ec Tab) 40 mg PO DAILY [facility] Last Admin: 03/14/18 09:44 Dose: 40 mg Rosuvastatin Calcium (Crestor) 5 mg PO HS [facility] Last Admin: 03/14/18 21:34 Dose: 5 mg Tamsulosin HCl (Flomax) 0.4 mg PO DAILY [facility] Last Admin: 03/14/18 09:45 Dose: 0.4 mg Trazodone HCl (Desyrel) 50 mg PO HS [facility] Last Admin: 03/14/18 21:34 Dose: 50 mg - Labs Labs: 03/14/18 07:42 03/14/18 07:42 PT 11.5 SECONDS (9.7-12.2) 03/12/18 10:38 INR 1.1 03/12/18 10:38 APTT 35 SECONDS (21-34) H 03/12/18 10:38 - Constitutional Appears: Well, Non-toxic, No Acute Distress - Head Exam Head Exam: NORMAL INSPECTION - Eye Exam Eye Exam: Normal appearance - ENT Exam ENT Exam: Mucous Membranes Moist - Respiratory Exam Respiratory Exam: Clear to Ausculation Bilateral, NORMAL BREATHING PATTERN - Cardiovascular Exam Cardiovascular Exam: REGULAR RHYTHM, +S1, +S2 - GI/Abdominal Exam GI & Abdominal Exam: Soft, Normal Bowel Sounds. absent: Tenderness - Extremities Exam Extremities Exam: Normal Inspection - Neurological Exam Neurological Exam: Alert, Awake, Normal Gait, Oriented x3 - Psychiatric Exam Psychiatric exam: Normal Affect, Normal Mood - Skin Skin Exam: Dry, Normal Color. absent: Pallor Assessment and Plan - Assessment and Plan (Free Text) Assessment: Acute on chronic anemia - unclear etiology, does not appear to be GI bleed. DM - uncontrolled Pneumonia CKD CAD CHF HCV Abdominal US and recent CT imaging reviewed by me showing non-cirrhotic liver without presence of mass lesions - s/p 2 units pRBCs Hb from 6.0 to 9.1. - Possible lab error vs other bleeding. no signs of GI bleeding. Patient is asymptomatic which is inconsistent given the dramatic change in Hb. FOBT negative. - Diet as tolerated per PMD. - Possible EGD tomorrow or as outpatient as this is not emergent. Will discuss w ith PMD. - Continue PPI. - May consider CT abd/pelv, defer to PMD. - Continue with antibiotic therapy as per medical team - Patient will require additional outpatient follow up with consideration of potential treatment with all oral therapy if willing to establish outpatient care. <Rubén Rdz Y - Last Filed: 03/15/18 08:39> Objective - Vital Signs/Intake and Output Vital Signs (last 24 hours): Temp Pulse Resp BP Pulse Ox 97.8 F 71 20 129/81 95 03/15/18 07:11 03/15/18 07:11 03/15/18 07:11 03/15/18 07:11 03/15/18 07:11 Intake and Output: 03/15/18 03/15/18 06:59 18:59 Intake Total 650 Balance 650 - Medications Medications: Current Medications Amlodipine Besylate (Norvasc) 10 mg PO DAILY [facility] Last Admin: 03/14/18 09:44 Dose: 10 mg Aspirin (Ecotrin) 81 mg PO DAILY [facility] Last Admin: 03/14/18 11:06 Dose: Not Given Cefpodoxime Proxetil (Vantin) 200 mg PO Q12 [facility]; Protocol Last Admin: 03/14/18 21:34 Dose: 200 mg Dextrose (Dextrose 50% Inj) 0 ml IV STAT PRN; Protocol PRN Reason: Hypoglycemia Protocol Last Admin: 03/14/18 06:37 Dose: 50 ml Dextrose (Glutose 15) 0 gm PO ONCE PRN; Protocol PRN Reason: Hypoglycemia Protocol Last Admin: 03/12/18 07:26 Dose: 15 gm Ferrous Sulfate (Feosol) 325 mg PO BID [facility] Last Admin: 03/14/18 17:29 Dose: 325 mg Gabapentin (Neurontin) 100 mg PO TID [facility] Last Admin: 03/14/18 17:29 Dose: 100 mg Glucagon (Glucagen Diagnostic Kit) 0 mg IM STAT PRN; Protocol PRN Reason: Hypoglycemia Protocol Haloperidol (Haldol) 1 mg PO BID [facility] Last Admin: 03/14/18 17:29 Dose: 1 mg Haloperidol (Haldol) 2 mg PO Q6 PRN PRN Reason: Agitation Last Admin: 03/13/18 15:25 Dose: 2 mg Heparin Sodium (Porcine) (Heparin) 5,000 units SC Q12 [facility] Last Admin: 03/14/18 11:07 Dose: Not Given Hydroxyzine HCl (Atarax) 25 mg PO Q6 PRN PRN Reason: Agitation Last Admin: 03/11/18 18:20 Dose: 25 mg Moxifloxacin HCl (Avelox Iv 400mg/250ml Ns) 400 mg in 250 mls @ 167 mls/hr IVPB Q24H [facility]; Protocol Insulin Aspart (Novolog) 4 unit SC [facility] Last Admin: 03/15/18 07:32 Dose: Not Given Insulin Aspart (Novolog) 0 unit SC ACHS [facility] Last Admin: 03/15/18 07:32 Dose: Not Given Insulin Detemir (Levemir) 8 unit SC HS [facility] Last Admin: 03/14/18 21:36 Dose: Not Given Mirtazapine (Remeron) 15 mg PO HS [facility] Last Admin: 03/14/18 21:34 Dose: 15 mg Multivitamins (Hexavitamin) 1 tab PO DAILY [facility] Last Admin: 03/14/18 09:44 Dose: 1 tab Oxycodone HCl (Oxycodone Immediate Release Tab) 5 mg PO Q8H PRN PRN Reason: Pain, moderate (4-7) Last Admin: 03/14/18 22:29 Dose: 5 mg Pantoprazole Sodium (Protonix Ec Tab) 40 mg PO DAILY [facility] Last Admin: 03/14/18 09:44 Dose: 40 mg Rosuvastatin Calcium (Crestor) 5 mg PO HS [facility] Last Admin: 03/14/18 21:34 Dose: 5 mg Tamsulosin HCl (Flomax) 0.4 mg PO DAILY [facility] Last Admin: 03/14/18 09:45 Dose: 0.4 mg Trazodone HCl (Desyrel) 50 mg PO [facility] Last Admin: 03/14/18 21:34 Dose: 50 mg - Labs Labs: 03/15/18 06:45 03/14/18 07:42 PT 11.5 SECONDS (9.7-12.2) 03/12/18 10:38 INR 1.1 03/12/18 10:38 APTT 35 SECONDS (21-34) H 03/12/18 10:38 Attending/Attestation - Attestation I have personally seen and examined this patient.: Yes I have fully participated in the care of the patient.: Yes I have reviewed all pertinent clinical information, including history, physical exam and plan: Yes Notes (Text): 03/15/18 08:36 I have seen and examined patient with GI fellow. No acute events overnight, he is seen ambulating in room without any complaints. He had a normal formed bowel movement this morning without presence of blood. He denies abdominal pain, nausea, vomiting. Tolerating PO liquids without difficulty. DM - labile Pneumonia HCV Anemia CKD CAD - Advance diet as tolerated - H/H stable, s/p PRBC transfusion, no evidence of overt bleeding noted - Continue with PPI therapy - Currently no indication for endoscopic intervention, will continue to monitor clinical course. He will require outpatient follow up for chronic HCV if he is able to establish care.
[2018-03-15 07:22] LABS: BASO # 0.1 K/uL (0.0-0.2); BASO % 0.9 % (0.0-2.0); EOS # 0.1 K/uL (0.0-0.7); LYMPH # 0.6 K/uL (1.0-4.3); LYMPH % 9.7 % (20.0-40.0); MEAN CELL VOLUME 84.5 fL (80.0-94.0); MEAN CORPUSCULAR HGB CONC 33.2 g/dL (33.0-37.0); MEAN PLATELET VOLUME 8.6 fL (7.2-11.7); MONO # 0.5 K/uL (0.0-0.8); MONO % 7.7 % (0.0-10.0); NEUT # 5.2 K/uL (1.8-7.0); NEUT % 80.7 % (50.0-75.0); PLATELET COUNT 243 K/uL (130-400); RBC 3.25 Mil/uL (4.40-5.90); RED CELL DISTRIBUTION WIDTH 17.6 % (11.5-14.5); WHITE BLOOD COUNT 6.4 K/uL (4.8-10.8)
[2018-03-15 07:36] LABS: HEMOGLOBIN 9.1 g/dL (12.0-18.0)
[2018-03-15 08:38] LABS: BLOOD UREA NITROGEN 42 mg/dL (9-20); GFR NON-AFRICAN AMERICAN 50
[2018-03-15 08:39] LABS: ALB/GLOB RATIO 0.9 (1.0-2.1); ALBUMIN 2.5 g/dL (3.5-5.0); ALT/SGPT 54 U/L (21-72); AST/SGOT 80 U/L (17-59); CALCIUM 8.1 mg/dl (8.6-10.4)
[2018-03-15 08:52] LABS: BASOPHIL 1 % (0-2); EOSINOPHIL 1 % (0-4); LYMPHOCYTE 10 % (20-40); MONOCYTE 8 % (0-10); NEUTROPHIL 80 % (50-75); PLATELET ESTIMATE NORMAL (NORMAL); TOTAL CELLS COUNTED 100
[2018-03-15 08:53] LABS: ANISOCYTOSIS MODERATE; HYPOCHROMIC SLIGHT; POIKILOCYTOSIS SLIGHT; POLYCHROMIC SLIGHT; TOXIC GRANULATION PRESENT
[2018-03-15 08:54] LABS: TARGET CELLS SLIGHT
[2018-03-15 08:55] LABS: LARGE PLATELETS PRESENT
[2018-03-15] MEDS: Multiple Vitamins Tab PO SCH (09:11)
[2018-03-15] MEDS: Pantoprazole 40 mg EC Tab PO SCH (09:11)
[2018-03-15] MEDS: Cefpodoxime (Vantin) 200 mg Tab PO SCH ×2 (09:12→22:03)
[2018-03-15] MEDS: Moxifloxacin IV 400mg/250ml NS 400 MG/250 ML BAG IVPB SCH (13:42)
--- NOTE | 2018-03-15 15:01 | PN ---
DATE: 03/15/2018 SUBJECTIVE: He is sitting out of bed to chair this morning. He is asking to be sent home, here he has got a one-to-one and he is telling me that that lady is God. He is little bit confused this morning. Psychiatry wrote in their note yesterday that he has severe functional impairment, so I need Psychiatry to get him better mentally. Physically, he is doing better. He was transfused two units of packed red blood cells when his hemoglobin dropped down to 6, it is now up to 9.1. GI said that he is GI stable and on their point of view can be discharged. Endocrinology said that they are adjusting his insulin. Medically, he could be discharged but psychologically, he cannot at this time. PHYSICAL EXAMINATION: VITAL SIGNS: He has 97.8 temperature, 71 pulse, 129/81 blood pressure, 20 respiratory rate, 95% on O2 sat on 2 liters nasal cannula. HEENT: Head is atraumatic, normocephalic. HEART: Regular rate. LUNGS: Decreased breath sounds, but clear. ABDOMEN: Soft. EXTREMITIES: No edema. NEUROLOGIC: He is alert, talking a little bit off. MEDICATIONS: I went over his medication list and I stopped some medications that possibly could be causing him some mental changes. I stopped his oxycodone and his hydroxyzine, hoping maybe that might help him a little bit mentally. I do not recall him ever being on those two medications in the past. LABORATORY DATA: He has a white count of 6.4, hemoglobin 9.1 after two units, 27.4 hematocrit with 243 platelets. He has 136 sodium, potassium is 5, BUN is 42, creatinine 1.4, GFR is up to 50. Sugars have been 277 and 380. Calcium is 8.1, total bilirubin is 0.9. AST is 80, ALT is 54, alk phos is 205, all elevated a little bit. Total protein is 5.4. ASSESSMENT AND PLAN: I am hoping in the next 24 hours, he can be mentally improved. We will see what Psychiatry has to say. I am hoping maybe they will take him to the psych floor to finish his treatment. We will see what they suggest. We will continue with aggressive treatment and care. He had very bad blood sugars, high and low, over 500, less than 40, being adjusted by the cinnamon grinder. He has had low hemoglobins and then transfused. Now, he is mentally off and is being adjusted with psychiatry medications, his Haldol and Remeron. Continue aggressive treatment and care and his home antibiotic, Avelox and Dilantin by Infectious Disease. Once we can get him off one-to-one, we can start thinking about discharge planning or maybe discharge him to Psych. Zohaib Morgan DO MTDGeoffrey
--- NOTE | 2018-03-15 15:23 | CP.PCM.PN ---
Subjective - Date & Time of Evaluation Date of Evaluation: 03/15/18 Time of Evaluation: 09:00 - Subjective Subjective: seen by GI for severe anemia for out pt work up awake alert NAD denies chest pain or cough Objective - Vital Signs/Intake and Output Vital Signs (last 24 hours): Temp Pulse Resp BP Pulse Ox 97.8 F 71 20 129/81 95 03/15/18 07:11 03/15/18 07:11 03/15/18 07:11 03/15/18 07:11 03/15/18 07:11 Intake and Output: 03/15/18 03/15/18 06:59 18:59 Intake Total 650 Balance 650 - Medications Medications: Current Medications Acetaminophen (Tylenol 325mg Tab) 650 mg PO Q6 PRN PRN Reason: Pain, Mild (1-3) Amlodipine Besylate (Norvasc) 10 mg PO DAILY [facility] Last Admin: 03/15/18 09:11 Dose: 10 mg Aspirin (Ecotrin) 81 mg PO DAILY [facility] Last Admin: 03/14/18 11:06 Dose: Not Given Cefpodoxime Proxetil (Vantin) 200 mg PO Q12 [facility]; Protocol Last Admin: 03/15/18 09:12 Dose: 200 mg Dextrose (Dextrose 50% Inj) 0 ml IV STAT PRN; Protocol PRN Reason: Hypoglycemia Protocol Last Admin: 03/14/18 06:37 Dose: 50 ml Dextrose (Glutose 15) 0 gm PO ONCE PRN; Protocol PRN Reason: Hypoglycemia Protocol Last Admin: 03/12/18 07:26 Dose: 15 gm Ferrous Sulfate (Feosol) 325 mg PO BID [facility] Last Admin: 03/15/18 09:11 Dose: 325 mg Gabapentin (Neurontin) 100 mg PO TID [facility] Last Admin: 03/15/18 13:02 Dose: 100 mg Glucagon (Glucagen Diagnostic Kit) 0 mg IM STAT PRN; Protocol PRN Reason: Hypoglycemia Protocol Haloperidol (Haldol) 1 mg PO BID [facility] Last Admin: 03/15/18 09:12 Dose: 1 mg Haloperidol (Haldol) 2 mg PO Q6 PRN PRN Reason: Agitation Last Admin: 03/13/18 15:25 Dose: 2 mg Heparin Sodium (Porcine) (Heparin) 5,000 units SC Q12 [facility] Last Admin: 03/14/18 11:07 Dose: Not Given Moxifloxacin HCl (Avelox Iv 400mg/250ml Ns) 400 mg in 250 mls @ 167 mls/hr IVPB Q24H [facility]; Protocol Last Admin: 03/15/18 13:42 Dose: 167 mls/hr Insulin Aspart (Novolog) 4 unit SC AC [facility] Last Admin: 03/15/18 12:47 Dose: 4 units Insulin Aspart (Novolog) 0 unit SC ACHS [facility] Last Admin: 03/15/18 12:17 Dose: Not Given Insulin Detemir (Levemir) 8 unit SC HS [facility] Last Admin: 03/14/18 21:36 Dose: Not Given Mirtazapine (Remeron) 15 mg PO HS [facility] Last Admin: 03/14/18 21:34 Dose: 15 mg Multivitamins (Hexavitamin) 1 tab PO DAILY [facility] Last Admin: 03/15/18 09:11 Dose: 1 tab Pantoprazole Sodium (Protonix Ec Tab) 40 mg PO DAILY [facility] Last Admin: 03/15/18 09:11 Dose: 40 mg Rosuvastatin Calcium (Crestor) 5 mg PO [facility] Last Admin: 03/14/18 21:34 Dose: 5 mg Tamsulosin HCl (Flomax) 0.4 mg PO DAILY [facility] Last Admin: 03/15/18 09:11 Dose: 0.4 mg Trazodone HCl (Desyrel) 50 mg PO [facility] Last Admin: 03/14/18 21:34 Dose: 50 mg - Labs Labs: 03/15/18 06:45 03/15/18 06:45 PT 11.5 SECONDS (9.7-12.2) 03/12/18 10:38 INR 1.1 03/12/18 10:38 APTT 35 SECONDS (21-34) H 03/12/18 10:38 - Constitutional Appears: Non-toxic, Chronically Ill - Head Exam Head Exam: NORMOCEPHALIC - Eye Exam Eye Exam: PERRL - ENT Exam ENT Exam: Mucous Membranes Dry - Neck Exam Neck Exam: absent: Lymphadenopathy - Respiratory Exam Respiratory Exam: Decreased Breath Sounds - Cardiovascular Exam Cardiovascular Exam: REGULAR RHYTHM - GI/Abdominal Exam GI & Abdominal Exam: Distended, Soft - Rectal Exam Rectal Exam: Deferred - Exam Exam: NORMAL INSPECTION Assessment and Plan (1) Hypoglycemia Status: Acute (2) Pneumonia Status: Acute (3) Abdominal pain Status: Acute (4) Acidosis Status: Acute (5) Acute on chronic renal insufficiency Status: Acute - Assessment and Plan (Free Text) Assessment: follow up cxr ordered iv rx renewed
--- NOTE | 2018-03-15 16:32 | RAD ---
Date of service: 03/15/2018 HISTORY: pneumonia COMPARISON: 01/29/2018 and 03/11/2018. TECHNIQUE: Chest PA and lateral FINDINGS: LUNGS: Continued improvement in bilateral multifocal infiltrates. This is particularly evident in the right upper lobe. PLEURA: No significant pleural effusion identified. No pneumothorax apparent. CARDIOVASCULAR: No atherosclerotic calcification present No radiographic findings to suggest acute or significant cardiovascular disease. OSSEOUS STRUCTURES: No significant abnormalities. VISUALIZED UPPER ABDOMEN: Normal. OTHER FINDINGS: Stable hiatal hernia. IMPRESSION: Continued improvement in multifocal infiltrates.
--- NOTE | 2018-03-15 20:13 | PN ---
DATE: 03/15/2018 LOCATION: In room 564. SUBJECTIVE: This is a 72-year-old male with recent uncontrolled type 2 insulin-requiring diabetes, now being followed closely for metabolic management. His glycemic levels are still fluctuating as noted thereof and the glucose values overnight have ranged from 277 to 367 mg/dL. LABORATORY DATA: His chemistries showed the BUN of 42, sodium 136, potassium 5, chloride 106, CO2 of 22, glucose 380 and creatinine 1.4. ASSESSMENT AND PLAN: However, he is still on a liquid diet at this time with very minimal and variable meal portions, so, we will hold off further dose adjustment till his diet is advanced to solid food as noted. We will continue the low dose basal and bolus insulin regimen as given with NovoLog given as 4 units subcutaneously t.i.d. before meals as ordered. We will continue the Levemir given as 8 units subcutaneously at bedtime daily as given. We will obtain serial chemistries and supplement accordingly as needed. We will follow. Myrna Sheffield MD
[2018-03-15] MEDS ORDERED: Insulin Detemir 100 units/ml Vial (Levemir) SC ONE (21:47)
[2018-03-15] MEDS: Insulin Detemir 100 units/ml Vial (Levemir) SC SCH (21:48)
[2018-03-16 05:59] LABS: BASO # 0.1 K/uL (0.0-0.2); BASO % 1.2 % (0.0-2.0); EOS # 0.1 K/uL (0.0-0.7); EOS % 2.1 % (0.0-4.0); HEMOGLOBIN 8.7 g/dL (12.0-18.0); LYMPH # 0.9 K/uL (1.0-4.3); LYMPH % 12.3 % (20.0-40.0); MEAN CELL VOLUME 84.6 fL (80.0-94.0); MEAN CORPUSCULAR HEMOGLOBIN 27.5 pg (27.0-31.0); MEAN CORPUSCULAR HGB CONC 32.5 g/dL (33.0-37.0); MEAN PLATELET VOLUME 8.4 fL (7.2-11.7); MONO # 0.5 K/uL (0.0-0.8); MONO % 7.9 % (0.0-10.0); NEUT # 5.3 K/uL (1.8-7.0); NEUT % 76.5 % (50.0-75.0); RBC 3.15 Mil/uL (4.40-5.90); WHITE BLOOD COUNT 6.9 K/uL (4.8-10.8)
[2018-03-16 06:25] LABS: ALB/GLOB RATIO 0.9 (1.0-2.1); ALBUMIN 2.5 g/dL (3.5-5.0); CALCIUM 8.3 mg/dl (8.6-10.4)
[2018-03-16] MEDS: (Novolog) Insulin Aspart, Recombinant 100 u/ml 10 ml vial SC SCH ×7 (07:38→22:06)
[2018-03-16 08:22] VITALS: O2SAT 98
[2018-03-16] MEDS: Cefpodoxime (Vantin) 200 mg Tab PO SCH (09:08)
[2018-03-16] MEDS: Pantoprazole 40 mg EC Tab PO SCH (09:08)
[2018-03-16] MEDS: Multiple Vitamins Tab PO SCH (09:08)
--- NOTE | 2018-03-16 09:10 | CP.PCM.PN ---
<Alex Cooper - Last Filed: 03/16/18 10:14> Subjective - Date & Time of Evaluation Date of Evaluation: 03/16/18 Time of Evaluation: 07:50 - Subjective Subjective: PGY6 GI Fellow Progress Note Patient seen and examined bedside this morning. The patient states that he is feeling well and has no complaints. Denies any rectal bleeding, hematemesis. No abdominal pain, nausea, vomiting. Tolerating diet. 12 system ROS performed and negative except where stated Objective - Vital Signs/Intake and Output Vital Signs (last 24 hours): Temp Pulse Resp BP Pulse Ox 97.8 F 70 20 144/88 98 03/16/18 08:21 03/16/18 08:21 03/16/18 08:21 03/16/18 08:21 03/16/18 08:21 Intake and Output: 03/16/18 03/16/18 06:59 18:59 Intake Total 800 Balance 800 - Medications Medications: Current Medications Acetaminophen (Tylenol 325mg Tab) 650 mg PO Q6 PRN PRN Reason: Pain, Mild (1-3) Last Admin: 03/15/18 16:06 Dose: 650 mg Amlodipine Besylate (Norvasc) 10 mg PO DAILY [facility] Last Admin: 03/15/18 09:11 Dose: 10 mg Aspirin (Ecotrin) 81 mg PO DAILY [facility] Last Admin: 03/14/18 11:06 Dose: Not Given Cefpodoxime Proxetil (Vantin) 200 mg PO Q12 [facility]; Protocol Last Admin: 03/15/18 22:03 Dose: 200 mg Dextrose (Dextrose 50% Inj) 0 ml IV STAT PRN; Protocol PRN Reason: Hypoglycemia Protocol Last Admin: 03/14/18 06:37 Dose: 50 ml Dextrose (Glutose 15) 0 gm PO ONCE PRN; Protocol PRN Reason: Hypoglycemia Protocol Last Admin: 03/12/18 07:26 Dose: 15 gm Ferrous Sulfate (Feosol) 325 mg PO BID [facility] Last Admin: 03/15/18 17:20 Dose: 325 mg Gabapentin (Neurontin) 100 mg PO TID [facility] Last Admin: 03/15/18 17:20 Dose: 100 mg Glucagon (Glucagen Diagnostic Kit) 0 mg IM STAT PRN; Protocol PRN Reason: Hypoglycemia Protocol Haloperidol (Haldol) 1 mg PO BID [facility] Last Admin: 03/15/18 17:21 Dose: 1 mg Haloperidol (Haldol) 2 mg PO Q6 PRN PRN Reason: Agitation Last Admin: 03/13/18 15:25 Dose: 2 mg Heparin Sodium (Porcine) (Heparin) 5,000 units SC Q12 [facility] Last Admin: 03/14/18 11:07 Dose: Not Given Moxifloxacin HCl (Avelox Iv 400mg/250ml Ns) 400 mg in 250 mls @ 167 mls/hr IVPB Q24H [facility]; Protocol Last Admin: 03/15/18 13:42 Dose: 167 mls/hr Insulin Aspart (Novolog) 4 unit SC AC [facility] Last Admin: 03/15/18 17:20 Dose: 4 units Insulin Aspart (Novolog) 0 unit SC ACHS [facility] Last Admin: 03/16/18 07:38 Dose: Not Given Insulin Detemir (Levemir) 8 unit SC HS [facility] Last Admin: 03/15/18 21:48 Dose: Not Given Mirtazapine (Remeron) 15 mg PO HS [facility] Last Admin: 03/15/18 22:03 Dose: 15 mg Multivitamins (Hexavitamin) 1 tab PO DAILY [facility] Last Admin: 03/15/18 09:11 Dose: 1 tab Pantoprazole Sodium (Protonix Ec Tab) 40 mg PO DAILY [facility] Last Admin: 03/15/18 09:11 Dose: 40 mg Rosuvastatin Calcium (Crestor) [address] [facility] Last Admin: 03/15/18 22:03 Dose: 5 mg Tamsulosin HCl (Flomax) 0.4 mg PO DAILY [facility] Last Admin: 03/15/18 09:11 Dose: 0.4 mg Trazodone HCl (Desyrel) [address] [facility] Last Admin: 03/15/18 22:03 Dose: 50 mg - Labs Labs: 03/16/18 05:52 03/16/18 05:52 PT 11.5 SECONDS (9.7-12.2) 03/12/18 10:38 INR 1.1 03/12/18 10:38 APTT 35 SECONDS (21-34) H 03/12/18 10:38 - Constitutional Appears: Non-toxic, No Acute Distress - Eye Exam Eye Exam: EOMI, PERRL - ENT Exam ENT Exam: Mucous Membranes Moist - Respiratory Exam Respiratory Exam: Clear to Ausculation Bilateral. absent: Rales, Rhonchi, Wheezes - Cardiovascular Exam Cardiovascular Exam: RRR, +S1, +S2 - GI/Abdominal Exam GI & Abdominal Exam: Soft, Normal Bowel Sounds. absent: Distended, Firm, Guarding, Rigid, Tenderness, Organomegaly - Extremities Exam Extremities Exam: Normal Inspection. absent: Pedal Edema - Neurological Exam Neurological Exam: Alert, Awake, Oriented x3 - Psychiatric Exam Psychiatric exam: Normal Affect, Normal Mood - Skin Skin Exam: Dry, Warm Assessment and Plan - Assessment and Plan (Free Text) Assessment: Patient is a 72yo male with PMHx significant for uncontroleld DM with multiple episodes of DKA, recently [place] [facility] [place] CKD, CAD, CHF, HTN, HLD, PUD who was admitted for altered mental status related to hypoglycemia. He was recently admitted but [place] [facility] [place] -Acute anemia, no obvious blood loss -Multifocal pneumonia -Altered mental status, resolved -HCV Ab positive Plan: -HGB stable following 2 unit PRBC transfusion -No evidence for acute overt GI blood loss which should be evident in a 3g drop in HGB -Patient does have h/o PUD, he remains on PPI therapy presently -Patient requires outpatient follow up given HCV Ab+ (Viral RNA Qual pending) -Patient needs repeat colonoscopy as prior study limited due to poor prep - can be arranged outpatient -Ongoing treatment for pneumonia per primary service -Supportive care <Rubén Rdz - Last Filed: 03/16/18 10:27> Objective - Vital Signs/Intake and Output Vital Signs (last 24 hours): Temp Pulse Resp BP Pulse Ox 97.8 F 70 20 144/88 98 03/16/18 08:21 03/16/18 08:21 03/16/18 08:21 03/16/18 08:21 03/16/18 08:21 Intake and Output: 03/16/18 03/16/18 06:59 18:59 Intake Total 800 Balance 800 - Medications Medications: Current Medications Acetaminophen (Tylenol 325mg Tab) 650 mg PO Q6 PRN PRN Reason: Pain, Mild (1-3) Last Admin: 03/15/18 16:06 Dose: 650 mg Amlodipine Besylate (Norvasc) 10 mg PO DAILY [facility] Last Admin: 03/16/18 09:07 Dose: 10 mg Aspirin (Ecotrin) 81 mg PO DAILY [facility] Last Admin: 03/14/18 11:06 Dose: Not Given Dextrose (Dextrose 50% Inj) 0 ml IV STAT PRN; Protocol PRN Reason: Hypoglycemia Protocol Last Admin: 03/14/18 06:37 Dose: 50 ml Dextrose (Glutose 15) 0 gm PO ONCE PRN; Protocol PRN Reason: Hypoglycemia Protocol Last Admin: 03/12/18 07:26 Dose: 15 gm Ferrous Sulfate (Feosol) 325 mg PO BID [facility] Last Admin: 03/16/18 09:08 Dose: 325 mg Gabapentin (Neurontin) 100 mg PO TID [facility] Last Admin: 03/16/18 09:08 Dose: 100 mg Glucagon (Glucagen Diagnostic Kit) 0 mg IM STAT PRN; Protocol PRN Reason: Hypoglycemia Protocol Haloperidol (Haldol) 1 mg PO BID [facility] Last Admin: 03/16/18 09:08 Dose: 1 mg Haloperidol (Haldol) 2 mg PO Q6 PRN PRN Reason: Agitation Last Admin: 03/13/18 15:25 Dose: 2 mg Heparin Sodium (Porcine) (Heparin) 5,000 units SC Q12 [facility] Last Admin: 03/14/18 11:07 Dose: Not Given Moxifloxacin HCl (Avelox Iv 400mg/250ml Ns) 400 mg in 250 mls @ 167 mls/hr IVPB Q24H [facility]; Protocol Last Admin: 03/15/18 13:42 Dose: 167 mls/hr Insulin Aspart (Novolog) 4 unit SC AC [facility] Last Admin: 03/16/18 09:08 Dose: 4 units Insulin Aspart (Novolog) 0 unit SC ACHS [facility] Last Admin: 03/16/18 07:38 Dose: Not Given Insulin Detemir (Levemir) 8 unit SC HS [facility] Last Admin: 03/15/18 21:48 Dose: Not Given Mirtazapine (Remeron) 15 mg PO HS [facility] Last Admin: 03/15/18 22:03 Dose: 15 mg Multivitamins (Hexavitamin) 1 tab PO DAILY [facility] Last Admin: 03/16/18 09:08 Dose: 1 tab Pantoprazole Sodium (Protonix Ec Tab) 40 mg PO DAILY [facility] Last Admin: 03/16/18 09:08 Dose: 40 mg Rosuvastatin Calcium (Crestor) 5 mg PO HS [facility] Last Admin: 03/15/18 22:03 Dose: 5 mg Tamsulosin HCl (Flomax) 0.4 mg PO DAILY [facility] Last Admin: 03/16/18 09:10 Dose: 0.4 mg Trazodone HCl (Desyrel) 50 mg PO HS [facility] Last Admin: 03/15/18 22:03 Dose: 50 mg - Labs Labs: 03/16/18 05:52 03/16/18 05:52 PT 11.5 SECONDS (9.7-12.2) 03/12/18 10:38 INR 1.1 03/12/18 10:38 APTT 35 SECONDS (21-34) H 03/12/18 10:38 Attending/Attestation - Attestation I have personally seen and examined this patient.: Yes I have fully participated in the care of the patient.: Yes I have reviewed all pertinent clinical information, including history, physical exam and plan: Yes Notes (Text): 03/16/18 10:24 I have seen and examined patient with GI fellow. No acute events overnight, he is seen resting in bed comfortably and denies abdominal pain, nausea, vomiting, fever/chills, or rectal bleeding. He had a normal formed brown bowel movement yesterday. Tolerating PO diet without difficulty. Review of vitals from today are normal. DM - labile Pneumonia CAD / CHF CKD Anemia HCV - Diet as tolerated - H/H stable without presence of overt bleeding, continue to monitor - Continue with PPI therapy - Patient would eventually benefit from repeat endoscopic evaluation given prior incomplete colonoscopies, should be arranged electively as outpatient. Will also discuss potential HCV therapy with patient at that time. No further planned GI intervention, will sign off case. Please reconsult as necessary, thank you.
--- NOTE | 2018-03-16 11:50 | CP.PCM.PN ---
Subjective - Date & Time of Evaluation Date of Evaluation: 03/16/18 Time of Evaluation: 08:00 - Subjective Subjective: cxr IMPROVING Objective - Vital Signs/Intake and Output Vital Signs (last 24 hours): Temp Pulse Resp BP Pulse Ox 97.8 F 70 20 144/88 98 03/16/18 08:21 03/16/18 08:21 03/16/18 08:21 03/16/18 08:21 03/16/18 08:21 Intake and Output: 03/16/18 03/16/18 06:59 18:59 Intake Total 800 Balance 800 - Medications Medications: Current Medications Acetaminophen (Tylenol 325mg Tab) 650 mg PO Q6 PRN PRN Reason: Pain, Mild (1-3) Last Admin: 03/15/18 16:06 Dose: 650 mg Amlodipine Besylate (Norvasc) 10 mg PO DAILY [facility] Last Admin: 03/16/18 09:07 Dose: 10 mg Aspirin (Ecotrin) 81 mg PO DAILY [facility] Last Admin: 03/14/18 11:06 Dose: Not Given Dextrose (Dextrose 50% Inj) 0 ml IV STAT PRN; Protocol PRN Reason: Hypoglycemia Protocol Last Admin: 03/14/18 06:37 Dose: 50 ml Dextrose (Glutose 15) 0 gm PO ONCE PRN; Protocol PRN Reason: Hypoglycemia Protocol Last Admin: 03/12/18 07:26 Dose: 15 gm Ferrous Sulfate (Feosol) 325 mg PO BID [facility] Last Admin: 03/16/18 09:08 Dose: 325 mg Gabapentin (Neurontin) 100 mg PO TID [facility] Last Admin: 03/16/18 09:08 Dose: 100 mg Glucagon (Glucagen Diagnostic Kit) 0 mg IM STAT PRN; Protocol PRN Reason: Hypoglycemia Protocol Haloperidol (Haldol) 1 mg PO BID [facility] Last Admin: 03/16/18 09:08 Dose: 1 mg Haloperidol (Haldol) 2 mg PO Q6 PRN PRN Reason: Agitation Last Admin: 03/13/18 15:25 Dose: 2 mg Heparin Sodium (Porcine) (Heparin) 5,000 units SC Q12 [facility] Last Admin: 03/14/18 11:07 Dose: Not Given Moxifloxacin HCl (Avelox Iv 400mg/250ml Ns) 400 mg in 250 mls @ 167 mls/hr IVPB Q24H [facility]; Protocol Last Admin: 03/15/18 13:42 Dose: 167 mls/hr Insulin Aspart (Novolog) 4 unit SC AC [facility] Last Admin: 03/16/18 09:08 Dose: 4 units Insulin Aspart (Novolog) 0 unit SC ACHS [facility] Last Admin: 03/16/18 07:38 Dose: Not Given Insulin Detemir (Levemir) 8 unit SC HS [facility] Last Admin: 03/15/18 21:48 Dose: Not Given Mirtazapine (Remeron) 15 mg PO HS [facility] Last Admin: 03/15/18 22:03 Dose: 15 mg Multivitamins (Hexavitamin) 1 tab PO DAILY [facility] Last Admin: 03/16/18 09:08 Dose: 1 tab Pantoprazole Sodium (Protonix Ec Tab) 40 mg PO DAILY [facility] Last Admin: 03/16/18 09:08 Dose: 40 mg Rosuvastatin Calcium (Crestor) 5 mg PO [facility] Last Admin: 03/15/18 22:03 Dose: 5 mg Tamsulosin HCl (Flomax) 0.4 mg PO DAILY [facility] Last Admin: 03/16/18 09:10 Dose: 0.4 mg Trazodone HCl (Desyrel) 50 mg PO [facility] Last Admin: 03/15/18 22:03 Dose: 50 mg - Labs Labs: 03/16/18 05:52 03/16/18 05:52 PT 11.5 SECONDS (9.7-12.2) 03/12/18 10:38 INR 1.1 03/12/18 10:38 APTT 35 SECONDS (21-34) H 03/12/18 10:38 - Constitutional Appears: Non-toxic, Cachectic, Chronically Ill - Head Exam Head Exam: NORMOCEPHALIC - Eye Exam Eye Exam: PERRL - ENT Exam ENT Exam: Mucous Membranes Dry - Neck Exam Neck Exam: absent: Lymphadenopathy - Respiratory Exam Respiratory Exam: Decreased Breath Sounds - Cardiovascular Exam Cardiovascular Exam: REGULAR RHYTHM - GI/Abdominal Exam GI & Abdominal Exam: Distended, Soft Assessment and Plan (1) Hypoglycemia Status: Acute (2) Pneumonia Status: Acute (3) Abdominal pain Status: Acute (4) Acidosis Status: Acute (5) Acute on chronic renal insufficiency Status: Acute
[2018-03-16] MEDS: Moxifloxacin IV 400mg/250ml NS 400 MG/250 ML BAG IVPB SCH (13:39)
--- NOTE | 2018-03-16 14:01 | PCM.PYCHPN ---
Psychiatric Progress Note - Psychiatric Progress Note Patient seen today, length of contact: 15 min Patient Chief Complaint: "I am alright" Medication Change: Yes Medical Record Reviewed: Yes Mental Status Examination - Cognitive Function Orientation: Person Memory: Impaired Attention: Poor Concentration: Poor Association: Loose Fund of Knowledge: Poor - Mood Mood: Anxious - Affect Affect: Constricted - Speech Speech: Appropriate - Formal Thought Process Formal Thought Process: Delusions, Paranoia, Loosening of associations - Suicidal Ideation Suicidal Ideation: No - Homicidal Ideation Homicidal Ideation: No Goal/Treatment Plan - Goal/Treatment Plan Need for Continued Stay: Discharge may exacerbated symptoms, Severe functional impairment Progress Toward Problem(s) and Goals/Treatment Plan: Pt doesnt has any capacity to make any decision.
--- NOTE | 2018-03-16 19:03 | PN ---
DATE: 03/16/2018 ENDOCRINOLOGY FOLLOWUP NOTE LOCATION: In room 564. SUBJECTIVE: This is a 72-year-old male with recent uncontrolled type 2 insulin-requiring diabetes, currently receiving IV antibiotics for acute pneumonitis and is now being followed closely for metabolic management. His glycemic levels once again are fluctuating and today's glucose values have dropped to 44 and 56 mg/dL. LABORATORY DATA: His latest chemistry showed a BUN of 34, sodium 138, potassium 4.7, chloride 107, CO2 of 24, glucose 124, and creatinine 1.8. ASSESSMENT AND PLAN: So, we will once again modify his basal and bolus insulin regimen and lower the Humalog to 3 units subcutaneously t.i.d. before meals as ordered. We will also lower the Levemir to 6 units subcutaneously at bedtime daily to start tonight. We will titrate incrementally as indicated to optimize metabolic control. We will follow. Myrna Sheffield MD
[2018-03-16] MEDS ORDERED: Insulin Detemir 100 units/ml Vial (Levemir) SC SCH (22:00)
[2018-03-17 08:17] LABS: BASO # 0.1 K/uL (0.0-0.2); BASO % 1.1 % (0.0-2.0); EOS # 0.1 K/uL (0.0-0.7); EOS % 1.8 % (0.0-4.0); HEMOGLOBIN 9.1 g/dL (12.0-18.0); LYMPH # 0.8 K/uL (1.0-4.3); LYMPH % 14.8 % (20.0-40.0); MEAN CELL VOLUME 85.4 fL (80.0-94.0); MEAN CORPUSCULAR HEMOGLOBIN 28.2 pg (27.0-31.0); MEAN CORPUSCULAR HGB CONC 32.9 g/dL (33.0-37.0); MEAN PLATELET VOLUME 7.9 fL (7.2-11.7); MONO # 0.5 K/uL (0.0-0.8); MONO % 9.1 % (0.0-10.0); NEUT # 4.1 K/uL (1.8-7.0); NEUT % 73.2 % (50.0-75.0); NRBC % 0.1 % (0.0-2.0); RBC 3.24 Mil/uL (4.40-5.90); RED CELL DISTRIBUTION WIDTH 17.3 % (11.5-14.5); WHITE BLOOD COUNT 5.7 K/uL (4.8-10.8)
[2018-03-17 08:38] LABS: ALB/GLOB RATIO 0.9 (1.0-2.1); ALBUMIN 2.7 g/dL (3.5-5.0); ALT/SGPT 96 U/L (21-72); AST/SGOT 63 U/L (17-59); BLOOD UREA NITROGEN 28 mg/dL (9-20); CALCIUM 8.5 mg/dl (8.6-10.4); GFR NON-AFRICAN AMERICAN 50
[2018-03-17] MEDS: (Novolog) Insulin Aspart, Recombinant 100 u/ml 10 ml vial SC SCH ×6 (09:11→17:48)
[2018-03-17] MEDS: Pantoprazole 40 mg EC Tab PO SCH (09:43)
[2018-03-17] MEDS: Multiple Vitamins Tab PO SCH (09:43)
[2018-03-17 15:44] VITALS: BP 120/73; PULSE 65; RESP 18; TEMP 97.6
--- NOTE | 2018-03-17 19:58 | PN ---
DATE: 03/17/2018 ENDO FOLLOWUP NOTE LOCATION: In room 552. SUBJECTIVE: This is a 72-year-old male with recent uncontrolled type 2 insulin-requiring diabetes, who continues to develop extremes of glycemic fluctuations concomitant with the variability of his oral intake as noted and is now being followed closely for metabolic management. His glucose levels overnight have ranged from 84 to 196 and 315 mg/dL as noted. His glucose levels today were actually 344 at lunch times as noted. The chemistries show a BUN of 28, sodium 142, potassium 4.9, chloride 111, CO2 23, glucose 50, and creatinine 1.4. So at this time, we will modify once again his basal and bolus insulin regimens and lower the basal insulin to Levemir given as 4 units subcu at bedtime daily to start tonight. We will continue the very low dose prandial insulin, which was modified last night to NovoLog given as 3 units t.i.d. before meals as ordered. We will obtain serial chemistries and supplement accordingly as needed. We will follow. Myrna Sheffield MD
[2018-03-17] MEDS ORDERED: Insulin Detemir 100 units/ml Vial (Levemir) SC SCH (22:00)
== END 2018-03-17 20:10 | disposition home or self-care (01) | DRG 637 ==
LOC: C.ER 17:04 → C.9E 19:49 → C.5S 22:51 → C.9I 03-09 01:17 → C.5S 03-12 18:24
PROVIDERS: ADMIT Family Medicine; ATTEND Family Medicine
DX: E11.649 Type 2 diabetes mellitus with hypoglycemia without coma (principal); J18.9 Pneumonia, unspecified organism; I13.0 Hypertensive heart and chronic kidney disease with heart failure and stage 1 through stage 4 chronic kidney disease, or unspecified chronic kidney disease; F02.81 Dementia in other diseases classified elsewhere, unspecified severity, with behavioral disturbance; E11.22 Type 2 diabetes mellitus with diabetic chronic kidney disease; E11.21 Type 2 diabetes mellitus with diabetic nephropathy; E11.42 Type 2 diabetes mellitus with diabetic polyneuropathy; D64.9 Anemia, unspecified; B19.20 Unspecified viral hepatitis C without hepatic coma; K86.1 Other chronic pancreatitis; E11.10 Type 2 diabetes mellitus with ketoacidosis without coma; E11.51 Type 2 diabetes mellitus with diabetic peripheral angiopathy without gangrene; I25.10 Atherosclerotic heart disease of native coronary artery without angina pectoris; G30.9 Alzheimer's disease, unspecified; I50.9 Heart failure, unspecified; N18.9 Chronic kidney disease, unspecified; K20.9 Esophagitis, unspecified; N40.0 Benign prostatic hyperplasia without lower urinary tract symptoms; E78.5 Hyperlipidemia, unspecified; E78.00 Pure hypercholesterolemia, unspecified; E11.319 Type 2 diabetes mellitus with unspecified diabetic retinopathy without macular edema; H54.62 Unqualified visual loss, left eye, normal vision right eye; Z96.641 Presence of right artificial hip joint; Z79.4 Long term (current) use of insulin; Z86.73 Personal history of transient ischemic attack (TIA), and cerebral infarction without residual deficits; Z98.41 Cataract extraction status, right eye; Z87.891 Personal history of nicotine dependence; Z87.01 Personal history of pneumonia (recurrent); Z87.11 Personal history of peptic ulcer disease

== ENCOUNTER 2018-03-18 23:42 | Inpatient (IN) | payer MEDICARE ==
[2018-03-18 23:42] VITALS: BMI 21.6
--- NOTE | 2018-03-19 00:07 | C.PDOC ---
History Of Present Illness 72 y/o male brought in from home for evaluation of fever, chills, and "not feeling well" today. Of note patient was discharged home yesterday from admission for pneumonia. As per , patient with increased dementia, states that he was screaming the whole day and night, and seemed very agitated and combative. Otherwise patient denies any vomiting, diarrhea, or other associated symptoms. Time Seen by Provider: 03/19/18 00:07 Chief Complaint (Nursing): Fever History Per: Patient History/Exam Limitations: no limitations Onset/Duration Of Symptoms: Days (x1) Current Symptoms Are (Timing): Still Present Additional History Per: Family Past Medical History Reviewed: Historical Data, Nursing Documentation, Vital Signs Vital Signs: Last Vital Signs Temp 99.4 F 03/18/18 23:48 Pulse 103 H 03/18/18 23:48 Resp 20 03/18/18 23:48 BP 94/61 L 03/18/18 23:48 Pulse Ox 95 03/18/18 23:48 - Medical History PMH: Anemia, Arthritis, CHF, Dementia, Diabetes, Gastrointestinal Ulcer, HTN, Hypercholesterolemia, Pancreatitis, Peripheral Edema, Pneumonia, Chronic Kidney Disease, Seizures (pt denies) Denies: Deep Vein Thrombosis Surgical History: Endoscopy Denies: Pacemaker - [facility] FLORESITA ING HRN REP-GRFT NOS (05/04/14) INSERTION OF INFUSION DEV INTO R FEMOR VEIN, PERC APPROACH (09/15/17) INSERTION OF INFUSION DEV INTO SUP VENA CAVA, PERC APPROACH (01/29/18) INSERTION OF INFUSION DEVICE INTO UPPER VEIN, PERC APPROACH (09/25/17) INTRODUCE OF OTH THERAP SUBST INTO RESP TRACT, VIA OPENING (08/22/17) ULTRASONOGRAPHY OF SUPERIOR VENA CAVA, GUIDANCE (12/16/17) Family History: States: No Known Family Hx - Social History Hx Tobacco Use: No Hx Alcohol Use: No Hx Substance Use: No - Immunization History Hx Tetanus Toxoid Vaccination: Yes Hx Influenza Vaccination: Yes Hx Pneumococcal Vaccination: Yes Review Of Systems Constitutional: Positive for: Fever, Chills, Malaise Cardiovascular: Negative for: Chest Pain Respiratory: Negative for: Shortness of Breath Gastrointestinal: Negative for: Vomiting, Abdominal Pain, Diarrhea Genitourinary: Negative for: Dysuria, Hematuria Neurological: Negative for: Weakness, Numbness, Change in Speech, Altered Mental Status, Dizziness Psych: Positive for: Other (Increased agitation as per ) Physical Exam - Physical Exam Appears: Non-toxic, Other (moderate distress) Skin: Warm, Dry Head: Normacephalic Eye(s): bilateral: Normal Inspection Oral Mucosa: Dry Tongue: Other (dry) Throat: No Erythema Neck: Trachea Midline, Supple Chest: Symmetrical Cardiovascular: Rhythm Regular Respiratory: No Accessory Muscle Use, No Rales, Rhonchi (bilaterally, R > L), No Wheezing Gastrointestinal/Abdominal: Bowel Sounds (good), Soft, No Tenderness, No Guarding Back: Normal Inspection Extremity: Pedal Edema (bilateral), No Calf Tenderness Extremity: Bilateral: Atraumatic, Normal Color And Temperature Pulses: Left Dorsalis Pedis: Normal, Right Dorsalis Pedis: Normal Neurological/Psych: Oriented x3, Slow To Respond With Command Gait: Unable To Assess ED Course And Treatment - Laboratory Results Result Diagrams: 03/19/18 01:03 03/19/18 02:14 ECG: Interpreted By Me, Viewed By Me ECG Rhythm: Sinus Rhythm (84), Nonspecific Changes O2 Sat by Pulse Oximetry: 95 (RA) Pulse Ox Interpretation: Normal - Radiology CXR: Interpreted by Me, Viewed By Me CXR Interpretation: Yes: Infiltrates (rll), Other (wosened from 03/15/18). No: Fracture, Pnemothorax Progress Note: Blood work and urine sent to the lab for analysis. Blood cultures sent. CXR and EKG ordered and reviewed. placed a left EJ without any difficulty. repeating blood work Critical Care Time - Critical Care Note Total Time (in mins): 30 Documented critical care: time excludes all time spent performing seperately billable procedures. Disposition Discussed With : Zohaib Morgan Comment: accepted the p ton his service and took over the care at 3:21 AM Doctor Will See Patient In The: Hospital Counseled Patient/Family Regarding: Studies Performed, Diagnosis - Disposition Disposition: HOSPITALIZED Disposition Time: 00:07 Condition: GUARDED Forms: [facility] (Azerbaijani) - POA Present On Arrival: Poor Glycemic Control - Clinical Impression Clinical Impression: Fever, Hyperglycemia, Pneumonia, Hyperkalemia, Renal insufficiency - Scribe Statement The provider has reviewed the documentation as recorded by the Vivek San Provider Attestation: All medical record entries made by the La Nenaibmegan were at my direction and personall y dictated by me. I have reviewed the chart and agree that the record accurately reflects my personal performance of the history, physical exam, medical decision making, and the department course for this patient. I have also personally directed, reviewed, and agree with the discharge instructions and disposition. Decision To Admit - Pt Status Changed To: Hospital Disposition Of: Inpatient - Admit Certification Admit to Inpatient:: After my assessment, the patient will require hospitalizati on for at least two midnights. This is because of the severity of symptoms shown, intensity of services needed, and/or the medical risk in this patient being treated as an outpatient. - InPatient: Physician Admission Certification: I certify that this patient requires 2 or more midnights of care for the following reason:: After my assessment, the patient will require hospitalization for at least two midnights. This is because of the severity of symptoms shown, intensity of services needed, and/or the medical risk in this patient being treated as an outpatient. - . Bed Request Type: Telemetry Admitting Physician: Zohaib Morgan Patient Diagnosis: Fever, Hyperglycemia, Pneumonia, Hyperkalemia, Renal insufficiency
[2018-03-19 01:16] LABS: BASO # 0.1 K/uL (0.0-0.2); BASO % 0.7 % (0.0-2.0); EOS % 0.6 % (0.0-4.0); HEMOGLOBIN 10.5 g/dL (12.0-18.0); LYMPH # 0.9 K/uL (1.0-4.3); LYMPH % 11.2 % (20.0-40.0); MEAN CORPUSCULAR HEMOGLOBIN 27.7 pg (27.0-31.0); MEAN CORPUSCULAR HGB CONC 31.2 g/dL (33.0-37.0); MEAN PLATELET VOLUME 8.2 fL (7.2-11.7); MONO # 0.4 K/uL (0.0-0.8); MONO % 5.5 % (0.0-10.0); NEUT # 6.3 K/uL (1.8-7.0); NRBC % 0.1 % (0.0-2.0); RBC 3.79 Mil/uL (4.40-5.90); RED CELL DISTRIBUTION WIDTH 18.7 % (11.5-14.5); WHITE BLOOD COUNT 7.7 K/uL (4.8-10.8)
[2018-03-19 01:46] LABS: ALBUMIN 3.5 g/dL (3.5-5.0); CALCIUM 9.1 mg/dl (8.6-10.4)
[2018-03-19] MEDS ORDERED: Sodium Chloride 0.9% 1,000 ML ONE (02:01)
[2018-03-19] MEDS ORDERED: Sodium Chloride 0.9% 1,000 ML IV ONE (02:04)
[2018-03-19 02:16] LABS: VENOUS BLOOD GAS BASE EXCESS -7.2 mmol/L (0.0-2.0); VENOUS BLOOD GAS PCO2 44 mmHg (40-60); VENOUS BLOOD GAS PO2 43 mm/Hg (30-55); VENOUS BLOOD PH 7.26 (7.32-7.43)
[2018-03-19 02:32] LABS: SQUAMOUS EPITHIAL < 1 /hpf (0-5); URINE BACTERIA RARE (<OCC); URINE BILIRUBIN NEGATIVE (NEGATIVE); URINE BLOOD NEGATIVE (NEGATIVE); URINE CLARITY Clear (Clear); URINE COLOR Yellow (YELLOW); URINE GLUCOSE (UA) 1+ mg/dL (Normal); URINE LEUKOCYTE ESTERASE NEG Leu/uL (Negative); URINE PROTEIN 2+ mg/dL (NEGATIVE); URINE UROBILINOGEN NORMAL mg/dL (0.2-1.0)
[2018-03-19 02:39] LABS: INR 1.1; PROTHROMBIN TIME 11.8 SECONDS (9.7-12.2)
[2018-03-19] MEDS ORDERED: (Novolin R) Insulin Human Regular 100 units/ml vial IVP ONE (02:49)
[2018-03-19] MEDS ORDERED: Dextrose 50% SYRINGE Inj (50 ml) IV STA (02:49)
[2018-03-19] MEDS ORDERED: Sod Polystyrene Sulf 15 gm/60 ml Susp PO ONE ×2 (02:49→09:09)
[2018-03-19 02:56] LABS: ALB/GLOB RATIO 0.9 (1.0-2.1); ALBUMIN 2.7 g/dL (3.5-5.0); CALCIUM 8.6 mg/dl (8.6-10.4)
[2018-03-19] MEDS ORDERED: Sod Polystyrene Sulf 15 gm/60 ml Susp ONE (02:58)
[2018-03-19] MEDS ORDERED: (Novolin R) Insulin Human Regular 100 units/ml vial ONE (02:59)
[2018-03-19] MEDS ORDERED: Dextrose 50% SYRINGE Inj (50 ml) ONE (03:00)
[2018-03-19] MEDS: Albuterol-Ipratrop 3 mg / 0.5 (3 ml) UD IH SCH ×3 (03:05→03:31)
[2018-03-19] MEDS ORDERED: Piperacillin/Tazobact 3.375 gm 100 ML IVPB STA (03:19)
[2018-03-19] MEDS ORDERED: Albuterol-Ipratrop 3 mg / 0.5 (3 ml) UD ONE (03:24)
[2018-03-19] MEDS ORDERED: Piperacillin/Tazobact 3.375 gm 100 ML IVPB ONE (03:25)
[2018-03-19] MEDS ORDERED: Vancomycin 1 GM 1 GM/250 ML BAG IVPB SCH (03:30)
[2018-03-19] MEDS ORDERED: Vancomycin 1 gm/NS 200 ml 1 GM/200 ML BAG IVPB STA (04:02)
--- NOTE | 2018-03-19 08:17 | RAD ---
Date of service: 03/19/2018 PROCEDURE: CHEST RADIOGRAPH, 1 VIEW HISTORY: SOB COMPARISON: 03/15/2018 FINDINGS: LUNGS: Current lung volumes much more shallow than before-impeding optimal comparison.. There is interval increased prominence to each hilum right hilum more than left. An interval increased right perihilar infiltrate is suspect. PLEURA: No pneumothorax or pleural fluid seen. CARDIOVASCULAR: There is presence of aortic atherosclerotic calcification on x-ray. Minimal cardiomegaly Crowded pulmonary vasculature. Concomitant minimal pulmonary venous congestion not excluded. OSSEOUS STRUCTURES: Bilateral shoulder arthrosis apparent left humeral posttraumatic deformity-correlate clinically-chronicity favored VISUALIZED UPPER ABDOMEN: Midline hiatal hernia suggested OTHER FINDINGS: None. IMPRESSION: Current lung volumes much more shallow than before-impeding optimal comparison.. There is interval increased prominence to each hilum right hilum more than left. An interval increased right perihilar infiltrate is suspect. Other findings as above.
[2018-03-19] MEDS: Pantoprazole 40 mg EC Tab PO SCH (11:16)
[2018-03-19] MEDS: Multiple Vitamins Tab PO SCH (11:16)
--- NOTE | 2018-03-19 11:25 | CP.PCM.CON ---
History of Present Illness - History of Present Illness History of Present Illness: Nephrology Consultation Note: Assessment: stable Acute Kidney Injury (N17.9) HAGMA with ketoacidosis and hyperkalemia Pneumonia, AMS with delirium Uncontrolled diabetes mellitus with hypoglycemia and hyperglycemia Diabetic chronic Kidney Disease (E11.22) Hypertensive Chronic Kidney Disease (I12.9) Chronic Kidney Disease (N18.3) Stage 3 with ? mg proteinuria (R80.9) likely due to DM Anemia (D64.9), Vit D def with Secondary Hyperparathyroidism (E21.1), HTN (I12.9) BPH, diabetic neuropathy, chronic pancreatitis gastric ulcer, hx of etoh and smoking in past Plan No acute need for renal replacement therapy at this time. Hypertension control with meds as ordered. Patient not on ACEI/ARB due to KHALIDA tendency and hyperkalemia. Monitor Input/Output, daily weights and renal function with basic metabolic panel at d/c please add [place] 8.4 gram/day at home added sodium bicarbonate 650 mg 2 times a day continue with iron multivitamin supplements. PRBC as needed. will add TRINIDAD if Hb <10 continue with Flomax continue with IVF, will d/c soon once KHALIDA better low K diet. kayexylate as needed work up as ordered Dose meds/antibiotics for reduced GFR. Avoid fleets enema/magnesium based laxatives. Avoid nephrotoxins/NSAIDs/ iodinated contrast (unless needed emergently) Glycemic control Further work up/management as per primary team Thanks for allowing me to participate in care of your patient. Will follow patient with you. Please call if any Qs. had d/w team Dr Juan Diego [facility] Office: [phone] CC: want to go home reason for consult: KHALIDA, CKD HPI:Pt is a 72 M with hx of uncontrolled diabetes Mellitus (30 years) with retinopathy, hypertension (15-20 years), CKD 3, s/p Right total hip replacement, gout, chronic pancreatitis, gastric ulcer with hiatal hernia with multiple admissions to hospital with hypo and hyperglycemia/DKA, recently for PNA, AMS with delirium ? dementia came back with behavioral changes. seen by psych Renal consult for kidney disease management pt has uncontrolled DM with sugars ranging from 20 to 500+ he appears confused and unable to provide much significant reliable hx. he just wants to go home ROS: denies CP/SOB. denies nausea and abdomen pain. he appears confused and unable to provide much significant reliable hx. he just wants to go home Physical Examination: General Appearance: in no acute respiratory distress, co-operative but confused Vitals reviewed and noted as below Head; Atraumatic, normocephalic ENT: no ulcers no thrush. Tongue is midline. Oropharynx: no rash or ulcers. EYES: Pupils are equal, round and reactive to light accommodation. Eye muscles and extraocular movement intact. Sclera is anicteric. Neck; supple no lymphadenopathy, no thyromegaly or bruit Lungs: Normal respiratory rate/effort. Breath sounds bilateral equal and clear Heart: Normal rate. s1s2 normal. No rub or gallop. SM at LSB+. loud S2 Extremities: 1+ edema. No varicose veins Neurological: Patient is AO x 3 no focal deficit but confused appearing Skin: Warm and dry. Normal turgor. No rash. Palpitation: Normal elasticity for age Abdomen: Abdomen is soft. Bowel sounds +. There is no abdominal tenderness, no guarding/rigidity no organomegaly Psych: normal affect/mood and good insight MSK: no joint tenderness or swelling. Digits and nails normal, no deformity : kidney or bladder not palpable Labs/imaging reviewed. Past medical history, past surgical history, family history, social history, allergy reviewed and noted as below Family hx: no hx of CKD. Rest non-contributory Work up: 06/11/2017: SPEP neg [place]/lambda ratio normal although faint free lambda in JANI renal sono 7 mm cyst normal LVEF on echo Past Patient History - Infectious Disease Hx of Infectious Diseases: None - Tetanus Immunizations Tetanus Immunization: Unknown - Past Medical History & Family History Past Medical History?: Yes - Past Social History Smoking Status: Former Smoker - CARDIAC Hx Congestive Heart Failure: Yes Hx Hypercholesterolemia: Yes Hx Hypertension: Yes Hx Pacemaker: No Hx Peripheral Edema: Yes - PULMONARY Hx Pneumonia: Yes - NEUROLOGICAL Hx Dementia: Yes Hx Seizures: Yes (pt denies) - HEENT Hx HEENT Problems: Yes (LEFT EYE BLIND) Hx Cataracts: Yes (BILATERAL) Other/Comment: rt eye cataract sx - RENAL Hx Chronic Kidney Disease: Yes - ENDOCRINE/METABOLIC Hx Diabetes Mellitus Type 2: Yes - HEMATOLOGICAL/ONCOLOGICAL Hx Anemia: Yes - INTEGUMENTARY Hx Dermatological Problems: Yes Other/Comment: 03-03-18 HEALING SACRAL PRESSURE ULCER.SCARRED AREA MORE TO LEFT. - MUSCULOSKELETAL/RHEUMATOLOGICAL Hx Arthritis: Yes Hx Falls: Yes - GASTROINTESTINAL Hx Pancreatitis: Yes - GENITOURINARY/GYNECOLOGICAL Hx Genitourinary Disorders: Yes Hx Prostate Problems: Yes (R TURP for BPH) - PSYCHIATRIC Hx Substance Use: No - SURGICAL HISTORY Hx Surgeries: Yes Hx Cataract Extraction: Yes Hx Vascular Access Device: Yes Other/Comment: hemorrhoidectomy - ANESTHESIA Hx Anesthesia: Yes Hx Anesthesia Reactions: No Hx Malignant Hyperthermia: No Meds Allergies/Adverse Reactions: Allergies Allergy/AdvReac Type Severity Reaction Status Date / Time No Known Allergies Allergy Verified 03/08/18 17:18 - Medications Medications: Current Medications Amlodipine Besylate (Norvasc) 10 mg PO DAILY [facility] Last Admin: 03/19/18 11:16 Dose: 10 mg Aspirin (Ecotrin) 81 mg PO DAILY [facility] Last Admin: 03/19/18 11:16 Dose: 81 mg Ferrous Sulfate (Feosol) 325 mg PO BID [facility] Last Admin: 03/19/18 11:15 Dose: 325 mg Haloperidol (Haldol) 1 mg PO BID [facility] Sodium Chloride (Sodium Chloride 0.45%) 1,000 mls @ 100 mls/hr IV .Q10H [facility] Piperacillin Sod/Tazobactam (Sod 3.375 gm/ Sodium Chloride) 100 mls @ 200 mls/hr IVPB Q8H [facility]; Protocol Insulin Aspart (Novolog) 3 unit SC AC [place] Insulin Aspart (Novolog) 0 unit SC ACHS [facility] Insulin Aspart (Novolog) 3 unit SC AC [place] Insulin Detemir (Levemir) 6 unit SC HS [facility] Insulin Detemir (Levemir) 6 unit SC HS [facility] Mirtazapine (Remeron) 15 mg PO HS [facility] Multivitamins (Hexavitamin) 1 tab PO DAILY [facility] Last Admin: 03/19/18 11:16 Dose: 1 tab Pantoprazole Sodium (Protonix Ec Tab) 40 mg PO DAILY [facility] Last Admin: 03/19/18 11:16 Dose: 40 mg Rosuvastatin Calcium (Crestor) 5 mg PO HS [facility] Sodium Bicarbonate (Sodium Bicarbonate Tab) 650 mg PO BID [facility] Tamsulosin HCl (Flomax) 0.4 mg PO DAILY [facility] Trazodone HCl (Desyrel) 50 mg PO HS [facility] Results - Vital Signs Recent Vital Signs: Last Vital Signs Temp 98 F 03/19/18 05:11 Pulse 95 H 03/19/18 05:54 Resp 20 03/19/18 05:11 BP 101/63 03/19/18 05:11 Pulse Ox 95 03/19/18 05:11 - Labs Result Diagrams: 03/19/18 01:03 03/19/18 02:14 Labs: Laboratory Results - last 24 hr 03/18/18 03/19/18 03/19/18 23:59 01:03 01:03 WBC 7.7 RBC 3.79 L Hgb 10.5 L Hct 33.7 L MCV 89.0 D MCH 27.7 MCHC 31.2 L RDW 18.7 H Plt Count 343 MPV 8.2 Neut % (Auto) 82.0 H Lymph % (Auto) 11.2 L [place] % (Auto) 5.5 Eos % (Auto) 0.6 Baso % (Auto) 0.7 Neut # (Auto) 6.3 Lymph # (Auto) 0.9 L [place] # (Auto) 0.4 Eos # (Auto) 0.0 Baso # (Auto) 0.1 PT INR APTT pO2 VBG pH VBG pCO2 VBG HCO3 VBG Total CO2 VBG O2 Sat (Calc) VBG Base Excess VBG Potassium Glucose Lactate Sodium 140 Potassium 6.2 H* D Chloride 111 H Carbon Dioxide 18 L Anion Gap 17 BUN 38 H Creatinine 2.3 H Est GFR ( Amer) 34 Est GFR (Non-Af Amer) 28 POC Glucose (mg/dL) 260 H Random Glucose 282 H Calcium 9.1 Magnesium 1.8 Total Bilirubin 0.8 AST 36 ALT 82 H Alkaline Phosphatase 321 H NT-Pro-B Natriuret Pep 940 H Total Protein 7.0 Albumin 3.5 D Globulin 3.5 Albumin/Globulin Ratio 1.0 Venous Blood Potassium Urine Color Urine Clarity Urine pH Ur Specific [place] Urine Protein Urine Glucose (UA) Urine Ketones Urine Blood Urine Nitrate Urine Bilirubin Urine Urobilinogen Ur Leukocyte Esterase Urine WBC (Auto) Urine RBC (Auto) Ur Squamous Epith Cells Urine Bacteria Hyaline Casts B-Hydroxybutyrate 0.25 03/19/18 03/19/18 03/19/18 02:10 02:14 02:14 WBC RBC Hgb Hct MCV MCH MCHC RDW Plt Count MPV Neut % (Auto) Lymph % (Auto) [place] % (Auto) Eos % (Auto) Baso % (Auto) Neut # (Auto) Lymph # (Auto) [place] # (Auto) Eos # (Auto) Baso # (Auto) PT 11.8 INR 1.1 APTT 33 pO2 43 VBG pH 7.26 L VBG pCO2 44 VBG HCO3 18.6 VBG Total CO2 21.1 L VBG O2 Sat (Calc) 78.8 H VBG Base Excess -7.2 L VBG Potassium 5.8 H Glucose 294 H Lactate 0.8 Sodium 136.0 142 Potassium 5.7 H Chloride 112.0 H 114 H Carbon Dioxide 19 L Anion Gap 15 BUN 36 H Creatinine 2.2 H Est GFR ( Amer) 36 Est GFR (Non-Af Amer) 30 POC Glucose (mg/dL) Random Glucose 281 H Calcium 8.6 Magnesium 1.7 Total Bilirubin 0.5 AST 18 ALT 76 H Alkaline Phosphatase 270 H NT-Pro-B Natriuret Pep 753 Total Protein 5.7 L Albumin 2.7 L D Globulin 3.0 Albumin/Globulin Ratio 0.9 L Venous Blood Potassium 5.8 H Urine Color Urine Clarity Urine pH Ur Specific [place] Urine Protein Urine Glucose (UA) Urine Ketones Urine Blood Urine Nitrate Urine Bilirubin Urine Urobilinogen Ur Leukocyte Esterase Urine WBC (Auto) Urine RBC (Auto) Ur Squamous Epith Cells Urine Bacteria Hyaline Casts B-Hydroxybutyrate 0.34 H 03/19/18 03/19/18 02:16 06:10 WBC RBC Hgb Hct MCV MCH MCHC RDW Plt Count MPV Neut % (Auto) Lymph % (Auto) [place] % (Auto) Eos % (Auto) Baso % (Auto) Neut # (Auto) Lymph # (Auto) [place] # (Auto) Eos # (Auto) Baso # (Auto) PT INR APTT pO2 VBG pH VBG pCO2 VBG HCO3 VBG Total CO2 VBG O2 Sat (Calc) VBG Base Excess VBG Potassium Glucose Lactate Sodium Potassium Chloride Carbon Dioxide Anion Gap BUN Creatinine Est GFR ( Amer) Est GFR (Non-Af Amer) POC Glucose (mg/dL) 183 H Random Glucose Calcium Magnesium Total Bilirubin AST ALT Alkaline Phosphatase NT-Pro-B Natriuret Pep Total Protein Albumin Globulin Albumin/Globulin Ratio Venous Blood Potassium Urine Color Yellow Urine Clarity Clear Urine pH 5.0 Ur Specific [place] 1.018 Urine Protein 2+ H Urine Glucose (UA) 1+ H Urine Ketones Negative Urine Blood Negative Urine Nitrate Negative Urine Bilirubin Negative Urine Urobilinogen Normal Ur Leukocyte Esterase Neg Urine WBC (Auto) 1 Urine RBC (Auto) < 1 Ur Squamous Epith Cells < 1 Urine Bacteria Rare Hyaline Casts 6-10 H B-Hydroxybutyrate
[2018-03-19] MEDS: Sodium Chloride 0.45% 1,000 ML IV SCH ×3 (11:28→18:16)
[2018-03-19] MEDS: (Novolog) Insulin Aspart, Recombinant 100 u/ml 10 ml vial SC SCH ×8 (12:09→22:06)
[2018-03-19] MEDS: Piperacillin/Tazobact 3.375 GM in Sodium Chloride 100 ML IVPB SCH ×2 (12:09→20:11)
--- NOTE | 2018-03-19 16:26 | HP ---
DATE OF EXAM: 03/19/2018 HISTORY OF PRESENT ILLNESS: I know the patient for many years and he has been in and out of the hospital for more than 7 or 8 times in the past six months. He is a very noncompliant young man, who is 72, -[place], who has got a little bit of dementia, whose is supposed to take care at home. She is having a very hard time, I do not think she can any more. The last two times he was in the hospital, I discussed putting him in a shelter for placement and she did not want to do that. He does not want to do that, but I do not think she can take care of him at home anymore. He was just discharged from the hospital the other day for pneumonia, and he is back again. He is a 72-year-old -[place] man, brought in for fever and chills. Not sure if he is taking any antibiotics or any other medications from home. He had pneumonia few days ago and he improved, and now he is back again. The said, he was screaming the whole day and night. He is very agitated and combative. PAST MEDICAL HISTORY: He has got a big medical history. He has got anemia; arthritis; CHF; dementia; diabetes; gastrointestinal ulcers; hypertension, high cholesterol; pancreatitis; peripheral edema; multiple pneumonias, I think he still has pneumonia at this time; chronic kidney dieses; seizures; deep vein thrombosis, he had endoscopy. He has had bilateral inguinal hernia repair. He has had femoral veins vena cava issues. FAMILY HISTORY: He has diabetes in the family. SOCIAL HISTORY: No smoking, no drinking, no drugs. REVIEW OF SYSTEMS: He has had fever. He has had chills. He was very tired. No chest pain. No visual or hearing changes. No shortness of breath. No cough. No abdominal pain, nausea, vomiting, constipation, or diarrhea. No problems urinating. He is weak, although he denies that he is weak, I have known him for a while. No changes in mentation at this time, but he is very forgetful and he is in and out of it mentally. He is not screaming at this time, but the says he does it all time. He has been agitated. PHYSICAL EXAMINATION VITAL SIGNS: He has a 99.4 temp, 103 pulse, 20 respiratory rate, 94/61 blood pressure, 95% O2 sat. GENERAL: He is a little bit toxic, in moderate distress. SKIN: Warm and dry. HEENT: Extraocular muscles are intact. Pupils are reactive to light. Throat is dry. Head is atraumatic, normocephalic. Throat has no erythema. NECK: Supple. HEART: Regular rate. LUNGS: Decreased breath sounds bilaterally. Poor inspiration. No wheezes. If we ask him to cough, he has some congestion, right side greater than left, could be part of old pneumonia. ABDOMEN: Soft, nontender. Positive bowel sounds. EXTREMITIES: Have no edema. NEUROLOGIC: He is alert and oriented x1, but he can reorient and then he understands. Does not want to walk at this time. LABORATORY DATA: He had lot of tests done. He has 7.7 white count, 10.5 hemoglobin, 33.7 hematocrit with 343 platelets. INR is 1.1. Glucose is 294, lactate was 0.8. He has 140 sodium; potassium is 6.2, came down to 5.7, I gave him some more Kayexalate; BUN is 36; creatinine is 2.2; GFR is 30. Sugar is 183. I will call on Renal for his kidney injury. Calcium is 8.6, magnesium 1.7, total bilirubin is 0.5. AST is 18, ALT is 76, alk phos 270, total protein is When he came in, his ALT was 82, alk phos 321, and BMP was 940. Total protein was Urine was clean. Toxicology showed beta hydroxybutyric was 0.34. His chest x-ray showed, now that it is back, increased right perihilar infiltrate. Lungs are getting worse after being home for 48 hours. IMPRESSION AND PLAN: He will consult with Infectious Disease, Endocrinology, and Pulmonary. I am going to call in social science professor and case management. I really believe he needs to be in a placement, hopefully in a long-term care. He will be on Zosyn, IV fluids, medicines, physical therapy, and hopefully he will improve. We can get him to a facility that can take care of him and he will not be coming back and forth to the hospital anymore. I do not think the can take care of him anymore at their advanced age. Zohaib Morgan DO [facility] # [id number] MTDGeoffrey
--- NOTE | 2018-03-19 20:18 | CP.PCM.CON ---
History of Present Illness - History of Present Illness History of Present Illness: 72M with PMH of uncontrolled diabetes with multiple admissions for DKA was recently admitted for pneumonia readmitted with AMS infiltrates and worsening renal function PMH: HTN, DM, HLD, CHF, CVA, anemia, chronic pancreatitis PSH: Turp, right hip replacement ALL: NKDA Social: former smoker quit in 1989, no ETOH or drugs - Medical History PMH: Anemia, Arthritis, CHF, Diabetes, Gastrointestinal Ulcer, HTN, Hypercholesterolemia, Pancreatitis, Peripheral Edema, Pneumonia, Chronic Kidney Disease Denies: Deep Vein Thrombosis Comment Only: Seizures (pt denies) Surgical History: Endoscopy Denies: Pacemaker - [facility] Procedures FLORESITA ING HRN REP-GRFT NOS (05/04/14) INSERTION OF INFUSION DEV INTO R FEMOR VEIN, PERC APPROACH (09/15/17) INSERTION OF INFUSION DEV INTO SUP VENA CAVA, PERC APPROACH (01/29/18) INSERTION OF INFUSION DEVICE INTO UPPER VEIN, PERC APPROACH (09/25/17) INTRODUCE OF OTH THERAP SUBST INTO RESP TRACT, VIA OPENING (08/22/17) ULTRASONOGRAPHY OF SUPERIOR VENA CAVA, GUIDANCE (12/16/17) Review of Systems - Constitutional Constitutional: Anorexia, Malaise. absent: Chills, Fever - EENT Eyes: absent: As Per HPI, Blind Spots, Blurred Vision, Change in Vision, Decreased Night Vision, Diplopia, Discharge, Dry Eye, Exophthalmos, Floaters, Irritation, Itchy Eyes, Loss of Peripheral Vision, Pain, Photophobia, Requires Corrective Lenses, Sees Flashes, Spots in Vision, Tunnel Vision, Other Visual Disturbances, Loss of Vision, Other Ears: absent: As Per HPI, Decreased Hearing, Ear Discharge, Ear Pain, Tinnitus, Abnormal Hearing, Disequilibrium, Dizziness, Other Nose/Mouth/Throat: absent: As Per HPI, Epistaxis, Nasal Congestion, Nasal Discharge, Nasal Obstruction, Nasal Trauma, Nose Pain, Post Nasal Drip, Sinus Pain, Sinus Pressure, Bleeding Gums, Change in Voice, Dental Pain, Dry Mouth, Dysphagia, Halitosis, Hoarsness, Lip Swelling, Mouth Lesions, Mouth Pain, Odynophagia, Sore Throat, Throat Swelling, Tongue Swelling, Facial Pain, Neck Pain, Neck Mass, Other - Cardiovascular Cardiovascular: absent: As Per HPI, Acrocyanosis, Chest Pain, Chest Pain at Rest, Chest Pain with Activity, Claudication, Diaphoresis, Dyspnea, Dyspnea on Exertion, Edema, Irregular Heart Rhythm, Pain Radiating to Arm/Neck/Jaw, Leg Edema, Leg Ulcers, Lightheadedness, Orthopnea, Palpitations, Paroxysmal Nocturnal Dyspnea, Pedal Edema, Radiating Pain, Rapid Heart Rate, Slow Heart Rate, Syncope, Other - Respiratory Respiratory: As Per HPI. absent: Hemoptysis - Gastrointestinal Gastrointestinal: As Per HPI - Genitourinary Genitourinary: absent: As Per HPI, Change in Urinary Stream, Difficulty Urinating, Dysuria, Flank Pain, Hematuria, Pyuria, Nocturia, Urinary Incontinence, Urinary Frequency, Urinary Hesitance, Urinary Urgency, Voiding Freq/Small Amts, Freq UTI, Hx Renal/Bladder Calculi, Hx /Renal Surgery, Bladder Distension, Other - Musculoskeletal Musculoskeletal: absent: As Per HPI, Abnormal Gait, Arthralgias, Atrophy, Back Pain, Deformity, Joint Swelling, Limited Range of Motion, Loss of Height, Muscle Cramps, Muscle Weakness, Myalgias, Neck Pain, Numbness, Radiating Pain into Limb, Stiffness, Tingling, Other - Integumentary Integumentary: absent: As Per HPI, Acne, Alopecia, Bleeding Lesions, Change in Hair, Change in Nails, Change in Pigmentation, Changing Lesions, Dry Skin, Erythema, Furuncle, Hirsutism, Lesions, New Lesions, Non-Healing Lesions, Photosensitivity, Pruritus, Rash, Skin Pain, Skin Ulcer, Sores, Striae, Swelling, Unusual Bruising, Wounds, Jaundice, Other - Neurological Neurological: absent: As Per HPI, Abnormal Gait, Abnormal Hearing, Abnormal Move ments, Abnormal Speech, Behavioral Changes, Burning Sensations, Confusion, Convulsions, Disequilibrium, Dizziness, Numbness, Focal Weakness, Frequent Falls, Headaches, Lack of Coordination, Loss of Vision, Memory Loss, Paresthesias, Radicular Pain, Restless Legs, Sensory Deficit, Syncope, Tingling, Tremor, Vertigo, Weakness, Other Visual Disturbances, Other - Psychiatric Psychiatric: absent: As Per HPI, Abnormal Sleep Pattern, Anhedonia, Anxiety, Auditory Hallucinations, Behavioral Changes, Change in Appetite, Change in Libido, Confusion, Depression, Difficulty Concentrating, Hallucinations, Homicidal Ideation, Hopelessness, Irritability, Memory Loss, Mood Swings, Panic Attacks, Paranoia, Suicidal Ideation, Visual Hallucinations, Tactile Hallucinations, Other - Endocrine Endocrine: absent: As Per HPI, Change in Body Appearance, Change in Libido, Cold Intolorance, Deepening of Voice, Excessive Sweating, Fatigue, Flushing, Heat Intolorance, Increase in Ring/Shoe/Hat Size, Palpitations, Polydipsia, Polyphagia, Polyuria, Other - Hematologic/Lymphatic Hematologic: absent: As Per HPI, Easy Bleeding, Easy Bruising, Lymphadenopathy, Other Past Patient History - Infectious Disease Hx of Infectious Diseases: None - Tetanus Immunizations Tetanus Immunization: Unknown - Past Medical History & Family History Past Medical History?: Yes - Past Social History Smoking Status: Former Smoker - CARDIAC Hx Congestive Heart Failure: Yes Hx Hypercholesterolemia: Yes Hx Hypertension: Yes Hx Pacemaker: No Hx Peripheral Edema: Yes - PULMONARY Hx Pneumonia: Yes - NEUROLOGICAL Hx Dementia: Yes Hx Seizures: Yes (pt denies) - HEENT Hx HEENT Problems: Yes (LEFT EYE BLIND) Hx Cataracts: Yes (BILATERAL) Other/Comment: rt eye cataract sx - RENAL Hx Chronic Kidney Disease: Yes - ENDOCRINE/METABOLIC Hx Diabetes Mellitus Type 2: Yes - HEMATOLOGICAL/ONCOLOGICAL Hx Anemia: Yes - INTEGUMENTARY Hx Dermatological Problems: Yes Other/Comment: 03-03-18 HEALING SACRAL PRESSURE ULCER.SCARRED AREA MORE TO LEFT. - MUSCULOSKELETAL/RHEUMATOLOGICAL Hx Arthritis: Yes Hx Falls: Yes - GASTROINTESTINAL Hx Pancreatitis: Yes - GENITOURINARY/GYNECOLOGICAL Hx Genitourinary Disorders: Yes Hx Prostate Problems: Yes (R TURP for BPH) - PSYCHIATRIC Hx Substance Use: No - SURGICAL HISTORY Hx Surgeries: Yes Hx Cataract Extraction: Yes Hx Vascular Access Device: Yes Other/Comment: hemorrhoidectomy - ANESTHESIA Hx Anesthesia: Yes Hx Anesthesia Reactions: No Hx Malignant Hyperthermia: No Meds Allergies/Adverse Reactions: Allergies Allergy/AdvReac Type Severity Reaction Status Date / Time No Known Allergies Allergy Verified 03/08/18 17:18 - Medications Medications: Current Medications Amlodipine Besylate (Norvasc) 10 mg PO DAILY [facility] Last Admin: 03/19/18 11:16 Dose: 10 mg Aspirin (Ecotrin) 81 mg PO DAILY [facility] Last Admin: 03/19/18 11:16 Dose: 81 mg Ferrous Sulfate (Feosol) 325 mg PO BID [facility] Last Admin: 03/19/18 18:08 Dose: 325 mg Haloperidol (Haldol) 1 mg PO BID [facility] Last Admin: 03/19/18 18:09 Dose: 1 mg Sodium Chloride (Sodium Chloride 0.45%) 1,000 mls @ 100 mls/hr IV .Q10H [facility] Last Admin: 03/19/18 18:16 Dose: 100 mls/hr Piperacillin Sod/Tazobactam (Sod 3.375 gm/ Sodium Chloride) 100 mls @ 200 mls/hr IVPB Q8H [facility]; Protocol Last Admin: 03/19/18 20:11 Dose: 200 mls/hr Insulin Aspart (Novolog) 3 unit SC AC [facility] Last Admin: 03/19/18 18:13 Dose: 3 unit Insulin Aspart (Novolog) 0 unit SC ACHS [facility] Last Admin: 03/19/18 18:14 Dose: 2 u Insulin Aspart (Novolog) 3 unit SC AC [facility] Last Admin: 03/19/18 16:34 Dose: Not Given Insulin Detemir (Levemir) 6 unit SC HS [facility] Insulin Detemir (Levemir) 6 unit SC HS [facility] Mirtazapine (Remeron) 15 mg PO HS [facility] Multivitamins (Hexavitamin) 1 tab PO DAILY [facility] Last Admin: 03/19/18 11:16 Dose: 1 tab Pantoprazole Sodium (Protonix Ec Tab) 40 mg PO DAILY [facility] Last Admin: 03/19/18 11:16 Dose: 40 mg Rosuvastatin Calcium (Crestor) 5 mg PO [facility] Sodium Bicarbonate (Sodium Bicarbonate Tab) 650 mg PO BID [facility] Last Admin: 03/19/18 18:08 Dose: 650 mg Tamsulosin HCl (Flomax) 0.4 mg PO DAILY [facility] Last Admin: 03/19/18 11:19 Dose: 0.4 mg Trazodone HCl (Desyrel) 50 mg PO [facility] Results - Vital Signs Recent Vital Signs: Last Vital Signs Temp 98.2 F 03/19/18 15:00 Pulse 87 03/19/18 15:00 Resp 18 03/19/18 15:00 BP 111/69 03/19/18 15:00 Pulse Ox 98 03/19/18 15:00 - Labs Result Diagrams: 03/19/18 01:03 03/19/18 02:14 Labs: Laboratory Results - last 24 hr 03/18/18 03/19/18 03/19/18 23:59 01:03 01:03 WBC 7.7 RBC 3.79 L Hgb 10.5 L Hct 33.7 L MCV 89.0 D MCH 27.7 MCHC 31.2 L RDW 18.7 H Plt Count 343 MPV 8.2 Neut % (Auto) 82.0 H Lymph % (Auto) 11.2 L [place] % (Auto) 5.5 Eos % (Auto) 0.6 Baso % (Auto) 0.7 Neut # (Auto) 6.3 Lymph # (Auto) 0.9 L [place] # (Auto) 0.4 Eos # (Auto) 0.0 Baso # (Auto) 0.1 PT INR APTT pO2 VBG pH VBG pCO2 VBG HCO3 VBG Total CO2 VBG O2 Sat (Calc) VBG Base Excess VBG Potassium Glucose Lactate Sodium 140 Potassium 6.2 H* D Chloride 111 H Carbon Dioxide 18 L Anion Gap 17 BUN 38 H Creatinine 2.3 H Est GFR ( Amer) 34 Est GFR (Non-Af Amer) 28 POC Glucose (mg/dL) 260 H Random Glucose 282 H Calcium 9.1 Magnesium 1.8 Total Bilirubin 0.8 AST 36 ALT 82 H Alkaline Phosphatase 321 H NT-Pro-B Natriuret Pep 940 H Total Protein 7.0 Albumin 3.5 D Globulin 3.5 Albumin/Globulin Ratio 1.0 Venous Blood Potassium Urine Color Urine Clarity Urine pH Ur Specific [place] Urine Protein Urine Glucose (UA) Urine Ketones Urine Blood Urine Nitrate Urine Bilirubin Urine Urobilinogen Ur Leukocyte Esterase Urine WBC (Auto) Urine RBC (Auto) Ur Squamous Epith Cells Urine Bacteria Hyaline Casts B-Hydroxybutyrate 0.25 03/19/18 03/19/18 03/19/18 02:10 02:14 02:14 WBC RBC Hgb Hct MCV MCH MCHC RDW Plt Count MPV Neut % (Auto) Lymph % (Auto) [place] % (Auto) Eos % (Auto) Baso % (Auto) Neut # (Auto) Lymph # (Auto) [place] # (Auto) Eos # (Auto) Baso # (Auto) PT 11.8 INR 1.1 APTT 33 pO2 43 VBG pH 7.26 L VBG pCO2 44 VBG HCO3 18.6 VBG Total CO2 21.1 L VBG O2 Sat (Calc) 78.8 H VBG Base Excess -7.2 L VBG Potassium 5.8 H Glucose 294 H Lactate 0.8 Sodium 136.0 142 Potassium 5.7 H Chloride 112.0 H 114 H Carbon Dioxide 19 L Anion Gap 15 BUN 36 H Creatinine 2.2 H Est GFR ( Amer) 36 Est GFR (Non-Af Amer) 30 POC Glucose (mg/dL) Random Glucose 281 H Calcium 8.6 Magnesium 1.7 Total Bilirubin 0.5 AST 18 ALT 76 H Alkaline Phosphatase 270 H NT-Pro-B Natriuret Pep 753 Total Protein 5.7 L Albumin 2.7 L D Globulin 3.0 Albumin/Globulin Ratio 0.9 L Venous Blood Potassium 5.8 H Urine Color Urine Clarity Urine pH Ur Specific [place] Urine Protein Urine Glucose (UA) Urine Ketones Urine Blood Urine Nitrate Urine Bilirubin Urine Urobilinogen Ur Leukocyte Esterase Urine WBC (Auto) Urine RBC (Auto) Ur Squamous Epith Cells Urine Bacteria Hyaline Casts B-Hydroxybutyrate 0.34 H 03/19/18 03/19/18 03/19/18 02:16 06:10 11:47 WBC RBC Hgb Hct MCV MCH MCHC RDW Plt Count MPV Neut % (Auto) Lymph % (Auto) [place] % (Auto) Eos % (Auto) Baso % (Auto) Neut # (Auto) Lymph # (Auto) [place] # (Auto) Eos # (Auto) Baso # (Auto) PT INR APTT pO2 VBG pH VBG pCO2 VBG HCO3 VBG Total CO2 VBG O2 Sat (Calc) VBG Base Excess VBG Potassium Glucose Lactate Sodium Potassium Chloride Carbon Dioxide Anion Gap BUN Creatinine Est GFR ( Amer) Est GFR (Non-Af Amer) POC Glucose (mg/dL) 183 H 319 H Random Glucose Calcium Magnesium Total Bilirubin AST ALT Alkaline Phosphatase NT-Pro-B Natriuret Pep Total Protein Albumin Globulin Albumin/Globulin Ratio Venous Blood Potassium Urine Color Yellow Urine Clarity Clear Urine pH 5.0 Ur Specific [place] 1.018 Urine Protein 2+ H Urine Glucose (UA) 1+ H Urine Ketones Negative Urine Blood Negative Urine Nitrate Negative Urine Bilirubin Negative Urine Urobilinogen Normal Ur Leukocyte Esterase Neg Urine WBC (Auto) 1 Urine RBC (Auto) < 1 Ur Squamous Epith Cells < 1 Urine Bacteria Rare Hyaline Casts 6-10 H B-Hydroxybutyrate 03/19/18 17:13 WBC RBC Hgb Hct MCV MCH MCHC RDW Plt Count MPV Neut % (Auto) Lymph % (Auto) [place] % (Auto) Eos % (Auto) Baso % (Auto) Neut # (Auto) Lymph # (Auto) [place] # (Auto) Eos # (Auto) Baso # (Auto) PT INR APTT pO2 VBG pH VBG pCO2 VBG HCO3 VBG Total CO2 VBG O2 Sat (Calc) VBG Base Excess VBG Potassium Glucose Lactate Sodium Potassium Chloride Carbon Dioxide Anion Gap BUN Creatinine Est GFR ( Amer) Est GFR (Non-Af Amer) POC Glucose (mg/dL) 359 H Random Glucose Calcium Magnesium Total Bilirubin AST ALT Alkaline Phosphatase NT-Pro-B Natriuret Pep Total Protein Albumin Globulin Albumin/Globulin Ratio Venous Blood Potassium Urine Color Urine Clarity Urine pH Ur Specific [place] Urine Protein Urine Glucose (UA) Urine Ketones Urine Blood Urine Nitrate Urine Bilirubin Urine Urobilinogen Ur Leukocyte Esterase Urine WBC (Auto) Urine RBC (Auto) Ur Squamous Epith Cells Urine Bacteria Hyaline Casts B-Hydroxybutyrate Assessment & Plan - Assessment and Plan (Free Text) Plan: may need FOB consider CT chest check cultures IV antibiotics
[2018-03-19] MEDS: Insulin Detemir 100 units/ml Vial (Levemir) SC SCH ×2 (22:06→22:10)
--- NOTE | 2018-03-20 00:49 | CON ---
DATE: 03/19/2018 HISTORY OF PRESENT ILLNESS: This is a 72-year-old male with recent hospital discharge yesterday and now admitted once again today because of behavioral disturbances with increased agitation and combativeness with supervening generalized body weakness and associated fever, chills, and rigors and is being referred now for diabetic evaluation and management. He was actually treated here for bilateral pneumonitis with IV antibiotics management as given. PAST MEDICAL HISTORY: As mentioned above, history of very labile type 2 insulin requiring diabetes with extremes of glycemic fluctuations related to the variability of his oral intake with extremes of hypoglycemia to marked hyperglycemic accelerations as noted thereof. History of diabetic retinopathy, polyneuropathy, and nephropathy with underlying chronic kidney disease. He also has known history of coronary artery disease and peripheral arterial disease and vasculopathy. FAMILY HISTORY: Positive for hypertension and diabetes. SOCIAL HISTORY: The patient has a remote history of smoking, but has quit many years ago. He has a supportive and family, otherwise. REVIEW OF SYSTEMS: As per the , he has been extremely agitated, combative and even physically assaultive overnight as noted till the present time, and also has episodic bouts of hypersomnolence and generalized body weakness. No chest pain or palpitations but was noticed by the to have increasing rigors and fever and chills with few weeks of chest pain. His oral intake again has been variable with nausea, dyspnea, and vague upper abdominal pains. No recent alternations of bowel or urinary patterns. PHYSICAL EXAMINATION: GENERAL: This is an average built male, in no apparent distress. VITAL SIGNS: Blood pressure of 150/90, pulse of 100 beats per minutes and regular, temperature 98, respirations 20, height is 5 feet 11 inches, weight is 165 pounds. HEENT: Head is normocephalic. Eyes anicteric with pink conjunctivae. Funduscopy not possible at this time. Ears, nose, and throat, otherwise, normal. NECK: Supple. Thyroid gland is normal in size. No carotid bruits or cervical adenopathy. CARDIOPULMONARY: Some adynamic precordium. S1 and S2 are rapid and regular. LUNGS: Showed scattered rhonchi. ABDOMEN: Flat, soft with positive bowel sounds. EXTREMITIES: No peripheral edema. Pulses are +2 bilaterally. LABORATORY DATA: Chemistries showed a BUN initially of 38, sodium 140, potassium 6.2, chloride 111, CO2 of 18, glucose 282, and creatinine 2.3. His ProBNP is 940, alkaline phosphatase is 321. ASSESSMENT: This is a 72-year-old male with uncontrolled and decompensated type 2 insulin requiring diabetes, presenting here with behavioral disturbance and supervening fever, chills, and pleuritic chest pain with early congestive heart failure and is now being referred for diabetic evaluation and management. He also has diabetic microvascular complications of retinopathy, polyneuropathy, and nephropathy with underlying chronic kidney disease. He has also significant history of coronary artery disease with previous admissions for congestive heat failure and peripheral arterial disease and vasculopathy. PLAN OF MANAGEMENT: We will once again give him a very low dose basal and bolus insulin drug combination because of for extremes of glycemic fluctuations. We will start him with NovoLog given as 3 units t.i.d. before meals to start today. We will also modify the coverage scale, extra correction scale of NovoLog glucose levels above 350 and detailed orders have been given. We will add Levemir given as 6 units subcu at bedtime daily to start tonight. We will also add IV hydration with half normal saline at 100 mL per hour as ordered. We will obtain serial chemistries and supplement accordingly as needed. We will follow. Myrna Sheffield MD
[2018-03-20] MEDS: Piperacillin/Tazobact 3.375 GM in Sodium Chloride 100 ML IVPB SCH ×3 (03:44→21:13)
[2018-03-20] MEDS: Sodium Chloride 0.45% 1,000 ML IV SCH (03:48)
[2018-03-20 06:40] LABS: HEMOGLOBIN 7.7 g/dL (12.0-18.0); MEAN CORPUSCULAR HEMOGLOBIN 28.6 pg (27.0-31.0); MEAN CORPUSCULAR HGB CONC 32.9 g/dL (33.0-37.0); RBC 2.68 Mil/uL (4.40-5.90); RED CELL DISTRIBUTION WIDTH 19.4 % (11.5-14.5); WHITE BLOOD COUNT 9.9 K/uL (4.8-10.8)
[2018-03-20 07:15] LABS: IRON < 10 ug/dL (49-181); TOTAL IRON BINDING CAPACITY 213 ug/dL (250-450)
[2018-03-20 07:16] LABS: ALB/GLOB RATIO 0.8 (1.0-2.1); ALBUMIN 2.1 g/dL (3.5-5.0); CALCIUM 7.8 mg/dl (8.6-10.4)
[2018-03-20 07:20] LABS: % IRON SATURATION 5 (20-55)
--- NOTE | 2018-03-20 07:26 | PQF ---
PROVIDER RESPONSE TEXT: Agree w/ met enceph REVIEWER QUERY TEXT: Clarification of Clinical Diagnostic Findings Please clarify documentation or clinical relevance for the clinical / diagnostic findings or whether those are insignificant or unable to be further specified. Metabolic Encephalopathy in the setting of Pneumonia , with Elevated Bun/Crea and hyperglycemia treat ed with Zosyn IV for infection IVFS Hydration and insulin. - Other Explanation - Unable to Determine The patient's Clinical Indicators include: Clinical Findings: AMS, Agitated and combative, delirium. Bun/ Crea= 38/ 2.3 CXR showing increased perihilar infiltrate . Treatment ; IVF w/ NS 100ml/hr , Zosyn IV Risk factor: Infection, Pneumonia, Elevated Bun/Crea, Hyperglycemia Query created by: Muriel Watts on 03/19/2018 4:53 PM Electronically signed by: Zohaib Morgan DO 03/20/2018 7:22 AM
[2018-03-20 07:30] LABS: FERRITIN 77.5 ng/mL
[2018-03-20] MEDS: (Novolog) Insulin Aspart, Recombinant 100 u/ml 10 ml vial SC SCH ×10 (08:05→21:28)
[2018-03-20] MEDS ORDERED: Epoetin Alfa 4000 UNIT/ML Inj SC SCH (10:00)
--- NOTE | 2018-03-20 10:17 | CP.PCM.PN ---
Subjective - Date & Time of Evaluation Date of Evaluation: 03/20/18 Time of Evaluation: 10:15 - Subjective Subjective: Nephrology Consultation Note: Assessment: stable Acute Kidney Injury (N17.9) HAGMA with ketoacidosis and hyperkalemia Pneumonia, AMS with delirium Uncontrolled diabetes mellitus with hypoglycemia and hyperglycemia Diabetic chronic Kidney Disease (E11.22) Hypertensive Chronic Kidney Disease (I12.9) Chronic Kidney Disease (N18.3) Stage 3 with ? mg proteinuria (R80.9) likely due to DM Anemia (D64.9), Vit D def with Secondary Hyperparathyroidism (E21.1), HTN (I12.9) BPH, diabetic neuropathy, chronic pancreatitis gastric ulcer, hx of etoh and smoking in past Vit D def Plan No acute need for renal replacement therapy at this time. Hypertension control with meds as ordered. Patient not on ACEI/ARB due to KHALIDA tendency and hyperkalemia. Monitor Input/Output, daily weights and renal function with basic metabolic panel at d/c please add [place] 8.4 gram/day at home added sodium bicarbonate 1300 mg 2 times a day, weekly Vit D continue with iron TID multivitamin supplements. PRBC as needed. added TRINIDAD as Hb <10. defer IV iron as pt with active infection requiring antibiotics continue with Flomax d/c IVF, add lasix from tomorrow low K diet. kayexylate as needed ID and endocrine following work up as ordered Dose meds/antibiotics for reduced GFR. Avoid fleets enema/magnesium based laxatives. Avoid nephrotoxins/NSAIDs/ iodinated contrast (unless needed emergently) Glycemic control Further work up/management as per primary team Thanks for allowing me to participate in care of your patient. Will follow patient with you. Please call if any Qs. had d/w team Dr Juan Diego [facility] Office: [phone] reason for consult: KHALIDA, CKD HPI:Pt is a 72 M with hx of uncontrolled diabetes Mellitus (30 years) with retinopathy, hypertension (15-20 years), CKD 3, s/p Right total hip replacement, gout, chronic pancreatitis, gastric ulcer with hiatal hernia with multiple admissions to hospital with hypo and hyperglycemia/DKA, recently for PNA, AMS with delirium ? dementia came back with behavioral changes. seen by psych Renal consult for kidney disease management pt has uncontrolled DM with sugars ranging from 20 to 500+ ROS: denies CP/SOB. denies nausea and abdomen pain. his confusion better at this time Physical Examination: General Appearance: in no acute respiratory distress, co-operative Vitals reviewed and noted as below Head; Atraumatic, normocephalic ENT: no ulcers no thrush. Tongue is midline. Oropharynx: no rash or ulcers. EYES: Pupils are equal, round and reactive to light accommodation. Eye muscles and extraocular movement intact. Sclera is anicteric. Neck; supple no lymphadenopathy, no thyromegaly or bruit Lungs: Normal respiratory rate/effort. Breath sounds bilateral equal and clear Heart: Normal rate. s1s2 normal. No rub or gallop. SM at LSB+. loud S2 Extremities: 1+ edema. No varicose veins Neurological: Patient is AO x 3 no focal deficit Skin: Warm and dry. Normal turgor. No rash. Palpitation: Normal elasticity for age Abdomen: Abdomen is soft. Bowel sounds +. There is no abdominal tenderness, no guarding/rigidity no organomegaly Psych: normal affect/mood and good insight MSK: no joint tenderness or swelling. Digits and nails normal, no deformity : kidney or bladder not palpable Labs/imaging reviewed. Past medical history, past surgical history, family history, social history, allergy reviewed and noted as below Family hx: no hx of CKD. Rest non-contributory Work up: 06/11/2017: SPEP neg Gordon/lambda ratio normal although faint free lambda in JANI renal sono 7 mm cyst normal LVEF on echo Objective - Vital Signs/Intake and Output Vital Signs (last 24 hours): Temp Pulse Resp BP Pulse Ox 98.6 F 72 20 122/54 L 97 03/20/18 07:00 03/20/18 07:00 03/20/18 07:00 03/20/18 07:00 03/20/18 07:00 Intake and Output: 03/20/18 03/20/18 06:59 18:59 Intake Total 800 Output Total 400 Balance 400 - Medications Medications: Current Medications Amlodipine Besylate (Norvasc) 10 mg PO DAILY [facility] Last Admin: 03/19/18 11:16 Dose: 10 mg Aspirin (Ecotrin) 81 mg PO DAILY [facility] Last Admin: 03/19/18 11:16 Dose: 81 mg Epoetin Killian (Procrit) 8,000 unit SC MWF [facility] Ergocalciferol (Drisdol 50,000 Intl Units Cap) 1 cap PO Q7D [facility] Ferrous Sulfate (Feosol) 325 mg PO TID [facility] Furosemide (Lasix) 20 mg IVP ONCE PRN PRN Reason: Other Haloperidol (Haldol) 1 mg PO BID [facility] Last Admin: 03/19/18 18:09 Dose: 1 mg Piperacillin Sod/Tazobactam (Sod 3.375 gm/ Sodium Chloride) 100 mls @ 200 mls/hr IVPB Q8H [facility]; Protocol Last Admin: 03/20/18 03:44 Dose: 200 mls/hr Insulin Aspart (Novolog) 3 unit SC AC [facility] Last Admin: 03/20/18 08:20 Dose: 3 unit Insulin Aspart (Novolog) 0 unit SC ACHS [facility] Last Admin: 03/20/18 08:05 Dose: Not Given Insulin Aspart (Novolog) 3 unit SC AC [facility] Last Admin: 03/20/18 08:05 Dose: Not Given Insulin Detemir (Levemir) 6 unit SC [facility] Last Admin: 03/19/18 22:10 Dose: 6 unit Insulin Detemir (Levemir) 6 unit SC HS [facility] Last Admin: 03/19/18 22:06 Dose: Not Given Mirtazapine (Remeron) 15 mg PO [facility] Last Admin: 03/19/18 22:09 Dose: 15 mg Multivitamins (Hexavitamin) 1 tab PO DAILY [facility] Last Admin: 03/19/18 11:16 Dose: 1 tab Pantoprazole Sodium (Protonix Ec Tab) 40 mg PO DAILY [facility] Last Admin: 03/19/18 11:16 Dose: 40 mg Rosuvastatin Calcium (Crestor) 5 mg PO [facility] Last Admin: 03/19/18 22:10 Dose: 5 mg Sodium Bicarbonate (Sodium Bicarbonate Tab) 1,300 mg PO BID [facility] Tamsulosin HCl (Flomax) 0.4 mg PO DAILY [facility] Last Admin: 03/19/18 11:19 Dose: 0.4 mg Trazodone HCl (Desyrel) 50 mg PO [facility] Last Admin: 03/19/18 22:10 Dose: 50 mg - Labs Labs: 03/20/18 06:32 03/20/18 06:32 PT 11.8 SECONDS (9.7-12.2) 03/19/18 02:14 INR 1.1 03/19/18 02:14 APTT 33 SECONDS (21-34) 03/19/18 02:14
[2018-03-20] MEDS: Multiple Vitamins Tab PO SCH (10:20)
[2018-03-20] MEDS: Pantoprazole 40 mg EC Tab PO SCH (10:20)
--- NOTE | 2018-03-20 10:57 | PN ---
DATE: 03/20/2018 SUBJECTIVE: He slept well last night, pleasantly confused this morning in bed. He is being seen by Infectious Disease, Endocrinology, and Renal. PHYSICAL EXAMINATION: VITAL SIGNS: He has a 98.6 temp, 72 pulse, 182/54 blood pressure, 20 respiratory rate, 97% O2 sat on room air. HEENT: Head is atraumatic, normocephalic. HEART: Regular rate. LUNGS: Decreased breath sounds, but clear. ABDOMEN: Soft, nontender, positive bowel sounds. EXTREMITIES: No edema. He is eating a little bit, not great. MEDICATIONS: He is currently on Crestor, Desyrel, Ecotrin, Feosol, Flomax, Haldol, vitamins, Lasix, Levemir, amlodipine, NovoLog, Zosyn, pantoprazole, Remeron, sodium bicarb, and IV fluids. LABORATORY DATA: He has a 9.9 white count; his hemoglobin dropped to 7.7, we are going to transfuse him 2 units of packed red blood cells; 23.3 hematocrit with 273 platelets. He has a 140 sodium; potassium 4.6; BUN 31; creatinine 1.5; GFR is 46; sugar is 137; calcium is 7.8, low; phosphorus 3.9. Iron was less than 10, he is on iron, get transfused. AST is 20, ALT is 52, alk phos 169, and vitamin D is less than 12. ASSESSMENT AND PLAN: He is being seen by Infectious Disease, Renal, and Endocrinology and I believe the plan is now for placement into a subacute rehab. He has been back and forth 6 or 7 times from home to the hospitalvery low, blood sugar is very high, blood sugars have been in diabetes ketoacidosis numerous times, very noncompliant. I discussed this with the who said she cannot take care of him at all anymore and she is finally agreeing for a placement and that is my plan. I believe the wants [facility], again to [facility] that will be fantastic. He is now anemic. Zohaib Morgan DO [facility] # [phone] DAISY
[2018-03-20] MEDS: Ergocalciferol 50,000 Intl Units Cap PO SCH (14:19)
--- NOTE | 2018-03-20 19:46 | CP.PCM.PN ---
Subjective - Date & Time of Evaluation Date of Evaluation: 03/20/18 Time of Evaluation: 06:00 - Subjective Subjective: 72M with PMH of uncontrolled diabetes with multiple admissions for DKA was recently admitted for pneumonia Objective - Vital Signs/Intake and Output Vital Signs (last 24 hours): Temp Pulse Resp BP Pulse Ox 98 F 67 20 127/72 100 03/20/18 17:00 03/20/18 17:00 03/20/18 17:00 03/20/18 17:00 03/20/18 17:00 Intake and Output: 03/20/18 03/21/18 18:59 06:59 Intake Total 325 Balance 325 - Medications Medications: Current Medications Amlodipine Besylate (Norvasc) 10 mg PO DAILY [facility] Last Admin: 03/20/18 10:20 Dose: 10 mg Aspirin (Ecotrin) 81 mg PO DAILY [facility] Last Admin: 03/20/18 10:20 Dose: 81 mg Epoetin Killian (Procrit) 8,000 unit SC MWF [facility] Last Admin: 03/20/18 11:52 Dose: 8,000 unit Ergocalciferol (Drisdol 50,000 Intl Units Cap) 1 cap PO Q7D [facility] Last Admin: 03/20/18 14:19 Dose: 1 cap Ferrous Sulfate (Feosol) 325 mg PO TID [facility] Last Admin: 03/20/18 18:14 Dose: 325 mg Furosemide (Lasix) 20 mg IVP ONCE PRN PRN Reason: Other Furosemide (Lasix) 20 mg PO DAILY [facility] Haloperidol (Haldol) 1 mg PO BID [facility] Last Admin: 03/20/18 18:13 Dose: 1 mg Piperacillin Sod/Tazobactam (Sod 3.375 gm/ Sodium Chloride) 100 mls @ 200 mls/hr IVPB Q8H [facility]; Protocol Last Admin: 03/20/18 14:20 Dose: 200 mls/hr Insulin Aspart (Novolog) 3 unit SC AC [facility] Last Admin: 03/20/18 18:15 Dose: Not Given Insulin Aspart (Novolog) 0 unit SC ACHS [facility] Last Admin: 03/20/18 18:15 Dose: Not Given Insulin Aspart (Novolog) 3 unit SC AC [facility] Last Admin: 03/20/18 17:31 Dose: Not Given Insulin Detemir (Levemir) 6 unit SC HS [facility] Last Admin: 03/19/18 22:10 Dose: 6 unit Insulin Detemir (Levemir) 6 unit SC [facility] Last Admin: 03/19/18 22:06 Dose: Not Given Mirtazapine (Remeron) 15 mg PO [facility] Last Admin: 03/19/18 22:09 Dose: 15 mg Multivitamins (Hexavitamin) 1 tab PO DAILY [facility] Last Admin: 03/20/18 10:20 Dose: 1 tab Pantoprazole Sodium (Protonix Ec Tab) 40 mg PO DAILY [facility] Last Admin: 03/20/18 10:20 Dose: 40 mg Rosuvastatin Calcium (Crestor) 5 mg PO [facility] Last Admin: 03/19/18 22:10 Dose: 5 mg Sodium Bicarbonate (Sodium Bicarbonate Tab) 1,300 mg PO BID [facility] Last Admin: 03/20/18 18:14 Dose: 1,300 mg Tamsulosin HCl (Flomax) 0.4 mg PO DAILY [facility] Last Admin: 03/20/18 10:20 Dose: 0.4 mg Trazodone HCl (Desyrel) 50 mg PO [facility] Last Admin: 03/19/18 22:10 Dose: 50 mg - Labs Labs: 03/20/18 06:32 03/20/18 06:32 PT 11.8 SECONDS (9.7-12.2) 03/19/18 02:14 INR 1.1 03/19/18 02:14 APTT 33 SECONDS (21-34) 03/19/18 02:14 - Constitutional Appears: Non-toxic, Confused, Cachectic, Chronically Ill - Head Exam Head Exam: NORMOCEPHALIC - Eye Exam Eye Exam: absent: Scleral icterus - ENT Exam ENT Exam: Mucous Membranes Dry - Neck Exam Neck Exam: absent: Lymphadenopathy - Respiratory Exam Respiratory Exam: Decreased Breath Sounds, Rhonchi - Cardiovascular Exam Cardiovascular Exam: REGULAR RHYTHM - GI/Abdominal Exam GI & Abdominal Exam: Distended, Soft - Rectal Exam Rectal Exam: Deferred - Exam Exam: NORMAL INSPECTION Assessment and Plan - Assessment and Plan (Free Text) Plan: 72M with PMH of uncontrolled diabetes with multiple admissions for DKA was recently admitted for pneumonia IV rx in progress await pulm eval
[2018-03-20] MEDS: Insulin Detemir 100 units/ml Vial (Levemir) SC SCH ×2 (21:13→22:04)
--- NOTE | 2018-03-21 03:15 | PN ---
DATE: 03/20/2018 SUBJECTIVE: This is a 72-year-old male with recent uncontrolled type 2 insulin-requiring diabetes, now being followed closely for metabolic management. He has ongoing medical therapy for acute pneumonitis with supervening congestive heart failure and is also now being followed closely for metabolic management. His glucose values today are fluctuating, but improved, and the glucose levels have ranged from 99-178 and 251 mg per dL. His chemistries showed a BUN of 31, sodium 140, potassium 4.6, chloride 113, CO2 18, glucose 137, and creatinine 1.5. So at this time, we will continue the same basal and bolus insulin regimen to allow for dose equilibration and keep him on the NovoLog given as 3 units t.i.d. before meals as ordered. We will continue the basal insulin given as Levemir at 6 units subcutaneously at bedtime daily as given. We will titrate incrementally as indicated to optimize metabolic control. We will follow and advise accordingly. Myrna Sheffield MD
[2018-03-21] MEDS: Piperacillin/Tazobact 3.375 GM in Sodium Chloride 100 ML IVPB SCH ×3 (03:29→18:45)
[2018-03-21] MEDS ORDERED: Dextrose 50% SYRINGE Inj (50 ml) IV STA (06:25)
[2018-03-21] MEDS ORDERED: Dextrose 50% VIAL Inj (50 ml) IV ONE (06:30)
[2018-03-21 07:29] LABS: MEAN CORPUSCULAR HGB CONC 33.1 g/dL (33.0-37.0); MEAN PLATELET VOLUME 8.1 fL (7.2-11.7); RBC 4.29 Mil/uL (4.40-5.90); RED CELL DISTRIBUTION WIDTH 18.6 % (11.5-14.5)
[2018-03-21] MEDS: (Novolog) Insulin Aspart, Recombinant 100 u/ml 10 ml vial SC SCH ×7 (07:30→21:54)
[2018-03-21 07:53] LABS: MEAN CELL VOLUME 84.9 fL (80.0-94.0)
[2018-03-21 08:07] LABS: ALBUMIN 2.5 g/dL (3.5-5.0); ALT/SGPT 44 U/L (21-72); AST/SGOT 23 U/L (17-59); BLOOD UREA NITROGEN 24 mg/dL (9-20); CALCIUM 8.3 mg/dl (8.6-10.4); GFR NON-AFRICAN AMERICAN 50
[2018-03-21 08:35] LABS: ALB/GLOB RATIO 0.8 (1.0-2.1)
[2018-03-21] MEDS: Pantoprazole 40 mg EC Tab PO SCH (09:27)
[2018-03-21] MEDS: Multiple Vitamins Tab PO SCH (09:27)
--- NOTE | 2018-03-21 14:58 | CP.PCM.PN ---
Subjective - Date & Time of Evaluation Date of Evaluation: 03/21/18 Time of Evaluation: 14:56 - Subjective Subjective: Nephrology Consultation Note: Assessment: stable Acute Kidney Injury (N17.9) HAGMA with ketoacidosis and hyperkalemia Pneumonia, AMS with delirium Uncontrolled diabetes mellitus with hypoglycemia and hyperglycemia Diabetic chronic Kidney Disease (E11.22) Hypertensive Chronic Kidney Disease (I12.9) Chronic Kidney Disease (N18.3) Stage 3 with ? mg proteinuria (R80.9) likely due to DM Anemia (D64.9), Vit D def with Secondary Hyperparathyroidism (E21.1), HTN (I12.9) BPH, diabetic neuropathy, chronic pancreatitis gastric ulcer, hx of etoh and smoking in past Vit D def Plan No acute need for renal replacement therapy at this time. renal function remains stable bp controlled Monitor Input/Output, daily weights and renal function with basic metabolic panel K currently ok continue oral bicarb PRBC as needed. added TRINIDAD as Hb <10. defer IV iron as pt with active infection requiring antibiotics continue with Flomax ID and endocrine following S: seen and examined feeling better Physical Examination: General Appearance: in no acute respiratory distress, co-operative Vitals reviewed and noted as below Head; Atraumatic, normocephalic ENT: no ulcers no thrush. Tongue is midline. Oropharynx: no rash or ulcers. EYES: Pupils are equal, round and reactive to light accommodation. Eye muscles and extraocular movement intact. Sclera is anicteric. Neck; supple no lymphadenopathy, no thyromegaly or bruit Lungs: Normal respiratory rate/effort. Breath sounds bilateral equal and clear Heart: Normal rate. s1s2 normal. No rub or gallop. SM at LSB+. loud S2 Extremities: 1+ edema. No varicose veins Neurological: Patient is AO x 3 no focal deficit Skin: Warm and dry. Normal turgor. No rash. Palpitation: Normal elasticity for age Abdomen: Abdomen is soft. Bowel sounds +. There is no abdominal tenderness, no guarding/rigidity no organomegaly Psych: normal affect/mood and good insight MSK: no joint tenderness or swelling. Digits and nails normal, no deformity : kidney or bladder not palpable Labs/imaging reviewed. Past medical history, past surgical history, family history, social history, allergy reviewed and noted as below Family hx: no hx of CKD. Rest non-contributory Objective - Vital Signs/Intake and Output Vital Signs (last 24 hours): Temp Pulse Resp BP Pulse Ox 98.0 F 57 L 18 122/65 99 03/21/18 07:05 03/21/18 07:05 03/21/18 07:05 03/21/18 12:03 03/21/18 07:05 Intake and Output: 03/21/18 03/21/18 06:59 18:59 Intake Total 1290 580 Balance 1290 580 - Medications Medications: Current Medications Amlodipine Besylate (Norvasc) 10 mg PO DAILY [facility] Last Admin: 03/21/18 09:26 Dose: 10 mg Aspirin (Ecotrin) 81 mg PO DAILY [facility] Last Admin: 03/21/18 09:26 Dose: 81 mg Epoetin Killian (Procrit) 8,000 unit SC MWF [facility] Last Admin: 03/20/18 11:52 Dose: 8,000 unit Ergocalciferol (Drisdol 50,000 Intl Units Cap) 1 cap PO Q7D [facility] Last Admin: 03/20/18 14:19 Dose: 1 cap Ferrous Sulfate (Feosol) 325 mg PO TID [facility] Last Admin: 03/21/18 13:07 Dose: 325 mg Furosemide (Lasix) 20 mg IVP ONCE PRN PRN Reason: Other Last Admin: 03/20/18 20:07 Dose: 20 mg Furosemide (Lasix) 20 mg PO DAILY [facility] Last Admin: 03/21/18 12:03 Dose: 20 mg Haloperidol (Haldol) 1 mg PO BID [facility] Last Admin: 03/21/18 09:27 Dose: 1 mg Piperacillin Sod/Tazobactam (Sod 3.375 gm/ Sodium Chloride) 100 mls @ 200 mls/hr IVPB Q8H [facility]; Protocol Last Admin: 03/21/18 10:48 Dose: 200 mls/hr Insulin Aspart (Novolog) 3 unit SC AC [facility] Last Admin: 03/21/18 13:08 Dose: 3 unit Insulin Aspart (Novolog) 0 unit SC ACHS [facility] Last Admin: 03/21/18 12:06 Dose: Not Given Insulin Detemir (Levemir) 6 unit SC HS [facility] Last Admin: 03/20/18 22:04 Dose: 6 unit Insulin Detemir (Levemir) 6 unit SC HS [facility] Last Admin: 03/20/18 21:13 Dose: Not Given Mirtazapine (Remeron) 15 mg PO HS [facility] Last Admin: 03/20/18 22:03 Dose: 15 mg Multivitamins (Hexavitamin) 1 tab PO DAILY [facility] Last Admin: 03/21/18 09:27 Dose: 1 tab Pantoprazole Sodium (Protonix Ec Tab) 40 mg PO DAILY [facility] Last Admin: 03/21/18 09:27 Dose: 40 mg Rosuvastatin Calcium (Crestor) 5 mg PO HS [facility] Last Admin: 03/20/18 22:03 Dose: 5 mg Sodium Bicarbonate (Sodium Bicarbonate Tab) 1,300 mg PO BID [facility] Last Admin: 03/21/18 09:27 Dose: 1,300 mg Tamsulosin HCl (Flomax) 0.4 mg PO DAILY [facility] Last Admin: 03/21/18 09:27 Dose: 0.4 mg Trazodone HCl (Desyrel) 50 mg PO HS [facility] Last Admin: 03/20/18 22:03 Dose: 50 mg - Labs Labs: 03/21/18 07:14 03/21/18 07:14 PT 11.8 SECONDS (9.7-12.2) 03/19/18 02:14 INR 1.1 03/19/18 02:14 APTT 33 SECONDS (21-34) 03/19/18 02:14
[2018-03-21] MEDS: Insulin Detemir 100 units/ml Vial (Levemir) SC SCH ×2 (21:53→21:54)
[2018-03-22] MEDS ORDERED: Dextrose 50% VIAL Inj (50 ml) IV ONE ×2 (02:43→06:35)
[2018-03-22] MEDS ORDERED: Dextrose 50% SYRINGE Inj (50 ml) IV STA ×2 (02:58→06:38)
[2018-03-22] MEDS: Piperacillin/Tazobact 3.375 GM in Sodium Chloride 100 ML IVPB SCH ×3 (03:11→19:06)
[2018-03-22] MEDS: (Novolog) Insulin Aspart, Recombinant 100 u/ml 10 ml vial SC SCH ×7 (08:29→21:08)
--- NOTE | 2018-03-22 08:35 | PN ---
DATE: 03/21/2018 SUBJECTIVE: He just got finished being transfused in the past 24 hours for a hemoglobin of 7. He is doing better and feels fine. He is in the hospital bed, in 559. MEDICATIONS: He is on Crestor, Desyrel, Ecotrin, Feosol, Flomax, Haldol, vitamin, Lasix, Levemir, Norvasc, NovoLog, Zosyn, Procrit, Protonix, Remeron, and sodium bicarb. PHYSICAL EXAMINATION: VITAL SIGNS: He has a 98.6 temp, 63 pulse, 125/70 blood pressure, 18 respiratory rate, 99% O2 sat on room air. HEENT: His head is atraumatic, normocephalic. Throat is moist. NECK: Supple. HEART: Regular rate. LUNGS: Decreased breath sounds, but clear to auscultation. ABDOMEN: Soft, nontender. Positive bowel sounds. No guarding. No rebound. No CVA tenderness. EXTREMITIES: No edema. LABORATORY DATA: He has a 9.9 white count; 7.7 hemoglobin, it was 10.5, will see what his hemoglobin is today which is pending. He had 251 blood sugar, that is the last one, still pending labs for today. ASSESSMENT AND PLAN: He is being seen by Infectious Disease, Renal, and Endocrinology. He has uncontrolled diabetes, multiple admissions for DKA. He has been admitted for pneumonia. He is on IV antibiotics by Infectious Disease. Transfuse. We are waiting for labs to come back. Also waiting for placement, hopefully [facility] for placement. Continue with aggressive treatment and care We will see what his hemoglobin is after 2 units of packed red blood cells. Zohaib Morgan DO MTDD
[2018-03-22] MEDS: Pantoprazole 40 mg EC Tab PO SCH (09:32)
[2018-03-22] MEDS: Multiple Vitamins Tab PO SCH (09:32)
--- NOTE | 2018-03-22 09:47 | PN ---
DATE: 03/21/2018 ENDOCRINOLOGY FOLLOWUP NOTE LOCATION: In room 559. SUBJECTIVE: This is a 72-year-old male with recent uncontrolled type 2 insulin-requiring diabetes, now being followed closely for metabolic management. His glycemic levels are extremely fluctuating as noted thereof, and the glucose values overnight have ranged from 99 to 251 mg/dL. His latest chemistry shows BUN of 24, sodium 139, potassium 3.5, chloride 106, CO2 of 23, glucose 112, and creatinine 1.4. So at this time, we will continue once again his basal and bolus insulin regimen which is really a very low dose basal and bolus combination as given. We will continue the NovoLog given as 3 units subcutaneously t.i.d. before meals as ordered. We will also continue Levemir given as 6 units subcutaneously at bedtime daily as given. We will titrate incrementally as indicated to optimize metabolic control. We will follow and advise accordingly. Myrna Sheffield MD
--- NOTE | 2018-03-22 13:00 | CP.PCM.PN ---
Subjective - Date & Time of Evaluation Date of Evaluation: 03/22/18 Time of Evaluation: 12:59 - Subjective Subjective: Nephrology Consultation Note: Assessment: stable Acute Kidney Injury (N17.9) HAGMA with ketoacidosis and hyperkalemia Pneumonia, AMS with delirium Uncontrolled diabetes mellitus with hypoglycemia and hyperglycemia Diabetic chronic Kidney Disease (E11.22) Hypertensive Chronic Kidney Disease (I12.9) Chronic Kidney Disease (N18.3) Stage 3 with ? mg proteinuria (R80.9) likely due to DM Anemia (D64.9), Vit D def with Secondary Hyperparathyroidism (E21.1), HTN (I12.9) BPH, diabetic neuropathy, chronic pancreatitis gastric ulcer, hx of etoh and smoking in past Vit D def Plan No acute need for renal replacement therapy at this time. renal function remains stable bp stable Monitor Input/Output, daily weights and renal function with basic metabolic panel no new labs today continue oral bicarb TRINIDAD on hold given hgb 12 continue with Flomax ID and endocrine following S: seen and examined feeling better Physical Examination: General Appearance: in no acute respiratory distress, co-operative Vitals reviewed and noted as below Head; Atraumatic, normocephalic ENT: no ulcers no thrush. Tongue is midline. Oropharynx: no rash or ulcers. EYES: Pupils are equal, round and reactive to light accommodation. Eye muscles and extraocular movement intact. Sclera is anicteric. Neck; supple no lymphadenopathy, no thyromegaly or bruit Lungs: Normal respiratory rate/effort. Breath sounds bilateral equal and clear Heart: Normal rate. s1s2 normal. No rub or gallop. SM at LSB+. loud S2 Extremities: 1+ edema. No varicose veins Neurological: Patient is AO x 3 no focal deficit Skin: Warm and dry. Normal turgor. No rash. Palpitation: Normal elasticity for age Abdomen: Abdomen is soft. Bowel sounds +. There is no abdominal tenderness, no guarding/rigidity no organomegaly Psych: nml affect poor insight MSK: no joint tenderness or swelling. Digits and nails normal, no deformity : kidney or bladder not palpable Labs/imaging reviewed. Past medical history, past surgical history, family history, social history, allergy reviewed and noted as below Family hx: no hx of CKD. Rest non-contributory Objective - Vital Signs/Intake and Output Vital Signs (last 24 hours): Temp Pulse Resp BP Pulse Ox 97.7 F 58 L 20 185/85 H 99 03/22/18 08:00 03/22/18 08:00 03/22/18 08:00 03/22/18 09:32 03/22/18 08:00 Intake and Output: 03/22/18 03/22/18 06:59 18:59 Intake Total 1330 Output Total 1400 Balance -70 - Medications Medications: Current Medications Amlodipine Besylate (Norvasc) 10 mg PO DAILY [facility] Last Admin: 03/22/18 09:32 Dose: 10 mg Aspirin (Ecotrin) 81 mg PO DAILY [facility] Last Admin: 03/22/18 09:32 Dose: 81 mg Ergocalciferol (Drisdol 50,000 Intl Units Cap) 1 cap PO Q7D [facility] Last Admin: 03/20/18 14:19 Dose: 1 cap Ferrous Sulfate (Feosol) 325 mg PO TID [facility] Last Admin: 03/22/18 09:32 Dose: 325 mg Furosemide (Lasix) 20 mg IVP ONCE PRN PRN Reason: Other Last Admin: 03/20/18 20:07 Dose: 20 mg Furosemide (Lasix) 20 mg PO DAILY [facility] Last Admin: 03/22/18 09:32 Dose: 20 mg Haloperidol (Haldol) 1 mg PO BID [facility] Last Admin: 03/22/18 09:33 Dose: 1 mg Piperacillin Sod/Tazobactam (Sod 3.375 gm/ Sodium Chloride) 100 mls @ 200 mls/hr IVPB Q8H [facility]; Protocol Last Admin: 03/22/18 12:39 Dose: 200 mls/hr Ibuprofen (Motrin Tab) 600 mg PO Q8H PRN PRN Reason: Pain, moderate (4-7) Last Admin: 03/22/18 09:33 Dose: 600 mg Insulin Aspart (Novolog) 3 unit SC AC [facility] Last Admin: 03/22/18 12:16 Dose: Not Given Insulin Aspart (Novolog) 0 unit SC ACHS [facility] Last Admin: 03/22/18 12:17 Dose: Not Given Insulin Detemir (Levemir) 6 unit SC HS [facility] Last Admin: 03/21/18 21:53 Dose: 6 unit Insulin Detemir (Levemir) 6 unit SC HS [facility] Last Admin: 03/21/18 21:54 Dose: Not Given Mirtazapine (Remeron) 15 mg PO HS [facility] Last Admin: 03/21/18 21:54 Dose: 15 mg Multivitamins (Hexavitamin) 1 tab PO DAILY [facility] Last Admin: 03/22/18 09:32 Dose: 1 tab Pantoprazole Sodium (Protonix Ec Tab) 40 mg PO DAILY [facility] Last Admin: 03/22/18 09:32 Dose: 40 mg Rosuvastatin Calcium (Crestor) 5 mg PO HS [facility] Last Admin: 03/21/18 21:51 Dose: 5 mg Sodium Bicarbonate (Sodium Bicarbonate Tab) 1,300 mg PO BID [facility] Last Admin: 03/22/18 09:32 Dose: 1,300 mg Tamsulosin HCl (Flomax) 0.4 mg PO DAILY [facility] Last Admin: 03/22/18 09:33 Dose: 0.4 mg Trazodone HCl (Desyrel) 50 mg PO HS [facility] Last Admin: 03/21/18 21:53 Dose: 50 mg - Labs Labs: 03/21/18 07:14 03/21/18 07:14 PT 11.8 SECONDS (9.7-12.2) 03/19/18 02:14 INR 1.1 03/19/18 02:14 APTT 33 SECONDS (21-34) 03/19/18 02:14
--- NOTE | 2018-03-22 14:41 | PN ---
DATE: 03/22/2018 SUBJECTIVE: I saw Ferny resting comfortably in bed. He slept most of the night, the one-on-one person said. He is alert this morning. He is hungry. He is comfortable. He is fairly in good spirits. He has had Crestor, Desyrel, Drisdol, Ecotrin, Feosol, Flomax, Haldol, vitamins, Lasix, Levemir, Motrin, Norvasc, NovoLog, Zosyn, Procrit, Protonix, Remeron, and sodium bicarbonate. He has no chest pain. No shortness of breath. No abdominal pain. His blood sugars have been up and down. PHYSICAL EXAMINATION: VITAL SIGNS: 98.2 temp, 134/75 blood pressure, 20 respiratory rate, 98% saturation on room air. HEENT: Head is atraumatic, normocephalic. Throat is moist. NECK: Supple. HEART: Regular rate. LUNGS: Decreased breath sounds, but clear. Poor inspirations but no wheezes, rhonchi, or rales. ABDOMEN: Soft, nontender. Positive bowel sounds. No guarding. No rebound. No CVA tenderness. EXTREMITIES: No edema. Physical therapy recommended SOAR. LABORATORY DATA: He has 10 white count, 12 hemoglobin, 36.4 hematocrit with platelets. He has 139 sodium, potassium 3.5, we will give him some potassium. BUN 24, creatinine 1.4, better. GFR is up to 50. Sugar was 112. Total bili is 1, AST is 23, ALT is 44, alk phos 209, little high. Total protein is 5.7. His vitamin D was low, will get some vitamin D if he is not on it yet. Fluids negative. ASSESSMENT AND PLAN: He is being seen by Renal, Endocrinology, and Infectious Diseases. My plan for him is [facility] to long-term care, I am hoping maybe [facility] would do that. Give him some vitamin D. Continue with intravenous antibiotics. He has high blood sugar, low blood sugar. He infiltrate, anemia, need to transfuse him. He had high potassium, now he has low potassium. He had acute kidney injury. I am hoping he will go to [facility] to long-term placement, maybe [facility]. Zohaib Morgan DO [facility] # [id number] MTDGeoffrey
--- NOTE | 2018-03-22 18:05 | CP.PCM.PN ---
Subjective - Date & Time of Evaluation Date of Evaluation: 03/22/18 Time of Evaluation: 10:00 - Subjective Subjective: events noted iv rx in progress discussed with dr subramanian Objective - Vital Signs/Intake and Output Vital Signs (last 24 hours): Temp Pulse Resp BP Pulse Ox 97.6 F 57 L 20 154/91 H 100 03/22/18 15:30 03/22/18 15:30 03/22/18 15:30 03/22/18 15:30 03/22/18 15:30 Intake and Output: 03/22/18 03/22/18 06:59 18:59 Intake Total 1330 Output Total 1400 Balance -70 - Medications Medications: Current Medications Amlodipine Besylate (Norvasc) 10 mg PO DAILY [facility] Last Admin: 03/22/18 09:32 Dose: 10 mg Aspirin (Ecotrin) 81 mg PO DAILY [facility] Last Admin: 03/22/18 09:32 Dose: 81 mg Ergocalciferol (Drisdol 50,000 Intl Units Cap) 1 cap PO Q7D [facility] Last Admin: 03/20/18 14:19 Dose: 1 cap Ferrous Sulfate (Feosol) 325 mg PO TID [facility] Last Admin: 03/22/18 17:42 Dose: 325 mg Furosemide (Lasix) 20 mg IVP ONCE PRN PRN Reason: Other Last Admin: 03/20/18 20:07 Dose: 20 mg Furosemide (Lasix) 20 mg PO DAILY [facility] Last Admin: 03/22/18 09:32 Dose: 20 mg Haloperidol (Haldol) 1 mg PO BID [facility] Last Admin: 03/22/18 17:42 Dose: 1 mg Piperacillin Sod/Tazobactam (Sod 3.375 gm/ Sodium Chloride) 100 mls @ 200 mls/hr IVPB Q8H [facility]; Protocol Last Admin: 03/22/18 12:39 Dose: 200 mls/hr Ibuprofen (Motrin Tab) 600 mg PO Q8H PRN PRN Reason: Pain, moderate (4-7) Last Admin: 03/22/18 09:33 Dose: 600 mg Insulin Aspart (Novolog) 3 unit SC AC [facility] Last Admin: 03/22/18 17:41 Dose: 3 unit Insulin Aspart (Novolog) 0 unit SC ACHS [facility] Last Admin: 03/22/18 17:24 Dose: Not Given Insulin Detemir (Levemir) 6 unit SC [facility] Last Admin: 03/21/18 21:53 Dose: 6 unit Insulin Detemir (Levemir) 6 unit SC [facility] Last Admin: 03/21/18 21:54 Dose: Not Given Mirtazapine (Remeron) 15 mg PO [facility] Last Admin: 03/21/18 21:54 Dose: 15 mg Multivitamins (Hexavitamin) 1 tab PO DAILY [facility] Last Admin: 03/22/18 09:32 Dose: 1 tab Pantoprazole Sodium (Protonix Ec Tab) 40 mg PO DAILY [facility] Last Admin: 03/22/18 09:32 Dose: 40 mg Rosuvastatin Calcium (Crestor) 5 mg PO [facility] Last Admin: 03/21/18 21:51 Dose: 5 mg Sodium Bicarbonate (Sodium Bicarbonate Tab) 1,300 mg PO BID [facility] Last Admin: 03/22/18 17:42 Dose: 1,300 mg Tamsulosin HCl (Flomax) 0.4 mg PO DAILY [facility] Last Admin: 03/22/18 09:33 Dose: 0.4 mg Trazodone HCl (Desyrel) 50 mg PO [facility] Last Admin: 03/21/18 21:53 Dose: 50 mg - Labs Labs: 03/21/18 07:14 03/21/18 07:14 PT 11.8 SECONDS (9.7-12.2) 03/19/18 02:14 INR 1.1 03/19/18 02:14 APTT 33 SECONDS (21-34) 03/19/18 02:14 - Constitutional Appears: Confused, Cachectic, Chronically Ill - Head Exam Head Exam: NORMOCEPHALIC - Eye Exam Eye Exam: absent: Scleral icterus - ENT Exam ENT Exam: Mucous Membranes Dry, Normal External Ear Exam - Neck Exam Neck Exam: absent: Lymphadenopathy - Respiratory Exam Respiratory Exam: Decreased Breath Sounds - Cardiovascular Exam Cardiovascular Exam: REGULAR RHYTHM - GI/Abdominal Exam GI & Abdominal Exam: Distended, Soft - Rectal Exam Rectal Exam: Deferred - Exam Exam: NORMAL INSPECTION - Extremities Exam Extremities Exam: absent: Pedal Edema - Back Exam Back Exam: absent: CVA tenderness (L), CVA tenderness (R) Assessment and Plan - Assessment and Plan (Free Text) Assessment: cont iv rx renal evval in progress
[2018-03-22] MEDS: Insulin Detemir 100 units/ml Vial (Levemir) SC SCH ×2 (21:06→21:36)
[2018-03-23] MEDS: Piperacillin/Tazobact 3.375 GM in Sodium Chloride 100 ML IVPB SCH ×3 (04:00→20:10)
[2018-03-23] MEDS ORDERED: Dextrose 50% VIAL Inj (50 ml) IV ONE (06:24)
[2018-03-23] MEDS ORDERED: Dextrose 50% SYRINGE Inj (50 ml) IV STA (06:30)
[2018-03-23] MEDS: (Novolog) Insulin Aspart, Recombinant 100 u/ml 10 ml vial SC SCH ×5 (07:49→17:11)
[2018-03-23 08:08] LABS: ALB/GLOB RATIO 0.8 (1.0-2.1); ALBUMIN 2.5 g/dL (3.5-5.0); ALT/SGPT 54 U/L (21-72); AST/SGOT 46 U/L (17-59); BLOOD UREA NITROGEN 13 mg/dL (9-20); CALCIUM 8.1 mg/dl (8.6-10.4); GFR NON-AFRICAN AMERICAN 60
--- NOTE | 2018-03-23 08:18 | PN ---
DATE: 03/22/2018 ENDOCRINOLOGY FOLLOWUP NOTE ROOM: 559 SUBJECTIVE: This is a 72 year-old male with recent readmission for persistent pneumonitis and currently undergoing IV antibiotic management and is also being followed closely for metabolic management as noted. His oral intake remains quite variable as per the nursing staff as noted. LABORATORY DATA: His glycemic fluctuations are also persistent but improved and the glucose values overnight have ranged from 99 to 178 and 251 mg/dL. His chemistry showed a BUN of 24, sodium 139, potassium 3.5, chloride 106, CO2 of 23, glucose 112, and creatinine 1.4. PLAN: At this time, we will continue once again the very low dose basal and bolus insulin regimen to allow for dose equilibration. We will obtain serial chemistries and supplement accordingly as needed. We will follow. Myrna Sheffield MD
[2018-03-23] MEDS: Multiple Vitamins Tab PO SCH (09:23)
[2018-03-23] MEDS: Pantoprazole 40 mg EC Tab PO SCH (09:23)
--- NOTE | 2018-03-23 09:37 | CP.PCM.CON ---
<Alex Cooper - Last Filed: 03/23/18 09:41> History of Present Illness - History of Present Illness History of Present Illness: PGY6 GI Fellow Consult Note Patient is a 72yo male with PMHx significant for uncontroleld DM with multiple episodes of DKA, recently episode of multifocal PNA on broad spectrum antibiotics, CKD, CAD, CHF, HTN, HLD, PUD who was admitted one day after discharge for agitation, altered mentation and fever. Our service has been consulted for diarrhea. He was recently admitted for multifocal pneumonia and was on Moxifloxacin at that time. Upon returning home he continue to have fevers and again became altered and was brought back to the ED. Currently, ID, nephrolo gy and endocrinology are following and he is on Zosyn. Patient has been have loose stool for the last two days with 2-3 episodes daily per nursing documentation. The patient himself denies any complaints other than frequent loose stool. Currently, no abdominal pain, nausea, vomiting. Again, during this admission, patient was suddenly noted to be anemic without obvious blood loss and was transfused 2 units PRBCs with subsequent return to baseline. 12 point ROS negative other than stated above PMHx: See HPI PSHx: left shoulder torn ligament, right hip replacement, TURP, B/L inguinal hernia repair 04/2014 FHx: denies colon cancer Social: prior [id number] years(quit 30 years), heavy alcohol abuse for 20 years, endorsed sobriety for 30 years, denies illicit drug use Endo: Colon 07/13 - poor prep EGD 04/11 - fundic ulcer, LA B esophagitis Past Patient History - Infectious Disease Hx of Infectious Diseases: None - Tetanus Immunizations Tetanus Immunization: Unknown - Past Medical History & Family History Past Medical History?: Yes - Past Social History Smoking Status: Former Smoker - CARDIAC Hx Congestive Heart Failure: Yes Hx Hypercholesterolemia: Yes Hx Hypertension: Yes - PULMONARY Hx Pneumonia: Yes - NEUROLOGICAL Hx Dementia: Yes Hx Seizures: Yes (pt denies) - HEENT Hx HEENT Problems: Yes (LEFT EYE BLIND) Hx Cataracts: Yes (BILATERAL) Other/Comment: rt eye cataract sx - RENAL Hx Chronic Kidney Disease: Yes - ENDOCRINE/METABOLIC Hx Diabetes Mellitus Type 2: Yes - HEMATOLOGICAL/ONCOLOGICAL Hx Anemia: Yes - INTEGUMENTARY Hx Dermatological Problems: Yes Other/Comment: 03-03-18 HEALING SACRAL PRESSURE ULCER.SCARRED AREA MORE TO LEFT. - MUSCULOSKELETAL/RHEUMATOLOGICAL Hx Arthritis: Yes - GASTROINTESTINAL Hx Pancreatitis: Yes - GENITOURINARY/GYNECOLOGICAL Hx Genitourinary Disorders: Yes Hx Prostate Problems: Yes (R TURP for BPH) - PSYCHIATRIC Hx Substance Use: No - SURGICAL HISTORY Hx Surgeries: Yes Hx Cataract Extraction: Yes Hx Vascular Access Device: Yes Other/Comment: hemorrhoidectomy - ANESTHESIA Hx Anesthesia: Yes Hx Anesthesia Reactions: No Hx Malignant Hyperthermia: No Meds Allergies/Adverse Reactions: Allergies Allergy/AdvReac Type Severity Reaction Status Date / Time No Known Allergies Allergy Verified 03/08/18 17:18 - Medications Medications: Current Medications Amlodipine Besylate (Norvasc) 10 mg PO DAILY [facility] Last Admin: 03/23/18 09:23 Dose: 10 mg Aspirin (Ecotrin) 81 mg PO DAILY [facility] Last Admin: 03/23/18 09:23 Dose: 81 mg Ergocalciferol (Drisdol 50,000 Intl Units Cap) 1 cap PO Q7D [facility] Last Admin: 03/20/18 14:19 Dose: 1 cap Ferrous Sulfate (Feosol) 325 mg PO TID [facility] Last Admin: 03/23/18 09:23 Dose: 325 mg Furosemide (Lasix) 20 mg IVP ONCE PRN PRN Reason: Other Last Admin: 03/20/18 20:07 Dose: 20 mg Furosemide (Lasix) 20 mg PO DAILY [facility] Last Admin: 03/23/18 09:24 Dose: 20 mg Haloperidol (Haldol) 1 mg PO BID [facility] Last Admin: 03/23/18 09:23 Dose: 1 mg Piperacillin Sod/Tazobactam (Sod 3.375 gm/ Sodium Chloride) 100 mls @ 200 mls/hr IVPB Q8H [facility]; Protocol Last Admin: 03/23/18 04:00 Dose: 200 mls/hr Ibuprofen (Motrin Tab) 600 mg PO Q8H PRN PRN Reason: Pain, moderate (4-7) Last Admin: 03/22/18 21:34 Dose: 600 mg Insulin Aspart (Novolog) 3 unit SC AC [facility] Last Admin: 03/22/18 17:41 Dose: 3 unit Insulin Aspart (Novolog) 0 unit SC ACHS [facility] Last Admin: 03/23/18 07:49 Dose: Not Given Insulin Detemir (Levemir) 6 unit SC [facility] Last Admin: 03/22/18 21:36 Dose: 6 unit Insulin Detemir (Levemir) 6 unit SC [facility] Last Admin: 03/22/18 21:06 Dose: Not Given Mirtazapine (Remeron) 15 mg PO [facility] Last Admin: 03/22/18 21:35 Dose: 15 mg Multivitamins (Hexavitamin) 1 tab PO DAILY [facility] Last Admin: 03/23/18 09:23 Dose: 1 tab Pantoprazole Sodium (Protonix Ec Tab) 40 mg PO DAILY [facility] Last Admin: 03/23/18 09:23 Dose: 40 mg Rosuvastatin Calcium (Crestor) 5 mg PO [facility] Last Admin: 03/22/18 21:35 Dose: 5 mg Sodium Bicarbonate (Sodium Bicarbonate Tab) 1,300 mg PO BID [facility] Last Admin: 03/23/18 09:23 Dose: 1,300 mg Tamsulosin HCl (Flomax) 0.4 mg PO DAILY [facility] Last Admin: 03/23/18 09:23 Dose: 0.4 mg Trazodone HCl (Desyrel) 50 mg PO [facility] Last Admin: 03/22/18 21:35 Dose: 50 mg Physical Exam - Constitutional Appears: Non-toxic, No Acute Distress - Eye Exam Eye Exam: EOMI, PERRL - ENT Exam ENT Exam: Mucous Membranes Moist - Respiratory Exam Respiratory Exam: Decreased Breath Sounds, Rales. absent: Clear to Auscultation Bilateral, Rhonchi, Wheezes - Cardiovascular Exam Cardiovascular Exam: RRR, +S1, +S2 - GI/Abdominal Exam GI & Abdominal Exam: Normal Bowel Sounds, Soft. absent: Distended, Firm, Guarding, Organomegaly, Rigid, Tenderness - Extremities Exam Extremities exam: Positive for: normal inspection. Negative for: pedal edema - Neurological Exam Neurological exam: Alert, Oriented x3 - Psychiatric Exam Psychiatric exam: Normal Affect, Normal Mood - Skin Skin Exam: Dry, Warm Results - Vital Signs Recent Vital Signs: Last Vital Signs Temp 97.5 F L 03/23/18 07:43 Pulse 53 L 03/23/18 07:43 Resp 18 03/23/18 07:43 BP 172/84 H 03/23/18 09:24 Pulse Ox 100 03/23/18 07:43 - Labs Result Diagrams: 03/21/18 07:14 03/23/18 07:44 Labs: Laboratory Results - last 24 hr 03/23/18 07:44 Sodium 138 Potassium 4.4 Chloride 105 Carbon Dioxide 22 Anion Gap 15 BUN 13 Creatinine 1.2 Est GFR ( Amer) > 60 Est GFR (Non-Af Amer) 60 Random Glucose 141 H Calcium 8.1 L Total Bilirubin 1.0 AST 46 ALT 54 Alkaline Phosphatase 255 H D Total Protein 5.8 L Albumin 2.5 L Globulin 3.2 Albumin/Globulin Ratio 0.8 L Assessment & Plan - Assessment and Plan (Free Text) Assessment: Patient is a 72yo male with PMHx significant for uncontroleld DM with multiple episodes of DKA, recently episode of multifocal PNA on broad spectrum antibiotics, CKD, CAD, CHF, HTN, HLD, PUD who was admitted one day after discharge for agitation, altered mentation and fever -Diarrhea -Anemia -Pneumonia -DM Plan: -ID following for pneumonia - currently on Zosyn -Endocrinology following for poorly controlled DM -Check stool for culture, C diff -Avoid any laxative therapy -Given sudden anemia again this admission, recommend liquid diet and bowel cleanse as tolerated given ongoing symptoms over the next 48 hours with repeat colonoscopy to follow -IVF as needed - Date & Time Date: 03/23/18 Time: 08:00 <Rubén Rdz - Last Filed: 03/23/18 14:46> Meds - Medications Medications: Current Medications Amlodipine Besylate (Norvasc) 10 mg PO DAILY [facility] Last Admin: 03/23/18 09:23 Dose: 10 mg Aspirin (Ecotrin) 81 mg PO DAILY [facility] Last Admin: 03/23/18 09:23 Dose: 81 mg Ergocalciferol (Drisdol 50,000 Intl Units Cap) 1 cap PO Q7D [facility] Last Admin: 03/20/18 14:19 Dose: 1 cap Ferrous Sulfate (Feosol) 325 mg PO TID [facility] Last Admin: 03/23/18 13:09 Dose: 325 mg Furosemide (Lasix) 20 mg IVP ONCE PRN PRN Reason: Other Last Admin: 03/20/18 20:07 Dose: 20 mg Furosemide (Lasix) 20 mg PO DAILY [facility] Last Admin: 03/23/18 09:24 Dose: 20 mg Haloperidol (Haldol) 1 mg PO BID [facility] Last Admin: 03/23/18 09:23 Dose: 1 mg Hydralazine HCl (Apresoline) 50 mg PO BID [facility] Last Admin: 03/23/18 11:50 Dose: 50 mg Piperacillin Sod/Tazobactam (Sod 3.375 gm/ Sodium Chloride) 100 mls @ 200 mls/hr IVPB Q8H [facility]; Protocol Last Admin: 03/23/18 12:43 Dose: 200 mls/hr Ibuprofen (Motrin Tab) 600 mg PO Q8H PRN PRN Reason: Pain, moderate (4-7) Last Admin: 03/22/18 21:34 Dose: 600 mg Insulin Aspart (Novolog) 3 unit SC AC [facility] Last Admin: 03/23/18 12:43 Dose: 3 unit Insulin Aspart (Novolog) 0 unit SC ACHS [facility] Last Admin: 03/23/18 12:22 Dose: Not Given Insulin Detemir (Levemir) 3 unit SC [facility] Mirtazapine (Remeron) 15 mg PO HS [facility] Last Admin: 03/22/18 21:35 Dose: 15 mg Multivitamins (Hexavitamin) 1 tab PO DAILY [facility] Last Admin: 03/23/18 09:23 Dose: 1 tab Pantoprazole Sodium (Protonix Ec Tab) 40 mg PO DAILY [facility] Last Admin: 03/23/18 09:23 Dose: 40 mg Rosuvastatin Calcium (Crestor) 5 mg PO HS [facility] Last Admin: 03/22/18 21:35 Dose: 5 mg Sodium Bicarbonate (Sodium Bicarbonate Tab) 1,300 mg PO BID [facility] Last Admin: 03/23/18 09:23 Dose: 1,300 mg Tamsulosin HCl (Flomax) 0.4 mg PO DAILY [facility] Last Admin: 03/23/18 09:23 Dose: 0.4 mg Trazodone HCl (Desyrel) 50 mg PO HS [facility] Last Admin: 03/22/18 21:35 Dose: 50 mg Results - Vital Signs Recent Vital Signs: Last Vital Signs Temp 97.5 F L 03/23/18 07:43 Pulse 76 03/23/18 11:40 Resp 18 03/23/18 07:43 BP 158/85 H 03/23/18 11:40 Pulse Ox 100 03/23/18 07:43 - Labs Result Diagrams: 03/23/18 10:40 03/23/18 07:44 Labs: Laboratory Results - last 24 hr 03/19/18 03/21/18 03/21/18 17:02 06:16 06:18 WBC RBC Hgb Hct MCV MCH MCHC RDW Plt Count MPV Sodium Potassium Chloride Carbon Dioxide Anion Gap BUN Creatinine Est GFR ( Amer) Est GFR (Non-Af Amer) POC Glucose (mg/dL) < 20 L* < 20 L* Random Glucose Calcium Total Bilirubin AST ALT Alkaline Phosphatase Total Protein Albumin Globulin Albumin/Globulin Ratio PTH Intact Whole Molec 385 H 03/21/18 03/21/18 03/21/18 06:46 10:56 16:54 WBC RBC Hgb Hct MCV MCH MCHC RDW Plt Count MPV Sodium Potassium Chloride Carbon Dioxide Anion Gap BUN Creatinine Est GFR ( Amer) Est GFR (Non-Af Amer) POC Glucose (mg/dL) 121 H 251 H 300 H Random Glucose Calcium Total Bilirubin AST ALT Alkaline Phosphatase Total Protein Albumin Globulin Albumin/Globulin Ratio PTH Intact Whole Molec 03/21/18 03/22/18 03/22/18 21:25 02:14 02:16 WBC RBC Hgb Hct MCV MCH MCHC RDW Plt Count MPV Sodium Potassium Chloride Carbon Dioxide Anion Gap BUN Creatinine Est GFR ( Amer) Est GFR (Non-Af Amer) POC Glucose (mg/dL) 176 H 51 L 52 L Random Glucose Calcium Total Bilirubin AST ALT Alkaline Phosphatase Total Protein Albumin Globulin Albumin/Globulin Ratio PTH Intact Whole Molec 03/22/18 03/22/18 03/22/18 02:36 02:37 03:07 WBC RBC Hgb Hct MCV MCH MCHC RDW Plt Count MPV Sodium Potassium Chloride Carbon Dioxide Anion Gap BUN Creatinine Est GFR ( Amer) Est GFR (Non-Af Amer) POC Glucose (mg/dL) 46 L 42 L 153 H Random Glucose Calcium Total Bilirubin AST ALT Alkaline Phosphatase Total Protein Albumin Globulin Albumin/Globulin Ratio PTH Intact Whole Molec 03/22/18 03/22/18 03/22/18 06:25 06:26 07:01 WBC RBC Hgb Hct MCV MCH MCHC RDW Plt Count MPV Sodium Potassium Chloride Carbon Dioxide Anion Gap BUN Creatinine Est GFR ( Amer) Est GFR (Non-Af Amer) POC Glucose (mg/dL) 65 51 L 128 H Random Glucose Calcium Total Bilirubin AST ALT Alkaline Phosphatase Total Protein Albumin Globulin Albumin/Globulin Ratio PTH Intact Whole Molec 03/22/18 03/22/18 03/22/18 11:43 16:57 21:01 WBC RBC Hgb Hct MCV MCH MCHC RDW Plt Count MPV Sodium Potassium Chloride Carbon Dioxide Anion Gap BUN Creatinine Est GFR ( Amer) Est GFR (Non-Af Amer) POC Glucose (mg/dL) 111 H 246 H 239 H Random Glucose Calcium Total Bilirubin AST ALT Alkaline Phosphatase Total Protein Albumin Globulin Albumin/Globulin Ratio PTH Intact Whole Molec 03/23/18 03/23/18 03/23/18 06:10 06:11 06:38 WBC RBC Hgb Hct MCV MCH MCHC RDW Plt Count MPV Sodium Potassium Chloride Carbon Dioxide Anion Gap BUN Creatinine Est GFR ( Amer) Est GFR (Non-Af Amer) POC Glucose (mg/dL) 29 L* 30 L* 196 H Random Glucose Calcium Total Bilirubin AST ALT Alkaline Phosphatase Total Protein Albumin Globulin Albumin/Globulin Ratio PTH Intact Whole Molec 03/23/18 03/23/18 03/23/18 07:44 10:40 11:05 WBC 7.4 RBC 4.14 L Hgb 11.7 L Hct 34.6 L MCV 83.5 MCH 28.4 MCHC 34.0 RDW 18.4 H Plt Count 334 MPV 8.0 Sodium 138 Potassium 4.4 Chloride 105 Carbon Dioxide 22 Anion Gap 15 BUN 13 Creatinine 1.2 Est GFR ( Amer) > 60 Est GFR (Non-Af Amer) 60 POC Glucose (mg/dL) 253 H Random Glucose 141 H Calcium 8.1 L Total Bilirubin 1.0 AST 46 ALT 54 Alkaline Phosphatase 255 H D Total Protein 5.8 L Albumin 2.5 L Globulin 3.2 Albumin/Globulin Ratio 0.8 L PTH Intact Whole Molec Attending/Attestation - Attestation I have personally seen and examined this patient.: Yes I have fully participated in the care of the patient.: Yes I have reviewed all pertinent clinical information: Yes Notes (Text): 03/23/18 14:40 I have seen and examined patient with GI fellow. Agree with above documentation with the following additions. In brief, this is a 72 year old male with history labile DM, HCV, CKD, CHF, who presents to hospital with complaint of altered mental status and fever. He was recently hospitalized for treatment of pneum onia, GI called for evaluation of diarrhea. He has been having loose, non- bloody bowel movements for the past 2-3 days with multiple episodes daily. He denies associated abdominal pain, nausea, vomiting, rectal bleeding, or weight loss. During prior admission he was noted to have sudden worsening anemia requiring PRBC transfusion and again notes similar occurrence on this admission. He had an EGD in March 2017 which showed esophagitis and gastric ulcer, colonoscopy in June 2017 which showed poor bowel preparation. labile DM HCV CKD CHF Anemia Diarrhea, fever - Liquid diet as tolerated - Obtain stool studies (culture, c-difficile) - H/H stable s/p PRBC transfusion, continue to monitor - Continue with antibiotic therapy, follow up ID recommendations - Given ongoing anemia and change in bowel habits along with prior suboptimal colonoscopy evaluation due to poor bowel preparation, would favor repeat colonoscopy evaluation, potentially for friday with two day bowel preparati on. Will continue to monitor patient clinical course.
[2018-03-23 10:59] LABS: HEMOGLOBIN 11.7 g/dL (12.0-18.0); MEAN CELL VOLUME 83.5 fL (80.0-94.0); MEAN CORPUSCULAR HEMOGLOBIN 28.4 pg (27.0-31.0); RBC 4.14 Mil/uL (4.40-5.90); RED CELL DISTRIBUTION WIDTH 18.4 % (11.5-14.5); WHITE BLOOD COUNT 7.4 K/uL (4.8-10.8)
--- NOTE | 2018-03-23 12:25 | PN ---
DATE: 03/19/2018 SUBJECTIVE: I saw him resting comfortably in bed. He slept fairly well. watching him. He has no complaints of chest pain or shortness of breath. He did tell me that he has some diarrhea and that is persisting. PHYSICAL EXAMINATION: VITAL SIGNS: He has 97.8 temp, 64 pulse, 151/91 blood pressure, 20 respiratory rate, and 99% O2 saturation on room air. HEENT: Head is atraumatic, normocephalic. HEART: Regular rate. LUNGS: Clear to auscultation. ABDOMEN: Soft and nontender. Positive bowel sounds. No guarding. No rebound. No CVA tenderness. EXTREMITIES: No edema. PLAN: Plan is to go to subacute rehab into long-term care, hoping for [facility]. He has been seen by Renal, Endocrinology, and Infectious Disease. LABORATORY DATA: His labs showed 10 white count, 12 hemoglobin, 36.4 hematocrit with 308 platelets. He has 139 sodium, potassium 3.5, BUN is 24, creatinine 1.4, GFR is 60, sugar is 112, calcium is 8.3. Total bilirubin is 1, AST is 23, ALT is 44, alk phos is 209, total protein is 5.7. I added GI consult for his diarrhea. I was told he was on Procrit, but I do not see it here. Because his hemoglobin is 12, he does not need that. Waiting for social service assistant and case management to arrange for subacute rehab into long-term care, maybe [facility] will be a good place for him. His cannot take care of him anymore. He is still on Zosyn as per Infectious Disease, Renal, and GI. Continue aggressive treatment and care on Ferny Davidson. He has high blood sugars and low blood sugars. He has high potassium and low potassium. He has right infiltrate, anemia, acute kidney injury. No diarrhea. Zohaib Morgan DO MTDD
--- NOTE | 2018-03-23 14:38 | CP.PCM.PN ---
Subjective - Date & Time of Evaluation Date of Evaluation: 03/23/18 Time of Evaluation: 11:00 - Subjective Subjective: Nephrology Consultation Note: Assessment: stable Acute Kidney Injury (N17.9) HAGMA with ketoacidosis and hyperkalemia Pneumonia, AMS with delirium Uncontrolled diabetes mellitus with hypoglycemia and hyperglycemia Diabetic chronic Kidney Disease (E11.22) Hypertensive Chronic Kidney Disease (I12.9) Chronic Kidney Disease (N18.3) Stage 3 with ? mg proteinuria (R80.9) likely due to DM Anemia (D64.9), Vit D def with Secondary Hyperparathyroidism (E21.1), HTN (I12.9) BPH, diabetic neuropathy, chronic pancreatitis gastric ulcer, hx of etoh and smoking in past Vit D def Plan No acute need for renal replacement therapy at this time. Hypertension control with meds as ordered. Patient not on ACEI/ARB due to KHALIDA tendency and hyperkalemia. added hydralazine Monitor Input/Output, daily weights and renal function with basic metabolic panel added sodium bicarbonate 1300 mg 2 times a day, weekly Vit D continue with iron TID multivitamin supplements. PRBC as needed. continue with Flomax continue with lasix low K diet. kayexylate as needed ID and endocrine following work up as ordered Dose meds/antibiotics for improved GFR. Avoid nephrotoxins/NSAIDs Glycemic control Further work up/management as per primary team Thanks for allowing me to participate in care of your patient. Will follow patient with you. Please call if any Qs. had d/w team Dr Juan Diego Light Office: [phone] reason for consult: KHALIDA, CKD HPI:Pt is a 72 M with hx of uncontrolled diabetes Mellitus (30 years) with retinopathy, hypertension (15-20 years), CKD 3, s/p Right total hip replacement, gout, chronic pancreatitis, gastric ulcer with hiatal hernia with multiple admissions to hospital with hypo and hyperglycemia/DKA, recently for PNA, AMS with delirium ? dementia came back with behavioral changes. seen by psych Renal consult for kidney disease management pt has uncontrolled DM with sugars ranging from 20 to 500+ ROS: denies CP/SOB. denies nausea and abdomen pain.waiting to go to rehab Physical Examination: General Appearance: in no acute respiratory distress, co-operative Vitals reviewed and noted as below Head; Atraumatic, normocephalic ENT: no ulcers no thrush. Tongue is midline. Oropharynx: no rash or ulcers. EYES: Pupils are equal, round and reactive to light accommodation. Eye muscles and extraocular movement intact. Sclera is anicteric. Neck; supple no lymphadenopathy, no thyromegaly or bruit Lungs: Normal respiratory rate/effort. Breath sounds bilateral equal and clear Heart: Normal rate. s1s2 normal. No rub or gallop. SM at LSB+. loud S2 Extremities: no edema. No varicose veins Neurological: Patient is AO x 3 no focal deficit Skin: Warm and dry. Normal turgor. No rash. Palpitation: Normal elasticity for age Abdomen: Abdomen is soft. Bowel sounds +. There is no abdominal tenderness, no guarding/rigidity no organomegaly Psych: normal affect/mood and good insight MSK: no joint tenderness or swelling. Digits and nails normal, no deformity : kidney or bladder not palpable Labs/imaging reviewed. Past medical history, past surgical history, family history, social history, allergy reviewed and noted as below Family hx: no hx of CKD. Rest non-contributory Work up: 06/11/2017: SPEP neg [place]/lambda ratio normal although faint free lambda in JANI renal sono 7 mm cyst normal LVEF on echo Objective - Vital Signs/Intake and Output Vital Signs (last 24 hours): Temp Pulse Resp BP Pulse Ox 97.5 F L 76 18 158/85 H 100 03/23/18 07:43 03/23/18 11:40 03/23/18 07:43 03/23/18 11:40 03/23/18 07:43 Intake and Output: 03/23/18 03/23/18 06:59 18:59 Intake Total 580 Output Total 900 Balance -320 - Medications Medications: Current Medications Amlodipine Besylate (Norvasc) 10 mg PO DAILY [facility] Last Admin: 03/23/18 09:23 Dose: 10 mg Aspirin (Ecotrin) 81 mg PO DAILY [facility] Last Admin: 03/23/18 09:23 Dose: 81 mg Ergocalciferol (Drisdol 50,000 Intl Units Cap) 1 cap PO Q7D [facility] Last Admin: 03/20/18 14:19 Dose: 1 cap Ferrous Sulfate (Feosol) 325 mg PO TID [facility] Last Admin: 03/23/18 13:09 Dose: 325 mg Furosemide (Lasix) 20 mg IVP ONCE PRN PRN Reason: Other Last Admin: 03/20/18 20:07 Dose: 20 mg Furosemide (Lasix) 20 mg PO DAILY [facility] Last Admin: 03/23/18 09:24 Dose: 20 mg Haloperidol (Haldol) 1 mg PO BID [facility] Last Admin: 03/23/18 09:23 Dose: 1 mg Hydralazine HCl (Apresoline) 50 mg PO BID [facility] Last Admin: 03/23/18 11:50 Dose: 50 mg Piperacillin Sod/Tazobactam (Sod 3.375 gm/ Sodium Chloride) 100 mls @ 200 mls/hr IVPB Q8H [facility]; Protocol Last Admin: 03/23/18 12:43 Dose: 200 mls/hr Ibuprofen (Motrin Tab) 600 mg PO Q8H PRN PRN Reason: Pain, moderate (4-7) Last Admin: 03/22/18 21:34 Dose: 600 mg Insulin Aspart (Novolog) 3 unit SC AC [facility] Last Admin: 03/23/18 12:43 Dose: 3 unit Insulin Aspart (Novolog) 0 unit SC ACHS [facility] Last Admin: 03/23/18 12:22 Dose: Not Given Insulin Detemir (Levemir) 3 unit SC [facility] Mirtazapine (Remeron) 15 mg PO HS [facility] Last Admin: 03/22/18 21:35 Dose: 15 mg Multivitamins (Hexavitamin) 1 tab PO DAILY [facility] Last Admin: 03/23/18 09:23 Dose: 1 tab Pantoprazole Sodium (Protonix Ec Tab) 40 mg PO DAILY [facility] Last Admin: 03/23/18 09:23 Dose: 40 mg Rosuvastatin Calcium (Crestor) 5 mg PO HS [facility] Last Admin: 03/22/18 21:35 Dose: 5 mg Sodium Bicarbonate (Sodium Bicarbonate Tab) 1,300 mg PO BID [facility] Last Admin: 03/23/18 09:23 Dose: 1,300 mg Tamsulosin HCl (Flomax) 0.4 mg PO DAILY [facility] Last Admin: 03/23/18 09:23 Dose: 0.4 mg Trazodone HCl (Desyrel) 50 mg PO [facility] Last Admin: 03/22/18 21:35 Dose: 50 mg - Labs Labs: 03/23/18 10:40 03/23/18 07:44 PT 11.8 SECONDS (9.7-12.2) 03/19/18 02:14 INR 1.1 03/19/18 02:14 APTT 33 SECONDS (21-34) 03/19/18 02:14
--- NOTE | 2018-03-23 17:44 | CARD ---
APPROVED REPORT Date of service: 03/19/2018 EKG Measurement Heart [id number] <Conclusion> Normal sinus rhythm Poor R wave progression Precordial leads misplacement Please repeat. Abnormal ECG
[2018-03-23] MEDS ORDERED: Insulin Detemir 100 units/ml Vial (Levemir) SC SCH (22:00)
--- NOTE | 2018-03-24 01:06 | PN ---
DATE: 03/23/2018 LOCATION: Room 559. SUBJECTIVE: This is a 72-year-old male with ongoing management for acute pneumonitis and concomitant congestive heart failure and is now being followed closely for metabolic management. His glycemic levels are once again fluctuating because of the variability of his oral intake as noted thereof. His glucose levels overnight dropped to 30 units subcu early this morning as noted and the repeat glucose values have ranged from 196 to 253 mg/dL. LABORATORY DATA: His chemistry showed a BUN of 13, sodium 138, potassium 4.4, chloride 105, CO2 of 22, glucose 141 and creatinine 1.2. PLAN: At this time, we will modify once again his basal and bolus insulin regimen and lower the Levemir to 3 units subcu at bedtime daily, to start tonight. We will continue the low-dose NovoLog given pre-prandially as a dose of 3 units subcu t.i.d. before meals as ordered. We will titrate incrementally as indicated to optimize metabolic control. We will obtain serial chemistries and supplement accordingly as needed. We will follow. Myrna Sheffield MD
[2018-03-24] MEDS: Piperacillin/Tazobact 3.375 GM in Sodium Chloride 100 ML IVPB SCH ×3 (02:56→18:30)
[2018-03-24 07:05] LABS: HEMOGLOBIN 12.3 g/dL (12.0-18.0); MEAN CELL VOLUME 83.1 fL (80.0-94.0); MEAN CORPUSCULAR HEMOGLOBIN 27.6 pg (27.0-31.0); MEAN CORPUSCULAR HGB CONC 33.2 g/dL (33.0-37.0); RBC 4.48 Mil/uL (4.40-5.90); RED CELL DISTRIBUTION WIDTH 18.7 % (11.5-14.5); WHITE BLOOD COUNT 6.6 K/uL (4.8-10.8)
--- NOTE | 2018-03-24 07:22 | CP.PCM.PN ---
<Alex Cooper - Last Filed: 03/24/18 08:00> Subjective - Date & Time of Evaluation Date of Evaluation: 03/24/18 Time of Evaluation: 07:00 - Subjective Subjective: PGY6 GI Fellow Progress Note Patient seen and examined bedside this morning. Complains of diffuse abdominal pain and cramping overnight and in to this morning. No nausea, vomiting. Does improve with defecation. Continues to have soft stool, 2-3 times yesterday, once overnight. 12 system ROS performed and negative except where stated Objective - Vital Signs/Intake and Output Vital Signs (last 24 hours): Temp Pulse Resp BP Pulse Ox 97.6 F 96 H 18 149/97 H 98 03/24/18 00:34 03/24/18 00:34 03/24/18 00:34 03/24/18 00:34 03/24/18 00:34 - Medications Medications: Current Medications Amlodipine Besylate (Norvasc) 10 mg PO DAILY [facility] Last Admin: 03/23/18 09:23 Dose: 10 mg Aspirin (Ecotrin) 81 mg PO DAILY [facility] Last Admin: 03/23/18 09:23 Dose: 81 mg Ergocalciferol (Drisdol 50,000 Intl Units Cap) 1 cap PO Q7D [facility] Last Admin: 03/20/18 14:19 Dose: 1 cap Ferrous Sulfate (Feosol) 325 mg PO TID [facility] Last Admin: 03/23/18 17:11 Dose: 325 mg Furosemide (Lasix) 20 mg IVP ONCE PRN PRN Reason: Other Last Admin: 03/20/18 20:07 Dose: 20 mg Furosemide (Lasix) 20 mg PO DAILY [facility] Last Admin: 03/23/18 09:24 Dose: 20 mg Haloperidol (Haldol) 1 mg PO BID [facility] Last Admin: 03/23/18 17:11 Dose: 1 mg Hydralazine HCl (Apresoline) 50 mg PO BID [facility] Last Admin: 03/23/18 17:11 Dose: 50 mg Piperacillin Sod/Tazobactam (Sod 3.375 gm/ Sodium Chloride) 100 mls @ 200 mls/hr IVPB Q8H [facility]; Protocol Last Admin: 03/24/18 02:56 Dose: 200 mls/hr Ibuprofen (Motrin Tab) 600 mg PO Q8H PRN PRN Reason: Pain, moderate (4-7) Last Admin: 03/22/18 21:34 Dose: 600 mg Insulin Aspart (Novolog) 3 unit SC AC [facility] Last Admin: 03/23/18 17:11 Dose: 3 unit Insulin Aspart (Novolog) 0 unit SC ACHS [facility] Last Admin: 03/23/18 16:47 Dose: Not Given Insulin Detemir (Levemir) 3 unit SC HS [facility] Last Admin: 03/23/18 21:08 Dose: 3 units Mirtazapine (Remeron) 15 mg PO HS [facility] Last Admin: 03/23/18 21:08 Dose: 15 mg Multivitamins (Hexavitamin) 1 tab PO DAILY [facility] Last Admin: 03/23/18 09:23 Dose: 1 tab Pantoprazole Sodium (Protonix Ec Tab) 40 mg PO DAILY [facility] Last Admin: 03/23/18 09:23 Dose: 40 mg Rosuvastatin Calcium (Crestor) 5 mg PO [facility] Last Admin: 03/23/18 21:08 Dose: 5 mg Sodium Bicarbonate (Sodium Bicarbonate Tab) 1,300 mg PO BID [facility] Last Admin: 03/23/18 17:11 Dose: 1,300 mg Tamsulosin HCl (Flomax) 0.4 mg PO DAILY [facility] Last Admin: 03/23/18 09:23 Dose: 0.4 mg Tramadol HCl (Ultram) 50 mg PO TID PRN PRN Reason: PAIN, SEVERE 8-10 Last Admin: 03/23/18 20:05 Dose: 50 mg Trazodone HCl (Desyrel) 50 mg PO [facility] Last Admin: 03/23/18 21:08 Dose: 50 mg - Labs Labs: 03/24/18 06:36 03/23/18 07:44 PT 11.8 SECONDS (9.7-12.2) 03/19/18 02:14 INR 1.1 03/19/18 02:14 APTT 33 SECONDS (21-34) 03/19/18 02:14 - Constitutional Appears: Non-toxic, No Acute Distress - Eye Exam Eye Exam: EOMI, PERRL - ENT Exam ENT Exam: Mucous Membranes Moist - Respiratory Exam Respiratory Exam: Clear to Ausculation Bilateral. absent: Rales, Rhonchi, Wheezes - Cardiovascular Exam Cardiovascular Exam: RRR, +S1, +S2 - GI/Abdominal Exam GI & Abdominal Exam: Soft, Tenderness (diffuse, minimal), Normal Bowel Sounds. absent: Distended, Firm, Guarding, Rigid, Organomegaly - Extremities Exam Extremities Exam: Normal Inspection. absent: Pedal Edema - Neurological Exam Neurological Exam: Alert, Awake, Oriented x3 - Psychiatric Exam Psychiatric exam: Normal Affect, Normal Mood - Skin Skin Exam: Dry, Warm Assessment and Plan - Assessment and Plan (Free Text) Assessment: Patient is a 72yo male with PMHx significant for uncontroleld DM with multiple episodes of DKA, recently episode of multifocal PNA on broad spectrum antibiotics, CKD, CAD, CHF, HTN, HLD, PUD who was admitted one day after discharge for agitation, altered mentation and fever -Diarrhea -Anemia -Pneumonia -DM -Prior HCV exposure and clearance -? Chronic pancreatitis Plan: -Patient having 2-3 soft BM daily -C diff negative, culture pending -Possibly adverse effect of prolonged/current antibiotic use to treat pneumonia -Other considerations include relation to questionable chronic pancreatitis - pancreatic insufficiency -ID following for pneumonia - currently on Zosyn -Endocrinology following for poorly controlled DM -Of note, HCV Ab + on prior admission; however, HCV Viral load qual negative for any circulating virus - suggests prior exposure and clearance -With ongoing anemia, suboptimal prep on prior colonoscopy due to poor preparati ons, recommend repeat study along with endoscopy - will initiate prep this morning -Bedside commode recommended -Maintain liquid diet <Rubén Rdz Y - Last Filed: 03/24/18 08:11> Objective - Vital Signs/Intake and Output Vital Signs (last 24 hours): Temp Pulse Resp BP Pulse Ox 97.7 F 74 18 153/93 H 100 03/24/18 07:52 03/24/18 07:52 03/24/18 07:52 03/24/18 07:52 03/24/18 07:52 - Medications Medications: Current Medications Amlodipine Besylate (Norvasc) 10 mg PO DAILY [facility] Last Admin: 03/23/18 09:23 Dose: 10 mg Aspirin (Ecotrin) 81 mg PO DAILY [facility] Last Admin: 03/23/18 09:23 Dose: 81 mg Bisacodyl (Dulcolax) 10 mg PO ONCE ONE Stop: 03/24/18 18:01 Bisacodyl (Dulcolax) 10 mg PO ONCE ONE Stop: 03/24/18 08:03 Ergocalciferol (Drisdol 50,000 Intl Units Cap) 1 cap PO Q7D [facility] Last Admin: 03/20/18 14:19 Dose: 1 cap Ferrous Sulfate (Feosol) 325 mg PO TID [facility] Last Admin: 03/23/18 17:11 Dose: 325 mg Furosemide (Lasix) 20 mg IVP ONCE PRN PRN Reason: Other Last Admin: 03/20/18 20:07 Dose: 20 mg Furosemide (Lasix) 20 mg PO DAILY [facility] Last Admin: 03/23/18 09:24 Dose: 20 mg Haloperidol (Haldol) 1 mg PO BID [facility] Last Admin: 03/23/18 17:11 Dose: 1 mg Hydralazine HCl (Apresoline) 50 mg PO BID [facility] Last Admin: 03/23/18 17:11 Dose: 50 mg Piperacillin Sod/Tazobactam (Sod 3.375 gm/ Sodium Chloride) 100 mls @ 200 mls/hr IVPB Q8H [facility]; Protocol Last Admin: 03/24/18 02:56 Dose: 200 mls/hr Ibuprofen (Motrin Tab) 600 mg PO Q8H PRN PRN Reason: Pain, moderate (4-7) Last Admin: 03/22/18 21:34 Dose: 600 mg Insulin Aspart (Novolog) 3 unit SC AC [facility] Last Admin: 03/23/18 17:11 Dose: 3 unit Insulin Aspart (Novolog) 0 unit SC ACHS [facility] Last Admin: 03/23/18 16:47 Dose: Not Given Insulin Detemir (Levemir) 3 unit SC HS [facility] Last Admin: 03/23/18 21:08 Dose: 3 units Mirtazapine (Remeron) 15 mg PO HS [facility] Last Admin: 03/23/18 21:08 Dose: 15 mg Multivitamins (Hexavitamin) 1 tab PO DAILY [facility] Last Admin: 03/23/18 09:23 Dose: 1 tab Pantoprazole Sodium (Protonix Ec Tab) 40 mg PO DAILY [facility] Last Admin: 03/23/18 09:23 Dose: 40 mg Polyethylene Glycol/Electrolytes (Golytely) 4,000 ml PO ONCE ONE Stop: 03/24/18 10:01 Rosuvastatin Calcium (Crestor) 5 mg PO [facility] Last Admin: 03/23/18 21:08 Dose: 5 mg Sodium Bicarbonate (Sodium Bicarbonate Tab) 1,300 mg PO BID [facility] Last Admin: 03/23/18 17:11 Dose: 1,300 mg Tamsulosin HCl (Flomax) 0.4 mg PO DAILY [facility] Last Admin: 03/23/18 09:23 Dose: 0.4 mg Tramadol HCl (Ultram) 50 mg PO TID PRN PRN Reason: PAIN, SEVERE 8-10 Last Admin: 03/23/18 20:05 Dose: 50 mg Trazodone HCl (Desyrel) 50 mg PO HS [facility] Last Admin: 03/23/18 21:08 Dose: 50 mg - Labs Labs: 03/24/18 06:36 03/23/18 07:44 PT 11.8 SECONDS (9.7-12.2) 03/19/18 02:14 INR 1.1 03/19/18 02:14 APTT 33 SECONDS (21-34) 03/19/18 02:14 Attending/Attestation - Attestation I have personally seen and examined this patient.: Yes I have fully participated in the care of the patient.: Yes I have reviewed all pertinent clinical information, including history, physical exam and plan: Yes Notes (Text): 03/24/18 08:08 I have seen and examined patient with GI fellow. No acute events overnight, he continues to report loose bowel movements with one episode during the evening. He also endorses crampy generalized abdominal pain and malaise. He denies nausea, vomiting, fever/chills. Tolerating PO liquids without difficulty. Labile DM Pneumonia CKD CHF Chronic pancreatitis Anemia Abdominal pain, diarrhea - Clear liquid diet as tolerated - H/H stable, s/p PRBC transfusion, continue to monitor - Given recurrent anemia requiring transfusion with incomplete prior colonoscopies, will favor endoscopic evaluation with EGD/colonoscopy tomorrow. Golytely bowel preparation today, NPO after midnight. - Continue with antibiotic therapy as per ID
[2018-03-24] MEDS ORDERED: Bisacodyl 5mg EC Tab PO ONE ×2 (08:02→18:00)
[2018-03-24] MEDS: (Novolog) Insulin Aspart, Recombinant 100 u/ml 10 ml vial SC SCH ×7 (08:08→21:28)
[2018-03-24 08:15] LABS: ALB/GLOB RATIO 0.8 (1.0-2.1); ALBUMIN 2.3 g/dL (3.5-5.0); ALT/SGPT 47 U/L (21-72); AST/SGOT 24 U/L (17-59); BLOOD UREA NITROGEN 8 mg/dL (9-20); CALCIUM 7.8 mg/dl (8.6-10.4); GFR NON-AFRICAN AMERICAN > 60
[2018-03-24] MEDS: Multiple Vitamins Tab PO SCH (09:58)
[2018-03-24] MEDS: Pantoprazole 40 mg EC Tab PO SCH (09:58)
[2018-03-24] MEDS ORDERED: Peg-Electrolyte Oral Soln 4L (Golytely) PO ONE (10:00)
--- NOTE | 2018-03-24 11:03 | CP.PCM.PN ---
Subjective - Date & Time of Evaluation Date of Evaluation: 03/24/18 Time of Evaluation: 11:03 - Subjective Subjective: Nephrology Consultation Note: Assessment: stable Acute Kidney Injury (N17.9) HAGMA with ketoacidosis and hyperkalemia Pneumonia, AMS with delirium Uncontrolled diabetes mellitus with hypoglycemia and hyperglycemia Diabetic chronic Kidney Disease (E11.22) Hypertensive Chronic Kidney Disease (I12.9) Chronic Kidney Disease (N18.3) Stage 3 with ? mg proteinuria (R80.9) likely due to DM Anemia (D64.9), Vit D def with Secondary Hyperparathyroidism (E21.1), HTN (I12.9) BPH, diabetic neuropathy, chronic pancreatitis gastric ulcer, hx of etoh and smoking in past Vit D def Plan No acute need for renal replacement therapy at this time. Hypertension control with meds as ordered. Patient not on ACEI/ARB due to KHALIDA tendency and hyperkalemia. added hydralazine Monitor Input/Output, daily weights and renal function with basic metabolic panel added sodium bicarbonate 650 mg 2 times a day, weekly Vit D continue with iron TID multivitamin supplements. PRBC as needed. continue with Flomax continue with lasix low K diet. kayexylate as needed ID and endocrine following work up as ordered Dose meds/antibiotics for improved GFR. Avoid nephrotoxins/NSAIDs Glycemic control Further work up/management as per primary team Thanks for allowing me to participate in care of your patient. Will follow patient with you. Please call if any Qs. had d/w team Dr Juan Diego Light Office: [phone] reason for consult: KHALIDA, CKD HPI:Pt is a 72 M with hx of uncontrolled diabetes Mellitus (30 years) with retinopathy, hypertension (15-20 years), CKD 3, s/p Right total hip replacement, gout, chronic pancreatitis, gastric ulcer with hiatal hernia with multiple admissions to hospital with hypo and hyperglycemia/DKA, recently for PNA, AMS with delirium ? dementia came back with behavioral changes. seen by psych Renal consult for kidney disease management pt has uncontrolled DM with sugars ranging from 20 to 500+ ROS: denies CP/SOB. denies nausea and improved abdomen pain.waiting to go to rehab. planned for endoscopic eval Physical Examination: General Appearance: in no acute respiratory distress, co-operative Vitals reviewed and noted as below Head; Atraumatic, normocephalic ENT: no ulcers no thrush. Tongue is midline. Oropharynx: no rash or ulcers. EYES: Pupils are equal, round and reactive to light accommodation. Eye muscles and extraocular movement intact. Sclera is anicteric. Neck; supple no lymphadenopathy, no thyromegaly or bruit Lungs: Normal respiratory rate/effort. Breath sounds bilateral equal and clear Heart: Normal rate. s1s2 normal. No rub or gallop. SM at LSB+. loud S2 Extremities: no edema. No varicose veins Neurological: Patient is AO x 3 no focal deficit Skin: Warm and dry. Normal turgor. No rash. Palpitation: Normal elasticity for age Abdomen: Abdomen is soft. Bowel sounds +. There is no abdominal tenderness, no guarding/rigidity no organomegaly Psych: normal affect/mood and good insight MSK: no joint tenderness or swelling. Digits and nails normal, no deformity : kidney or bladder not palpable Labs/imaging reviewed. Past medical history, past surgical history, family history, social history, allergy reviewed and noted as below Family hx: no hx of CKD. Rest non-contributory Work up: 06/11/2017: SPEP neg [place]/lambda ratio normal although faint free lambda in JANI renal sono 7 mm cyst normal LVEF on echo Objective - Vital Signs/Intake and Output Vital Signs (last 24 hours): Temp Pulse Resp BP Pulse Ox 97.7 F 74 18 148/88 100 03/24/18 07:52 03/24/18 07:52 03/24/18 07:52 03/24/18 09:58 03/24/18 07:52 - Medications Medications: Current Medications Amlodipine Besylate (Norvasc) 10 mg PO DAILY [facility] Last Admin: 03/24/18 09:58 Dose: 10 mg Aspirin (Ecotrin) 81 mg PO DAILY [facility] Last Admin: 03/24/18 09:57 Dose: 81 mg Bisacodyl (Dulcolax) 10 mg PO ONCE ONE Stop: 03/24/18 18:01 Ergocalciferol (Drisdol 50,000 Intl Units Cap) 1 cap PO Q7D [facility] Last Admin: 03/20/18 14:19 Dose: 1 cap Ferrous Sulfate (Feosol) 325 mg PO TID [facility] Last Admin: 10/30/18 09:58 Dose: 325 mg Furosemide (Lasix) 20 mg IVP ONCE PRN PRN Reason: Other Last Admin: 03/20/18 20:07 Dose: 20 mg Furosemide (Lasix) 20 mg PO DAILY [facility] Last Admin: 03/24/18 09:58 Dose: 20 mg Haloperidol (Haldol) 1 mg PO BID [facility] Last Admin: 03/24/18 09:58 Dose: 1 mg Hydralazine HCl (Apresoline) 50 mg PO BID [facility] Last Admin: 03/24/18 09:57 Dose: 50 mg Piperacillin Sod/Tazobactam (Sod 3.375 gm/ Sodium Chloride) 100 mls @ 200 mls/hr IVPB Q8H [facility]; Protocol Last Admin: 03/24/18 02:56 Dose: 200 mls/hr Ibuprofen (Motrin Tab) 600 mg PO Q8H PRN PRN Reason: Pain, moderate (4-7) Last Admin: 03/22/18 21:34 Dose: 600 mg Insulin Aspart (Novolog) 3 unit SC AC [facility] Last Admin: 03/24/18 08:54 Dose: 3 unit Insulin Aspart (Novolog) 0 unit SC ACHS [facility] Last Admin: 03/24/18 08:08 Dose: Not Given Insulin Detemir (Levemir) 3 unit SC HS [facility] Last Admin: 03/23/18 21:08 Dose: 3 units Mirtazapine (Remeron) 15 mg PO HS [facility] Last Admin: 03/23/18 21:08 Dose: 15 mg Multivitamins (Hexavitamin) 1 tab PO DAILY [facility] Last Admin: 03/24/18 09:58 Dose: 1 tab Pantoprazole Sodium (Protonix Ec Tab) 40 mg PO DAILY [facility] Last Admin: 03/24/18 09:58 Dose: 40 mg Rosuvastatin Calcium (Crestor) 5 mg PO HS [facility] Last Admin: 03/23/18 21:08 Dose: 5 mg Sodium Bicarbonate (Sodium Bicarbonate Tab) 650 mg PO BID [facility] Tamsulosin HCl (Flomax) 0.4 mg PO DAILY [facility] Last Admin: 03/24/18 09:58 Dose: 0.4 mg Tramadol HCl (Ultram) 50 mg PO TID PRN PRN Reason: PAIN, SEVERE 8-10 Last Admin: 03/23/18 20:05 Dose: 50 mg Trazodone HCl (Desyrel) 50 mg PO HS [facility] Last Admin: 03/23/18 21:08 Dose: 50 mg - Labs Labs: 03/24/18 06:36 03/24/18 06:36 PT 11.8 SECONDS (9.7-12.2) 03/19/18 02:14 INR 1.1 03/19/18 02:14 APTT 33 SECONDS (21-34) 03/19/18 02:14
--- NOTE | 2018-03-24 14:34 | PN ---
DATE: 03/24/2018 SUBJECTIVE: He is resting comfortably in bed. I also discussed with the bleaching machine operator this morning if they wanted to do an endoscopy tomorrow because his hemoglobin dropped. MEDICATIONS: He is on Apresoline, Crestor, Desyrel, Drisdol, Dulcolax, Decadron, Feosol, Flomax, GoLYTELY, Haldol, Hexavitamin, Lasix, Levemir, Motrin, Norvasc, NovoLog, Zosyn, Protonix, Remeron, sodium bicarbonate, and Ultram. PHYSICAL EXAMINATION: VITAL SIGNS: He has a 97.7 temp, 74 pulse, 153/93 blood pressure, 18 respiratory rate, and 100% O2 sat on room air. HEAD: Atraumatic, normocephalic. HEART: Regular rate. LUNGS: Decreased breath sounds, but clear. ABDOMEN: Soft, nontender. Positive bowel sounds. EXTREMITIES: No edema. He is weak, to nursing home care, but they wanted to do an endoscopy on him tomorrow, which I think is reasonable since his hemoglobin did drop to 7.7. It is now up to 12.3 after transfusion. LABORATORY DATA: White count 6.6, 37.2 hematocrit with 334 platelets. He has 135 sodium, potassium 3.6, BUN 8, creatinine 1.1, GFR is greater than 60, sugar is 53, calcium 7.8, total bili is 0.8, AST is 24, ALT is 47, alk phos 256, total protein is 5.2. ASSESSMENT AND PLAN: He has been seen by multiple physicians. He has got multiple issues, gastrointestinal, endocrinology and renal. I will do an endoscopy tomorrow. We are still awaiting for subacute rehab to long-term care placement hopefully at [facility]. That is where the wants him to go, I understand. Hopefully, Equipment Or Machinery Cleaner can help us with that and he is here for multiple reasons, high blood sugars, low blood sugar, acute kidney injury, anemia, right infiltrate. Continue aggressive treatment and care. Tomorrow, he will go for an endoscopy. Edenilson Morgan DO [facility] # [id number] DAISY
[2018-03-24] MEDS: Insulin Detemir 100 units/ml Vial (Levemir) SC SCH (21:28)
--- NOTE | 2018-03-24 23:07 | PN ---
DATE: 03/24/2018 ENDO FOLLOWUP NOTE LOCATION: Room 559. SUBJECTIVE: This is a 72-year-old male with recent uncontrolled type 2 insulin-requiring diabetes, now being followed closely for metabolic management. His glycemic levels are fluctuating as noted overnight and glucose levels are much higher today with values ranging from 248 to 255 and 265 mg/dL. His chemistries show a BUN of 8, sodium 135, potassium 3.6, chloride 104, CO2 24, glucose 253, and creatinine 1.1. So at this time, we will modify very prudently his basal insulin with Levemir to be given as 4 units subcu at bedtime daily, to start tonight. We will continue the low dose correction scale using NovoLog insulin as given. We will also continue the very low dose prandial insulin with NovoLog given as 3 units subcu t.i.d. before meals as ordered. We will obtain serial chemistries and supplement accordingly as needed. We will follow. Myrna Sheffield MD
[2018-03-25] MEDS: Piperacillin/Tazobact 3.375 GM in Sodium Chloride 100 ML IVPB SCH ×3 (03:36→20:39)
[2018-03-25] MEDS: (Novolog) Insulin Aspart, Recombinant 100 u/ml 10 ml vial SC SCH ×7 (07:15→21:40)
--- NOTE | 2018-03-25 07:58 | PQF ---
PROVIDER RESPONSE TEXT: As per ID REVIEWER QUERY TEXT: Clarification of Clinical Diagnostic Findings Please clarify documentation or clinical relevance for the clinical / diagnostic findings or whether those are insignificant or unable to be further specified. Sepsis POA in the setting of Pneumonia with fever, chills treated with Zosyn IV and IVF w/ NS 1ml/h r . -Other Explanation -Unable to Determine The patient's Clinical Indicators include: Clinical Findings: T= 99.4, P=103, BP= 94/61 . Fever, Chills, agitated , combative, CXR showing Ri ght Perihilar Infiltrate . Treatment: Zosyn IV, IVF w/ NS 1ml/hr Risk factor: Pneumonia Query created by: Muriel Watts on 03/24/2018 6:24 PM Electronically signed by: Zohaib Morgan DO 03/25/2018 7:55 AM
--- NOTE | 2018-03-25 09:36 | PN ---
DATE: 03/25/2018 SUBJECTIVE: He is resting comfortably in bed on the fifth floor at [facility]. He is alert. He is getting ready for his endoscopy with GI since he had some blood loss. We are also waiting for Social Service's case management to help us with placement to subacute rehab and to long-term care. He is presently confused, but doing well. MEDICATIONS: He is on Apresoline, Crestor, Desyrel, Drisdol, Ecotrin, Feosol, Flomax, Haldol, Hexavitamin, Lasix, Levemir, Motrin, Norvasc, NovoLog, Zosyn IV, Protonix, Remeron, sodium bicarbonate, Ultram. PHYSICAL EXAMINATION VITAL SIGNS: He has 98 temp, 78 pulse, 166/92 blood pressure, 142/81 blood pressure, 20 respiratory rate, 99% O2 sat on room air. HEENT: Head is atraumatic and normocephalic. HEART: Regular rate. LUNGS: Decreased breath sounds. ABDOMEN: Soft, nontender. Positive bowel sounds. EXTREMITIES: No edema. LABORATORY DATA: He has 6.6 white count, 12.3 hemoglobin, 37.2 hematocrit, 334 platelets that was yesterday. He has 135 sodium, potassium 3.6, BUN is 8, creatinine is 1.1, GFR is greater than 60, sugar is 83, calcium is 7.8, total bili 0.8, AST is 24, ALT is 47, alk phos is 256, total protein is 5.2. ASSESSMENT AND PLAN: He is being seen by Renal, Endocrinology, and Gastroenterology. We are hoping for the endoscopy to go well today. We are also waiting for subacute rehab until long-term care, then we could discharge him to hopefully, [place], it seems to be a good fit for him. His is okay with that. We will see what the insurance has to say and we will continue with aggressive treatment and care, physical therapy, and as per Gastroenterology, Infectious Disease, Endocrinology, and Renal. Zohaib Morgan DO DAISY
[2018-03-25] MEDS: Pantoprazole 40 mg EC Tab PO SCH ×2 (10:00→17:13)
[2018-03-25] MEDS: Multiple Vitamins Tab PO SCH (10:00)
--- NOTE | 2018-03-25 10:58 | CP.PCM.PN ---
Subjective - Date & Time of Evaluation Date of Evaluation: 03/25/18 Time of Evaluation: 10:58 - Subjective Subjective: Nephrology Consultation Note: Assessment: stable Acute Kidney Injury (N17.9) HAGMA with ketoacidosis and hyperkalemia Pneumonia, AMS with delirium Uncontrolled diabetes mellitus with hypoglycemia and hyperglycemia Diabetic chronic Kidney Disease (E11.22) Hypertensive Chronic Kidney Disease (I12.9) Chronic Kidney Disease (N18.3) Stage 3 with ? mg proteinuria (R80.9) likely due to DM Anemia (D64.9), Vit D def with Secondary Hyperparathyroidism (E21.1), HTN (I12.9) BPH, diabetic neuropathy, chronic pancreatitis gastric ulcer, hx of etoh and smoking in past Vit D def Plan No acute need for renal replacement therapy at this time. Hypertension control with meds as ordered. Patient not on ACEI/ARB due to KHALIDA tendency and hyperkalemia. increased hydralazine 100 mg bid Monitor Input/Output, daily weights and renal function with basic metabolic panel added sodium bicarbonate 650 mg 2 times a day, weekly Vit D continue with iron TID multivitamin supplements. PRBC as needed. continue with Flomax continue with lasix low K diet. kayexylate as needed ID, GI and endocrine following work up as ordered Dose meds/antibiotics for improved GFR. Avoid nephrotoxins/NSAIDs Glycemic control Further work up/management as per primary team Thanks for allowing me to participate in care of your patient. Will follow patient with you. Please call if any Qs. had d/w team Dr Juan Diego Light Office: [phone] reason for consult: KHALIDA, CKD HPI:Pt is a 72 M with hx of uncontrolled diabetes Mellitus (30 years) with retinopathy, hypertension (15-20 years), CKD 3, s/p Right total hip replacement, gout, chronic pancreatitis, gastric ulcer with hiatal hernia with multiple adm issions to hospital with hypo and hyperglycemia/DKA, recently for PNA, AMS with delirium ? dementia came back with behavioral changes. seen by psych Renal consult for kidney disease management pt has uncontrolled DM with sugars ranging from 20 to 500+ ROS: denies CP/SOB. denies nausea and improved abdomen pain.waiting to go to rehab. planned for endoscopic eval Physical Examination: General Appearance: in no acute respiratory distress, co-operative Vitals reviewed and noted as below Head; Atraumatic, normocephalic ENT: no ulcers no thrush. Tongue is midline. Oropharynx: no rash or ulcers. EYES: Pupils are equal, round and reactive to light accommodation. Eye muscles and extraocular movement intact. Sclera is anicteric. Neck; supple no lymphadenopathy, no thyromegaly or bruit Lungs: Normal respiratory rate/effort. Breath sounds bilateral equal and clear Heart: Normal rate. s1s2 normal. No rub or gallop. SM at LSB+. loud S2 Extremities: no edema. No varicose veins Neurological: Patient is AO x 3 no focal deficit Skin: Warm and dry. Normal turgor. No rash. Palpitation: Normal elasticity for age Abdomen: Abdomen is soft. Bowel sounds +. There is no abdominal tenderness, no g uarding/rigidity no organomegaly Psych: normal affect/mood and good insight MSK: no joint tenderness or swelling. Digits and nails normal, no deformity : kidney or bladder not palpable Labs/imaging reviewed. Past medical history, past surgical history, family history, social history, allergy reviewed and noted as below Family hx: no hx of CKD. Rest non-contributory Work up: 06/11/2017: SPEP neg [place]/lambda ratio normal although faint free lambda in JANI renal sono 7 mm cyst normal LVEF on echo Objective - Vital Signs/Intake and Output Vital Signs (last 24 hours): Temp Pulse Resp BP Pulse Ox 97.5 F L 63 20 168/95 H 99 03/25/18 07:00 03/25/18 07:00 03/25/18 07:00 03/25/18 07:00 03/25/18 07:00 Intake and Output: 03/25/18 03/25/18 06:59 18:59 Intake Total 850 100 Balance 850 100 - Medications Medications: Current Medications Amlodipine Besylate (Norvasc) 10 mg PO DAILY [facility] Last Admin: 03/25/18 10:33 Dose: 10 mg Aspirin (Ecotrin) 81 mg PO DAILY [facility] Last Admin: 03/25/18 09:59 Dose: Not Given Ergocalciferol (Drisdol 50,000 Intl Units Cap) 1 cap PO Q7D [facility] Last Admin: 03/20/18 14:19 Dose: 1 cap Ferrous Sulfate (Feosol) 325 mg PO TID [facility] Last Admin: 03/25/18 09:59 Dose: Not Given Furosemide (Lasix) 20 mg IVP ONCE PRN PRN Reason: Other Last Admin: 03/20/18 20:07 Dose: 20 mg Furosemide (Lasix) 20 mg PO DAILY [facility] Last Admin: 03/25/18 10:00 Dose: Not Given Haloperidol (Haldol) 1 mg PO BID [facility] Last Admin: 03/25/18 10:33 Dose: 1 mg Hydralazine HCl (Apresoline) 100 mg PO BID [facility] Last Admin: 03/25/18 10:34 Dose: 100 mg Piperacillin Sod/Tazobactam (Sod 3.375 gm/ Sodium Chloride) 100 mls @ 200 mls/hr IVPB Q8H [facility]; Protocol Last Admin: 03/25/18 03:36 Dose: 200 mls/hr Ibuprofen (Motrin Tab) 600 mg PO Q8H PRN PRN Reason: Pain, moderate (4-7) Last Admin: 03/22/18 21:34 Dose: 600 mg Insulin Aspart (Novolog) 3 unit SC AC [facility] Last Admin: 03/25/18 07:15 Dose: Not Given Insulin Aspart (Novolog) 0 unit SC ACHS [facility] Last Admin: 03/25/18 07:15 Dose: Not Given Insulin Detemir (Levemir) 4 unit SC HS [facility] Last Admin: 03/24/18 21:28 Dose: Not Given Mirtazapine (Remeron) 15 mg PO HS [facility] Last Admin: 03/24/18 21:32 Dose: 15 mg Multivitamins (Hexavitamin) 1 tab PO DAILY [facility] Last Admin: 03/25/18 10:00 Dose: Not Given Pantoprazole Sodium (Protonix Ec Tab) 40 mg PO DAILY [facility] Last Admin: 03/25/18 10:00 Dose: Not Given Rosuvastatin Calcium (Crestor) 5 mg PO HS [facility] Last Admin: 03/24/18 21:32 Dose: 5 mg Sodium Bicarbonate (Sodium Bicarbonate Tab) 650 mg PO BID [facility] Last Admin: 03/25/18 10:00 Dose: Not Given Tamsulosin HCl (Flomax) 0.4 mg PO DAILY [facility] Last Admin: 03/25/18 10:33 Dose: 0.4 mg Tramadol HCl (Ultram) 50 mg PO TID PRN PRN Reason: PAIN, SEVERE 8-10 Last Admin: 03/24/18 22:50 Dose: 50 mg Trazodone HCl (Desyrel) 50 mg PO HS [facility] Last Admin: 03/24/18 21:32 Dose: 50 mg - Labs Labs: 03/24/18 06:36 03/24/18 06:36 PT 11.8 SECONDS (9.7-12.2) 03/19/18 02:14 INR 1.1 03/19/18 02:14 APTT 33 SECONDS (21-34) 03/19/18 02:14
[2018-03-25 11:56] LABS: HEMOGLOBIN 13.1 g/dL (12.0-18.0); MEAN CELL VOLUME 82.8 fL (80.0-94.0); MEAN CORPUSCULAR HEMOGLOBIN 27.8 pg (27.0-31.0); MEAN CORPUSCULAR HGB CONC 33.6 g/dL (33.0-37.0); MEAN PLATELET VOLUME 7.8 fL (7.2-11.7); RBC 4.72 Mil/uL (4.40-5.90); RED CELL DISTRIBUTION WIDTH 18.3 % (11.5-14.5); WHITE BLOOD COUNT 4.9 K/uL (4.8-10.8)
[2018-03-25 12:02] LABS: INR 1.1; PROTHROMBIN TIME 11.8 SECONDS (9.7-12.2)
[2018-03-25 12:29] LABS: ALB/GLOB RATIO 0.8 (1.0-2.1); ALBUMIN 2.5 g/dL (3.5-5.0); ALT/SGPT 42 U/L (21-72); AST/SGOT 29 U/L (17-59); BLOOD UREA NITROGEN 5 mg/dL (9-20); GFR NON-AFRICAN AMERICAN > 60
[2018-03-25] MEDS ORDERED: Propofol 10 mg/ml Inj (20 ML) ONE (12:43)
[2018-03-25] MEDS ORDERED: Lactated Ringer's 1,000 ML IV ONE (13:34)
--- NOTE | 2018-03-25 14:38 | CP.PCM.PN ---
Subjective - Date & Time of Evaluation Date of Evaluation: 03/25/18 Time of Evaluation: 14:35 - Subjective Subjective: Patient seen and examined, no acute events overnight. s/p EGD and colonoscopy today showing erosive esophagitis, gastritis, colon polyps, hemorrhoids. Objective - Vital Signs/Intake and Output Vital Signs (last 24 hours): Temp Pulse Resp BP Pulse Ox 98.1 F 92 H 17 119/81 100 03/25/18 14:14 03/25/18 14:14 03/25/18 14:14 03/25/18 14:14 03/25/18 14:14 Intake and Output: 03/25/18 03/25/18 06:59 18:59 Intake Total 850 100 Balance 850 100 - Medications Medications: Current Medications Amlodipine Besylate (Norvasc) 10 mg PO DAILY [facility] Last Admin: 03/25/18 10:33 Dose: 10 mg Aspirin (Ecotrin) 81 mg PO DAILY [facility] Last Admin: 03/25/18 09:59 Dose: Not Given Ergocalciferol (Drisdol 50,000 Intl Units Cap) 1 cap PO Q7D [facility] Last Admin: 03/20/18 14:19 Dose: 1 cap Ferrous Sulfate (Feosol) 325 mg PO TID [facility] Last Admin: 03/25/18 13:48 Dose: Not Given Furosemide (Lasix) 20 mg IVP ONCE PRN PRN Reason: Other Last Admin: 03/20/18 20:07 Dose: 20 mg Furosemide (Lasix) 20 mg PO DAILY [facility] Last Admin: 03/25/18 10:00 Dose: Not Given Haloperidol (Haldol) 1 mg PO BID [facility] Last Admin: 03/25/18 10:33 Dose: 1 mg Hydralazine HCl (Apresoline) 100 mg PO BID [facility] Last Admin: 03/25/18 10:34 Dose: 100 mg Piperacillin Sod/Tazobactam (Sod 3.375 gm/ Sodium Chloride) 100 mls @ 200 mls/hr IVPB Q8H [facility]; Protocol Last Admin: 03/25/18 11:34 Dose: Not Given Lactated Ringer's (Lactated Ringer's 500ml) 500 mls @ 75 mls/hr IV .Q6H40M [facility] Ibuprofen (Motrin Tab) 600 mg PO Q8H PRN PRN Reason: Pain, moderate (4-7) Last Admin: 03/22/18 21:34 Dose: 600 mg Insulin Aspart (Novolog) 3 unit SC AC [facility] Last Admin: 03/25/18 11:33 Dose: Not Given Insulin Aspart (Novolog) 0 unit SC ACHS [facility] Last Admin: 03/25/18 11:33 Dose: Not Given Insulin Detemir (Levemir) 4 unit SC HS [facility] Last Admin: 03/24/18 21:28 Dose: Not Given Mirtazapine (Remeron) 15 mg PO HS [facility] Last Admin: 03/24/18 21:32 Dose: 15 mg Multivitamins (Hexavitamin) 1 tab PO DAILY [facility] Last Admin: 03/25/18 10:00 Dose: Not Given Pantoprazole Sodium (Protonix Ec Tab) 40 mg PO BID [facility] Rosuvastatin Calcium (Crestor) 5 mg PO HS [facility] Last Admin: 03/24/18 21:32 Dose: 5 mg Sodium Bicarbonate (Sodium Bicarbonate Tab) 650 mg PO BID [facility] Last Admin: 03/25/18 10:00 Dose: Not Given Tamsulosin HCl (Flomax) 0.4 mg PO DAILY [facility] Last Admin: 03/25/18 10:33 Dose: 0.4 mg Tramadol HCl (Ultram) 50 mg PO TID PRN PRN Reason: PAIN, SEVERE 8-10 Last Admin: 03/24/18 22:50 Dose: 50 mg Trazodone HCl (Desyrel) 50 mg PO [facility] Last Admin: 03/24/18 21:32 Dose: 50 mg - Labs Labs: 03/25/18 11:39 03/25/18 11:51 PT 11.8 SECONDS (9.7-12.2) 03/25/18 11:39 INR 1.1 03/25/18 11:39 APTT 33 SECONDS (21-34) 03/19/18 02:14 Assessment and Plan - Assessment and Plan (Free Text) Assessment: CHF CKD Anemia Dementia Pneumonia Diarrhea - likely antibiotic associated, c-difficile negative s/p EGD and colonoscopy today showing erosive esophagitis, gastritis, hiatal hernia, colon polyps, suboptimal bowel preparation Plan: - Advance diet as tolerated - Follow up EGD/colonoscopy biopsy results - Continue with antibiotic therapy as per medical team - If diarrhea persists, would suggest use of immodium PRN. May also consider use of pancreatic enzyme replacement therapy given history of chronic pancreatitis. - No further planned GI intervention, will sign off case. Please reconsult as necessary, thank you.
--- NOTE | 2018-03-25 17:53 | CP.PCM.PN ---
Subjective - Date & Time of Evaluation Date of Evaluation: 03/25/18 Time of Evaluation: 08:00 - Subjective Subjective: alert and awake denies fever chills cough or SOB Objective - Vital Signs/Intake and Output Vital Signs (last 24 hours): Temp Pulse Resp BP Pulse Ox 96.8 F L 117 H 20 100/72 98 03/25/18 15:00 03/25/18 15:00 03/25/18 15:00 03/25/18 15:00 03/25/18 15:00 Intake and Output: 03/25/18 03/25/18 06:59 18:59 Intake Total 850 100 Balance 850 100 - Medications Medications: Current Medications Amlodipine Besylate (Norvasc) 10 mg PO DAILY [facility] Last Admin: 03/25/18 10:33 Dose: 10 mg Aspirin (Ecotrin) 81 mg PO DAILY [facility] Last Admin: 03/25/18 09:59 Dose: Not Given Ergocalciferol (Drisdol 50,000 Intl Units Cap) 1 cap PO Q7D [facility] Last Admin: 03/20/18 14:19 Dose: 1 cap Ferrous Sulfate (Feosol) 325 mg PO TID [facility] Last Admin: 03/25/18 17:13 Dose: 325 mg Furosemide (Lasix) 20 mg IVP ONCE PRN PRN Reason: Other Last Admin: 03/20/18 20:07 Dose: 20 mg Furosemide (Lasix) 20 mg PO DAILY [facility] Last Admin: 03/25/18 10:00 Dose: Not Given Haloperidol (Haldol) 1 mg PO BID [facility] Last Admin: 03/25/18 17:13 Dose: 1 mg Hydralazine HCl (Apresoline) 100 mg PO BID [facility] Last Admin: 03/25/18 17:14 Dose: Not Given Piperacillin Sod/Tazobactam (Sod 3.375 gm/ Sodium Chloride) 100 mls @ 200 mls/hr IVPB Q8H [facility]; Protocol Last Admin: 03/25/18 11:34 Dose: Not Given Lactated Ringer's (Lactated Ringer's 500ml) 500 mls @ 75 mls/hr IV .Q6H40M [facility] Ibuprofen (Motrin Tab) 600 mg PO Q8H PRN PRN Reason: Pain, moderate (4-7) Last Admin: 03/22/18 21:34 Dose: 600 mg Insulin Aspart (Novolog) 3 unit SC AC [facility] Last Admin: 03/25/18 17:15 Dose: 3 unit Insulin Aspart (Novolog) 0 unit SC ACHS [facility] Last Admin: 03/25/18 17:14 Dose: Not Given Insulin Detemir (Levemir) 4 unit SC HS [facility] Last Admin: 03/24/18 21:28 Dose: Not Given Mirtazapine (Remeron) 15 mg PO HS [facility] Last Admin: 03/24/18 21:32 Dose: 15 mg Multivitamins (Hexavitamin) 1 tab PO DAILY [facility] Last Admin: 03/25/18 10:00 Dose: Not Given Pantoprazole Sodium (Protonix Ec Tab) 40 mg PO BID [facility] Last Admin: 03/25/18 17:13 Dose: 40 mg Rosuvastatin Calcium (Crestor) 5 mg PO [facility] Last Admin: 03/24/18 21:32 Dose: 5 mg Sodium Bicarbonate (Sodium Bicarbonate Tab) 650 mg PO BID [facility] Last Admin: 03/25/18 17:13 Dose: 650 mg Tamsulosin HCl (Flomax) 0.4 mg PO DAILY [facility] Last Admin: 03/25/18 10:33 Dose: 0.4 mg Tramadol HCl (Ultram) 50 mg PO TID PRN PRN Reason: PAIN, SEVERE 8-10 Last Admin: 03/24/18 22:50 Dose: 50 mg Trazodone HCl (Desyrel) 50 mg PO [facility] Last Admin: 03/24/18 21:32 Dose: 50 mg - Labs Labs: 03/25/18 11:39 03/25/18 11:51 PT 11.8 SECONDS (9.7-12.2) 03/25/18 11:39 INR 1.1 03/25/18 11:39 APTT 33 SECONDS (21-34) 03/19/18 02:14 - Constitutional Appears: Non-toxic, Chronically Ill - Head Exam Head Exam: NORMOCEPHALIC - Eye Exam Eye Exam: PERRL - ENT Exam ENT Exam: Normal External Ear Exam - Neck Exam Neck Exam: absent: Lymphadenopathy - Respiratory Exam Respiratory Exam: Decreased Breath Sounds - Cardiovascular Exam Cardiovascular Exam: REGULAR RHYTHM - GI/Abdominal Exam GI & Abdominal Exam: Distended, Soft - Rectal Exam Rectal Exam: Deferred - Exam Exam: NORMAL INSPECTION - Extremities Exam Extremities Exam: absent: Pedal Edema - Back Exam Back Exam: absent: CVA tenderness (L), CVA tenderness (R) - Neurological Exam Neurological Exam: Alert, Awake, Oriented x3 - Psychiatric Exam Psychiatric exam: Depressed - Skin Skin Exam: Dry Assessment and Plan - Assessment and Plan (Free Text) Plan: cont iv rx psych eval ongoing
[2018-03-25] MEDS: Lactated Ringer's 500 ML IV SCH (20:38)
[2018-03-25] MEDS: Insulin Detemir 100 units/ml Vial (Levemir) SC SCH (21:36)
--- NOTE | 2018-03-25 22:37 | PN ---
DATE: 03/25/2018 ENDOCRINOLOGY FOLLOWUP NOTE LOCATION: Room 559. This is a 72-year-old male with recent uncontrolled type 2 insulin-requiring diabetes, now being followed closely for metabolic management. His glycemic levels are fluctuating but improved, and the glucose levels overnight have ranged from 166 to 174 mg/dL. It was 83 at bedtime last night, and it was 302 at lunchtime today as noted. His chemistry showed a BUN of 5, sodium 138, potassium 3.5, chloride 105, CO2 of 22, glucose 161, and creatinine 1. So at this time, we will continue the same low dose and prudent insulin doses as given with NovoLog given as 3 units t.i.d. before meals as ordered. We will continue the Levemir given as 4 units subcu at bedtime daily as given. We will titrate incrementally as indicated to optimize metabolic control. We will follow and advise accordingly. Myrna Sheffield MD
[2018-03-26] MEDS: Piperacillin/Tazobact 3.375 GM in Sodium Chloride 100 ML IVPB SCH ×3 (04:17→19:38)
[2018-03-26] MEDS: Lactated Ringer's 500 ML IV SCH ×3 (04:24→15:35)
[2018-03-26] MEDS: (Novolog) Insulin Aspart, Recombinant 100 u/ml 10 ml vial SC SCH ×7 (08:45→22:13)
[2018-03-26] MEDS: Multiple Vitamins Tab PO SCH (10:00)
[2018-03-26] MEDS: Pantoprazole 40 mg EC Tab PO SCH ×2 (10:00→18:09)
--- NOTE | 2018-03-26 11:51 | CP.PCM.PN ---
Subjective - Date & Time of Evaluation Date of Evaluation: 03/26/18 Time of Evaluation: 11:50 - Subjective Subjective: Nephrology Consultation Note: Assessment: stable Acute Kidney Injury (N17.9) resolved HAGMA with ketoacidosis and hyperkalemia Pneumonia, AMS with delirium Uncontrolled diabetes mellitus with hypoglycemia and hyperglycemia Diabetic chronic Kidney Disease (E11.22) Hypertensive Chronic Kidney Disease (I12.9) Chronic Kidney Disease (N18.3) Stage 3 with ? mg proteinuria (R80.9) likely due to DM Anemia (D64.9), Vit D def with Secondary Hyperparathyroidism (E21.1), HTN (I12.9) BPH, diabetic neuropathy, chronic pancreatitis gastric ulcer, hx of etoh and smoking in past Vit D def Plan No acute need for renal replacement therapy at this time. Hypertension control with meds as ordered. Patient not on ACEI/ARB due to KHALIDA tendency and hyperkalemia. increased hydralazine 100 mg bid Monitor Input/Output, daily weights and renal function with basic metabolic panel added sodium bicarbonate 650 mg 2 times a day, weekly Vit D continue with iron TID multivitamin supplements. PRBC as needed. continue with Flomax continue with lasix low K diet. kayexylate as needed ID, GI and endocrine following work up as ordered Dose meds/antibiotics for improved GFR. Avoid nephrotoxins/NSAIDs Glycemic control Further work up/management as per primary team pt stable for d/c from renal perspective Thanks for allowing me to participate in care of your patient. Will follow patient with you. Please call if any Qs. had d/w team Dr Juan Diego Light Office: [phone] reason for consult: KHALIDA, CKD HPI:Pt is a 72 M with hx of uncontrolled diabetes Mellitus (30 years) with retinopathy, hypertension (15-20 years), CKD 3, s/p Right total hip replacement, gout, chronic pancreatitis, gastric ulcer with hiatal hernia with multiple admissions to hospital with hypo and hyperglycemia/DKA, recently for PNA, AMS with delirium ? dementia came back with behavioral changes. seen by psych Renal consult for kidney disease management pt has uncontrolled DM with sugars ranging from 20 to 500+ ROS: denies CP/SOB. denies nausea and improved abdomen pain.waiting to go to rehab. had endoscopic eval Physical Examination: General Appearance: in no acute respiratory distress, co-operative Vitals reviewed and noted as below Head; Atraumatic, normocephalic ENT: no ulcers no thrush. Tongue is midline. Oropharynx: no rash or ulcers. EYES: Pupils are equal, round and reactive to light accommodation. Eye muscles and extraocular movement intact. Sclera is anicteric. Neck; supple no lymphadenopathy, no thyromegaly or bruit Lungs: Normal respiratory rate/effort. Breath sounds bilateral equal and clear Heart: Normal rate. s1s2 normal. No rub or gallop. SM at LSB+. loud S2 Extremities: no edema. No varicose veins Neurological: Patient is AO x 3 no focal deficit Skin: Warm and dry. Normal turgor. No rash. Palpitation: Normal elasticity for age Abdomen: Abdomen is soft. Bowel sounds +. There is no abdominal tenderness, no guarding/rigidity no organomegaly Psych: normal affect/mood and good insight MSK: no joint tenderness or swelling. Digits and nails normal, no deformity : kidney or bladder not palpable Labs/imaging reviewed. Past medical history, past surgical history, family history, social history, allergy reviewed and noted as below Family hx: no hx of CKD. Rest non-contributory Work up: 06/11/2017: SPEP neg [place]/lambda ratio normal although faint free lambda in JANI renal sono 7 mm cyst normal LVEF on echo Objective - Vital Signs/Intake and Output Vital Signs (last 24 hours): Temp Pulse Resp BP Pulse Ox 97.6 F 65 20 162/78 H 100 03/26/18 07:00 03/26/18 07:00 03/26/18 07:00 03/26/18 10:01 03/26/18 07:00 - Medications Medications: Current Medications Amlodipine Besylate (Norvasc) 10 mg PO DAILY [facility] Last Admin: 03/26/18 10:00 Dose: 10 mg Aspirin (Ecotrin) 81 mg PO DAILY [facility] Last Admin: 03/26/18 10:00 Dose: 81 mg Ergocalciferol (Drisdol 50,000 Intl Units Cap) 1 cap PO Q7D [facility] Last Admin: 03/20/18 14:19 Dose: 1 cap Ferrous Sulfate (Feosol) 325 mg PO TID [facility] Last Admin: 03/26/18 10:00 Dose: 325 mg Furosemide (Lasix) 20 mg IVP ONCE PRN PRN Reason: Other Last Admin: 03/20/18 20:07 Dose: 20 mg Furosemide (Lasix) 20 mg PO DAILY [facility] Last Admin: 03/26/18 10:01 Dose: 20 mg Haloperidol (Haldol) 1 mg PO BID [facility] Last Admin: 03/26/18 10:00 Dose: 1 mg Hydralazine HCl (Apresoline) 100 mg PO BID [facility] Last Admin: 03/26/18 10:00 Dose: 100 mg Piperacillin Sod/Tazobactam (Sod 3.375 gm/ Sodium Chloride) 100 mls @ 200 mls/hr IVPB Q8H [facility]; Protocol Last Admin: 03/26/18 04:17 Dose: 200 mls/hr Lactated Ringer's (Lactated Ringer's 500ml) 500 mls @ 75 mls/hr IV .Q6H40M [facility] Last Admin: 03/26/18 10:03 Dose: Not Given Ibuprofen (Motrin Tab) 600 mg PO Q8H PRN PRN Reason: Pain, moderate (4-7) Last Admin: 03/22/18 21:34 Dose: 600 mg Insulin Aspart (Novolog) 3 unit SC AC [facility] Last Admin: 03/26/18 08:45 Dose: 3 unit Insulin Aspart (Novolog) 0 unit SC ACHS [facility] Last Admin: 03/26/18 11:32 Dose: Not Given Insulin Detemir (Levemir) 4 unit SC HS [facility] Last Admin: 03/25/18 21:36 Dose: 4 units Mirtazapine (Remeron) 15 mg PO HS [facility] Last Admin: 03/25/18 21:35 Dose: 15 mg Multivitamins (Hexavitamin) 1 tab PO DAILY [facility] Last Admin: 03/26/18 10:00 Dose: 1 tab Pantoprazole Sodium (Protonix Ec Tab) 40 mg PO BID [facility] Last Admin: 03/26/18 10:00 Dose: 40 mg Rosuvastatin Calcium (Crestor) 5 mg PO HS [facility] Last Admin: 03/25/18 21:35 Dose: 5 mg Sodium Bicarbonate (Sodium Bicarbonate Tab) 650 mg PO BID [facility] Last Admin: 03/26/18 10:00 Dose: 650 mg Tamsulosin HCl (Flomax) 0.4 mg PO DAILY [facility] Last Admin: 03/26/18 10:00 Dose: 0.4 mg Tramadol HCl (Ultram) 50 mg PO TID PRN PRN Reason: PAIN, SEVERE 8-10 Last Admin: 03/26/18 04:16 Dose: 50 mg Trazodone HCl (Desyrel) 50 mg PO HS [facility] Last Admin: 03/25/18 21:35 Dose: 50 mg - Labs Labs: 03/25/18 11:39 03/25/18 11:51 PT 11.8 SECONDS (9.7-12.2) 03/25/18 11:39 INR 1.1 03/25/18 11:39 APTT 33 SECONDS (21-34) 03/19/18 02:14
--- NOTE | 2018-03-26 14:15 | PN ---
DATE: 03/26/2018 SUBJECTIVE: Ferny had an upper and lower endoscopy yesterday. He had erosive esophagitis, gastritis, colon polyps, and hemorrhoids. He is resting comfortably today. He is in his typical spirits. He wants to go home, but he understands he needs subacute rehab before he can go anywhere. He is on IV antibiotics by Infectious Diseases. His blood sugar is being controlled by Endocrinology. He has no chest pain or shortness of breath, no abdominal pain. PHYSICAL EXAMINATION: VITAL SIGNS: He has a 97.6 temperature, 65 pulse, 168/87 blood pressure, 20 respiratory rate, 100% O2 sat on room air. HEENT: Atraumatic, normocephalic. HEART: Regular rate. LUNGS: Clear to auscultation, decreased breath sounds. ABDOMEN: Soft, nontender. Positive bowel sounds. EXTREMITIES: No edema. MEDICATIONS: He is currently on Apresoline, Crestor, Desyrel, Drisdol, Ecotrin, Feosol, Flomax, Haldol, Hexavitamin, lactated Ringer's, Lasix IV, Levemir, Motrin, Norvasc, NovoLog, Zosyn, Protonix twice a day, Remeron, sodium bicarbonate, and Ultram. LABORATORY DATA: He has 138 sodium, potassium 3.5, potassium was given. BUN 5, creatinine 1, GFR is greater than 60, blood sugar is 159, calcium is 8. Total bili is 0.8, AST is 29, ALT is 42, alk phos 216, total protein is 5.6. White count is .9, hemoglobin 13.1, hematocrit 39.1, platelets 347. ASSESSMENT AND PLAN: He has been seen by Infectious Disease, Endocrinology, GI, Renal. Waiting for director of social services and case management to make arrangements for [facility] for subacute rehabilitation into long-term care. He has multiple issues besides what was mentioned above. Hopefully, he will improve. Blood sugar is up and down. Gastroenterological issues renal insufficiency, I do think it is improving, being for long-term care. Zohaib Morgan DO [facility] # [id number] MTDD
[2018-03-26 16:54] LABS: HEMOGLOBIN 13.9 g/dL (12.0-18.0); MEAN CELL VOLUME 84.5 fL (80.0-94.0); MEAN CORPUSCULAR HEMOGLOBIN 27.5 pg (27.0-31.0); MEAN CORPUSCULAR HGB CONC 32.5 g/dL (33.0-37.0); MEAN PLATELET VOLUME 7.6 fL (7.2-11.7); RBC 5.04 Mil/uL (4.40-5.90); RED CELL DISTRIBUTION WIDTH 18.9 % (11.5-14.5); WHITE BLOOD COUNT 6.4 K/uL (4.8-10.8)
[2018-03-26 17:38] LABS: ALB/GLOB RATIO 0.9 (1.0-2.1); ALBUMIN 2.7 g/dL (3.5-5.0); ALT/SGPT 35 U/L (21-72); AST/SGOT 39 U/L (17-59); BLOOD UREA NITROGEN 9 mg/dL (9-20); CALCIUM 7.8 mg/dl (8.6-10.4); GFR NON-AFRICAN AMERICAN 55
[2018-03-26] MEDS: Insulin Detemir 100 units/ml Vial (Levemir) SC SCH (21:18)
--- NOTE | 2018-03-26 23:19 | PN ---
DATE: 03/26/2018 ENDOCRINOLOGY FOLLOWUP NOTE LOCATION: Room 559. This is a 72-year-old male with recent uncontrolled type 2 insulin-requiring diabetes with ongoing management for acute pneumonitis and is now being followed closely for metabolic management. His glycemic levels are much improved at this time, and the glucose values have ranged from 135 to 159 and 190 mg/dL. His chemistry showed a BUN of 9, sodium 138, potassium 4, chloride 105, CO2 of 20, glucose 170, and creatinine 1.3. So at this time, we will continue the modified basal and bolus insulin regimens with NovoLog given as 3 units t.i.d. before meals as ordered. We will continue the Levemir given as 4 units subcu at bedtime daily as given. We will titrate incrementally as indicated to optimize metabolic control. We will follow and advise accordingly. Myrna Sheffield MD
[2018-03-27] MEDS ORDERED: Dextrose 50% VIAL Inj (50 ml) IV ONE (02:29)
--- NOTE | 2018-03-27 02:53 | CP.PCM.PCO ---
Addendum entered and electronically signed by Andres Cardoza 03/27/18 06:45: House doctor note: Paged for hypoglycemia. Patient had blood sugars in the 20s overnight. One of D50 ordered stat. Patient seen and examined at bedside. Patient A&O x3, had no complaints. Patient stated he feels the same pre and post D50. Patient stated he had his regular meals and has these episodes. Per chart review, patient had a previous similar episode a few days prior. Encouraged the patient to eat. Asked the nurse to repeat BS in a couple hours. Repeat BS in 100s. Original Note:
[2018-03-27] MEDS: Piperacillin/Tazobact 3.375 GM in Sodium Chloride 100 ML IVPB SCH ×2 (03:05→12:00)
[2018-03-27] MEDS: Lactated Ringer's 500 ML IV SCH ×3 (04:00→19:06)
[2018-03-27 07:08] LABS: MEAN CORPUSCULAR HEMOGLOBIN 27.8 pg (27.0-31.0); MEAN CORPUSCULAR HGB CONC 33.5 g/dL (33.0-37.0); MEAN PLATELET VOLUME 7.4 fL (7.2-11.7); RBC 4.02 Mil/uL (4.40-5.90); WHITE BLOOD COUNT 6.2 K/uL (4.8-10.8)
[2018-03-27 07:18] LABS: HEMOGLOBIN 11.2 g/dL (12.0-18.0)
[2018-03-27 07:19] LABS: ALB/GLOB RATIO 0.8 (1.0-2.1); ALBUMIN 2.2 g/dL (3.5-5.0); ALT/SGPT 38 U/L (21-72); AST/SGOT 31 U/L (17-59); BLOOD UREA NITROGEN 10 mg/dL (9-20); CALCIUM 7.8 mg/dl (8.6-10.4); GFR NON-AFRICAN AMERICAN 55
[2018-03-27] MEDS ORDERED: Glucagon Recombinant 1 mg Inj IM PRN (08:22)
[2018-03-27] MEDS ORDERED: Dextrose 50% SYRINGE Inj (50 ml) IV PRN (08:22)
[2018-03-27] MEDS: (Novolog) Insulin Aspart, Recombinant 100 u/ml 10 ml vial SC SCH ×7 (08:37→21:19)
[2018-03-27] MEDS: Pantoprazole 40 mg EC Tab PO SCH ×2 (10:19→17:45)
[2018-03-27] MEDS: Multiple Vitamins Tab PO SCH (10:19)
--- NOTE | 2018-03-27 11:33 | PN ---
DATE: 03/27/2018 SUBJECTIVE: He was moved to room #557. He is comfortable in bed. He is questioning when he could go to subacute rehab. He is on Apresoline, Crestor, Desyrel, Drisdol, Ecotrin, Feosol, Flomax, Haldol, Hexavitamin, lactated Ringer's, Lasix, Levemir, Motrin, Norvasc, Novolin, Zosyn, Protonix, Remeron, sodium bicarbonate, and Ultram. PHYSICAL EXAMINATION VITAL SIGNS: He has 97.4 temperature, 78 pulse, 139/89 blood pressure, 100% O2 sat on 2 L. GENERAL: He is alert and oriented x3. His blood pressure did drop to the 20s again today. He was given dextrose and also orange juice. HEENT: His head is atraumatic and normocephalic. Throat is moist. NECK: Supple. HEART: Regular rate. LUNGS: Clear to auscultation. ABDOMEN: Soft. EXTREMITIES: No edema. LABORATORY DATA: He has a 6.4 white count, 13.9 hemoglobin, 42.6 hematocrit, 342 platelets. He has a 138 sodium, potassium 4, BUN is 9, creatinine is 1.3, GFR is 55. Last sugar was 91, but lows 25 and 23. Calcium 7.8, total bili is 0.7, AST is 39, ALT is 35, alk phos 223, total protein is 5.8. ASSESSMENT AND PLAN: He is being seen by Endocrinology, Renal, Infectious Disease, Gastroenterology. I am waiting for case management and rn social work to help us with discharge planning. He has had pneumonia. Blood sugars are up and down as per case management and rn social work and I will check his labs tomorrow, make sure he is getting out to bed to chair everyday. Continue with aggressive treatment and care on Ferny Davidson. I will decrease some of his today. Zohaib Morgan DO [facility]
[2018-03-27] MEDS: Ergocalciferol 50,000 Intl Units Cap PO SCH (13:49)
--- NOTE | 2018-03-27 15:35 | CP.PCM.PN ---
Subjective - Date & Time of Evaluation Date of Evaluation: 03/27/18 Time of Evaluation: 15:34 - Subjective Subjective: Nephrology Consultation Note: Assessment: stable Acute Kidney Injury (N17.9) resolved HAGMA with ketoacidosis and hyperkalemia Pneumonia, AMS with delirium Uncontrolled diabetes mellitus with hypoglycemia and hyperglycemia Diabetic chronic Kidney Disease (E11.22) Hypertensive Chronic Kidney Disease (I12.9) Chronic Kidney Disease (N18.3) Stage 3 with ? mg proteinuria (R80.9) likely due to DM Anemia (D64.9), Vit D def with Secondary Hyperparathyroidism (E21.1), HTN (I12.9) BPH, diabetic neuropathy, chronic pancreatitis gastric ulcer, hx of etoh and smoking in past Vit D def Plan No acute need for renal replacement therapy at this time. Hypertension control with meds as ordered. Patient not on ACEI/ARB due to KHALIDA tendency and hyperkalemia. increased hydralazine 100 mg bid Monitor Input/Output, daily weights and renal function with basic metabolic panel added sodium bicarbonate 650 mg 2 times a day, weekly Vit D continue with iron TID multivitamin supplements. PRBC as needed. continue with Flomax continue with lasix low K diet. kayexylate as needed ID, GI and endocrine following work up as ordered Dose meds/antibiotics for improved GFR. Avoid nephrotoxins/NSAIDs Glycemic control Further work up/management as per primary team pt stable for d/c from renal perspective Thanks for allowing me to participate in care of your patient. Will follow patient with you. Please call if any Qs. had d/w team Dr Juan Diego [facility] Office: [phone] reason for consult: KHALIDA, CKD HPI:Pt is a 72 M with hx of uncontrolled diabetes Mellitus (30 years) with retinopathy, hypertension (15-20 years), CKD 3, s/p Right total hip replacement, gout, chronic pancreatitis, gastric ulcer with hiatal hernia with multiple admissions to hospital with hypo and hyperglycemia/DKA, recently for PNA, AMS with delirium ? dementia came back with behavioral changes. seen by psych Renal consult for kidney disease management pt has uncontrolled DM with sugars ranging from 20 to 500+ ROS: denies CP/SOB. denies nausea and improved abdomen pain.waiting to go to rehab. had endoscopic eval Physical Examination: General Appearance: in no acute respiratory distress, co-operative Vitals reviewed and noted as below Head; Atraumatic, normocephalic ENT: no ulcers no thrush. Tongue is midline. Oropharynx: no rash or ulcers. EYES: Pupils are equal, round and reactive to light accommodation. Eye muscles and extraocular movement intact. Sclera is anicteric. Neck; supple no lymphadenopathy, no thyromegaly or bruit Lungs: Normal respiratory rate/effort. Breath sounds bilateral equal and clear Heart: Normal rate. s1s2 normal. No rub or gallop. SM at LSB+. loud S2 Extremities: no edema. No varicose veins Neurological: Patient is AO x 3 no focal deficit Skin: Warm and dry. Normal turgor. No rash. Palpitation: Normal elasticity for age Abdomen: Abdomen is soft. Bowel sounds +. There is no abdominal tenderness, no guarding/rigidity no organomegaly Psych: normal affect/mood and good insight MSK: no joint tenderness or swelling. Digits and nails normal, no deformity : kidney or bladder not palpable Labs/imaging reviewed. Past medical history, past surgical history, family history, social history, allergy reviewed and noted as below Family hx: no hx of CKD. Rest non-contributory Work up: 06/11/2017: SPEP neg [place]/lambda ratio normal although faint free lambda in JANI renal sono 7 mm cyst normal LVEF on echo Objective - Vital Signs/Intake and Output Vital Signs (last 24 hours): Temp Pulse Resp BP Pulse Ox 97.4 F L 71 20 152/78 H 95 03/27/18 08:31 03/27/18 08:31 03/27/18 08:31 03/27/18 10:19 03/27/18 08:31 Intake and Output: 03/27/18 03/27/18 06:59 18:59 Intake Total 2130 1300 Output Total 850 Balance 1280 1300 - Medications Medications: Current Medications Amlodipine Besylate (Norvasc) 10 mg PO DAILY [facility] Last Admin: 03/27/18 10:19 Dose: 10 mg Aspirin (Ecotrin) 81 mg PO DAILY [facility] Last Admin: 03/27/18 10:19 Dose: 81 mg Dextrose (Dextrose 50% Inj) 0 ml IV STAT PRN; Protocol PRN Reason: Hypoglycemia Protocol Dextrose (Glutose 15) 15 gm PO ONCE PRN; Protocol PRN Reason: Hypoglycemia Protocol Ergocalciferol (Drisdol 50,000 Intl Units Cap) 1 cap PO Q7D [facility] Last Admin: 03/27/18 13:49 Dose: 1 cap Ferrous Sulfate (Feosol) 325 mg PO TID [facility] Last Admin: 03/27/18 13:49 Dose: 325 mg Furosemide (Lasix) 20 mg IVP ONCE PRN PRN Reason: Other Last Admin: 03/20/18 20:07 Dose: 20 mg Furosemide (Lasix) 20 mg PO DAILY [facility] Last Admin: 03/27/18 10:19 Dose: 20 mg Glucagon (Glucagen Diagnostic Kit) 1 mg IM STAT PRN; Protocol PRN Reason: Hypoglycemia Protocol Haloperidol (Haldol) 1 mg PO BID [facility] Last Admin: 03/27/18 10:19 Dose: 1 mg Hydralazine HCl (Apresoline) 100 mg PO BID [facility] Last Admin: 03/27/18 10:19 Dose: 100 mg Piperacillin Sod/Tazobactam (Sod 3.375 gm/ Sodium Chloride) 100 mls @ 200 mls/hr IVPB Q8H [facility]; Protocol Last Admin: 03/27/18 12:00 Dose: 200 mls/hr Lactated Ringer's (Lactated Ringer's 500ml) 500 mls @ 75 mls/hr IV .Q6H40M [facility] Last Admin: 03/27/18 11:50 Dose: Not Given Dextrose (Dextrose 5% In Water 1000 Ml) 1,000 mls @ 0 mls/hr IV .Q0M PRN; Protocol PRN Reason: Hypoglycemia Protocol Ibuprofen (Motrin Tab) 600 mg PO Q8H PRN PRN Reason: Pain, moderate (4-7) Last Admin: 03/22/18 21:34 Dose: 600 mg Insulin Aspart (Novolog) 0 unit SC ACHS [facility] Last Admin: 03/27/18 11:50 Dose: Not Given Insulin Aspart (Novolog) 2 unit SC AC [facility] Last Admin: 03/27/18 11:50 Dose: Not Given Insulin Detemir (Levemir) 4 unit SC HS [facility] Last Admin: 03/26/18 21:18 Dose: 4 units Mirtazapine (Remeron) 15 mg PO HS [facility] Last Admin: 03/26/18 21:18 Dose: 15 mg Multivitamins (Hexavitamin) 1 tab PO DAILY [facility] Last Admin: 03/27/18 10:19 Dose: 1 tab Pantoprazole Sodium (Protonix Ec Tab) 40 mg PO BID [facility] Last Admin: 03/27/18 10:19 Dose: 40 mg Rosuvastatin Calcium (Crestor) 5 mg PO HS [facility] Last Admin: 03/26/18 21:18 Dose: 5 mg Sodium Bicarbonate (Sodium Bicarbonate Tab) 650 mg PO BID [facility] Last Admin: 03/27/18 10:19 Dose: 650 mg Tamsulosin HCl (Flomax) 0.4 mg PO DAILY [facility] Last Admin: 03/27/18 10:19 Dose: 0.4 mg Tramadol HCl (Ultram) 50 mg PO TID PRN PRN Reason: PAIN, SEVERE 8-10 Last Admin: 03/27/18 00:39 Dose: 50 mg Trazodone HCl (Desyrel) 50 mg PO HS [facility] Last Admin: 03/26/18 21:18 Dose: 50 mg - Labs Labs: 03/27/18 06:50 03/27/18 06:50 PT 11.8 SECONDS (9.7-12.2) 03/25/18 11:39 INR 1.1 03/25/18 11:39 APTT 33 SECONDS (21-34) 03/19/18 02:14
--- NOTE | 2018-03-27 19:25 | CP.PCM.PN ---
Subjective - Date & Time of Evaluation Date of Evaluation: 03/27/18 Time of Evaluation: 07:00 - Subjective Subjective: SEEN ON ROUNDS COMFORTABLE AT REST Objective - Vital Signs/Intake and Output Vital Signs (last 24 hours): Temp Pulse Resp BP Pulse Ox 98.2 F 90 20 135/84 99 03/27/18 15:57 03/27/18 15:57 03/27/18 15:57 03/27/18 17:44 03/27/18 15:57 Intake and Output: 03/27/18 03/28/18 18:59 06:59 Intake Total 1300 Balance 1300 - Medications Medications: Current Medications Amlodipine Besylate (Norvasc) 10 mg PO DAILY [facility] Last Admin: 03/27/18 10:19 Dose: 10 mg Aspirin (Ecotrin) 81 mg PO DAILY [facility] Last Admin: 03/27/18 10:19 Dose: 81 mg Dextrose (Dextrose 50% Inj) 0 ml IV STAT PRN; Protocol PRN Reason: Hypoglycemia Protocol Dextrose (Glutose 15) 15 gm PO ONCE PRN; Protocol PRN Reason: Hypoglycemia Protocol Ergocalciferol (Drisdol 50,000 Intl Units Cap) 1 cap PO Q7D [facility] Last Admin: 03/27/18 13:49 Dose: 1 cap Ferrous Sulfate (Feosol) 325 mg PO TID [facility] Last Admin: 03/27/18 17:45 Dose: 325 mg Furosemide (Lasix) 20 mg IVP ONCE PRN PRN Reason: Other Last Admin: 03/20/18 20:07 Dose: 20 mg Furosemide (Lasix) 20 mg PO DAILY [facility] Last Admin: 03/27/18 10:19 Dose: 20 mg Glucagon (Glucagen Diagnostic Kit) 1 mg IM STAT PRN; Protocol PRN Reason: Hypoglycemia Protocol Haloperidol (Haldol) 1 mg PO BID [facility] Last Admin: 03/27/18 17:45 Dose: 1 mg Hydralazine HCl (Apresoline) 100 mg PO BID [facility] Last Admin: 03/27/18 17:45 Dose: 100 mg Lactated Ringer's (Lactated Ringer's 500ml) 500 mls @ 75 mls/hr IV .Q6H40M [facility] Last Admin: 03/27/18 19:06 Dose: 75 mls/hr Dextrose (Dextrose 5% In Water 1000 Ml) 1,000 mls @ 0 mls/hr IV .Q0M PRN; Protocol PRN Reason: Hypoglycemia Protocol Ibuprofen (Motrin Tab) 600 mg PO Q8H PRN PRN Reason: Pain, moderate (4-7) Last Admin: 03/22/18 21:34 Dose: 600 mg Insulin Aspart (Novolog) 0 unit SC ACHS [facility] Last Admin: 03/27/18 17:21 Dose: Not Given Insulin Aspart (Novolog) 2 unit SC AC [facility] Last Admin: 03/27/18 17:21 Dose: Not Given Insulin Detemir (Levemir) 3 unit SC HS [facility] Mirtazapine (Remeron) 15 mg PO HS [facility] Last Admin: 03/26/18 21:18 Dose: 15 mg Multivitamins (Hexavitamin) 1 tab PO DAILY [facility] Last Admin: 03/27/18 10:19 Dose: 1 tab Pantoprazole Sodium (Protonix Ec Tab) 40 mg PO BID [facility] Last Admin: 03/27/18 17:45 Dose: 40 mg Rosuvastatin Calcium (Crestor) 5 mg PO [facility] Last Admin: 03/26/18 21:18 Dose: 5 mg Sodium Bicarbonate (Sodium Bicarbonate Tab) 650 mg PO BID [facility] Last Admin: 03/27/18 17:45 Dose: 650 mg Tamsulosin HCl (Flomax) 0.4 mg PO DAILY [facility] Last Admin: 03/27/18 10:19 Dose: 0.4 mg Tramadol HCl (Ultram) 50 mg PO TID PRN PRN Reason: PAIN, SEVERE 8-10 Last Admin: 03/27/18 00:39 Dose: 50 mg Trazodone HCl (Desyrel) 50 mg PO [facility] Last Admin: 03/26/18 21:18 Dose: 50 mg - Labs Labs: 03/27/18 06:50 03/27/18 06:50 PT 11.8 SECONDS (9.7-12.2) 03/25/18 11:39 INR 1.1 03/25/18 11:39 APTT 33 SECONDS (21-34) 03/19/18 02:14 - Constitutional Appears: Non-toxic, Chronically Ill - Head Exam Head Exam: NORMOCEPHALIC - Eye Exam Eye Exam: PERRL - ENT Exam ENT Exam: Mucous Membranes Dry - Neck Exam Neck Exam: absent: Lymphadenopathy - Respiratory Exam Respiratory Exam: Decreased Breath Sounds - Cardiovascular Exam Cardiovascular Exam: REGULAR RHYTHM - GI/Abdominal Exam GI & Abdominal Exam: Distended - Rectal Exam Rectal Exam: Deferred Assessment and Plan - Assessment and Plan (Free Text) Plan: CONT RX ORDERED
--- NOTE | 2018-03-27 20:29 | PN ---
DATE: 03/27/2018 LOCATION: Room 557. SUBJECTIVE: This is a 72-year-old male with a history of uncontrolled type 2 insulin-requiring diabetes with overnight hypoglycemic as noted thereof. His glucose levels ranged from 76 to 284 mg/dL today as noted. LABORATORY DATA: His chemistry showed a BUN of 10, sodium 138, potassium 3.7, chloride 108, CO2 of 24, glucose 73 and creatinine 1.3. PLAN: So at this time, we will lower once again his basal insulin down to Levemir given as 3 units subcu at bedtime daily as given to start tonight. We will titrate incrementally as indicated to optimize metabolic control. We will also continue the low-dose correction scale using Novolin insulin as given. We will continue also the low-dose prandial insulin given as NovoLog 3 units subcu t.i.d. before meals as given. We will obtain serial chemistries and supplement accordingly as needed. We will follow. Myrna Sheffield MD
[2018-03-27] MEDS ORDERED: Insulin Detemir 100 units/ml Vial (Levemir) SC SCH (22:00)
[2018-03-28 06:42] LABS: HEMOGLOBIN 11.8 g/dL (12.0-18.0); MEAN CELL VOLUME 83.3 fL (80.0-94.0); MEAN CORPUSCULAR HGB CONC 33.7 g/dL (33.0-37.0); MEAN PLATELET VOLUME 7.7 fL (7.2-11.7); RBC 4.19 Mil/uL (4.40-5.90); RED CELL DISTRIBUTION WIDTH 18.7 % (11.5-14.5); WHITE BLOOD COUNT 4.6 K/uL (4.8-10.8)
[2018-03-28 07:03] LABS: ALB/GLOB RATIO 0.9 (1.0-2.1); ALBUMIN 2.4 g/dL (3.5-5.0); ALT/SGPT 43 U/L (21-72); AST/SGOT 20 U/L (17-59); BLOOD UREA NITROGEN 11 mg/dL (9-20); CALCIUM 8.1 mg/dl (8.6-10.4); GFR NON-AFRICAN AMERICAN 55
--- NOTE | 2018-03-28 08:32 | PN ---
DATE: 03/28/2018 SUBJECTIVE: He is sitting up in bed, watching TV, comfortable this morning. No acute distress. PHYSICAL EXAMINATION: VITAL SIGNS: He has 97.9 temp, 77 pulse, 121/76 blood pressure, 20 respiratory rate, and 99% O2 sat on room air. HEENT: Head is atraumatic and normocephalic. Throat is moist. NECK: Supple. HEART: Regular rate. LUNGS: Clear to auscultation. ABDOMEN: Soft and nontender. Positive bowel sounds. EXTREMITIES: No edema. MEDICATIONS: He is currently on Apresoline, Crestor, Desyrel, dextrose p.r.n., Drisdol, Ecotrin, Feosol, Flomax, glucagon as needed, glucose as needed, Haldol, Hexavitamin, lactated Ringer's, Lasix, ibuprofen, Norvasc, NovoLog, Protonix, Remeron, sodium bicarbonate, and Ultram. He is now off Levemir, and he is off Zosyn. LABORATORY DATA: He has a 6.2 white count, 11.2 hemoglobin, 32.3 hematocrit, 301 platelets. He has 138 sodium, potassium 3.7, BUN 10, creatinine 1.3, GFR is 55. Sugar is 309. Total bili is 0.4, AST is 31, ALT is 38, alk phos is 169, total protein is 4.8. ASSESSMENT AND PLAN: He is being seen by Infectious Disease, Renal, Endocrinology. We are waiting for social staff worker and case management to start long-term care. We will continue aggressive treatment and care on Ferny Davidson. He is here for high blood sugars, low blood sugars, acute kidney injury, anemia, , pneumonia, and diabetes. Zohaib Morgan DO MTDD
[2018-03-28] MEDS: (Novolog) Insulin Aspart, Recombinant 100 u/ml 10 ml vial SC SCH ×7 (08:55→22:00)
[2018-03-28] MEDS: Multiple Vitamins Tab PO SCH (09:58)
[2018-03-28] MEDS: Pantoprazole 40 mg EC Tab PO SCH ×2 (09:59→17:07)
[2018-03-28] MEDS: Lactated Ringer's 500 ML IV SCH (11:06)
--- NOTE | 2018-03-28 18:19 | PN ---
DATE: 03/28/2018 ENDOCRINOLOGY FOLLOWUP NOTE LOCATION: Room 557. SUBJECTIVE: This is a 72-year-old male with recent uncontrolled type 2 insulin-requiring diabetes, now being followed closely for metabolic management. Once again, he has extremes of glycemic fluctuations as noted overnight and the glucose levels were actually 313 this morning and now it is 182 at lunchtime as noted. His bedtime glucose was 309 with some supervisor soldering glucose of 297 at 3:00 a.m. His chemistries show a BUN of 11, sodium 135, potassium 4.2, chloride 106, CO2 22, glucose 266, and creatinine 1.3. So at this time, we will continue the modifying basal insulin with Levemir increased to 4 units subcutaneous at bedtime daily to start tonight. We will continue the low dose prandial insulin with NovoLog given as 2 units t.i.d. before meals as ordered. We will obtain serial chemistries and supplement accordingly as needed. We will follow. Myrna Sheffield MD
[2018-03-28] MEDS: Insulin Detemir 100 units/ml Vial (Levemir) SC SCH (22:00)
[2018-03-29] MEDS: (Novolog) Insulin Aspart, Recombinant 100 u/ml 10 ml vial SC SCH ×7 (07:14→21:44)
[2018-03-29] MEDS: Pantoprazole 40 mg EC Tab PO SCH ×2 (09:07→17:37)
[2018-03-29] MEDS: Multiple Vitamins Tab PO SCH (09:07)
--- NOTE | 2018-03-29 12:50 | PN ---
DATE: 03/29/2018 SUBJECTIVE: He was sitting in a visit chair, watching TV. He was comfortable this morning, slept really well. He is on Apresoline, Crestor, Desyrel, Ecotrin, Feosol, Flomax, Haldol, Hexavitamin, Lasix, Levemir, Motrin, Norvasc, NovoLog, Protonix, Remeron, sodium bicarbonate, and Ultram. He is eating okay. He wants to leave. PHYSICAL EXAMINATION: VITAL SIGNS: He has 97.4 temp, 69 pulse, 184/99 blood pressure, it was high when he came this morning blood pressure , 20 respiratory rate, and 100% O2 sat on room air. HEENT: Head is atraumatic, normocephalic. Throat is moist. NECK: Supple. HEART: Regular rate. LUNGS: Decreased breath sounds. Clear to auscultation. ABDOMEN: Soft, nontender. Positive bowel sounds. EXTREMITIES: Trace edema including the feet. LABORATORY DATA: He has a 4.6 white count, 11.8 hemoglobin, 34.9 hematocrit with 284 platelets. He has 135 sodium, potassium 4.2, BUN is 11, creatinine 1.3, GFR is 55, , total bili is 0.5, AST is 20, ALT is 43, alk phos is 54, total protein is 5.2. Stool is negative for occult blood. C. diff is negative. ASSESSMENT AND PLAN: He is being seen by Endocrinology, Infectious Disease, Renal, waiting for Grant Manager to help with long-term care. Encouraged him to eat well, take his medications and we will check his labs tomorrow and hopefully will be going to start to a long-term care sometime this week. He has high blood sugars, low blood sugars, acute kidney injury, he has right pneumonia, anemia, and diabetes, and vitamin K up and down. Zohaib Morgan DO MTDGeoffrey
--- NOTE | 2018-03-29 16:15 | PN ---
DATE: 03/29/2018 ENDOCRINOLOGY FOLLOWUP NOTE LOCATION: In room 557. SUBJECTIVE: This is a 72-year-old male with recent uncontrolled type 2 insulin-requiring diabetes, now being followed closely for metabolic management. His glycemic are fluctuating, but much improved at this time and the glucose values this morning was actually 255 mg/dL. However, his bedtime glucose was still elevated at 360 mg/dL. LABORATORY DATA: His chemistry showed a BUN of 11, sodium 135, potassium 4.2, chloride 109, CO2 of 22, glucose 266, and creatinine 1.3. ASSESSMENT AND PLAN: So at this time, we will modify once again his basal and bolus insulin regimen and increase the Levemir to 4 units subcutaneously at bedtime daily to start tonight. We will continue the low dose Novolog insulin given as three units subcutaneously t.i.d. before meals as ordered. We will obtain serial chemistries and supplement accordingly as needed. We will follow. Myrna Sheffield MD
[2018-03-29] MEDS: Insulin Detemir 100 units/ml Vial (Levemir) SC SCH (21:41)
[2018-03-30 06:51] LABS: HEMOGLOBIN 11.2 g/dL (12.0-18.0); MEAN CELL VOLUME 83.5 fL (80.0-94.0); MEAN CORPUSCULAR HEMOGLOBIN 27.9 pg (27.0-31.0); MEAN CORPUSCULAR HGB CONC 33.4 g/dL (33.0-37.0); MEAN PLATELET VOLUME 8.3 fL (7.2-11.7); RBC 4.02 Mil/uL (4.40-5.90); RED CELL DISTRIBUTION WIDTH 18.6 % (11.5-14.5); WHITE BLOOD COUNT 4.6 K/uL (4.8-10.8)
[2018-03-30 07:02] LABS: ALB/GLOB RATIO 0.8 (1.0-2.1); ALBUMIN 2.3 g/dL (3.5-5.0); CALCIUM 8.2 mg/dl (8.6-10.4)
[2018-03-30] MEDS: (Novolog) Insulin Aspart, Recombinant 100 u/ml 10 ml vial SC SCH ×7 (08:17→21:36)
[2018-03-30] MEDS: Pantoprazole 40 mg EC Tab PO SCH ×2 (10:22→18:13)
[2018-03-30] MEDS: Multiple Vitamins Tab PO SCH (10:23)
--- NOTE | 2018-03-30 11:26 | PN ---
DATE: 03/30/2018 SUBJECTIVE: I saw Ferny resting comfortably in bed this morning, he had a good night sleep. He wants to go to some place. He is on Apresoline, Crestor, Desyrel, Feosol, Ecotrin, Flomax, Haldol, vitamins, Lasix, Levemir, Motrin, Norvasc, NovoLog, Protonix, Remeron, sodium bicarbonate, Tylenol, and Ultram. PHYSICAL EXAMINATION: VITAL SIGNS: He has 97.9 temp, 82 pulse, 144/86 blood pressure, 20 respiratory rate, and 100% O2 sat on room air. HEENT: Head is atraumatic, normocephalic. HEART: Regular rate. LUNGS: Decreased breath sounds, but clear. ABDOMEN: Soft. EXTREMITIES: No edema. LABORATORY DATA: He has a 4.6 white count, 11.8 hemoglobin, 34.9 hematocrit with 284 platelets. He has 135 sodium, potassium 4.2, BUN is 11, creatinine 1.3, GFR is 55, last sugar is 285, calcium is 8.1. Total bili is 0.5. AST is 20, ALT is 43, alk phos is 48. ASSESSMENT AND PLAN: He is being seen by Endocrinology, Infectious Diseases, Renal. Awaiting Creative Strategist, case management to help us with discharge planning to subacute rehabilitation to long-term care; hopefully, could get this week. He had pneumonia, diabetes. His blood sugar is up and down. He has kidney injury. We will check his labs tomorrow. Zohaib Morgan DO
--- NOTE | 2018-03-30 15:53 | CP.PCM.PN ---
Subjective - Date & Time of Evaluation Date of Evaluation: 03/30/18 Time of Evaluation: 15:52 - Subjective Subjective: Nephrology Consultation Note: Assessment: stable Acute Kidney Injury (N17.9) resolved HAGMA with ketoacidosis and hyperkalemia Pneumonia, AMS with delirium Uncontrolled diabetes mellitus with hypoglycemia and hyperglycemia Diabetic chronic Kidney Disease (E11.22) Hypertensive Chronic Kidney Disease (I12.9) Chronic Kidney Disease (N18.3) Stage 3 with ? mg proteinuria (R80.9) likely due to DM Anemia (D64.9), Vit D def with Secondary Hyperparathyroidism (E21.1), HTN (I12.9) BPH, diabetic neuropathy, chronic pancreatitis gastric ulcer, hx of etoh and smoking in past Vit D def Plan No acute need for renal replacement therapy at this time. Hypertension control with meds as ordered. Patient not on ACEI/ARB due to KHALIDA tendency and hyperkalemia. increased hydralazine 100 mg tid Monitor Input/Output, daily weights and renal function with basic metabolic panel added sodium bicarbonate 650 mg 2 times a day, weekly Vit D continue with iron TID multivitamin supplements. PRBC as needed. continue with Flomax hold lasix as cr on higher side low K diet. kayexylate as needed ID, GI and endocrine following work up as ordered Dose meds/antibiotics for reduced GFR. Avoid nephrotoxins/NSAIDs Glycemic control Further work up/management as per primary team pt stable for d/c from renal perspective Thanks for allowing me to participate in care of your patient. Will follow patient with you. Please call if any Qs. had d/w team Dr Juan Diego Light Office: [phone] reason for consult: KHALIDA, CKD HPI:Pt is a 72 M with hx of uncontrolled diabetes Mellitus (30 years) with retinopathy, hypertension (15-20 years), CKD 3, s/p Right total hip replacement, gout, chronic pancreatitis, gastric ulcer with hiatal hernia with multiple admissions to hospital with hypo and hyperglycemia/DKA, recently for PNA, AMS with delirium ? dementia came back with behavioral changes. seen by psych Renal consult for kidney disease management pt has uncontrolled DM with sugars ranging from 20 to 500+ ROS: denies CP/SOB. denies nausea and improved abdomen pain.waiting to go to rehab. had endoscopic eval Physical Examination: General Appearance: in no acute respiratory distress, co-operative Vitals reviewed and noted as below Head; Atraumatic, normocephalic ENT: no ulcers no thrush. Tongue is midline. Oropharynx: no rash or ulcers. EYES: Pupils are equal, round and reactive to light accommodation. Eye muscles and extraocular movement intact. Sclera is anicteric. Neck; supple no lymphadenopathy, no thyromegaly or bruit Lungs: Normal respiratory rate/effort. Breath sounds bilateral equal and clear Heart: Normal rate. s1s2 normal. No rub or gallop. SM at LSB+. loud S2 Extremities: no edema. No varicose veins Neurological: Patient is AO x 3 no focal deficit Skin: Warm and dry. Normal turgor. No rash. Palpitation: Normal elasticity for age Abdomen: Abdomen is soft. Bowel sounds +. There is no abdominal tenderness, no guarding/rigidity no organomegaly Psych: normal affect/mood and good insight MSK: no joint tenderness or swelling. Digits and nails normal, no deformity : kidney or bladder not palpable Labs/imaging reviewed. Past medical history, past surgical history, family history, social history, allergy reviewed and noted as below Family hx: no hx of CKD. Rest non-contributory Work up: 06/11/2017: SPEP neg [place]/lambda ratio normal although faint free lambda in JANI renal sono 7 mm cyst normal LVEF on echo Objective - Vital Signs/Intake and Output Vital Signs (last 24 hours): Temp Pulse Resp BP Pulse Ox 97.7 F 78 20 154/84 H 100 03/30/18 07:31 03/30/18 07:31 03/30/18 07:31 03/30/18 10:22 03/30/18 07:31 - Medications Medications: Current Medications Acetaminophen (Tylenol 325mg Tab) 650 mg PO Q4H PRN PRN Reason: moderate pain Last Admin: 03/29/18 16:39 Dose: 650 mg Amlodipine Besylate (Norvasc) 10 mg PO DAILY [facility] Last Admin: 03/30/18 10:23 Dose: 10 mg Aspirin (Ecotrin) 81 mg PO DAILY [facility] Last Admin: 03/30/18 10:23 Dose: 81 mg Dextrose (Dextrose 50% Inj) 0 ml IV STAT PRN; Protocol PRN Reason: Hypoglycemia Protocol Dextrose (Glutose 15) 15 gm PO ONCE PRN; Protocol PRN Reason: Hypoglycemia Protocol Ergocalciferol (Drisdol 50,000 Intl Units Cap) 1 cap PO Q7D [facility] Last Admin: 03/27/18 13:49 Dose: 1 cap Ferrous Sulfate (Feosol) 325 mg PO TID [facility] Last Admin: 03/30/18 14:39 Dose: 325 mg Furosemide (Lasix) 20 mg IVP ONCE PRN PRN Reason: Other Last Admin: 03/20/18 20:07 Dose: 20 mg Glucagon (Glucagen Diagnostic Kit) 1 mg IM STAT PRN; Protocol PRN Reason: Hypoglycemia Protocol Haloperidol (Haldol) 1 mg PO BID [facility] Last Admin: 03/30/18 10:23 Dose: 1 mg Hydralazine HCl (Apresoline) 100 mg PO TID [facility] Last Admin: 03/30/18 14:38 Dose: 100 mg Insulin Aspart (Novolog) 0 unit SC [facility] Last Admin: 03/30/18 11:52 Dose: Not Given Insulin Aspart (Novolog) 3 unit SC AC [facility] Last Admin: 03/30/18 11:52 Dose: 3 units Insulin Detemir (Levemir) 4 unit SC [facility] Last Admin: 03/29/18 21:41 Dose: 4 unit Mirtazapine (Remeron) 15 mg PO [facility] Last Admin: 03/29/18 21:41 Dose: 15 mg Multivitamins (Hexavitamin) 1 tab PO DAILY [facility] Last Admin: 03/30/18 10:23 Dose: 1 tab Pantoprazole Sodium (Protonix Ec Tab) 40 mg PO BID [facility] Last Admin: 03/30/18 10:22 Dose: 40 mg Rosuvastatin Calcium (Crestor) 5 mg PO [facility] Last Admin: 03/29/18 21:41 Dose: 5 mg Sodium Bicarbonate (Sodium Bicarbonate Tab) 650 mg PO BID [facility] Last Admin: 03/30/18 10:23 Dose: 650 mg Tamsulosin HCl (Flomax) 0.4 mg PO DAILY [facility] Last Admin: 03/30/18 10:22 Dose: 0.4 mg Tramadol HCl (Ultram) 50 mg PO TID PRN PRN Reason: PAIN, SEVERE 8-10 Last Admin: 03/30/18 00:41 Dose: 50 mg Trazodone HCl (Desyrel) 50 mg PO HS [facility] Last Admin: 03/29/18 21:41 Dose: 50 mg - Labs Labs: 03/30/18 06:39 03/30/18 06:39 PT 11.8 SECONDS (9.7-12.2) 03/25/18 11:39 INR 1.1 03/25/18 11:39 APTT 33 SECONDS (21-34) 03/19/18 02:14
[2018-03-30] MEDS: Insulin Detemir 100 units/ml Vial (Levemir) SC SCH (21:37)
[2018-03-30] MEDS ORDERED: Insulin Detemir 100 units/ml Vial (Levemir) SC ONE (23:00)
--- NOTE | 2018-03-30 23:41 | PN ---
DATE: 03/30/2018 LOCATION: Room 559. SUBJECTIVE: This is a 72-year-old male with recent uncontrolled type 2 insulin-requiring diabetes, now being followed closely for metabolic management. His glycemic levels are fluctuating but improved, and the latest glucose levels have ranged from 194 to 230 mg/dL today and it was 285 at bedtime last night. LABORATORY DATA: The chemistry showed a BUN of 19, sodium 135, potassium 5.4, chloride 107, CO2 of 22, glucose 210 and creatinine 1.9. PLAN: So at this time we will continue to modify basal and bolus insulin regimen with NovoLog given as 3 units t.i.d. before meals as ordered. We will also continue the Levemir given as 4 units subcu at bedtime daily as given. We will obtain serial chemistries and supplement accordingly as needed. We will follow. Myrna Sheffield MD
[2018-03-31 01:16] VITALS: RESP 20
[2018-03-31 07:52] LABS: HEMOGLOBIN 12.5 g/dL (12.0-18.0); MEAN CORPUSCULAR HGB CONC 33.3 g/dL (33.0-37.0); MEAN PLATELET VOLUME 7.9 fL (7.2-11.7); RBC 4.47 Mil/uL (4.40-5.90); RED CELL DISTRIBUTION WIDTH 18.4 % (11.5-14.5); WHITE BLOOD COUNT 3.9 K/uL (4.8-10.8)
[2018-03-31] MEDS: (Novolog) Insulin Aspart, Recombinant 100 u/ml 10 ml vial SC SCH ×4 (08:02→11:50)
[2018-03-31 08:14] VITALS: TEMP 97.5; O2SAT 99
[2018-03-31 08:25] LABS: ALB/GLOB RATIO 0.8 (1.0-2.1); ALBUMIN 2.6 g/dL (3.5-5.0); CALCIUM 8.1 mg/dl (8.6-10.4)
[2018-03-31] MEDS: Pantoprazole 40 mg EC Tab PO SCH (10:02)
[2018-03-31] MEDS: Multiple Vitamins Tab PO SCH (10:02)
[2018-03-31 10:03] VITALS: BP 135/83; PULSE 96
[2018-03-31] MEDS ORDERED: Sod Polystyrene Sulf 15 gm/60 ml Susp PO ONE (10:30)
--- NOTE | 2018-03-31 11:08 | CP.PCM.PN ---
Subjective - Date & Time of Evaluation Date of Evaluation: 03/31/18 Time of Evaluation: 11:08 - Subjective Subjective: Nephrology Consultation Note: Assessment: stable Acute Kidney Injury (N17.9) resolved HAGMA with ketoacidosis and hyperkalemia Pneumonia, AMS with delirium Uncontrolled diabetes mellitus with hypoglycemia and hyperglycemia Diabetic chronic Kidney Disease (E11.22) Hypertensive Chronic Kidney Disease (I12.9) Chronic Kidney Disease (N18.3) Stage 3 with ? mg proteinuria (R80.9) likely due to DM Anemia (D64.9), Vit D def with Secondary Hyperparathyroidism (E21.1), HTN (I12.9) BPH, diabetic neuropathy, chronic pancreatitis gastric ulcer, hx of etoh and smoking in past Vit D def Plan No acute need for renal replacement therapy at this time. Hypertension control with meds as ordered. Patient not on ACEI/ARB due to KHALIDA tendency and hyperkalemia. increased hydralazine 100 mg tid Monitor Input/Output, daily weights and renal function with basic metabolic panel added sodium bicarbonate 650 mg 2 times a day, weekly Vit D continue with iron TID multivitamin supplements. PRBC as needed. continue with Flomax hold lasix as cr on higher side. will give IVF as NS @ 50 ml/hr x 1 day low K diet. kayexylate as needed. outpt veltassa 8.4 gram once a day ID, GI and endocrine following work up as ordered Dose meds/antibiotics for reduced GFR. Avoid nephrotoxins/NSAIDs Glycemic control Further work up/management as per primary team pt stable for d/c from renal perspective Thanks for allowing me to participate in care of your patient. Will follow patient with you. Please call if any Qs. had d/w team Dr Juan Diego [facility] Office: [phone] reason for consult: KHALIDA, CKD HPI:Pt is a 72 M with hx of uncontrolled diabetes Mellitus (30 years) with retinopathy, hypertension (15-20 years), CKD 3, s/p Right total hip replacement, gout, chronic pancreatitis, gastric ulcer with hiatal hernia with multiple admissions to hospital with hypo and hyperglycemia/DKA, recently for PNA, AMS with delirium ? dementia came back with behavioral changes. seen by psych Renal consult for kidney disease management pt has uncontrolled DM with sugars ranging from 20 to 500+ ROS: denies CP/SOB. denies nausea and improved abdomen pain.waiting to go to rehab. had endoscopic eval Physical Examination: General Appearance: in no acute respiratory distress, co-operative Vitals reviewed and noted as below Head; Atraumatic, normocephalic ENT: no ulcers no thrush. Tongue is midline. Oropharynx: no rash or ulcers. EYES: Pupils are equal, round and reactive to light accommodation. Eye muscles and extraocular movement intact. Sclera is anicteric. Neck; supple no lymphadenopathy, no thyromegaly or bruit Lungs: Normal respiratory rate/effort. Breath sounds bilateral equal and clear Heart: Normal rate. s1s2 normal. No rub or gallop. SM at LSB+. loud S2 Extremities: no edema. No varicose veins Neurological: Patient is AO x 3 no focal deficit Skin: Warm and dry. Normal turgor. No rash. Palpitation: Normal elasticity for age Abdomen: Abdomen is soft. Bowel sounds +. There is no abdominal tenderness, no guarding/rigidity no organomegaly Psych: normal affect/mood and good insight MSK: no joint tenderness or swelling. Digits and nails normal, no deformity : kidney or bladder not palpable Labs/imaging reviewed. Past medical history, past surgical history, family history, social history, allergy reviewed and noted as below Family hx: no hx of CKD. Rest non-contributory Work up: 06/11/2017: SPEP neg [place]/lambda ratio normal although faint free lambda in JANI renal sono 7 mm cyst normal LVEF on echo Objective - Vital Signs/Intake and Output Vital Signs (last 24 hours): Temp Pulse Resp BP Pulse Ox 97.5 F L 96 H 20 135/83 99 03/31/18 07:14 03/31/18 10:03 03/31/18 07:14 03/31/18 10:03 03/31/18 07:14 - Medications Medications: Current Medications Acetaminophen (Tylenol 325mg Tab) 650 mg PO Q4H PRN PRN Reason: moderate pain Last Admin: 03/29/18 16:39 Dose: 650 mg Amlodipine Besylate (Norvasc) 10 mg PO DAILY [facility] Last Admin: 03/31/18 10:02 Dose: 10 mg Aspirin (Ecotrin) 81 mg PO DAILY [facility] Last Admin: 03/31/18 10:02 Dose: 81 mg Dextrose (Dextrose 50% Inj) 0 ml IV STAT PRN; Protocol PRN Reason: Hypoglycemia Protocol Dextrose (Glutose 15) 15 gm PO ONCE PRN; Protocol PRN Reason: Hypoglycemia Protocol Last Admin: 03/30/18 21:24 Dose: 15 gm Ergocalciferol (Drisdol 50,000 Intl Units Cap) 1 cap PO Q7D [facility] Last Admin: 03/27/18 13:49 Dose: 1 cap Ferrous Sulfate (Feosol) 325 mg PO TID [facility] Last Admin: 03/31/18 10:02 Dose: 325 mg Furosemide (Lasix) 20 mg IVP ONCE PRN PRN Reason: Other Last Admin: 03/20/18 20:07 Dose: 20 mg Glucagon (Glucagen Diagnostic Kit) 1 mg IM STAT PRN; Protocol PRN Reason: Hypoglycemia Protocol Haloperidol (Haldol) 1 mg PO BID [facility] Last Admin: 03/31/18 10:02 Dose: 1 mg Hydralazine HCl (Apresoline) 100 mg PO TID [facility] Last Admin: 03/31/18 10:02 Dose: 100 mg Insulin Aspart (Novolog) 0 unit SC [facility] Last Admin: 03/31/18 08:02 Dose: Not Given Insulin Aspart (Novolog) 3 unit SC AC [facility] Last Admin: 03/31/18 09:16 Dose: 3 units Insulin Detemir (Levemir) 4 unit SC HS [facility] Last Admin: 03/30/18 21:37 Dose: Not Given Mirtazapine (Remeron) 15 mg PO HS [facility] Last Admin: 03/30/18 23:03 Dose: 15 mg Multivitamins (Hexavitamin) 1 tab PO DAILY [facility] Last Admin: 03/31/18 10:02 Dose: 1 tab Pantoprazole Sodium (Protonix Ec Tab) 40 mg PO BID [facility] Last Admin: 03/31/18 10:02 Dose: 40 mg Rosuvastatin Calcium (Crestor) 5 mg PO HS [facility] Last Admin: 03/30/18 23:03 Dose: 5 mg Sodium Bicarbonate (Sodium Bicarbonate Tab) 650 mg PO BID [facility] Last Admin: 03/31/18 10:02 Dose: 650 mg Tamsulosin HCl (Flomax) 0.4 mg PO DAILY [facility] Last Admin: 03/31/18 10:02 Dose: 0.4 mg Tramadol HCl (Ultram) 50 mg PO TID PRN PRN Reason: PAIN, SEVERE 8-10 Last Admin: 03/30/18 00:41 Dose: 50 mg Trazodone HCl (Desyrel) 50 mg PO HS [facility] Last Admin: 03/30/18 23:03 Dose: 50 mg - Labs Labs: 03/31/18 07:41 03/31/18 07:41 PT 11.8 SECONDS (9.7-12.2) 03/25/18 11:39 INR 1.1 03/25/18 11:39 APTT 33 SECONDS (21-34) 03/19/18 02:14
[2018-03-31] MEDS ORDERED: Sodium Chloride 0.9% 1,000 ML IV SCH (11:15)
--- NOTE | 2018-03-31 22:19 | PN ---
DATE: 03/31/2018 ENDOCRINOLOGY FOLLOWUP NOTE LOCATION: Room 559. This is a 72-year-old male with recent uncontrolled type 2 insulin-requiring diabetes, once again developing overnight symptomatic bouts of hypoglycemia despite a very good oral intake at dinnertime as per the nursing staff. His glucose levels dropped to 31 with a repeat level of 105 to 168 mg early this morning as noted. They held the usual bedtime dose of Levemir given as 4 units and only gave 2 units as per advice and instructions accordingly. Today, his glucose valve was 410 mg/dL at lunchtime and 289 at prebreakfast time. His chemistry showed a BUN of 23, sodium 133, potassium 5.1, chloride 102, CO2 of 21, glucose 398, and creatinine 1.9. So at this time, we will continue the same basal and bolus insulin regimen upon discharge today with Levemir given as 4 units subcutaneous at bedtime daily and NovoLog given as 3 units t.i.d. with meals as ordered. He will follow with his primary physician outpatient diabetic management. Myrna Sheffield MD
--- NOTE | 2018-04-01 06:02 | DS ---
HISTORY OF PRESENT ILLNESS: Ferny is waiting to go to start a long-term care placement. He is happy today that he is going to [facility]. He is comfortable getting out of the bed to chair. No chest pain or shortness of breath. No abdominal pain. He is walking a little bit better. PHYSICAL EXAMINATION: VITAL SIGNS: 98.4 temperature, 72 pulse, 131/76 blood pressure, 20 respiratory rate, 98% O2 saturation on room air. HEENT: Head is atraumatic and normocephalic. Throat is moist. NECK: Supple. HEART: Regular rate. LUNGS: Decreased breath sounds. Poor inspiration. Clear to auscultation. ABDOMEN: Soft. Nontender. Positive bowel sounds. No guarding. No rebound. No CVA tenderness. EXTREMITIES: Have no edema. He can move all four extremities well. SKIN: was intact. MEDICATIONS: He is currently on Apresoline, Crestor, Desyrel, Ecotrin, Feosol, Flomax, Haldol, vitamins, Lasix, Norvasc, NovoLog, Protonix, Remeron, and Ultram. LABORATORY DATA: He has 4.6 white count, 11.2 hemoglobin, 32.6 hematocrit with 235 platelets. Blood sugar is 168 that is not bad for him. Sodium 135; potassium is 5.4 that is new, that is from 3.7 and 4.2; his BUN is 11; creatinine 1.3; GFR 55. AST 20, ALT 42, alkaline phosphatase 54. I am going to repeat potassium at this time. I am asked to give him some Kayexalate. He has been seen by Endocrinology, Renal and Infectious Disease. He is also going to get antibiotics. We will also get him to subacute rehab. Today, he is not on any potassium, may be was stabilized. I have discussed with the nurse who will do a stat chemistry. goes to [facility] for subacute rehab for long-term care. He had multiple issues, elevated blood sugars, low blood sugars, acute kidney injury, right pneumonia. Zohaib Morgan DO MTD
== END 2018-03-31 13:29 | DRG 871 ==
LOC: C.ER 23:42 → C.9E 03-19 03:20 → C.5S 03-19 04:34
PROVIDERS: ADMIT Family Medicine; ATTEND Family Medicine
PROC: 0DBL8ZX Excision of Transverse Colon, Via Natural or Artificial Opening Endoscopic, Diagnostic (ICD-10-PCS; 2018-03-25)
PROC: 0DBM8ZX Excision of Descending Colon, Via Natural or Artificial Opening Endoscopic, Diagnostic (ICD-10-PCS; 2018-03-25)
PROC: 0DB68ZX Excision of Stomach, Via Natural or Artificial Opening Endoscopic, Diagnostic (ICD-10-PCS; principal; 2018-03-25 12:40)
PROC: 0DBK8ZX Excision of Ascending Colon, Via Natural or Artificial Opening Endoscopic, Diagnostic (ICD-10-PCS; 2018-03-25 12:40)
DX: A41.9 Sepsis, unspecified organism (principal); J18.9 Pneumonia, unspecified organism; E11.10 Type 2 diabetes mellitus with ketoacidosis without coma; N17.9 Acute kidney failure, unspecified; G93.41 Metabolic encephalopathy; I13.0 Hypertensive heart and chronic kidney disease with heart failure and stage 1 through stage 4 chronic kidney disease, or unspecified chronic kidney disease; E87.2 Acidosis; K22.10 Ulcer of esophagus without bleeding; N25.81 Secondary hyperparathyroidism of renal origin; K86.1 Other chronic pancreatitis; E87.5 Hyperkalemia; E11.22 Type 2 diabetes mellitus with diabetic chronic kidney disease; E11.649 Type 2 diabetes mellitus with hypoglycemia without coma; I25.10 Atherosclerotic heart disease of native coronary artery without angina pectoris; I50.9 Heart failure, unspecified; K29.60 Other gastritis without bleeding; K44.9 Diaphragmatic hernia without obstruction or gangrene; D12.2 Benign neoplasm of ascending colon; D12.4 Benign neoplasm of descending colon; D12.3 Benign neoplasm of transverse colon; K64.1 Second degree hemorrhoids; N18.3 Chronic kidney disease, stage 3 (moderate); E86.0 Dehydration; D64.9 Anemia, unspecified; N40.0 Benign prostatic hyperplasia without lower urinary tract symptoms; F03.90 Unspecified dementia, unspecified severity, without behavioral disturbance, psychotic disturbance, mood disturbance, and anxiety; E78.5 Hyperlipidemia, unspecified; E11.319 Type 2 diabetes mellitus with unspecified diabetic retinopathy without macular edema; E55.9 Vitamin D deficiency, unspecified; R80.9 Proteinuria, unspecified; E78.00 Pure hypercholesterolemia, unspecified; H54.62 Unqualified visual loss, left eye, normal vision right eye; Z96.641 Presence of right artificial hip joint; Z87.01 Personal history of pneumonia (recurrent); Z86.73 Personal history of transient ischemic attack (TIA), and cerebral infarction without residual deficits; Z79.4 Long term (current) use of insulin; Z87.11 Personal history of peptic ulcer disease; Z87.891 Personal history of nicotine dependence; Z91.19 Patient's noncompliance with other medical treatment and regimen; Z83.3 Family history of diabetes mellitus

== ENCOUNTER 2018-05-23 12:06 | Inpatient (IN) | payer MEDICARE ==
[2018-05-23 12:07] VITALS: BMI 21.6
[2018-05-23] MEDS ORDERED: Sodium Chloride 0.9% 1,000 ML IV ONE (13:01)
[2018-05-23] MEDS ORDERED: Morphine 4 MG/ML VIAL IV ONE (13:01)
--- NOTE | 2018-05-23 13:22 | C.PDOC ---
History Of Present Illness 72 year old male with a history of c-diff presents to the emergency department with complaints of headache for the past year which has been worsening over the last week. Patient denies any head trauma. As per patient's , the patient has had generalized weakness and diarrhea, for which he was taking antibiotics while at [facility], but since signing out of the facility on Friday, he has not taken those antibiotics. Patient does not recall the name of the antibiotics he was taking. He reports right leg pain, but denies fever, chills, chest pain, shortness of breath, and neurological symptoms. Time Seen by Provider: 05/23/18 12:18 Chief Complaint (Nursing): Headache History Per: Patient, Family () Onset/Duration Of Symptoms: Other (one year, worse for the past week) Current Symptoms Are (Timing): Worse Quality: Aching Associated Symptoms: denies: Nausea, Vomiting, Extremity Weakness Past Medical History Reviewed: Historical Data, Nursing Documentation, Vital Signs Vital Signs: Last Vital Signs Temp 98.6 F 05/23/18 12:15 Pulse 86 05/23/18 12:15 Resp 18 05/23/18 12:15 BP 131/81 05/23/18 12:15 Pulse Ox 99 05/23/18 12:15 - Medical History PMH: Anemia, Arthritis, CHF, Dementia, Diabetes, Gastrointestinal Ulcer, HTN, Hypercholesterolemia, Pancreatitis, Peripheral Edema, Pneumonia, Chronic Kidney Disease, Seizures (pt denies) Denies: Deep Vein Thrombosis Surgical History: Endoscopy Denies: Pacemaker - [facility] Procedures FLORESITA ING HRN REP-GRFT NOS (05/04/14) EXCISION OF ASCENDING COLON, ENDO, DIAGN (03/19/18) EXCISION OF DESCENDING COLON, ENDO, DIAGN (03/19/18) EXCISION OF STOMACH, ENDO, DIAGN (03/19/18) EXCISION OF TRANSVERSE COLON, ENDO, DIAGN (03/19/18) INSERTION OF INFUSION DEV INTO R BRACH VEIN, PERC APPROACH (03/08/18) INSERTION OF INFUSION DEV INTO R FEMOR VEIN, PERC APPROACH (09/15/17) INSERTION OF INFUSION DEV INTO SUP VENA CAVA, PERC APPROACH (01/29/18) INSERTION OF INFUSION DEVICE INTO UPPER VEIN, PERC APPROACH (09/25/17) INTRODUCE OF OTH THERAP SUBST INTO RESP TRACT, VIA OPENING (08/22/17) ULTRASONOGRAPHY OF RIGHT UPPER EXTREMITY VEINS, GUIDANCE (03/08/18) ULTRASONOGRAPHY OF SUPERIOR VENA CAVA, GUIDANCE (12/16/17) Family History: States: No Known Family Hx - Social History Hx Tobacco Use: No Hx Alcohol Use: Yes (Ex Drinker) Hx Substance Use: No - Immunization History Hx Tetanus Toxoid Vaccination: Yes Hx Influenza Vaccination: Yes Hx Pneumococcal Vaccination: Yes Review Of Systems Constitutional: Negative for: Fever, Chills Cardiovascular: Negative for: Chest Pain Respiratory: Negative for: Shortness of Breath Gastrointestinal: Positive for: Diarrhea. Negative for: Nausea, Vomiting Neurological: Positive for: Weakness, Headache Physical Exam - Physical Exam Appears: Well, Non-toxic, No Acute Distress Skin: Normal Color, Warm, Dry Head: Atraumatic, Normacephalic Eye(s): bilateral: Normal Inspection, PERRL, EOMI Nose: Normal Oral Mucosa: Moist Neck: Normal, Supple Chest: Symmetrical, No Tenderness Cardiovascular: Rhythm Regular, No Murmur Respiratory: Normal Breath Sounds, No Rales, No Rhonchi, No Wheezing Gastrointestinal/Abdominal: Soft, Tenderness (diffuse abdominal tenderness), No Guarding, No Rebound Extremity: Normal ROM (all extremities) Pulses: Left Dorsalis Pedis: Normal, Right Dorsalis Pedis: Normal Neurological/Psych: Oriented x3, Normal Speech, Normal Cognition, Normal Motor, Normal Sensation ED Course And Treatment - Laboratory Results Result Diagrams: 05/23/18 13:37 05/23/18 20:19 O2 Sat by Pulse Oximetry: 99 (RA) Pulse Ox Interpretation: Normal - Radiology CXR: Read By Radiologist CXR Interpretation: Yes: No Acute Disease - CT Scan/US Head Other Rad Studies (CT/US): Read By Radiologist CT/US Interpretation: Date of service: 05/23/2018. PROCEDURE: CT HEAD WITHOUT CONTRAST. HISTORY: headache. COMPARISON: 10/06/2017. TECHNIQUE: Axial computed tomography images were obtained through the head/brain without intravenous contrast. Radiation dose: Total exam DLP = 1126.57 mGy-cm. This CT exam was performed using one or more of the following dose reduction techniques: Automated exposure control, adjustment of the mA and/or kV according to patient size, and/or use of iterative reconstruction technique. FINDINGS: HEMORRHAGE: No intracranial hemorrhage. BRAIN: There are moderate chronic microangiopathic changes. There is no mass, mass effect or abnormal extra-axial fluid collection. There is no territorial infarction. The midline sagittal structures are normal.There are coarse atherosclerotic calcifications in the cavernous carotid and vertebral arteries. VENTRICLES: There is mild age- related global parenchymal volume loss and proportionate enlargement of the ventricles and cortical sulci. CALVARIUM: There is no calvarial fracture or extracranial soft tissue swelling. PARANASAL SINUSES: There is redemonstration of high attenuation soft tissue in the right frontal sinus and osteoneogenesis of the right frontal sinus. The remaining included paranasal sinuses are clear. MASTOID AIR CELLS: Predominantly clear. OTHER FINDINGS: None. IMPRESSION: No acute intracranial abnormality. Moderate chronic microangiopathic changes and moderate age-related global parenchymal volume loss. High density soft tissue in the right frontal sinus with osteoneogenesis could represent chronic sinusitis with inspissated secretions however superimposed allergic fungal sinusitis is also a consideration. Clinical follow-up is advised. Medical Decision Making Medical Decision Making: Plan: VBG CT Head Chemistry Bloodwork Morphine 2mg IVP NaCl IV Fluids Urinalysis CT head done for headache and was unremarkable. Fingerstick done, glucose >500. 2L NS bolus initiated. Labs done, glucose in the 700's with pH 7.26 and elevated ketones. No anion gap. K=3.0 so KCl 20mg ivpb ordered prior to insulin administration. Case discussed with Dr. Morgan, patient's PMD. Accepts patient to his service. Would like ICU admission due to DKA. Case discussed with Dr. Sandy who accepts patient to the ICU. Disposition - Disposition Disposition: HOSPITALIZED Disposition Time: 15:25 Condition: FAIR - Clinical Impression Clinical Impression: Headache, DKA (diabetic ketoacidoses) - Scribe Statement The provider has reviewed the documentation as recorded by the Scribe (Antoine Travis) Provider Attestation: All medical record entries made by the Scribe were at my direction and personally dictated by me. I have reviewed the chart and agree that the record accurately reflects my personal performance of the history, physical exam, medical decision making, and the department course for this patient. I have also personally directed, reviewed, and agree with the discharge instructions and disposition.
[2018-05-23 13:43] LABS: BASO # 0.1 K/uL (0.0-0.2); BASO % 0.6 % (0.0-2.0); EOS # 0.2 K/uL (0.0-0.7); EOS % 1.7 % (0.0-4.0); LYMPH # 0.5 K/uL (1.0-4.3); LYMPH % 5.5 % (20.0-40.0); MEAN CELL VOLUME 85.2 fL (80.0-94.0); MEAN CORPUSCULAR HEMOGLOBIN 26.9 pg (27.0-31.0); MEAN CORPUSCULAR HGB CONC 31.6 g/dL (33.0-37.0); MEAN PLATELET VOLUME 7.4 fL (7.2-11.7); MONO # 0.6 K/uL (0.0-0.8); MONO % 6.3 % (0.0-10.0); NEUT # 8.2 K/uL (1.8-7.0); NEUT % 85.9 % (50.0-75.0); RBC 3.75 Mil/uL (4.40-5.90); RED CELL DISTRIBUTION WIDTH 17.5 % (11.5-14.5)
[2018-05-23 13:47] LABS: HEMOGLOBIN 10.1 g/dL (12.0-18.0); PLATELET COUNT 371 K/uL (130-400); WHITE BLOOD COUNT 9.6 K/uL (4.8-10.8)
[2018-05-23 13:59] LABS: ALB/GLOB RATIO 0.9 (1.0-2.1); ALBUMIN 2.9 g/dL (3.5-5.0); ALT/SGPT 28 U/L (21-72); AST/SGOT 10 U/L (17-59); BLOOD UREA NITROGEN 19 mg/dL (9-20); CALCIUM 8.3 mg/dl (8.6-10.4); GFR NON-AFRICAN AMERICAN 55
[2018-05-23 14:09] LABS: ANISOCYTOSIS SLIGHT; BANDS 7 % (0-2); EOSINOPHIL 4 % (0-4); LYMPHOCYTE 5 % (20-40); MONOCYTE 5 % (0-10); NEUTROPHIL 79 % (50-75); PLATELET ESTIMATE NORMAL (NORMAL); TOTAL CELLS COUNTED 100
[2018-05-23 14:10] LABS: HYPOCHROMIC SLIGHT; POLYCHROMIC SLIGHT
--- NOTE | 2018-05-23 14:10 | CT ---
Date of service: 05/23/2018 PROCEDURE: CT HEAD WITHOUT CONTRAST. HISTORY: headache COMPARISON: 10/06/2017. TECHNIQUE: Axial computed tomography images were obtained through the head/brain without intravenous contrast. Radiation dose: Total exam DLP = 1126.57 mGy-cm. This CT exam was performed using one or more of the following dose reduction techniques: Automated exposure control, adjustment of the mA and/or kV according to patient size, and/or use of iterative reconstruction technique. FINDINGS: HEMORRHAGE: No intracranial hemorrhage. BRAIN: There are moderate chronic microangiopathic changes. There is no mass, mass effect or abnormal extra-axial fluid collection. There is no territorial infarction. The midline sagittal structures are normal.There are coarse atherosclerotic calcifications in the cavernous carotid and vertebral arteries. VENTRICLES: There is mild age-related global parenchymal volume loss and proportionate enlargement of the ventricles and cortical sulci. CALVARIUM: There is no calvarial fracture or extracranial soft tissue swelling. PARANASAL SINUSES: There is redemonstration of high attenuation soft tissue in the right frontal sinus and osteoneogenesis of the right frontal sinus. The remaining included paranasal sinuses are clear. MASTOID AIR CELLS: Predominantly clear. OTHER FINDINGS: None. IMPRESSION: No acute intracranial abnormality. Moderate chronic microangiopathic changes and moderate age-related global parenchymal volume loss. High density soft tissue in the right frontal sinus with osteoneogenesis could represent chronic sinusitis with inspissated secretions however superimposed allergic fungal sinusitis is also a consideration. Clinical follow-up is advised.
[2018-05-23 14:20] LABS: VENOUS BLOOD GAS BASE EXCESS -8.3 mmol/L (0.0-2.0); VENOUS BLOOD GAS PCO2 41 mmHg (40-60); VENOUS BLOOD GAS PO2 24 mm/Hg (30-55); VENOUS BLOOD PH 7.26 (7.32-7.43)
[2018-05-23] MEDS ORDERED: (Novolin R) Insulin Human Regular 100 units/ml vial IVP ONE (14:21)
[2018-05-23] MEDS ORDERED: (Novolin R) Insulin Human Regular 100 units/ml vial ONE (14:52)
[2018-05-23] MEDS ORDERED: Potassium Chloride 20 mEq 100 ML ONE (14:53)
[2018-05-23] MEDS ORDERED: Lactated Ringer's 1,000 ML IV ONE ×2 (15:19→15:20)
[2018-05-23] MEDS ORDERED: Potassium Chloride 20 mEq/15 ml LIQ UD PO ONE (15:30)
--- NOTE | 2018-05-23 15:43 | RAD ---
Date of service: 05/23/2018 HISTORY: eval lung/heart COMPARISON: 03/19/2018. FINDINGS: LUNGS: The lungs are well inflated and clear. There is mild pulmonary venous congestion. There is linear atelectasis/scarring in the right mid lung. No focal consolidation. PLEURA: No pleural effusions or pneumothorax. CARDIOVASCULAR: The heart is normal in size. No aortic atherosclerotic calcification present. OSSEOUS STRUCTURES: Within normal limits for the patient's age. VISUALIZED UPPER ABDOMEN: Normal. OTHER FINDINGS: None. IMPRESSION: No active pulmonary disease.
[2018-05-23] MEDS ORDERED: Potassium Chloride 20 mEq/15 ml LIQ UD ONE ×2 (16:21→17:07)
[2018-05-23] MEDS ORDERED: Lactated Ringer's 1,000 ML ONE (17:09)
[2018-05-23] MEDS: Potassium Chloride 20 mEq/15 ml LIQ UD PO SCH ×2 (17:09→22:19)
[2018-05-23 18:05] LABS: BARBITURATES, UR NEGATIVE (NEGATIVE); BENZODIAZEPINES, UR NEGATIVE (NEGATIVE); OPIATES, UR POSITIVE (NEGATIVE); PHENCYCLIDINE, UR NEGATIVE (NEGATIVE)
--- NOTE | 2018-05-23 19:01 | PCM.PROC ---
Procedures Attestation:: I certify that I have explained the specified Operation(s) or Procedure(s), risks, benefits and reasonable alternatives to the Patient and/or other person responsible. The opportunity was given to ask questions and all questions answered - Central Line Placement Right Femoral Triple Lumen Catheter Aseptic technique was employed throughout the procedure: Full sterile barriers (mask, hair cover, sterile gown, sterile gloves), Chloraprep Antiseptic: 2 minute prep for Femoral CVP Time Out Performed: Yes Pt. Placed on Pulse Ox Monitor: Yes Central Line Prep: Chlorhexidine-Alcohol Combination Local Anesthesia Used: Lidocaine 1% Amount of Anesthesia Used (mls): 5 Ultrasound Used for Placement: No Central Line Lumen Inserted: triple Central Line Length: 20 cm Post Procedure: Sutured in Place, Good Blood Return, All Ports Aspirated, Flush ed, Capped, Sterile Dressing Applied Secured by: Securement device Post procedure dressing: Gauze, Clear vapor permeable, Chlorhexidine disc (Biopatch) Post Procedure X-Ray: No Patient Tolerated Procedure: Well Immediate Complications: None
--- NOTE | 2018-05-23 19:05 | CP.PCM.CON ---
History of Present Illness - History of Present Illness History of Present Illness: 72yo male with PMHx of uncontroleld DM with multiple episodes of DKA, h/o CKD, CAD, CHF, HTN, HLD, PUD admitted to [facility] with c/o headeaches and nausea. Patient denies any fevers, does not check his blood sugar and does not know his insulni regimen. PAtient was foung to be in DKA/HONK. ADmitted to ICU for DKA/HONK 12 point ROS as stated above PMHx:DKA, h/o CKD, CAD, CHF, HTN, HLD, PUD, HCV PSHx: left shoulder torn ligament, right hip replacement, TURP, B/L inguinal hernia repair 04/2014 FHx: denies colon cancer Social: prior [id number] years(quit 30 years), heavy alcohol abuse for 20 years, endorsed sobriety for 30 years, denies illicit drug use Endo: Colon 07/13 - poor prep EGD 04/11 - fundic ulcer, LA B esophagitis Review of Systems - Review of Systems All systems: reviewed and no additional remarkable complaints except - Constitutional Constitutional: As Per HPI Past Patient History - Infectious Disease Hx of Infectious Diseases: None - Tetanus Immunizations Tetanus Immunization: Unknown - Past Medical History & Family History Past Medical History?: Yes - Past Social History Smoking Status: Former Smoker - CARDIAC Hx Congestive Heart Failure: Yes Hx Hypercholesterolemia: Yes Hx Hypertension: Yes Hx Pacemaker: No Hx Peripheral Edema: Yes - PULMONARY Hx Pneumonia: Yes - NEUROLOGICAL Hx Dementia: Yes Hx Seizures: Yes (pt denies) - HEENT Hx HEENT Problems: Yes (LEFT EYE BLIND) Hx Cataracts: Yes (BILATERAL) Other/Comment: rt eye cataract sx - RENAL Hx Chronic Kidney Disease: Yes - ENDOCRINE/METABOLIC Hx Diabetes Mellitus Type 2: Yes - HEMATOLOGICAL/ONCOLOGICAL Hx Anemia: Yes - INTEGUMENTARY Hx Dermatological Problems: Yes Other/Comment: 03-03-18 HEALING SACRAL PRESSURE ULCER.SCARRED AREA MORE TO LEFT. - MUSCULOSKELETAL/RHEUMATOLOGICAL Hx Arthritis: Yes - GASTROINTESTINAL Hx Pancreatitis: Yes - GENITOURINARY/GYNECOLOGICAL Hx Genitourinary Disorders: Yes Hx Prostate Problems: Yes (R TURP for BPH) - PSYCHIATRIC Hx Substance Use: No - SURGICAL HISTORY Hx Surgeries: Yes Hx Cataract Extraction: Yes Hx Eye Surgery: Yes Hx Herniorrhaphy: Yes (Inguinal) Hx Vascular Access Device: Yes Other/Comment: hemorrhoidectomy - ANESTHESIA Hx Anesthesia: Yes Hx Anesthesia Reactions: No Hx Malignant Hyperthermia: No Meds Allergies/Adverse Reactions: Allergies Allergy/AdvReac Type Severity Reaction Status Date / Time No Known Allergies Allergy Verified 05/23/18 12:17 - Medications Medications: Current Medications Amlodipine Besylate (Norvasc) 10 mg PO DAILY [facility] Aspirin (Ecotrin) 81 mg PO DAILY [facility] Haloperidol (Haldol) 1 mg PO BID [facility] Insulin Glargine (Lantus) 10 unit SC HS [facility] Mirtazapine (Remeron) 15 mg PO HS [facility] Pantoprazole Sodium (Protonix Ec Tab) 40 mg PO DAILY [facility] Potassium Chloride (Potassium Chloride Oral Soln) 40 meq PO Q6H [facility]ELINA Stop: 05/24/18 10:01 Last Admin: 05/23/18 17:09 Dose: 40 meq Rosuvastatin Calcium (Crestor) 5 mg PO HS [facility] Tamsulosin HCl (Flomax) 0.4 mg PO DAILY [facility] Trazodone HCl (Desyrel) 50 mg PO HS [facility] Physical Exam - Head Exam Head Exam: ATRAUMATIC, NORMAL INSPECTION, NORMOCEPHALIC - Eye Exam Eye Exam: EOMI - ENT Exam ENT Exam: Mucous Membranes Dry - Respiratory Exam Respiratory Exam: Clear to Auscultation Bilateral, NORMAL BREATHING PATTERN - Cardiovascular Exam Cardiovascular Exam: REGULAR RHYTHM, +S1, +S2, Systolic Murmur - GI/Abdominal Exam GI & Abdominal Exam: Normal Bowel Sounds, Soft. absent: Guarding, Rigid - Extremities Exam Extremities exam: Positive for: normal inspection. Negative for: pedal edema - Neurological Exam Neurological exam: Alert, CN II-XII Intact, Oriented x3 - Psychiatric Exam Psychiatric exam: Normal Affect Results - Vital Signs Recent Vital Signs: Last Vital Signs Temp 98.6 F 05/23/18 12:15 Pulse 80 05/23/18 17:13 Resp 20 05/23/18 17:13 BP 130/76 05/23/18 17:13 Pulse Ox 99 05/23/18 17:13 - Labs Result Diagrams: 05/23/18 13:37 05/23/18 13:37 Labs: Laboratory Results - last 24 hr 05/23/18 05/23/18 05/23/18 12:39 13:37 13:37 WBC 9.6 D RBC 3.75 L Hgb 10.1 L D Hct 31.9 L MCV 85.2 MCH 26.9 L MCHC 31.6 L RDW 17.5 H Plt Count 371 D MPV 7.4 Neut % (Auto) 85.9 H Lymph % (Auto) 5.5 L Elk % (Auto) 6.3 Eos % (Auto) 1.7 Baso % (Auto) 0.6 Neut # (Auto) 8.2 H Lymph # (Auto) 0.5 L Elk # (Auto) 0.6 Eos # (Auto) 0.2 Baso # (Auto) 0.1 Neutrophils % (Manual) 79 H Band Neutrophils % 7 H Lymphocytes % (Manual) 5 L Monocytes % (Manual) 5 Eosinophils % (Manual) 4 Platelet Estimate Normal Polychromasia Slight Hypochromasia (manual) Slight Anisocytosis (manual) Slight pO2 VBG pH VBG pCO2 VBG HCO3 VBG Total CO2 VBG O2 Sat (Calc) VBG Base Excess VBG Potassium Glucose Lactate Crit Value Called To Crit Value Called By Crit Value Read Back Blood Gas Notified Time Sodium 128 L Potassium 3.0 L Chloride 99 Carbon Dioxide 19 L Anion Gap 13 BUN 19 Creatinine 1.3 Est GFR ( Amer) > 60 Est GFR (Non-Af Amer) 55 POC Glucose (mg/dL) > 500 H* Random Glucose 712 H* D Lactic Acid Calcium 8.3 L Phosphorus Magnesium Total Bilirubin 0.6 GGT AST 10 L D ALT 28 Alkaline Phosphatase 246 H D Ammonia Total Protein 6.2 L Albumin 2.9 L Globulin 3.3 Albumin/Globulin Ratio 0.9 L Alpha Fetoprotein Venous Blood Potassium Urine Opiates Screen Urine Methadone Screen Ur Barbiturates Screen Ur Phencyclidine Scrn Ur Amphetamines Screen U Benzodiazepines Scrn U Oth Cocaine Metabols U Cannabinoids Screen B-Hydroxybutyrate 05/23/18 05/23/18 05/23/18 14:15 14:17 15:44 WBC RBC Hgb Hct MCV MCH MCHC RDW Plt Count MPV Neut % (Auto) Lymph % (Auto) Elk % (Auto) Eos % (Auto) Baso % (Auto) Neut # (Auto) Lymph # (Auto) Elk # (Auto) Eos # (Auto) Baso # (Auto) Neutrophils % (Manual) Band Neutrophils % Lymphocytes % (Manual) Monocytes % (Manual) Eosinophils % (Manual) Platelet Estimate Polychromasia Hypochromasia (manual) Anisocytosis (manual) pO2 24 L VBG pH 7.26 L VBG pCO2 41 VBG HCO3 16.7 VBG Total CO2 19.7 L VBG O2 Sat (Calc) 47.3 VBG Base Excess -8.3 L VBG Potassium 2.2 L* Glucose 458 H* D Lactate 1.2 Crit Value Called To Shaun bone md Crit Value Called By Mono shanks Crit Value Read Back Y Blood Gas Notified Time 1420 Sodium 138.0 Potassium Chloride 107.0 Carbon Dioxide Anion Gap BUN Creatinine Est GFR ( Amer) Est GFR (Non-Af Amer) POC Glucose (mg/dL) Random Glucose Lactic Acid Calcium Phosphorus Magnesium Total Bilirubin GGT AST ALT Alkaline Phosphatase Ammonia Total Protein Albumin Globulin Albumin/Globulin Ratio Alpha Fetoprotein 2.9 Venous Blood Potassium 2.2 L* Urine Opiates Screen Urine Methadone Screen Ur Barbiturates Screen Ur Phencyclidine Scrn Ur Amphetamines Screen U Benzodiazepines Scrn U Oth Cocaine Metabols U Cannabinoids Screen B-Hydroxybutyrate 0.36 H 05/23/18 05/23/18 05/23/18 15:44 15:45 15:45 WBC RBC Hgb Hct MCV MCH MCHC RDW Plt Count MPV Neut % (Auto) Lymph % (Auto) Elk % (Auto) Eos % (Auto) Baso % (Auto) Neut # (Auto) Lymph # (Auto) Elk # (Auto) Eos # (Auto) Baso # (Auto) Neutrophils % (Manual) Band Neutrophils % Lymphocytes % (Manual) Monocytes % (Manual) Eosinophils % (Manual) Platelet Estimate Polychromasia Hypochromasia (manual) Anisocytosis (manual) pO2 VBG pH VBG pCO2 VBG HCO3 VBG Total CO2 VBG O2 Sat (Calc) VBG Base Excess VBG Potassium Glucose Lactate Crit Value Called To Crit Value Called By Crit Value Read Back Blood Gas Notified Time Sodium Potassium Chloride Carbon Dioxide Anion Gap BUN Creatinine Est GFR ( Amer) Est GFR (Non-Af Amer) POC Glucose (mg/dL) Random Glucose Lactic Acid 1.4 Calcium Phosphorus 2.7 Magnesium 1.9 Total Bilirubin GGT 91 H AST ALT Alkaline Phosphatase Ammonia < 9 L Total Protein Albumin Globulin Albumin/Globulin Ratio Alpha Fetoprotein Venous Blood Potassium Urine Opiates Screen Urine Methadone Screen Ur Barbiturates Screen Ur Phencyclidine Scrn Ur Amphetamines Screen U Benzodiazepines Scrn U Oth Cocaine Metabols U Cannabinoids Screen B-Hydroxybutyrate 05/23/18 05/23/18 05/23/18 16:58 17:00 17:44 WBC RBC Hgb Hct MCV MCH MCHC RDW Plt Count MPV Neut % (Auto) Lymph % (Auto) Elk % (Auto) Eos % (Auto) Baso % (Auto) Neut # (Auto) Lymph # (Auto) Elk # (Auto) Eos # (Auto) Baso # (Auto) Neutrophils % (Manual) Band Neutrophils % Lymphocytes % (Manual) Monocytes % (Manual) Eosinophils % (Manual) Platelet Estimate Polychromasia Hypochromasia (manual) Anisocytosis (manual) pO2 VBG pH VBG pCO2 VBG HCO3 VBG Total CO2 VBG O2 Sat (Calc) VBG Base Excess VBG Potassium Glucose Lactate Crit Value Called To Crit Value Called By Crit Value Read Back Blood Gas Notified Time Sodium Potassium Chloride Carbon Dioxide Anion Gap BUN Creatinine Est GFR ( Amer) Est GFR (Non-Af Amer) POC Glucose (mg/dL) > 500 H* > 500 H* Random Glucose Lactic Acid Calcium Phosphorus Magnesium Total Bilirubin GGT AST ALT Alkaline Phosphatase Ammonia Total Protein Albumin Globulin Albumin/Globulin Ratio Alpha Fetoprotein Venous Blood Potassium Urine Opiates Screen Positive H Urine Methadone Screen Negative Ur Barbiturates Screen Negative Ur Phencyclidine Scrn Negative Ur Amphetamines Screen Negative U Benzodiazepines Scrn Negative U Oth Cocaine Metabols Negative U Cannabinoids Screen Negative B-Hydroxybutyrate 05/23/18 18:20 WBC RBC Hgb Hct MCV MCH MCHC RDW Plt Count MPV Neut % (Auto) Lymph % (Auto) Elk % (Auto) Eos % (Auto) Baso % (Auto) Neut # (Auto) Lymph # (Auto) Elk # (Auto) Eos # (Auto) Baso # (Auto) Neutrophils % (Manual) Band Neutrophils % Lymphocytes % (Manual) Monocytes % (Manual) Eosinophils % (Manual) Platelet Estimate Polychromasia Hypochromasia (manual) Anisocytosis (manual) pO2 VBG pH VBG pCO2 VBG HCO3 VBG Total CO2 VBG O2 Sat (Calc) VBG Base Excess VBG Potassium Glucose Lactate Crit Value Called To Crit Value Called By Crit Value Read Back Blood Gas Notified Time Sodium Potassium Chloride Carbon Dioxide Anion Gap BUN Creatinine Est GFR ( Amer) Est GFR (Non-Af Amer) POC Glucose (mg/dL) 468 H* Random Glucose Lactic Acid Calcium Phosphorus Magnesium Total Bilirubin GGT AST ALT Alkaline Phosphatase Ammonia Total Protein Albumin Globulin Albumin/Globulin Ratio Alpha Fetoprotein Venous Blood Potassium Urine Opiates Screen Urine Methadone Screen Ur Barbiturates Screen Ur Phencyclidine Scrn Ur Amphetamines Screen U Benzodiazepines Scrn U Oth Cocaine Metabols U Cannabinoids Screen B-Hydroxybutyrate Assessment & Plan - Assessment and Plan (Free Text) Assessment: -HONK/DKA: unable to place peripheral line for hydration, multiple attempts, patient refused central line or Ej placement in neck, peripheral line in arms blew, Patient agreed to placement of femoral site, continue IVF and IV insulin BGm q1hrs -h/o HTN: monitor BP -lactic normal: no signs of sepsis, bai cultuer, utox pending -continue DVT/PUD ppx: heparin SQ/pepcid po. -lactic normal, bnp pending. Patient will benefit from ICU level care until BGM normalized and AG resolves - Date & Time Date: 05/23/18 Time: 19:09
[2018-05-23] MEDS ORDERED: Insulin Human Regular 100 UNIT in Sodium Chloride 0.9% 99 ML IV PRN (19:15)
[2018-05-23] MEDS ORDERED: Lactated Ringer's 1,000 ML IV SCH (20:15)
[2018-05-23 20:44] LABS: ALB/GLOB RATIO 0.9 (1.0-2.1); ALT/SGPT 33 U/L (21-72); AST/SGOT 9 U/L (17-59); BLOOD UREA NITROGEN 17 mg/dL (9-20); CALCIUM 8.6 mg/dl (8.6-10.4); GFR NON-AFRICAN AMERICAN 55
[2018-05-23] MEDS ORDERED: (Lantus) Insulin Glargine, Recombinant SC SCH (22:00)
[2018-05-23 23:00] LABS: URINE BACTERIA RARE (<OCC); URINE BILIRUBIN NEGATIVE (NEGATIVE); URINE BLOOD NEGATIVE (NEGATIVE); URINE CLARITY Clear (Clear); URINE COLOR Yellow (YELLOW); URINE GLUCOSE (UA) 3+ mg/dL (Normal); URINE LEUKOCYTE ESTERASE NEG Leu/uL (Negative); URINE PROTEIN 2+ mg/dL (NEGATIVE); URINE UROBILINOGEN NORMAL mg/dL (0.2-1.0)
[2018-05-23] MEDS ORDERED: Insulin Human Regular 100 UNIT in Sodium Chloride 0.9% 99 ML IV SCH (23:15)
[2018-05-23] MEDS: Lactated Ringer's 1,000 ML IV SCH (23:45)
[2018-05-24 02:15] LABS: ALB/GLOB RATIO 0.8 (1.0-2.1); ALBUMIN 2.6 g/dL (3.5-5.0); ALT/SGPT 23 U/L (21-72); AST/SGOT 8 U/L (17-59); BLOOD UREA NITROGEN 15 mg/dL (9-20); GFR NON-AFRICAN AMERICAN 60
[2018-05-24] MEDS: Lactated Ringer's 1,000 ML IV SCH ×5 (02:54→23:12)
--- NOTE | 2018-05-24 05:05 | HP ---
HISTORY OF PRESENT ILLNESS: I have known Ferny for many years. He has been in and out of subacute rehabs, in and out of nursing homes, and in and out of hospitals. He never seemed to stay, always AMA. He was just in a subacute rehab, doing quite well. He went out on past and refused to come back. He went home for two days. Now, he has 712 blood sugar. He is back to eating whatever he wants peanut butter carbs and chocolate, not taken his insulin. His has had no control over him. She tried to put him in a long term once but she could not do it. Now, he is back to [facility] Emergency Room, going to intensive care unit for DKA. He is a 72-year-old -[place] man who is noncompliant, has had C. difficile, multiple episodes of DKA, noncompliant. He is weak. He is having diarrhea from the C. difficile. He signs out of all the facilities he goes into. He has a headache. He did have sinusitis in the past. He has been treated on and off for that, but he never finishes the treatment. He had nausea and vomiting. He is very weak. He has anemia, arthritis, CHF, dementia, diabetes, gastrointestinal ulcers, C. difficile, hypertension, high cholesterol, pancreatitis, peripheral edema, pneumonia, chronic kidney disease, seizures. He has had an endoscopy. He has had pacemaker. He has had multiple excisions of the colon polyps. SOCIAL HISTORY: No smoking. He is an ex-drinker. No substance abuse. REVIEW OF SYSTEMS: He is resting in bed, a little bit confused from the high blood sugar, getting treated in the ER. He is going to go to the intensive care unit. He had diarrhea but he has had a history of C. difficile. He is very weak. No acute vision or hearing changes. No chest pain or palpitation. No shortness of breath or cough. He has had diarrhea but no abdominal pain. He is weak in the extremities. No skin issues but he does have a right leg with janine all along the side of it from the circulation procedure and needs to be taken out over the next week. PHYSICAL EXAMINATION: VITAL SIGNS: He has 98.6 temperature, 86 pulse, 18 respiratory rate, 131/81 blood pressure, 99% O2 saturation. HEENT: Head is atraumatic and normocephalic. He is looking at me, so he already understands who I am. Extraocular muscles are intact. Throat is moist. NECK: Supple. HEART: Regular rate. LUNGS: Decreased breath sounds, but clear. Poor inspiration. ABDOMEN: Soft, nontender. Positive bowel sounds at this time. No guarding. No rebound. No CVA tenderness. EXTREMITIES: No edema. He has got maybe 20 janine on his right leg alone of past surgical, over the past couple of weeks, incision. He is here in DKA. He is going to intensive care unit. He will be on multiple medications and IVs. He has consult with ENT for his possible sinus fungal infection, endocrinology. He has 0.36 beta hydroxybutyrate. He has 128 sodium, potassium 3 that we replaced the potassium, BUN 90, creatinine 1.3, GFR is greater than 60. Blood sugar is 712. Calcium is 8.3, magnesium is 1.9. Total bili is 0.6. GGT is 91, AST is 10, ALT is 20, alk phos 246, total protein 6.2. He has a pH of 7.26, acidotic. Has 9.6 white count, 10.1 hemoglobin, 31.9 hematocrit, 371 platelets. The chest x-ray was clear, but CAT scan showed a possible sinus fungal infection. He is going to the intensive care unit. We will check his labs tomorrow. Hopefully, he will improve. Hopefully, he will respond. Zohaib Morgan DO MTDD
--- NOTE | 2018-05-24 05:44 | CON ---
DATE: 05/23/2018 ENDOCRINOLOGY CONSULTATION LOCATION: ICU, room 5. HISTORY OF PRESENT ILLNESS: This is a 72-year-old male, very well known to me from multiple hospital consults and readmissions to both [facility] and [facility] for recurrent BKA and interspersed with symptomatic hypoglycemia and is now being referred for diabetic evaluation and management. PAST MEDICAL HISTORY: History of type 2 insulin-requiring diabetes, previously on the low-dose insulin regimen when discharge from this hospital on Levemir taking 6 units at bedtime and Humalog given as 3 units t.i.d. with meals. History of hypertension, dyslipidemia, history of coronary artery disease congestive heart failure, history of diabetic retinopathy, polyneuropathy and nephropathy with underlying chronic kidney disease, also history of peripheral arterial disease and vasculopathy. History of hepatitis C infection and also he has osteoarthritis with previous right hip replacement done. History of BPH with subsequent TURP procedure. FAMILY HISTORY: Positive for hypertension and heart disease. SOCIAL HISTORY: The patient has a supportive family. He is a former smoker. No known substance use. History of chronic alcoholism, but he quit alcohol seven years ago. REVIEW OF SYSTEMS: As mentioned above, admits to generalized body weakness with easy fatigability and suboptimal energy level. Also admits to recent bouts of dizziness and lightheadedness, worse on the day of admission. No chest pains, palpitations or PNDs. His oral intake has been variable with nausea, dyspepsia, marked polyuria, nocturia, and polydysplasia. PHYSICAL EXAMINATION VITAL SIGNS: Blood pressure 130/90, pulse 106 per minute and regular, temperature 98, respirations 20. Height is 5 feet. Weight is 100 pounds. HEENT: Head is normocephalic. Eyes anicteric with pink conjunctivae. Funduscopy is not possible at this time. Ears, nose, and throat otherwise normal. NECK: Supple. Thyroid gland is normal in size. No carotid bruits or cervical adenopathy. CARDIOPULMONARY: Adynamic precordium. S1 and S2 are rapid and regular. LUNGS: Show scattered rhonchi. ABDOMEN: Flat, soft with positive bowel sounds. EXTREMITIES: No peripheral edema. Pulses are +2 bilaterally. LABORATORY DATA: His chemistries on admission, BUN of 19, sodium 128, potassium 3, chloride 99, CO2 of 19, glucose 712, creatinine 1.3. His glucose levels have ranged from 398 to over 500 mg/dL. ASSESSMENT: This is a 72-year-old male with uncontrolled and decompensated type 2 insulin-requiring diabetes, presenting here with hyperosmolar hyperglycemic state and mild ketosis with dehydration and prerenal azotemia with spurious hyponatremia and hypokalemia. PLAN OF MANAGEMENT: As discussed with the nursing staff tonight, we will initiate vigorous IV hydration with higher doses of lactated Ringer's solution to be given higher dosing of 200 mL per hour as ordered. We will obtain serial chemistries and supplement accordingly as needed. We will also initiate intensive insulin therapy with an insulin drip infusion at least overnight to reduce glucose toxicity as expected thereof. By tomorrow morning, we can initiate the more physiologic basal and bolus insulin drug combination as indicated. We will obtain a hemoglobin A1c to confirm his prior glycemic control, and baseline thyroid function studies will be ordered. We will follow and advise accordingly. Myrna Sheffield MD
[2018-05-24] MEDS ORDERED: (Novolin R) Insulin Human Regular 100 units/ml vial SC SCH (06:00)
[2018-05-24 06:45] LABS: BASO % 0.4 % (0.0-2.0); EOS # 0.3 K/uL (0.0-0.7); EOS % 3.8 % (0.0-4.0); HEMOGLOBIN 9.3 g/dL (12.0-18.0); LYMPH # 0.5 K/uL (1.0-4.3); LYMPH % 7.1 % (20.0-40.0); MEAN CELL VOLUME 82.5 fL (80.0-94.0); MEAN CORPUSCULAR HEMOGLOBIN 26.7 pg (27.0-31.0); MEAN CORPUSCULAR HGB CONC 32.3 g/dL (33.0-37.0); MEAN PLATELET VOLUME 7.4 fL (7.2-11.7); MONO # 0.6 K/uL (0.0-0.8); MONO % 7.7 % (0.0-10.0); NEUT # 5.8 K/uL (1.8-7.0); PLATELET COUNT 381 K/uL (130-400); RBC 3.47 Mil/uL (4.40-5.90); RED CELL DISTRIBUTION WIDTH 17.7 % (11.5-14.5); WHITE BLOOD COUNT 7.2 K/uL (4.8-10.8)
[2018-05-24 06:55] LABS: ALB/GLOB RATIO 0.8 (1.0-2.1); ALBUMIN 2.6 g/dL (3.5-5.0); ALT/SGPT 22 U/L (21-72); AST/SGOT 8 U/L (17-59); BLOOD UREA NITROGEN 14 mg/dL (9-20); CALCIUM 8.7 mg/dl (8.6-10.4); GFR NON-AFRICAN AMERICAN 60
[2018-05-24 08:44] LABS: BANDS 9 % (0-2); EOSINOPHIL 3 % (0-4); LYMPHOCYTE 11 % (20-40); MONOCYTE 6 % (0-10); NEUTROPHIL 71 % (50-75); TOTAL CELLS COUNTED 100
[2018-05-24 08:45] LABS: PLATELET ESTIMATE NORMAL (NORMAL)
[2018-05-24 08:47] LABS: ANISOCYTOSIS SLIGHT; HYPOCHROMIC SLIGHT; LARGE PLATELETS PRESENT; POLYCHROMIC SLIGHT; TOXIC GRANULATION PRESENT
[2018-05-24 08:48] LABS: MICROCYTOSIS SLIGHT
[2018-05-24] MEDS ORDERED: Potassium Phosphate 15 MMOLE in Dextrose 5% In Water 250 ML IVPB ONE ×2 (09:19→09:20)
--- NOTE | 2018-05-24 09:51 | PN ---
DATE: 05/24/2018 SUBJECTIVE: I saw Ferny this morning in intensive care in bed 5. He is alert. He is little tired. There is a tray of food there for him. He states he is a little bit hungry. Hopefully, he will eat a little bit. He is on aspirin, Crestor, Desyrel, Ecotrin, Flomax, Haldol, heparin, lactated Ringers, Lantus, morphine for pain, ibuprofen, Norvasc, insulin coverage, Pepcid, Protonix, Remeron, and vancomycin oral for his C. diff. He also has a sinus issue, waiting for Ears, Nose, and Throat and Infectious Disease to help this and hoping Infectious Disease will help with his C. diff and sinus. It could be a fungal in the sinus area. PHYSICAL EXAMINATION: GENERAL: He is alert and tired. HEENT: Head: Atraumatic and normocephalic. Throat is dry. NECK: Supple. HEART: Regular rate. LUNGS: Decreased breath sounds. ABDOMEN: Soft. Positive bowel sounds. No guarding. EXTREMITIES: No edema. LABORATORY DATA: He has 7.2 white count, 9.3 hemoglobin, 28.7 hematocrit with 381 platelets. He has 136 sodium, potassium 3.8, BUN 14, creatinine 1.2, GFR is 60, sugar is 179, calcium 8.7, phosphorus 1.7, total bili is 0.4, and AST is 18, ALT 22, alk phos is 24, total protein is 6. He is positive for C. diff. Positive for opiates. His beta hydroxybutyrate count is normal at 0.4. Negative stool occult blood. He is in physical therapy, out of bed to chair. Continue with aggressive treatment in the intensive care unit, wait for ENT and Infectious Disease to see him. Thank you very much for asking me DKA, C. diff and possible fungal sinus infection. Zohaib Morgan DO [facility] HOSPITALGeoffrey
[2018-05-24] MEDS ORDERED: Pantoprazole 40 mg EC Tab PO SCH (10:00)
--- NOTE | 2018-05-24 10:17 | CP.PCM.PN ---
Subjective - Date & Time of Evaluation Date of Evaluation: 05/24/18 Time of Evaluation: 10:15 - Subjective Subjective: Patient admitted to ICU for DKA?HONK. off insulin ggt and toelrating SUB Q insulin Objective - Vital Signs/Intake and Output Vital Signs (last 24 hours): Temp Pulse Resp BP Pulse Ox 98 F 85 24 142/82 100 05/24/18 08:00 05/24/18 09:04 05/24/18 09:04 05/24/18 09:04 05/24/18 09:04 Intake and Output: 05/24/18 05/24/18 06:59 18:59 Intake Total 2120 600 Output Total 200 100 Balance 1920 500 - Medications Medications: Current Medications Amlodipine Besylate (Norvasc) 10 mg PO DAILY [facility] Aspirin (Aspirin Chewable) 81 mg PO DAILY [facility] Famotidine (Pepcid) 40 mg PO DAILY [facility] Haloperidol (Haldol) 1 mg PO BID [facility] Last Admin: 05/23/18 20:00 Dose: 1 mg Heparin Sodium (Porcine) (Heparin) 5,000 units SC Q12 [facility] Last Admin: 05/23/18 22:35 Dose: 5,000 units Lactated Ringer's (Lactated Ringer's) 1,000 mls @ 200 mls/hr IV .Q5H [facility] Last Admin: 05/24/18 04:08 Dose: Not Given Magnesium Sulfate/Dextrose (Magnesium Sulfate 1 Gm/100 Ml D5w) 1 gm in 100 mls @ 300 mls/hr IVPB Q30M [facility] Stop: 05/24/18 10:19 Potassium Phosphate 15 mmole/ (Dextrose) 255 mls @ 42.5 mls/hr IVPB ONCE ONE Stop: 05/24/18 15:19 Ibuprofen (Motrin Tab) 400 mg PO BID PRN PRN Reason: Pain, Mild (1-3) Last Admin: 05/23/18 22:36 Dose: 400 mg Insulin Aspart (Novolog) 3 unit SC AC [facility] Insulin Glargine (Lantus) 10 unit SC HS [facility] Last Admin: 05/23/18 22:36 Dose: 10 units Insulin Human Regular (Novolin R) 0 unit SC Q6 [facility]; Protocol Last Admin: 05/24/18 06:14 Dose: 2 units Mirtazapine (Remeron) 15 mg PO HS [facility] Last Admin: 05/23/18 22:37 Dose: 15 mg Rosuvastatin Calcium (Crestor) 5 mg PO HS [facility] Last Admin: 05/23/18 22:37 Dose: 5 mg Tamsulosin HCl (Flomax) 0.4 mg PO DAILY [facility] Trazodone HCl (Desyrel) 50 mg PO HS [facility] Last Admin: 05/23/18 22:37 Dose: 50 mg Vancomycin HCl (Vancocin (Oral Or Rectal Use)) 250 mg PO QID [facility]; Protocol - Labs Labs: 05/24/18 06:37 05/24/18 06:37 - Head Exam Head Exam: ATRAUMATIC, NORMAL INSPECTION, NORMOCEPHALIC - ENT Exam ENT Exam: Mucous Membranes Moist - Respiratory Exam Respiratory Exam: Clear to Ausculation Bilateral, NORMAL BREATHING PATTERN - Cardiovascular Exam Cardiovascular Exam: REGULAR RHYTHM, +S1, +S2, Murmur - GI/Abdominal Exam GI & Abdominal Exam: Normal Bowel Sounds - Extremities Exam Extremities Exam: Full ROM, Normal Inspection - Neurological Exam Neurological Exam: Alert, Awake, Oriented x3 - Skin Skin Exam: Normal Color, Warm Assessment and Plan - Assessment and Plan (Free Text) Assessment: DKA: resolved, 3 units premeals and 10 units long acting -check and replace all electrolytes -d/w central line -MID/PICC/perihperal line -continue all other treatment as per primary team Patient remains hemodynamically stable
[2018-05-24] MEDS: Vancomycin 125 MG/5 ML SOLN (ORAL/RECTAL) PO SCH ×4 (10:20→22:54)
[2018-05-24] MEDS: Magnesium Sulfate 1 gm in D5W 1 GM/100 ML BAG IVPB SCH ×2 (10:30→11:33)
[2018-05-24] MEDS: (Novolog) Insulin Aspart, Recombinant 100 u/ml 10 ml vial SC SCH ×5 (11:42→22:54)
--- NOTE | 2018-05-24 12:37 | US ---
Date of service: 05/23/2018 HISTORY: eval liver COMPARISON: None. TECHNIQUE: Grayscale imaging was performed. FINDINGS: LIVER: Measures 15.8 cm. There is mild diffuse increased echogenicity of the liver parenchyma. No mass. No intrahepatic bile duct dilatation. GALLBLADDER: There are no gallstones, wall thickening or pericholecystic fluid. The sonographic Zamorano's sign is negative. COMMON BILE DUCT: Measures 7.0 mm. No stones. Mild dilatation. PANCREAS: Unremarkable as visualized. No mass. No ductal dilatation. RIGHT KIDNEY: Measures 10.1cm. Diffuse increased cortical echogenicity. No calculus, mass, or hydronephrosis.There is a nonspecific 1 mm calcification in the right lower pole. LEFT KIDNEY: Measures 9.9cm. Diffuse increased cortical echogenicity. No calculus, mass, or hydronephrosis. SPLEEN: Normal in size and contour. No mass. AORTA: No aneurysmal dilatation. IVC: Unremarkable. OTHER FINDINGS: None. IMPRESSION: Diffuse increased echogenicity in the liver may reflect hepatic steatosis however parenchymal infectious/ inflammatory etiologies cannot be entirely excluded. Clinical and laboratory correlation is advised. No cholelithiasis. Mild diffuse dilatation of the common bile duct without sonographic evidence for choledocholithiasis. Mild diffuse a decreased echogenicity in both kidneys likely related to chronic medical renal disease.
--- NOTE | 2018-05-24 14:03 | CP.PCM.CON ---
History of Present Illness - History of Present Illness History of Present Illness: 72yo male with PMHx of uncontroleld DM with multiple episodes of DKA, was admitted to [facility] after [facility] AMA from [facility] with c/o headeaches and nausea. Patient found to be in DKA and admitted to ICU for this CT head revealed chronic sinusitis- r/o chronic fungal infection ID consulted for this 12 point ROS as stated above PMHx:DKA, h/o CKD, CAD, CHF, HTN, HLD, PUD, HCV PSHx: left shoulder torn ligament, right hip replacement, TURP, B/L inguinal hernia repair 04/2014 FHx: denies colon cancer Social: prior 3-4pmrd22 years(quit 30 years), heavy alcohol abuse for 20 years, endorsed sobriety for 30 years, denies illicit drug use Endo: Colon 07/13 - poor prep EGD 04/11 - fundic ulcer, LA B esophagitis - Medical History PMH: Anemia, Arthritis, CHF, Diabetes, Gastrointestinal Ulcer, HTN, Hypercholesterolemia, Pancreatitis, Peripheral Edema, Pneumonia, Chronic Kidney Disease Denies: Deep Vein Thrombosis Comment Only: Seizures (pt denies) Surgical History: Endoscopy Denies: Pacemaker - [facility] Procedures FLORESITA ING HRN REP-GRFT NOS (05/04/14) INSERTION OF INFUSION DEV INTO R FEMOR VEIN, PERC APPROACH (09/15/17) INSERTION OF INFUSION DEV INTO SUP VENA CAVA, PERC APPROACH (01/29/18) INSERTION OF INFUSION DEVICE INTO UPPER VEIN, PERC APPROACH (09/25/17) INTRODUCE OF OTH THERAP SUBST INTO RESP TRACT, VIA OPENING (08/22/17) ULTRASONOGRAPHY OF SUPERIOR VENA CAVA, GUIDANCE (12/16/17) Review of Systems - Constitutional Constitutional: Anorexia, Malaise. absent: Chills, Fever - EENT Eyes: absent: As Per HPI, Blind Spots, Blurred Vision, Change in Vision, Decreased Night Vision, Diplopia, Discharge, Dry Eye, Exophthalmos, Floaters, Irritation, Itchy Eyes, Loss of Peripheral Vision, Pain, Photophobia, Requires Corrective Lenses, Sees Flashes, Spots in Vision, Tunnel Vision, Other Visual Disturbances, Loss of Vision, Other Ears: absent: As Per HPI, Decreased Hearing, Ear Discharge, Ear Pain, Tinnitus, Abnormal Hearing, Disequilibrium, Dizziness, Other Nose/Mouth/Throat: absent: As Per HPI, Epistaxis, Nasal Congestion, Nasal Discharge, Nasal Obstruction, Nasal Trauma, Nose Pain, Post Nasal Drip, Sinus Pain, Sinus Pressure, Bleeding Gums, Change in Voice, Dental Pain, Dry Mouth, Dysphagia, Halitosis, Hoarsness, Lip Swelling, Mouth Lesions, Mouth Pain, Odynophagia, Sore Throat, Throat Swelling, Tongue Swelling, Facial Pain, Neck Pain, Neck Mass, Other - Cardiovascular Cardiovascular: absent: As Per HPI, Acrocyanosis, Chest Pain, Chest Pain at Rest, Chest Pain with Activity, Claudication, Diaphoresis, Dyspnea, Dyspnea on Exertion, Edema, Irregular Heart Rhythm, Pain Radiating to Arm/Neck/Jaw, Leg Edema, Leg Ulcers, Lightheadedness, Orthopnea, Palpitations, Paroxysmal Nocturnal Dyspnea, Pedal Edema, Radiating Pain, Rapid Heart Rate, Slow Heart Rate, Syncope, Other - Respiratory Respiratory: As Per HPI. absent: Hemoptysis - Gastrointestinal Gastrointestinal: As Per HPI - Genitourinary Genitourinary: absent: As Per HPI, Change in Urinary Stream, Difficulty Urinating, Dysuria, Flank Pain, Hematuria, Pyuria, Nocturia, Urinary Incontinence, Urinary Frequency, Urinary Hesitance, Urinary Urgency, Voiding Freq/Small Amts, Freq UTI, Hx Renal/Bladder Calculi, Hx /Renal Surgery, Bladder Distension, Other - Musculoskeletal Musculoskeletal: absent: As Per HPI, Abnormal Gait, Arthralgias, Atrophy, Back Pain, Deformity, Joint Swelling, Limited Range of Motion, Loss of Height, Muscle Cramps, Muscle Weakness, Myalgias, Neck Pain, Numbness, Radiating Pain into Limb, Stiffness, Tingling, Other - Integumentary Integumentary: absent: As Per HPI, Acne, Alopecia, Bleeding Lesions, Change in Hair, Change in Nails, Change in Pigmentation, Changing Lesions, Dry Skin, Erythema, Furuncle, Hirsutism, Lesions, New Lesions, Non-Healing Lesions, Photosensitivity, Pruritus, Rash, Skin Pain, Skin Ulcer, Sores, Striae, Swelling, Unusual Bruising, Wounds, Jaundice, Other - Neurological Neurological: absent: As Per HPI, Abnormal Gait, Abnormal Hearing, Abnormal Move ments, Abnormal Speech, Behavioral Changes, Burning Sensations, Confusion, Convulsions, Disequilibrium, Dizziness, Numbness, Focal Weakness, Frequent Falls, Headaches, Lack of Coordination, Loss of Vision, Memory Loss, Paresthesias, Radicular Pain, Restless Legs, Sensory Deficit, Syncope, Tingling, Tremor, Vertigo, Weakness, Other Visual Disturbances, Other - Psychiatric Psychiatric: absent: As Per HPI, Abnormal Sleep Pattern, Anhedonia, Anxiety, Auditory Hallucinations, Behavioral Changes, Change in Appetite, Change in Libido, Confusion, Depression, Difficulty Concentrating, Hallucinations, Homicidal Ideation, Hopelessness, Irritability, Memory Loss, Mood Swings, Panic Attacks, Paranoia, Suicidal Ideation, Visual Hallucinations, Tactile Hallucinations, Other - Endocrine Endocrine: absent: As Per HPI, Change in Body Appearance, Change in Libido, Cold Intolorance, Deepening of Voice, Excessive Sweating, Fatigue, Flushing, Heat Intolorance, Increase in Ring/Shoe/Hat Size, Palpitations, Polydipsia, Polyphagia, Polyuria, Other - Hematologic/Lymphatic Hematologic: absent: As Per HPI, Easy Bleeding, Easy Bruising, Lymphadenopathy, Other Past Patient History - Infectious Disease Hx of Infectious Diseases: None - Tetanus Immunizations Tetanus Immunization: Unknown - Past Medical History & Family History Past Medical History?: Yes - Past Social History Smoking Status: Former Smoker - CARDIAC Hx Congestive Heart Failure: Yes Hx Hypercholesterolemia: Yes Hx Hypertension: Yes Hx Pacemaker: No Hx Peripheral Edema: Yes - PULMONARY Hx Pneumonia: Yes - NEUROLOGICAL Hx Dementia: Yes Hx Seizures: Yes (pt denies) - HEENT Hx HEENT Problems: Yes (LEFT EYE BLIND) Hx Cataracts: Yes (BILATERAL) Other/Comment: rt eye cataract sx - RENAL Hx Chronic Kidney Disease: Yes - ENDOCRINE/METABOLIC Hx Diabetes Mellitus Type 2: Yes - HEMATOLOGICAL/ONCOLOGICAL Hx Anemia: Yes - INTEGUMENTARY Hx Dermatological Problems: Yes Other/Comment: 03-03-18 HEALING SACRAL PRESSURE ULCER.SCARRED AREA MORE TO LEFT. - MUSCULOSKELETAL/RHEUMATOLOGICAL Hx Arthritis: Yes - GASTROINTESTINAL Hx Pancreatitis: Yes - GENITOURINARY/GYNECOLOGICAL Hx Genitourinary Disorders: Yes Hx Prostate Problems: Yes (R TURP for BPH) - PSYCHIATRIC Hx Substance Use: No - SURGICAL HISTORY Hx Surgeries: Yes Hx Cataract Extraction: Yes Hx Eye Surgery: Yes Hx Herniorrhaphy: Yes (Inguinal) Hx Vascular Access Device: Yes Other/Comment: hemorrhoidectomy - ANESTHESIA Hx Anesthesia: Yes Hx Anesthesia Reactions: No Hx Malignant Hyperthermia: No Meds Allergies/Adverse Reactions: Allergies Allergy/AdvReac Type Severity Reaction Status Date / Time No Known Allergies Allergy Verified 05/23/18 12:17 - Medications Medications: Current Medications Amlodipine Besylate (Norvasc) 10 mg PO DAILY [facility] Last Admin: 05/24/18 11:30 Dose: 10 mg Aspirin (Aspirin Chewable) 81 mg PO DAILY [facility] Last Admin: 05/24/18 11:29 Dose: 81 mg Famotidine (Pepcid) 40 mg PO DAILY [facility] Last Admin: 05/24/18 11:35 Dose: 40 mg Haloperidol (Haldol) 1 mg PO BID [facility] Last Admin: 05/24/18 11:29 Dose: Not Given Heparin Sodium (Porcine) (Heparin) 5,000 units SC Q12 [facility] Last Admin: 05/24/18 10:05 Dose: 5,000 units Potassium Phosphate 15 mmole/ (Dextrose) 255 mls @ 42.5 mls/hr IVPB ONCE ONE Stop: 05/24/18 15:19 Last Admin: 05/24/18 09:40 Dose: 42.5 mls/hr Lactated Ringer's (Lactated Ringer's) 1,000 mls @ 125 mls/hr IV .Q8H [facility] Ibuprofen (Motrin Tab) 400 mg PO BID PRN PRN Reason: Pain, Mild (1-3) Last Admin: 05/23/18 22:36 Dose: 400 mg Insulin Aspart (Novolog) 3 unit SC AC [facility] Last Admin: 05/24/18 13:51 Dose: Not Given Insulin Aspart (Novolog) 0 unit SC ACHS [facility] Last Admin: 05/24/18 11:42 Dose: Not Given Insulin Glargine (Lantus) 10 unit SC HS [facility] Last Admin: 05/23/18 22:36 Dose: 10 units Mirtazapine (Remeron) 15 mg PO HS [facility] Last Admin: 05/23/18 22:37 Dose: 15 mg Rosuvastatin Calcium (Crestor) 5 mg PO HS [facility] Last Admin: 05/23/18 22:37 Dose: 5 mg Tamsulosin HCl (Flomax) 0.4 mg PO DAILY [facility] Last Admin: 05/24/18 11:37 Dose: 0.4 mg Trazodone HCl (Desyrel) 50 mg PO HS [facility] Last Admin: 05/23/18 22:37 Dose: 50 mg Vancomycin HCl (Vancocin (Oral Or Rectal Use)) 250 mg PO QID [facility]; Protocol Last Admin: 05/24/18 10:20 Dose: 250 mg Results - Vital Signs Recent Vital Signs: Last Vital Signs Temp 98.5 F 05/24/18 12:00 Pulse 67 05/24/18 13:04 Resp 19 05/24/18 13:04 BP 139/72 05/24/18 13:04 Pulse Ox 99 05/24/18 12:00 - Labs Result Diagrams: 05/24/18 06:37 05/24/18 06:37 Labs: Laboratory Results - last 24 hr 05/23/18 05/23/18 05/23/18 13:37 13:37 14:15 WBC RBC Hgb Hct MCV MCH MCHC RDW Plt Count MPV Neut % (Auto) Lymph % (Auto) [place] % (Auto) Eos % (Auto) Baso % (Auto) Neut # (Auto) Lymph # (Auto) [place] # (Auto) Eos # (Auto) Baso # (Auto) Neutrophils % (Manual) 79 H Band Neutrophils % 7 H Lymphocytes % (Manual) 5 L Monocytes % (Manual) 5 Eosinophils % (Manual) 4 Toxic Granulation Platelet Estimate Normal Large Platelets Polychromasia Slight Hypochromasia (manual) Slight Anisocytosis (manual) Slight Microcytosis (manual) pO2 24 L VBG pH 7.26 L VBG pCO2 41 VBG HCO3 16.7 VBG Total CO2 19.7 L VBG O2 Sat (Calc) 47.3 VBG Base Excess -8.3 L VBG Potassium 2.2 L* Sodium 138.0 Chloride 107.0 Glucose 458 H* D Lactate 1.2 Crit Value Called To Shaun bone md Crit Value Called By Mono rt Crit Value Read Back Y Blood Gas Notified Time 1420 Potassium Carbon Dioxide Anion Gap BUN Creatinine Est GFR ( Amer) Est GFR (Non-Af Amer) POC Glucose (mg/dL) Random Glucose 712 H* D Hemoglobin A1c Serum Osmolality Lactic Acid Calcium Phosphorus Magnesium Total Bilirubin GGT AST ALT Alkaline Phosphatase Ammonia Total Protein Albumin Globulin Albumin/Globulin Ratio Triglycerides Cholesterol LDL Cholesterol Direct HDL Cholesterol Alpha Fetoprotein TSH 3rd Generation Venous Blood Potassium 2.2 L* Urine Color Urine Clarity Urine pH Ur Specific [place] Urine Protein Urine Glucose (UA) Urine Ketones Urine Blood Urine Nitrate Urine Bilirubin Urine Urobilinogen Ur Leukocyte Esterase Urine WBC (Auto) Urine Bacteria Stool Occult Blood Urine Opiates Screen Urine Methadone Screen Ur Barbiturates Screen Ur Phencyclidine Scrn Ur Amphetamines Screen U Benzodiazepines Scrn U Oth Cocaine Metabols U Cannabinoids Screen B-Hydroxybutyrate C. difficile Ag & Toxin 05/23/18 05/23/18 05/23/18 14:17 15:44 15:44 WBC RBC Hgb Hct MCV MCH MCHC RDW Plt Count MPV Neut % (Auto) Lymph % (Auto) [place] % (Auto) Eos % (Auto) Baso % (Auto) Neut # (Auto) Lymph # (Auto) [place] # (Auto) Eos # (Auto) Baso # (Auto) Neutrophils % (Manual) Band Neutrophils % Lymphocytes % (Manual) Monocytes % (Manual) Eosinophils % (Manual) Toxic Granulation Platelet Estimate Large Platelets Polychromasia Hypochromasia (manual) Anisocytosis (manual) Microcytosis (manual) pO2 VBG pH VBG pCO2 VBG HCO3 VBG Total CO2 VBG O2 Sat (Calc) VBG Base Excess VBG Potassium Sodium Chloride Glucose Lactate Crit Value Called To Crit Value Called By Crit Value Read Back Blood Gas Notified Time Potassium Carbon Dioxide Anion Gap BUN Creatinine Est GFR ( Amer) Est GFR (Non-Af Amer) POC Glucose (mg/dL) Random Glucose Hemoglobin A1c Serum Osmolality Lactic Acid 1.4 Calcium Phosphorus Magnesium Total Bilirubin GGT AST ALT Alkaline Phosphatase Ammonia Total Protein Albumin Globulin Albumin/Globulin Ratio Triglycerides Cholesterol LDL Cholesterol Direct HDL Cholesterol Alpha Fetoprotein 2.9 TSH 3rd Generation Venous Blood Potassium Urine Color Urine Clarity Urine pH Ur Specific [place] Urine Protein Urine Glucose (UA) Urine Ketones Urine Blood Urine Nitrate Urine Bilirubin Urine Urobilinogen Ur Leukocyte Esterase Urine WBC (Auto) Urine Bacteria Stool Occult Blood Urine Opiates Screen Urine Methadone Screen Ur Barbiturates Screen Ur Phencyclidine Scrn Ur Amphetamines Screen U Benzodiazepines Scrn U Oth Cocaine Metabols U Cannabinoids Screen B-Hydroxybutyrate 0.36 H C. difficile Ag & Toxin 05/23/18 05/23/18 05/23/18 15:45 15:45 15:49 WBC RBC Hgb Hct MCV MCH MCHC RDW Plt Count MPV Neut % (Auto) Lymph % (Auto) [place] % (Auto) Eos % (Auto) Baso % (Auto) Neut # (Auto) Lymph # (Auto) [place] # (Auto) Eos # (Auto) Baso # (Auto) Neutrophils % (Manual) Band Neutrophils % Lymphocytes % (Manual) Monocytes % (Manual) Eosinophils % (Manual) Toxic Granulation Platelet Estimate Large Platelets Polychromasia Hypochromasia (manual) Anisocytosis (manual) Microcytosis (manual) pO2 VBG pH VBG pCO2 VBG HCO3 VBG Total CO2 VBG O2 Sat (Calc) VBG Base Excess VBG Potassium Sodium Chloride Glucose Lactate Crit Value Called To Crit Value Called By Crit Value Read Back Blood Gas Notified Time Potassium Carbon Dioxide Anion Gap BUN Creatinine Est GFR ( Amer) Est GFR (Non-Af Amer) POC Glucose (mg/dL) Random Glucose Hemoglobin A1c 9.2 H Serum Osmolality Lactic Acid Calcium Phosphorus 2.7 Magnesium 1.9 Total Bilirubin GGT 91 H AST ALT Alkaline Phosphatase Ammonia < 9 L Total Protein Albumin Globulin Albumin/Globulin Ratio Triglycerides Cholesterol LDL Cholesterol Direct HDL Cholesterol Alpha Fetoprotein TSH 3rd Generation Venous Blood Potassium Urine Color Urine Clarity Urine pH Ur Specific [place] Urine Protein Urine Glucose (UA) Urine Ketones Urine Blood Urine Nitrate Urine Bilirubin Urine Urobilinogen Ur Leukocyte Esterase Urine WBC (Auto) Urine Bacteria Stool Occult Blood Urine Opiates Screen Urine Methadone Screen Ur Barbiturates Screen Ur Phencyclidine Scrn Ur Amphetamines Screen U Benzodiazepines Scrn U Oth Cocaine Metabols U Cannabinoids Screen B-Hydroxybutyrate C. difficile Ag & Toxin 05/23/18 05/23/18 05/23/18 16:58 17:00 17:44 WBC RBC Hgb Hct MCV MCH MCHC RDW Plt Count MPV Neut % (Auto) Lymph % (Auto) [place] % (Auto) Eos % (Auto) Baso % (Auto) Neut # (Auto) Lymph # (Auto) [place] # (Auto) Eos # (Auto) Baso # (Auto) Neutrophils % (Manual) Band Neutrophils % Lymphocytes % (Manual) Monocytes % (Manual) Eosinophils % (Manual) Toxic Granulation Platelet Estimate Large Platelets Polychromasia Hypochromasia (manual) Anisocytosis (manual) Microcytosis (manual) pO2 VBG pH VBG pCO2 VBG HCO3 VBG Total CO2 VBG O2 Sat (Calc) VBG Base Excess VBG Potassium Sodium Chloride Glucose Lactate Crit Value Called To Crit Value Called By Crit Value Read Back Blood Gas Notified Time Potassium Carbon Dioxide Anion Gap BUN Creatinine Est GFR ( Amer) Est GFR (Non-Af Amer) POC Glucose (mg/dL) > 500 H* > 500 H* Random Glucose Hemoglobin A1c Serum Osmolality Lactic Acid Calcium Phosphorus Magnesium Total Bilirubin GGT AST ALT Alkaline Phosphatase Ammonia Total Protein Albumin Globulin Albumin/Globulin Ratio Triglycerides Cholesterol LDL Cholesterol Direct HDL Cholesterol Alpha Fetoprotein TSH 3rd Generation Venous Blood Potassium Urine Color Urine Clarity Urine pH Ur Specific [place] Urine Protein Urine Glucose (UA) Urine Ketones Urine Blood Urine Nitrate Urine Bilirubin Urine Urobilinogen Ur Leukocyte Esterase Urine WBC (Auto) Urine Bacteria Stool Occult Blood Urine Opiates Screen Positive H Urine Methadone Screen Negative Ur Barbiturates Screen Negative Ur Phencyclidine Scrn Negative Ur Amphetamines Screen Negative U Benzodiazepines Scrn Negative U Oth Cocaine Metabols Negative U Cannabinoids Screen Negative B-Hydroxybutyrate C. difficile Ag & Toxin 05/23/18 05/23/18 05/23/18 18:20 19:45 20:19 WBC RBC Hgb Hct MCV MCH MCHC RDW Plt Count MPV Neut % (Auto) Lymph % (Auto) [place] % (Auto) Eos % (Auto) Baso % (Auto) Neut # (Auto) Lymph # (Auto) [place] # (Auto) Eos # (Auto) Baso # (Auto) Neutrophils % (Manual) Band Neutrophils % Lymphocytes % (Manual) Monocytes % (Manual) Eosinophils % (Manual) Toxic Granulation Platelet Estimate Large Platelets Polychromasia Hypochromasia (manual) Anisocytosis (manual) Microcytosis (manual) pO2 VBG pH VBG pCO2 VBG HCO3 VBG Total CO2 VBG O2 Sat (Calc) VBG Base Excess VBG Potassium Sodium Chloride Glucose Lactate Crit Value Called To Crit Value Called By Crit Value Read Back Blood Gas Notified Time Potassium Carbon Dioxide Anion Gap BUN Creatinine Est GFR ( Amer) Est GFR (Non-Af Amer) POC Glucose (mg/dL) 468 H* > 500 H* Random Glucose Hemoglobin A1c Serum Osmolality 308 H Lactic Acid Calcium Phosphorus Magnesium Total Bilirubin GGT AST ALT Alkaline Phosphatase Ammonia Total Protein Albumin Globulin Albumin/Globulin Ratio Triglycerides Cholesterol LDL Cholesterol Direct HDL Cholesterol Alpha Fetoprotein TSH 3rd Generation Venous Blood Potassium Urine Color Urine Clarity Urine pH Ur Specific [place] Urine Protein Urine Glucose (UA) Urine Ketones Urine Blood Urine Nitrate Urine Bilirubin Urine Urobilinogen Ur Leukocyte Esterase Urine WBC (Auto) Urine Bacteria Stool Occult Blood Urine Opiates Screen Urine Methadone Screen Ur Barbiturates Screen Ur Phencyclidine Scrn Ur Amphetamines Screen U Benzodiazepines Scrn U Oth Cocaine Metabols U Cannabinoids Screen B-Hydroxybutyrate C. difficile Ag & Toxin 05/23/18 05/23/18 05/23/18 20:19 20:50 22:11 WBC RBC Hgb Hct MCV MCH MCHC RDW Plt Count MPV Neut % (Auto) Lymph % (Auto) [place] % (Auto) Eos % (Auto) Baso % (Auto) Neut # (Auto) Lymph # (Auto) [place] # (Auto) Eos # (Auto) Baso # (Auto) Neutrophils % (Manual) Band Neutrophils % Lymphocytes % (Manual) Monocytes % (Manual) Eosinophils % (Manual) Toxic Granulation Platelet Estimate Large Platelets Polychromasia Hypochromasia (manual) Anisocytosis (manual) Microcytosis (manual) pO2 VBG pH VBG pCO2 VBG HCO3 VBG Total CO2 VBG O2 Sat (Calc) VBG Base Excess VBG Potassium Sodium 133 Chloride 104 Glucose Lactate Crit Value Called To Crit Value Called By Crit Value Read Back Blood Gas Notified Time Potassium 4.1 Carbon Dioxide 21 L Anion Gap 13 BUN 17 Creatinine 1.3 Est GFR ( Amer) > 60 Est GFR (Non-Af Amer) 55 POC Glucose (mg/dL) 443 H* 398 H Random Glucose 460 H* D Hemoglobin A1c Serum Osmolality Lactic Acid Calcium 8.6 Phosphorus 1.8 L Magnesium 1.8 Total Bilirubin 0.4 GGT AST 9 L ALT 33 Alkaline Phosphatase 262 H Ammonia Total Protein 6.5 Albumin 3.0 L Globulin 3.5 Albumin/Globulin Ratio 0.9 L Triglycerides Cholesterol LDL Cholesterol Direct HDL Cholesterol Alpha Fetoprotein TSH 3rd Generation Venous Blood Potassium Urine Color Urine Clarity Urine pH Ur Specific [place] Urine Protein Urine Glucose (UA) Urine Ketones Urine Blood Urine Nitrate Urine Bilirubin Urine Urobilinogen Ur Leukocyte Esterase Urine WBC (Auto) Urine Bacteria Stool Occult Blood Urine Opiates Screen Urine Methadone Screen Ur Barbiturates Screen Ur Phencyclidine Scrn Ur Amphetamines Screen U Benzodiazepines Scrn U Oth Cocaine Metabols U Cannabinoids Screen B-Hydroxybutyrate 0.28 H C. difficile Ag & Toxin 05/23/18 05/23/18 05/24/18 22:52 23:16 00:00 WBC RBC Hgb Hct MCV MCH MCHC RDW Plt Count MPV Neut % (Auto) Lymph % (Auto) [place] % (Auto) Eos % (Auto) Baso % (Auto) Neut # (Auto) Lymph # (Auto) [place] # (Auto) Eos # (Auto) Baso # (Auto) Neutrophils % (Manual) Band Neutrophils % Lymphocytes % (Manual) Monocytes % (Manual) Eosinophils % (Manual) Toxic Granulation Platelet Estimate Large Platelets Polychromasia Hypochromasia (manual) Anisocytosis (manual) Microcytosis (manual) pO2 VBG pH VBG pCO2 VBG HCO3 VBG Total CO2 VBG O2 Sat (Calc) VBG Base Excess VBG Potassium Sodium Chloride Glucose Lactate Crit Value Called To Crit Value Called By Crit Value Read Back Blood Gas Notified Time Potassium Carbon Dioxide Anion Gap BUN Creatinine Est GFR ( Amer) Est GFR (Non-Af Amer) POC Glucose (mg/dL) 360 H Random Glucose Hemoglobin A1c Serum Osmolality Lactic Acid Calcium Phosphorus Magnesium Total Bilirubin GGT AST ALT Alkaline Phosphatase Ammonia Total Protein Albumin Globulin Albumin/Globulin Ratio Triglycerides Cholesterol LDL Cholesterol Direct HDL Cholesterol Alpha Fetoprotein TSH 3rd Generation Venous Blood Potassium Urine Color Yellow Urine Clarity Clear Urine pH 6.0 Ur Specific [place] 1.025 Urine Protein 2+ H Urine Glucose (UA) 3+ H Urine Ketones Negative Urine Blood Negative Urine Nitrate Negative Urine Bilirubin Negative Urine Urobilinogen Normal Ur Leukocyte Esterase Neg Urine WBC (Auto) < 1 Urine Bacteria Rare Stool Occult Blood Urine Opiates Screen Urine Methadone Screen Ur Barbiturates Screen Ur Phencyclidine Scrn Ur Amphetamines Screen U Benzodiazepines Scrn U Oth Cocaine Metabols U Cannabinoids Screen B-Hydroxybutyrate C. difficile Ag & Toxin Positive H 05/24/18 05/24/18 05/24/18 00:12 00:56 01:54 WBC RBC Hgb Hct MCV MCH MCHC RDW Plt Count MPV Neut % (Auto) Lymph % (Auto) [place] % (Auto) Eos % (Auto) Baso % (Auto) Neut # (Auto) Lymph # (Auto) [place] # (Auto) Eos # (Auto) Baso # (Auto) Neutrophils % (Manual) Band Neutrophils % Lymphocytes % (Manual) Monocytes % (Manual) Eosinophils % (Manual) Toxic Granulation Platelet Estimate Large Platelets Polychromasia Hypochromasia (manual) Anisocytosis (manual) Microcytosis (manual) pO2 VBG pH VBG pCO2 VBG HCO3 VBG Total CO2 VBG O2 Sat (Calc) VBG Base Excess VBG Potassium Sodium 136 Chloride 108 H Glucose Lactate Crit Value Called To Crit Value Called By Crit Value Read Back Blood Gas Notified Time Potassium 3.1 L Carbon Dioxide 21 L Anion Gap 10 BUN 15 Creatinine 1.2 Est GFR ( Amer) > 60 Est GFR (Non-Af Amer) 60 POC Glucose (mg/dL) 283 H 200 H Random Glucose 162 H D Hemoglobin A1c Serum Osmolality Lactic Acid Calcium 9.0 Phosphorus 1.1 L Magnesium 1.8 Total Bilirubin 0.3 GGT AST 8 L ALT 23 Alkaline Phosphatase 213 H Ammonia Total Protein 6.1 L Albumin 2.6 L Globulin 3.4 Albumin/Globulin Ratio 0.8 L Triglycerides Cholesterol LDL Cholesterol Direct HDL Cholesterol Alpha Fetoprotein TSH 3rd Generation Venous Blood Potassium Urine Color Urine Clarity Urine pH Ur Specific [place] Urine Protein Urine Glucose (UA) Urine Ketones Urine Blood Urine Nitrate Urine Bilirubin Urine Urobilinogen Ur Leukocyte Esterase Urine WBC (Auto) Urine Bacteria Stool Occult Blood Urine Opiates Screen Urine Methadone Screen Ur Barbiturates Screen Ur Phencyclidine Scrn Ur Amphetamines Screen U Benzodiazepines Scrn U Oth Cocaine Metabols U Cannabinoids Screen B-Hydroxybutyrate 0.03 C. difficile Ag & Toxin 05/24/18 05/24/18 05/24/18 02:02 02:50 02:54 WBC RBC Hgb Hct MCV MCH MCHC RDW Plt Count MPV Neut % (Auto) Lymph % (Auto) [place] % (Auto) Eos % (Auto) Baso % (Auto) Neut # (Auto) Lymph # (Auto) [place] # (Auto) Eos # (Auto) Baso # (Auto) Neutrophils % (Manual) Band Neutrophils % Lymphocytes % (Manual) Monocytes % (Manual) Eosinophils % (Manual) Toxic Granulation Platelet Estimate Large Platelets Polychromasia Hypochromasia (manual) Anisocytosis (manual) Microcytosis (manual) pO2 VBG pH VBG pCO2 VBG HCO3 VBG Total CO2 VBG O2 Sat (Calc) VBG Base Excess VBG Potassium Sodium Chloride Glucose Lactate Crit Value Called To Crit Value Called By Crit Value Read Back Blood Gas Notified Time Potassium Carbon Dioxide Anion Gap BUN Creatinine Est GFR ( Amer) Est GFR (Non-Af Amer) POC Glucose (mg/dL) 134 H 98 Random Glucose Hemoglobin A1c Serum Osmolality Lactic Acid Calcium Phosphorus Magnesium Total Bilirubin GGT AST ALT Alkaline Phosphatase Ammonia Total Protein Albumin Globulin Albumin/Globulin Ratio Triglycerides Cholesterol LDL Cholesterol Direct HDL Cholesterol Alpha Fetoprotein TSH 3rd Generation Venous Blood Potassium Urine Color Urine Clarity Urine pH Ur Specific [place] Urine Protein Urine Glucose (UA) Urine Ketones Urine Blood Urine Nitrate Urine Bilirubin Urine Urobilinogen Ur Leukocyte Esterase Urine WBC (Auto) Urine Bacteria Stool Occult Blood Negative Urine Opiates Screen Urine Methadone Screen Ur Barbiturates Screen Ur Phencyclidine Scrn Ur Amphetamines Screen U Benzodiazepines Scrn U Oth Cocaine Metabols U Cannabinoids Screen B-Hydroxybutyrate C. difficile Ag & Toxin 05/24/18 05/24/18 05/24/18 05:48 06:37 06:37 WBC RBC Hgb Hct MCV MCH MCHC RDW Plt Count MPV Neut % (Auto) Lymph % (Auto) [place] % (Auto) Eos % (Auto) Baso % (Auto) Neut # (Auto) Lymph # (Auto) [place] # (Auto) Eos # (Auto) Baso # (Auto) Neutrophils % (Manual) Band Neutrophils % Lymphocytes % (Manual) Monocytes % (Manual) Eosinophils % (Manual) Toxic Granulation Platelet Estimate Large Platelets Polychromasia Hypochromasia (manual) Anisocytosis (manual) Microcytosis (manual) pO2 VBG pH VBG pCO2 VBG HCO3 VBG Total CO2 VBG O2 Sat (Calc) VBG Base Excess VBG Potassium Sodium 136 Chloride 108 H Glucose Lactate Crit Value Called To Crit Value Called By Crit Value Read Back Blood Gas Notified Time Potassium 3.8 Carbon Dioxide 23 Anion Gap 8 L BUN 14 Creatinine 1.2 Est GFR ( Amer) > 60 Est GFR (Non-Af Amer) 60 POC Glucose (mg/dL) 185 H Random Glucose 179 H Hemoglobin A1c Serum Osmolality Lactic Acid Calcium 8.7 Phosphorus 1.6 L 1.7 L Magnesium 1.7 1.7 Total Bilirubin 0.4 GGT AST 8 L ALT 22 Alkaline Phosphatase 224 H Ammonia Total Protein 6.0 L Albumin 2.6 L Globulin 3.4 Albumin/Globulin Ratio 0.8 L Triglycerides 101 D Cholesterol 100 LDL Cholesterol Direct 45 HDL Cholesterol 42 Alpha Fetoprotein TSH 3rd Generation 1.78 Venous Blood Potassium Urine Color Urine Clarity Urine pH Ur Specific [place] Urine Protein Urine Glucose (UA) Urine Ketones Urine Blood Urine Nitrate Urine Bilirubin Urine Urobilinogen Ur Leukocyte Esterase Urine WBC (Auto) Urine Bacteria Stool Occult Blood Urine Opiates Screen Urine Methadone Screen Ur Barbiturates Screen Ur Phencyclidine Scrn Ur Amphetamines Screen U Benzodiazepines Scrn U Oth Cocaine Metabols U Cannabinoids Screen B-Hydroxybutyrate 0.14 C. difficile Ag & Toxin 05/24/18 05/24/18 06:37 11:41 WBC 7.2 RBC 3.47 L Hgb 9.3 L Hct 28.7 L MCV 82.5 D MCH 26.7 L MCHC 32.3 L RDW 17.7 H Plt Count 381 MPV 7.4 Neut % (Auto) 81.0 H Lymph % (Auto) 7.1 L [place] % (Auto) 7.7 Eos % (Auto) 3.8 Baso % (Auto) 0.4 Neut # (Auto) 5.8 Lymph # (Auto) 0.5 L [place] # (Auto) 0.6 Eos # (Auto) 0.3 Baso # (Auto) 0.0 Neutrophils % (Manual) 71 Band Neutrophils % 9 H Lymphocytes % (Manual) 11 L Monocytes % (Manual) 6 Eosinophils % (Manual) 3 Toxic Granulation Present Platelet Estimate Normal Large Platelets Present Polychromasia Slight Hypochromasia (manual) Slight Anisocytosis (manual) Slight Microcytosis (manual) Slight pO2 VBG pH VBG pCO2 VBG HCO3 VBG Total CO2 VBG O2 Sat (Calc) VBG Base Excess VBG Potassium Sodium Chloride Glucose Lactate Crit Value Called To Crit Value Called By Crit Value Read Back Blood Gas Notified Time Potassium Carbon Dioxide Anion Gap BUN Creatinine Est GFR ( Amer) Est GFR (Non-Af Amer) POC Glucose (mg/dL) 111 H Random Glucose Hemoglobin A1c Serum Osmolality Lactic Acid Calcium Phosphorus Magnesium Total Bilirubin GGT AST ALT Alkaline Phosphatase Ammonia Total Protein Albumin Globulin Albumin/Globulin Ratio Triglycerides Cholesterol LDL Cholesterol Direct HDL Cholesterol Alpha Fetoprotein TSH 3rd Generation Venous Blood Potassium Urine Color Urine Clarity Urine pH Ur Specific [place] Urine Protein Urine Glucose (UA) Urine Ketones Urine Blood Urine Nitrate Urine Bilirubin Urine Urobilinogen Ur Leukocyte Esterase Urine WBC (Auto) Urine Bacteria Stool Occult Blood Urine Opiates Screen Urine Methadone Screen Ur Barbiturates Screen Ur Phencyclidine Scrn Ur Amphetamines Screen U Benzodiazepines Scrn U Oth Cocaine Metabols U Cannabinoids Screen B-Hydroxybutyrate C. difficile Ag & Toxin
[2018-05-24] MEDS: Micafungin 100 MG in Sodium Chloride 0.9% 100 ML IV SCH (16:00)
--- NOTE | 2018-05-24 16:56 | PN ---
DATE: 05/24/2018 ENDOCRINOLOGY FOLLOWUP NOTE LOCATION: ICU, room 5. SUBJECTIVE: This is a 72-year-old male with recent uncontrolled type 2 insulin requiring diabetes, presenting here with marked hyperglycemic accelerations related to drug omission and very erratic usage of his insulin medications, and is now being followed closely for metabolic management. LABORATORY DATA: His glycemic levels overnight have improved and have ranged from 11 to 185 mg/dL, it was 134 early this morning at 2 a.m. as noted. His chemistry showed a BUN of 14, sodium 136, potassium 3.8, chloride 108, CO2 of 23, glucose 179, and creatinine 1.2. ASSESSMENT: This is a 72-year-old male with uncontrolled and decompensated type 2 insulin requiring diabetes, presenting here with hyperosmolar hyperglycemic state, mild ketosis and . PLAN OF MANAGEMENT: We will continue the modified basal and bolus insulin regimen already started by the medical staff with Humalog given as 3 units t.i.d before meals as ordered. Will continue the Levemir given as 10 units subcutaneous at bedtime daily as given. We will modify his coverage scale also using Humalog to avoid confusion with the nursing staff and also to prevent further bouts of hypoglycemia as the patient is extremely metabolically labile as seen from his previous admissions with extremes of glycemic fluctuations thereof. We will lower the IV hydration with lactated Ringer's running up to 125 mL/hour as ordered starting this morning. We will obtain serial chemistries and supplement accordingly as needed. We will follow. Myrna Sheffield MD
[2018-05-24] MEDS: (Lantus) Insulin Glargine, Recombinant SC SCH (22:50)
[2018-05-25 06:23] LABS: HEMOGLOBIN 9.6 g/dL (12.0-18.0); MEAN CELL VOLUME 83.4 fL (80.0-94.0); MEAN CORPUSCULAR HEMOGLOBIN 26.9 pg (27.0-31.0); MEAN CORPUSCULAR HGB CONC 32.3 g/dL (33.0-37.0); MEAN PLATELET VOLUME 7.8 fL (7.2-11.7); RBC 3.57 Mil/uL (4.40-5.90); RED CELL DISTRIBUTION WIDTH 17.9 % (11.5-14.5); WHITE BLOOD COUNT 8.1 K/uL (4.8-10.8)
[2018-05-25 06:31] LABS: ALB/GLOB RATIO 0.7 (1.0-2.1); ALBUMIN 2.5 g/dL (3.5-5.0); ALT/SGPT 28 U/L (21-72); AST/SGOT 17 U/L (17-59); BLOOD UREA NITROGEN 8 mg/dL (9-20); CALCIUM 8.4 mg/dl (8.6-10.4); GFR NON-AFRICAN AMERICAN > 60
[2018-05-25] MEDS: Lactated Ringer's 1,000 ML IV SCH (06:49)
[2018-05-25] MEDS: Potassium Chloride 20 mEq/15 ml LIQ UD PO SCH ×3 (07:26→22:18)
[2018-05-25] MEDS: (Novolog) Insulin Aspart, Recombinant 100 u/ml 10 ml vial SC SCH ×6 (08:03→22:18)
[2018-05-25] MEDS ORDERED: Dextrose 5%/0.45% NS 1,000 ML IV SCH (08:45)
[2018-05-25] MEDS: Vancomycin 125 MG/5 ML SOLN (ORAL/RECTAL) PO SCH ×4 (10:24→22:19)
--- NOTE | 2018-05-25 11:07 | PN ---
DATE: 05/25/2018 SUBJECTIVE: He is in the intensive care unit, bed 5. I believe he was downgraded yesterday. He is alert, talking. He is eating better. PHYSICAL EXAMINATION: VITAL SIGNS: 98.7 temperature, 74 pulse, 131/71 blood pressure, 19 respiratory rate, 100% O2 sat on room air. HEAD: Atraumatic, normocephalic. HEART: Regular rate. LUNGS: Decreased breath sounds, but clear. ABDOMEN: Soft. EXTREMITIES: No edema. He is still having C. difficile diarrhea. MEDICATIONS: He is on aspirin, Crestor, Desyrel, Flomax, Haldol, heparin, lactated Ringer's, Lantus, micafungin IV for his fungal sinus infection, Motrin, Norvasc, Novolin, NovoLog, Pepcid, Remeron, vancomycin oral for C. difficile. LABORATORY DATA: 87.2 white count, 9.3 hemoglobin, 28.7 hematocrit with 381 platelets. He has 136 sodium, potassium 3.8, BUN is 14, creatinine 1.2, GFR is greater than 60, sugar is 111, calcium is 8.7, phosphorus is 1.7, magnesium 1.7, total bili is 0.4. AST is 8, ALT is 22, alk phos 224. triglycerides are 101. TSH is 1.78. Urine was okay. Stool is negative. ASSESSMENT AND PLAN: He is being seen by Infectious Disease and Endocrinology and the warehouse director. He is very noncompliant. It is very difficult for him to follow directions at home. He will continue to go to treatment and care, get Physical Therapy to see him, out of bed to chair as per Infectious Disease and Endocrinology. He is on micafungin, insulin, intravenous fluids. He will need physical therapy. Zohaib Morgan DO
[2018-05-25] MEDS ORDERED: (Novolog) Insulin Aspart, Recombinant 100 u/ml 10 ml vial SC SCH (12:07)
[2018-05-25] MEDS: Sodium Chloride 0.9% 1,000 ML IV SCH (12:20)
--- NOTE | 2018-05-25 13:28 | CARD ---
APPROVED REPORT Date of service: 05/23/2018 EKG Measurement Heart [id number] <Conclusion> Normal sinus rhythm Septal infarct, age undetermined Prolonged QT Abnormal ECG
--- NOTE | 2018-05-25 15:25 | CP.PCM.PN ---
Subjective - Date & Time of Evaluation Date of Evaluation: 05/25/18 Time of Evaluation: 08:00 - Subjective Subjective: afeb c/o headache in nad await ENT eval metabolically improved no new cultures on antifungal rx Objective - Vital Signs/Intake and Output Vital Signs (last 24 hours): Temp Pulse Resp BP Pulse Ox 98.0 F 87 20 148/77 98 05/25/18 04:00 05/25/18 06:00 05/25/18 06:00 05/25/18 05:04 05/25/18 04:05 Intake and Output: 05/25/18 05/25/18 06:59 18:59 Intake Total 1500 Output Total 1100 Balance 400 - Medications Medications: Current Medications Amlodipine Besylate (Norvasc) 10 mg PO DAILY [facility] Last Admin: 05/25/18 10:24 Dose: 10 mg Aspirin (Aspirin Chewable) 81 mg PO DAILY [facility] Last Admin: 05/25/18 10:24 Dose: 81 mg Famotidine (Pepcid) 40 mg PO DAILY [facility] Last Admin: 05/25/18 10:23 Dose: 40 mg Haloperidol (Haldol) 1 mg PO BID [facility] Last Admin: 05/25/18 10:24 Dose: 1 mg Heparin Sodium (Porcine) (Heparin) 5,000 units SC Q12 [facility] Last Admin: 05/25/18 10:24 Dose: 5,000 units Micafungin Sodium 100 mg/ (Sodium Chloride) 100 mls @ 100 mls/hr IV Q24H [facility]; Protocol Last Admin: 05/24/18 16:00 Dose: 100 mls/hr Sodium Chloride (Sodium Chloride 0.9%) 1,000 mls @ 125 mls/hr IV .Q8H [facility] Last Admin: 05/25/18 12:20 Dose: 125 mls/hr Ibuprofen (Motrin Tab) 400 mg PO BID PRN PRN Reason: Pain, Mild (1-3) Last Admin: 05/23/18 22:36 Dose: 400 mg Insulin Aspart (Novolog) 0 unit SC ACHS [facility] Last Admin: 05/25/18 12:05 Dose: 5 u Insulin Aspart (Novolog) 10 unit SC AC AVELINA Insulin Glargine (Lantus) 6 unit SC HS [facility] Last Admin: 05/24/18 22:50 Dose: 6 unit Mirtazapine (Remeron) 15 mg PO HS [facility] Last Admin: 05/24/18 22:49 Dose: 15 mg Potassium Chloride (Potassium Chloride Oral Soln) 40 meq PO Q8H [facility] Stop: 05/25/18 23:01 Last Admin: 05/25/18 14:49 Dose: 40 meq Rosuvastatin Calcium (Crestor) 5 mg PO HS [facility] Last Admin: 05/24/18 22:51 Dose: 5 mg Tamsulosin HCl (Flomax) 0.4 mg PO DAILY [facility] Last Admin: 05/25/18 10:23 Dose: 0.4 mg Trazodone HCl (Desyrel) 50 mg PO HS [facility] Last Admin: 05/24/18 22:50 Dose: 50 mg Vancomycin HCl (Vancocin (Oral Or Rectal Use)) 250 mg PO QID [facility]; Protocol Last Admin: 05/25/18 14:49 Dose: 250 mg - Labs Labs: 05/25/18 06:10 05/25/18 06:09 - Constitutional Appears: No Acute Distress, Confused, Cachectic, Chronically Ill - Head Exam Head Exam: NORMOCEPHALIC - Eye Exam Eye Exam: absent: Scleral icterus - ENT Exam ENT Exam: Mucous Membranes Dry - Neck Exam Neck Exam: absent: Lymphadenopathy - Respiratory Exam Respiratory Exam: Decreased Breath Sounds, Rhonchi - Cardiovascular Exam Cardiovascular Exam: REGULAR RHYTHM - GI/Abdominal Exam GI & Abdominal Exam: Distended, Soft. absent: Tenderness - Rectal Exam Rectal Exam: Deferred - Exam Exam: NORMAL INSPECTION - Extremities Exam Extremities Exam: absent: Pedal Edema - Back Exam Back Exam: absent: CVA tenderness (L), CVA tenderness (R) - Neurological Exam Neurological Exam: Altered Assessment and Plan (1) DKA (diabetic ketoacidoses) Status: Acute (2) Headache Status: Acute - Assessment and Plan (Free Text) Assessment: await ENT eval to r/o fungal sinusitis doubt mucor but needs to be evaluated endoscopically if possible
--- NOTE | 2018-05-25 20:36 | PN ---
DATE: 05/25/2018 LOCATION: ICU, room 6. SUBJECTIVE: This is a 72-year-old male with recent uncontrolled type 2 insulin-requiring diabetes with extremes of glycemic fluctuations from symptomatic hypoglycemia to marked hyperglycemic accelerations as noted today. His glucose levels have ranged from 38 early this morning to over 500 mg/dL at noontime today. LABORATORY DATA: His chemistry showed a BUN of 8, sodium 136, potassium 3.3, chloride 108, CO2 of 22, glucose 83 and creatinine 1.1. ASSESSMENT: This is a 72-year-old male with uncontrolled and decompensated type 2 insulin-requiring diabetes with extremes of glycemic fluctuations, now being followed closely for metabolic management. He also has diabetic microvascular complications of retinopathy, polyneuropathy and nephropathy with diabetic macrovascular complications of cerebrovascular disease, coronary artery disease, peripheral arterial disease and vasculopathy. PLAN OF MANAGEMENT: We will modify once again his basal and bolus insulin regimen and increase the NovoLog to 10 units subcu t.i.d. before meals to start today as ordered. We will change the IV hydration to normal saline running at 125 mL/hour as given. We will continue for now the same low-dose basal insulin with Lantus given as 6 units subcu at bedtime daily and we will titrate incrementally following his fasting glucose values accordingly. We will obtain serial chemistries and supplement accordingly as needed. We will follow. Myrna Sheffield MD
[2018-05-25] MEDS: (Lantus) Insulin Glargine, Recombinant SC SCH (22:20)
--- NOTE | 2018-05-26 00:05 | CON ---
DATE: 05/23/2018 REQUESTING PHYSICIAN: Zohaib Morgan DO REASON FOR CONSULTATION: Sinusitis, headache. HISTORY OF PRESENT ILLNESS: This is a 72-year-old male with a multiple-year history of frontal headaches, on and off, moderate in intensity, frontal bilaterally. There is no nasal congestion, no nasal discharge, no throat pain, no hearing loss. PAST MEDICAL HISTORY: As noted in the chart by me. MEDICATIONS: As noted in the chart by me. ALLERGIES: NOTED IN THE CHART BY ME. PHYSICAL EXAMINATION HEAD: Atraumatic and normocephalic. FACE: Good facial movements bilaterally. CONSTITUTIONAL: Well fed, well nourished. COMMUNICATION: Communicates well and appropriately. EXTERNAL NOSE AND EARS: No masses, no lesions, no erythema, no edema. INTERNAL NOSE AND EARS: Deviated septum. No masses, no lesions, no erythema, no edema. LIPS AND GUMS: No masses, no lesions, no erythema, no edema. NECK: Supple. THYROID: No thyromegaly. No goiter. LYMPH NODES: No lymphadenopathy of the neck. DIAGNOSTIC DATA: CAT scan was reviewed by me. It reveals right frontal sinusitis. ASSESSMENT: 1. Sinusitis. 2. Headaches. 3. Deviated septum. PLAN: The patient should be on antibiotics and decongestants. Follow up in the office. Florencio Ro MD
--- NOTE | 2018-05-26 05:01 | CON ---
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 The patient has multiple medical issues. He was seen by me at [facility] with the diagnosis of intercondylar fracture of the right femur. He had an open reduction and internal fixation. Examination reveals well-healed surgical incision over the lateral aspect of the knee. Range of motion of the knee is painless. No crepitus noted. No significant swelling noted. X-rays of the right femur including the knee revealed a status post open reduction and internal fixation of intercondylar fracture of the femur with supracondylar plate with intercondylar screws, and x-rays reveal satisfactory alignment and intact internal fixation. PLAN: The plan at this point is to start the patient weightbearing as tolerated. Next to discharge the patient on range of motion exercises. We will follow the patient. Examination also revealed no evidence of calf tenderness, no palpable cords, Homans sign is negative. Mitchell Powell MD
[2018-05-26 06:36] LABS: MEAN CELL VOLUME 83.3 fL (80.0-94.0); MEAN CORPUSCULAR HEMOGLOBIN 27.3 pg (27.0-31.0); MEAN CORPUSCULAR HGB CONC 32.7 g/dL (33.0-37.0); MEAN PLATELET VOLUME 8.3 fL (7.2-11.7); RBC 3.66 Mil/uL (4.40-5.90); RED CELL DISTRIBUTION WIDTH 17.9 % (11.5-14.5); WHITE BLOOD COUNT 6.2 K/uL (4.8-10.8)
[2018-05-26 07:05] LABS: ALB/GLOB RATIO 0.8 (1.0-2.1); ALBUMIN 2.8 g/dL (3.5-5.0); ALT/SGPT 29 U/L (21-72); AST/SGOT 41 U/L (17-59); BLOOD UREA NITROGEN 12 mg/dL (9-20); CALCIUM 8.4 mg/dl (8.6-10.4); GFR NON-AFRICAN AMERICAN 55
[2018-05-26] MEDS: (Novolog) Insulin Aspart, Recombinant 100 u/ml 10 ml vial SC SCH ×7 (09:04→22:08)
[2018-05-26] MEDS: Sodium Chloride 0.9% 1,000 ML IV SCH ×4 (09:09→20:19)
[2018-05-26] MEDS: Vancomycin 125 MG/5 ML SOLN (ORAL/RECTAL) PO SCH ×4 (09:11→22:13)
[2018-05-26] MEDS: Micafungin 100 MG in Sodium Chloride 0.9% 100 ML IV SCH (15:20)
--- NOTE | 2018-05-26 16:45 | PN ---
DATE: 05/26/2018 ENDOCRINOLOGY FOLLOWUP NOTE LOCATION: ICU, room 6. SUBJECTIVE: This is a 72-year-old male with recent uncontrolled type 2 insulin-requiring diabetes with extremes of glycemic fluctuations ranging from symptomatic hypoglycemia to marked hyperglycemic accelerations as noted overnight today. His glucose values have ranged from 120 at bedtime last night, which is optimal to over 500 this morning as noted. I am still positive that they held once again the basal insulin last night causing the marked hyperglycemic levels overnight as noted. His latest glucose is 410 at lunchtime today as noted. His chemistry shows a BUN of 12, sodium 132, potassium 5.6, chloride 104, CO2 21, glucose 349, and creatinine 1.3. ASSESSMENT: This is a 72-year-old male with autonomic neuropathy with extremes of glycemic fluctuations and loss of the counterregulatory hormonal control of his glycemic profile and extreme sensitivity to insulin therapy as noted with contributory factors from withholding his insulin therapy by the nursing staff thereof. He has diabetic microvascular and macrovascular complications as mentioned in the prior progress notes as noted. PLAN OF MANAGEMENT: We will modify once again quite prudently his insulin regimen to slightly higher dosing of NovoLog given as 10 units t.i.d. before meals as ordered. We will also modify his basal insulin with Lantus given as 40 units subcutaneously at bedtime daily as given. We will titrate incrementally as indicated to optimize metabolic control. We will follow and advise accordingly. Myrna Sheffield MD
[2018-05-26] MEDS ORDERED: (Lantus) Insulin Glargine, Recombinant SC SCH (22:00)
[2018-05-27] MEDS: Sodium Chloride 0.9% 1,000 ML IV SCH ×4 (04:15→20:15)
[2018-05-27 06:18] LABS: HEMOGLOBIN 9.6 g/dL (12.0-18.0); MEAN CELL VOLUME 83.5 fL (80.0-94.0); MEAN CORPUSCULAR HEMOGLOBIN 26.5 pg (27.0-31.0); MEAN CORPUSCULAR HGB CONC 31.7 g/dL (33.0-37.0); MEAN PLATELET VOLUME 7.9 fL (7.2-11.7); RBC 3.64 Mil/uL (4.40-5.90); RED CELL DISTRIBUTION WIDTH 17.8 % (11.5-14.5); WHITE BLOOD COUNT 5.4 K/uL (4.8-10.8)
--- NOTE | 2018-05-27 06:49 | PN ---
DATE: 05/26/2018 SUBJECTIVE: I saw the patient at [facility]. He had a very rough night last night, they had to call Francisca Gomez, also had to give him Haldol. He was quite confused. He is pleasant now. He slept a little bit. He is on aspirin, Ativan, Crestor, Desyrel, Flomax, they had to give Haldol, heparin, Lantus, Motrin, micafungin, Norvasc, NovoLog, Pepcid, Remeron, IV fluids and vancomycin for C. difficile. His bowels are pasty though not watery. He says it . PHYSICAL EXAMINATION: GENERAL: He is alert. He is speaking to this morning, a little tired. HEAD: Atraumatic, normocephalic. HEART: Regular rate. LUNGS: Decreased breath sounds, but clear. ABDOMEN: Soft. Positive bowel sounds. EXTREMITIES: No edema. He's in isolation for C. difficile. LABORATORY DATA: Sodium 132, potassium 5.6, gave him Kayexalate this morning, BUN 12, creatinine 1.3, GFR is 55, sugar is 500 x2, given more insulin. Calcium is 8.4, total bili is 0.4, AST is 41, ALT 29, alk phos 112, total protein 6.2. White count 6.2, hemoglobin 10, hematocrit 30.5, platelets 390. He is here for numerous reasons. He has had elevated blood sugars, change in mentation, Clostridium difficile. He is going to back to subacute rehabilitation. We have a called in Neurology to add to Infectious Disease, Ear, Nose and Throat, and Endocrinology. He did have a sinus infection which ended up being a fungal sinus infection. He was on treatment for that already and will continue aggressive treatment and care with micafungin. Zohaib Morgan DO MTDD
[2018-05-27 06:50] LABS: ALB/GLOB RATIO 0.7 (1.0-2.1); ALBUMIN 2.5 g/dL (3.5-5.0); ALT/SGPT 27 U/L (21-72); AST/SGOT 22 U/L (17-59); BLOOD UREA NITROGEN 12 mg/dL (9-20); CALCIUM 8.3 mg/dl (8.6-10.4); GFR NON-AFRICAN AMERICAN 50
[2018-05-27] MEDS ORDERED: Glucagon Recombinant 1 mg Inj IM PRN (07:02)
[2018-05-27] MEDS ORDERED: Dextrose 50% SYRINGE Inj (50 ml) IV PRN (07:02)
--- NOTE | 2018-05-27 07:04 | PN ---
DATE: 05/26/2018 SUBJECTIVE: I saw him in the intensive care unit. He is now on a one-to-one. It is difficult to confuse from time to time. He is overall fairly stable. He is being seen by multiple doctors, Endocrinology; Infectious Disease; Ear, Nose, and Throat; Neurology; Psychiatry for altered mental status; and GI for persistent C. difficile. He is alert. He is talking to me. He tells he would not leave signing an AMA from [facility] anymore. PHYSICAL EXAMINATION: VITAL SIGNS: He has 98 temperature, 76 pulse, 123/87 blood pressure, 18 respiratory rate, 100% O2 sat on room air. HEENT: Head is atraumatic and normocephalic. HEART: Regular rate. LUNGS: Decreased breath sounds, but clear. ABDOMEN: Soft. MEDICATIONS: He is currently on aspirin, Crestor, Desyrel, Flomax, Haldol, Lantus, micafungin for the sinus fungal infection, Motrin, Norvasc, NovoLog, Pepcid, Remeron, IV fluids, and vancomycin p.o. LABORATORY DATA: He has 6.2 white count, 10 hemoglobin, 30.5 hematocrit with a 390 platelets. His last blood sugar was 209. It is pretty good for him. Sodium 132, potassium is 5.6. He was given Kayexalate, waiting for this morning's potassium to come back. His BUN 12, creatinine 1.3, GFR is 55, calcium is 8.4, AST is 41, ALT is 29, alk phos is 308. Negative for stool. He has positive C. difficile. He is on vancomycin. I called the GI for another possible treatment for his C. difficile. ASSESSMENT AND PLAN: We had Dr. Powell to see him. He had a right leg open reduction and internal fixation, stable, it is still in place. We will continue with aggressive treatment and care, physical therapy, planning to go back to [facility] at [facility] when I am okay with the other consults. He had diabetic ketoacidosis, fungal sinus infection, persistent Clostridium difficile, and weakness. Edenilson Morgan DO [facility] # [id number]
[2018-05-27] MEDS: (Novolog) Insulin Aspart, Recombinant 100 u/ml 10 ml vial SC SCH ×7 (07:50→22:30)
[2018-05-27] MEDS ORDERED: (Novolog) Insulin Aspart, Recombinant 100 u/ml 10 ml vial SC ONE (08:44)
--- NOTE | 2018-05-27 08:59 | CP.PCM.CON ---
<Humble Franks - Last Filed: 05/27/18 08:54> History of Present Illness - History of Present Illness History of Present Illness: GI Fellow PGY4, consult note. Ferny Davidson is a 72M with hx of uncontrolled DM, CKD, CAD, CHF, HTN, PUD presenting with DKA and chronic diarrhea. Patient was placed in ICU for DKA managament has been improving. Patient has been having diarrhea for 2 months, 6- 7x/day. Denies blood in stool or abodminal pain. he has not changed his diet but has been on several abx recently for pneumonia as well as in and out of hospitals and nursing facilities. He has recently been diagnosed with C. Diff and placed on PO vanco and seen in GI office. Patient has not been improving in the last 2 weeks. PMHx: See HPI PSHx: left shoulder torn ligament, right hip replacement, TURP, B/L inguinal hernia repair 04/2014 FHx: denies colon cancer Social: prior [id number] years(quit 30 years), heavy alcohol abuse for 20 years, endorsed sobriety for 30 years, denies illicit drug use Endo: Colon 03/12 - 5 tubular adenomas. EGD 03/12 - LA C esophagitis 12pt ROS completed and negative except for above. Past Patient History - Infectious Disease Hx of Infectious Diseases: None - Tetanus Immunizations Tetanus Immunization: Unknown - Past Medical History & Family History Past Medical History?: Yes - Past Social History Smoking Status: Former Smoker - CARDIAC Hx Congestive Heart Failure: Yes Hx Hypercholesterolemia: Yes Hx Hypertension: Yes - PULMONARY Hx Pneumonia: Yes - NEUROLOGICAL Hx Dementia: Yes Hx Seizures: Yes (pt denies) - HEENT Hx HEENT Problems: Yes (LEFT EYE BLIND) Hx Cataracts: Yes (BILATERAL) Other/Comment: rt eye cataract sx - RENAL Hx Chronic Kidney Disease: Yes - ENDOCRINE/METABOLIC Hx Diabetes Mellitus Type 2: Yes - HEMATOLOGICAL/ONCOLOGICAL Hx Anemia: Yes - INTEGUMENTARY Hx Dermatological Problems: Yes Other/Comment: 03-03-18 HEALING SACRAL PRESSURE ULCER.SCARRED AREA MORE TO LEFT. - MUSCULOSKELETAL/RHEUMATOLOGICAL Hx Arthritis: Yes - GASTROINTESTINAL Hx Pancreatitis: Yes - GENITOURINARY/GYNECOLOGICAL Hx Genitourinary Disorders: Yes Hx Prostate Problems: Yes (R TURP for BPH) - PSYCHIATRIC Hx Substance Use: No - SURGICAL HISTORY Hx Surgeries: Yes Hx Cataract Extraction: Yes Hx Eye Surgery: Yes Hx Herniorrhaphy: Yes (Inguinal) Hx Vascular Access Device: Yes Other/Comment: hemorrhoidectomy - ANESTHESIA Hx Anesthesia: Yes Hx Anesthesia Reactions: No Hx Malignant Hyperthermia: No Meds Allergies/Adverse Reactions: Allergies Allergy/AdvReac Type Severity Reaction Status Date / Time No Known Allergies Allergy Verified 05/23/18 12:17 - Medications Medications: Current Medications Amlodipine Besylate (Norvasc) 10 mg PO DAILY [facility] Last Admin: 05/26/18 09:22 Dose: 10 mg Aspirin (Aspirin Chewable) 81 mg PO DAILY [facility] Last Admin: 05/26/18 09:23 Dose: 81 mg Dextrose (Dextrose 50% Inj) 0 ml IV STAT PRN; Protocol PRN Reason: Hypoglycemia Protocol Dextrose (Glutose 15) 0 gm PO ONCE PRN; Protocol PRN Reason: Hypoglycemia Protocol Famotidine (Pepcid) 40 mg PO DAILY [facility] Last Admin: 05/26/18 09:21 Dose: 40 mg Glucagon (Glucagen Diagnostic Kit) 0 mg IM STAT PRN; Protocol PRN Reason: Hypoglycemia Protocol Haloperidol (Haldol) 1 mg PO BID [facility] Last Admin: 05/26/18 17:11 Dose: 1 mg Micafungin Sodium 100 mg/ (Sodium Chloride) 100 mls @ 100 mls/hr IV Q24H [facility]; Protocol Last Admin: 05/26/18 15:20 Dose: 100 mls/hr Sodium Chloride (Sodium Chloride 0.9%) 1,000 mls @ 125 mls/hr IV .Q8H [facility] Last Admin: 05/27/18 04:39 Dose: 125 mls/hr Dextrose (Dextrose 5% In Water 1000 Ml) 1,000 mls @ 0 mls/hr IV .Q0M PRN; Protocol PRN Reason: Hypoglycemia Protocol Ibuprofen (Motrin Tab) 400 mg PO BID PRN PRN Reason: Pain, Mild (1-3) Last Admin: 05/27/18 06:05 Dose: 400 mg Insulin Aspart (Novolog) 0 unit SC ACHS [facility] Last Admin: 05/27/18 07:50 Dose: Not Given Insulin Aspart (Novolog) 4 unit SC AC [facility] Insulin Glargine (Lantus) 6 unit SC HS [facility] Mirtazapine (Remeron) 15 mg PO HS [facility] Last Admin: 05/26/18 22:05 Dose: 15 mg Rosuvastatin Calcium (Crestor) 5 mg PO [facility] Last Admin: 05/26/18 22:06 Dose: 5 mg Tamsulosin HCl (Flomax) 0.4 mg PO DAILY [facility] Last Admin: 05/26/18 09:22 Dose: 0.4 mg Trazodone HCl (Desyrel) 50 mg PO [facility] Last Admin: 05/26/18 22:05 Dose: 50 mg Vancomycin HCl (Vancocin (Oral Or Rectal Use)) 250 mg PO QID [facility]; Protocol Last Admin: 05/26/18 22:13 Dose: 250 mg Physical Exam - Constitutional Appears: Well, Non-toxic - Head Exam Head Exam: ATRAUMATIC, NORMAL INSPECTION - Eye Exam Eye Exam: EOMI, Normal appearance - ENT Exam ENT Exam: Mucous Membranes Moist, Normal Exam - Respiratory Exam Respiratory Exam: Clear to Auscultation Bilateral, NORMAL BREATHING PATTERN - Cardiovascular Exam Cardiovascular Exam: REGULAR RHYTHM, +S1, +S2 - GI/Abdominal Exam GI & Abdominal Exam: Normal Bowel Sounds, Soft. absent: Organomegaly, Tenderness - Neurological Exam Neurological exam: Alert, CN II-XII Intact, Oriented x3 - Psychiatric Exam Psychiatric exam: Normal Affect, Normal Mood - Skin Skin Exam: Normal Color, Warm Results - Vital Signs Recent Vital Signs: Last Vital Signs Temp 97.8 F 05/27/18 04:00 Pulse 76 05/27/18 04:00 Resp 18 05/27/18 04:00 BP 123/87 05/27/18 04:00 Pulse Ox 100 05/27/18 04:00 - Labs Result Diagrams: 05/27/18 06:14 05/27/18 06:14 Labs: Laboratory Results - last 24 hr 05/26/18 05/26/18 05/26/18 08:48 08:54 11:55 WBC RBC Hgb Hct MCV MCH MCHC RDW Plt Count MPV Sodium Potassium Chloride Carbon Dioxide Anion Gap BUN Creatinine Est GFR ( Amer) Est GFR (Non-Af Amer) POC Glucose (mg/dL) > 500 H* > 500 H* 410 H* Random Glucose Calcium Total Bilirubin AST ALT Alkaline Phosphatase Ammonia Total Protein Albumin Globulin Albumin/Globulin Ratio 05/26/18 05/26/18 05/26/18 16:07 16:09 21:32 WBC RBC Hgb Hct MCV MCH MCHC RDW Plt Count MPV Sodium Potassium Chloride Carbon Dioxide Anion Gap BUN Creatinine Est GFR ( Amer) Est GFR (Non-Af Amer) POC Glucose (mg/dL) 50 L 84 209 H Random Glucose Calcium Total Bilirubin AST ALT Alkaline Phosphatase Ammonia Total Protein Albumin Globulin Albumin/Globulin Ratio 05/27/18 05/27/18 05/27/18 06:14 06:14 06:14 WBC 5.4 RBC 3.64 L Hgb 9.6 L Hct 30.4 L MCV 83.5 MCH 26.5 L MCHC 31.7 L RDW 17.8 H Plt Count 410 H MPV 7.9 Sodium 137 Potassium 3.7 Chloride 109 H Carbon Dioxide 22 Anion Gap 9 L BUN 12 Creatinine 1.4 Est GFR ( Amer) > 60 Est GFR (Non-Af Amer) 50 POC Glucose (mg/dL) Random Glucose 36 L* D Calcium 8.3 L Total Bilirubin 0.3 AST 22 ALT 27 Alkaline Phosphatase 232 H D Ammonia < 9 L Total Protein 6.0 L Albumin 2.5 L Globulin 3.4 Albumin/Globulin Ratio 0.7 L 05/27/18 05/27/18 05/27/18 06:55 06:57 07:36 WBC RBC Hgb Hct MCV MCH MCHC RDW Plt Count MPV Sodium Potassium Chloride Carbon Dioxide Anion Gap BUN Creatinine Est GFR ( Amer) Est GFR (Non-Af Amer) POC Glucose (mg/dL) 39 L 36 L* 101 Random Glucose Calcium Total Bilirubin AST ALT Alkaline Phosphatase Ammonia Total Protein Albumin Globulin Albumin/Globulin Ratio Assessment & Plan - Assessment and Plan (Free Text) Assessment: #CDAD (C. diff) #H/o fundic ulcer and esophagitis #Tubular adenomas (03/12) #T2DM, uncontrolled #HTN, CHF, CKD #Sinusitis PLAN: -Previously on PO vanco without significant improvement. Infection is currently non-severe. -Add IV flagyl to PO vanco -Remove dairy and gluten from diet to avoid confusion of infectious vs dietary component of diarrhea -No endoscopic procedure planned at this time -Continue PPI -Needs outpatient colonoscopy in 1-3 years for adenomas. Case discussed with Dr. Rdz, see attestation. - Date & Time Date: 05/27/18 Time: 09:06 <Rubén Rdz Y - Last Filed: 05/27/18 09:22> Meds - Medications Medications: Current Medications Amlodipine Besylate (Norvasc) 10 mg PO DAILY [facility] Last Admin: 05/26/18 09:22 Dose: 10 mg Aspirin (Aspirin Chewable) 81 mg PO DAILY [facility] Last Admin: 05/26/18 09:23 Dose: 81 mg Dextrose (Dextrose 50% Inj) 0 ml IV STAT PRN; Protocol PRN Reason: Hypoglycemia Protocol Dextrose (Glutose 15) 0 gm PO ONCE PRN; Protocol PRN Reason: Hypoglycemia Protocol Famotidine (Pepcid) 40 mg PO DAILY [facility] Last Admin: 05/26/18 09:21 Dose: 40 mg Glucagon (Glucagen Diagnostic Kit) 0 mg IM STAT PRN; Protocol PRN Reason: Hypoglycemia Protocol Haloperidol (Haldol) 1 mg PO BID [facility] Last Admin: 05/26/18 17:11 Dose: 1 mg Micafungin Sodium 100 mg/ (Sodium Chloride) 100 mls @ 100 mls/hr IV Q24H [facility]; Protocol Last Admin: 05/26/18 15:20 Dose: 100 mls/hr Sodium Chloride (Sodium Chloride 0.9%) 1,000 mls @ 125 mls/hr IV .Q8H [facility] Last Admin: 05/27/18 04:39 Dose: 125 mls/hr Dextrose (Dextrose 5% In Water 1000 Ml) 1,000 mls @ 0 mls/hr IV .Q0M PRN; Protocol PRN Reason: Hypoglycemia Protocol Metronidazole (Flagyl) 500 mg in 100 mls @ 100 mls/hr IVPB Q8H [facility]; Protocol Ibuprofen (Motrin Tab) 400 mg PO BID PRN PRN Reason: Pain, Mild (1-3) Last Admin: 05/27/18 06:05 Dose: 400 mg Insulin Aspart (Novolog) 0 unit SC ACHS [facility] Last Admin: 05/27/18 07:50 Dose: Not Given Insulin Aspart (Novolog) 4 unit SC AC [facility] Insulin Glargine (Lantus) 6 unit SC HS [facility] Mirtazapine (Remeron) 15 mg PO HS [facility] Last Admin: 05/26/18 22:05 Dose: 15 mg Rosuvastatin Calcium (Crestor) 5 mg PO HS [facility] Last Admin: 05/26/18 22:06 Dose: 5 mg Tamsulosin HCl (Flomax) 0.4 mg PO DAILY [facility] Last Admin: 05/26/18 09:22 Dose: 0.4 mg Trazodone HCl (Desyrel) 50 mg PO HS [facility] Last Admin: 05/26/18 22:05 Dose: 50 mg Vancomycin HCl (Vancocin (Oral Or Rectal Use)) 250 mg PO QID [facility]; Protocol Last Admin: 05/26/18 22:13 Dose: 250 mg Results - Vital Signs Recent Vital Signs: Last Vital Signs Temp 97.8 F 05/27/18 04:00 Pulse 76 05/27/18 04:00 Resp 18 05/27/18 04:00 BP 123/87 05/27/18 04:00 Pulse Ox 100 05/27/18 04:00 - Labs Result Diagrams: 05/27/18 06:14 05/27/18 06:14 Labs: Laboratory Results - last 24 hr 05/26/18 05/26/18 05/26/18 11:55 16:07 16:09 WBC RBC Hgb Hct MCV MCH MCHC RDW Plt Count MPV Sodium Potassium Chloride Carbon Dioxide Anion Gap BUN Creatinine Est GFR ( Amer) Est GFR (Non-Af Amer) POC Glucose (mg/dL) 410 H* 50 L 84 Random Glucose Calcium Total Bilirubin AST ALT Alkaline Phosphatase Ammonia Total Protein Albumin Globulin Albumin/Globulin Ratio 05/26/18 05/27/18 05/27/18 21:32 06:14 06:14 WBC 5.4 RBC 3.64 L Hgb 9.6 L Hct 30.4 L MCV 83.5 MCH 26.5 L MCHC 31.7 L RDW 17.8 H Plt Count 410 H MPV 7.9 Sodium 137 Potassium 3.7 Chloride 109 H Carbon Dioxide 22 Anion Gap 9 L BUN 12 Creatinine 1.4 Est GFR ( Amer) > 60 Est GFR (Non-Af Amer) 50 POC Glucose (mg/dL) 209 H Random Glucose 36 L* D Calcium 8.3 L Total Bilirubin 0.3 AST 22 ALT 27 Alkaline Phosphatase 232 H D Ammonia Total Protein 6.0 L Albumin 2.5 L Globulin 3.4 Albumin/Globulin Ratio 0.7 L 05/27/18 05/27/18 05/27/18 06:14 06:55 06:57 WBC RBC Hgb Hct MCV MCH MCHC RDW Plt Count MPV Sodium Potassium Chloride Carbon Dioxide Anion Gap BUN Creatinine Est GFR ( Amer) Est GFR (Non-Af Amer) POC Glucose (mg/dL) 39 L 36 L* Random Glucose Calcium Total Bilirubin AST ALT Alkaline Phosphatase Ammonia < 9 L Total Protein Albumin Globulin Albumin/Globulin Ratio 05/27/18 07:36 WBC RBC Hgb Hct MCV MCH MCHC RDW Plt Count MPV Sodium Potassium Chloride Carbon Dioxide Anion Gap BUN Creatinine Est GFR ( Amer) Est GFR (Non-Af Amer) POC Glucose (mg/dL) 101 Random Glucose Calcium Total Bilirubin AST ALT Alkaline Phosphatase Ammonia Total Protein Albumin Globulin Albumin/Globulin Ratio Attending/Attestation - Attestation I have personally seen and examined this patient.: Yes I have fully participated in the care of the patient.: Yes I have reviewed all pertinent clinical information: Yes Notes (Text): 05/27/18 09:17 I have seen and examined patient with GI fellow. Agree with above documentation with the following additions. In brief, this is a 72 year old male with history of uncontrolled DM, CKD, CAD, CHF, who presents to hospital with complaint of persistent diarrhea and hyperglycemia. He was noted to be recently diagnosed with c-difficile associated colitis in senior care one month ago and had been on Vancomycin therapy. He reports having multiple loose bowel movements daily up to 6 episodes without presence of blood in stool. He denies abdominal pain, nausea, vomiting, fever/chills, weight loss. He had recent EGD/colonoscopy in February 2018 which showed multiple colon polyps, erosive esophagitis. DM - not controlled CKD CAD CHF Diarrhea - c-difficile associated colitis - Will adjust diet to exclude dairy and gluten - Maintain strict glycemic control - Given non-optimal response to PO vancomycin monotherapy as outpatient, will add IV Flagyl for supplemental benefit and observe clincal response - Would add probiotic therapy - Continue to monitor patient clinical course
[2018-05-27] MEDS: metroNIDAZOLE IV 500 mg/100 ml 500 MG/100 ML BAG IVPB SCH ×2 (10:00→16:34)
[2018-05-27] MEDS: Vancomycin 125 MG/5 ML SOLN (ORAL/RECTAL) PO SCH ×5 (10:40→23:34)
--- NOTE | 2018-05-27 15:23 | CON ---
DATE: 05/27/2018 CHIEF COMPLAINT: Change in mental status. HISTORY OF PRESENT ILLNESS: The patient is a 72-year-old man with history of uncontrolled diabetes with hyperglycemic and hypoglycemic fluctuations, CKD, coronary artery disease, CHF, hypertension, and peptic ulcer disease, presenting with elevated blood sugars, lethargy, and chronic diarrhea, was placed in ICU for DKA management and has been improving and in terms of mental status, though, has fluctuating confusion episodes, which is likely secondary to his hyperglycemia/hypoglycemic accelerations. Today's blood sugar is low at 35 where his blood sugar needs to be adjusted and kept between 140 to 180. GI is on board for frequent diarrhea. He has been in and out of the nursing homes. No focal weakness in lower extremities. He has diabetic peripheral neuropathy on neuro exam. PAST MEDICAL HISTORY: As above. PAST SURGICAL HISTORY: Left shoulder torn ligament, right hip replacement, TURP, and bilateral inguinal hernia repair in 04/2014. FAMILY HISTORY: Noncontributory. SOCIAL HISTORY: Prior smoker, 3-4 packs per day for the past 35 years, quit 30 years ago. Heavy alcohol abuse for 20 years and/or sobriety for the past 30 years. ENDOSCOPY: In 02/2018 shows prior tubular adenomas. EGD on shows esophagitis. REVIEW OF SYSTEMS: A 14-point review of systems negative except in the HPI. FAMILY HISTORY: Noncontributory. MEDICATIONS: Reviewed by nurse reconciliation sheet. PHYSICAL EXAMINATION: GENERAL: The patient is sitting up in bed, in no acute distress. VITAL SIGNS: Temperature 97.8, pulse rate 76, blood pressure 123/87, and respiratory rate 18. HEENT: Atraumatic, normocephalic. PERRLA. Extraocular muscles are intact. NECK: Supple. No JVD. No adenopathy noted. LUNGS: Clear to auscultation. No adventitious sounds. HEART: S1 and S2. Normal rate and rhythm. No murmurs, rubs, or gallops. ABDOMEN: Soft, nontender, and nondistended. Bowel sounds are present. EXTREMITIES: No clubbing. No cyanosis. Peripheral pulses are 2+ bilaterally. NEUROLOGIC: The patient is alert and oriented to person, place, and year. Recall after 5 minutes is 0/2. Poor attention span. Slow thought process. Speech is fluent without any errors. Cranial nerves II through XII are intact. Motor Exam: Moves all extremities equally. No pronator drift seen. Sensory Exam: Decreased light touch and pinprick up to the calves bilaterally, decreased vibration of the toes. DTRs are 2+ throughout and 1 at both knees and ankles. Coordination: [id number] intact. No dysmetria noted. Gait deferred for now. LABORATORY DATA: Sodium is 137, potassium 3.7, chloride 109, carbon dioxide 22, BUN of 12, creatinine 1.4, . ASSESSMENT AND PLAN: Change in mental status secondary to underlying hyperglycemia/hypoglycemic events with underlying cognitive impairment. At this time, we would recommend: 1. Keep his blood sugars between 140 to 180. 2. To avoid metabolic encephalopathy caused by diabetes. We would recommend to have his diabetic medications adjusted and diabetic diet. 3. Adequate hydration throughout the day and PT/OT for mild neuropathy on his examination for poor balance. At this time, also recommend to remove dairy and gluten from his diet to avoid confusion with infectious versus dietary component of diarrhea and to continue with current and present medical management. Thank you for this consult. Juan Pablo Rangel MD
--- NOTE | 2018-05-27 15:41 | PN ---
DATE: 05/27/2018 ENDO FOLLOWUP NOTE. LOCATION: In ICU room 6. SUBJECTIVE: This is a 72-year-old male with recent uncontrolled type 2 insulin-requiring diabetes with extremes of glycemic fluctuations, currently now developing overnight once again asymptomatic hypoglycemic episode and the glucose value today of 36 mg/dL. His latest glucose was 101 at breakfast time this morning. LABORATORY DATA: The chemistries overnight showed a BUN of 12, sodium 137, potassium 3.7, chloride 109, CO2 of 22, glucose 36, and creatinine 1.4. His ammonia level is less than 9. ASSESSMENT: This is a 72-year-old male with uncontrolled and decompensated type 2 insulin-requiring diabetes with extremes of glycemic fluctuations from hypoglycemia to marked hyperglycemic accelerations as noted over the last 48 hours. His glucose levels were all over 500 mg/dL. PLAN: So, at this time, we will once again modify his basal and bolus insulin regimen to adapt with extremes of glycemic fluctuations and also to the variability of his oral intake. We will lower the NovoLog to 4 units subcutaneously t.i.d. before meals to start today as ordered. We will also lower the Lantus, to give the basal insulin to 6 units subcutaneously at bedtime daily as given. We will obtain serial chemistries and supplement accordingly as needed. We will follow with you. Myrna Sheffield MD
--- NOTE | 2018-05-27 16:00 | CP.PCM.PN ---
Subjective - Date & Time of Evaluation Date of Evaluation: 05/27/18 Time of Evaluation: 07:00 - Subjective Subjective: events noted afeb in ICU denies diarrhea await ENT eval sinus infection/ r/o invasive fungus empiric iv rx in progress Objective - Vital Signs/Intake and Output Vital Signs (last 24 hours): Temp Pulse Resp BP Pulse Ox 99.1 F 82 24 117/70 100 05/27/18 12:00 05/27/18 12:00 05/27/18 12:00 05/27/18 12:00 05/27/18 12:00 Intake and Output: 05/27/18 05/27/18 06:59 18:59 Intake Total 1650 1255 Output Total 400 200 Balance 1250 1055 - Medications Medications: Current Medications Amlodipine Besylate (Norvasc) 10 mg PO DAILY [facility] Last Admin: 05/27/18 10:39 Dose: 10 mg Aspirin (Aspirin Chewable) 81 mg PO DAILY [facility] Last Admin: 05/27/18 10:39 Dose: 81 mg Dextrose (Dextrose 50% Inj) 0 ml IV STAT PRN; Protocol PRN Reason: Hypoglycemia Protocol Dextrose (Glutose 15) 0 gm PO ONCE PRN; Protocol PRN Reason: Hypoglycemia Protocol Famotidine (Pepcid) 40 mg PO DAILY [facility] Last Admin: 05/27/18 10:39 Dose: 40 mg Glucagon (Glucagen Diagnostic Kit) 0 mg IM STAT PRN; Protocol PRN Reason: Hypoglycemia Protocol Haloperidol (Haldol) 1 mg PO BID [facility] Last Admin: 05/27/18 10:39 Dose: 1 mg Micafungin Sodium 100 mg/ (Sodium Chloride) 100 mls @ 100 mls/hr IV Q24H [facility]; Protocol Last Admin: 05/26/18 15:20 Dose: 100 mls/hr Sodium Chloride (Sodium Chloride 0.9%) 1,000 mls @ 125 mls/hr IV .Q8H [facility] Last Admin: 05/27/18 04:39 Dose: 125 mls/hr Dextrose (Dextrose 5% In Water 1000 Ml) 1,000 mls @ 0 mls/hr IV .Q0M PRN; Protocol PRN Reason: Hypoglycemia Protocol Metronidazole (Flagyl) 500 mg in 100 mls @ 100 mls/hr IVPB Q8H [facility]; Protocol Ibuprofen (Motrin Tab) 400 mg PO BID PRN PRN Reason: Pain, Mild (1-3) Last Admin: 05/27/18 06:05 Dose: 400 mg Insulin Aspart (Novolog) 0 unit SC ACHS [facility] Last Admin: 05/27/18 12:20 Dose: Not Given Insulin Aspart (Novolog) 4 unit SC AC [facility] Last Admin: 05/27/18 12:20 Dose: 4 units Insulin Glargine (Lantus) 6 unit SC HS [facility] Mirtazapine (Remeron) 15 mg PO HS [facility] Last Admin: 05/26/18 22:05 Dose: 15 mg Rosuvastatin Calcium (Crestor) 5 mg PO HS [facility] Last Admin: 05/26/18 22:06 Dose: 5 mg Tamsulosin HCl (Flomax) 0.4 mg PO DAILY [facility] Last Admin: 05/27/18 10:39 Dose: 0.4 mg Trazodone HCl (Desyrel) 50 mg PO HS [facility] Last Admin: 05/26/18 22:05 Dose: 50 mg Vancomycin HCl (Vancocin (Oral Or Rectal Use)) 250 mg PO QID [facility]; Protocol Last Admin: 05/27/18 13:33 Dose: 250 mg - Labs Labs: 05/27/18 06:14 05/27/18 06:14 - Constitutional Appears: Cachectic, Chronically Ill - Head Exam Head Exam: NORMAL INSPECTION - Eye Exam Eye Exam: absent: Scleral icterus - ENT Exam ENT Exam: Mucous Membranes Dry - Neck Exam Neck Exam: absent: Lymphadenopathy - Respiratory Exam Respiratory Exam: Decreased Breath Sounds - Cardiovascular Exam Cardiovascular Exam: REGULAR RHYTHM - GI/Abdominal Exam GI & Abdominal Exam: Distended - Rectal Exam Rectal Exam: Deferred - Exam Exam: NORMAL INSPECTION - Extremities Exam Extremities Exam: absent: Pedal Edema - Back Exam Back Exam: absent: CVA tenderness (L), CVA tenderness (R) - Neurological Exam Neurological Exam: Alert, Awake Assessment and Plan (1) DKA (diabetic ketoacidoses) Status: Acute (2) Headache Status: Acute - Assessment and Plan (Free Text) Assessment: cont empiric rx will avoid antibiotics cont antifungal rx await ENT eval
[2018-05-27] MEDS: Micafungin 100 MG in Sodium Chloride 0.9% 100 ML IV SCH (16:22)
--- NOTE | 2018-05-27 18:30 | CP.PCM.PCO ---
Physician Communication Note - Physician Communication Note Physician Communication Note: see above
[2018-05-27] MEDS: (Lantus) Insulin Glargine, Recombinant SC SCH (22:30)
[2018-05-28] MEDS: metroNIDAZOLE IV 500 mg/100 ml 500 MG/100 ML BAG IVPB SCH ×3 (01:00→16:00)
[2018-05-28] MEDS: Sodium Chloride 0.9% 1,000 ML IV SCH ×3 (03:25→20:24)
[2018-05-28 06:39] LABS: HEMOGLOBIN 9.1 g/dL (12.0-18.0); MEAN CELL VOLUME 83.4 fL (80.0-94.0); MEAN CORPUSCULAR HEMOGLOBIN 27.2 pg (27.0-31.0); MEAN CORPUSCULAR HGB CONC 32.7 g/dL (33.0-37.0); MEAN PLATELET VOLUME 7.3 fL (7.2-11.7); RBC 3.36 Mil/uL (4.40-5.90); WHITE BLOOD COUNT 5.2 K/uL (4.8-10.8)
[2018-05-28 06:52] LABS: ALB/GLOB RATIO 0.8 (1.0-2.1); ALBUMIN 2.6 g/dL (3.5-5.0); ALT/SGPT 29 U/L (21-72); AST/SGOT 25 U/L (17-59); BLOOD UREA NITROGEN 14 mg/dL (9-20); CALCIUM 8.4 mg/dl (8.6-10.4); GFR NON-AFRICAN AMERICAN 60
--- NOTE | 2018-05-28 07:28 | CP.PCM.PN ---
<Humble Franks - Last Filed: 05/28/18 12:43> Subjective - Date & Time of Evaluation Date of Evaluation: 05/28/18 Time of Evaluation: 07:25 - Subjective Subjective: GI Fellow PGY4, Progress note. Patient is feeling better than yesterday overall. He reports a formed BM today (nurse confirms). He is having less BMs overall than yesterday. Denies abdominal pain. 5pt ROS completed and negative except for above. Objective - Vital Signs/Intake and Output Vital Signs (last 24 hours): Temp Pulse Resp BP Pulse Ox 98.2 F 76 18 136/82 100 05/28/18 04:00 05/28/18 04:00 05/28/18 04:00 05/28/18 04:00 05/28/18 04:00 Intake and Output: 05/28/18 05/28/18 06:59 18:59 Intake Total 100 1655 Output Total 625 Balance 100 1030 - Medications Medications: Current Medications Amlodipine Besylate (Norvasc) 10 mg PO DAILY [facility] Last Admin: 05/27/18 10:39 Dose: 10 mg Aspirin (Aspirin Chewable) 81 mg PO DAILY [facility] Last Admin: 05/27/18 10:39 Dose: 81 mg Dextrose (Dextrose 50% Inj) 0 ml IV STAT PRN; Protocol PRN Reason: Hypoglycemia Protocol Dextrose (Glutose 15) 0 gm PO ONCE PRN; Protocol PRN Reason: Hypoglycemia Protocol Famotidine (Pepcid) 40 mg PO DAILY [facility] Last Admin: 05/27/18 10:39 Dose: 40 mg Glucagon (Glucagen Diagnostic Kit) 0 mg IM STAT PRN; Protocol PRN Reason: Hypoglycemia Protocol Haloperidol (Haldol) 1 mg PO BID [facility] Last Admin: 05/27/18 17:32 Dose: 1 mg Micafungin Sodium 100 mg/ (Sodium Chloride) 100 mls @ 100 mls/hr IV Q24H [facility]; Protocol Last Admin: 05/27/18 16:22 Dose: 100 mls/hr Sodium Chloride (Sodium Chloride 0.9%) 1,000 mls @ 125 mls/hr IV .Q8H [facility] Last Admin: 05/27/18 20:15 Dose: Not Given Dextrose (Dextrose 5% In Water 1000 Ml) 1,000 mls @ 0 mls/hr IV .Q0M PRN; Protocol PRN Reason: Hypoglycemia Protocol Metronidazole (Flagyl) 500 mg in 100 mls @ 100 mls/hr IVPB Q8H [facility]; Protocol Last Admin: 05/28/18 01:00 Dose: 100 mls/hr Ibuprofen (Motrin Tab) 400 mg PO BID PRN PRN Reason: Pain, Mild (1-3) Last Admin: 05/27/18 06:05 Dose: 400 mg Insulin Aspart (Novolog) 0 unit SC ACHS [facility] Last Admin: 05/27/18 22:30 Dose: Not Given Insulin Aspart (Novolog) 4 unit SC AC [facility] Last Admin: 05/27/18 17:32 Dose: 4 units Insulin Glargine (Lantus) 6 unit SC HS [facility] Last Admin: 05/27/18 22:30 Dose: 6 units Mirtazapine (Remeron) 15 mg PO HS [facility] Last Admin: 05/27/18 23:00 Dose: 15 mg Rosuvastatin Calcium (Crestor) 5 mg PO HS [facility] Last Admin: 05/27/18 23:31 Dose: 5 mg Tamsulosin HCl (Flomax) 0.4 mg PO DAILY [facility] Last Admin: 05/27/18 10:39 Dose: 0.4 mg Trazodone HCl (Desyrel) 50 mg PO HS [facility] Last Admin: 05/28/18 02:49 Dose: 50 mg Vancomycin HCl (Vancocin (Oral Or Rectal Use)) 250 mg PO QID [facility]; Protocol Last Admin: 05/27/18 22:30 Dose: 250 mg - Labs Labs: 05/28/18 06:26 05/28/18 06:26 - Constitutional Appears: Well, Non-toxic - Head Exam Head Exam: ATRAUMATIC, NORMAL INSPECTION - ENT Exam ENT Exam: Mucous Membranes Moist, Normal Exam - Respiratory Exam Respiratory Exam: Clear to Ausculation Bilateral, NORMAL BREATHING PATTERN - Cardiovascular Exam Cardiovascular Exam: REGULAR RHYTHM, +S1, +S2 - GI/Abdominal Exam GI & Abdominal Exam: Soft, Normal Bowel Sounds. absent: Tenderness - Extremities Exam Extremities Exam: Normal Inspection, Tenderness - Neurological Exam Neurological Exam: Alert, Awake, Oriented x3 - Psychiatric Exam Psychiatric exam: Normal Affect, Normal Mood - Skin Skin Exam: Normal Color, Warm Assessment and Plan - Assessment and Plan (Free Text) Assessment: #CDAD (C. diff) - improving #H/o fundic ulcer and esophagitis #Tubular adenomas (03/12) #T2DM, uncontrolled #HTN, CHF, CKD #Sinusitis PLAN: -Previously on PO vanco without significant improvement. Infection is currently non-severe. -Added IV flagyl to PO vanco 05/27/17 with good results. Continue current course until 06/06/17 -Remove dairy and gluten from diet to avoid confusion of infectious vs dietary component of diarrhea -Add probiotics -No endoscopic procedure planned at this time -Continue PPI -Needs outpatient colonoscopy in 1-3 years for adenomas. Case discussed with Dr. Rdz, see attestation. <Rubén Rdz - Last Filed: 05/28/18 14:18> Objective - Vital Signs/Intake and Output Vital Signs (last 24 hours): Temp Pulse Resp BP Pulse Ox 97.6 F 72 19 140/88 100 05/28/18 08:00 05/28/18 08:00 05/28/18 08:00 05/28/18 08:00 05/28/18 08:00 Intake and Output: 05/28/18 05/28/18 06:59 18:59 Intake Total 100 1655 Output Total 625 Balance 100 1030 - Medications Medications: Current Medications Amlodipine Besylate (Norvasc) 10 mg PO DAILY [facility] Last Admin: 05/28/18 09:25 Dose: 10 mg Aspirin (Aspirin Chewable) 81 mg PO DAILY [facility] Last Admin: 05/28/18 09:23 Dose: 81 mg Dextrose (Dextrose 50% Inj) 0 ml IV STAT PRN; Protocol PRN Reason: Hypoglycemia Protocol Dextrose (Glutose 15) 0 gm PO ONCE PRN; Protocol PRN Reason: Hypoglycemia Protocol Famotidine (Pepcid) 40 mg PO DAILY [facility] Last Admin: 05/28/18 09:25 Dose: 40 mg Glucagon (Glucagen Diagnostic Kit) 0 mg IM STAT PRN; Protocol PRN Reason: Hypoglycemia Protocol Haloperidol (Haldol) 1 mg PO BID [facility] Last Admin: 05/28/18 09:24 Dose: 1 mg Micafungin Sodium 100 mg/ (Sodium Chloride) 100 mls @ 100 mls/hr IV Q24H [facility]; Protocol Last Admin: 05/27/18 16:22 Dose: 100 mls/hr Sodium Chloride (Sodium Chloride 0.9%) 1,000 mls @ 125 mls/hr IV .Q8H [facility] Last Admin: 05/28/18 03:25 Dose: 125 mls/hr Dextrose (Dextrose 5% In Water 1000 Ml) 1,000 mls @ 0 mls/hr IV .Q0M PRN; Prot ocol PRN Reason: Hypoglycemia Protocol Metronidazole (Flagyl) 500 mg in 100 mls @ 100 mls/hr IVPB Q8H [facility]; Protocol Last Admin: 05/28/18 09:00 Dose: 100 mls/hr Ibuprofen (Motrin Tab) 400 mg PO BID PRN PRN Reason: Pain, Mild (1-3) Last Admin: 05/28/18 09:41 Dose: 400 mg Insulin Aspart (Novolog) 0 unit SC ACHS [facility] Last Admin: 05/28/18 12:30 Dose: Not Given Insulin Aspart (Novolog) 4 unit SC AC [facility] Last Admin: 05/28/18 12:30 Dose: 4 units Insulin Glargine (Lantus) 6 unit SC HS [facility] Last Admin: 05/27/18 22:30 Dose: 6 units Lactobacillus Acidophilus (Bacid Acidophilus) 1 cap PO BID [facility] Last Admin: 05/28/18 09:28 Dose: 1 cap Mirtazapine (Remeron) 15 mg PO [facility] Last Admin: 05/27/18 23:00 Dose: 15 mg Rosuvastatin Calcium (Crestor) 5 mg PO [facility] Last Admin: 05/27/18 23:31 Dose: 5 mg Tamsulosin HCl (Flomax) 0.4 mg PO DAILY [facility] Last Admin: 05/28/18 09:24 Dose: 0.4 mg Trazodone HCl (Desyrel) 50 mg PO [facility] Last Admin: 05/28/18 02:49 Dose: 50 mg Vancomycin HCl (Vancocin (Oral Or Rectal Use)) 250 mg PO QID [facility]; Protocol Last Admin: 05/28/18 09:25 Dose: 250 mg - Labs Labs: 05/28/18 06:26 05/28/18 06:26 Attending/Attestation - Attestation I have personally seen and examined this patient.: Yes I have fully participated in the care of the patient.: Yes I have reviewed all pertinent clinical information, including history, physical exam and plan: Yes Notes (Text): 05/28/18 14:16 I have seen and examined patient with GI fellow. No acute events overnight, he is seen resting in bed comfortably. His diarrhea has now resolved and he had a normal formed bowel movement today. He denies abdominal pain, nausea, vomiting, fever/chills. Tolerating PO diet without difficulty. HTN / DM CHF CAD Diarrhea, c-difficile colitis Sinusitis - Continue with lactose/gluten free diabetic diet as tolerated - Continue with PO vancomycin and IV flagyl - Follow up ID recommendations given presence of sinusitis - Will continue to monitor patient clinical course
[2018-05-28] MEDS: (Novolog) Insulin Aspart, Recombinant 100 u/ml 10 ml vial SC SCH ×7 (08:00→22:09)
[2018-05-28] MEDS: Vancomycin 125 MG/5 ML SOLN (ORAL/RECTAL) PO SCH ×4 (09:25→23:00)
[2018-05-28] MEDS: Lactobacillus Acidophilus 500 MU Cap PO SCH ×2 (09:28→17:54)
--- NOTE | 2018-05-28 11:31 | PN ---
DATE: 05/28/2018 SUBJECTIVE: This is a 72-year-old male with recent uncontrolled type 2 insulin requiring diabetes presenting here with diabetic ketoacidosis and dehydration and has had extremes of glycemic fluctuations with the variables in his oral intake and also severe underlying autonomic neuropathy and is now being followed closely for metabolic management. His glycemic levels overnight have improved and remain near optimal, ranging from 134 to 146 mg/dL this morning. His chemistries showed a BUN of 9, sodium 135, potassium 4.1, chloride 109, CO2 of 21, glucose 147 and creatinine 1.2. ASSESSMENT AND PLAN: So at this time because of the predilection for extremes of glycemic fluctuations, we will continue the low dose basal bolus insulin regimen . We will continue the NovoLog given as 4 units t.i.d. before meals as given. We will also maintain the Lantus given at 6 units at bedtime as basal insulin as ordered. We will obtain serial chemistries and supplement accordingly as needed. We will follow with you. Myrna Sheffield MD [facility] # [id number]
--- NOTE | 2018-05-28 12:26 | PN ---
DATE: <05/28/2018> SUBJECTIVE: The patient, Ferny Davidson, is stronger, talking much louder, is out of bed to chair. He agrees he has to go to subacute rehab. That is the recommendation from physical therapies. He is on aspirin, Crestor, Desyrel, dextrose, Flagyl, Flomax, glucagon, , Haldol, Lantus, micafungin, Motrin, Norvasc, NovoLog, Pepcid, Remeron, IV fluids, and vancomycin oral. He has got C. diff. He has got a sinus fungal infection. He is not noncompliant. PHYSICAL EXAMINATION: VITAL SIGNS: He has a 98.2 temperature, 76 pulse, 136/86 blood pressure, 18 respiratory rate, and 100% O2 sat on room air. HEENT: He has been most alert. He has been unit. He is out of bed to chair. He is still 05/26. HEART: Regular rate. LUNGS: Decreased breath sounds, but clear. ABDOMEN: Soft. EXTREMITIES: No edema. He is weak. LABORATORY DATA: He has a 5.3 white count, 9.1 hemoglobin, 20 hematocrit, 379 platelets, 135 sodium, potassium 4.1, BUN 14, creatinine 1.2, GFR is greater than 60, sugar is 147, calcium is 8.4. Total bili is 0.4, AST is 25, ALT is 29, alkaline phosphatase 230, total protein is 5.9. RECOMMENDATION: To go to subacute rehab. My plan is to get him to subacute rehab. Continue with the treatment there when it is okay with case management. We will continue with aggressive treatment and care. Zohaib Morgan DO [facility]
[2018-05-28] MEDS: Micafungin 100 MG in Sodium Chloride 0.9% 100 ML IV SCH (15:00)
--- NOTE | 2018-05-28 15:22 | RAD ---
Date of service: 05/25/2018 PROCEDURE: HISTORY: F/O from [facility] prior to admission COMPARISON: None TECHNIQUE: Four views FINDINGS: Lateral distal femoral plating with multiple horizontal transfixing screws are in place. 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 No residual fracture lines noted. A right hip replacement with acetabular and femoral components appearing well positioned grossly intact are noted. A right vascular catheter is partially visualized over the right hemipelvis. Extensive atherosclerotic vascular calcification within the thigh noted. Extensive lateral skin janine in place. Paucity of soft tissue/muscle atrophy inferred. IMPRESSION: Grossly intact hardware without failure or acute fracture noted. Other findings as above.
[2018-05-28] MEDS: (Lantus) Insulin Glargine, Recombinant SC SCH (22:08)
[2018-05-29] MEDS: metroNIDAZOLE IV 500 mg/100 ml 500 MG/100 ML BAG IVPB SCH ×3 (01:00→17:52)
[2018-05-29] MEDS ORDERED: (Novolog) Insulin Aspart, Recombinant 100 u/ml 10 ml vial SC STA (02:55)
[2018-05-29] MEDS: Sodium Chloride 0.9% 1,000 ML IV SCH ×4 (04:15→22:30)
[2018-05-29 06:17] LABS: HEMOGLOBIN 9.1 g/dL (12.0-18.0); MEAN CELL VOLUME 83.4 fL (80.0-94.0); MEAN CORPUSCULAR HEMOGLOBIN 27.2 pg (27.0-31.0); MEAN CORPUSCULAR HGB CONC 32.7 g/dL (33.0-37.0); MEAN PLATELET VOLUME 7.4 fL (7.2-11.7); RBC 3.32 Mil/uL (4.40-5.90); WHITE BLOOD COUNT 4.9 K/uL (4.8-10.8)
[2018-05-29 06:45] LABS: ALB/GLOB RATIO 0.8 (1.0-2.1); ALBUMIN 2.6 g/dL (3.5-5.0); ALT/SGPT 29 U/L (21-72); AST/SGOT 24 U/L (17-59); BLOOD UREA NITROGEN 14 mg/dL (9-20); CALCIUM 8.4 mg/dl (8.6-10.4); GFR NON-AFRICAN AMERICAN > 60
[2018-05-29] MEDS: (Novolog) Insulin Aspart, Recombinant 100 u/ml 10 ml vial SC SCH ×7 (08:00→22:33)
[2018-05-29] MEDS: Lactobacillus Acidophilus 500 MU Cap PO SCH ×2 (09:15→17:51)
[2018-05-29] MEDS: Vancomycin 125 MG/5 ML SOLN (ORAL/RECTAL) PO SCH ×4 (09:16→22:30)
--- NOTE | 2018-05-29 09:24 | PN ---
DATE: 05/29/2018 SUBJECTIVE: I saw Ferny in the intensive care unit, resting comfortably in bed. He is alert. He tells me he is feeling better. His bowels are starting to get a little bit better. He has a headache from time to time. A CAT scan of his head showed a frontal sinusitis or fungus. He is on vancomycin, IV fluids, Remeron, Pepcid, NovoLog, Norvasc, micafungin, Motrin, Lantus, Haldol, Flomax, metronidazole, trazodone, Crestor, Bacid, and aspirin. He also has tramadol for severe headache. PHYSICAL EXAMINATION: VITAL SIGNS: He has 97.2 temp, 71 pulse, 133/81 blood pressure, 17 respiratory rate, 100% O2 sat on room air. GENERAL: He is more alert, more bright, talking well little bit with me. HEENT: Head is atraumatic, normocephalic. Throat is moist. NECK: Supple. HEART: Regular rate. LUNGS: Decreased breath sounds but clear. ABDOMEN: Soft, nontender. Positive bowel sounds. EXTREMITIES: No edema. He has blood sugar as high as 407, they will give him coverage for that as per Endocrinology. He has 5.2 white count, 9.1 hemoglobin, 28 hematocrit, 379 platelets. He has 135 sodium, potassium 4.1, BUN 14, creatinine 1.2, GFR is 60, sugar is 147, calcium is 8.4. Total bili is 0.4, AST is 25, ALT is 29, alkaline phosphatase 230, total protein is 5.9. I do not feel one-to-one at this time. I am hoping to get him to [facility] at [facility]. He is being seen by Endocrinology, GI, Infectious disease. He has multiple issues, C. diff is improving, uncontrolled diabetes, hypertension, CHF, fungal sinusitis, chronic kidney disease. Hoping, we will get him back to [facility] as per case management. He needs to get out of bed to chair at [facility] and case management can arrange it. Zohaib Morgan DO [facility] # [id number] [facility]
--- NOTE | 2018-05-29 10:34 | CP.PCM.PN ---
<Humble Franks - Last Filed: 05/29/18 11:43> Subjective - Date & Time of Evaluation Date of Evaluation: 05/29/18 Time of Evaluation: 10:31 - Subjective Subjective: GI Fellow PGY4, progress note. Patient is doing well. 2 BMs yesterday. 2 BMs today: 1 soft, 1 solid. Denies fever, abdominal pain. 5pt ROS completed and negative except for above. Objective - Vital Signs/Intake and Output Vital Signs (last 24 hours): Temp Pulse Resp BP Pulse Ox 97.7 F 81 17 133/81 100 05/29/18 08:00 05/29/18 08:00 05/29/18 04:00 05/29/18 00:00 05/29/18 00:00 Intake and Output: 05/29/18 05/29/18 06:59 18:59 Intake Total 595 975 Output Total 450 550 Balance 145 425 - Medications Medications: Current Medications Amlodipine Besylate (Norvasc) 10 mg PO DAILY [facility] Last Admin: 05/29/18 09:15 Dose: 10 mg Aspirin (Aspirin Chewable) 81 mg PO DAILY [facility] Last Admin: 05/29/18 09:14 Dose: 81 mg Dextrose (Dextrose 50% Inj) 0 ml IV STAT PRN; Protocol PRN Reason: Hypoglycemia Protocol Dextrose (Glutose 15) 0 gm PO ONCE PRN; Protocol PRN Reason: Hypoglycemia Protocol Famotidine (Pepcid) 40 mg PO DAILY [facility] Last Admin: 05/29/18 09:15 Dose: 40 mg Glucagon (Glucagen Diagnostic Kit) 0 mg IM STAT PRN; Protocol PRN Reason: Hypoglycemia Protocol Haloperidol (Haldol) 1 mg PO BID [facility] Last Admin: 05/29/18 09:14 Dose: 1 mg Micafungin Sodium 100 mg/ (Sodium Chloride) 100 mls @ 100 mls/hr IV Q24H [facility]; Protocol Last Admin: 05/28/18 15:00 Dose: 100 mls/hr Sodium Chloride (Sodium Chloride 0.9%) 1,000 mls @ 125 mls/hr IV .Q8H [facility] Last Admin: 05/29/18 05:47 Dose: 125 mls/hr Dextrose (Dextrose 5% In Water 1000 Ml) 1,000 mls @ 0 mls/hr IV .Q0M PRN; Prot ocol PRN Reason: Hypoglycemia Protocol Metronidazole (Flagyl) 500 mg in 100 mls @ 100 mls/hr IVPB Q8H [facility]; Protocol Last Admin: 05/29/18 09:00 Dose: 100 mls/hr Ibuprofen (Motrin Tab) 400 mg PO BID PRN PRN Reason: Pain, Mild (1-3) Last Admin: 05/29/18 02:45 Dose: 400 mg Insulin Aspart (Novolog) 0 unit SC ACHS [facility] Last Admin: 05/29/18 08:00 Dose: Not Given Insulin Aspart (Novolog) 4 unit SC AC [facility] Last Admin: 05/29/18 08:30 Dose: 4 units Insulin Glargine (Lantus) 6 unit SC HS [facility] Last Admin: 05/28/18 22:08 Dose: 6 units Lactobacillus Acidophilus (Bacid Acidophilus) 1 cap PO BID [facility] Last Admin: 05/29/18 09:15 Dose: 1 cap Mirtazapine (Remeron) 15 mg PO [facility] Last Admin: 05/28/18 22:08 Dose: 15 mg Rosuvastatin Calcium (Crestor) 5 mg PO [facility] Last Admin: 05/28/18 22:08 Dose: 5 mg Tamsulosin HCl (Flomax) 0.4 mg PO DAILY [facility] Last Admin: 05/29/18 09:15 Dose: 0.4 mg Tramadol HCl (Ultram) 50 mg PO TID PRN PRN Reason: Pain, severe (8-10) Last Admin: 05/29/18 06:12 Dose: 50 mg Trazodone HCl (Desyrel) 50 mg PO [facility] Last Admin: 05/28/18 22:08 Dose: 50 mg Vancomycin HCl (Vancocin (Oral Or Rectal Use)) 250 mg PO QID [facility]; Protocol Last Admin: 05/29/18 09:16 Dose: 250 mg - Labs Labs: 05/29/18 06:06 05/29/18 06:06 - Constitutional Appears: Well, Non-toxic - Head Exam Head Exam: ATRAUMATIC, NORMAL INSPECTION - Respiratory Exam Respiratory Exam: Clear to Ausculation Bilateral, NORMAL BREATHING PATTERN - Cardiovascular Exam Cardiovascular Exam: REGULAR RHYTHM, +S1, +S2 - GI/Abdominal Exam GI & Abdominal Exam: Soft, Normal Bowel Sounds. absent: Tenderness - Extremities Exam Extremities Exam: Normal Inspection - Neurological Exam Neurological Exam: Alert, Awake, Oriented x3 - Psychiatric Exam Psychiatric exam: Normal Affect, Normal Mood - Skin Skin Exam: Dry, Normal Color Assessment and Plan - Assessment and Plan (Free Text) Assessment: #CDAD (C. diff) - improving #Possible lactose intolerance #H/o fundic ulcer and esophagitis #Tubular adenomas (03/12) #T2DM, uncontrolled #HTN, CHF, CKD #Sinusitis PLAN: -Previously on PO vanco without significant improvement. Infection is currently non-severe and improving. -Added IV flagyl to PO vanco 05/27/17 with good results. Continue current course until 06/06/17 -Remove dairy and gluten from diet to avoid confusion of infectious vs dietary component of diarrhea -Add probiotics -No endoscopic procedure planned at this time -Continue PPI -Needs outpatient colonoscopy in 1-3 years for adenomas. -Signing off, please consult as needed. Case discussed with Dr. Rdz, see attestation. <Rubén Rdz - Last Filed: 05/29/18 13:09> Objective - Vital Signs/Intake and Output Vital Signs (last 24 hours): Temp Pulse Resp BP Pulse Ox 97.7 F 81 17 133/81 100 05/29/18 08:00 05/29/18 08:00 05/29/18 04:00 05/29/18 00:00 05/29/18 00:00 Intake and Output: 05/29/18 05/29/18 06:59 18:59 Intake Total 595 975 Output Total 450 550 Balance 145 425 - Medications Medications: Current Medications Amlodipine Besylate (Norvasc) 10 mg PO DAILY [facility] Last Admin: 05/29/18 09:15 Dose: 10 mg Aspirin (Aspirin Chewable) 81 mg PO DAILY [facility] Last Admin: 05/29/18 09:14 Dose: 81 mg Dextrose (Dextrose 50% Inj) 0 ml IV STAT PRN; Protocol PRN Reason: Hypoglycemia Protocol Dextrose (Glutose 15) 0 gm PO ONCE PRN; Protocol PRN Reason: Hypoglycemia Protocol Famotidine (Pepcid) 40 mg PO DAILY [facility] Last Admin: 05/29/18 09:15 Dose: 40 mg Glucagon (Glucagen Diagnostic Kit) 0 mg IM STAT PRN; Protocol PRN Reason: Hypoglycemia Protocol Haloperidol (Haldol) 1 mg PO BID [facility] Last Admin: 05/29/18 09:14 Dose: 1 mg Micafungin Sodium 100 mg/ (Sodium Chloride) 100 mls @ 100 mls/hr IV Q24H [facility]; Protocol Last Admin: 05/28/18 15:00 Dose: 100 mls/hr Sodium Chloride (Sodium Chloride 0.9%) 1,000 mls @ 125 mls/hr IV .Q8H [facility] Last Admin: 05/29/18 05:47 Dose: 125 mls/hr Dextrose (Dextrose 5% In Water 1000 Ml) 1,000 mls @ 0 mls/hr IV .Q0M PRN; Protocol PRN Reason: Hypoglycemia Protocol Metronidazole (Flagyl) 500 mg in 100 mls @ 100 mls/hr IVPB Q8H [facility]; Protocol Last Admin: 05/29/18 09:00 Dose: 100 mls/hr Ibuprofen (Motrin Tab) 400 mg PO BID PRN PRN Reason: Pain, Mild (1-3) Last Admin: 05/29/18 02:45 Dose: 400 mg Insulin Aspart (Novolog) 0 unit SC ACHS [facility] Last Admin: 05/29/18 12:23 Dose: Not Given Insulin Aspart (Novolog) 4 unit SC AC [facility] Last Admin: 05/29/18 12:18 Dose: 4 units Insulin Glargine (Lantus) 6 unit SC HS [facility] Last Admin: 05/28/18 22:08 Dose: 6 units Lactobacillus Acidophilus (Bacid Acidophilus) 1 cap PO BID [facility] Last Admin: 05/29/18 09:15 Dose: 1 cap Mirtazapine (Remeron) 15 mg PO [facility] Last Admin: 05/28/18 22:08 Dose: 15 mg Rosuvastatin Calcium (Crestor) 5 mg PO [facility] Last Admin: 05/28/18 22:08 Dose: 5 mg Tamsulosin HCl (Flomax) 0.4 mg PO DAILY [facility] Last Admin: 05/29/18 09:15 Dose: 0.4 mg Tramadol HCl (Ultram) 50 mg PO TID PRN PRN Reason: Pain, severe (8-10) Last Admin: 05/29/18 06:12 Dose: 50 mg Trazodone HCl (Desyrel) 50 mg PO [facility] Last Admin: 05/28/18 22:08 Dose: 50 mg Vancomycin HCl (Vancocin (Oral Or Rectal Use)) 250 mg PO QID [facility]; Protocol Last Admin: 05/29/18 09:16 Dose: 250 mg - Labs Labs: 05/29/18 06:06 05/29/18 06:06 Attending/Attestation - Attestation I have personally seen and examined this patient.: Yes I have fully participated in the care of the patient.: Yes I have reviewed all pertinent clinical information, including history, physical exam and plan: Yes Notes (Text): 05/29/18 13:06 I have seen and examined patient with GI fellow. No acute events overnight, he is seen sitting in chair next to bed, appears quite comfortable. He denies ab dominal pain, nausea, vomiting, fever/chills. His diarrhea has significantly improved, he had 2 semi-formed bowel movements yesterday and is tolerating diet without difficulty. CAD CHF DM CKD Diarrhea, c-difficile colitis - Lactose/gluten free diet as tolerated - Continue with antibiotic therapy to complete 14 day course - Suggest ongoing probiotic therapy - Follow up ID recommendations - Maintain strict glucose control - No further planned GI interventions at this time, will sign off case. Please reconsult as necessary, thank you.
--- NOTE | 2018-05-29 17:38 | CP.PCM.PN ---
Subjective - Date & Time of Evaluation Date of Evaluation: 05/29/18 Time of Evaluation: 07:00 - Subjective Subjective: REMAINS AFEB IN NAD Objective - Vital Signs/Intake and Output Vital Signs (last 24 hours): Temp Pulse Resp BP Pulse Ox 97.6 F 77 20 144/80 100 05/29/18 15:03 05/29/18 15:03 05/29/18 15:03 05/29/18 15:03 05/29/18 15:03 Intake and Output: 05/29/18 05/29/18 06:59 18:59 Intake Total 595 975 Output Total 450 550 Balance 145 425 - Medications Medications: Current Medications Amlodipine Besylate (Norvasc) 10 mg PO DAILY [facility] Last Admin: 05/29/18 09:15 Dose: 10 mg Aspirin (Aspirin Chewable) 81 mg PO DAILY [facility] Last Admin: 05/29/18 09:14 Dose: 81 mg Dextrose (Dextrose 50% Inj) 0 ml IV STAT PRN; Protocol PRN Reason: Hypoglycemia Protocol Dextrose (Glutose 15) 0 gm PO ONCE PRN; Protocol PRN Reason: Hypoglycemia Protocol Famotidine (Pepcid) 40 mg PO DAILY [facility] Last Admin: 05/29/18 09:15 Dose: 40 mg Glucagon (Glucagen Diagnostic Kit) 0 mg IM STAT PRN; Protocol PRN Reason: Hypoglycemia Protocol Haloperidol (Haldol) 1 mg PO BID [facility] Last Admin: 05/29/18 09:14 Dose: 1 mg Micafungin Sodium 100 mg/ (Sodium Chloride) 100 mls @ 100 mls/hr IV Q24H [facility]; Protocol Last Admin: 05/28/18 15:00 Dose: 100 mls/hr Sodium Chloride (Sodium Chloride 0.9%) 1,000 mls @ 125 mls/hr IV .Q8H [facility] Last Admin: 05/29/18 12:00 Dose: Not Given Dextrose (Dextrose 5% In Water 1000 Ml) 1,000 mls @ 0 mls/hr IV .Q0M PRN; Protocol PRN Reason: Hypoglycemia Protocol Metronidazole (Flagyl) 500 mg in 100 mls @ 100 mls/hr IVPB Q8H [facility]; Protocol Last Admin: 05/29/18 09:00 Dose: 100 mls/hr Ibuprofen (Motrin Tab) 400 mg PO BID PRN PRN Reason: Pain, Mild (1-3) Last Admin: 05/29/18 02:45 Dose: 400 mg Insulin Aspart (Novolog) 0 unit SC ACHS [facility] Last Admin: 05/29/18 16:49 Dose: Not Given Insulin Aspart (Novolog) 4 unit SC AC [facility] Last Admin: 05/29/18 12:18 Dose: 4 units Insulin Glargine (Lantus) 6 unit SC HS [facility] Last Admin: 05/28/18 22:08 Dose: 6 units Lactobacillus Acidophilus (Bacid Acidophilus) 1 cap PO BID [facility] Last Admin: 05/29/18 09:15 Dose: 1 cap Mirtazapine (Remeron) 15 mg PO HS [facility] Last Admin: 05/28/18 22:08 Dose: 15 mg Rosuvastatin Calcium (Crestor) 5 mg PO HS [facility] Last Admin: 05/28/18 22:08 Dose: 5 mg Tamsulosin HCl (Flomax) 0.4 mg PO DAILY [facility] Last Admin: 05/29/18 09:15 Dose: 0.4 mg Tramadol HCl (Ultram) 50 mg PO TID PRN PRN Reason: Pain, severe (8-10) Last Admin: 05/29/18 06:12 Dose: 50 mg Trazodone HCl (Desyrel) 50 mg PO [facility] Last Admin: 05/28/18 22:08 Dose: 50 mg Vancomycin HCl (Vancocin (Oral Or Rectal Use)) 250 mg PO QID [facility]; Protocol Last Admin: 05/29/18 14:28 Dose: 250 mg - Labs Labs: 05/29/18 06:06 05/29/18 06:06 - Constitutional Appears: Non-toxic, Chronically Ill - Head Exam Head Exam: NORMOCEPHALIC - Eye Exam Eye Exam: absent: Scleral icterus - ENT Exam ENT Exam: Mucous Membranes Dry - Neck Exam Neck Exam: absent: Lymphadenopathy - Respiratory Exam Respiratory Exam: Decreased Breath Sounds - Cardiovascular Exam Cardiovascular Exam: REGULAR RHYTHM - GI/Abdominal Exam GI & Abdominal Exam: Distended - Rectal Exam Rectal Exam: Deferred - Exam Exam: NORMAL INSPECTION - Extremities Exam Extremities Exam: absent: Pedal Edema - Back Exam Back Exam: absent: CVA tenderness (L), CVA tenderness (R) - Neurological Exam Neurological Exam: Alert, Awake, Oriented x3 Assessment and Plan (1) DKA (diabetic ketoacidoses) Status: Acute (2) Headache Status: Acute - Assessment and Plan (Free Text) Assessment: AWAIT ENT EVAL CONT ANTIFUNGAL RX
[2018-05-29] MEDS: Micafungin 100 MG in Sodium Chloride 0.9% 100 ML IV SCH (17:51)
--- NOTE | 2018-05-29 17:57 | PN ---
DATE: 05/29/2018 ENDOCRINOLOGY FOLLOWUP NOTE LOCATION: ICU, Room 6. SUBJECTIVE: This is a 72-year-old male with recent uncontrolled type 2 insulin-requiring diabetes, now being followed closely for metabolic management. Once again the nursing staff held his evening or dinnertime NovoLog with a glucose level of 94, which is actually normal and so, developed hyperglycemic accelerations overnight as expected. The glucose values at bedtime was 330 mg/dL with a glucose level of 407 at 02:00 a.m. this morning. LABORATORY DATA: The chemistries showed a BUN of 14, sodium 136, potassium 3.7, chloride 110, CO2 of 19, glucose 120, and creatinine 1.1. Supplemental glucose was 67 mg/dL at 07:00 a.m. with a repeat level of 106 mg/dL. ASSESSMENT AND PLAN: This is a 72-year-old male with uncontrolled and decompensated type 2 insulin-requiring diabetes with extremes of glycemic fluctuations from symptomatic hypoglycemia to marked hyperglycemic accelerations with underlying autonomic neuropathy but also with a big contribution by the nursing staff for withholding the insulin when the glucose levels are normal. Giving coverage of short acting or rapid acting insulin at bedtime because of hyperglycemic accelerations from withholding the insulin will cause a ripple horrendous biochemical effect of passenger screener either hyperglycemic accelerations or symptomatic hypoglycemia by breakfast time. This can be avoided with nursing staff having to give the insulin even if the blood sugars are normal which is really our goal anyhow to achieve near optimal metabolic control of his glycemic values. We will obtain serial chemistries and supplement accordingly as needed. We will follow with you. In the meantime, we will continue the same usual low dose basal and bolus insulin regimen with NovoLog given as 4 units subcutaneous three times a day before meals as ordered. We will also continue Lantus given as 6 units subcutaneous at bedtime daily as given. These are very small minuscule doses which should be really followed by the nursing staff if we are to achieve near optimal metabolic control. Myrna Sheffield MD
[2018-05-29] MEDS ORDERED: (Lantus) Insulin Glargine, Recombinant SC SCH (22:02)
[2018-05-30] MEDS: metroNIDAZOLE IV 500 mg/100 ml 500 MG/100 ML BAG IVPB SCH ×3 (01:55→18:33)
[2018-05-30] MEDS: Sodium Chloride 0.9% 1,000 ML IV SCH (04:00)
[2018-05-30] MEDS: (Novolog) Insulin Aspart, Recombinant 100 u/ml 10 ml vial SC SCH ×7 (07:58→21:57)
[2018-05-30] MEDS: Lactobacillus Acidophilus 500 MU Cap PO SCH ×2 (10:13→18:31)
[2018-05-30] MEDS: Vancomycin 125 MG/5 ML SOLN (ORAL/RECTAL) PO SCH ×3 (10:13→18:33)
--- NOTE | 2018-05-30 12:45 | PN ---
DATE: 05/30/2018 ENDOCRINOLOGY FOLLOWUP NOTE LOCATION: In room 667. SUBJECTIVE: This is a 72-year-old male with recent uncontrolled type 2 insulin-requiring diabetes, who continues to have extreme sub glycemic fluctuations with the variability of his oral intake and also more importantly with the withholding of his insulin regimen intermittently by the nursing staff when the glucose levels are near optimal and normal. LABORATORY DATA: His chemistries showed a BUN of 14, sodium 136, potassium 3.7, chloride 110, CO2 of 19, glucose 120, and creatinine 1.1. His glucose levels overnight have ranged from 84 to 93 and 180 and 297 mg/dL. ASSESSMENT AND PLAN: So at this time, we will continue the same basal and bolus insulin regimen, as originally given with Lantus at 4 units subcutaneously at bedtime daily as ordered. We will continue also the very low dose Novolog given as 4 units three times daily before meals as ordered. We will obtain serial chemistries and supplement accordingly as needed. We will also discontinue the intravenous hydration as given with normal saline infusion. We will follow. Myrna Sheffield MD
--- NOTE | 2018-05-30 12:53 | PN ---
DATE: 05/30/2018 SUBJECTIVE: He is resting comfortably now in room 667. He is alert, comfortable, slept well. Bowel movements are fairly back to normal. He has some aches and pains here and there, but for the most part, he has improved. He is very weak, and Physical Therapy recommends subacute rehab. Hopefully, we could get him back to subacute rehab at [facility] on Friday. PHYSICAL EXAMINATION: VITAL SIGNS: He has 98.2 temp, 96 pulse, 158/87 blood pressure, 20 respiratory rate, and 99% O2 sat on room air. HEENT: Head is atraumatic, normocephalic. HEART: Regular rate. LUNGS: Decreased breath sounds, but clear to auscultation. ABDOMEN: Soft. EXTREMITIES: No edema. We have to get him out of bed to chair. Check his labs. At this time, he refuses this morning labs. Yesterday, his labs were pretty good. His blood sugar was 180. out of bed to chair. We will lab for tomorrow and out of bed to chair. MEDICATIONS: He is currently on aspirin, Bacid, Crestor, Desyrel, dextrose, Flagyl IV, Flomax, Haldol, Lantus, micafungin, Motrin, Norvasc, NovoLog, Pepcid, Remeron, IV fluids, Ultram, and vancomycin oral. He has C. diff, debility, fungal sinus infection. Zohaib Morgan DO MTDD
[2018-05-30] MEDS: Micafungin 100 MG in Sodium Chloride 0.9% 100 ML IV SCH (17:00)
[2018-05-30] MEDS ORDERED: (Lantus) Insulin Glargine, Recombinant SC SCH (22:45)
[2018-05-31] MEDS: metroNIDAZOLE IV 500 mg/100 ml 500 MG/100 ML BAG IVPB SCH ×3 (01:00→17:15)
[2018-05-31] MEDS: (Novolog) Insulin Aspart, Recombinant 100 u/ml 10 ml vial SC SCH ×7 (07:12→21:59)
--- NOTE | 2018-05-31 09:44 | PN ---
DATE: 05/31/2018 SUBJECTIVE: He is trying to feed himself in bed. He tells me because his cataracts stopped him to see, but his bowels are forming. He is still on medicines for C. diff. I am going to recheck a C. diff. labs. Also, he had 7 beats of V-tach last night, asymptomatic. I will call in Cardiology to kenny. PHYSICAL EXAMINATION: GENERAL: He is alert and talking, looks calm. He is weak. He needs physical therapy. VITAL SIGNS: He has 98.4 temperature, 69 pulse, 164/84 blood pressure, 20 respiratory rate, and 99% O2 sat on room air. HEENT: Head is atraumatic, normocephalic. HEART: Regular rate. LUNGS: Decreased breath sounds, but clear. ABDOMEN: Soft. EXTREMITIES: No edema. LABORATORY DATA: He has a 4.9 white count, 9.1 hemoglobin, 381 platelets. Last blood sugar was 215. He had a couple that were greater than 500 as per Endocrinology, we are adjusting his insulin. MEDICATIONS: He is on aspirin, Bacid, Crestor, Desyrel, dextrose as needed, Flagyl, Flomax, Haldol, Lantus, Motrin, micafungin, Norvasc, NovoLog, Pepcid, Remeron, Ultram, and vancomycin p.o. ASSESSMENT AND PLAN: I am trying to get him to [facility]acute [facility] hopefully tomorrow. I called in Cardiology for 7 beats of ventricular tachycardia. He is still on vancomycin p.o. for Clostridium difficile. He is also on micafungin intravenous for sinus fungal infection. He needs to get out of bed to chair and physical therapy and hopefully get him to Subacute Acute Rehab [facility] tomorrow. Zohaib Morgan DO
[2018-05-31] MEDS: Vancomycin 125 MG/5 ML SOLN (ORAL/RECTAL) PO SCH ×4 (10:46→23:02)
[2018-05-31] MEDS: Lactobacillus Acidophilus 500 MU Cap PO SCH ×2 (10:46→18:15)
--- NOTE | 2018-05-31 13:27 | CP.PCM.CON ---
History of Present Illness - History of Present Illness History of Present Illness: 72 yo male with h/o HTN, T2D, HLD, chronic Cdiff; admitted to with recurrent diarrhea likely secondary to Cdiff colitis. This cardiology consultation was called for non-sustained VT on telemetry last night. Patient denies chest pain, palpitations, dizziness, dyspnea, syncope, visual changes, nausea, vomiting, abdominal pain or diarrhea. No labs available for a few days, as the patient has been refusing blood draws. No exertional symptoms at baseline. Review of Systems - Review of Systems Review of Systems: all others are negative except HPI Past Patient History - Infectious Disease Hx of Infectious Diseases: None - Tetanus Immunizations Tetanus Immunization: Unknown - Past Medical History & Family History Past Medical History?: Yes - Past Social History Smoking Status: Former Smoker - CARDIAC Hx Congestive Heart Failure: Yes Hx Hypercholesterolemia: Yes Hx Hypertension: Yes - PULMONARY Hx Pneumonia: Yes - NEUROLOGICAL Hx Dementia: Yes Hx Seizures: Yes (pt denies) - HEENT Hx HEENT Problems: Yes (LEFT EYE BLIND) Hx Cataracts: Yes (BILATERAL) Other/Comment: rt eye cataract sx - RENAL Hx Chronic Kidney Disease: Yes - ENDOCRINE/METABOLIC Hx Diabetes Mellitus Type 2: Yes - HEMATOLOGICAL/ONCOLOGICAL Hx Anemia: Yes - INTEGUMENTARY Hx Dermatological Problems: Yes Other/Comment: 03-03-18 HEALING SACRAL PRESSURE ULCER.SCARRED AREA MORE TO LEFT. - MUSCULOSKELETAL/RHEUMATOLOGICAL Hx Arthritis: Yes - GASTROINTESTINAL Hx Pancreatitis: Yes - GENITOURINARY/GYNECOLOGICAL Hx Genitourinary Disorders: Yes Hx Prostate Problems: Yes (R TURP for BPH) - PSYCHIATRIC Hx Substance Use: No - SURGICAL HISTORY Hx Surgeries: Yes Hx Cataract Extraction: Yes Hx Eye Surgery: Yes Hx Herniorrhaphy: Yes (Inguinal) Hx Vascular Access Device: Yes Other/Comment: hemorrhoidectomy - ANESTHESIA Hx Anesthesia: Yes Hx Anesthesia Reactions: No Hx Malignant Hyperthermia: No Meds Allergies/Adverse Reactions: Allergies Allergy/AdvReac Type Severity Reaction Status Date / Time No Known Allergies Allergy Verified 05/23/18 12:17 - Medications Medications: Current Medications Amlodipine Besylate (Norvasc) 10 mg PO DAILY [facility] Last Admin: 05/31/18 10:46 Dose: 10 mg Aspirin (Aspirin Chewable) 81 mg PO DAILY [facility] Last Admin: 05/31/18 10:46 Dose: 81 mg Dextrose (Dextrose 50% Inj) 0 ml IV STAT PRN; Protocol PRN Reason: Hypoglycemia Protocol Dextrose (Glutose 15) 0 gm PO ONCE PRN; Protocol PRN Reason: Hypoglycemia Protocol Famotidine (Pepcid) 40 mg PO DAILY [facility] Last Admin: 05/31/18 10:46 Dose: 40 mg Glucagon (Glucagen Diagnostic Kit) 0 mg IM STAT PRN; Protocol PRN Reason: Hypoglycemia Protocol Haloperidol (Haldol) 1 mg PO BID [facility] Last Admin: 05/31/18 10:46 Dose: 1 mg Micafungin Sodium 100 mg/ (Sodium Chloride) 100 mls @ 100 mls/hr IV Q24H [facility]; Protocol Last Admin: 05/30/18 17:00 Dose: 100 mls/hr Metronidazole (Flagyl) 500 mg in 100 mls @ 100 mls/hr IVPB Q8H [facility]; Protocol Stop: 06/06/18 09:00 Last Admin: 05/31/18 08:07 Dose: 100 mls/hr Ibuprofen (Motrin Tab) 400 mg PO BID PRN PRN Reason: Pain, Mild (1-3) Last Admin: 05/29/18 02:45 Dose: 400 mg Insulin Aspart (Novolog) 0 unit SC ACHS [facility] Last Admin: 05/31/18 12:38 Dose: 4 u Insulin Aspart (Novolog) 4 unit SC AC [facility] Last Admin: 05/31/18 12:38 Dose: 4 units Insulin Glargine (Lantus) 8 unit SC HS [facility] Last Admin: 05/30/18 22:53 Dose: 8 units Lactobacillus Acidophilus (Bacid Acidophilus) 1 cap PO BID [facility] Last Admin: 05/31/18 10:46 Dose: 1 cap Metoprolol Tartrate (Lopressor) 25 mg PO BID [facility] Mirtazapine (Remeron) 15 mg PO HS [facility] Last Admin: 05/30/18 21:57 Dose: 15 mg Rosuvastatin Calcium (Crestor) 5 mg PO HS [facility] Last Admin: 05/30/18 21:56 Dose: 5 mg Tamsulosin HCl (Flomax) 0.4 mg PO DAILY [facility] Last Admin: 05/31/18 10:46 Dose: 0.4 mg Tramadol HCl (Ultram) 50 mg PO TID PRN PRN Reason: Pain, severe (8-10) Last Admin: 05/31/18 10:46 Dose: 50 mg Trazodone HCl (Desyrel) 50 mg PO HS [facility] Last Admin: 05/30/18 21:57 Dose: 50 mg Vancomycin HCl (Vancocin (Oral Or Rectal Use)) 250 mg PO QID [facility]; Protocol Last Admin: 05/31/18 10:46 Dose: 250 mg Physical Exam - Constitutional Appears: Well, Unkempt - Head Exam Head Exam: ATRAUMATIC, NORMOCEPHALIC - Eye Exam Eye Exam: EOMI Pupil Exam: PERRL - Neck Exam Neck exam: Positive for: Full Rom - Respiratory Exam Respiratory Exam: Clear to Auscultation Bilateral, NORMAL BREATHING PATTERN - Cardiovascular Exam Cardiovascular Exam: REGULAR RHYTHM, RRR, +S1, +S2. absent: JVD - GI/Abdominal Exam GI & Abdominal Exam: Soft. absent: Tenderness - Neurological Exam Neurological exam: Alert, CN II-XII Intact, Oriented x3 - Psychiatric Exam Psychiatric exam: Normal Affect, Normal Mood - Skin Skin Exam: Normal Color, Warm Results - Vital Signs Recent Vital Signs: Last Vital Signs Temp 98.5 F 05/31/18 07:00 Pulse 65 05/31/18 07:22 Resp 20 05/31/18 07:00 BP 179/89 H 05/31/18 07:00 Pulse Ox 96 05/31/18 07:00 - Labs Result Diagrams: 05/29/18 06:06 05/29/18 06:06 Labs: Laboratory Results - last 24 hr 05/30/18 05/30/18 05/31/18 16:30 21:09 01:51 POC Glucose (mg/dL) > 500 H* > 500 H* 274 H 05/31/18 05/31/18 06:52 11:09 POC Glucose (mg/dL) 215 H 374 H - EKG Data EKG comments: Admission EKG my review: NSR, no acute ST-T changes Assessment & Plan (1) Ventricular tachycardia Assessment and Plan: Asymptomatic non-sustained VT Hemodynamically stable Patient categorically declines any further work-up, specifically lab work for electrolytes and echocardiogram. Will start metoprolol tartrate 25 mg twice dialy No further cardiac work-up at this time Status: Acute (2) Essential (primary) hypertension Assessment and Plan: Uncontrolled HTN Starting metoprolol Cont with amlodipine Status: Acute (3) Mixed hyperlipidemia Assessment and Plan: COnt with statin Status: Acute
--- NOTE | 2018-05-31 14:56 | CP.PCM.PN ---
Subjective - Date & Time of Evaluation Date of Evaluation: 05/31/18 Time of Evaluation: 09:00 - Subjective Subjective: awake alert afebrile c/o headache and neck pain no fever no diarrhea Objective - Vital Signs/Intake and Output Vital Signs (last 24 hours): Temp Pulse Resp BP Pulse Ox 98.5 F 65 20 179/89 H 96 05/31/18 07:00 05/31/18 07:22 05/31/18 07:00 05/31/18 07:00 05/31/18 07:00 Intake and Output: 05/31/18 05/31/18 06:59 18:59 Output Total 1500 Balance -1500 - Medications Medications: Current Medications Amlodipine Besylate (Norvasc) 10 mg PO DAILY [facility] Last Admin: 05/31/18 10:46 Dose: 10 mg Aspirin (Aspirin Chewable) 81 mg PO DAILY [facility] Last Admin: 05/31/18 10:46 Dose: 81 mg Dextrose (Dextrose 50% Inj) 0 ml IV STAT PRN; Protocol PRN Reason: Hypoglycemia Protocol Dextrose (Glutose 15) 0 gm PO ONCE PRN; Protocol PRN Reason: Hypoglycemia Protocol Famotidine (Pepcid) 40 mg PO DAILY [facility] Last Admin: 05/31/18 10:46 Dose: 40 mg Glucagon (Glucagen Diagnostic Kit) 0 mg IM STAT PRN; Protocol PRN Reason: Hypoglycemia Protocol Haloperidol (Haldol) 1 mg PO BID [facility] Last Admin: 05/31/18 10:46 Dose: 1 mg Micafungin Sodium 100 mg/ (Sodium Chloride) 100 mls @ 100 mls/hr IV Q24H [facility]; Protocol Last Admin: 05/30/18 17:00 Dose: 100 mls/hr Metronidazole (Flagyl) 500 mg in 100 mls @ 100 mls/hr IVPB Q8H [facility]; Protocol Stop: 06/06/18 09:00 Last Admin: 05/31/18 08:07 Dose: 100 mls/hr Ibuprofen (Motrin Tab) 400 mg PO BID PRN PRN Reason: Pain, Mild (1-3) Last Admin: 05/29/18 02:45 Dose: 400 mg Insulin Aspart (Novolog) 0 unit SC ACHS [facility] Last Admin: 05/31/18 12:38 Dose: 4 u Insulin Aspart (Novolog) 6 unit SC AC [facility] Insulin Glargine (Lantus) 12 unit SC [facility] Lactobacillus Acidophilus (Bacid Acidophilus) 1 cap PO BID [facility] Last Admin: 05/31/18 10:46 Dose: 1 cap Metoprolol Tartrate (Lopressor) 25 mg PO BID [facility] Mirtazapine (Remeron) 15 mg PO [facility] Last Admin: 05/30/18 21:57 Dose: 15 mg Rosuvastatin Calcium (Crestor) 5 mg PO [facility] Last Admin: 05/30/18 21:56 Dose: 5 mg Tamsulosin HCl (Flomax) 0.4 mg PO DAILY [facility] Last Admin: 05/31/18 10:46 Dose: 0.4 mg Tramadol HCl (Ultram) 50 mg PO TID PRN PRN Reason: Pain, severe (8-10) Last Admin: 05/31/18 10:46 Dose: 50 mg Trazodone HCl (Desyrel) 50 mg PO [facility] Last Admin: 05/30/18 21:57 Dose: 50 mg Vancomycin HCl (Vancocin (Oral Or Rectal Use)) 250 mg PO QID [facility]; Protocol Last Admin: 05/31/18 14:47 Dose: 250 mg - Labs Labs: 05/29/18 06:06 05/29/18 06:06 - Constitutional Appears: Non-toxic, Chronically Ill - Head Exam Head Exam: NORMOCEPHALIC - Eye Exam Eye Exam: absent: Scleral icterus - ENT Exam ENT Exam: Mucous Membranes Dry - Neck Exam Neck Exam: absent: Lymphadenopathy - Respiratory Exam Respiratory Exam: Decreased Breath Sounds - Cardiovascular Exam Cardiovascular Exam: REGULAR RHYTHM - GI/Abdominal Exam GI & Abdominal Exam: Distended, Soft. absent: Tenderness - Rectal Exam Rectal Exam: Deferred - Exam Exam: NORMAL INSPECTION - Extremities Exam Extremities Exam: absent: Pedal Edema - Back Exam Back Exam: absent: CVA tenderness (L), CVA tenderness (R) - Neurological Exam Neurological Exam: Alert, Awake, CN II-XII Intact, Oriented x3 Neuro motor strength exam: Left Upper Extremity: 4, Right Upper Extremity: 4, Left Lower Extremity: 4, Right Lower Extremity: 4 - Psychiatric Exam Psychiatric exam: Depressed - Skin Skin Exam: Dry, Intact Assessment and Plan (1) DKA (diabetic ketoacidoses) Status: Acute (2) Headache Status: Acute - Assessment and Plan (Free Text) Assessment: IV and PO antibiotics in progress colitis improving ENT on board- procalcitonin decreasing
[2018-05-31] MEDS: Micafungin 100 MG in Sodium Chloride 0.9% 100 ML IV SCH (16:12)
--- NOTE | 2018-05-31 19:38 | PN ---
DATE: 05/31/2018 ENDOCRINOLOGY FOLLOWUP NOTE LOCATION: Room 667. SUBJECTIVE: This is a 72-year-old male with recent uncontrolled type 2 insulin-requiring diabetes who continues to have extremes of glycemic fluctuations despite improved oral intake as noted by the nursing staff. His glycemic levels overnight have ranged from 215 to 274 and 374 mg/dL. It was over 500 at bedtime last night. LABORATORY DATA: His chemistries showed a BUN of 14, sodium 135, potassium 4.1, chloride 109, CO2 of 21, glucose 147, and creatinine 1.2. ASSESSMENT AND PLAN: The nursing staff last night actually saw the patient's bring in a lot of chocolates which he of course ate at bedtime as noted. We have reinforced with the family members the imperative need to avoid concentrated sweets, especially chocolates to be brought in from home to the hospital, which as you know, will highly contribute to the marked hyperglycemic accelerations as noted overnight. We will modify once again his basal and bolus insulin regimen to allow for dose equilibration and increase the Novolog to 6 units three times daily before meals to start at dinner time today as ordered. We will also increase the basal insulin with Lantus to be given as 12 units subcutaneous at bedtime daily as given. We will titrate incrementally as indicated to optimize metabolic control. We will follow. Myrna Sheffield MD
[2018-05-31] MEDS: (Lantus) Insulin Glargine, Recombinant SC SCH (23:01)
[2018-06-01] MEDS: metroNIDAZOLE IV 500 mg/100 ml 500 MG/100 ML BAG IVPB SCH ×3 (00:09→18:00)
[2018-06-01] MEDS: (Novolog) Insulin Aspart, Recombinant 100 u/ml 10 ml vial SC SCH ×7 (07:10→21:48)
[2018-06-01] MEDS: Lactobacillus Acidophilus 500 MU Cap PO SCH ×2 (10:07→17:46)
[2018-06-01] MEDS: Vancomycin 125 MG/5 ML SOLN (ORAL/RECTAL) PO SCH ×4 (10:08→22:36)
--- NOTE | 2018-06-01 17:36 | PN ---
DATE: 06/01/2018 LOCATION: Room 667. SUBJECTIVE: This is a 72-year-old male with recent uncontrolled type 2 insulin-requiring diabetes now being followed closely for metabolic management. His glycemic levels overnight are fluctuating and have ranged from 197 to 229 and 247 mg/dL. LABORATORY DATA: His chemistries showed a BUN of 14, sodium 136, potassium 3.7, chloride 110, CO2 19, glucose 120 and creatinine 1.1. ASSESSMENT AND PLAN: So at this time, we will continue the same basal and bolus insulin regimen to allow for dose equilibration as the patient has extremely hyper labile glycemic profile with underlying autonomic neuropathy coupled with a variability of his oral intake. We will continue the same basal insulin given as Lantus at 12 units subcutaneous at bedtime daily as given. We will continue the Novolog given as 6 units three times daily before meals as ordered. We will titrate incrementally as indicated to optimize metabolic control. We will follow. Myrna Sheffield MD
[2018-06-01] MEDS: Micafungin 100 MG in Sodium Chloride 0.9% 100 ML IV SCH (17:42)
[2018-06-01] MEDS: (Lantus) Insulin Glargine, Recombinant SC SCH (22:36)
[2018-06-02] MEDS: metroNIDAZOLE IV 500 mg/100 ml 500 MG/100 ML BAG IVPB SCH ×3 (00:26→17:42)
--- NOTE | 2018-06-02 01:11 | DS ---
HOSPITAL COURSE: I saw him sitting in the bed this morning. He has a Taxus catheter on board. IV fluids are running; I will stop them. He was having normal bowel movements. His blood sugar was under 200 this morning, in 190s. He did have a run of 7 beats of V-tach asymptomatically, called Cardiology to evaluate. He is on aspirin, Bacid, Crestor, Desyrel, dextrose as needed, Flagyl IV, Flomax, Haldol which is twice a day, Lantus, Lopressor, micafungin for a sinus fungal infection, Motrin, Norvasc, NovoLog, Pepcid, Remeron, Ultram and vancomycin orally subacute rehab. He has been at [facility] before; I would like him to go there. Last blood sugar was 197. He had a consult with Infectious Disease. He came in with DKA, acute headache. He had pain and fungal sinusitis. He had a consult with Endocrinology for his blood sugar which was 700 when he came in, but he is very noncompliant when he goes home. He had asymptomatic nonsustained V-tach, hemodynamically stable, declines any further workup from the jtac, does not want any blood work or echocardiogram. They started him on metoprolol 25 mg twice a day, no further cardiology workup. So my plan for him today would be to discharge him to [facility], where he has been before, for subacute rehab. As blood test he was refusing blood test since then. Last blood sugar was 197. Hopefully, we can discharge him to subacute rehab today at [facility] if Case Management and Systems Specialist can arrange that today. He is to finish up the metronidazole and the micafungin for another week at [facility], continue with vancomycin oral for another week, blood pressure coverage on the same amount of medication he is getting now. Zohaib Morgan DO DAISY
--- NOTE | 2018-06-02 07:25 | PN ---
DATE: 06/02/2018 SUBJECTIVE: He is resting comfortably in bed. He is doing better. He is eating better. His bowels are formed. MEDICATIONS: He is on aspirin, Bacid, Crestor, Desyrel, dextrose, Flagyl, Flomax, Haldol, Lantus, Lopressor, micafungin IV, Motrin, Norvasc, NovoLog, Pepcid, Remeron, Ultram, and vancomycin oral. PHYSICAL EXAMINATION: GENERAL: Overall, he is doing much better. He is alert and comfortable, slept well. VITAL SIGNS: He has a 97.9 temp, 64 pulse, 167/87 blood pressure, 20 respiratory rate, and 100% O2 sat on room air. HEENT: Head is atraumatic and normocephalic. HEART: Regular rate. LUNGS: Decreased breath sounds, but clear. ABDOMEN: Soft, nontender. Positive bowel sounds. EXTREMITIES: No edema. I am trying to get him back to subacute rehab at [facility]. He has been there before. His last lab was on 05/29/2017. He has been refusing labs. I will order it again. Last blood sugar was 201. Overall, he is improved. He has been seen by Endocrinology, Infectious Disease. Adjustment has been made to his insulin by Endocrinology. I am hoping to get him to a subacute rehab at [facility]. He has been there before. headache and neck pain. Right now, he does not have the headache or neck pain. He is status post BKA. He has got a sinus fungal infection. He is on IV antibiotics and p.o. antibiotics. He is improving. We will continue aggressive treatment and care, and with director social service, case management was arranged for him today. Transferred to [facility]. We will do that. Until then, we will continue our treatment. Zohaib Morgan DO MTDD
[2018-06-02] MEDS: (Novolog) Insulin Aspart, Recombinant 100 u/ml 10 ml vial SC SCH ×7 (07:36→21:31)
[2018-06-02] MEDS: Vancomycin 125 MG/5 ML SOLN (ORAL/RECTAL) PO SCH ×4 (10:12→21:39)
[2018-06-02] MEDS: Lactobacillus Acidophilus 500 MU Cap PO SCH ×2 (10:12→17:41)
--- NOTE | 2018-06-02 15:08 | PN ---
DATE: 06/02/2018 ENDOCRINOLOGY FOLLOWUP NOTE LOCATION: Room 667. This is a 72-year-old male with recent uncontrolled type 2 insulin-requiring diabetes, now being followed closely for metabolic management. His glycemic levels are still really fluctuating with the variability of his oral intake and glucose values overnight have ranged from 84 to 175 and 201 mg/dL. It was 320 this morning at breakfast time, and today at lunchtime, is 120 mg/dL. So, at this time with the variability of his oral intake and also with extreme metabolic lability with underlying autonomic neuropathy, we will be prudent and careful to adjust his dose regimen accordingly. We will continue the low-dose basal and bolus insulin drug combination with NovoLog given as 6 units t.i.d. before meals as ordered. We will continue the Lantus given as basal insulin at 12 units subcu at bedtime daily as given. We will titrate incrementally as indicated to optimize metabolic control. We will follow. Myrna Sheffield MD
[2018-06-02] MEDS: Micafungin 100 MG in Sodium Chloride 0.9% 100 ML IV SCH (16:15)
[2018-06-02] MEDS ORDERED: (Novolog) Insulin Aspart, Recombinant 100 u/ml 10 ml vial SC STA (18:00)
[2018-06-02] MEDS: (Lantus) Insulin Glargine, Recombinant SC SCH (21:39)
[2018-06-03] MEDS: metroNIDAZOLE IV 500 mg/100 ml 500 MG/100 ML BAG IVPB SCH ×3 (00:23→18:54)
[2018-06-03] MEDS: (Novolog) Insulin Aspart, Recombinant 100 u/ml 10 ml vial SC SCH ×7 (08:00→22:06)
--- NOTE | 2018-06-03 09:34 | PN ---
DATE: 06/03/2018 SUBJECTIVE: He is resting comfortably in bed. He is alert. His bowels are back to normal and has formed stools. He is eating well. He needs to go to subacute rehab this week, difficulty for him to get around after recommendation from physical therapy, waiting for his insurance company to work with social service assistant and case management to get him back to [facility]. PHYSICAL EXAMINATION: GENERAL: He is motivated and wants to work better. VITAL SIGNS: He has a 98.3 temperature, 66 pulse, 132/70 blood pressure, 20 respiratory rate, and 99% O2 sat on room air. HEENT: Head is atraumatic and normocephalic. HEART: Regular rate. LUNGS: Decreased breath sounds, but clear. ABDOMEN: Soft. Bowels are now back to normal. EXTREMITIES: No edema. MEDICATIONS: Aspirin, Bacid, Crestor, Desyrel, dextrose, Flagyl, Flomax, glucagon, Pletal, Haldol, Lantus, Lopressor, micafungin, Motrin, Norvasc, NovoLog, Pepcid, Remeron, Ultram, vancomycin. LABS: He has been refusing labs, last blood sugar was 130. He has been seen by Endocrinology and Infectious Disease. His blood sugar is definitely improving. He is on IV antibiotics, p.o. antibiotics, colitis improving. Procalcitonin is decreasing. We will continue with aggressive treatment and care. Hopefully, we will get him to subacute rehab at [facility] today. Zohaib Morgan DO MTDGeoffrey
[2018-06-03] MEDS: Lactobacillus Acidophilus 500 MU Cap PO SCH ×2 (10:16→18:54)
[2018-06-03] MEDS: Vancomycin 125 MG/5 ML SOLN (ORAL/RECTAL) PO SCH ×4 (10:58→22:27)
[2018-06-03] MEDS: Micafungin 100 MG in Sodium Chloride 0.9% 100 ML IV SCH (18:05)
--- NOTE | 2018-06-03 18:29 | PN ---
DATE: 06/03/2018 ENDOCRINOLOGY FOLLOWUP NOTE LOCATION: In room 667. SUBJECTIVE: This is a 72-year-old male with recent uncontrolled type 2 insulin-requiring diabetes with extremes of glycemic fluctuations and is now being followed closely for metabolic management. His glycemic levels are fluctuating once again as noted and the glucose values have ranged from 79 to 115 and 130 mg/dL. So at this time, we will modify once again his basal and bolus insulin regimen and lower the NovoLog to 4 units subcu t.i.d. to start at dinnertime today as ordered. We will also continue the low dose correction scale using NovoLog insulin as given. We will also lower the basal insulin down to 8 units of Lantus at bedtime daily to start tonight. We will obtain serial chemistries and supplement accordingly as needed. We will follow and advise accordingly. Myrna Sheffield MD
[2018-06-03] MEDS ORDERED: (Lantus) Insulin Glargine, Recombinant SC SCH (22:00)
[2018-06-04 00:46] VITALS: RESP 20
[2018-06-04] MEDS: metroNIDAZOLE IV 500 mg/100 ml 500 MG/100 ML BAG IVPB SCH ×2 (00:49→08:35)
[2018-06-04] MEDS: (Novolog) Insulin Aspart, Recombinant 100 u/ml 10 ml vial SC SCH ×4 (08:25→12:51)
[2018-06-04 08:36] VITALS: BP 158/81; PULSE 65; TEMP 97.8; O2SAT 99
--- NOTE | 2018-06-04 09:21 | PN ---
DATE: 06/04/2018 SUBJECTIVE: He is resting comfortably in bed. He is getting ready to be transferred to [facility] for subacute rehab before he goes home. We were waiting for two or three days, right now waiting for authorization of the medical insurance. He is on aspirin, Bacid, Crestor, Desyrel, dextrose, Flagyl, Flomax, Haldol, Lantus, Lopressor, micafungin, Motrin, Norvasc, NovoLog, Pepcid, Remeron, Ultram and vancomycin. His headache is much better. His spells are much better. He does have some cataracts. He wants to see an eye doctor. PHYSICAL EXAMINATION: VITAL SIGNS: He has a 98.3 temperature, 64 pulse, 155/84 blood pressure, 20 respiratory rate, and 100% O2 sat on room air. HEENT: His head is atraumatic and normocephalic. He has poor vision from cataracts. HEART: Regular rate. LUNGS: Decreased breath sounds, but clear. ABDOMEN: Soft, nontender. EXTREMITIES: No edema. He is eating well, going to the bathroom well and that has all improved. LABORATORY DATA: He has a 4.9 white count, same as all on 05/29/2018. He refuses any other lab test since 05/29/2018. His last blood sugar was 152. He is being seen by Endocrinology, Infectious Disease, and GI. He has DKA which improved. Acute fungus sinus infection, which is improving. He had C. diff which has improved. We are waiting for transfer to [facility] subacute rehab when this authorization comes in. Zohaib Morgan DO
[2018-06-04] MEDS: Lactobacillus Acidophilus 500 MU Cap PO SCH (10:11)
[2018-06-04] MEDS: Vancomycin 125 MG/5 ML SOLN (ORAL/RECTAL) PO SCH (10:13)
--- NOTE | 2018-06-04 18:56 | PN ---
DATE: 06/04/2018 ENDOCRINOLOGY FOLLOWUP NOTE LOCATION: In room 667. This is a 72-year-old male with recent uncontrolled type 2 insulin-requiring diabetes now being followed closely for metabolic management. His glycemic levels are fluctuating as noted overnight, but have improved accordingly as noted. His glucose levels have ranged from 152 to 269 mg/dL. So, at this time because of the extremes of glycemic fluctuations, we recommend the same dose regimen, which was actually modified for eventual discharge today. We will continue the Lantus given as 8 units subcutaneously at bedtime daily as given. We will continue the NovoLog given as 4 units subcutaneously t.i.d. before meals as ordered. We will obtain serial chemistries and supplement accordingly as needed. We will follow. Myrna Sheffield MD
== END 2018-06-04 13:35 | DRG 638 ==
LOC: C.ER 12:06 → C.9E 15:24 → C.9I 16:09 → C.6T 05-29 14:49
PROVIDERS: ADMIT Family Medicine; ATTEND Family Medicine
PROC: 02HV33Z Insertion of Infusion Device into Superior Vena Cava, Percutaneous Approach (ICD-10-PCS; principal; 2018-05-27)
DX: E11.10 Type 2 diabetes mellitus with ketoacidosis without coma (principal); E87.1 Hypo-osmolality and hyponatremia; I13.0 Hypertensive heart and chronic kidney disease with heart failure and stage 1 through stage 4 chronic kidney disease, or unspecified chronic kidney disease; I47.2 Ventricular tachycardia; E11.22 Type 2 diabetes mellitus with diabetic chronic kidney disease; E11.319 Type 2 diabetes mellitus with unspecified diabetic retinopathy without macular edema; E11.51 Type 2 diabetes mellitus with diabetic peripheral angiopathy without gangrene; E78.00 Pure hypercholesterolemia, unspecified; E86.0 Dehydration; E87.6 Hypokalemia; F03.90 Unspecified dementia, unspecified severity, without behavioral disturbance, psychotic disturbance, mood disturbance, and anxiety; D64.9 Anemia, unspecified; I25.10 Atherosclerotic heart disease of native coronary artery without angina pectoris; I50.9 Heart failure, unspecified; J32.9 Chronic sinusitis, unspecified; N18.9 Chronic kidney disease, unspecified; N40.0 Benign prostatic hyperplasia without lower urinary tract symptoms; Z79.4 Long term (current) use of insulin; Z91.19 Patient's noncompliance with other medical treatment and regimen; Z96.641 Presence of right artificial hip joint; B19.20 Unspecified viral hepatitis C without hepatic coma; K52.9 Noninfective gastroenteritis and colitis, unspecified; E11.21 Type 2 diabetes mellitus with diabetic nephropathy; E11.42 Type 2 diabetes mellitus with diabetic polyneuropathy; E11.649 Type 2 diabetes mellitus with hypoglycemia without coma